=== PATIENT | male | born 1945 | race Caucasian/White ===

== ENCOUNTER 2017-02-09 10:05 | Inpatient (IN) | payer MEDICARE ==
[2017-02-09] MEDS ORDERED: ASPIRIN 81 MG CHEW PO STA (10:42)
[2017-02-09] MEDS ORDERED: NITROGLYCERIN SL TABS 0.4 MG TAB SUBLINGUAL STA ×3 (10:42)
--- NOTE | 2017-02-09 10:45 | ED ---
General Adult HPI - General Chief complaint: Chest Pain Stated complaint: CHEST PAIN Time Seen by Provider: 02/09/17 10:37 Source: patient, family, RN notes reviewed Mode of arrival: wheelchair Limitations: no limitations - History of Present Illness Initial comments: Patient is a pleasant 71-year-old male presenting to the emergency department complaining of chest discomfort. Symptoms have been intermittent over the past couple of weeks. Discomfort is currently 4/10. Discomfort feels like pressure. There is associated dyspnea. No nausea. No diaphoresis. Patient does have a history of similar symptoms previously associated with heart problems. Patient does have a history of 5 stents. - Related Data Home Medications Medication Instructions Recorded Confirmed Allopurinol [Zyloprim] 300 mg PO DAILY 06/07/14 02/09/17 Aspirin 325 mg PO DAILY 06/07/14 02/09/17 Insulin NPH Hum/Reg Insulin Hm 10 unit SQ AC-SUPPER 06/07/14 02/09/17 [NovoLIN 70-30 100 UNIT/ML VIAL] Insulin NPH Hum/Reg Insulin Hm 20 unit SQ AC-BRKFST 06/07/14 02/09/17 [NovoLIN 70-30 100 UNIT/ML VIAL] Isosorbide Mononitrate [Imdur] 30 mg PO DAILY 06/07/14 02/09/17 metFORMIN HCL 1,000 mg PO BID 06/07/14 02/09/17 Carvedilol [Coreg] 12.5 mg PO BID 03/07/16 02/09/17 Ergocalciferol [Vitamin D2 50,000 unit PO Q14D 03/07/16 02/09/17 (DRISDOL)] Ferrous Sulfate [Iron (65 MG 325 mg PO DAILY 03/07/16 02/09/17 Elemental)] Previous Rx's Medication Instructions Recorded Spironolactone [Aldactone] 25 mg PO DAILY #30 tab 03/09/16 Allergies Allergy/AdvReac Type Severity Reaction Status Date / Time No Known Allergies Allergy Verified 02/09/17 11:55 Review of Systems ROS Statement: Those systems with pertinent positive or pertinent negative responses have been documented in the HPI. ROS Other: All systems not noted in ROS Statement are negative. Constitutional: Denies: fever Eyes: Denies: eye pain ENT: Denies: ear pain Respiratory: Reports: dyspnea. Denies: cough Cardiovascular: Reports: chest pain Endocrine: Denies: fatigue Gastrointestinal: Denies: abdominal pain Genitourinary: Denies: dysuria Musculoskeletal: Denies: back pain Skin: Denies: rash Neurological: Denies: weakness Past Medical History Past Medical History: Diabetes Mellitus, GERD/Reflux, Hyperlipidemia, Musculoskeletal Disorder Additional Past Medical History / Comment(s): SEE H & P FOR CARDIAC HX Last Myocardial Infarction Date:: 2001 History of Any Multi-Drug Resistant Organisms: None Reported Past Surgical History: Heart Catheterization, Heart Catheterization With Stent, Joint Replacement, Orthopedic Surgery Additional Past Surgical History / Comment(s): BILAT TOTAL KNEE REPLACEMENT, RT KNEE SCOPE, BILAT CTR, (R) shoulder surgery. Past Anesthesia/Blood Transfusion Reactions: No Reported Reaction Date of Last Stent Placement:: 2001 Past Psychological History: No Psychological Hx Reported Smoking Status: Former smoker Past Alcohol Use History: None Reported Past Drug Use History: None Reported - Past Family History Father History Unknown: Yes Mother History Unknown: Yes Additional Family Medical History / Comment(s): pt states she is and he does not know history General Exam Limitations: no limitations General appearance: alert, in no apparent distress Head exam: Present: atraumatic Eye exam: Present: normal appearance, PERRL ENT exam: Present: normal oropharynx Neck exam: Present: normal inspection Respiratory exam: Present: normal lung sounds bilaterally. Absent: chest wall tenderness Cardiovascular Exam: Present: regular rate, normal rhythm Expanded Peripheral pulses: 2+: Radial (R), Radial (L), Posterior Tibialis (R), Posterior Tibialis (L) GI/Abdominal exam: Present: soft. Absent: tenderness Extremities exam: Present: normal inspection. Absent: pedal edema, calf tenderness Neurological exam: Present: alert Psychiatric exam: Present: normal affect, normal mood Skin exam: Absent: rash Course Vital Signs 02/09/17 02/09/17 02/09/17 10:15 10:45 11:18 Temperature 97.4 F L Pulse Rate 72 67 Pulse Rate [ 71 Brush Maker Machine ] Respiratory 20 18 Rate Blood Pressure 130/74 130/67 O2 Sat by Pulse 98 97 Oximetry 02/09/17 02/09/17 11:50 12:40 Temperature Pulse Rate 67 65 Pulse Rate [ Brush Maker Machine ] Respiratory 18 18 Rate Blood Pressure 130/73 125/58 O2 Sat by Pulse 98 98 Oximetry - Reevaluation(s) Reevaluation #1: 03/19/17 10:50 Repeat EKG shows normal sinus rhythm at 69. DC 170. QRS 126. QT 436. QTc 467. Left axis. Right bundle branch block. Inferior Q waves with T wave inversion. Q waves in leads V3 and V4 with T wave inversion. EKG Findings - EKG Comments: EKG Findings:: Normal sinus rhythm at 69. DC 180. QRS 126. QT 418. QTC 447. Left axis. Right bundle branch block. Inferior Q waves with inverted T waves. Poor R-wave progression. Q waves with inverted T waves laterally. Medical Decision Making - Medical Decision Making Patient reevaluated and resting comfortably in bed. Patient and family updated on results and plan. Case discussed in detail with Dr. Alcantara, who will admit for hospital call. Admission orders written. Cardiac consult placed. Heparin started IV. - Lab Data Result diagrams: 02/09/17 10:26 02/09/17 10:26 Lab Results 02/09/17 02/09/17 02/09/17 Range/Units 10:26 10:26 10:26 WBC 4.0 (3.8-10.6) k/uL RBC 3.89 L (4.30-5.90) m/uL Hgb 13.1 (13.0-17.5) gm/dL Hct 38.7 L (39.0-53.0) % MCV 99.5 (80.0-100.0) fL MCH 33.8 (25.0-35.0) pg MCHC 34.0 (31.0-37.0) g/dL RDW 13.8 (11.5-15.5) % Plt Count 84 L (150-450) k/uL Neutrophils % 59 % Lymphocytes % 30 % Monocytes % 5 % Eosinophils % 2 % Basophils % 1 % Neutrophils # 2.4 (1.3-7.7) k/uL Lymphocytes # 1.2 (1.0-4.8) k/uL Monocytes # 0.2 (0-1.0) k/uL Eosinophils # 0.1 (0-0.7) k/uL Basophils # 0.0 (0-0.2) k/uL Polychromasia Present PT (9.0-12.0) sec INR (<1.1) APTT (22.0-30.0) sec Sodium 143 (137-145) mmol/L Potassium 4.2 (3.5-5.1) mmol/L Chloride 105 (98-107) mmol/L Carbon Dioxide 25 (22-30) mmol/L Anion Gap 13 mmol/L BUN 11 (9-20) mg/dL Creatinine 0.70 (0.66-1.25) mg/dL Est GFR (MDRD) Af Amer >60 (>60 ml/min/1.73 sqM) Est GFR (MDRD) Non-Af >60 (>60 ml/min/1.73 sqM) Glucose 116 H (74-99) mg/dL Calcium 9.6 (8.4-10.2) mg/dL Magnesium 1.6 (1.6-2.3) mg/dL Total Bilirubin 0.9 (0.2-1.3) mg/dL AST 29 (17-59) U/L ALT 33 (21-72) U/L Alkaline Phosphatase 91 (38-126) U/L Total Creatine Kinase 31 L (55-170) U/L CK-MB (CK-2) 1.7 (0.0-2.4) ng/mL CK-MB (CK-2) Rel Index 5.5 Troponin I <0.012 (0.000-0.034) ng/mL Total Protein 7.1 (6.3-8.2) g/dL Albumin 4.2 (3.5-5.0) g/dL 02/09/17 Range/Units 10:26 WBC (3.8-10.6) k/uL RBC (4.30-5.90) m/uL Hgb (13.0-17.5) gm/dL Hct (39.0-53.0) % MCV (80.0-100.0) fL MCH (25.0-35.0) pg MCHC (31.0-37.0) g/dL RDW (11.5-15.5) % Plt Count (150-450) k/uL Neutrophils % % Lymphocytes % % Monocytes % % Eosinophils % % Basophils % % Neutrophils # (1.3-7.7) k/uL Lymphocytes # (1.0-4.8) k/uL Monocytes # (0-1.0) k/uL Eosinophils # (0-0.7) k/uL Basophils # (0-0.2) k/uL Polychromasia PT 11.0 (9.0-12.0) sec INR 1.1 (<1.1) APTT 21.9 L (22.0-30.0) sec Sodium (137-145) mmol/L Potassium (3.5-5.1) mmol/L Chloride (98-107) mmol/L Carbon Dioxide (22-30) mmol/L Anion Gap mmol/L BUN (9-20) mg/dL Creatinine (0.66-1.25) mg/dL Est GFR (MDRD) Af Amer (>60 ml/min/1.73 sqM) Est GFR (MDRD) Non-Af (>60 ml/min/1.73 sqM) Glucose (74-99) mg/dL Calcium (8.4-10.2) mg/dL Magnesium (1.6-2.3) mg/dL Total Bilirubin (0.2-1.3) mg/dL AST (17-59) U/L ALT (21-72) U/L Alkaline Phosphatase (38-126) U/L Total Creatine Kinase (55-170) U/L CK-MB (CK-2) (0.0-2.4) ng/mL CK-MB (CK-2) Rel Index Troponin I (0.000-0.034) ng/mL Total Protein (6.3-8.2) g/dL Albumin (3.5-5.0) g/dL - Radiology Data Radiology results: image reviewed (Chest x-ray shows no acute process) Critical Care Time Critical Care Time: Yes Total Critical Care Time: 31 Disposition Clinical Impression: Unstable angina pectoris Disposition: ADMITTED IP TO THIS [facility] Time of Disposition: 12:59
[2017-02-09 11:02] LABS: Basophils % (A) 1 %; CH 34.3; CHCM 34.7; Eosinophils # (A) 0.1 k/uL (0-0.7); Eosinophils % (A) 2 %; HCT 38.7 % (39.0-53.0); HDW 3.32; HGB 13.1 gm/dL (13.0-17.5); Luc # (Auto) 0.12; Luc % (Auto) 3; Lymphocytes # (A) 1.2 k/uL (1.0-4.8); Lymphocytes % (A) 30 %; MCH 33.8 pg (25.0-35.0); MCV 99.5 fL (80.0-100.0); Mean Platelet Volume 7.9; Monocytes # (A) 0.2 k/uL (0-1.0); Monocytes % (A) 5 %; Neutrophils # (A) 2.4 k/uL (1.3-7.7); Neutrophils % (A) 59 %; RBC 3.89 m/uL (4.30-5.90); RDW 13.8 % (11.5-15.5); WBC (Perox) 3.77
[2017-02-09 11:16] LABS: ALT 33 U/L (21-72); AST 29 U/L (17-59); Alkaline Phosphatase 91 U/L (38-126); Anion Gap 13 mmol/L; Blood Urea Nitrogen 11 mg/dL (9-20); Calcium 9.6 mg/dL (8.4-10.2); Carbon Dioxide 25 mmol/L (22-30); Chloride 105 mmol/L (98-107); Glucose 116 mg/dL (74-99); Magnesium 1.6 mg/dL (1.6-2.3); Non-African American GFR(MDRD) >60 (>60 ml/min/1.73 sqM); Potassium 4.2 mmol/L (3.5-5.1); Sodium 143 mmol/L (137-145); Total Bilirubin 0.9 mg/dL (0.2-1.3); Total Protein 7.1 g/dL (6.3-8.2)
[2017-02-09 11:20] LABS: Creatine Kinase 31 U/L (55-170)
[2017-02-09 11:31] LABS: Polychromasia Present
[2017-02-09 11:32] LABS: Creatine Kinase MB 1.7 ng/mL (0.0-2.4); Troponin I <0.012 ng/mL (0.000-0.034)
[2017-02-09 11:35] LABS: INR 1.1 (<1.1); Partial Thromboplastin Time 21.9 sec (22.0-30.0)
--- NOTE | 2017-02-09 12:26 | XR ---
EXAMINATION TYPE: XR chest 2V DATE OF EXAM: 02/09/2017 12:17 PM COMPARISON: Prior chest x-ray 07 March 2016 HISTORY: Chest pain TECHNIQUE: Frontal and lateral views of the chest are obtained. FINDINGS: There is no focal air space opacity, pleural effusion, or pneumothorax seen. The cardiac silhouette size is not significantly changed. Patient shows postoperative change to the shoulders. Heart size may be somewhat accentuated possibly due to technique. There are overlying cardiac leads. Prominent lung volumes may be indicative of underlying COPD. The osseous structures are intact. IMPRESSION: No acute cardiopulmonary process.
[2017-02-09] MEDS ORDERED: NITROGLYCERIN SL TABS 0.4 MG TAB SUBLINGUAL PRN (12:59)
[2017-02-09] MEDS ORDERED: HEPARIN SODIUM,PORCINE 5,000 UNIT/ML 1 ML VIAL IV ONE (12:59)
[2017-02-09] MEDS: HEPARIN SODIUM,PORCINE/D5W PMX 25,000 UNIT in DEXTROSE/WATER 1 500ML.BAG IV SCH (14:16)
--- NOTE | 2017-02-09 15:45 | P.CRDCN ---
History of Present Illness Consult date: 02/09/17 Chief complaint: Chest pain History of present illness: This is a pleasant 71-year-old gentleman who sees Dr. Johnson as an outpatient with known history of coronary artery disease with a prior stenting with unknown details at this point, diabetes, hypertension, and dyslipidemia, presented to the emergency room complaining of chest discomfort. The patient describes 3 weeks history of intermittent chest discomfort, mostly exertional, as a pressure on the chest, without any radiation and without any associated symptoms. He underwent an EKG which showed sinus rhythm with RBBB. No ischemic changes on the EKG noted. He underwent only one set of cardiac enzymes came in to be unremarkable. I will follow-up with the serial cardiac enzymes. Obtain the previous medical records from the office to see when was the last time he underwent stress test. And also continue following up with him Past Medical History Past Medical History: Diabetes Mellitus, GERD/Reflux, Hyperlipidemia, Musculoskeletal Disorder Additional Past Medical History / Comment(s): SEE H & P FOR CARDIAC HX Last Myocardial Infarction Date:: 2001 History of Any Multi-Drug Resistant Organisms: None Reported Past Surgical History: Heart Catheterization, Heart Catheterization With Stent, Joint Replacement, Orthopedic Surgery Additional Past Surgical History / Comment(s): BILAT TOTAL KNEE REPLACEMENT, RT KNEE SCOPE, BILAT CTR, (R) shoulder surgery. Past Anesthesia/Blood Transfusion Reactions: No Reported Reaction Date of Last Stent Placement:: 2001 Past Psychological History: No Psychological Hx Reported Smoking Status: Former smoker Past Alcohol Use History: None Reported Past Drug Use History: None Reported - Past Family History Father History Unknown: Yes Mother History Unknown: Yes Additional Family Medical History / Comment(s): pt states she is and he does not know history Medications and Allergies Home Medications Medication Instructions Recorded Confirmed Type Allopurinol [Zyloprim] 300 mg PO DAILY 06/07/14 02/09/17 History Aspirin 325 mg PO DAILY 06/07/14 02/09/17 History Insulin NPH Hum/Reg Insulin Hm 10 unit SQ AC-SUPPER 06/07/14 02/09/17 History [NovoLIN 70-30 100 UNIT/ML VIAL] Insulin NPH Hum/Reg Insulin Hm 20 unit SQ AC-BRKFST 06/07/14 02/09/17 History [NovoLIN 70-30 100 UNIT/ML VIAL] Isosorbide Mononitrate [Imdur] 30 mg PO DAILY 06/07/14 02/09/17 History metFORMIN HCL 1,000 mg PO BID 06/07/14 02/09/17 History Carvedilol [Coreg] 12.5 mg PO BID 03/07/16 02/09/17 History Ergocalciferol [Vitamin D2 50,000 unit PO Q14D 03/07/16 02/09/17 History (DRISDOL)] Ferrous Sulfate [Iron (65 MG 325 mg PO DAILY 03/07/16 02/09/17 History Elemental)] Allergies Allergy/AdvReac Type Severity Reaction Status Date / Time No Known Allergies Allergy Verified 02/09/17 11:55 Physical Exam Vitals: Vital Signs Temp Pulse Pulse Resp BP BP Pulse Ox 02/09/17 15:36 98 F 73 16 170/81 96 02/09/17 14:37 97.4 F L 65 18 125/58 98 Intake and Output 02/09/17 02/09/17 02/09/17 06:59 14:59 22:59 Other: Weight 115.6 kg Patient Weight 02/10/17 06:59 Weight 115.6 kg - Constitutional General appearance: no acute distress - Respiratory Respiratory: bilateral: CTA - Cardiovascular Rhythm: regular Heart sounds: normal: S1, S2 Results 02/09/17 10:26 02/09/17 10:26 Current Medications Generic Name Dose Route Start Last Admin Trade Name Freq PRN Reason Stop Dose Admin Aspirin 325 mg 02/10/17 09:00 Aspirin PO DAILY [facility] Heparin Sodium (Porcine) 0 unit 02/09/17 12:59 Heparin IV Q6HR PRN Low PTT Protocol Heparin Sodium/Dextrose 25,000 500 mls @ 19.97 mls/hr 02/09/17 13:00 14:16 unit/ IV Solution IV 8.47 units/kg/hr .Q24H BRINDA 19.97 mls/hr Protocol Administration 8.47 UNITS/KG/HR Nitroglycerin 1 inch 02/09/17 18:00 Nitro-Bid Oint TOPICAL Q6HR [facility] Nitroglycerin 0.4 mg 02/09/17 12:59 Nitrostat SUBLINGUAL Q5M PRN Chest Pain Intake and Output 02/09/17 02/09/17 02/09/17 06:59 14:59 22:59 Other: Weight 115.6 kg Patient Weight 02/10/17 06:59 Weight 115.6 kg Assessment and Plan Plan: Assessment #1 intermittent episodes of chest discomfort mostly exertional #2 known CAD with a prior stenting with unknown details #3 diabetes #4 multiple comorbid conditions Plan #1 rule out acute coronary event #2 follow-up with the serial cardiac enzymes #3 obtain the previous medical records from the office #4 follow-up with the patient
[2017-02-09 16:36] LABS: Creatine Kinase 26 U/L (55-170)
[2017-02-09 16:49] LABS: Creatine Kinase MB 1.5 ng/mL (0.0-2.4); Troponin I <0.012 ng/mL (0.000-0.034)
[2017-02-09 17:14] LABS: Glucose,Whole Blood 109 mg/dL (75-99)
[2017-02-09] MEDS: INSULIN NPH/REG INSULIN 70/30 300 UNIT/3 ML VIAL SQ SCH (19:31)
[2017-02-09] MEDS: NITROGLYCERIN OINT 1 INCH/GM PACKET TOPICAL SCH (19:32)
[2017-02-09] MEDS: CARVEDILOL 12.5 MG TAB PO SCH (19:36)
[2017-02-09] MEDS: metFORMIN 500 MG TAB PO SCH (19:36)
[2017-02-09 20:57] LABS: Glucose,Whole Blood 130 mg/dL (75-99)
[2017-02-09] MEDS: HEPARIN SODIUM,PORCINE 5,000 UNIT/ML 1 ML VIAL IV PRN (22:31)
[2017-02-09 23:39] LABS: Creatine Kinase 28 U/L (55-170)
[2017-02-09 23:50] LABS: Creatine Kinase MB 1.4 ng/mL (0.0-2.4); Troponin I <0.012 ng/mL (0.000-0.034)
[2017-02-10] MEDS: NITROGLYCERIN OINT 1 INCH/GM PACKET TOPICAL SCH ×4 (04:12→17:49)
[2017-02-10 06:02] LABS: Mean Platelet Volume 8.1
[2017-02-10] MEDS: HEPARIN SODIUM,PORCINE 5,000 UNIT/ML 1 ML VIAL IV PRN (06:35)
[2017-02-10 07:05] LABS: Glucose,Whole Blood 105 mg/dL (75-99)
--- NOTE | 2017-02-10 07:15 | HP ---
DATE OF ADMISSION: 02/09/2017 CHIEF COMPLAINT: Chest pain. HISTORY OF PRESENT ILLNESS: Mr. Johnson is a 71-year-old male with a past medical history of coronary artery disease, status post stenting, diabetes mellitus and hypertension; coming into the hospital with a chief complaint of chest pain. The patient states that his pain is mostly substernal in nature with no radiation. The patient states it has been going on and off for the past 2 to 3 weeks. It is mostly exertional. The patient denies having any difficulty in breathing, any dizziness or diaphoresis with the chest pain. The patient denies having any lower extremity swelling. No orthopnea, no PND. Patient does have history of coronary artery disease, states that he has five stents and follows with Dr. Marco Alejandre. He recently had shoulder arthroplasty done. REVIEW OF SYSTEMS: CONSTITUTIONAL: Denies having any fever, chills or rigors. CHEST: No cough, no difficulty in breathing. CARDIAC: As per HPI. GI: No abdominal pain, nausea, vomiting, or diarrhea. : No dysuria or hematuria. DERMATOLOGIC: No history of recurrent infections or easy bruising. RHEUMATOLOGIC: None. ENDOCRINE: Positive for history of hypertension and diabetes. SKIN: No rashes. MUSCULOSKELETAL: Positive for osteoarthritis in multiple joints. All 13 review of systems are done and negative except for the ones mention in the HPI. PAST MEDICAL HISTORY: Significant for hypertension, diabetes GERD, hyperlipidemia and coronary artery disease status post stenting. ALLERGIES: No known drug allergies. PAST SURGICAL HISTORY: Heart catheterization with stent placement done, multiple orthopedic surgeries. FAMILY HISTORY: Positive for cancer in his mother and coronary artery disease in his father and diabetes mellitus in his grandmother. SOCIAL HISTORY: Former smoker. Occasional alcohol. No history of intravenous drug abuse. The patient's home medications: Metformin 1000 mg p.o. b.i.d., isosorbide mononitrate 30 mg p.o. daily, aspirin 325 mg p.o. daily, allopurinol 300 mg p.o. daily, insulin 70/30-20 units with breakfast and 10 units, ferrous sulfate 325 mg p.o. daily, vitamin D2 50,000 units in 2 weeks, Coreg 12.5 mg p.o. b.i.d., spironolactone 25 mg p.o. daily. On examination, patient's vital signs temperature 98.4, heart rate 75, respirations 16, blood pressure 154/75, saturating at 96% on room air. GENERAL EXAMINATION: Patient appears to be in no acute distress. HEAD: Atraumatic, normocephalic. EYES: Pupils, round, and reactive to light. NECK: No JVD. No thyromegaly. CARDIOVASCULAR: S1, S2 heard. No additional sounds. RESPIRATORY: Bilateral breath sounds are positive. No wheeze or crackles. ABDOMEN: Soft, nontender, no organomegaly. Bowel sounds are positive. EXTREMITIES: No edema. No cyanosis, no clubbing. There is mild pitting tenderness in the left arm and lower extremity that the patient states is chronic. PSYCHIATRIC: Appropriate mood and affect. GREENHOUSE GROWER: Alert, awake, oriented x3. No focal neurological deficits. SKIN: No rashes. The patient's white count of 4, hemoglobin 13.1, platelets 84, sodium 143, potassium 4.2, chloride 105, bicarb 25, BUN 11, creatinine 0.70. Troponin less than 0.012 x 2. Albumin is 4.2. ASSESSMENT AND PLAN: 1. Unstable angina. 2. History of coronary artery disease, status post stenting. 3. Type 2 diabetes mellitus, insulin-dependent. 4. Hypertension. 5. Hyperlipidemia. 6. Osteoarthritis, multiple joint. 7. Gastroesophageal reflux disease. PLAN: The patient has been initiated on a heparin drip which will be continued. Will get serial troponins and EKGs. Patient follows with Dr. Marco Alejandre on an outpatient and states that his last stress test was in May of 2016. Will obtain the records. Cardiology on board following the patient and further recommendations to follow depending on the progress of the patient.
[2017-02-10 07:35] LABS: Cholesterol 120 mg/dL (<200); HDL Cholesterol 35 mg/dL (40-60); Triglycerides 270 mg/dL (<150)
[2017-02-10] MEDS ORDERED: ALPRAZolam 0.5 MG TAB PO PRN (08:48)
[2017-02-10] MEDS ORDERED: ASPIRIN 325 MG TAB PO STA (08:48)
[2017-02-10] MEDS ORDERED: ALPRAZolam 0.25 MG TAB PO PRN (08:48)
[2017-02-10] MEDS ORDERED: ATORVASTATIN 80 MG TAB PO STA (08:48)
[2017-02-10] MEDS ORDERED: SODIUM CHLORIDE 0.9% 1,000 ML in EMPTY BAG 1 BAG IV ONE (08:48)
[2017-02-10] MEDS ORDERED: NITROGLYCERIN SL TABS 0.4 MG TAB SUBLINGUAL PRN ×2 (08:48→12:39)
[2017-02-10] MEDS: metFORMIN 500 MG TAB PO SCH (09:08)
[2017-02-10] MEDS: INSULIN NPH/REG INSULIN 70/30 300 UNIT/3 ML VIAL SQ SCH ×2 (09:08→17:53)
[2017-02-10] MEDS: ALLOPURINOL 300 MG TAB PO SCH (09:11)
[2017-02-10] MEDS: SPIRONOLACTONE 25 MG TAB PO SCH (09:11)
[2017-02-10] MEDS: FERROUS SULFATE 325 MG TAB PO SCH (09:11)
[2017-02-10] MEDS: CARVEDILOL 12.5 MG TAB PO SCH ×2 (09:11→17:49)
[2017-02-10] MEDS: ISOSORBIDE MONONITRATE ER 30 MG TAB.ER.24H PO SCH (09:11)
--- NOTE | 2017-02-10 09:29 | PN ---
Vasquez Johnson is a 71-year-old gentleman who is admitted to hospital with unstable angina. Has known coronary artery disease and has had multiple prior angioplasties by his primary senior coldfusion developer Dr. Marco Alejandre. Since admission he ruled out for myocardial infarction and is pain-free this morning. I talked to him about his treatment options including undergoing a stress test or going through invasive angiography to definitively rule out progression in his underlying CAD. The patient opted to have a cardiac catheterization and I spoke to Dr. Morrow, who saw him on this admission to go ahead and do this today.
[2017-02-10] MEDS ORDERED: IV FLUID CONTINUATION 1,000 ML IV ONE (11:33)
[2017-02-10] MEDS ORDERED: MIDAZOLAM 2 MG/2 ML VIAL ONE (11:39)
[2017-02-10] MEDS ORDERED: LIDOCAINE 2% INJ 20 MG/ML (20 ML MDV) ONE (11:39)
[2017-02-10] MEDS ORDERED: VERAPAMIL 2.5 MG/ML 2 ML AMP ONE (11:39)
[2017-02-10] MEDS ORDERED: SODIUM CHLORIDE 0.9% (PF) 10 ML VIAL ONE (11:39)
[2017-02-10] MEDS ORDERED: HEPARIN SODIUM 1,000 UNIT/ML VIAL ONE (11:42)
[2017-02-10] MEDS ORDERED: MIDAZOLAM 2 MG/2 ML VIAL IVP ONE (11:55)
[2017-02-10] MEDS ORDERED: LIDOCAINE 2% (PF) 20 MG/ML 10ML SQ ONE (11:57)
[2017-02-10] MEDS ORDERED: LIDOCAINE 2% INJ 20 MG/ML SQ ONE (11:57)
[2017-02-10] MEDS ORDERED: VERAPAMIL SYRINGE (5 MG/10 ML) INTRAARTER ONE ×2 (11:58→12:21)
[2017-02-10] MEDS ORDERED: HEPARIN SODIUM 1,000 UNIT/ML VIAL IV ONE (12:00)
[2017-02-10] MEDS ORDERED: BIVALIRUDIN BOLUS 250 MG/50 ML IV ONE (12:10)
[2017-02-10] MEDS ORDERED: CLOPIDOGREL 75 MG TAB ONE (12:17)
[2017-02-10] MEDS ORDERED: NITROGLYCERIN 1000MCG/10ML SYRINGE INTRACORON ONE (12:18)
--- NOTE | 2017-02-10 12:18 | ECHOF ---
Referral Reason:chest pain MEASUREMENTS -------- HEIGHT: 170.2 cm WEIGHT: 115.2 kg BP: 123/61 RVIDd: 3.7 cm (< 3.3) IVSd: 1.1 cm (0.6 - 1.1) LVIDd: 5.8 cm (3.9 - 5.3) LVPWd: 1.2 cm (0.6 - 1.1) IVSs: 1.8 cm LVIDs: 4.3 cm LVPWs: 1.8 cm LA Diam: 4.3 cm (2.7 - 3.8) LAESV Index (A-L): 31.04 ml/m Ao Diam: 3.4 cm (2.0 - 3.7) AV Cusp: 2.1 cm (1.5 - 2.6) LA Diam: 3.7 cm (2.7 - 3.8) MV EXCURSION: 15.662 mm (> 18.000) MV EF SLOPE: 39 mm/s (70 - 150) EPSS: 1.1 cm MV E Venkat: 0.77 m/s MV DecT: 341 ms MV A Vnekat: 0.98 m/s MV E/A Ratio: 0.79 RAP: 5.00 mmHg RVSP: 17.95 mmHg FINDINGS -------- Sinus rhythm. This was a technically difficult study with suboptimal views. There is borderline concentric left ventricular hypertrophy. Overall left ventricular systolic function is mild-moderately impaired with, an EF between 40 - 45 %. Basal lateral LV wall motion is hypokinetic. Basal inferior LV wall motion is normal. Mid lateral LV wall motion is normal. Mid inferior LV wall motion is normal. The right ventricle is mildly enlarged. LA is midly dilated 29-33ml/m2. The right atrium is normal in size. 1.5mg of Definity was utilized for enhancement of images Aortic valve is trileaflet and is mildly thickened. Mild mitral annular calcification present. There is trace mitral regurgitation. Trace tricuspid regurgitation present. Trace/mild (physiologic) pulmonic regurgitation. The aortic root, ascending aorta and aortic arch are normal. Normal inferior vena cava with normal inspiratory collapse consistent with estimated right atrial pressure of 5 mmHg. Echo free space may represent effusion or a pericardial fat pad. CONCLUSIONS -------- 1. Sinus rhythm. 2. LA is midly dilated 29-33ml/m2. 3. The right atrium is normal in size. 4. 1.5mg of Definity was utilized for enhancement of images 5. Aortic valve is trileaflet and is mildly thickened. 6. Mild mitral annular calcification present. 7. There is trace mitral regurgitation. 8. Trace tricuspid regurgitation present. 9. Trace/mild (physiologic) pulmonic regurgitation. 10. The aortic root, ascending aorta and aortic arch are normal. 11. Normal inferior vena cava with normal inspiratory collapse consistent with estimated right atrial pressure of 5 mmHg. 12. This was a technically difficult study with suboptimal views. 13. Echo free space may represent effusion or a pericardial fat pad. 14. There is borderline concentric left ventricular hypertrophy. 15. Overall left ventricular systolic function is mild-moderately impaired with, an EF between 40 - 45 %. 16. Basal lateral LV wall motion is hypokinetic. 17. Basal inferior LV wall motion is normal. 18. Mid lateral LV wall motion is normal. 19. Mid inferior LV wall motion is normal. 20. The right ventricle is mildly enlarged. DRY CELL SEALER: Mercy Harris RDCS
[2017-02-10] MEDS ORDERED: CLOPIDOGREL 75 MG TAB PO ONE (12:20)
[2017-02-10] MEDS ORDERED: IOHEXOL 350 MG/ML 100 ML BOTTLE INJ ONE (12:23)
[2017-02-10] MEDS ORDERED: BIVALIRUDIN 250 MG in SODIUM CHLORIDE 0.9% 50 ML IV ONE (12:32)
[2017-02-10] MEDS ORDERED: ATROPINE SULFATE 0.1 MG/ML 10ML SYRINGE IV PRN (12:39)
[2017-02-10] MEDS ORDERED: MAG HYDROX/AL HYDROX/SIMETH 30 ML CUP PO PRN (12:39)
[2017-02-10] MEDS ORDERED: RX INFO: IV CONTRAST WAS GIVEN 1 EACH MISC MISCELLANE PRN (12:39)
[2017-02-10] MEDS ORDERED: ZOLPIDEM 5 MG TAB PO PRN (12:39)
[2017-02-10] MEDS ORDERED: SODIUM CHLORIDE 0.9% 1,000 ML IV SCH (12:45)
[2017-02-10] MEDS ORDERED: HYDROmorphone 1 MG/ML 1 ML SYRINGE IVP PRN (13:18)
[2017-02-10] MEDS: ASPIRIN 325 MG TAB PO SCH (15:30)
[2017-02-10] MEDS: HEPARIN SODIUM,PORCINE/D5W PMX 25,000 UNIT in DEXTROSE/WATER 1 500ML.BAG IV SCH (15:32)
[2017-02-10 16:51] LABS: Glucose,Whole Blood 105 mg/dL (75-99)
[2017-02-10 20:51] LABS: Glucose,Whole Blood 122 mg/dL (75-99)
[2017-02-10] MEDS ORDERED: ATORVASTATIN 80 MG TAB PO SCH (21:00)
[2017-02-11] MEDS: NITROGLYCERIN OINT 1 INCH/GM PACKET TOPICAL SCH ×4 (00:05→17:25)
[2017-02-11 05:47] LABS: Glucose,Whole Blood 121 mg/dL (75-99)
[2017-02-11 06:32] LABS: Basophils % (A) 1 %; CH 33.8; CHCM 34.7; Eosinophils # (A) 0.1 k/uL (0-0.7); Eosinophils % (A) 3 %; HCT 36.8 % (39.0-53.0); HDW 3.28; HGB 12.8 gm/dL (13.0-17.5); Luc # (Auto) 0.17; Luc % (Auto) 4; Lymphocytes % (A) 25 %; MCHC 34.7 g/dL (31.0-37.0); Mean Platelet Volume 8.3; Monocytes # (A) 0.2 k/uL (0-1.0); Monocytes % (A) 6 %; Neutrophils # (A) 2.3 k/uL (1.3-7.7); Neutrophils % (A) 61 %; RBC 3.75 m/uL (4.30-5.90); RDW 13.7 % (11.5-15.5); WBC 3.8 k/uL (3.8-10.6); WBC (Perox) 3.69
[2017-02-11 06:46] LABS: Anion Gap 10 mmol/L; Blood Urea Nitrogen 12 mg/dL (9-20); Calcium 9.5 mg/dL (8.4-10.2); Carbon Dioxide 26 mmol/L (22-30); Chloride 104 mmol/L (98-107); Glucose 112 mg/dL (74-99); Non-African American GFR(MDRD) >60 (>60 ml/min/1.73 sqM); Potassium 4.1 mmol/L (3.5-5.1); Sodium 140 mmol/L (137-145)
[2017-02-11] MEDS: CARVEDILOL 12.5 MG TAB PO SCH ×2 (06:54→17:23)
[2017-02-11] MEDS: INSULIN NPH/REG INSULIN 70/30 300 UNIT/3 ML VIAL SQ SCH ×2 (06:54→17:24)
--- NOTE | 2017-02-11 07:06 | PN ---
DATE OF SERVICE: 02/10/2017 INTERVAL HISTORY: Mr. Johnson is a 71-year-old male with a past medical history of coronary artery disease, status post 5 stents placement, diabetes mellitus, hypertension admitted to the hospital with a chief complaint of chest pain. Patient complained of exertional chest pain and cardiology on board and patient has been scheduled for a cardiac cath today. ON REVIEW OF SYSTEMS: CONSTITUTIONAL: Denies having any fever, chills or rigors. RESPIRATORY; No cough. No difficulty in breathing. GI: No abdominal pain, nausea, vomiting or diarrhea. CARDIAC: No chest pain, no palpitations. : No dysuria or hematuria. Patient's medications have been reviewed. On examination, patient's vital signs: Temperature 97, heart rate 70, respiratory rate 17, blood pressure 136/63 saturating 97% on room air. GENERAL EXAMINATION: Patient appears to be in no acute distress. HEAD: Atraumatic, normocephalic. EYES: Pupils round and reactive to light. NECK: No JVD. No thyromegaly. CARDIOVASCULAR: S1, S2 heard. RESPIRATORY; Bilateral breaths sounds are positive. No wheeze or crackles. ABDOMEN: Soft, nontender. Bowel sounds positive. EXTREMITIES: No edema. No cyanosis. No clubbing. HARNESS BUILDER: Alert, awake, oriented x3. No focal neurological deficits. SKIN: No rash. PSYCHIATRIC: Appropriate mood and affect. PATIENT'S LABS: No new labs from today. Labs from yesterday within normal limits. ASSESSMENT AND PLAN: 1. Unstable angina. 2. History of coronary artery disease, status post stenting. 3. Type 2 diabetes mellitus, insulin dependent. 4. Hypertension. 5. Hyperlipidemia. 6. Osteoarthritis multiple joints, primary. 7. Gastroesophageal reflux disease. PLAN: Patient was initially started on heparin drip with monitoring of serial troponins and EKGs. Today Cardiology, Dr. Akhtar has taken the patient for a cardiac cath. Further recommendations depending on the progress of the patient.
[2017-02-11 08:21] LABS: Hemoglobin A1C 5.3 % (4.2-6.1)
[2017-02-11] MEDS: ALLOPURINOL 300 MG TAB PO SCH (08:38)
[2017-02-11] MEDS: FERROUS SULFATE 325 MG TAB PO SCH (08:38)
[2017-02-11] MEDS: ISOSORBIDE MONONITRATE ER 30 MG TAB.ER.24H PO SCH (08:39)
[2017-02-11] MEDS: SPIRONOLACTONE 25 MG TAB PO SCH (08:39)
[2017-02-11] MEDS: ASPIRIN 325 MG TAB PO SCH (08:42)
--- NOTE | 2017-02-11 08:49 | P.PN ---
Subjective Principal diagnosis: Chest Pain This is a pleasant 71-year-old gentleman who sees Dr. Johnson in the office. He has a known history of coronary artery disease and prior stenting, diabetes, hypertension and dyslipidemia. He presented to the emergency room complaining of chest discomfort intermittent for the last 3 weeks. Chest pain was mostly exertional and described as a pressure. No radiation or associated symptoms. EKG on admission showed sinus rhythm with a right bundle branch block and troponin was negative 3. Patient underwent cardiac catheterization by Dr. Morrow , right radial approach and stent placement to the proximal RCA. Patient has been up and bleeding this morning and is feeling well. Denies further complaints of chest pressure. He has no complains of shortness of breath, dizziness, edema, palpitations or syncope. Objective - Vital Signs Vital signs: Vital Signs Temp 97.7 F 02/11/17 04:00 Pulse 66 02/11/17 04:00 Resp 18 02/11/17 04:00 BP 124/68 02/11/17 04:00 Pulse Ox 96 02/11/17 04:00 Intake & Output 02/10/17 02/11/17 02/11/17 18:59 06:59 18:59 Intake Total 940 600 Output Total 200 Balance 740 600 Intake: Intake, IV Titration 700 Amount Sodium Chloride 0.9% 1, 700 000 ml @ 100 mls/hr IV . Q10H BRINDA Rx#:[id number] Oral 240 600 Output: Urine 200 Other: Voiding Method Toilet Toilet # Voids 1 3 - Exam PHYSICAL EXAMINATION: HEENT: Head is atraumatic, normocephalic. Pupils equal, round. Neck is supple. There is no elevated jugular venous pressure. HEART EXAMINATION: Heart sounds regular, S1 and S2 normal. No murmur or gallop heard. CHEST EXAMINATION: Lungs are clear to auscultation and precussion. No chest wall tenderness is noted on palpation or with deep breathing. ABDOMEN: Soft, obese, nontender. Bowel sounds are heard. No organomegaly noted. EXTREMITIES: 2+ peripheral pulses with no evidence of peripheral edema and no calf tenderness noted. Right radial puncture site soft without hematoma. NEUROLOGIC patient is awake, alert and oriented x3. . - Labs CBC & Chem 7: 02/11/17 05:47 02/11/17 05:47 Labs: Abnormal Lab Results - Last 24 Hours (Table) 02/10/17 02/10/17 02/11/17 Range/Units 16:49 20:50 05:46 RBC (4.30-5.90) m/uL Hgb (13.0-17.5) gm/dL Hct (39.0-53.0) % Plt Count (150-450) k/uL Glucose (74-99) mg/dL POC Glucose (mg/dL) 105 H 122 H 121 H (75-99) mg/dL 02/11/17 02/11/17 Range/Units 05:47 05:47 RBC 3.75 L (4.30-5.90) m/uL Hgb 12.8 L (13.0-17.5) gm/dL Hct 36.8 L (39.0-53.0) % Plt Count 74 L (150-450) k/uL Glucose 112 H (74-99) mg/dL POC Glucose (mg/dL) (75-99) mg/dL Assessment and Plan Plan: Assessment and plan #1 chest pain #2 status post stent placement to the proximal RCA #3 known history of CAD #4 diabetes #5 obesity From cardiology's standpoint, patient may be discharged home today. Continue Aldactone 25 mg by mouth daily, Imdur 30 mg by mouth daily, aspirin 325 mg by mouth daily, Plavix 75 mg by mouth daily and carvedilol 12.5 milligrams by mouth twice a day. He will see Dr. Johnson in the office in one week for follow-up. The above dictated assessment and findings were discussed with signing physician. The impression and plan of care have been directed as dictated. Maria E Juarez, Nurse Practitioner, acting as scribe for signing physician.
[2017-02-11 09:46] VITALS: RESP 16; TEMP 96.6
--- NOTE | 2017-02-11 10:22 | LTR ---
February 10, 2017 Dr. Izaguirre RE: Vasquez Johnson Dear Dr. Izaguirre Mr. Vasquez Johnson presented to the hospital with chest discomfort concerning for angina and he underwent a heart catheterization and stenting of the right coronary artery. Thank you for allowing us to participate in his care. Please do not hesitate to call if you have any questions or concerns. Sincerely, IVA JACKSON MD
--- NOTE | 2017-02-11 10:25 | CC ---
DATE OF SERVICE: 02/10/2017 PERFORMING PHYSICIAN: Ankur Morrow, decorative greens cutter. PROCEDURES PERFORMED: 1. Selective right and left coronary angiogram. 2. Successful stenting of the mid right coronary artery using 3.25 x 23 mm Xience MARGI with a good angiographic result. INDICATION: This is a pleasant 71-year-old gentleman with a known history of coronary artery disease, who sees Dr. Marco Alejandre as an outpatient, with prior stenting of the distal right coronary artery, who presented to the hospital with chest discomfort concerning for angina. APPROACH: Right radial artery. COMPLICATIONS: None. LEVEL OF SEDATION: Moderate with a sedation length of about of about 30 minutes. PROCEDURE DESCRIPTION: After obtaining informed consent, the patient was brought to the cardiac laboratory apparatus glass blower. The right radial artery was cannulated using micropuncture technique and the micropuncture wire passed easily. Then I placed 6 Georgian sheath in the right radial artery. Subsequently, selective right and left coronary angiogram using JR4 and JL 3.5 diagnostic catheters. Then I did intervene on the RCA. Please see separate paragraph for that. SELECTIVE CORONARY ANGIOGRAM: 1. The right coronary artery is a large-caliber vessel, and it is a dominant vessel. The proximal RCA appeared to have mild disease only. The mid RCA has a long tubular lesion, seems to be in the range of 70% to 80%. The RCA distally appeared to have mild disease only. It bifurcates into PDA and PLV branches. The RCA distally is stented. 2. The left main has mild disease distally in the range of 20% to 30%. It bifurcates into the left circumflex and left anterior descending artery. 3. The left circumflex is a large-caliber vessel and it is a nondominant vessel. The proximal left circumflex appeared to be angiographically normal and gives rises into the first obtuse marginal branch, which trifurcates into 3 separate branches. All of them are angiographically normal and the circ continues as a small-caliber vessel in the AV groove. 4. Left anterior descending artery. The proximal left anterior descending artery appeared to be angiographically normal. The mid LAD by the bifurcation of the first diagonal branch has a tubular lesion, appeared to be in the range of 40% to 50%. The LAD distally is angiographically normal. The first diagonal branch is a large-caliber vessel with mild disease in the ostium. PERCUTANEOUS CORONARY INTERVENTION OF THE RIGHT CORONARY ARTERY: Anticoagulation was initiated using Angiomax. Subsequently, I did engage the RCA using JR4 guiding catheter. It was wired using a Whisper wire. Subsequently, I did pre-dilatation using 3.0 x 20 mm balloon. Then I deployed 3.25 x 23 mm Xience MARGI, where the stent was positioned under fluoroscopy guidance and it was deployed under 10 atmospheres for 30 seconds. The following angiogram showed good angiographic result without perforation and without dissection with IMMANUEL-3 flow. The procedure was completed without any complication. CONCLUSION: 1. Intermittent episodes of chest discomfort concerning for angina. 2. Calcified right and left coronary system. 3. Patent stent in the distal right coronary artery. 4. Severe disease involving the mid right coronary artery. 5. Intermediate disease involving the mid left anterior descending artery. 6. Successful stenting of the mid right coronary artery using 3.25 x 23 mm Xience MARGI with a good angiographic result. POSTPROCEDURE MANAGEMENT: 1. Dual antiplatelet therapy. 2. Risk factor modification. 3. Follow up with the patient.
[2017-02-11 11:48] LABS: Glucose,Whole Blood 104 mg/dL (75-99)
[2017-02-11 12:39] VITALS: PULSE 71
[2017-02-11] MEDS ORDERED: CLOPIDOGREL 75 MG TAB PO SCH (12:40)
[2017-02-11 16:25] VITALS: BP 130/64
[2017-02-11 17:15] LABS: Glucose,Whole Blood 126 mg/dL (75-99)
--- NOTE | 2017-02-13 05:28 | DS ---
DATE OF ADMISSION: 02/10/2017 DATE OF DISCHARGE: 02/11/2017 DISCHARGE DIAGNOSES: 1. Chest pain, status post cardiac catheterization with stent placement. 2. History of coronary artery disease, status post stent placement x5 in the past. 3. Type 2 diabetes mellitus, insulin dependent. 4. Hypertension. 5. Hyperlipidemia. 6. Osteoarthritis of multiple joints. 7. Gastroesophageal reflux disease. HOSPITAL COURSE: Mr. Johnson is a 71-year-old male with a known history of coronary artery disease with stent and multiple stents, came to the hospital with complaints of chest pain exertional and patient had troponin negative. Otherwise due to history of multiple stents in the past, the patient underwent cardiac catheterization and successful stenting. Otherwise, the patient is chest pain free now. The patient was started on Plavix and other medications. Follow up in the cardiology clinic. Otherwise, the patient was cleared by Cardiology for discharge. DISCHARGE PHYSICAL EXAMINATION: A 71-year-old male lying in bed comfortably, awake alert, oriented x3, appears to be in no apparent distress. VITALS: Blood pressure is 130/64, pulse is 71, respiratory rate 16, temperature afebrile, pulse ox 94% on room air. Laboratory data reviewed. Discharge physical examination done. Discharge medications include: 1. Zyloprim 300 mg p.o. daily. 2. Aspirin 325 mg p.o. daily. 3. Insulin 70/30, 10 units a.c. supper and 20 units a.c. breakfast. 4. Imdur 30 mg p.o. daily. 5. Metformin 30 mg p.o. b.i.d. 6. Vitamin D2, 50,000 units p.o. q.14 days. 7. Ferrous sulfate 325 mg p.o. daily. 8. Spironolactone 25 mg p.o. daily. 9. Atorvastatin 80 mg p.o. at bedtime. 10. Coreg 12.5 mg p.o. b.i.d. with meals. 11. Plavix 75 mg p.o. daily. 12. Nitroglycerin sublingual 0.4 mg q.5 minutes p.r.n. for chest pain. Patient will be discharged home on home with self-care. Activity as tolerated. Heart healthy diet. To follow with Dr. Marco Alejandre and follow with Dr. Carrie Izaguirre.
[2017-02-15] MEDS ORDERED: ERGOCALCIFEROL 50,000 UNIT CAP PO SCH (09:00)
== END 2017-02-11 18:20 | disposition home or self-care (01) | DRG 247 ==
LOC: EC 10:05 → 3OBS 13:01 → OBSVTOIN 02-10 14:37 → 6SEL 02-10 14:46
PROVIDERS: ADMIT Internal Medicine; ATTEND Internal Medicine
PROC: B2111ZZ Fluoroscopy of Multiple Coronary Arteries using Low Osmolar Contrast (ICD-10-PCS; 2017-02-10)
PROC: 027034Z Dilation of Coronary Artery, One Artery with Drug-eluting Intraluminal Device, Percutaneous Approach (ICD-10-PCS; principal; 2017-02-10 11:25)
PROC: 4A023N7 Measurement of Cardiac Sampling and Pressure, Left Heart, Percutaneous Approach (ICD-10-PCS; 2017-02-10 11:25)
DX: I25.110 Atherosclerotic heart disease of native coronary artery with unstable angina pectoris (principal); I10 Essential (primary) hypertension; E78.5 Hyperlipidemia, unspecified; K21.9 Gastro-esophageal reflux disease without esophagitis; E66.9 Obesity, unspecified; I45.10 Unspecified right bundle-branch block; I25.2 Old myocardial infarction; E11.9 Type 2 diabetes mellitus without complications; R06.00 Dyspnea, unspecified; M15.9 Polyosteoarthritis, unspecified; Z95.5 Presence of coronary angioplasty implant and graft; Z79.4 Long term (current) use of insulin; Z79.82 Long term (current) use of aspirin; Z79.899 Other long term (current) drug therapy; Z82.49 Family history of ischemic heart disease and other diseases of the circulatory system; Z83.3 Family history of diabetes mellitus; Z80.9 Family history of malignant neoplasm, unspecified; Z87.891 Personal history of nicotine dependence; Z96.619 Presence of unspecified artificial shoulder joint; Z96.653 Presence of artificial knee joint, bilateral; Z68.39 Body mass index [BMI] 39.0-39.9, adult
CPT/HCPCS: 36415; 71020; 80048; 80053; 80061; 82550; 82553; 83036; 83735; 84484; 85025; 85049; 85610; 85730; 93005; 93306; 93454; 94760; 96365; 96366; 96376; 99291

== ENCOUNTER 2017-04-04 11:53 | Emergency (ER) | payer MEDICARE ==
[2017-04-04 12:59] VITALS: BP 131/61; PULSE 71; RESP 18; TEMP 97.5
--- NOTE | 2017-04-04 13:27 | ED ---
Lower Extremity Injury HPI - General Chief Complaint: Extremity Injury, Lower Stated Complaint: rt baby toe injury Time Seen by Provider: 04/04/17 13:18 Source: patient, RN notes reviewed Mode of arrival: wheelchair Limitations: no limitations - History of Present Illness Initial Comments: This a 71-year-old male presents emergency Department with chief complaint of right foot injury. Patient states that he kicked a chair last night. Patient states is on accident. Patient states he noticed some swelling, ecchymosis today. Patient denies any paresthesias. Patient has no open wounds or lacerations. Patient has increased pain with ambulation - Related Data Home Medications Medication Instructions Recorded Confirmed Allopurinol [Zyloprim] 300 mg PO DAILY 06/07/14 04/04/17 Aspirin 325 mg PO DAILY 06/07/14 04/04/17 Insulin NPH Hum/Reg Insulin Hm 10 unit SQ AC-SUPPER 06/07/14 04/04/17 [NovoLIN 70-30 100 UNIT/ML VIAL] Insulin NPH Hum/Reg Insulin Hm 20 unit SQ AC-BRKFST 06/07/14 04/04/17 [NovoLIN 70-30 100 UNIT/ML VIAL] Isosorbide Mononitrate [Imdur] 30 mg PO DAILY 06/07/14 04/04/17 metFORMIN HCL 1,000 mg PO BID 06/07/14 04/04/17 Ergocalciferol [Vitamin D2 50,000 unit PO Q14D 03/07/16 04/04/17 (DRISDOL)] Ferrous Sulfate [Iron (65 MG 325 mg PO DAILY 03/07/16 04/04/17 Elemental)] Previous Rx's Medication Instructions Recorded Spironolactone [Aldactone] 25 mg PO DAILY #30 tab 03/09/16 Atorvastatin [Lipitor] 80 mg PO HS #30 tab 02/11/17 Carvedilol [Coreg*] 12.5 mg PO BID-W/MEALS #60 tab 02/11/17 Clopidogrel [Plavix] 75 mg PO DAILY #30 tab 02/11/17 Nitroglycerin Sl Tabs [Nitrostat] 0.4 mg SUBLINGUAL Q5M PRN #50 tab 02/11/17 Allergies Allergy/AdvReac Type Severity Reaction Status Date / Time No Known Allergies Allergy Verified 04/04/17 12:59 Review of Systems ROS Statement: Those systems with pertinent positive or pertinent negative responses have been documented in the HPI. ROS Other: All systems not noted in ROS Statement are negative. Past Medical History Past Medical History: Diabetes Mellitus, GERD/Reflux, Hyperlipidemia, Musculoskeletal Disorder Additional Past Medical History / Comment(s): SEE H & P FOR CARDIAC HX Last Myocardial Infarction Date:: 2001 History of Any Multi-Drug Resistant Organisms: None Reported Past Surgical History: Heart Catheterization, Heart Catheterization With Stent, Joint Replacement, Orthopedic Surgery Additional Past Surgical History / Comment(s): BILAT TOTAL KNEE REPLACEMENT, RT KNEE SCOPE, BILAT CTR, (R) shoulder surgery. Past Anesthesia/Blood Transfusion Reactions: No Reported Reaction Date of Last Stent Placement:: 2001 Past Psychological History: No Psychological Hx Reported Smoking Status: Former smoker Past Alcohol Use History: None Reported Past Drug Use History: None Reported - Past Family History Father History Unknown: Yes Mother History Unknown: Yes Additional Family Medical History / Comment(s): pt states she is and he does not know history General Exam Limitations: no limitations General appearance: alert, in no apparent distress Head exam: Present: atraumatic, normocephalic, normal inspection Respiratory exam: Present: normal lung sounds bilaterally. Absent: respiratory distress, wheezes, rales, rhonchi, stridor Cardiovascular Exam: Present: regular rate, normal rhythm, normal heart sounds. Absent: systolic murmur, diastolic murmur, rubs, gallop, clicks Extremities exam: Present: other (Right foot there is some ecchymosis noted on MCP of the fifth digit, times with palpation neurovascular intact Refill less than 2 seconds there is no proximal foot tenderness there is no metatarsal tenderness noted) Skin exam: Present: warm, dry Course Vital Signs 04/04/17 12:55 Temperature 97.5 F L Pulse Rate 71 Respiratory 18 Rate Blood Pressure 131/61 O2 Sat by Pulse 97 Oximetry Medical Decision Making - Medical Decision Making 71-year-old male presented for right foot injury. Patient has a right fifth digit toe fracture. Patient will be discharged with a postop shoe. Return parameters were discussed. Disposition Clinical Impression: Toe fracture, right Disposition: HOME SELF-CARE Condition: Stable Instructions: Toe Fracture (ED) Additional Instructions: Please return to the Emergency Department if symptoms worsen or any other concerns. Time of Disposition: 13:42
--- NOTE | 2017-04-04 13:43 | XR ---
EXAMINATION TYPE: XR foot complete RT DATE OF EXAM ORDERED: 04/04/2017 1:37 PM HISTORY: Pain. FINDINGS: There is a minimally displaced, intra-articular fracture of the base of the proximal phalan x of the right fifth digit. There are degenerative changes in the right first MTP joint. There is a t iny plantar calcaneal spur.. IMPRESSION: 1. UNDISPLACED FRACTURE OF THE MEDIAL EPIPHYSIS OF THE PROXIMAL PHALANX OF THE RIGHT FIFTH DIGIT. 2. DEGENERATIVE CHANGE, RIGHT FIRST MTP JOINT. 3. TINY, PLANTAR CALCANEAL SPUR.
== END 2017-04-04 13:53 | disposition home or self-care (01) ==
LOC: EC 11:53
DX: S92.511A Displaced fracture of proximal phalanx of right lesser toe(s), initial encounter for closed fracture (principal); E11.9 Type 2 diabetes mellitus without complications; Z87.891 Personal history of nicotine dependence; Z79.82 Long term (current) use of aspirin; Z79.4 Long term (current) use of insulin; Z79.899 Other long term (current) drug therapy; W22.03XA Walked into furniture, initial encounter
CPT/HCPCS: 99283

== ENCOUNTER 2017-07-21 10:45 | Inpatient (IN) | payer MEDICARE ==
[2017-07-21] MEDS ORDERED: ACETAMINOPHEN IV (For NPO) 1,000 MG in EMPTY BAG 1 BAG IVPB STA (11:04)
[2017-07-21] MEDS ORDERED: IPRATROPIUM-ALBUTEROL 3 ML NEB INHALATION STA (11:04)
[2017-07-21] MEDS ORDERED: AZITHROMYCIN 500 MG in SODIUM CHLORIDE 0.9% 250 ML IVPB STA (11:04)
[2017-07-21] MEDS ORDERED: KETOROLAC 30 MG/ML 1 ML VIAL IVP STA (11:04)
[2017-07-21] MEDS ORDERED: SODIUM CHLORIDE 0.9% 1,000 ML IV STA ×2 (11:04)
--- NOTE | 2017-07-21 11:06 | ED ---
General Adult HPI - General Chief complaint: Chest Pain Stated complaint: chest pain Time Seen by Provider: 07/21/17 11:04 Source: patient, RN notes reviewed, old records reviewed Mode of arrival: wheelchair Limitations: no limitations - History of Present Illness Initial comments: This is a 71-year-old mallear for evaluation. Patient presents today for evaluation for shortness of breath and chest pain. Cough and congestion. Fever. No travel history, no sick contacts, no recent hospitalizations - Related Data Home Medications Medication Instructions Recorded Confirmed Allopurinol [Zyloprim] 300 mg PO DAILY 06/07/14 07/21/17 Aspirin 325 mg PO DAILY 06/07/14 07/21/17 Insulin NPH Hum/Reg Insulin Hm 10 unit SQ AC-SUPPER 06/07/14 07/21/17 [NovoLIN 70-30 100 UNIT/ML VIAL] Insulin NPH Hum/Reg Insulin Hm 20 unit SQ AC-BRKFST 06/07/14 07/21/17 [NovoLIN 70-30 100 UNIT/ML VIAL] Isosorbide Mononitrate [Imdur] 30 mg PO DAILY 06/07/14 07/21/17 metFORMIN HCL 1,000 mg PO BID 06/07/14 07/21/17 Ergocalciferol [Vitamin D2 50,000 unit PO Q14D 03/07/16 07/21/17 (DRISDOL)] Ferrous Sulfate [Iron (65 MG 325 mg PO DAILY 03/07/16 07/21/17 Elemental)] Atorvastatin [Lipitor] 20 mg PO HS 07/21/17 07/21/17 Carvedilol [Coreg] 12.5 mg PO BID 07/21/17 07/21/17 Fish Oil/Dha/Epa [Fish Oil 1,200 1 cap PO DAILY 07/21/17 07/21/17 mg Fish Oil] Previous Rx's Medication Instructions Recorded Spironolactone [Aldactone] 25 mg PO DAILY #30 tab 03/09/16 Clopidogrel [Plavix] 75 mg PO DAILY #30 tab 02/11/17 Nitroglycerin Sl Tabs [Nitrostat] 0.4 mg SUBLINGUAL Q5M PRN #50 tab 02/11/17 Allergies Allergy/AdvReac Type Severity Reaction Status Date / Time No Known Allergies Allergy Verified 07/21/17 11:38 Review of Systems ROS Statement: Those systems with pertinent positive or pertinent negative responses have been documented in the HPI. ROS Other: All systems not noted in ROS Statement are negative. Past Medical History Past Medical History: Diabetes Mellitus, GERD/Reflux, Hyperlipidemia, Musculoskeletal Disorder Additional Past Medical History / Comment(s): SEE H & P FOR CARDIAC HX Last Myocardial Infarction Date:: 2001 History of Any Multi-Drug Resistant Organisms: None Reported Past Surgical History: Heart Catheterization, Heart Catheterization With Stent, Joint Replacement, Orthopedic Surgery Additional Past Surgical History / Comment(s): BILAT TOTAL KNEE REPLACEMENT, RT KNEE SCOPE, BILAT CTR, (R) shoulder surgery. Past Anesthesia/Blood Transfusion Reactions: No Reported Reaction Date of Last Stent Placement:: 2001 Past Psychological History: No Psychological Hx Reported Smoking Status: Former smoker Past Alcohol Use History: None Reported Past Drug Use History: None Reported - Past Family History Father History Unknown: Yes Mother History Unknown: Yes Additional Family Medical History / Comment(s): pt states she is and he does not know history General Exam Limitations: no limitations General appearance: alert, in no apparent distress, anxious Head exam: Present: atraumatic, normocephalic, normal inspection Eye exam: Present: normal appearance, PERRL, EOMI. Absent: scleral icterus, conjunctival injection, periorbital swelling ENT exam: Present: normal exam, mucous membranes moist Neck exam: Present: normal inspection. Absent: tenderness, meningismus, lymphadenopathy Respiratory exam: Present: normal lung sounds bilaterally, wheezes, accessory muscle use, decreased breath sounds, prolonged expiratory. Absent: respiratory distress, rales, rhonchi, stridor Cardiovascular Exam: Present: regular rate, normal rhythm, normal heart sounds. Absent: systolic murmur, diastolic murmur, rubs, gallop, clicks GI/Abdominal exam: Present: soft, normal bowel sounds. Absent: distended, tenderness, guarding, rebound, rigid Extremities exam: Present: normal inspection, full ROM, normal capillary refill. Absent: tenderness, pedal edema, joint swelling, calf tenderness Back exam: Present: normal inspection Neurological exam: Present: alert, oriented X3, CN II-XII intact Psychiatric exam: Present: normal affect, normal mood Skin exam: Present: warm, dry, intact, normal color. Absent: rash Course Vital Signs 07/21/17 07/21/17 07/21/17 10:47 11:50 12:09 Temperature 100.7 F H Pulse Rate 93 111 H 119 H Respiratory 20 Rate Blood Pressure 138/86 O2 Sat by Pulse 97 Oximetry 07/21/17 12:11 Temperature 99.2 F Pulse Rate 81 Respiratory 18 Rate Blood Pressure 106/50 O2 Sat by Pulse 97 Oximetry - Reevaluation(s) Reevaluation #1: 07/21/17 12:39 Patient with mild improvement after prolonged breathing treatment EKG Findings - EKG Comments: EKG Findings:: EKG shows normal sinus rhythm rate 87, NM 154, QRS 136, QTC or 66 Medical Decision Making - Medical Decision Making 6 Imad ER for stress with cough congestion chest pain and fever. Patient has positive pneumonia by symptoms, also has exacerbation of COPD. Worsening bronchitis. Facial be admitted for IV antibiotics. Treatments and steroids - Lab Data Result diagrams: 07/21/17 11:08 07/21/17 11:08 Lab Results 07/21/17 07/21/17 07/21/17 Range/Units 11:08 11:08 11:08 WBC 5.9 (3.8-10.6) k/uL RBC 4.21 L (4.30-5.90) m/uL Hgb 14.0 (13.0-17.5) gm/dL Hct 42.2 (39.0-53.0) % MCV 100.3 H (80.0-100.0) fL MCH 33.2 (25.0-35.0) pg MCHC 33.1 (31.0-37.0) g/dL RDW 14.8 (11.5-15.5) % Plt Count 82 L (150-450) k/uL Neutrophils % 77 % Lymphocytes % 15 % Monocytes % 6 % Eosinophils % 1 % Basophils % 0 % Neutrophils # 4.5 (1.3-7.7) k/uL Lymphocytes # 0.9 L (1.0-4.8) k/uL Monocytes # 0.3 (0-1.0) k/uL Eosinophils # 0.1 (0-0.7) k/uL Basophils # 0.0 (0-0.2) k/uL Anisocytosis (manual) Present Macrocytosis Slight PT (9.0-12.0) sec INR (<1.2) APTT (22.0-30.0) sec Sodium 140 (137-145) mmol/L Potassium 4.1 (3.5-5.1) mmol/L Chloride 105 (98-107) mmol/L Carbon Dioxide 22 (22-30) mmol/L Anion Gap 13 mmol/L BUN 10 (9-20) mg/dL Creatinine 0.70 (0.66-1.25) mg/dL Est GFR (MDRD) Af Amer >60 (>60 ml/min/1.73 sqM) Est GFR (MDRD) Non-Af >60 (>60 ml/min/1.73 sqM) Glucose 161 H (74-99) mg/dL Calcium 9.4 (8.4-10.2) mg/dL Magnesium 1.6 (1.6-2.3) mg/dL Total Bilirubin 1.4 H (0.2-1.3) mg/dL AST 36 (17-59) U/L ALT 42 (21-72) U/L Alkaline Phosphatase 77 (38-126) U/L Total Creatine Kinase 35 L (55-170) U/L CK-MB (CK-2) 1.2 (0.0-2.4) ng/mL CK-MB (CK-2) Rel Index 3.4 Troponin I <0.012 (0.000-0.034) ng/mL NT-Pro-B Natriuret Pep pg/mL Total Protein 7.2 (6.3-8.2) g/dL Albumin 4.4 (3.5-5.0) g/dL 07/21/17 07/21/17 Range/Units 11:08 11:08 WBC (3.8-10.6) k/uL RBC (4.30-5.90) m/uL Hgb (13.0-17.5) gm/dL Hct (39.0-53.0) % MCV (80.0-100.0) fL MCH (25.0-35.0) pg MCHC (31.0-37.0) g/dL RDW (11.5-15.5) % Plt Count (150-450) k/uL Neutrophils % % Lymphocytes % % Monocytes % % Eosinophils % % Basophils % % Neutrophils # (1.3-7.7) k/uL Lymphocytes # (1.0-4.8) k/uL Monocytes # (0-1.0) k/uL Eosinophils # (0-0.7) k/uL Basophils # (0-0.2) k/uL Anisocytosis (manual) Macrocytosis PT 11.3 (9.0-12.0) sec INR 1.1 (<1.2) APTT 23.0 (22.0-30.0) sec Sodium (137-145) mmol/L Potassium (3.5-5.1) mmol/L Chloride (98-107) mmol/L Carbon Dioxide (22-30) mmol/L Anion Gap mmol/L BUN (9-20) mg/dL Creatinine (0.66-1.25) mg/dL Est GFR (MDRD) Af Amer (>60 ml/min/1.73 sqM) Est GFR (MDRD) Non-Af (>60 ml/min/1.73 sqM) Glucose (74-99) mg/dL Calcium (8.4-10.2) mg/dL Magnesium (1.6-2.3) mg/dL Total Bilirubin (0.2-1.3) mg/dL AST (17-59) U/L ALT (21-72) U/L Alkaline Phosphatase (38-126) U/L Total Creatine Kinase (55-170) U/L CK-MB (CK-2) (0.0-2.4) ng/mL CK-MB (CK-2) Rel Index Troponin I (0.000-0.034) ng/mL NT-Pro-B Natriuret Pep 145 pg/mL Total Protein (6.3-8.2) g/dL Albumin (3.5-5.0) g/dL - Radiology Data Radiology results: report reviewed (Chest x-ray shows significant COPD likely pneumonia), image reviewed Disposition Clinical Impression: Community acquired pneumonia Disposition: ADMITTED IP TO THIS HOSP Condition: Fair Referrals: Carrie Izaguirre MD [Primary Care Provider] - 1-2 days
[2017-07-21 11:31] LABS: Basophils % (A) 0 %; CH 34.5; CHCM 34.6; Eosinophils # (A) 0.1 k/uL (0-0.7); Eosinophils % (A) 1 %; HCT 42.2 % (39.0-53.0); HDW 3.06; Luc # (Auto) 0.08; Luc % (Auto) 1; Lymphocytes # (A) 0.9 k/uL (1.0-4.8); Lymphocytes % (A) 15 %; MCH 33.2 pg (25.0-35.0); MCHC 33.1 g/dL (31.0-37.0); MCV 100.3 fL (80.0-100.0); Macrocytosis Slight; Mean Platelet Volume 7.4; Monocytes # (A) 0.3 k/uL (0-1.0); Monocytes % (A) 6 %; Neutrophils # (A) 4.5 k/uL (1.3-7.7); Neutrophils % (A) 77 %; RBC 4.21 m/uL (4.30-5.90); RDW 14.8 % (11.5-15.5); WBC 5.9 k/uL (3.8-10.6); WBC (Perox) 5.96
[2017-07-21 11:33] LABS: ALT 42 U/L (21-72); AST 36 U/L (17-59); Alkaline Phosphatase 77 U/L (38-126); Anion Gap 13 mmol/L; Blood Urea Nitrogen 10 mg/dL (9-20); Calcium 9.4 mg/dL (8.4-10.2); Carbon Dioxide 22 mmol/L (22-30); Chloride 105 mmol/L (98-107); Glucose 161 mg/dL (74-99); Magnesium 1.6 mg/dL (1.6-2.3); Non-African American GFR(MDRD) >60 (>60 ml/min/1.73 sqM); Potassium 4.1 mmol/L (3.5-5.1); Sodium 140 mmol/L (137-145); Total Bilirubin 1.4 mg/dL (0.2-1.3); Total Protein 7.2 g/dL (6.3-8.2)
[2017-07-21 11:37] LABS: INR 1.1 (<1.2); Prothrombin Time 11.3 sec (9.0-12.0)
--- NOTE | 2017-07-21 11:47 | XR ---
EXAMINATION TYPE: XR chest 2V DATE OF EXAM: 07/21/2017 COMPARISON: 02/09/2017 TECHNIQUE: PA and lateral views submitted. HISTORY: Shortness of breath FINDINGS: The lungs are clear and there is no pneumothorax, pleural effusion, or focal pneumonia. Hyperinflat ion noted. Degenerative change of the spine. Postsurgical change involving the shoulders. Biapical pl eural thickening. No overt failure. Heart mildly prominent and atherosclerotic change aorta. IMPRESSION: 1. Correlate for COPD.
[2017-07-21 11:53] LABS: Creatine Kinase 35 U/L (55-170)
[2017-07-21 12:05] LABS: Creatine Kinase MB 1.2 ng/mL (0.0-2.4); Troponin I <0.012 ng/mL (0.000-0.034)
[2017-07-21] MEDS ORDERED: PNEUMONIA PROTOCOL UTILIZED 1 EACH MISC PO PRN (12:36)
[2017-07-21] MEDS ORDERED: IBUPROFEN 400 MG TAB PO PRN (12:40)
[2017-07-21] MEDS ORDERED: ACETAMINOPHEN TAB 325 MG TAB PO PRN (12:40)
[2017-07-21] MEDS: SODIUM CHLORIDE 0.9% 1,000 ML IV SCH ×2 (13:25→23:01)
[2017-07-21] MEDS: IPRATROPIUM-ALBUTEROL 3 ML NEB INHALATION SCH ×2 (16:50→20:04)
[2017-07-21 16:58] LABS: Glucose,Whole Blood 99 mg/dL (75-99)
[2017-07-21] MEDS: INSULIN NPH/REG INSULIN 70/30 300 UNIT/3 ML VIAL SQ SCH (17:05)
[2017-07-21] MEDS: CARVEDILOL 12.5 MG TAB PO SCH (17:06)
[2017-07-21] MEDS: methylPREDNISolone SOD SUCCI 125 MG/2 ML VIAL IV SCH ×2 (17:10→23:01)
[2017-07-21] MEDS: INSULIN LISPRO (humaLOG) 300 UNIT/3 ML VIAL SQ SCH ×2 (17:17→20:57)
[2017-07-21] MEDS: ATORVASTATIN 20 MG TAB PO SCH (20:11)
[2017-07-21] MEDS: metFORMIN 500 MG TAB PO SCH (20:11)
[2017-07-21 20:28] LABS: Glucose,Whole Blood 205 mg/dL (75-99)
[2017-07-21] MEDS ORDERED: RX INFO: IV CONTRAST WAS GIVEN 1 EACH MISC MISCELLANE PRN (20:52)
--- NOTE | 2017-07-21 21:43 | CT ---
EXAMINATION TYPE: CT chest w con DATE OF EXAM: 07/21/2017 COMPARISON: NONE HISTORY: DYSPNEA. CT DLP: 656.1 mGycm Automated exposure control for dose reduction was used. CONTRAST: CT scan of the chest is performed with IV Contrast, patient injected with 90 mL of Omnipaque 300. FINDINGS: The lungs are clear of consolidation. There is no evidence of a pulmonary mass. There is no pleural e ffusion. Heart is slightly enlarged. Thoracic aorta is atheromatous. There is no sign of aneurysm or dissection. There is no mediastinal adenopathy. There are no hilar masses. I see no filling defects i n the pulmonary arteries. There is coronary artery calcification. IMPRESSION: Cardiomegaly. Atherosclerotic vascular disease.
[2017-07-22] MEDS: methylPREDNISolone SOD SUCCI 125 MG/2 ML VIAL IV SCH (06:27)
[2017-07-22 07:35] LABS: Glucose,Whole Blood 190 mg/dL (75-99)
[2017-07-22] MEDS: IPRATROPIUM-ALBUTEROL 3 ML NEB INHALATION SCH ×4 (08:02→20:44)
[2017-07-22 08:35] LABS: Basophils % (A) 0 %; CH 34.4; CHCM 33.9; Eosinophils % (A) 0 %; HCT 42.8 % (39.0-53.0); HDW 3.06; HGB 14.2 gm/dL (13.0-17.5); Luc # (Auto) 0.02; Luc % (Auto) 0; Lymphocytes # (A) 0.7 k/uL (1.0-4.8); Lymphocytes % (A) 9 %; MCH 33.8 pg (25.0-35.0); MCHC 33.1 g/dL (31.0-37.0); MCV 102.1 fL (80.0-100.0); Macrocytosis Slight; Mean Platelet Volume 7.7; Monocytes # (A) 0.1 k/uL (0-1.0); Monocytes % (A) 1 %; Neutrophils # (A) 7.4 k/uL (1.3-7.7); Neutrophils % (A) 90 %; RBC 4.19 m/uL (4.30-5.90); RDW 14.6 % (11.5-15.5); WBC 8.3 k/uL (3.8-10.6); WBC (Perox) 8.35
[2017-07-22] MEDS: CARVEDILOL 12.5 MG TAB PO SCH ×2 (08:36→16:44)
[2017-07-22] MEDS: INSULIN LISPRO (humaLOG) 300 UNIT/3 ML VIAL SQ SCH ×4 (08:36→20:54)
[2017-07-22] MEDS: ALLOPURINOL 300 MG TAB PO SCH (08:37)
[2017-07-22] MEDS: SODIUM CHLORIDE 0.9% 1,000 ML IV SCH ×2 (08:37→17:42)
[2017-07-22] MEDS: ASPIRIN 325 MG TAB PO SCH (08:37)
[2017-07-22] MEDS: FERROUS SULFATE 325 MG TAB PO SCH (08:38)
[2017-07-22] MEDS: CLOPIDOGREL 75 MG TAB PO SCH (08:38)
[2017-07-22] MEDS: ENOXAPARIN 40 MG/0.4 ML SYRINGE SQ SCH (08:38)
[2017-07-22] MEDS: ISOSORBIDE MONONITRATE ER 30 MG TAB.ER.24H PO SCH (08:39)
[2017-07-22] MEDS: SPIRONOLACTONE 25 MG TAB PO SCH (08:39)
[2017-07-22] MEDS: metFORMIN 500 MG TAB PO SCH ×2 (08:39→20:55)
[2017-07-22 08:47] LABS: ALT 50 U/L (21-72); AST 49 U/L (17-59); Alkaline Phosphatase 90 U/L (38-126); Anion Gap 15 mmol/L; Blood Urea Nitrogen 13 mg/dL (9-20); Calcium 9.5 mg/dL (8.4-10.2); Carbon Dioxide 21 mmol/L (22-30); Chloride 105 mmol/L (98-107); Glucose 189 mg/dL (74-99); Non-African American GFR(MDRD) >60 (>60 ml/min/1.73 sqM); Potassium 4.5 mmol/L (3.5-5.1); Sodium 141 mmol/L (137-145); Total Protein 7.6 g/dL (6.3-8.2)
[2017-07-22] MEDS: INSULIN NPH/REG INSULIN 70/30 300 UNIT/3 ML VIAL SQ SCH ×2 (09:42→17:37)
[2017-07-22] MEDS: PROMETHAZ-COD 6.25-10 MG/5 ML 5 ML CUP PO PRN ×2 (09:42→17:35)
--- NOTE | 2017-07-22 10:18 | HP ---
CHIEF COMPLAINT: A 71-year-old white male who presents with cough, congestion, and shortness of breath. HISTORY OF PRESENT ILLNESS: A 71-year-old white male with cough, congestion and shortness of breath and fever. He is admitted to the hospital due to shortness of breath and dyspnea. HOME MEDICATIONS INCLUDE: 1. Gout medicine Zyloprim 300 mg daily. 2. Aspirin 325 daily. 3. Insulin dependent diabetes mellitus, he is on NPH 20 in the morning, 10 at night. 4. Imdur 30 daily. 5. Metformin 1000 b.i.d. 6. Vitamin D 50,000 units weekly. 7. Iron 65 mg daily. 8. Lipitor 20 daily. 9. Coreg 12.5 b.i.d. 10. Fish oil daily. ALLERGIES: Negative. REVIEW OF SYSTEMS: A 14-point review of systems negative except for mentioned in HPI. PAST MEDICAL HISTORY: Diabetes mellitus, GERD, reflux, dyslipidemia, musculoskeletal disorder. SURGICAL HISTORY: Heart catheterization, stent replacement, orthopedic surgery , bilateral total knee replacement, right knee scope, bilateral CTR, right shoulder surgery. SOCIAL HISTORY: Former smoker, no alcohol, no illicit drugs. FAMILY HISTORY: Father and mother, not sure what their history. PHYSICAL EXAM: Temperature is 100.7, pulse is 93 to 111, respiratory rate 18 to 22, blood pressure 130s/80s, O2 is 97% on room air. CARDIOVASCULAR: S1, S2. Lungs show scattered rhonchi and wheeze. He has congestive cough, large amount of coughing. OPHTHALMOLOGIC: Pupils equal, round and reactive to light and accommodation. ENDOCRINE: BMI is over 40. EXTREMITIES: No pedal edema, joints ( ). NEUROLOGIC: Alert and oriented x3. PSYCH: Fair mood and affect. SKIN: Warm, dry, intact. EKG shows sinus rhythm. ( ) some kind of test that show positive for pneumonia and COPD, possible bronchitis. He is admitted with IV steroids, updraft treatments, get Pulmonary consult. He is thrombocytopenia, unclear etiology, obesity, insulin-dependent diabetes mellitus, hypertension, coronary artery disease. Negative troponin, normal protein. ASSESSMENT: 1. ( ) pneumonia. 2. Hypoxemic respiratory failure. 3. Obesity. Continue current treatments with IV antibiotics, steroids, updraft treatments. A CAT scan of the chest will be done. [facility]
--- NOTE | 2017-07-22 11:29 | XR ---
EXAMINATION TYPE: XR chest 2V DATE OF EXAM: 07/22/2017 COMPARISON: NONE TECHNIQUE: PA and lateral views submitted. HISTORY: cough/sorethroat FINDINGS: The lungs are clear and there is no pneumothorax, pleural effusion, or focal pneumonia. Postsurgical change involving the shoulders. Heart is mildly prominent. No overt failure. Degenerative change of the spine. Hyperinflation suggests COPD. IMPRESSION: 1. No acute process.
[2017-07-22] MEDS ORDERED: AZITHROMYCIN 500 MG in SODIUM CHLORIDE 0.9% 250 ML IVPB SCH (12:00)
[2017-07-22 12:01] LABS: Glucose,Whole Blood 223 mg/dL (75-99)
[2017-07-22 12:04] LABS: Hemoglobin A1C 5.9 % (4.2-6.1)
[2017-07-22] MEDS: methylPREDNISolone SOD SUCCI 40 MG/ML 1 ML VIAL IV SCH (16:45)
[2017-07-22 17:38] LABS: Glucose,Whole Blood 154 mg/dL (75-99)
[2017-07-22 20:56] LABS: Glucose,Whole Blood 204 mg/dL (75-99)
[2017-07-22] MEDS: ATORVASTATIN 20 MG TAB PO SCH (21:41)
[2017-07-23] MEDS: methylPREDNISolone SOD SUCCI 125 MG/2 ML VIAL IV SCH ×2 (00:03)
[2017-07-23] MEDS: methylPREDNISolone SOD SUCCI 40 MG/ML 1 ML VIAL IV SCH ×4 (00:05→23:22)
[2017-07-23] MEDS: SODIUM CHLORIDE 0.9% 1,000 ML IV SCH ×2 (05:33→16:41)
[2017-07-23] MEDS: IPRATROPIUM-ALBUTEROL 3 ML NEB INHALATION SCH ×4 (07:35→20:09)
[2017-07-23 07:37] LABS: Glucose,Whole Blood 158 mg/dL (75-99)
[2017-07-23] MEDS: INSULIN NPH/REG INSULIN 70/30 300 UNIT/3 ML VIAL SQ SCH ×2 (08:00→18:22)
[2017-07-23] MEDS: CARVEDILOL 12.5 MG TAB PO SCH ×2 (08:00→16:42)
[2017-07-23] MEDS: INSULIN LISPRO (humaLOG) 300 UNIT/3 ML VIAL SQ SCH ×4 (08:00→21:30)
[2017-07-23] MEDS: ALLOPURINOL 300 MG TAB PO SCH (08:01)
[2017-07-23] MEDS: CLOPIDOGREL 75 MG TAB PO SCH (08:02)
[2017-07-23] MEDS: ASPIRIN 325 MG TAB PO SCH (08:02)
[2017-07-23] MEDS: ENOXAPARIN 40 MG/0.4 ML SYRINGE SQ SCH (08:02)
[2017-07-23] MEDS: ISOSORBIDE MONONITRATE ER 30 MG TAB.ER.24H PO SCH (08:03)
[2017-07-23] MEDS: metFORMIN 500 MG TAB PO SCH ×2 (08:03→21:31)
[2017-07-23] MEDS: SPIRONOLACTONE 25 MG TAB PO SCH (08:03)
[2017-07-23] MEDS: FERROUS SULFATE 325 MG TAB PO SCH (08:03)
[2017-07-23] MEDS: PROMETHAZ-COD 6.25-10 MG/5 ML 5 ML CUP PO PRN (08:14)
[2017-07-23] MEDS: AZITHROMYCIN 500 MG TAB PO SCH (12:39)
[2017-07-23 14:08] LABS: Glucose,Whole Blood 148 mg/dL (75-99)
[2017-07-23 17:58] LABS: Glucose,Whole Blood 148 mg/dL (75-99)
[2017-07-23] MEDS: ATORVASTATIN 20 MG TAB PO SCH (19:56)
[2017-07-23 21:08] LABS: Glucose,Whole Blood 182 mg/dL (75-99)
[2017-07-24] MEDS: SODIUM CHLORIDE 0.9% 1,000 ML IV SCH ×2 (00:38→10:46)
[2017-07-24 07:55] LABS: Glucose,Whole Blood 160 mg/dL (75-99)
[2017-07-24 08:11] VITALS: BP 132/74; TEMP 97.3
[2017-07-24] MEDS: IPRATROPIUM-ALBUTEROL 3 ML NEB INHALATION SCH ×3 (08:20→15:50)
[2017-07-24 08:23] VITALS: RESP 14
[2017-07-24] MEDS: methylPREDNISolone SOD SUCCI 40 MG/ML 1 ML VIAL IV SCH (08:25)
[2017-07-24] MEDS: INSULIN LISPRO (humaLOG) 300 UNIT/3 ML VIAL SQ SCH ×2 (08:25→12:04)
[2017-07-24] MEDS: INSULIN NPH/REG INSULIN 70/30 300 UNIT/3 ML VIAL SQ SCH (08:26)
[2017-07-24] MEDS: ENOXAPARIN 40 MG/0.4 ML SYRINGE SQ SCH (08:26)
[2017-07-24] MEDS: CARVEDILOL 12.5 MG TAB PO SCH (08:26)
[2017-07-24] MEDS: metFORMIN 500 MG TAB PO SCH (08:28)
[2017-07-24] MEDS: SPIRONOLACTONE 25 MG TAB PO SCH (08:29)
[2017-07-24] MEDS: ALLOPURINOL 300 MG TAB PO SCH (08:29)
[2017-07-24] MEDS: ISOSORBIDE MONONITRATE ER 30 MG TAB.ER.24H PO SCH (08:29)
[2017-07-24] MEDS: CLOPIDOGREL 75 MG TAB PO SCH (08:29)
[2017-07-24] MEDS: ASPIRIN 325 MG TAB PO SCH (08:29)
[2017-07-24] MEDS: FERROUS SULFATE 325 MG TAB PO SCH (08:30)
[2017-07-24] MEDS: PROMETHAZ-COD 6.25-10 MG/5 ML 5 ML CUP PO PRN (08:38)
--- NOTE | 2017-07-24 09:10 | XR ---
EXAMINATION TYPE: XR chest 2V DATE OF EXAM: 07/24/2017 HISTORY: follow up pna. REFERENCE: Previous study dated 07/22/2017. FINDINGS: There is a right shoulder arthroplasty in place. There has been a previous rotator cuff rep air on the left. Lung volumes are prominent. Heart size is upper limits of normal. There is some atelectatic change pr esent at both lung bases. There is blunting of the left CP angle. I could not exclude a small left ef fusion. IMPRESSION: 1. COPD. 2. BORDERLINE CARDIOMEGALY. 3. BIBASILAR ATELECTATIC CHANGE. 4. I CANNOT EXCLUDE A SMALL LEFT EFFUSION.
--- NOTE | 2017-07-24 09:51 | PN ---
SUBJECTIVE: 71 year old white male, PNA, fever, history of COPD exacerbations. CT scan of the chest shows no infiltrate is seen. He will be started on IV steroids, updrafts with DuoNeb. Cardiovascular: S1, S2. Lungs scattered wheeze. Hematological negative Homans. Psych: Fair mood and affect. ASSESSMENT: 1. Chronic obstructive disease exacerbation. 2. PNA. 3. Fever. 4. Acute hypoxic respiratory distress. Continue on the current treatment in the next 24 to 48 hours. MTDD
[2017-07-24 11:40] VITALS: PULSE 76
[2017-07-24 12:02] LABS: Glucose,Whole Blood 113 mg/dL (75-99)
[2017-07-24] MEDS: AZITHROMYCIN 500 MG TAB PO SCH (12:05)
--- NOTE | 2017-07-24 13:43 | P.DS ---
Providers Date of admission: 07/21/17 12:36 Expected date of discharge: 07/24/17 Attending physician: Edward Gibson Primary care physician: [facility] Course: A 71-year-old male who presented to the emergency room on 07/21/2017 with shortness of breath and cough. He has a history of diabetes mellitus, GERD, dyslipidemia, and COPD. He is a former smoker. Patient was started on IV antibiotics, steroids, and updraft treatments. A CT of the chest was completed and did not show any infiltrates. It appears to be more of an acute exacerbation of COPD versus pneumonia. During the hospitalization this patient was seen solely by Dr. Gibson. The nurse practitioner was not involved in the care of this patient and was given a verbal order to discharge the patient. Discharge diagnosis: 1. History of COPD with acute exacerbation 2. History of diabetes mellitus, type 2 3. History of dyslipidemia 4. History of GERD 5. Shortness of breath, related to COPD, improved at time of discharge 6. Cough, related to COPD, improved at time of discharge The above impression and plan of care have been discussed and directed by signing physician. Jayne Boles, nurse practitioner, acting as scribe for signing physician. Patient Condition at Discharge: Stable Plan - Discharge Summary New Discharge Prescriptions: No Action metFORMIN HCL 1,000 mg PO BID Isosorbide Mononitrate [Imdur] 30 mg PO DAILY Aspirin 325 mg PO DAILY Allopurinol [Zyloprim] 300 mg PO DAILY Insulin NPH Hum/Reg Insulin Hm [NovoLIN 70-30 100 UNIT/ML VIAL] 20 unit SQ AC -BRKFST Insulin NPH Hum/Reg Insulin Hm [NovoLIN 70-30 100 UNIT/ML VIAL] 10 unit SQ AC -SUPPER Ferrous Sulfate [Iron (65 MG Elemental)] 325 mg PO DAILY Ergocalciferol [Vitamin D2 (DRISDOL)] 50,000 unit PO Q14D Spironolactone [Aldactone] 25 mg PO DAILY #30 tab Clopidogrel [Plavix] 75 mg PO DAILY #30 tab Nitroglycerin Sl Tabs [Nitrostat] 0.4 mg SUBLINGUAL Q5M PRN #50 tab PRN Reason: Chest Pain Carvedilol [Coreg] 12.5 mg PO BID Atorvastatin [Lipitor] 20 mg PO HS Fish Oil/Dha/Epa [Fish Oil 1,200 mg Fish Oil] 1 cap PO DAILY Discharge Medication List Allopurinol [Zyloprim] 300 mg PO DAILY 06/07/14 [History] Aspirin 325 mg PO DAILY 06/07/14 [History] Insulin NPH Hum/Reg Insulin Hm [NovoLIN 70-30 100 UNIT/ML VIAL] 10 unit SQ AC- SUPPER 06/07/14 [History] Insulin NPH Hum/Reg Insulin Hm [NovoLIN 70-30 100 UNIT/ML VIAL] 20 unit SQ AC- BRKFST 06/07/14 [History] Isosorbide Mononitrate [Imdur] 30 mg PO DAILY 06/07/14 [History] metFORMIN HCL 1,000 mg PO BID 06/07/14 [History] Ergocalciferol [Vitamin D2 (DRISDOL)] 50,000 unit PO Q14D 03/07/16 [History] Ferrous Sulfate [Iron (65 MG Elemental)] 325 mg PO DAILY 03/07/16 [History] Spironolactone [Aldactone] 25 mg PO DAILY #30 tab 03/09/16 [Rx] Clopidogrel [Plavix] 75 mg PO DAILY #30 tab 02/11/17 [Rx] Nitroglycerin Sl Tabs [Nitrostat] 0.4 mg SUBLINGUAL Q5M PRN #50 tab 02/11/17 [Rx ] Atorvastatin [Lipitor] 20 mg PO HS 07/21/17 [History] Carvedilol [Coreg] 12.5 mg PO BID 07/21/17 [History] Fish Oil/Dha/Epa [Fish Oil 1,200 mg Fish Oil] 1 cap PO DAILY 07/21/17 [History] Follow up Appointment(s)/Referral(s): Carrie Izaguirre MD [Primary Care Provider] - 1-2 days Discharge Disposition: HOME SELF-CARE
--- NOTE | 2017-07-24 17:54 | PN ---
PROGRESS NOTE Date of Service: SUBJECTIVE: 71-year-old, white male, admitted with pneumonia, fever COPD. He is on IV antibiotics. Steroids for COPD. Fever treated with IV antibiotics. Cardiovascular are S1, S2. Lungs scattered rhonchi and wheezes. Hematological: Negative Homans. GI: Distended, obese. ASSESSMENT: 1. Pneumonia. 2. Fever./. 3. Chronic obstructive pulmonary disease. 4. Tracheobronchitis. Possible discharge home. Wean down steroid taper. Wean antibiotics. Possible discharge home in the next 24 to 48 hours. MMODL / IJN: [id number] /
== END 2017-07-24 16:03 | disposition home or self-care (01) | DRG 190 ==
LOC: EC 10:45 → 4MS4W 12:36
PROVIDERS: ADMIT Family Medicine; ATTEND Family Medicine
DX: J44.0 Chronic obstructive pulmonary disease with (acute) lower respiratory infection (principal); J18.9 Pneumonia, unspecified organism; J44.1 Chronic obstructive pulmonary disease with (acute) exacerbation; E11.9 Type 2 diabetes mellitus without complications; E66.9 Obesity, unspecified; E78.5 Hyperlipidemia, unspecified; K21.9 Gastro-esophageal reflux disease without esophagitis; M10.9 Gout, unspecified; Z79.4 Long term (current) use of insulin; Z79.82 Long term (current) use of aspirin; Z79.02 Long term (current) use of antithrombotics/antiplatelets; Z79.899 Other long term (current) drug therapy; Z87.891 Personal history of nicotine dependence; Z96.653 Presence of artificial knee joint, bilateral; Z95.5 Presence of coronary angioplasty implant and graft
CPT/HCPCS: 36415; 71020; 71260; 80053; 82550; 82553; 83036; 83735; 83880; 84484; 84550; 85025; 85610; 85730; 87040; 93005; 94640; 94760; 96361; 96365; 96366; 96375; 99285

== ENCOUNTER 2018-01-13 00:39 | Observation (INO) | payer MEDICARE ==
[2018-01-13] MEDS ORDERED: MORPHINE SULFATE 4 MG/ML SYRINGE IVP STA (01:14)
[2018-01-13] MEDS ORDERED: ASPIRIN 81 MG PO STA (01:14)
--- NOTE | 2018-01-13 01:19 | ED ---
Chest Pain HPI - General Chief Complaint: Chest Pain Stated Complaint: CHEST PAIN Time Seen by Provider: 01/13/18 00:43 Source: patient, EMS Mode of arrival: EMS Limitations: no limitations - History of Present Illness Initial Comments: This patient is a 72-year-old man who states that as part of his nighttime routine in getting ready for bed he drank a small glass of quinine water, and then as he was getting ready for bed he noticed onset of substernal chest pain. He did try nitroglycerin for relief and found that the pain did not change. He describes the pain as mild to moderate, aching, constant. He did not notice any worsening or relieving factors. There was no radiation of the pain. There were no associated symptoms. MD Complaint: chest pain Onset/Timin -: hour(s) Onset: during rest Pain Location: substernal Pain Radiation: none Severity: moderate Quality: aching Consistency: constant Improves With: nothing Worsens With: nothing Treatments Prior to Arrival: nitroglycerin - Related Data Home Medications Medication Instructions Recorded Confirmed Allopurinol [Zyloprim] 300 mg PO DAILY 06/07/14 07/28/17 Aspirin 325 mg PO DAILY 06/07/14 07/28/17 Insulin NPH Hum/Reg Insulin Hm 10 unit SQ AC-SUPPER 06/07/14 07/28/17 [NovoLIN 70-30 100 UNIT/ML VIAL] Isosorbide Mononitrate [Imdur] 30 mg PO DAILY 06/07/14 07/28/17 metFORMIN HCL 1,000 mg PO BID 06/07/14 07/28/17 Ergocalciferol [Vitamin D2 50,000 unit PO Q14D 03/07/16 07/28/17 (DRISDOL)] Ferrous Sulfate [Iron (65 MG 325 mg PO DAILY 03/07/16 07/28/17 Elemental)] Atorvastatin [Lipitor] 20 mg PO HS 07/21/17 07/28/17 Carvedilol [Coreg] 12.5 mg PO BID 07/21/17 07/28/17 Fish Oil/Dha/Epa [Fish Oil 1,200 1 cap PO DAILY 07/21/17 07/28/17 mg Fish Oil] Previous Rx's Medication Instructions Recorded Spironolactone [Aldactone] 25 mg PO DAILY #30 tab 03/09/16 Clopidogrel [Plavix] 75 mg PO DAILY #30 tab 02/11/17 Nitroglycerin Sl Tabs [Nitrostat] 0.4 mg SUBLINGUAL Q5M PRN #50 tab 02/11/17 Amoxic-Pot Clav 875-125Mg 1 tab PO Q12HR #14 tablet 07/24/17 [Augmentin 875-125] methylPREDNISolone Dose Pack 4 mg PO DIRECTED #21 package 07/24/17 [Medrol Dose Pack] Insulin NPH Hum/Reg Insulin Hm 20 unit SQ AC-BRKFST #0 07/29/17 [NovoLIN 70-30 100 UNIT/ML VIAL] Allergies Allergy/AdvReac Type Severity Reaction Status Date / Time No Known Allergies Allergy Verified 01/13/18 00:57 Review of Systems ROS Statement: Those systems with pertinent positive or pertinent negative responses have been documented in the HPI. ROS Other: All systems not noted in ROS Statement are negative. Constitutional: Denies: fever, chills Respiratory: Denies: cough, dyspnea Cardiovascular: Reports: chest pain. Denies: palpitations, orthopnea, edema, syncope Gastrointestinal: Denies: abdominal pain, nausea, vomiting, melena, hematochezia Genitourinary: Denies: dysuria, hematuria Musculoskeletal: Denies: back pain Skin: Denies: rash Neurological: Denies: headache, weakness, numbness EKG Findings - EKG Comments: EKG Findings:: ECG similar to comparison from July 2017. There is a difference in lead V2 that I suspect is due to lead placement. - EKG Results: EKG: interpreted by ERMD, sinus rhythm (Rate approximate 67 bpm) - Blocks, Drew, Hypertrophy, ST Abn: AV and intraventricular conduction: right bundle branch block (fixed/ intermittent, complete/incomplete) QRS axis and voltage: left axis deviation (-30 to -90) - CO, Pacemaker, Normal: Myocardial infarction: inferior CO (old age indeterminate), anterior CO (old age or indeterminate), lateral CO (old age or indeterminate) Past Medical History Past Medical History: Diabetes Mellitus, GERD/Reflux, Hyperlipidemia, Musculoskeletal Disorder, Pneumonia Additional Past Medical History / Comment(s): SEE H & P FOR CARDIAC HX Last Myocardial Infarction Date:: 2001 History of Any Multi-Drug Resistant Organisms: None Reported Past Surgical History: Heart Catheterization, Heart Catheterization With Stent, Joint Replacement, Orthopedic Surgery Additional Past Surgical History / Comment(s): BILAT TOTAL KNEE REPLACEMENT, RT KNEE SCOPE, BILAT CTR, (R) shoulder surgery. Past Anesthesia/Blood Transfusion Reactions: No Reported Reaction Date of Last Stent Placement:: May 2017 Past Psychological History: No Psychological Hx Reported Smoking Status: Former smoker Past Alcohol Use History: None Reported Past Drug Use History: None Reported - Past Family History Father History Unknown: Yes Mother History Unknown: Yes Additional Family Medical History / Comment(s): pt states she is and he does not know history General Exam Limitations: no limitations General appearance: alert, in no apparent distress, obese Head exam: Present: atraumatic, normocephalic Eye exam: Present: normal appearance. Absent: scleral icterus, conjunctival injection ENT exam: Present: normal oropharynx Neck exam: Present: normal inspection, full ROM Respiratory exam: Present: normal lung sounds bilaterally. Absent: respiratory distress, wheezes, rales, rhonchi, stridor Cardiovascular Exam: Present: regular rate, normal rhythm, normal heart sounds. Absent: systolic murmur, diastolic murmur, rubs, gallop GI/Abdominal exam: Present: soft. Absent: distended, tenderness, guarding, rebound, rigid Extremities exam: Present: normal inspection, normal capillary refill. Absent: pedal edema, calf tenderness Back exam: Present: normal inspection. Absent: CVA tenderness (R), CVA tenderness (L) Neurological exam: Present: alert Skin exam: Present: warm, dry, intact, normal color. Absent: rash Course Vital Signs 01/13/18 01/13/18 01/13/18 00:54 02:00 03:17 Temperature 97.8 F 97.8 F Pulse Rate 70 58 L 61 Respiratory 18 18 18 Rate Blood Pressure 163/71 129/61 159/74 O2 Sat by Pulse 99 97 98 Oximetry Disposition Clinical Impression: Chest pain Disposition: ADMITTED IP TO THIS HOSP Condition: Good Referrals: Carrie Izaguirre MD [Primary Care Provider] - 1-2 days
[2018-01-13 01:27] LABS: Basophils % (A) 1 %; Eosinophils # (A) 0.1 k/uL (0-0.7); Eosinophils % (A) 3 %; HCT 39.5 % (39.0-53.0); HGB 13.1 gm/dL (13.0-17.5); Lymphocytes # (A) 1.3 k/uL (1.0-4.8); Lymphocytes % (A) 33 %; MCH 32.2 pg (25.0-35.0); MCHC 33.2 g/dL (31.0-37.0); Mean Platelet Volume 7.2; Monocytes # (A) 0.2 k/uL (0-1.0); Monocytes % (A) 4 %; Neutrophils # (A) 2.3 k/uL (1.3-7.7); Neutrophils % (A) 58 %; RBC 4.07 m/uL (4.30-5.90); RDW 14.1 % (11.5-15.5)
--- NOTE | 2018-01-13 01:36 | XR ---
EXAMINATION TYPE: XR chest 1V portable DATE OF EXAM: 01/13/2018 COMPARISON: August 25, 2017 HISTORY: Chest pain TECHNIQUE: Single frontal view of the chest is obtained. FINDINGS: There is no heart failure nor confluent pneumonic infiltrate. Costophrenic angles are gumaro r. There are chest leads. There is right shoulder prosthesis. IMPRESSION: No active cardiopulmonary disease. No significant change.
[2018-01-13 01:37] LABS: ALT 28 U/L (21-72); AST 31 U/L (17-59); Albumin 4.1 g/dL (3.5-5.0); Alkaline Phosphatase 82 U/L (38-126); Amylase 41 U/L (30-110); Anion Gap 16 mmol/L; Blood Urea Nitrogen 15 mg/dL (9-20); Calcium 9.5 mg/dL (8.4-10.2); Carbon Dioxide 24 mmol/L (22-30); Chloride 104 mmol/L (98-107); Glucose 128 mg/dL (74-99); Lipase 59 U/L (23-300); Magnesium 1.5 mg/dL (1.6-2.3); Potassium 3.9 mmol/L (3.5-5.1); Sodium 144 mmol/L (137-145); Total Bilirubin 0.6 mg/dL (0.2-1.3); Total Protein 6.6 g/dL (6.3-8.2)
[2018-01-13 01:41] LABS: Platelet Count 78 k/uL (150-450)
[2018-01-13 01:43] LABS: INR 1.1 (<1.2); Partial Thromboplastin Time 22.8 sec (22.0-30.0); Prothrombin Time 10.5 sec (9.0-12.0)
[2018-01-13 01:49] LABS: Creatine Kinase 52 U/L (55-170)
[2018-01-13 02:03] LABS: Troponin I <0.012 ng/mL (0.000-0.034)
[2018-01-13 02:06] LABS: Creatine Kinase MB 2.8 ng/mL (0.0-2.4)
[2018-01-13] MEDS ORDERED: NITROGLYCERIN SL TABS 0.4 MG TAB SUBLINGUAL PRN (02:38)
[2018-01-13 03:51] VITALS: RESP 16; BMI 39.5
[2018-01-13 04:47] VITALS: PULSE 80
[2018-01-13 06:28] LABS: Glucose,Whole Blood 108 mg/dL (75-99)
[2018-01-13 06:55] LABS: Creatine Kinase 46 U/L (55-170)
[2018-01-13 07:07] LABS: Creatine Kinase MB 2.4 ng/mL (0.0-2.4); Troponin I <0.012 ng/mL (0.000-0.034)
[2018-01-13] MEDS ORDERED: metFORMIN 500 MG TAB PO SCH (07:30)
[2018-01-13] MEDS ORDERED: CARVEDILOL 12.5 MG TAB PO SCH (07:30)
[2018-01-13] MEDS ORDERED: INSULIN NPH/REG INSULIN 70/30 300 UNIT/3 ML VIAL SQ SCH ×2 (07:30→17:30)
[2018-01-13 08:12] VITALS: TEMP 97.5
[2018-01-13] MEDS: MAGNESIUM SULFATE-D5W PMX 1 GM in DEXTROSE/WATER 1 100ML.BAG IVPB SCH ×2 (08:24→09:37)
--- NOTE | 2018-01-13 08:26 | P.CRDCN ---
History of Present Illness Consult date: 01/13/18 Requesting physician: Harika Crain Consult reason: chest pain Chief complaint: Chest pain History of present illness: This pleasant 72-year-old gentleman who follows regularly with Dr. Hernadez in the office. He has known history of coronary artery disease with prior stent placement, and January 2017 received a mid RCA stent, at that time patient was found to have a patent stent in the distal RCA, intermediate disease in the mid LAD, patient also has known ischemic cardiomyopathy with an EF of 40% on prior echo. History of diabetes, hypertension, hyperlipidemia and COPD. Patient states that he was getting ready for bed last evening when he developed pressure in the center of his chest, he states he took one sublingual nitroglycerin which gave him a headache but did not relieve the symptoms. He came to the emergency room at that time for further evaluation. EKG on presentation here showed a normal sinus rhythm with left axis deviation and a right bundle branch block pattern. Anterior lateral and inferior ST-T wave changes similar to prior EKGs. Chest x-ray did not reveal any active cardiopulmonary disease. Troponins 2 have been negative. Magnesium 1.5 on admission, sodium 144, potassium 3.9, BUN 15, creatinine 0.9. White blood cell count is normal, hemoglobin 13.1, platelet count 78. Blood pressure on arrival here 162/70 with heart rate in the 70s, 99% on room air. At the time of my examination this morning, patient has just completed eating his breakfast, states he feels well, no further episodes of chest discomfort Past Medical History Past Medical History: Chest Pain / Angina, Diabetes Mellitus, GERD/Reflux, Hyperlipidemia, Musculoskeletal Disorder, Pneumonia Additional Past Medical History / Comment(s): SEE H & P FOR CARDIAC HX Last Myocardial Infarction Date:: 2001 History of Any Multi-Drug Resistant Organisms: None Reported Past Surgical History: Heart Catheterization, Heart Catheterization With Stent, Joint Replacement, Orthopedic Surgery Additional Past Surgical History / Comment(s): BILAT TOTAL KNEE REPLACEMENT, RT KNEE SCOPE, BILAT CTR, (R) shoulder surgery. Past Anesthesia/Blood Transfusion Reactions: No Reported Reaction Date of Last Stent Placement:: May 2017 Past Psychological History: No Psychological Hx Reported Smoking Status: Former smoker Past Alcohol Use History: None Reported Past Drug Use History: None Reported - Past Family History Father History Unknown: Yes Mother History Unknown: Yes Additional Family Medical History / Comment(s): pt states she is and he does not know history Medications and Allergies Home Medications Medication Instructions Recorded Confirmed Type Allopurinol [Zyloprim] 300 mg PO DAILY 06/07/14 07/28/17 History Aspirin 325 mg PO DAILY 06/07/14 07/28/17 History Insulin NPH Hum/Reg Insulin Hm 10 unit SQ AC-SUPPER 06/07/14 07/28/17 History [NovoLIN 70-30 100 UNIT/ML VIAL] Isosorbide Mononitrate [Imdur] 30 mg PO DAILY 06/07/14 07/28/17 History metFORMIN HCL 1,000 mg PO BID 06/07/14 07/28/17 History Ergocalciferol [Vitamin D2 50,000 unit PO Q14D 03/07/16 07/28/17 History (DRISDOL)] Ferrous Sulfate [Iron (65 MG 325 mg PO DAILY 03/07/16 07/28/17 History Elemental)] Spironolactone [Aldactone] 25 mg PO DAILY #30 tab 03/09/16 07/28/17 Rx Clopidogrel [Plavix] 75 mg PO DAILY #30 tab 02/11/17 07/28/17 Rx Nitroglycerin Sl Tabs [Nitrostat] 0.4 mg SUBLINGUAL Q5M PRN #50 tab 02/11/1703/10 Rx Atorvastatin [Lipitor] 20 mg PO HS 07/21/17 07/28/17 History Carvedilol [Coreg] 12.5 mg PO BID 07/21/17 07/28/17 History Fish Oil/Dha/Epa [Fish Oil 1,200 1 cap PO DAILY 07/21/17 07/28/17 History mg Fish Oil] Amoxic-Pot Clav 875-125Mg 1 tab PO Q12HR #14 tablet 07/24/17 07/28/17 Rx [Augmentin 875-125] methylPREDNISolone Dose Pack 4 mg PO DIRECTED #21 package 07/24/17 07/28/17 Rx [Medrol Dose Pack] Insulin NPH Hum/Reg Insulin Hm 20 unit SQ AC-BRKFST #0 07/29/17 07/28/17 Rx [NovoLIN 70-30 100 UNIT/ML VIAL] Allergies Allergy/AdvReac Type Severity Reaction Status Date / Time No Known Allergies Allergy Verified 01/13/18 00:57 Physical Exam Vitals: Vital Signs Temp Pulse Pulse Resp BP BP Pulse Ox 01/13/18 04:00 80 01/13/18 03:33 98 F 64 16 152/71 97 01/13/18 03:17 97.8 F 61 18 159/74 98 01/13/18 02:38 98 01/13/18 02:00 58 L 18 129/61 97 01/13/18 00:54 97.8 F 70 18 163/71 99 Intake and Output 01/12/18 01/13/18 01/13/18 22:59 06:59 14:59 Intake Total 200 Balance 200 Intake: Oral 200 Other: # Voids 1 Weight 114.4 kg PHYSICAL EXAMINATION: HEENT: Head is atraumatic, normocephalic. Pupils equal, round. Neck is supple. There is no elevated jugular venous pressure. HEART EXAMINATION: Heart S1, S2 normal. No murmur or gallop heard. CHEST EXAMINATION: Lungs are clear to auscultation and precussion. No chest wall tenderness is noted on palpation or with deep breathing. ABDOMEN: Soft, nontender. Bowel sounds are heard. No organomegaly noted. EXTREMITIES: 2+ peripheral pulses with no evidence of peripheral edema and no calf tenderness noted. NEUROLOGIC patient is awake, alert and oriented -3. . Results 01/13/18 00:51 01/13/18 00:51 Cardiac Enzymes 01/13/18 01/13/18 01/13/18 Range/Units 00:51 00:51 06:14 AST 31 (17-59) U/L CK-MB (CK-2) 2.8 H* 2.4 (0.0-2.4) ng/mL Troponin I <0.012 <0.012 (0.000-0.034) ng/mL Coagulation 01/13/18 Range/Units 00:51 PT 10.5 (9.0-12.0) sec APTT 22.8 (22.0-30.0) sec CBC 01/13/18 Range/Units 00:51 WBC 4.0 (3.8-10.6) k/uL RBC 4.07 L (4.30-5.90) m/uL Hgb 13.1 (13.0-17.5) gm/dL Hct 39.5 (39.0-53.0) % Plt Count 78 L (150-450) k/uL Comprehensive Metabolic Panel 01/13/18 Range/Units 00:51 Sodium 144 (137-145) mmol/L Potassium 3.9 (3.5-5.1) mmol/L Chloride 104 (98-107) mmol/L Carbon Dioxide 24 (22-30) mmol/L BUN 15 (9-20) mg/dL Creatinine 0.90 (0.66-1.25) mg/dL Glucose 128 H (74-99) mg/dL Calcium 9.5 (8.4-10.2) mg/dL AST 31 (17-59) U/L ALT 28 (21-72) U/L Alkaline Phosphatase 82 (38-126) U/L Total Protein 6.6 (6.3-8.2) g/dL Albumin 4.1 (3.5-5.0) g/dL Current Medications Generic Name Dose Route Start Last Admin Trade Name Freq PRN Reason Stop Dose Admin Allopurinol 300 mg 01/13/18 09:00 Zyloprim PO DAILY [facility] Aspirin 325 mg 01/14/18 09:00 Aspirin PO DAILY [facility] Atorvastatin Calcium 20 mg 01/13/18 21:00 Lipitor PO HS [facility] Carvedilol 12.5 mg 01/13/18 07:30 01/13/18 06:09 Coreg PO 12.5 mg AC-BID [facility] Administration Clopidogrel Bisulfate 75 mg 01/13/18 09:00 Plavix PO DAILY [facility] Ferrous Sulfate 325 mg 01/13/18 09:00 Feosol PO DAILY [facility] Magnesium Sulfate/Dextrose 1 100 mls @ 100 mls/hr 01/13/18 08:00 gm/ IV Solution IVPB 01/13/18 09:59 Q1H [facility] Insulin Human Isoph/Insulin Regular 20 unit 01/13/18 07:30 01/13/18 06:51 Humulin 70/30 Vial SQ 20 unit AC-BRKFST BRINDA Administration Insulin Human Isoph/Insulin Regular 10 unit 01/13/18 17:30 Humulin 70/30 Vial SQ AC-SUPPER [facility] Isosorbide Mononitrate 30 mg 01/13/18 09:00 Imdur PO DAILY [facility] Metformin HCl 1,000 mg 01/13/18 07:30 01/13/18 06:09 Glucophage PO 1,000 mg AC-BID BRINDA Administration Nitroglycerin 0.4 mg 01/13/18 02:38 Nitrostat SUBLINGUAL Q5M PRN Chest Pain Sodium Chloride 10 ml 01/13/18 09:00 Saline Flush IV BID BRINDA Spironolactone 25 mg 01/13/18 09:00 Aldactone PO DAILY BRINDA Intake and Output 01/12/18 01/13/18 01/13/18 22:59 06:59 14:59 Intake Total 200 Balance 200 Intake: Oral 200 Other: # Voids 1 Weight 114.4 kg 01/13/18 00:51 01/13/18 00:51 EKG Interpretations (text) EKG shows normal sinus rhythm with a right bundle branch block pattern ST-T wave changes in the inferior, anterior lateral leads, similar to prior EKGs. Assessment and Plan Plan: Assessment and plan #1 atypical chest discomfort, troponins negative 2, EKG shows normal sinus rhythm with no acute changes. ST-T wave changes noted in the anterior lateral and inferior leads prior EKGs. #2 known history of coronary artery disease with prior three-vessel stenting, most recent stent placement was performed in January of last year to the mid right coronary artery #3 hypertension #4 diabetes # 5 hyperlipidemia #6 COPD Plan We will obtain a third troponin, most recent echocardiogram with Doppler study was performed in January 2017 which revealed an ejection fraction of 40-45%. We will repeat an echocardiogram with Doppler study. We will also obtain Dr. Hernadez 's progress note from the office to see when the patient last had stress testing performed. His pain however is atypical in nature. Further recommendations to follow DNP note has been reviewed, I agree with a documented findings and plan of care. Patient was seen and examined.
[2018-01-13] MEDS ORDERED: ISOSORBIDE MONONITRATE ER 30 MG TAB.ER.24H PO SCH (09:00)
[2018-01-13] MEDS ORDERED: SPIRONOLACTONE 25 MG TAB PO SCH (09:00)
[2018-01-13] MEDS ORDERED: FERROUS SULFATE 325 MG TAB PO SCH (09:00)
[2018-01-13] MEDS ORDERED: CLOPIDOGREL 75 MG TAB PO SCH (09:00)
[2018-01-13] MEDS ORDERED: ALLOPURINOL 300 MG TAB PO SCH (09:00)
[2018-01-13 11:59] LABS: Glucose,Whole Blood 116 mg/dL (75-99)
[2018-01-13 12:10] VITALS: BP 126/58
[2018-01-13 13:47] LABS: Creatine Kinase 60 U/L (55-170)
[2018-01-13 13:59] LABS: Troponin I <0.012 ng/mL (0.000-0.034)
[2018-01-13 14:03] LABS: Creatine Kinase MB 2.5 ng/mL (0.0-2.4)
--- NOTE | 2018-01-13 15:20 | P.DS ---
Providers Date of admission: 01/13/18 02:38 Attending physician: Harika Crain MD Consults: 01/13/18 02:38 Consult Physician Routine Consulting Provider: Ankur Morrow Consult Reason/Comments: chest pain Do you want consulting provider notified?: Yes Primary care physician: Carrie Izaguirre [facility] Course: Please refer to my HPI Patient Condition at Discharge: Good Plan - Discharge Summary Discharge Rx Participant: No New Discharge Prescriptions: No Action metFORMIN HCL 1,000 mg PO BID Isosorbide Mononitrate [Imdur] 30 mg PO DAILY Aspirin 325 mg PO DAILY Allopurinol [Zyloprim] 300 mg PO DAILY Insulin NPH Hum/Reg Insulin Hm [NovoLIN 70-30 100 UNIT/ML VIAL] 10 unit SQ AC -SUPPER Ferrous Sulfate [Iron (65 MG Elemental)] 325 mg PO DAILY Ergocalciferol [Vitamin D2 (DRISDOL)] 50,000 unit PO Q7D Spironolactone [Aldactone] 25 mg PO DAILY #30 tab Clopidogrel [Plavix] 75 mg PO DAILY #30 tab Nitroglycerin Sl Tabs [Nitrostat] 0.4 mg SUBLINGUAL Q5M PRN #50 tab PRN Reason: Chest Pain Carvedilol [Coreg] 12.5 mg PO BID Atorvastatin [Lipitor] 20 mg PO HS Insulin NPH Hum/Reg Insulin Hm [NovoLIN 70-30 100 UNIT/ML VIAL] 20 unit SQ AC -BRKFST #0 Discharge Medication List Allopurinol [Zyloprim] 300 mg PO DAILY 06/07/14 [History] Aspirin 325 mg PO DAILY 06/07/14 [History] Insulin NPH Hum/Reg Insulin Hm [NovoLIN 70-30 100 UNIT/ML VIAL] 10 unit SQ AC- SUPPER 06/07/14 [History] Isosorbide Mononitrate [Imdur] 30 mg PO DAILY 06/07/14 [History] metFORMIN HCL 1,000 mg PO BID 06/07/14 [History] Ergocalciferol [Vitamin D2 (DRISDOL)] 50,000 unit PO Q7D 03/07/16 [History] Ferrous Sulfate [Iron (65 MG Elemental)] 325 mg PO DAILY 03/07/16 [History] Spironolactone [Aldactone] 25 mg PO DAILY #30 tab 03/09/16 [Rx] Clopidogrel [Plavix] 75 mg PO DAILY #30 tab 02/11/17 [Rx] Nitroglycerin Sl Tabs [Nitrostat] 0.4 mg SUBLINGUAL Q5M PRN #50 tab 02/11/17 [Rx ] Atorvastatin [Lipitor] 20 mg PO HS 07/21/17 [History] Carvedilol [Coreg] 12.5 mg PO BID 07/21/17 [History] Insulin NPH Hum/Reg Insulin Hm [NovoLIN 70-30 100 UNIT/ML VIAL] 20 unit SQ AC- BRKFST #0 07/29/17 [Rx] Follow up Appointment(s)/Referral(s): Carrie Izaguirre MD [Primary Care Provider] - 01/14/18 10:15 am Patient Instructions/Handouts: Angina (DC) Discharge Disposition: HOME SELF-CARE
--- NOTE | 2018-01-13 15:20 | P.HPIM ---
History of Present Illness 72-year-old gentleman who follows regularly with Dr. Hernadez in the office. He has known history of coronary artery disease with prior stent placement, and January 2017 received a mid RCA stent, at that time patient was found to have a patent stent in the distal RCA, intermediate disease in the mid LAD, patient also has known ischemic cardiomyopathy with an EF of 40% on prior echo. History of diabetes, hypertension, hyperlipidemia and COPD. Patient states that he was getting ready for bed last evening when he developed pressure in the center of his chest, after drinking quinine water which she normally does for his bilateral knee pain and he took one sublingual nitroglycerin which gave him a headache but did not relieve the symptoms. Patient's pain was about 6 x 10 in severity nonradiating mid substernal pressure -like sensation nonpleuritic in nature not associated with food He came to the emergency room at that time for further evaluation. EKG on presentation here showed a normal sinus rhythm with left axis deviation and a right bundle branch block pattern. Anterior lateral and inferior ST-T wave changes similar to prior EKGs. Chest x-ray did not reveal any active cardiopulmonary disease. Troponins 2 have been negative. Patient was hypomagnesemic and received the 2 g of magnesium Review of Systems REVIEW OF SYSTEMS: CONSTITUTIONAL: No fever, no malaise, no fatigue. HEENT: No recent visual problems or hearing problems. Denied any sore throat. CARDIOVASCULAR: No orthopnea, PND, no palpitations, no syncope. PULMONARY: No shortness of breath, no cough, no hemoptysis. GASTROINTESTINAL: No diarrhea, no nausea, no vomiting, no abdominal pain. Normoactive bowel sounds. NEUROLOGICAL: No headaches, no weakness, no numbness. HEMATOLOGICAL: Denies any bleeding or petechiae. GENITOURINARY: Denies any burning micturition, frequency, or urgency. MUSCULOSKELETAL/RHEUMATOLOGICAL: Denies any joint pain, swelling, or any muscle pain. ENDOCRINE: Denies any polyuria or polydipsia. The rest of the 14-point review of systems is negative. Past Medical History Past Medical History: Chest Pain / Angina, Diabetes Mellitus, GERD/Reflux, Hyperlipidemia, Musculoskeletal Disorder, Pneumonia Additional Past Medical History / Comment(s): SEE H & P FOR CARDIAC HX Last Myocardial Infarction Date:: 2001 History of Any Multi-Drug Resistant Organisms: None Reported Past Surgical History: Heart Catheterization, Heart Catheterization With Stent, Joint Replacement, Orthopedic Surgery Additional Past Surgical History / Comment(s): BILAT TOTAL KNEE REPLACEMENT, RT KNEE SCOPE, BILAT CTR, (R) shoulder surgery. Past Anesthesia/Blood Transfusion Reactions: No Reported Reaction Date of Last Stent Placement:: May 2017 Past Psychological History: No Psychological Hx Reported Smoking Status: Former smoker Past Alcohol Use History: None Reported Past Drug Use History: None Reported - Past Family History Father History Unknown: Yes Mother History Unknown: Yes Additional Family Medical History / Comment(s): pt states she is and he does not know history Medications and Allergies Home Medications Medication Instructions Recorded Confirmed Type Allopurinol [Zyloprim] 300 mg PO DAILY 06/07/14 01/13/18 History Aspirin 325 mg PO DAILY 06/07/14 01/13/18 History Insulin NPH Hum/Reg Insulin Hm 10 unit SQ AC-SUPPER 06/07/14 01/13/18 History [NovoLIN 70-30 100 UNIT/ML VIAL] Isosorbide Mononitrate [Imdur] 30 mg PO DAILY 06/07/14 01/13/18 History metFORMIN HCL 1,000 mg PO BID 06/07/14 01/13/18 History Ergocalciferol [Vitamin D2 50,000 unit PO Q7D 03/07/16 01/13/18 History (DRISDOL)] Ferrous Sulfate [Iron (65 MG 325 mg PO DAILY 03/07/16 01/13/18 History Elemental)] Spironolactone [Aldactone] 25 mg PO DAILY #30 tab 03/09/16 01/13/18 Rx Clopidogrel [Plavix] 75 mg PO DAILY #30 tab 02/11/17 01/13/18 Rx Nitroglycerin Sl Tabs [Nitrostat] 0.4 mg SUBLINGUAL Q5M PRN #50 tab 02/11/17 Rx Atorvastatin [Lipitor] 20 mg PO HS 07/21/17 01/13/18 History Carvedilol [Coreg] 12.5 mg PO BID 07/21/17 01/13/18 History Insulin NPH Hum/Reg Insulin Hm 20 unit SQ AC-BRKFST #0 07/29/17 01/13/18 Rx [NovoLIN 70-30 100 UNIT/ML VIAL] Allergies Allergy/AdvReac Type Severity Reaction Status Date / Time No Known Allergies Allergy Verified 01/13/18 00:57 Physical Exam Vitals: Vital Signs Temp Pulse Pulse Resp BP BP Pulse Ox 01/13/18 12:07 97.5 F L 63 16 126/58 96 01/13/18 08:08 97.5 F L 59 L 16 130/60 96 01/13/18 04:00 80 01/13/18 03:33 98 F 64 16 152/71 97 01/13/18 03:17 97.8 F 61 18 159/74 98 01/13/18 02:38 98 01/13/18 02:00 58 L 18 129/61 97 01/13/18 00:54 97.8 F 70 18 163/71 99 Intake and Output 01/13/18 01/13/18 01/13/18 06:59 14:59 22:59 Intake Total 200 834 Balance 200 834 Intake: Oral 200 834 Other: # Voids 1 Weight 114.4 kg PHYSICAL EXAMINATION: GENERAL: The patient is alert and oriented x3, not in any acute distress. Well developed, well nourished. obese HEENT: Pupils are round and equally reacting to light. EOMI. No scleral icterus. No conjunctival pallor. Normocephalic, atraumatic. No pharyngeal erythema. No thyromegaly. CARDIOVASCULAR: S1 and S2 present. No murmurs, rubs, or gallops. PULMONARY: Chest is clear to auscultation, no wheezing or crackles. ABDOMEN: Soft, nontender, nondistended, normoactive bowel sounds. No palpable organomegaly. MUSCULOSKELETAL: No joint swelling or deformity. EXTREMITIES: No cyanosis, clubbing, or pedal edema. NEUROLOGICAL: Gross neurological examination did not reveal any focal deficits. SKIN: No rashes. Results CBC & Chem 7: 01/13/18 00:51 01/13/18 00:51 Labs: Abnormal Lab Results - Last 24 Hours (Table) 01/13/18 01/13/18 01/13/18 Range/Units 00:51 00:51 00:51 RBC 4.07 L (4.30-5.90) m/uL Plt Count 78 L (150-450) k/uL Glucose 128 H (74-99) mg/dL POC Glucose (mg/dL) (75-99) mg/dL Magnesium 1.5 L (1.6-2.3) mg/dL Total Creatine Kinase 52 L (55-170) U/L CK-MB (CK-2) 2.8 H* (0.0-2.4) ng/mL 01/13/18 01/13/18 01/13/18 Range/Units 06:14 06:20 11:53 RBC (4.30-5.90) m/uL Plt Count (150-450) k/uL Glucose (74-99) mg/dL POC Glucose (mg/dL) 108 H 116 H (75-99) mg/dL Magnesium (1.6-2.3) mg/dL Total Creatine Kinase 46 L (55-170) U/L CK-MB (CK-2) (0.0-2.4) ng/mL 01/13/18 Range/Units 13:07 RBC (4.30-5.90) m/uL Plt Count (150-450) k/uL Glucose (74-99) mg/dL POC Glucose (mg/dL) (75-99) mg/dL Magnesium (1.6-2.3) mg/dL Total Creatine Kinase (55-170) U/L CK-MB (CK-2) 2.5 H* (0.0-2.4) ng/mL Thrombosis Risk Factor Assmnt - Choose All That Apply Any of the Below Risk Factors Present?: Yes Each Factor Represents 1 point: Obesity (BMI >25) Other Risk Factors: Yes Each Risk Factor Represents 2 Points: Age 61-74 years Other congenital or acquired thrombophilia - If yes, enter type in comment: No Thrombosis Risk Factor Assessment Total Risk Factor Score: 3 Thrombosis Risk Factor Assessment Level: Moderate Risk Assessment and Plan Plan: -Chest pain: Ruled out acute medicine syndromes, patient was evaluated by cardiology and cleared for discharge to follow with Dr. Morrow as an outpatient. Quinine does cause arrhythmias which may lead to pressure-like chest pain. 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 -Ischemic cardiomyopathy with ejection fraction of around 45%: Not in acute heart failure exacerbation patient has chronic systolic dysfunction. Next and- obesity -Hypertension -Coronary artery disease -type 2 diabetes mellitus -Hyperlipidemia. For above-mentioned chronic medical problems patient can be resumed on his home medications and continue home medications without any changes magnesium was supplemented
[2018-01-13] MEDS ORDERED: ATORVASTATIN 20 MG TAB PO SCH (21:00)
[2018-01-14] MEDS ORDERED: ASPIRIN 325 MG TAB PO SCH (09:00)
== END 2018-01-13 15:19 | disposition home or self-care (01) ==
LOC: EC 00:39 → 6SEL 02:38
PROVIDERS: ADMIT Internal Medicine; ATTEND Internal Medicine
DX: R07.89 Other chest pain (principal); I25.5 Ischemic cardiomyopathy; I10 Essential (primary) hypertension; I25.10 Atherosclerotic heart disease of native coronary artery without angina pectoris; E83.42 Hypomagnesemia; R51 Headache; T46.3X5A Adverse effect of coronary vasodilators, initial encounter; E78.5 Hyperlipidemia, unspecified; E11.9 Type 2 diabetes mellitus without complications; J44.9 Chronic obstructive pulmonary disease, unspecified; K21.9 Gastro-esophageal reflux disease without esophagitis; E66.9 Obesity, unspecified; Z68.25 Body mass index [BMI] 25.0-25.9, adult; I25.2 Old myocardial infarction; Z79.02 Long term (current) use of antithrombotics/antiplatelets; Z79.82 Long term (current) use of aspirin; Z79.4 Long term (current) use of insulin; Z79.84 Long term (current) use of oral hypoglycemic drugs; Z79.899 Other long term (current) drug therapy; Z87.01 Personal history of pneumonia (recurrent); Z95.5 Presence of coronary angioplasty implant and graft; Z87.891 Personal history of nicotine dependence; Z96.659 Presence of unspecified artificial knee joint
CPT/HCPCS: 99285 ×2; 96375 ×2; 96365; 96366; 36415; 93005; 80053; 82150; 82550; 82553; 83690; 83735; 84484; 85025; 85610; 85730; 71045; G0378; J2270; J3475

== ENCOUNTER 2018-01-28 04:04 | Emergency (ER) | payer MEDICARE ==
[2018-01-28 04:11] VITALS: RESP 18
[2018-01-28] MEDS ORDERED: MORPHINE SULFATE 4 MG/ML SYRINGE IV STA ×2 (04:20→05:21)
[2018-01-28] MEDS ORDERED: ONDANSETRON 4 MG/2 ML VIAL IVP STA ×2 (04:24→05:43)
--- NOTE | 2018-01-28 05:01 | CT ---
EXAM: CT Abdomen and Pelvis Without Intravenous Contrast CLINICAL HISTORY: ITS.REASON CT Reason: abdominal pain TECHNIQUE: Axial computed tomography images of the abdomen and pelvis without intravenous contrast. DLP is 1734.7 mGy-cm. This CT exam was performed using one or more of the following dose reduction techniques: automated exposure control, adjustment of the mA and/or kV according to patient size, and/or use of iterative reconstruction technique. COMPARISON: None. FINDINGS: Lower thorax: Moderate coronary artery calcification. ABDOMEN: Liver: Unremarkable. Gallbladder and bile ducts: Unremarkable. No calcified stones. No ductal dilation. Pancreas: Unremarkable. No ductal dilation. Spleen: Unremarkable. No splenomegaly. Adrenals: Unremarkable. No mass. Kidneys and ureters: Multiple nonobstructing right renal calculi measuring up to 3 mm. Fat stranding along the course the right ureter adjacent the right kidney with mild hydronephrosis. 3 mm calculus within the proximal right ureter. Stomach and bowel: Diverticulosis with very mild fat stranding adjacent to the distal descending colon and proximal sigmoid colon. No obstruction. No mucosal thickening. Appendix: Nonvisualization of the appendix. No pericecal inflammatory changes. PELVIS: Bladder: Unremarkable. No stones. Reproductive: Unremarkable as visualized. ABDOMEN and PELVIS: Intraperitoneal space: Unremarkable. No free air. No significant fluid collection. Bones/joints: No acute fracture. Soft tissues: Unremarkable. Vasculature: Unremarkable. No abdominal aortic aneurysm. Lymph nodes: Unremarkable. No enlarged lymph nodes. IMPRESSION: Diverticulosis with very mild fat stranding adjacent to the distal descending colon and proximal sigmoid colon. This is highly suspicious for early/mild diverticulitis. 3 mm calculus within the proximal right ureter resulting in mild hydronephrosis. There is also fat stranding along the course of the right ureter suggestive of additional recently passed stone.
[2018-01-28 05:11] LABS: Basophils % (A) 1 %; Eosinophils # (A) 0.1 k/uL (0-0.7); Eosinophils % (A) 2 %; HCT 37.2 % (39.0-53.0); HGB 12.7 gm/dL (13.0-17.5); Lymphocytes # (A) 1.1 k/uL (1.0-4.8); Lymphocytes % (A) 31 %; MCH 32.1 pg (25.0-35.0); MCV 94.2 fL (80.0-100.0); Mean Platelet Volume 7.6; Monocytes # (A) 0.3 k/uL (0-1.0); Monocytes % (A) 7 %; Neutrophils % (A) 57 %; RBC 3.95 m/uL (4.30-5.90); RDW 13.8 % (11.5-15.5); WBC 3.4 k/uL (3.8-10.6)
[2018-01-28 05:12] LABS: ALT 28 U/L (21-72); AST 28 U/L (17-59); Albumin 3.6 g/dL (3.5-5.0); Alkaline Phosphatase 76 U/L (38-126); Amylase 34 U/L (30-110); Anion Gap 8 mmol/L; Blood Urea Nitrogen 13 mg/dL (9-20); Calcium 9.1 mg/dL (8.4-10.2); Carbon Dioxide 26 mmol/L (22-30); Chloride 109 mmol/L (98-107); Glucose 122 mg/dL (74-99); Lipase 87 U/L (23-300); Potassium 4.3 mmol/L (3.5-5.1); Sodium 143 mmol/L (137-145); Total Bilirubin 0.7 mg/dL (0.2-1.3)
[2018-01-28 05:25] LABS: Platelet Count 79 k/uL (150-450)
[2018-01-28] MEDS ORDERED: KETOROLAC 30 MG/ML 1 ML VIAL IVP STA (05:27)
[2018-01-28] MEDS ORDERED: TAMSULOSIN 0.4 MG CAP.ER.24H PO STA (05:33)
[2018-01-28 05:59] LABS: Appearance,Urine Clear (Clear); Bacteria,Urine Rare /hpf; Bilirubin,Urine Negative (Negative); Blood,Urine Moderate (Negative); Color,Urine Yellow; Glucose,Urine (UA) Negative (Negative); Hyaline Casts,Urine 3 /lpf (0-2); Ketones,Urine Negative (Negative); Leukocyte Esterase,Urine Negative (Negative); Mucus,Urine Rare /hpf; PH, Urine 5.5 (5.0-8.0); Protein,Urine Negative (Negative); RBC,Urine 63 /hpf (0-5); Specific Gravity,Urine 1.017 (1.001-1.035); Squamous Epithelial Cell,Urine <1 /hpf (0-4); Urobilinogen,Urine <2.0 mg/dL (<2.0); WBC,Urine 1 /hpf (0-5)
--- NOTE | 2018-01-28 07:11 | ED ---
Abdominal Pain HPI - General Chief Complaint: Abdominal Pain Stated Complaint: Abd pain Time Seen by Provider: 01/28/18 04:05 Source: patient, EMS Mode of arrival: EMS Limitations: no limitations - History of Present Illness MD Complaint: abdominal pain Onset/Timin -: hour(s) Location: RLQ Radiation: none Migration to: no migration Severity: severe Quality: sharp Consistency: constant Improves With: nothing Worsens With: nothing Associated Symptoms: denies other symptoms - Related Data Home Medications Medication Instructions Recorded Confirmed Allopurinol [Zyloprim] 300 mg PO DAILY 06/07/14 01/13/18 Aspirin 325 mg PO DAILY 06/07/14 01/13/18 Insulin NPH Hum/Reg Insulin Hm 10 unit SQ AC-SUPPER 06/07/14 01/13/18 [NovoLIN 70-30 100 UNIT/ML VIAL] Isosorbide Mononitrate [Imdur] 30 mg PO DAILY 06/07/14 01/13/18 metFORMIN HCL 1,000 mg PO BID 06/07/14 01/13/18 Ergocalciferol [Vitamin D2 50,000 unit PO Q7D 03/07/16 01/13/18 (DRISDOL)] Ferrous Sulfate [Iron (65 MG 325 mg PO DAILY 03/07/16 01/13/18 Elemental)] Atorvastatin [Lipitor] 20 mg PO HS 07/21/17 01/13/18 Carvedilol [Coreg] 12.5 mg PO BID 07/21/17 01/13/18 Previous Rx's Medication Instructions Recorded Spironolactone [Aldactone] 25 mg PO DAILY #30 tab 03/09/16 Clopidogrel [Plavix] 75 mg PO DAILY #30 tab 02/11/17 Nitroglycerin Sl Tabs [Nitrostat] 0.4 mg SUBLINGUAL Q5M PRN #50 tab 02/11/17 Insulin NPH Hum/Reg Insulin Hm 20 unit SQ AC-BRKFST #0 07/29/17 [NovoLIN 70-30 100 UNIT/ML VIAL] Hydrocodone/Acetaminophen [[place] 1 each PO Q6HR PRN #20 tab 01/28/18 5-325] Tamsulosin [Flomax] 0.4 mg PO DAILY #14 cap 01/28/18 Allergies Allergy/AdvReac Type Severity Reaction Status Date / Time No Known Allergies Allergy Verified 01/13/18 00:57 Review of Systems ROS Statement: Those systems with pertinent positive or pertinent negative responses have been documented in the HPI. ROS Other: All systems not noted in ROS Statement are negative. Constitutional: Denies: fever, chills Respiratory: Denies: cough, dyspnea Cardiovascular: Denies: chest pain, palpitations, orthopnea Gastrointestinal: Reports: abdominal pain, nausea. Denies: vomiting, diarrhea, constipation, melena, hematochezia Genitourinary: Denies: dysuria, hematuria, testicular pain, testicular mass Musculoskeletal: Denies: back pain Skin: Denies: rash Neurological: Denies: headache, weakness, numbness Past Medical History Past Medical History: Chest Pain / Angina, Diabetes Mellitus, GERD/Reflux, Hyperlipidemia, Musculoskeletal Disorder, Pneumonia Additional Past Medical History / Comment(s): SEE H & P FOR CARDIAC HX Last Myocardial Infarction Date:: 2001 History of Any Multi-Drug Resistant Organisms: None Reported Past Surgical History: Heart Catheterization, Heart Catheterization With Stent, Joint Replacement, Orthopedic Surgery Additional Past Surgical History / Comment(s): BILAT TOTAL KNEE REPLACEMENT, RT KNEE SCOPE, BILAT CTR, (R) shoulder surgery. Past Anesthesia/Blood Transfusion Reactions: No Reported Reaction Date of Last Stent Placement:: May 2017 Past Psychological History: No Psychological Hx Reported Smoking Status: Former smoker Past Alcohol Use History: None Reported Past Drug Use History: None Reported - Past Family History Father History Unknown: Yes Mother History Unknown: Yes Additional Family Medical History / Comment(s): pt states she is and he does not know history General Exam Limitations: no limitations General appearance: alert, in no apparent distress, obese Head exam: Present: atraumatic, normocephalic Eye exam: Present: normal appearance. Absent: scleral icterus, conjunctival injection ENT exam: Present: normal oropharynx Neck exam: Present: normal inspection Respiratory exam: Present: normal lung sounds bilaterally. Absent: respiratory distress, wheezes, rales, rhonchi, stridor Cardiovascular Exam: Present: regular rate, normal rhythm, normal heart sounds. Absent: systolic murmur, diastolic murmur, rubs, gallop GI/Abdominal exam: Present: soft, normal bowel sounds. Absent: distended, tenderness, guarding, rebound, mass, pulsatile mass, hernia exam: Present: normal inspection, vertical testicular lie. Absent: testicular tenderness, scrotal swelling Extremities exam: Present: normal capillary refill. Absent: pedal edema, calf tenderness Back exam: Present: normal inspection. Absent: CVA tenderness (R), CVA tenderness (L) Skin exam: Present: warm, dry, intact, normal color. Absent: rash Course Vital Signs 01/28/18 04:04 Temperature 97 F L Pulse Rate 70 Respiratory 18 Rate Blood Pressure 139/64 O2 Sat by Pulse 95 Oximetry Medical Decision Making - Medical Decision Making This patient is a 72-year-old man presenting with acute onset of right lower quadrant pain. His CT does show some right perinephric stranding suggestive of recent kidney stone and there is blood in the patient's urine support of this diagnosis. The patient did have significant analgesic effect with the dose of Toradol, after the morphine did not really make much difference. Following week for lack, the patient was feeling better and didn't want to go home. He will follow with the urologist, we discussed appropriate further care and follow -up as well as return parameters. - Lab Data Result diagrams: 01/28/18 04:16 01/28/18 04:16 Lab Results 01/28/18 01/28/18 01/28/18 Range/Units 04:16 04:16 05:05 WBC 3.4 L (3.8-10.6) k/uL RBC 3.95 L (4.30-5.90) m/uL Hgb 12.7 L (13.0-17.5) gm/dL Hct 37.2 L (39.0-53.0) % MCV 94.2 (80.0-100.0) fL MCH 32.1 (25.0-35.0) pg MCHC 34.0 (31.0-37.0) g/dL RDW 13.8 (11.5-15.5) % Plt Count 79 L (150-450) k/uL Neutrophils % 57 % Lymphocytes % 31 % Monocytes % 7 % Eosinophils % 2 % Basophils % 1 % Neutrophils # 2.0 (1.3-7.7) k/uL Lymphocytes # 1.1 (1.0-4.8) k/uL Monocytes # 0.3 (0-1.0) k/uL Eosinophils # 0.1 (0-0.7) k/uL Basophils # 0.0 (0-0.2) k/uL Sodium 143 (137-145) mmol/L Potassium 4.3 (3.5-5.1) mmol/L Chloride 109 H (98-107) mmol/L Carbon Dioxide 26 (22-30) mmol/L Anion Gap 8 mmol/L BUN 13 (9-20) mg/dL Creatinine 0.80 (0.66-1.25) mg/dL Est GFR (CKD-EPI)AfAm >90 (>60 ml/min/1.73 sqM) Est GFR (CKD-EPI)NonAf >90 (>60 ml/min/1.73 sqM) Glucose 122 H (74-99) mg/dL Calcium 9.1 (8.4-10.2) mg/dL Total Bilirubin 0.7 (0.2-1.3) mg/dL AST 28 (17-59) U/L ALT 28 (21-72) U/L Alkaline Phosphatase 76 (38-126) U/L Total Protein 6.0 L (6.3-8.2) g/dL Albumin 3.6 (3.5-5.0) g/dL Amylase 34 (30-110) U/L Lipase 87 (23-300) U/L Urine Color Yellow Urine Appearance Clear (Clear) Urine pH 5.5 (5.0-8.0) Ur Specific [place] 1.017 (1.001-1.035) Urine Protein Negative (Negative) Urine Glucose (UA) Negative (Negative) Urine Ketones Negative (Negative) Urine Blood Moderate H (Negative) Urine Nitrite Negative (Negative) Urine Bilirubin Negative (Negative) Urine Urobilinogen <2.0 (<2.0) mg/dL Ur Leukocyte Esterase Negative (Negative) Urine RBC 63 H (0-5) /hpf Urine WBC 1 (0-5) /hpf Ur Squamous Epith Cells <1 (0-4) /hpf Urine Bacteria Rare H (None) /hpf Hyaline Casts 3 H (0-2) /lpf Urine Mucus Rare H (None) /hpf Disposition Clinical Impression: Abdominal pain, Calculus of kidney Disposition: HOME SELF-CARE Condition: Good Instructions: Kidney Stones (ED), Abdominal Pain (ED) Prescriptions: Hydrocodone/Acetaminophen [[place] 5-325] 1 each PO Q6HR PRN #20 tab PRN Reason: Pain Tamsulosin [Flomax] 0.4 mg PO DAILY #14 cap Referrals: Carrie Izaguirre MD [Primary Care Provider] - 1-2 days Amado Restrepo MD [STAFF PHYSICIAN] - 1-2 days
[2018-01-28 07:26] VITALS: BP 121/58; PULSE 62; TEMP 97.5
== END 2018-01-28 07:34 | disposition home or self-care (01) ==
LOC: EC 04:04
DX: N20.0 Calculus of kidney (principal); E78.5 Hyperlipidemia, unspecified; E11.9 Type 2 diabetes mellitus without complications; E66.9 Obesity, unspecified; Z87.891 Personal history of nicotine dependence; Z79.4 Long term (current) use of insulin; Z79.82 Long term (current) use of aspirin; Z79.899 Other long term (current) drug therapy; Z86.79 Personal history of other diseases of the circulatory system; Z68.39 Body mass index [BMI] 39.0-39.9, adult
CPT/HCPCS: 36415; 80053; 82150; 83690; 85025; 81001; 74176; 99285; 96374; 96375 ×2; 96376 ×2; J2270; J2405; J1885

== ENCOUNTER 2018-01-29 08:05 | Emergency (ER) | payer MEDICARE ==
[2018-01-29 08:10] VITALS: RESP 18
[2018-01-29] MEDS ORDERED: SODIUM CHLORIDE 0.9% 1,000 ML IV STA (08:21)
[2018-01-29] MEDS ORDERED: MORPHINE SULFATE 4 MG/ML SYRINGE IV STA (08:21)
[2018-01-29] MEDS ORDERED: KETOROLAC 30 MG/ML 1 ML VIAL IVP STA (08:21)
[2018-01-29] MEDS ORDERED: ONDANSETRON 4 MG/2 ML VIAL IVP STA (08:21)
--- NOTE | 2018-01-29 08:38 | ED ---
General Adult HPI <Anirudh Peters - Last Filed: 01/29/18 10:11> - General Source: patient, RN notes reviewed Mode of arrival: wheelchair Limitations: no limitations <Salina Castañeda - Last Filed: 01/29/18 10:23> - General Chief complaint: Abdominal Pain Stated complaint: ABDOMINAL PAIN, POSS KIDNEY STONE Time Seen by Provider: 01/29/18 08:11 - History of Present Illness Initial comments: 72-year-old male presents to the emergency department with a chief complaint of right-sided abdominal pain. Patient was seen here last night for this abdominal pain. He states that he was diagnosed with a kidney stone and he was sent home. Patient states that he continues to have this pain even though he's been using Narco's and the Flomax. Patient states he has not passed the stone that he is aware of. He denies any fever or chills. He denies any nausea or vomiting. She does have a follow-up appointment with the urologist today but he had to come here due to his increased pain. Patient denies any fever chills with this. He denies any history of kidney stones in the past.Patient denies any recent fever, chills, shortness of breath, chest pain, back pain, nausea vomiting, numbness or tingling, dysuria or hematuria, constipation or diarrhea, headaches or visual changes, or any other current symptoms. (Salina Castañeda) - Related Data Home Medications Medication Instructions Recorded Confirmed Allopurinol [Zyloprim] 300 mg PO DAILY 06/07/14 01/29/18 Aspirin 325 mg PO DAILY 06/07/14 01/29/18 Insulin NPH Hum/Reg Insulin Hm 10 unit SQ AC-SUPPER 06/07/14 01/29/18 [NovoLIN 70-30 100 UNIT/ML VIAL] Isosorbide Mononitrate [Imdur] 30 mg PO DAILY 06/07/14 01/29/18 metFORMIN HCL 1,000 mg PO BID 06/07/14 01/29/18 Ferrous Sulfate [Iron (65 MG 325 mg PO DAILY 03/07/16 01/29/18 Elemental)] Atorvastatin [Lipitor] 20 mg PO HS 07/21/17 01/29/18 Carvedilol [Coreg] 12.5 mg PO BID 07/21/17 01/29/18 Hydrocodone/Acetaminophen [[place] 1 tab PO Q6HR PRN 01/29/18 01/29/18 5-325] Previous Rx's Medication Instructions Recorded Spironolactone [Aldactone] 25 mg PO DAILY #30 tab 03/09/16 Clopidogrel [Plavix] 75 mg PO DAILY #30 tab 02/11/17 Nitroglycerin Sl Tabs [Nitrostat] 0.4 mg SUBLINGUAL Q5M PRN #50 tab 02/11/17 Insulin NPH Hum/Reg Insulin Hm 20 unit SQ AC-BRKFST #0 07/29/17 [NovoLIN 70-30 100 UNIT/ML VIAL] Tamsulosin [Flomax] 0.4 mg PO DAILY #14 cap 01/28/18 Ketorolac [Toradol] 10 mg PO Q6HR #20 tab 01/29/18 Ondansetron Odt [Zofran ODT] 4 mg PO Q8HR PRN #20 tab 01/29/18 Allergies Allergy/AdvReac Type Severity Reaction Status Date / Time No Known Allergies Allergy Verified 01/29/18 08:26 Review of Systems ROS Other: All systems not noted in ROS Statement are negative. <Anirudh Peters - Last Filed: 01/29/18 10:11> ROS Other: All systems not noted in ROS Statement are negative. <Salina Castañeda - Last Filed: 01/29/18 10:23> ROS Statement: Those systems with pertinent positive or pertinent negative responses have been documented in the HPI. Past Medical History Past Medical History: Chest Pain / Angina, Diabetes Mellitus, GERD/Reflux, Hyperlipidemia, Musculoskeletal Disorder, Pneumonia Additional Past Medical History / Comment(s): SEE H & P FOR CARDIAC HX Last Myocardial Infarction Date:: 2001 History of Any Multi-Drug Resistant Organisms: None Reported Past Surgical History: Heart Catheterization, Heart Catheterization With Stent, Joint Replacement, Orthopedic Surgery Additional Past Surgical History / Comment(s): BILAT TOTAL KNEE REPLACEMENT, RT KNEE SCOPE, BILAT CTR, (R) shoulder surgery. Past Anesthesia/Blood Transfusion Reactions: No Reported Reaction Date of Last Stent Placement:: May 2017 Past Psychological History: No Psychological Hx Reported Smoking Status: Former smoker Past Alcohol Use History: None Reported Past Drug Use History: None Reported - Past Family History Father History Unknown: Yes Mother History Unknown: Yes Additional Family Medical History / Comment(s): pt states she is and he does not know history <Salina Castañeda - Last Filed: 01/29/18 10:23> General Exam <Anirudh Peters - Last Filed: 01/29/18 10:11> Limitations: no limitations <Salina Castañeda - Last Filed: 01/29/18 10:23> - General Exam Comments Initial Comments: General: The patient is awake and alert, in no distress, and does not appear acutely ill. Eye: Pupils are equal. extra-ocular movements are intact; there is normal conjunctiva bilaterally. No signs of icterus. Ears, nose, mouth and throat: There are moist mucous membranes. Neck: The neck is supple, there is no tenderness. Cardiovascular: There is a regular rate and rhythm. No murmur, rub or gallop is appreciated. Respiratory: Lungs are clear to auscultation, respirations are non-labored, breath sounds are equal. No wheezes, stridor, rales, or rhonchi. Gastrointestinal: Soft, non-distended, non-tender abdomen without masses or organomegaly noted. There is no rebound or guarding present. No CVA tenderness. Bowel sounds are unremarkable. Back: There is no tenderness to palpation in the midline. There is no obvious deformity. No rashes noted. Musculoskeletal: Normal ROM, no tenderness, There is no pedal edema. There is no calf tenderness or swelling. Sensation intact. Pulses equal bilaterally 2+. Neurological: CN II-XII intact, There are no obvious motor or sensory deficits. Coordination appears grossly intact. Speech is normal. Skin: Skin is warm and dry and no rashes or lesions are noted. Psychiatric: Cooperative, appropriate mood & affect, normal judgment. (Salina Castañeda) Course <Anirudh Peters - Last Filed: 01/29/18 10:11> <Salina Castañeda - Last Filed: 01/29/18 10:23> Vital Signs 01/29/18 01/29/18 08:08 08:55 Temperature 98.3 F Pulse Rate 75 70 Respiratory 18 18 Rate Blood Pressure 167/82 136/62 O2 Sat by Pulse 99 97 Oximetry - Reevaluation(s) Reevaluation #1: 01/29/18 10:11 I did personally do a [id number] evaluation the patient did discuss the findings with him and his family. Patient currently is pain-free at the soft nontender to palpation. I did review the CAT scan and the report there is evidence of a ureterolithiasis as mentioned in the report. Patient does have what appears be a normal size left kidney. I did discuss the case with Dr. Berry, patient will be discharged on a course of Toradol he is to try to reschedule for tomorrow to see one of the urologist. He is to also return when necessary (Anirudh Peters) Medical Decision Making - Lab Data Result diagrams: 01/29/18 08:45 01/29/18 08:45 <Anirudh Peters - Last Filed: 01/29/18 10:11> - Lab Data Result diagrams: 01/29/18 08:45 01/29/18 08:45 <Salina Castañeda - Last Filed: 01/29/18 10:23> - Medical Decision Making 72-year-old male presents for abdominal pain. Previous CAT scan is reviewed that does show 3 mm stone. Patient also possibly has early mild diverticulitis. At this time his abdomen is soft and nontender. At this time patient's lab work has been reviewed. Patient is currently pain-free and on- call urology was contacted by Dr. Peters. At this time we like the patient to follow-up tomorrow. This and we well add Toradol. We discussed return parameters all questions. Patient is agreement this plan. (Salina Castañeda) - Lab Data Lab Results 01/29/18 01/29/18 01/29/18 Range/Units 08:37 08:45 08:45 WBC 4.8 (3.8-10.6) k/uL RBC 3.87 L (4.30-5.90) m/uL Hgb 12.5 L (13.0-17.5) gm/dL Hct 37.0 L (39.0-53.0) % MCV 95.6 (80.0-100.0) fL MCH 32.2 (25.0-35.0) pg MCHC 33.7 (31.0-37.0) g/dL RDW 13.7 (11.5-15.5) % Plt Count 71 L (150-450) k/uL Neutrophils % 75 % Lymphocytes % 17 % Monocytes % 6 % Eosinophils % 1 % Basophils % 0 % Neutrophils # 3.5 (1.3-7.7) k/uL Lymphocytes # 0.8 L (1.0-4.8) k/uL Monocytes # 0.3 (0-1.0) k/uL Eosinophils # 0.1 (0-0.7) k/uL Basophils # 0.0 (0-0.2) k/uL Sodium 141 (137-145) mmol/L Potassium 4.7 (3.5-5.1) mmol/L Chloride 104 (98-107) mmol/L Carbon Dioxide 25 (22-30) mmol/L Anion Gap 12 mmol/L BUN 16 (9-20) mg/dL Creatinine 1.38 H (0.66-1.25) mg/dL Est GFR (CKD-EPI)AfAm 60 (>60 ml/min/1.73 sqM) Est GFR (CKD-EPI)NonAf 52 (>60 ml/min/1.73 sqM) Glucose 135 H (74-99) mg/dL Calcium 9.2 (8.4-10.2) mg/dL Total Bilirubin 1.1 (0.2-1.3) mg/dL AST 27 (17-59) U/L ALT 30 (21-72) U/L Alkaline Phosphatase 79 (38-126) U/L Total Protein 6.7 (6.3-8.2) g/dL Albumin 4.1 (3.5-5.0) g/dL Urine Color Yellow Urine Appearance Clear (Clear) Urine pH 5.0 (5.0-8.0) Ur Specific [place] 1.012 (1.001-1.035) Urine Protein Negative (Negative) Urine Glucose (UA) Negative (Negative) Urine Ketones Negative (Negative) Urine Blood Moderate H (Negative) Urine Nitrite Negative (Negative) Urine Bilirubin Negative (Negative) Urine Urobilinogen <2.0 (<2.0) mg/dL Ur Leukocyte Esterase Negative (Negative) Urine RBC 22 H (0-5) /hpf Urine WBC <1 (0-5) /hpf Ur Squamous Epith Cells <1 (0-4) /hpf Urine Mucus Rare H (None) /hpf Disposition <Anirudh Peters - Last Filed: 01/29/18 10:11> Time of Disposition: 10:23 <Salina Castañeda - Last Filed: 01/29/18 10:23> Clinical Impression: Ureteral calculus Disposition: HOME SELF-CARE Condition: Stable Instructions: Ureteral Stones (ED) Additional Instructions: Please use medication as discussed. Please follow up with family doctor if symptoms have not improved over the next two days. Please return to the emergency room if your symptoms increase or worsen or for any other concerns. Prescriptions: Ketorolac [Toradol] 10 mg PO Q6HR #20 tab Ondansetron Odt [Zofran ODT] 4 mg PO Q8HR PRN #20 tab PRN Reason: Nausea Referrals: Carrie Izaguirre MD [Primary Care Provider] - 1-2 days Tomasz Berry MD [STAFF PHYSICIAN] - 1-2 days
[2018-01-29 08:57] VITALS: PULSE 70
[2018-01-29 09:06] LABS: Appearance,Urine Clear (Clear); Bilirubin,Urine Negative (Negative); Blood,Urine Moderate (Negative); Color,Urine Yellow; Glucose,Urine (UA) Negative (Negative); Ketones,Urine Negative (Negative); Leukocyte Esterase,Urine Negative (Negative); Mucus,Urine Rare /hpf; Protein,Urine Negative (Negative); RBC,Urine 22 /hpf (0-5); Specific Gravity,Urine 1.012 (1.001-1.035); Squamous Epithelial Cell,Urine <1 /hpf (0-4); Urobilinogen,Urine <2.0 mg/dL (<2.0); WBC,Urine <1 /hpf (0-5)
[2018-01-29 09:19] LABS: Basophils % (A) 0 %; Eosinophils # (A) 0.1 k/uL (0-0.7); Eosinophils % (A) 1 %; HGB 12.5 gm/dL (13.0-17.5); Lymphocytes # (A) 0.8 k/uL (1.0-4.8); Lymphocytes % (A) 17 %; MCH 32.2 pg (25.0-35.0); MCHC 33.7 g/dL (31.0-37.0); MCV 95.6 fL (80.0-100.0); Mean Platelet Volume 7.8; Monocytes # (A) 0.3 k/uL (0-1.0); Monocytes % (A) 6 %; Neutrophils # (A) 3.5 k/uL (1.3-7.7); Neutrophils % (A) 75 %; RBC 3.87 m/uL (4.30-5.90); RDW 13.7 % (11.5-15.5); WBC 4.8 k/uL (3.8-10.6)
[2018-01-29 09:25] LABS: Platelet Count 71 k/uL (150-450)
[2018-01-29 09:32] LABS: Albumin 4.1 g/dL (3.5-5.0); Calcium 9.2 mg/dL (8.4-10.2); Potassium 4.7 mmol/L (3.5-5.1); Total Bilirubin 1.1 mg/dL (0.2-1.3); Total Protein 6.7 g/dL (6.3-8.2)
[2018-01-29 10:51] VITALS: BP 155/70; TEMP 97.9
== END 2018-01-29 10:30 | disposition home or self-care (01) ==
LOC: EC 08:05
DX: N20.1 Calculus of ureter (principal); E11.9 Type 2 diabetes mellitus without complications; E78.5 Hyperlipidemia, unspecified; Z95.5 Presence of coronary angioplasty implant and graft; Z87.891 Personal history of nicotine dependence; Z79.82 Long term (current) use of aspirin; Z79.4 Long term (current) use of insulin; Z79.02 Long term (current) use of antithrombotics/antiplatelets; Z79.899 Other long term (current) drug therapy
CPT/HCPCS: 36415; 80053; 85025; 81001; 87086; 99284; 96374; 96375 ×2; 96361; J2270; J2405; J1885

== ENCOUNTER 2018-04-09 20:04 | Emergency (ER) | payer MEDICARE ==
[2018-04-09] MEDS ORDERED: methylPREDNISolone SOD SUCCI 125 MG/2 ML VIAL IM ONE (20:26)
[2018-04-09] MEDS ORDERED: IPRATROPIUM-ALBUTEROL 3 ML NEB INHALATION STA (20:26)
--- NOTE | 2018-04-09 20:31 | ED ---
URI HPI - General Chief Complaint: Upper Respiratory Infection Stated Complaint: SOB Time Seen by Provider: 04/09/18 20:18 Source: patient Mode of arrival: wheelchair Limitations: no limitations - History of Present Illness Initial Comments: 72-year-old male patient presents to the emergency department today with complaints of cough, wheezing, nasal congestion. Patient states that symptoms started on Friday, states that he has seen his primary care physician she did start him on a Z-Rubin but he has not had any improvement of his symptoms. Patient states that he has some pain in his chest when coughing. He denies any sputum production. States that he has been wheezing on and off throughout the day. He did one breathing treatment at home, but it did not help. Patient states that he feels short of breath with activity. He also has sore throat and drainage of clear nasal discharge. He denies any fever or chills. Patient denies any recent rash, abdominal pain, nausea, vomiting, diarrhea, constipation , back pain, numbness, tingling, dizziness, weakness, hematuria, dysuria, urinary urgency, urinary frequency, headache, visual changes, or any other complaints. - Related Data Home Medications Medication Instructions Recorded Confirmed RX: Allopurinol [Zyloprim] 300 mg PO DAILY 06/07/14 04/09/18 RX: Aspirin 325 mg PO DAILY 06/07/14 04/09/18 RX: Insulin NPH Hum/Reg Insulin Hm 10 unit SQ AC-SUPPER 06/07/14 04/09/18 [NovoLIN 70-30 100 UNIT/ML VIAL] RX: Isosorbide Mononitrate [Imdur] 30 mg PO DAILY 06/07/14 04/09/18 RX: metFORMIN HCL 1,000 mg PO BID 06/07/14 04/09/18 RX: Ferrous Sulfate [Iron (65 MG 325 mg PO DAILY 03/07/16 04/09/18 Elemental)] RX: Atorvastatin [Lipitor] 20 mg PO HS 07/21/17 04/09/18 RX: Carvedilol [Coreg] 12.5 mg PO BID 07/21/17 04/09/18 Previous Rx's Medication Instructions Recorded RX: Spironolactone [Aldactone] 25 mg PO DAILY #30 tab 03/09/16 RX: Insulin NPH Hum/Reg Insulin Hm 20 unit SQ AC-BRKFST #0 07/29/17 [NovoLIN 70-30 100 UNIT/ML VIAL] RX: Albuterol Inhaler [Ventolin 1 - 2 puff INHALATION RT-Q6H PRN 04/09/18 Hfa Inhaler] #1 inhaler RX: predniSONE 50 mg PO DAILY #5 tablet 04/09/18 Allergies Allergy/AdvReac Type Severity Reaction Status Date / Time No Known Allergies Allergy Verified 04/09/18 20:45 Review of Systems ROS Statement: Those systems with pertinent positive or pertinent negative responses have been documented in the HPI. ROS Other: All systems not noted in ROS Statement are negative. Past Medical History Past Medical History: Chest Pain / Angina, Diabetes Mellitus, GERD/Reflux, Hyperlipidemia, Musculoskeletal Disorder, Pneumonia Additional Past Medical History / Comment(s): SEE H & P FOR CARDIAC HX Last Myocardial Infarction Date:: 2001 History of Any Multi-Drug Resistant Organisms: None Reported Past Surgical History: Heart Catheterization, Heart Catheterization With Stent, Joint Replacement, Orthopedic Surgery Additional Past Surgical History / Comment(s): BILAT TOTAL KNEE REPLACEMENT, RT KNEE SCOPE, BILAT CTR, (R) shoulder surgery. Past Anesthesia/Blood Transfusion Reactions: No Reported Reaction Date of Last Stent Placement:: May 2017 Past Psychological History: No Psychological Hx Reported Smoking Status: Former smoker Past Alcohol Use History: None Reported Past Drug Use History: None Reported - Past Family History Father History Unknown: Yes Mother History Unknown: Yes Additional Family Medical History / Comment(s): pt states she is and he does not know history General Exam Limitations: no limitations General appearance: alert, in no apparent distress, other (This is a well- developed, well-nourished adult male patient in no acute distress. Vital signs upon presentation are temperature 99.0F, pulse 81, respirations 24, blood pressure 137/63, pulse ox 97% on room air.) Eye exam: Present: normal appearance, PERRL, EOMI. Absent: scleral icterus, conjunctival injection, periorbital swelling ENT exam: Present: normal exam, mucous membranes moist, TM's normal bilaterally Respiratory exam: Present: wheezes (scattered expiratory wheezes throughout all posterior lung dash. ). Absent: normal lung sounds bilaterally, respiratory distress, rales, rhonchi, stridor Cardiovascular Exam: Present: regular rate, normal rhythm, normal heart sounds. Absent: systolic murmur, diastolic murmur, rubs, gallop, clicks GI/Abdominal exam: Present: soft, normal bowel sounds. Absent: distended, tenderness, guarding, rebound, rigid Neurological exam: Present: alert, oriented X3, CN II-XII intact Psychiatric exam: Present: normal affect, normal mood Skin exam: Present: warm, dry, intact, normal color. Absent: rash Course Vital Signs 04/09/18 04/09/18 04/09/18 20:08 20:56 21:05 Temperature 99 F Pulse Rate 81 76 74 Respiratory 24 16 16 Rate Blood Pressure 137/63 O2 Sat by Pulse 97 Oximetry Medical Decision Making - Medical Decision Making 72-year-old male patient presented to the emergency department today for evaluation of cough and congestion. Physical examination revealed scattered expiratory wheezing throughout all posterior lung dash. Chest x-ray showed a early right bronchial pneumonia. Vital signs are stable. Patient does feel better after receiving Solu-Medrol and DuoNeb updraft treatment here in the department. I did discuss results and findings with patient and his family. He 'll be discharged home to complete azithromycin prescription. He will be given a prescription for prednisone and albuterol inhaler. He is instructed to follow -up with his primary care physician for recheck in 1-2 days. Return parameters discussed in detail. He verbalizes understanding and agreement with this plan. - Lab Data Lab Results 04/09/18 Range/Units 20:55 Influenza Type A RNA Not Detected (Not Detectd) Influenza Type B (PCR) Not Detected (Not Detectd) - EKG Data -: EKG Interpreted by Me EKG Comments: EKG obtained at 2054 shows normal sinus rhythm with a left axis deviation, nonspecific intraventricular block, multiple infarcts with indeterminate age. Ventricular rate is 69, P return to the 182, QRS duration 132, QT 420, QTC 450. EKG was compared to a reading from 01/13/2018, changes appear chronic. - Radiology Data Radiology results: report reviewed, image reviewed Two-view x-ray of the chest shows right perihilar added opacities suggesting early probable pneumonia. Lungs are otherwise clear. Pleural spaces are negative. Cardiac silhouette is mildly enlarged. Skeletal structures are intact without focal findings. The soft tissues are unremarkable. Impression by Dr. Leslee Gallardo shows suspected right perihilar pneumonia suggest six-week follow-up chest x-ray to prove resolution. Disposition Clinical Impression: Bronchopneumonia, Upper respiratory infection Disposition: HOME SELF-CARE Condition: Good Instructions: Upper Respiratory Infection (ED), Pneumonia (ED) Additional Instructions: Complete antibiotic prescription. Follow-up with her primary care physician for recheck in 1-2 days. Return here immediately for any new, worsening, or concerning symptoms. Prescriptions: RX: Albuterol Inhaler [Ventolin Hfa Inhaler] 1 - 2 puff INHALATION RT-Q6H PRN # 1 inhaler PRN Reason: Wheezing RX: predniSONE 50 mg PO DAILY #5 tablet Is patient prescribed a controlled substance at d/c from ED?: No Referrals: Carrie Izaguirre MD [Primary Care Provider] - 1-2 days Time of Disposition: 22:17
--- NOTE | 2018-04-09 22:12 | XR ---
EXAMINATION: XR chest 2V DATE AND TIME: 04/09/2018 8:39 PM ORDERING PROVIDER: Carmela Chauhan CLINICAL INDICATION: Upper respiratory infection, assess for pneumonia. TECHNIQUE: AP portable upright standing, there COMPARISON: 01/13/2018 DESCRIPTION: There is right perihilar added opacity suggesting early bronchopneumonia. The lungs are otherwise marya ar. The pleural spaces are negative. The cardiac silhouette is mildly enlarged. The skeletal structures are intact without focal findings. The soft tissues are unremarkable. IMPRESSION: Suspect right perihilar pneumonia; suggest 6 week follow-up PA and lateral chest radiographs to prove resolution.
[2018-04-09 22:32] VITALS: BP 144/68; PULSE 71; RESP 24; TEMP 98.9
== END 2018-04-09 22:32 | disposition home or self-care (01) ==
LOC: EC 20:04
DX: J18.0 Bronchopneumonia, unspecified organism (principal); J06.9 Acute upper respiratory infection, unspecified; E11.9 Type 2 diabetes mellitus without complications; I20.9 Angina pectoris, unspecified; I25.2 Old myocardial infarction; Z96.653 Presence of artificial knee joint, bilateral; Z95.5 Presence of coronary angioplasty implant and graft; Z87.891 Personal history of nicotine dependence; Z98.890 Other specified postprocedural states; Z79.4 Long term (current) use of insulin; Z79.82 Long term (current) use of aspirin; Z79.899 Other long term (current) drug therapy
CPT/HCPCS: 94640; 93005; 87502; 71046; 99284; 96372; J2930

== ENCOUNTER 2018-06-23 11:44 | Emergency (ER) | payer MEDICARE ==
[2018-06-23] MEDS ORDERED: MORPHINE SULFATE 4 MG/ML SYRINGE IVP STA ×2 (12:13→14:52)
[2018-06-23] MEDS ORDERED: ONDANSETRON 4 MG/2 ML VIAL IVP STA (12:13)
[2018-06-23] MEDS ORDERED: SODIUM CHLORIDE 0.9% 1,000 ML IV STA (12:13)
--- NOTE | 2018-06-23 12:16 | ED ---
General Adult HPI - General Chief complaint: Abdominal Pain Stated complaint: abd pain Time Seen by Provider: 06/23/18 12:08 Source: patient, EMS, RN notes reviewed Mode of arrival: EMS Limitations: no limitations - History of Present Illness Initial comments: Patient 72-year-old male presented to the emergency room today with a chief complaint of abdominal pain that began this morning. Patient does admit to a constant pain located in the right lower quadrant. Patient states pain is sharp and achy. Patient does admit to an episode of nausea vomiting. Denies any radiation. Denies any other complaints or symptoms currently. Patient denies any recent fever, chills, shortness of breath, chest pain, back pain, numbness or tingling, dysuria or hematuria, constipation or diarrhea, headaches or visual changes, or any other complaints. - Related Data Home Medications Medication Instructions Recorded Confirmed Allopurinol [Zyloprim] 300 mg PO DAILY 06/07/14 06/23/18 Aspirin 325 mg PO DAILY 06/07/14 06/23/18 Insulin NPH Hum/Reg Insulin Hm 10 unit SQ AC-SUPPER 06/07/14 06/23/18 [NovoLIN 70-30 100 UNIT/ML VIAL] Isosorbide Mononitrate [Imdur] 30 mg PO DAILY 06/07/14 06/23/18 metFORMIN HCL 1,000 mg PO BID 06/07/14 06/23/18 Ferrous Sulfate [Iron (65 MG 325 mg PO DAILY 03/07/16 06/23/18 Elemental)] Atorvastatin [Lipitor] 20 mg PO HS 07/21/17 06/23/18 Carvedilol [Coreg] 12.5 mg PO BID 07/21/17 06/23/18 Previous Rx's Medication Instructions Recorded Spironolactone [Aldactone] 25 mg PO DAILY #30 tab 03/09/16 Insulin NPH Hum/Reg Insulin Hm 20 unit SQ AC-BRKFST #0 07/29/17 [NovoLIN 70-30 100 UNIT/ML VIAL] Albuterol Inhaler [Ventolin Hfa 1 - 2 puff INHALATION RT-Q6H PRN 04/09/18 Inhaler] #1 inhaler Hydrocodone/Acetaminophen [[place] 1 each PO Q6HR PRN #12 tab 06/23/18 5-325] Tamsulosin [Flomax] 0.4 mg PO DAILY #10 cap 06/23/18 Allergies Allergy/AdvReac Type Severity Reaction Status Date / Time No Known Allergies Allergy Verified 06/23/18 12:21 Review of Systems ROS Statement: Those systems with pertinent positive or pertinent negative responses have been documented in the HPI. ROS Other: All systems not noted in ROS Statement are negative. Past Medical History Past Medical History: Chest Pain / Angina, Diabetes Mellitus, GERD/Reflux, Hyperlipidemia, Musculoskeletal Disorder, Pneumonia Additional Past Medical History / Comment(s): SEE H & P FOR CARDIAC HX Last Myocardial Infarction Date:: 2001 History of Any Multi-Drug Resistant Organisms: None Reported Past Surgical History: Heart Catheterization, Heart Catheterization With Stent, Joint Replacement, Orthopedic Surgery Additional Past Surgical History / Comment(s): BILAT TOTAL KNEE REPLACEMENT, RT KNEE SCOPE, BILAT CTR, (R) shoulder surgery. Past Anesthesia/Blood Transfusion Reactions: No Reported Reaction Date of Last Stent Placement:: May 2017 Past Psychological History: No Psychological Hx Reported Smoking Status: Former smoker Past Alcohol Use History: None Reported Past Drug Use History: None Reported - Past Family History Father History Unknown: Yes Mother History Unknown: Yes Additional Family Medical History / Comment(s): pt states she is and he does not know history General Exam - General Exam Comments Initial Comments: General: The patient is awake and alert, in no distress, and does not appear acutely ill. Eye: Pupils are equal, round and reactive to light, extra-ocular movements are intact. No nystagmus. There is normal conjunctiva bilaterally. No signs of icterus. Ears, nose, mouth and throat: There are moist mucous membranes and no oral lesions. Neck: The neck is supple, there is no tenderness or JVD. Cardiovascular: There is a regular rate and rhythm. No murmur, rub or gallop is appreciated. Respiratory: Lungs are clear to auscultation, respirations are non-labored, breath sounds are equal. No wheezes, stridor, rales, or rhonchi. Gastrointestinal: Soft on palpation. Patient does have tenderness right lower quadrant. No rebound, guarding or CVA tenderness. Musculoskeletal: Normal ROM, no tenderness. Strength 5/5. Sensation intact. Pulses equal bilaterally 2+. Neurological: A&O x 3. CN II-XII intact, There are no obvious motor or sensory deficits. Coordination appears grossly intact. Speech is normal. Skin: Skin is warm and dry and no rashes or lesions are noted. Psychiatric: Cooperative, appropriate mood & affect, normal judgment. Limitations: no limitations Course Vital Signs 06/23/18 11:48 Temperature 98.3 F Pulse Rate 67 Respiratory 18 Rate Blood Pressure 149/71 O2 Sat by Pulse 99 Oximetry Medical Decision Making - Medical Decision Making Patient's labs been reviewed and does show blood in the urine. No signs of infection. Patient's CT of abdomen and pelvis does show a 6 mm stone in the right side with moderate hydronephrosis. There is some perinephric stranding. Patient's currently resting comfort. Remaining labs are been reviewed. platelets 80 which is similar to previous labs. Results were discussed with the patient. He does admit that his nose that he's had "stones" in the past. He was unsure if it was a gallstone or kidney stone. He does admit that he has seen a urologist but is unsure the name. Patient is advised to follow-up over the next 2 days will be given medications of [place], Flomax for his symptoms. Please return if symptoms increase or worsen. He states understanding and is in agreement. - Lab Data Result diagrams: 06/23/18 12:34 06/23/18 12:34 Lab Results 06/23/18 06/23/18 06/23/18 Range/Units 12:34 12:34 12:34 WBC 5.5 (3.8-10.6) k/uL RBC 3.79 L (4.30-5.90) m/uL Hgb 12.1 L (13.0-17.5) gm/dL Hct 36.2 L (39.0-53.0) % MCV 95.5 (80.0-100.0) fL MCH 31.9 (25.0-35.0) pg MCHC 33.4 (31.0-37.0) g/dL RDW 13.8 (11.5-15.5) % Plt Count 80 L (150-450) k/uL Neutrophils % 72 % Lymphocytes % 17 % Monocytes % 7 % Eosinophils % 2 % Basophils % 0 % Neutrophils # 3.9 (1.3-7.7) k/uL Lymphocytes # 0.9 L (1.0-4.8) k/uL Monocytes # 0.4 (0-1.0) k/uL Eosinophils # 0.1 (0-0.7) k/uL Basophils # 0.0 (0-0.2) k/uL Sodium 141 (137-145) mmol/L Potassium 4.0 (3.5-5.1) mmol/L Chloride 109 H (98-107) mmol/L Carbon Dioxide 25 (22-30) mmol/L Anion Gap 7 mmol/L BUN 14 (9-20) mg/dL Creatinine 0.97 (0.66-1.25) mg/dL Est GFR (CKD-EPI)AfAm >90 (>60 ml/min/1.73 sqM) Est GFR (CKD-EPI)NonAf 79 (>60 ml/min/1.73 sqM) Glucose 114 H (74-99) mg/dL Calcium 9.1 (8.4-10.2) mg/dL Total Bilirubin 1.0 (0.2-1.3) mg/dL AST 38 (17-59) U/L ALT 39 (21-72) U/L Alkaline Phosphatase 73 (38-126) U/L Total Protein 6.2 L (6.3-8.2) g/dL Albumin 3.9 (3.5-5.0) g/dL Amylase 46 (30-110) U/L Lipase 48 (23-300) U/L Urine Color Yellow Urine Appearance Clear (Clear) Urine pH 5.0 (5.0-8.0) Ur Specific Arabi 1.021 (1.001-1.035) Urine Protein Trace H (Negative) Urine Glucose (UA) Negative (Negative) Urine Ketones Negative (Negative) Urine Blood Large H (Negative) Urine Nitrite Negative (Negative) Urine Bilirubin Negative (Negative) Urine Urobilinogen <2.0 (<2.0) mg/dL Ur Leukocyte Esterase Negative (Negative) Urine RBC 17 H (0-5) /hpf Urine WBC 2 (0-5) /hpf Ur Squamous Epith Cells 1 (0-4) /hpf Hyaline Casts 1 (0-2) /lpf Urine Mucus Rare H (None) /hpf Disposition Clinical Impression: Kidney stone Disposition: HOME SELF-CARE Condition: Good Instructions: Kidney Stones (ED) Additional Instructions: Please follow-up with family doctor or neurologist over the next 2 days. Please use medications as prescribed and return to emergency room if any symptoms increase or worsen or for any other concerns. Prescriptions: Hydrocodone/Acetaminophen [[place] 5-325] 1 each PO Q6HR PRN #12 tab PRN Reason: Pain Tamsulosin [Flomax] 0.4 mg PO DAILY #10 cap Is patient prescribed a controlled substance at d/c from ED?: Yes When asked, does pt state using other controlled substances?: No If prescribed controlled substance>3 days was MAPS reviewed?: Prescribed <3 Days Referrals: Carrie Izaguirre MD [Primary Care Provider] - 1-2 days Amado Restrepo MD [STAFF PHYSICIAN] - 1-2 days Time of Disposition: 15:07
[2018-06-23 12:50] LABS: Basophils % (A) 0 %; Eosinophils # (A) 0.1 k/uL (0-0.7); Eosinophils % (A) 2 %; HCT 36.2 % (39.0-53.0); HGB 12.1 gm/dL (13.0-17.5); Lymphocytes # (A) 0.9 k/uL (1.0-4.8); Lymphocytes % (A) 17 %; MCH 31.9 pg (25.0-35.0); MCHC 33.4 g/dL (31.0-37.0); MCV 95.5 fL (80.0-100.0); Mean Platelet Volume 7.8; Monocytes # (A) 0.4 k/uL (0-1.0); Monocytes % (A) 7 %; Neutrophils # (A) 3.9 k/uL (1.3-7.7); Neutrophils % (A) 72 %; RBC 3.79 m/uL (4.30-5.90); RDW 13.8 % (11.5-15.5); WBC 5.5 k/uL (3.8-10.6)
[2018-06-23 12:55] LABS: Platelet Count 80 k/uL (150-450)
[2018-06-23 12:57] LABS: Appearance,Urine Clear (Clear); Bilirubin,Urine Negative (Negative); Blood,Urine Large (Negative); Color,Urine Yellow; Glucose,Urine (UA) Negative (Negative); Hyaline Casts,Urine 1 /lpf (0-2); Ketones,Urine Negative (Negative); Leukocyte Esterase,Urine Negative (Negative); Mucus,Urine Rare /hpf; Nitrite,Urine Negative (Negative); Protein,Urine Trace (Negative); RBC,Urine 17 /hpf (0-5); Specific Gravity,Urine 1.021 (1.001-1.035); Squamous Epithelial Cell,Urine 1 /hpf (0-4); Urobilinogen,Urine <2.0 mg/dL (<2.0); WBC,Urine 2 /hpf (0-5)
[2018-06-23 12:58] LABS: ALT 39 U/L (21-72); AST 38 U/L (17-59); Albumin 3.9 g/dL (3.5-5.0); Alkaline Phosphatase 73 U/L (38-126); Amylase 46 U/L (30-110); Anion Gap 7 mmol/L; Blood Urea Nitrogen 14 mg/dL (9-20); Calcium 9.1 mg/dL (8.4-10.2); Carbon Dioxide 25 mmol/L (22-30); Chloride 109 mmol/L (98-107); Glucose 114 mg/dL (74-99); Lipase 48 U/L (23-300); Sodium 141 mmol/L (137-145); Total Protein 6.2 g/dL (6.3-8.2)
--- NOTE | 2018-06-23 14:33 | CT ---
EXAMINATION TYPE: CT abdomen pelvis wo con DATE OF EXAM: 06/23/2018 COMPARISON: 01/28/2018 INDICATION: RLQ pain DLP: 1726.5 mGycm, Automated exposure control for dose reduction was used. CONTRAST: 0 mL of Isovue 300. Study performed without Oral Contrast TECHNIQUE: Axial images were obtained from above the diaphragm to the pubic rami in the axial plane a t 5 mm thick sections. Reconstructed images are reviewed on the computer in the coronal plane. FINDINGS: Limited CT sections are obtained the lung bases. The lung bases are clear. Coronary artery calcific ations present. Small hiatal hernia may be present. CT ABDOMEN: Liver: Normal Spleen: Normal Pancreas: Normal Adrenal glands: The adrenal glands are normal. Gallbladder: Normal Kidneys: There is a 0.6 cm calcification at the distal right ureter just above the right ureterovesic al junction. Stranding is adjacent to the ureteral course. There is mild hydronephrosis. Perinephric stranding is present. Vascular calcification is within the left kidney. No masses or cysts are eviden t within the kidneys. Aorta: Vascular calcification is within the aorta. There is distal abdominal fusiform prominence abo ve the bifurcation with an AP diameter of 2.4 cm. Vascular calcification extends into the iliac vesse ls. Inferior vena cava: Normal. CT PELVIS: Loops of bowel within the abdomen and pelvis are normal. Diverticular changes are within the sigmoi d colon. There are loops of bowel which are incompletely distended or lack oral contrast limiting th eir evaluation. Appendix: Not identified. No suspicious inflammatory changes evident. Urinary bladder: Normal. Genitourinary structures: Prostate contains calcification. Osseous structures: No suspicious lytic or sclerotic lesions. Facet degenerative changes are present. IMPRESSIONS: 1. 0.6 cm distal right ureteral calcification with mild right hydroureter and hydronephrosis. Perine phric stranding and stranding adjacent to the ureter is present.
[2018-06-23 15:12] VITALS: BP 169/82; PULSE 69; RESP 20; TEMP 98.2
== END 2018-06-23 15:22 | disposition home or self-care (01) ==
LOC: EC 11:44
DX: N13.2 Hydronephrosis with renal and ureteral calculous obstruction (principal); E11.9 Type 2 diabetes mellitus without complications; E78.5 Hyperlipidemia, unspecified; Z95.818 Presence of other cardiac implants and grafts; Z95.5 Presence of coronary angioplasty implant and graft; Z96.653 Presence of artificial knee joint, bilateral; Z87.891 Personal history of nicotine dependence; Z79.82 Long term (current) use of aspirin; Z79.4 Long term (current) use of insulin; Z79.899 Other long term (current) drug therapy
CPT/HCPCS: 36415; 80053; 82150; 83690; 85025; 81001; 87086; 74176; 99285; 96374; 96375; 96376; 96361 ×3; J2270; J2405

== ENCOUNTER 2018-07-09 12:22 | Emergency (ER) | payer MEDICARE ==
[2018-07-09 12:34] VITALS: TEMP 98.1
[2018-07-09] MEDS ORDERED: HYDROcodone/APAP 5-325MG 1 EACH TAB PO STA (13:06)
[2018-07-09] MEDS ORDERED: DIPH,PERTUS(ACELL)TETVAC-LF 0.5 ML VIAL IM ONE (13:16)
--- NOTE | 2018-07-09 13:18 | ED ---
Fall HPI - General Chief Complaint: Fall Stated Complaint: Fall Time Seen by Provider: 07/09/18 12:57 Source: patient, EMS Mode of arrival: EMS - History of Present Illness Initial Comments: 72-year-old male patient presents to emergency department today via EMS for evaluation after experiencing a fall. Patient states that he got out of the car was walking into [place] when he slipped and fell in the rain. Patient states he did strike his head on a cement pole and struck his left ribs on a cement parking block. Patient states that he is experiencing significant left rib pain and left knee pain. Patient states he is unsure if he passed out or not. Daughter is present and reports that patient kept closing his eyes and complaining of being nauseous after the fall. Patient denies any shortness of breath but states it hurts to take a deep breath. Denies any cough or hemoptysis. Patient does have history of knee replacement to the left knee. Denies any lower extremity numbness or tingling. Patient denies any headache, neck pain, back pain, dizziness, weakness, abdominal pain, current nausea, vomiting, or difficulties with bowel movements or urination. - Related Data Home Medications Medication Instructions Recorded Confirmed Allopurinol [Zyloprim] 300 mg PO DAILY 06/07/14 07/09/18 Aspirin 325 mg PO DAILY 06/07/14 07/09/18 Insulin NPH Hum/Reg Insulin Hm 10 unit SQ AC-SUPPER 06/07/14 07/09/18 [NovoLIN 70-30 100 UNIT/ML VIAL] Isosorbide Mononitrate [Imdur] 30 mg PO DAILY 06/07/14 07/09/18 metFORMIN HCL 1,000 mg PO BID 06/07/14 07/09/18 Ferrous Sulfate [Iron (65 MG 325 mg PO DAILY 03/07/16 07/09/18 Elemental)] Atorvastatin [Lipitor] 20 mg PO HS 07/21/17 07/09/18 Carvedilol [Coreg] 12.5 mg PO BID 07/21/17 07/09/18 Acetaminophen [Tylenol] 1,000 mg PO HS PRN 07/09/18 07/09/18 Previous Rx's Medication Instructions Recorded Spironolactone [Aldactone] 25 mg PO DAILY #30 tab 03/09/16 Insulin NPH Hum/Reg Insulin Hm 20 unit SQ AC-BRKFST #0 09/05/17 [NovoLIN 70-30 100 UNIT/ML VIAL] Allergies Allergy/AdvReac Type Severity Reaction Status Date / Time No Known Allergies Allergy Verified 07/09/18 14:40 Review of Systems ROS Statement: Those systems with pertinent positive or pertinent negative responses have been documented in the HPI. ROS Other: All systems not noted in ROS Statement are negative. Past Medical History Past Medical History: Chest Pain / Angina, Diabetes Mellitus, GERD/Reflux, Hyperlipidemia, Musculoskeletal Disorder, Pneumonia Additional Past Medical History / Comment(s): SEE H & P FOR CARDIAC HX Last Myocardial Infarction Date:: 2001 History of Any Multi-Drug Resistant Organisms: None Reported Past Surgical History: Heart Catheterization, Heart Catheterization With Stent, Joint Replacement, Orthopedic Surgery Additional Past Surgical History / Comment(s): BILAT TOTAL KNEE REPLACEMENT, RT KNEE SCOPE, BILAT CTR, (R) shoulder surgery. Past Anesthesia/Blood Transfusion Reactions: No Reported Reaction Date of Last Stent Placement:: May 2017 Past Psychological History: No Psychological Hx Reported Smoking Status: Former smoker Past Alcohol Use History: None Reported Past Drug Use History: None Reported - Past Family History Father History Unknown: Yes Mother History Unknown: Yes Additional Family Medical History / Comment(s): pt states she is and he does not know history General Exam Limitations: no limitations General appearance: alert, in no apparent distress, other (This is a well- developed, obese adult male patient in no acute distress. Vital signs upon presentation are temperature 98.1F, pulse 66, respirations 18, blood pressure 126/60, pulse ox 98% on room air.) Head exam: Present: atraumatic, normocephalic, normal inspection Eye exam: Present: normal appearance, PERRL, EOMI. Absent: scleral icterus, conjunctival injection, periorbital swelling ENT exam: Present: normal exam, normal oropharynx, mucous membranes moist, TM's normal bilaterally Neck exam: Present: normal inspection, full ROM, other (Nontender, no step-off, no deformity to firm midline palpation of the posterior cervical spine. Full range of motion without pain or limitation.). Absent: tenderness, meningismus, lymphadenopathy Respiratory exam: Present: normal lung sounds bilaterally, chest wall tenderness (Left lateral rib tenderness). Absent: respiratory distress, wheezes , rales, rhonchi, stridor Cardiovascular Exam: Present: regular rate, normal rhythm, normal heart sounds. Absent: systolic murmur, diastolic murmur, rubs, gallop, clicks GI/Abdominal exam: Present: soft, normal bowel sounds. Absent: distended, tenderness, guarding, rebound, rigid Extremities exam: Present: full ROM, tenderness (Left anterior knee tenderness) , normal capillary refill, other (2 small abrasions noted to the left anterior knee. Bleeding is controlled. Remainder of skin is pink, warm, and dry. Cap refills less than 3 seconds. Pedal posttibial pulses are 2+ and equal bilaterally.). Absent: normal inspection, pedal edema, joint swelling, calf tenderness Back exam: Present: normal inspection, other (Nontender, no step-off, no deformity to firm midline palpation of the thoracic and lumbar vertebrae. Full range of motion without pain or limitation.). Absent: CVA tenderness (R), CVA tenderness (L), vertebral tenderness Neurological exam: Present: alert, oriented X3, CN II-XII intact Psychiatric exam: Present: normal affect, normal mood Skin exam: Present: warm, dry, intact, normal color. Absent: rash Course Vital Signs 07/09/18 07/09/18 07/09/18 12:31 14:00 15:25 Temperature 98.1 F Pulse Rate 66 87 68 Respiratory 18 14 16 Rate Blood Pressure 126/60 142/87 140/65 O2 Sat by Pulse 98 97 97 Oximetry Medical Decision Making - Medical Decision Making 72-year-old male patient presents emergency department today for evaluation of right knee pain, left rib pain, and headache after expressing a fall today. Physical examination did reveal abrasions to the left anterior knee. Tenderness over the left lateral ribs. Patient's lung sounds are clear and equal bilaterally. Patient is in no respiratory distress. CT of the brain and C-spine was negative for any acute intracranial or acute cervical osseous abnormalities. X-rays of the left ribs, chest, and left knee were negative for any acute abnormalities. I did discuss findings and results with the patient. We did discuss that his symptoms are most likely related to left rib contusion and contusion of the left knee. We discussed signs and symptoms of worsening head injury. He is instructed to follow-up with his primary care physician for recheck tomorrow. Return parameters were discussed in detail. Patient is discharged in stable condition. He verbalizes understanding and agrees with this plan. - Radiology Data Radiology results: report reviewed, image reviewed 3 views of the left knee are obtained. There is no acute fracture dislocation noted. Total knee arthroplasty is in place. The overlying soft tissues appears unremarkable. Impression by Dr. Santiago shows no acute fracture dislocation. 4 views of the ribs and single view of the chest are obtained. The lungs are clear. No evidence for pneumothorax. No evidence for focal contusion. Mediastinal structures are midline. Evaluation of the ribs fails to demonstrate evidence for displaced rib fracture secondary sign of rib fracture. Impression by Dr. Santiago shows negative study. CT of the brain and C-spine without contrast are obtained. Report was reviewed in its entirety. Impression by Dr. Santiago shows age-related atrophic and chronic small vessel ischemic change without acute intracranial process seen at this time. No evidence for acute fracture or subluxation of the cervical spine. Disposition Clinical Impression: Abrasion of knee, left, Head injury, Contusion of rib on left side Disposition: HOME SELF-CARE Condition: Good Instructions: Fall Prevention for Older Adults (ED), Head Injury (ED), Abrasion (ED), Rib Contusion (ED) Additional Instructions: Take Tylenol and Motrin for pain control. Use incentive spirometer 10 times an hour while awake. Keep wounds clean and dry. Monitor for signs or symptoms of worsening head injury including but not limited to dizziness, weakness, confusion, severe headache, vomiting, numbness, or tingling. Follow-up with your primary care physician for recheck in 1-2 days. Return here immediately for any new, worsening, or concerning symptoms. Is patient prescribed a controlled substance at d/c from ED?: No Referrals: Carrie Izaguirre MD [Primary Care Provider] - 1-2 days Time of Disposition: 15:11
--- NOTE | 2018-07-09 14:17 | CT ---
EXAMINATION TYPE: CT brain greg savage DATE OF EXAM: 07/09/2018 COMPARISON: None HISTORY: Fall CT DLP: [address] of the brain was performed. The ventricles, basal cisterns and sulci overlying the cerebral convexities demonstrate mild enlargem ent. There is no evidence for intracranial hemorrhage or sulcal effacement. There is decreased attenuatio n about the periventricular white matter and deep white matter of both cerebral hemispheres, compatib le with chronic small vessel ischemia. No mass effects are seen. If symptoms persist consider MRI. Osseous calvarium is intact. IMPRESSION: 1. Age related atrophic and chronic small vessel ischemic change without acute intracranial process seen at this time. CT Cervical Spine: Unenhanced CT of the cervical spine was performed with bone and soft tissue window settings submitted . Coronal and sagittal reconstruction is obtained. There is normal alignment and prevertebral soft tissues. No evidence for acute cervical fracture . Scattered degenerative disc disease and spondylosis. Biapical scarring. IMPRESSION: 1. No evidence for acute fracture or subluxation of the cervical spine.
--- NOTE | 2018-07-09 14:26 | XR ---
EXAMINATION TYPE: XR knee complete LT DATE OF EXAM: 07/09/2018 CLINICAL HISTORY: pain TECHNIQUE: Three views of the left knee are obtained. COMPARISON: None. FINDINGS: There is no acute fracture/dislocation. Total knee arthroplasty is in place. The overlying soft tissue appears unremarkable. IMPRESSION: There is no acute fracture or dislocation ICD 10 NO FRACTURE, INITIAL EVALUATION
--- NOTE | 2018-07-09 14:42 | XR ---
EXAMINATION TYPE: XR ribs LT w pa chest xray DATE OF EXAM: 07/09/2018 COMPARISON: 04/09/2018 HISTORY: Pain TECHNIQUE: Single view of the chest 4 views of the ribs are submitted. FINDINGS: The lungs are clear. No Evidence for pneumothorax. No evidence for focal contusion. Medi astinal structures are midline. Evaluation of the ribs fails to demonstrate evidence for displaced r ib fracture or secondary sign of rib fracture. IMPRESSION: Negative study
[2018-07-09 15:26] VITALS: BP 140/65; PULSE 68; RESP 16
== END 2018-07-09 15:15 | disposition home or self-care (01) ==
LOC: EC 12:22
DX: S20.212A Contusion of left front wall of thorax, initial encounter (principal); S80.212A Abrasion, left knee, initial encounter; S09.90XA Unspecified injury of head, initial encounter; I67.82 Cerebral ischemia; G31.9 Degenerative disease of nervous system, unspecified; E78.5 Hyperlipidemia, unspecified; E11.9 Type 2 diabetes mellitus without complications; E66.9 Obesity, unspecified; Z87.891 Personal history of nicotine dependence; Z79.4 Long term (current) use of insulin; Z79.82 Long term (current) use of aspirin; Z79.899 Other long term (current) drug therapy; Z86.79 Personal history of other diseases of the circulatory system; Z23 Encounter for immunization; Z68.39 Body mass index [BMI] 39.0-39.9, adult; Z96.653 Presence of artificial knee joint, bilateral; W01.198A Fall on same level from slipping, tripping and stumbling with subsequent striking against other object, initial encounter; Y93.01 Activity, walking, marching and hiking; Y92.89 Other specified places as the place of occurrence of the external cause
CPT/HCPCS: 70450; 72125; 90471; 90715; 99284

== ENCOUNTER 2018-07-18 09:41 | Inpatient (IN) | payer MEDICARE ==
[2018-07-18] MEDS ORDERED: SODIUM CHLORIDE 0.9% 500 ML IV STA (10:05)
[2018-07-18] MEDS ORDERED: MORPHINE SULFATE 4 MG/ML SYRINGE IV STA (10:05)
[2018-07-18] MEDS ORDERED: ONDANSETRON 4 MG/2 ML VIAL IVP STA (10:05)
--- NOTE | 2018-07-18 10:10 | ED ---
General Adult HPI - General Chief complaint: Back Pain/Injury Stated complaint: fall 3 days ago Time Seen by Provider: 07/18/18 09:58 Source: patient, EMS, RN notes reviewed Mode of arrival: EMS Limitations: physical limitation - History of Present Illness Initial comments: 72-year-old male presents emergency Department with chief complaint of back pain. Patient states that he fell last Friday at the [facility] states that he hit his left side of his ribs and had pain in that region states symptoms are getting better up until 's developed low back pain which is severe. Patient states that the pain is unbearable at times. Patient denies any known fever or chills. He states he's had no nausea vomiting diarrhea constipation. The pain is worse with movement he did try his Cameron but did not have much relief of symptoms. He denies any bowel bladder incontinence or retention. Denies any lower extremity paresthesias. Patient states that his ribs do not hurt as bad as low back he also complains of left foot toe pain. - Related Data Home Medications Medication Instructions Recorded Confirmed Allopurinol [Zyloprim] 300 mg PO DAILY 06/07/14 07/09/18 Aspirin 325 mg PO DAILY 06/07/14 07/09/18 Insulin NPH Hum/Reg Insulin Hm 10 unit SQ AC-SUPPER 06/07/14 07/09/18 [NovoLIN 70-30 100 UNIT/ML VIAL] Isosorbide Mononitrate [Imdur] 30 mg PO DAILY 06/07/14 07/09/18 metFORMIN HCL 1,000 mg PO BID 06/07/14 07/09/18 Ferrous Sulfate [Iron (65 MG 325 mg PO DAILY 03/07/16 07/09/18 Elemental)] Atorvastatin [Lipitor] 20 mg PO HS 07/21/17 07/09/18 Carvedilol [Coreg] 12.5 mg PO BID 07/21/17 07/09/18 Acetaminophen [Tylenol] 1,000 mg PO HS PRN 07/09/18 07/09/18 Previous Rx's Medication Instructions Recorded Spironolactone [Aldactone] 25 mg PO DAILY #30 tab 03/09/16 Insulin NPH Hum/Reg Insulin Hm 20 unit SQ AC-BRKFST #0 07/29/17 [NovoLIN 70-30 100 UNIT/ML VIAL] Allergies Allergy/AdvReac Type Severity Reaction Status Date / Time No Known Allergies Allergy Verified 07/09/18 14:40 Review of Systems ROS Statement: Those systems with pertinent positive or pertinent negative responses have been documented in the HPI. ROS Other: All systems not noted in ROS Statement are negative. Past Medical History Past Medical History: Chest Pain / Angina, Diabetes Mellitus, GERD/Reflux, Hyperlipidemia, Musculoskeletal Disorder, Pneumonia Additional Past Medical History / Comment(s): SEE H & P FOR CARDIAC HX Last Myocardial Infarction Date:: 2001 History of Any Multi-Drug Resistant Organisms: None Reported Past Surgical History: Heart Catheterization, Heart Catheterization With Stent, Joint Replacement, Orthopedic Surgery Additional Past Surgical History / Comment(s): BILAT TOTAL KNEE REPLACEMENT, RT KNEE SCOPE, BILAT CTR, (R) shoulder surgery. Past Anesthesia/Blood Transfusion Reactions: No Reported Reaction Date of Last Stent Placement:: May 2017 Past Psychological History: No Psychological Hx Reported Smoking Status: Former smoker Past Alcohol Use History: None Reported Past Drug Use History: None Reported - Past Family History Father History Unknown: Yes Mother History Unknown: Yes Additional Family Medical History / Comment(s): pt states she is and he does not know history General Exam Limitations: physical limitation General appearance: alert, in no apparent distress Head exam: Present: atraumatic, normocephalic, normal inspection ENT exam: Present: normal exam, normal oropharynx, mucous membranes moist Neck exam: Present: normal inspection, full ROM. Absent: tenderness, meningismus, lymphadenopathy Respiratory exam: Present: normal lung sounds bilaterally, chest wall tenderness (Mild left-sided). Absent: respiratory distress, wheezes, rales, rhonchi, stridor Cardiovascular Exam: Present: regular rate, normal rhythm, normal heart sounds. Absent: systolic murmur, diastolic murmur, rubs, gallop, clicks GI/Abdominal exam: Present: soft, normal bowel sounds. Absent: distended, tenderness, guarding, rebound, rigid Extremities exam: Present: normal inspection, full ROM, normal capillary refill. Absent: tenderness, pedal edema, joint swelling, calf tenderness Back exam: Present: tenderness (Lumbar region primarily on the left side), paraspinal tenderness, vertebral tenderness. Absent: full ROM Neurological exam: Present: alert, oriented X3, CN II-XII intact, reflexes normal. Absent: motor sensory deficit Skin exam: Present: warm, dry, intact, normal color. Absent: rash Course Vital Signs 07/18/18 09:47 Temperature 100.5 F H Pulse Rate 79 Respiratory 18 Rate Blood Pressure 159/70 O2 Sat by Pulse 97 Oximetry EKG Findings - EKG Comments: EKG Findings:: EKG performed at 1022 normal sinus rhythm with left axis deviation and right bundle, rate of 74 MO 176 QRS 134 QT/QTC 398/441 Medical Decision Making - Medical Decision Making 72-year-old male presents from for left low back mild abdominal discomfort. Patient said continuation of pain while he alleviated with IV pain meds. Patient had CT which shows thickening of the rectosigmoid joint there is no acute fracture of his lumbar spine after a fall. Patient's fall was over one week ago. Patient symptoms related to possible infection. Patiently admitted on antibiotics, pain control. - Lab Data Result diagrams: 07/18/18 10:15 07/18/18 10:15 Lab Results 07/18/18 07/18/18 07/18/18 Range/Units 10:15 10:15 10:15 WBC 5.6 (3.8-10.6) k/uL RBC 3.96 L (4.30-5.90) m/uL Hgb 12.8 L (13.0-17.5) gm/dL Hct 38.1 L (39.0-53.0) % MCV 96.4 (80.0-100.0) fL MCH 32.4 (25.0-35.0) pg MCHC 33.6 (31.0-37.0) g/dL RDW 13.9 (11.5-15.5) % Plt Count 75 L (150-450) k/uL Neutrophils % 75 % Lymphocytes % 16 % Monocytes % 7 % Eosinophils % 1 % Basophils % 0 % Neutrophils # 4.2 (1.3-7.7) k/uL Lymphocytes # 0.9 L (1.0-4.8) k/uL Monocytes # 0.4 (0-1.0) k/uL Eosinophils # 0.1 (0-0.7) k/uL Basophils # 0.0 (0-0.2) k/uL PT (9.0-12.0) sec INR (<1.2) APTT (22.0-30.0) sec Sodium 140 (137-145) mmol/L Potassium 3.8 (3.5-5.1) mmol/L Chloride 104 (98-107) mmol/L Carbon Dioxide 24 (22-30) mmol/L Anion Gap 12 mmol/L BUN 11 (9-20) mg/dL Creatinine 0.70 (0.66-1.25) mg/dL Est GFR (CKD-EPI)AfAm >90 (>60 ml/min/1.73 sqM) Est GFR (CKD-EPI)NonAf >90 (>60 ml/min/1.73 sqM) Glucose 187 H (74-99) mg/dL Plasma Lactic Acid Evgeny 2.6 H* (0.7-2.0) mmol/L Calcium 9.4 (8.4-10.2) mg/dL Total Bilirubin 2.1 H (0.2-1.3) mg/dL AST 33 (17-59) U/L ALT 35 (21-72) U/L Alkaline Phosphatase 74 (38-126) U/L Troponin I (0.000-0.034) ng/mL Total Protein 6.9 (6.3-8.2) g/dL Albumin 4.1 (3.5-5.0) g/dL Amylase 43 (30-110) U/L Lipase 31 (23-300) U/L Urine Color Urine Appearance (Clear) Urine pH (5.0-8.0) Ur Specific Scarbro (1.001-1.035) Urine Protein (Negative) Urine Glucose (UA) (Negative) Urine Ketones (Negative) Urine Blood (Negative) Urine Nitrite (Negative) Urine Bilirubin (Negative) Urine Urobilinogen (<2.0) mg/dL Ur Leukocyte Esterase (Negative) 07/18/18 07/18/18 07/18/18 Range/Units 10:15 10:15 11:47 WBC (3.8-10.6) k/uL RBC (4.30-5.90) m/uL Hgb (13.0-17.5) gm/dL Hct (39.0-53.0) % MCV (80.0-100.0) fL MCH (25.0-35.0) pg MCHC (31.0-37.0) g/dL RDW (11.5-15.5) % Plt Count (150-450) k/uL Neutrophils % % Lymphocytes % % Monocytes % % Eosinophils % % Basophils % % Neutrophils # (1.3-7.7) k/uL Lymphocytes # (1.0-4.8) k/uL Monocytes # (0-1.0) k/uL Eosinophils # (0-0.7) k/uL Basophils # (0-0.2) k/uL PT 10.4 (9.0-12.0) sec INR 1.1 (<1.2) APTT 22.3 (22.0-30.0) sec Sodium (137-145) mmol/L Potassium (3.5-5.1) mmol/L Chloride (98-107) mmol/L Carbon Dioxide (22-30) mmol/L Anion Gap mmol/L BUN (9-20) mg/dL Creatinine (0.66-1.25) mg/dL Est GFR (CKD-EPI)AfAm (>60 ml/min/1.73 sqM) Est GFR (CKD-EPI)NonAf (>60 ml/min/1.73 sqM) Glucose (74-99) mg/dL Plasma Lactic Acid Evgeny (0.7-2.0) mmol/L Calcium (8.4-10.2) mg/dL Total Bilirubin (0.2-1.3) mg/dL AST (17-59) U/L ALT (21-72) U/L Alkaline Phosphatase (38-126) U/L Troponin I <0.012 (0.000-0.034) ng/mL Total Protein (6.3-8.2) g/dL Albumin (3.5-5.0) g/dL Amylase (30-110) U/L Lipase (23-300) U/L Urine Color Yellow Urine Appearance Clear (Clear) Urine pH 6.5 (5.0-8.0) Ur Specific Scarbro >1.050 H (1.001-1.035) Urine Protein Negative (Negative) Urine Glucose (UA) 2+ H (Negative) Urine Ketones Negative (Negative) Urine Blood Negative (Negative) Urine Nitrite Negative (Negative) Urine Bilirubin Negative (Negative) Urine Urobilinogen <2.0 (<2.0) mg/dL Ur Leukocyte Esterase Negative (Negative) Disposition Clinical Impression: Lumbar back pain, Diverticulitis, Intractable pain Narrative: Rectosigmoid thickening Disposition: ADMITTED IP TO THIS HOSP Condition: Stable Referrals: Carrie Izaguirre MD [Primary Care Provider] - 1-2 days
[2018-07-18 10:38] LABS: Basophils % (A) 0 %; Eosinophils # (A) 0.1 k/uL (0-0.7); Eosinophils % (A) 1 %; HCT 38.1 % (39.0-53.0); HGB 12.8 gm/dL (13.0-17.5); Lymphocytes # (A) 0.9 k/uL (1.0-4.8); Lymphocytes % (A) 16 %; MCH 32.4 pg (25.0-35.0); MCHC 33.6 g/dL (31.0-37.0); MCV 96.4 fL (80.0-100.0); Mean Platelet Volume 7.4; Monocytes # (A) 0.4 k/uL (0-1.0); Monocytes % (A) 7 %; Neutrophils # (A) 4.2 k/uL (1.3-7.7); Neutrophils % (A) 75 %; RBC 3.96 m/uL (4.30-5.90); RDW 13.9 % (11.5-15.5); WBC 5.6 k/uL (3.8-10.6)
[2018-07-18 10:41] LABS: Platelet Count 75 k/uL (150-450)
--- NOTE | 2018-07-18 10:47 | XR ---
EXAMINATION TYPE: XR chest 2V DATE OF EXAM: 07/18/2018 HISTORY: abdominal pain. REFERENCE: Previous study dated 07/09/2018. FINDINGS: There is a right shoulder arthroplasty in place. There has been a rotator cuff repair on th e right. Lung volumes are prominent. Heart size is upper limits of normal. The lungs are clear. IMPRESSION: 1. COPD. 2. BORDERLINE CARDIOMEGALY
[2018-07-18 10:48] LABS: ALT 35 U/L (21-72); AST 33 U/L (17-59); Albumin 4.1 g/dL (3.5-5.0); Alkaline Phosphatase 74 U/L (38-126); Amylase 43 U/L (30-110); Anion Gap 12 mmol/L; Blood Urea Nitrogen 11 mg/dL (9-20); Calcium 9.4 mg/dL (8.4-10.2); Carbon Dioxide 24 mmol/L (22-30); Chloride 104 mmol/L (98-107); Glucose 187 mg/dL (74-99); Lipase 31 U/L (23-300); Potassium 3.8 mmol/L (3.5-5.1); Sodium 140 mmol/L (137-145); Total Bilirubin 2.1 mg/dL (0.2-1.3); Total Protein 6.9 g/dL (6.3-8.2)
[2018-07-18 10:49] LABS: INR 1.1 (<1.2); Partial Thromboplastin Time 22.3 sec (22.0-30.0); Prothrombin Time 10.4 sec (9.0-12.0)
--- NOTE | 2018-07-18 10:49 | XR ---
EXAMINATION TYPE: XR foot complete LT , 3 VIEWS DATE OF EXAM ORDERED: 07/18/2018 HISTORY: Pain. COMPARISON: None. FINDINGS: No fracture or dislocation is seen. There is some swelling over the dorsum of the foot. Th ere is mild degenerative change in the left first MTP joint. There is a small, plantar calcaneal spur . IMPRESSION: NO ACUTE OSSEOUS LESION.
[2018-07-18] MEDS ORDERED: SODIUM CHLORIDE 0.9% 1,000 ML IV ONE (10:51)
[2018-07-18] MEDS ORDERED: HYDROmorphone 0.5 MG/0.5 ML SYRINGE IVP STA (11:19)
--- NOTE | 2018-07-18 11:31 | CT ---
EXAMINATION TYPE: CT abdomen pelvis w con DATE OF EXAM: 07/18/2018 REFERENCE: 1 HISTORY: abdominal pain HISTORY: Pain post fall REFERENCE: Previous study dated 06/23/2018. CT DLP: 1949.4 mGy Automated exposure control for dose reduction was used. TECHNIQUE: Helical acquisition through the abdomen and pelvis was obtained following the oral ingesti on of without Oral Contrast and following intravenous administration of 100 mL of Isovue 300. The jorge a was reformatted in axial, coronal and sagittal projections. FINDINGS: There is minimal dependent atelectasis within the visualized portions of the lungs. There is no pleural or pericardial fluid. The heart is mildly enlarged. There are coronary artery and other vascular calcifications. Within the abdomen, the liver is prominent measuring 19 cm. The spleen and gallbladder are normal. Both adrenal glands are normal. Both kidneys demonstrate function and appear morphologically normal. The pancreas is unremarkable. There is no significant retroperitoneal, iliac or inguinal adenopathy. The prostate gland is enlarged and partially calcified. The bladder is unremarkable. There is some focal thickening of the rectosigmoid junction. There is diverticulosis of the left side of the colon. I do not see radiographic evidence of diverticulitis. The appendix is not visualized w ith certainty. Small bowel loops are normal in caliber. There is no free fluid and no free air. There is degenerative disc disease, facet arthropathy and hypertrophic spondylosis within the spine. IMPRESSION: 1. MILD CARDIOMEGALY. 2. MILD HEPATOMEGALY. 3. THICKENING OF THE RECTOSIGMOID JUNCTION. DIRECT VISUALIZATION WOULD BE SUGGESTED. 4. DEGENERATIVE CHANGES WITHIN THE SPINE.
[2018-07-18 11:58] LABS: Appearance,Urine Clear (Clear); Bilirubin,Urine Negative (Negative); Blood,Urine Negative (Negative); Color,Urine Yellow; Glucose,Urine (UA) 2+ (Negative); Ketones,Urine Negative (Negative); Leukocyte Esterase,Urine Negative (Negative); Nitrite,Urine Negative (Negative); PH, Urine 6.5 (5.0-8.0); Protein,Urine Negative (Negative); Urobilinogen,Urine <2.0 mg/dL (<2.0)
[2018-07-18 12:22] LABS: Specific Gravity,Urine >1.050 (1.001-1.035)
--- NOTE | 2018-07-18 12:35 | XR ---
EXAMINATION TYPE: XR wrist complete RT , 4 VIEWS DATE OF EXAM ORDERED: 07/18/2018 HISTORY: Pain. COMPARISON: None. FINDINGS: There are marked degenerative changes in the first carpal metacarpal joint. There are dege nerative changes in the triscaphe joint. No fracture or dislocation is seen. IMPRESSION: 1. NO ACUTE OSSEOUS LESION. 2. FAIRLY MARKED DEGENERATIVE CHANGE.
[2018-07-18] MEDS ORDERED: LEVOFLOXACIN 750MG-D5W PMX 750 MG in DEXTROSE/WATER 1 150ML.BAG IVPB STA (12:45)
[2018-07-18] MEDS ORDERED: HYDROmorphone 1 MG/ML 1 ML SYRINGE IVP PRN (12:46)
[2018-07-18] MEDS ORDERED: ONDANSETRON 4 MG/2 ML VIAL IVP PRN (12:46)
[2018-07-18] MEDS ORDERED: NALOXONE 0.4 MG/ML 1 ML VIAL IV PRN (12:46)
[2018-07-18] MEDS ORDERED: metroNIDAZOLE-NS PMX 500 MG in SALINE 1 100ML.BAG IVPB STA (12:47)
[2018-07-18] MEDS ORDERED: SODIUM CHLORIDE 0.9% 1,000 ML IV SCH (13:00)
[2018-07-18] MEDS ORDERED: ACETAMINOPHEN TAB 325 MG TAB PO STA (13:00)
[2018-07-18 14:07] VITALS: BMI 37.8
[2018-07-18] MEDS ORDERED: ACETAMINOPHEN TAB 500 MG TAB PO PRN (16:38)
[2018-07-18] MEDS ORDERED: ASPIRIN 325 MG TAB PO SCH (16:45)
[2018-07-18 17:17] LABS: Glucose,Whole Blood 131 mg/dL (75-99)
[2018-07-18] MEDS: INSULIN ASPART 100 UNIT/ML 1 ML 10 ML VIAL SQ SCH (17:36)
[2018-07-18] MEDS: INSULIN NPH/REG INSULIN 70/30 300 UNIT/3 ML VIAL SQ SCH (17:36)
[2018-07-18] MEDS: NAPROXEN 250 MG TAB PO SCH ×2 (17:37→21:29)
[2018-07-18] MEDS: metFORMIN 500 MG TAB PO SCH (17:37)
[2018-07-18] MEDS: CARVEDILOL 12.5 MG TAB PO SCH (17:37)
[2018-07-18] MEDS: ISOSORBIDE MONONITRATE ER 30 MG TAB.ER.24H PO SCH (17:38)
[2018-07-18] MEDS: SPIRONOLACTONE 25 MG TAB PO SCH (17:38)
[2018-07-18] MEDS: ALLOPURINOL 300 MG TAB PO SCH (17:38)
[2018-07-18] MEDS: ATORVASTATIN 20 MG TAB PO SCH (20:08)
[2018-07-18] MEDS: BACITRACIN 500 UNIT/GM OINT 28.4 GM TUBE TOPICAL SCH (20:08)
[2018-07-18] MEDS ORDERED: LACTULOSE 20 GM/30 ML CUP PO PRN (20:24)
[2018-07-18] MEDS ORDERED: ALPRAZolam 0.25 MG TAB PO PRN (20:24)
[2018-07-18] MEDS ORDERED: CALCIUM CARBONATE 500 MG CHEWABLE PO PRN (20:24)
[2018-07-18 20:49] LABS: Glucose,Whole Blood 115 mg/dL (75-99)
[2018-07-18] MEDS: ceFAZolin 1,000 MG in DEXTROSE/WATER 1 50ML.BAG IVPB SCH (20:54)
[2018-07-18] MEDS: MELATONIN 3 MG TABLET PO PRN (20:55)
[2018-07-18] MEDS: ENOXAPARIN 40 MG/0.4 ML SYRINGE SQ SCH (20:55)
--- NOTE | 2018-07-18 21:06 | HP ---
HISTORY AND PHYSICAL DATE OF SERVICE: 07/18/2018 PRESENTING COMPLAINT: Pain, fever. HISTORY OF PRESENTING COMPLAINT: A very pleasant 72-year-old patient of Dr. Alayna Izaguirre. Chronic stable medical conditions include diabetes, GERD, hyperlipidemia, coronary artery disease with stent in the past. About a week ago, the patient tripped on the sidewalk and hit the cement pillar where he hit his head, left knee, the chest wall and also the right wrist. He felt okay at that time, but next morning was hurting all over. The patient also broke the skin superficially of the left kneecap area. Presented with aching all over, did have a fever of 102 earlier, was given IV antibiotics in the ER. The patient overall does feel better now. X-rays done in the ER did not show any obvious fracture. The patient has no urinary symptoms, no respiratory symptoms. Sitting at the edge of the bed. REVIEW OF SYSTEMS: CONSTITUTIONAL: Febrile. HEENT: None. RESPIRATORY: None. CARDIOVASCULAR: None. GASTROINTESTINAL: None. GENITOURINARY: None. MUSCULOSKELETAL: Pain in the right wrist, some in the chest wall, now gone, left knee area. No scalp pain. HEMATOLOGICAL: None. LYMPHATICS: None. PSYCHIATRY: None. NEUROLOGICAL: None. PAST MEDICAL HISTORY: Diabetes mellitus type 2, GERD, hyperlipidemia, coronary artery disease with stent, osteoarthritis. PAST SURGICAL HISTORY: Cardiac cath with stent, joint replacement, bilateral total knee replacement, right knee scope, right shoulder surgery. SOCIAL HISTORY: The patient lives with his daughter. Smoked 2 packs a day for about 38 years, stopped 15 years ago. No alcohol. FAMILY HISTORY: The patient does not know. HOME MEDICATIONS: 1. Metformin 1000 mg b.i.d. 2. Aldactone 25 mg a day. 3. Imdur 30 mg a day. 4. Insulin 70/30 20 units with breakfast, 10 with supper. 5. Iron 325 mg a day. 6. Coreg 12.5 p.o. b.i.d. 7. Lipitor 20 mg q.h.s. 8. Aspirin 325 p.o. daily. 9. Allopurinol 300 mg a day. 10.Tylenol 1000 mg p.o. q.h.s. p.r.n. ALLERGIES: None. EXAMINATION: T-max 102.5, pulse 97, respirations 18, blood pressure 149/66, pulse 99% on room air. General appearance: Well-built, 37.8. Sitting at the edge of the bed, awake. EYES: Pupils equal. Conjunctivae normal. HEENT: External nose and ears normal. Oral cavity normal. NECK: JVD not raised. Mass not palpable. RESPIRATORY: Effort normal. LUNGS: Diminished breath sounds. CARDIOVASCULAR: First and second heart sounds normal. No edema. ABDOMEN: Soft, nontender. Liver and spleen not palpable. LYMPHATIC: No lymph node palpable in neck or axillae. PSYCHIATRY: Alert and oriented x3. Mood and affect normal. MUSCULOSKELETAL: Patient has got some tenderness at the 1st metacarpophalangeal joint on the right hand. DERMATOLOGICAL: Area of cellulitis secondary infection anterior to the left kneecap with localized redness, tenderness. INVESTIGATIONS: White count 5.6, hemoglobin 12.8, platelets 75. The patient's platelet count was 78 back on December 2017. UA with glucose 2+. ASSESSMENT: 1. Acute cellulitis secondary due to trauma anterior to the left knee, presented with a fever of 102 on admission with a normal white count. 2. Acute lactic acidosis. 3. 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 4. Coronary artery disease, prior history of stent. 5. Diabetes mellitus type 2, chronically on insulin. 6. Gastroesophageal reflux disease. 7. Hyperlipidemia. 8. Obesity; BMI 37.8. 9. Musculoskeletal pain secondary to fall with no obvious evidence of fracture on the x-rays, but cannot rule out a fracture of the right 1st carpometacarpal joint. PLAN: Patient is started on IV Unasyn. Will use bacitracin ointment to the left knee. Home medications will be resumed. Accu-Cheks will be followed. Orthopedic opinion will be sought. We will start the patient on naproxen 250 mg 3 times a day for anti- inflammatory affect. Dose of aspirin will be cut back to 81 mg a day. Care was discussed at length with the patient. Questions were answered. MMODL / IJN: [id number] /
[2018-07-19] MEDS ORDERED: metroNIDAZOLE-NS PMX 500 MG in SALINE 1 100ML.BAG IVPB SCH
[2018-07-19] MEDS: ceFAZolin 1,000 MG in DEXTROSE/WATER 1 50ML.BAG IVPB SCH ×3 (04:25→20:24)
[2018-07-19 07:27] LABS: Glucose,Whole Blood 118 mg/dL (75-99)
[2018-07-19] MEDS: INSULIN ASPART 100 UNIT/ML 1 ML 10 ML VIAL SQ SCH ×3 (07:28→17:29)
[2018-07-19] MEDS: CARVEDILOL 12.5 MG TAB PO SCH ×2 (08:55→16:33)
[2018-07-19] MEDS: metFORMIN 500 MG TAB PO SCH ×2 (08:55→16:33)
[2018-07-19] MEDS: ALLOPURINOL 300 MG TAB PO SCH (08:55)
[2018-07-19] MEDS: ISOSORBIDE MONONITRATE ER 30 MG TAB.ER.24H PO SCH (08:56)
[2018-07-19] MEDS: ASPIRIN 81 MG PO SCH (08:56)
[2018-07-19] MEDS: NAPROXEN 250 MG TAB PO SCH ×2 (08:56→20:23)
[2018-07-19] MEDS: BACITRACIN 500 UNIT/GM OINT 28.4 GM TUBE TOPICAL SCH ×2 (08:56→20:25)
[2018-07-19] MEDS: SPIRONOLACTONE 25 MG TAB PO SCH (08:56)
[2018-07-19] MEDS: INSULIN NPH/REG INSULIN 70/30 300 UNIT/3 ML VIAL SQ SCH ×2 (08:57→17:30)
[2018-07-19 11:37] LABS: Glucose,Whole Blood 108 mg/dL (75-99)
[2018-07-19 11:42] LABS: Basophils % (A) 0 %; Eosinophils # (A) 0.1 k/uL (0-0.7); Eosinophils % (A) 1 %; HCT 34.5 % (39.0-53.0); HGB 11.3 gm/dL (13.0-17.5); Lymphocytes # (A) 0.9 k/uL (1.0-4.8); Lymphocytes % (A) 18 %; MCH 31.9 pg (25.0-35.0); MCHC 32.6 g/dL (31.0-37.0); MCV 97.8 fL (80.0-100.0); Mean Platelet Volume 6.9; Monocytes # (A) 0.3 k/uL (0-1.0); Monocytes % (A) 6 %; Neutrophils # (A) 3.7 k/uL (1.3-7.7); Neutrophils % (A) 74 %; RBC 3.53 m/uL (4.30-5.90)
[2018-07-19 11:43] LABS: Platelet Count 71 k/uL (150-450)
[2018-07-19] MEDS: FERROUS SULFATE 325 MG TAB PO SCH (13:08)
--- NOTE | 2018-07-19 14:05 | P.CNOR ---
History of Present Illness - [facility] Consult date: 07/19/18 Requesting physician: Art Lemons Consult reason: low back pain (Left-sided low back pain status post fall), other (Right hand pain status post fall) History of present illness: Patient is a pleasant 72-year-old male who is seen and examined at bedside for consultation for multiple injuries sustained after a fall this past Friday, . Patient states he was at [employer] getting some food when he sustained a fall. He hit his head at that time. He did not notice any specific injuries at that time. He denies loss of consciousness. He denies any difficulty with concentration. He is not currently experiencing any headaches. He states the following day he began to experience significant pain at the right thumb and at base of the right index finger. He has swelling in his right hand and fingers. He has had difficulty using his right hand to perform regular activities of daily living. He also experienced an abrasion over the left knee at the time of the fall. He has a scab that is healing well over the left knee and is not currently experiencing significant left knee pain. He also sustained injury that his left great toe. He has some bruising over the left great toe but is not currently experiencing any significant pain of the left foot. He has been experiencing significant left-sided low back pain since the fall. Multiple imaging modalities were performed in the emergency department without evidence of significant fracture at the right hand, left foot, or lumbar spine. Degenerative changes were found at the right hand, left foot, and lumbar spine. He is eating and voiding without difficulty. He has been receiving Tylenol 1000 mg at nighttime for pain control but nothing throughout the day. His pain has not been adequate controlled throughout the day. He states he generally has approximately 2-3 bowel movements per day but has not had a bowel movement since 07/17/2018. CT the abdomen and pelvis did show some thickening at the sigmoid rectal junction. Past Medical History Past Medical History: Chest Pain / Angina, Diabetes Mellitus, GERD/Reflux, Hyperlipidemia, Myocardial Infarction ([place]), Pneumonia Additional Past Medical History / Comment(s): SEE H & P FOR CARDIAC HX Last Myocardial Infarction Date:: 2001 History of Any Multi-Drug Resistant Organisms: None Reported Past Surgical History: Heart Catheterization, Heart Catheterization With Stent, Joint Replacement, Orthopedic Surgery Additional Past Surgical History / Comment(s): BILAT TOTAL KNEE REPLACEMENT, RT KNEE SCOPE, BILAT CTR, (R) shoulder surgery. Past Anesthesia/Blood Transfusion Reactions: No Reported Reaction Date of Last Stent Placement:: May 2017 Past Psychological History: No Psychological Hx Reported Additional Psychological History / Comment(s): pt lives at home with his daughter Smoking Status: Former smoker Past Alcohol Use History: None Reported Past Drug Use History: None Reported - Past Family History Father History Unknown: Yes Mother History Unknown: Yes Additional Family Medical History / Comment(s): pt states she is and he does not know history Medications and Allergies Home Medications Medication Instructions Recorded Confirmed Type Allopurinol [Zyloprim] 300 mg PO DAILY 06/07/14 07/18/18 History Aspirin 325 mg PO DAILY 06/07/14 07/18/18 History Insulin NPH Hum/Reg Insulin Hm 10 unit SQ AC-SUPPER 06/07/14 07/18/18 History [NovoLIN 70-30 100 UNIT/ML VIAL] Isosorbide Mononitrate [Imdur] 30 mg PO DAILY 06/07/14 07/18/18 History metFORMIN HCL 1,000 mg PO BID 06/07/14 07/18/18 History Ferrous Sulfate [Iron (65 MG 325 mg PO DAILY 03/07/16 07/18/18 History Elemental)] Spironolactone [Aldactone] 25 mg PO DAILY #30 tab 03/09/16 07/18/18 Rx Atorvastatin [Lipitor] 20 mg PO HS 07/21/17 07/18/18 History Carvedilol [Coreg] 12.5 mg PO BID 07/21/17 07/18/18 History Insulin NPH Hum/Reg Insulin Hm 20 unit SQ AC-BRKFST #0 07/29/17 07/18/18 Rx [NovoLIN 70-30 100 UNIT/ML VIAL] Acetaminophen [Tylenol] 1,000 mg PO HS PRN 07/09/18 07/18/18 History Allergies Allergy/AdvReac Type Severity Reaction Status Date / Time No Known Allergies Allergy Verified 07/18/18 13:21 Physical Examination Physical exam: Patient is awake, alert, and oriented 3 Vital signs stable Good chest excursion with deep inspiration and expiration Abdomen soft nontender Examination of lumbar spine reveals skin is intact with no abrasions, lacerations, or bruises; no erythema, purulence or signs of infection Pain with palpation of the left lateral lumbar spine and towards the left sacroiliac joint Dorsiflexion, plantarflexion, and extensor hallucis longus positive sustained bilaterally Lower extremity strength 5/5 bilaterally Evidence of healing abrasion over the left knee with no active drainage or obvious sign of infection No significant erythema over the left knee Evidence of bruising over the left second toe and at the metatarsal phalangeal joint No significant pain with palpation over the left ankle, foot, or toes Mild generalized swelling over the dorsum of the left foot Evidence of well-healed incisions over the bilateral knees from previous total knee arthroplasty Evidence of swelling over the fingers of the right hand and over the right hand No obvious sign of infection, erythema, or bruising over the right hand or fingers of the right hand Significant pain with palpation over the base of the right index finger, base of the right thumb, and over the thenar pad of the right hand Patient is able to perform active range of motion of the right hand but has pain while doing so at the thumb and index finger Neurovascularly intact right upper extremity Active range of motion of right elbow and shoulder without difficultyt Results Pertinent studies: X-rays of the right wrist taken on 07/18/2018: Marked degeneration at the first carpal metacarpal joint; no evidence of fracture or dislocation; degenerative changes at the triscaphe joint X-rays the left foot taken on 07/18/2018: Mild degenerative changes at the left first metatarsal phalangeal joint; no evidence of acute osseous lesion; swelling over the dorsum of the foot; no evidence of fracture or dislocation CT the abdomen and pelvis performed on 07/18/2018: Thickening of the rectosigmoid junction in which direct visualization is suggested; [id number] mild degenerative disc disease; L4-5 degenerative disc disease with anterior osteophytic spurring; overall alignment lumbosacral spine appears to be adequately maintained; no evidence of vertebral body compression fracture - Labs Labs: Abnormal Lab Results - Last 24 Hours (Table) 07/18/18 07/18/18 07/19/18 Range/Units 17:15 20:39 07:24 RBC (4.30-5.90) m/uL Hgb (13.0-17.5) gm/dL Hct (39.0-53.0) % Plt Count (150-450) k/uL Lymphocytes # (1.0-4.8) k/uL POC Glucose (mg/dL) 131 H 115 H 118 H (75-99) mg/dL 07/19/18 07/19/18 Range/Units 11:00 11:35 RBC 3.53 L (4.30-5.90) m/uL Hgb 11.3 L (13.0-17.5) gm/dL Hct 34.5 L (39.0-53.0) % Plt Count 71 L (150-450) k/uL Lymphocytes # 0.9 L (1.0-4.8) k/uL POC Glucose (mg/dL) 108 H (75-99) mg/dL Microbiology - Last 24 Hours (Table) 07/18/18 10:15 Blood Culture - Preliminary Blood No Growth after 24 hours H & H 07/18/18 07/19/18 Range/Units 10:15 11:00 Hgb 12.8 L 11.3 L (13.0-17.5) gm/dL Hct 38.1 L 34.5 L (39.0-53.0) % Coagulation 07/18/18 Range/Units 10:15 INR 1.1 (<1.2) Result Diagrams: 07/19/18 11:00 07/18/18 10:15 Assessment and Plan Assessment: Assessment: Significant right hand pain with pain at the right thumb and base of the right index finger Marked degeneration of the right first carpal metacarpal joint Degenerative changes at the right triscaphe joint Mild degenerative changes at the left first metatarsal phalangeal joint Acute left-sided low back pain L4-5 degenerative disc disease with anterior osteophytic spurring Left great toe pain, resolving Left-sided low back pain Left knee abrasion, healing Thickening of the rectosigmoid junction Status post fall (1) Status post fall Current Visit: Yes Status: Acute Code(s): Z91.81 - HISTORY OF FALLING SNOMED Code(s): 909156919 (2) Acute left-sided low back pain Current Visit: Yes Status: Acute Code(s): M54.5 - LOW BACK PAIN SNOMED Code(s): 572189601 (3) Lumbar degenerative disc disease Current Visit: Yes Status: Acute Code(s): M51.36 - OTHER INTERVERTEBRAL DISC DEGENERATION, LUMBAR REGION SNOMED Code(s): 72257734 (4) Right hand pain Current Visit: Yes Status: Acute Code(s): M79.641 - PAIN IN RIGHT HAND SNOMED Code(s): 21132119 (5) Abrasion of knee, left Current Visit: No Status: Acute Code(s): S80.212A - ABRASION, LEFT KNEE, INITIAL ENCOUNTER SNOMED Code(s): 59962883027165273 Plan: Plan: 1. All imaging has been reviewed. Patient has been discussed in detail with Dr. Gerardo Cortes. No obvious evidence of fracture or acute findings are evident on imaging. He does have some evidence of thickening at the rectosigmoid junction which is deferred to medicine for further treatment and evaluation. He does not have evidence of fractured his lumbar spine and alignment appears be adequately maintained. He is not currently experiencing any significant lower extremity weakness or radiculopathy bilaterally. We are not currently planning for acute surgical intervention regards to his lumbosacral spine. We will currently plan to continue with conservative treatment in regards to his lumbar spine after his recent fall. The left great toe pain is improving. The wound over his left knee is improving. He does have significant pain with swelling and increased pain with movement of the right hand, right thumb, and at the base of the right index finger. We will currently plan to obtain a thumb spica for the right upper extremity. We'll also plan to obtain an MRI of the right hand for further evaluation. We will follow up with an appropriate plan of care in regards to his right hand following the completion and interpretation of the MRI of the right hand. 2. Continue pain control; Tylenol 650 mg 1 tab every 8 hours as needed for pain is added; discontinue Tylenol 1000 mg at nighttime for pain control 3. Patient will continue to be seen and examined by medicine 4. Patient has been discussed with Dr. Gerardo Cortes and he agrees with this plan Time with Patient: Greater than 30
[2018-07-19] MEDS: ACETAMINOPHEN TAB 325 MG TAB PO PRN (16:33)
[2018-07-19 17:21] LABS: Glucose,Whole Blood 141 mg/dL (75-99)
[2018-07-19] MEDS: ATORVASTATIN 20 MG TAB PO SCH (20:23)
[2018-07-19] MEDS: ENOXAPARIN 40 MG/0.4 ML SYRINGE SQ SCH (20:24)
[2018-07-19 20:34] LABS: Glucose,Whole Blood 110 mg/dL (75-99)
--- NOTE | 2018-07-19 22:04 | PN ---
PROGRESS NOTE DATE OF SERVICE: July 19, 2018. PRESENTING COMPLAINT: Fall, pain. INTERVAL HISTORY: This patient presented with fall and multiple areas of blunt injury. Seen by orthopedics earlier today. No evidence of fracture. The patient is complaining of some more pain. I did increase his dose of naproxen to 500 mg twice a day. Ordered a K-pad to which patient really feels much better and also ice pack to the right wrist. Orthopedic has ordered an MRI. REVIEW OF SYSTEMS: Done for constitutional, cardiovascular, GI, pulmonary and findings as above. Overall, patient is feeling much better. CURRENT MEDICATIONS: Reviewed that include IV Ancef for cellulitis of the left knee. I do not think the rectosigmoid prominence on the CT scan if any clinical significance as patient has no clinical symptoms of such. EXAMINATION: VITAL SIGNS: On examination temperature 97.9, pulse 58, respiratory rate is 20, blood pressure 129/67, pulse ox 98 percent on room air. GENERAL APPEARANCE: Sitting up, comfortable. EYES: Pupils are equal. Conjunctivae normal. HEENT: External appearance of nose and ears normal. Oral cavity normal. NECK: JVD not raised. Mass not palpable. RESPIRATORY: Effort normal. LUNGS: Diminished breath sounds. CARDIOVASCULAR: 1st and 2nd sounds, no edema. ABDOMEN: Soft, nontender. Liver and spleen not palpable. PSYCHIATRY: Alert and oriented x3. Mood and affect normal. DERMATOLOGICAL: Area of cellulitis with secondary infection anterior to the left kneecap, improving. INVESTIGATIONS: White count 5, hemoglobin 11.3, platelets 71. Accu-Cheks are noted. ASSESSMENT: 1. Acute cellulitis secondary to local trauma anterior to left kneecap, clinically improving. 2. Acute lactic acidosis. 3. 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 4. Coronary artery disease prior history of stent. 5. Diabetes mellitus type 2, chronically on insulin. 6. Gastroesophageal reflux disease. 7. Hyperlipidemia. 8. Obesity; BMI 37.8. 9. Musculoskeletal pain at multiple sites secondary to fall. MRI has been done to rule out fracture of the right hand. PLAN: Dose of naproxen was increased to 500 mg twice a day. K-pad is working well. Patient overall doing much better. Did walk up to the bathroom. MMODL / IJN: [id number] /
[2018-07-20] MEDS: MELATONIN 3 MG TABLET PO PRN (00:50)
[2018-07-20] MEDS: ACETAMINOPHEN TAB 325 MG TAB PO PRN (00:50)
[2018-07-20] MEDS: ceFAZolin 1,000 MG in DEXTROSE/WATER 1 50ML.BAG IVPB SCH ×2 (03:36→11:05)
[2018-07-20 06:47] LABS: Glucose,Whole Blood 114 mg/dL (75-99)
[2018-07-20] MEDS: INSULIN ASPART 100 UNIT/ML 1 ML 10 ML VIAL SQ SCH ×3 (06:49→17:50)
[2018-07-20] MEDS: INSULIN NPH/REG INSULIN 70/30 300 UNIT/3 ML VIAL SQ SCH ×2 (08:17→17:34)
[2018-07-20] MEDS: metFORMIN 500 MG TAB PO SCH ×2 (08:17→17:34)
[2018-07-20] MEDS: ASPIRIN 81 MG PO SCH (08:18)
[2018-07-20] MEDS: CARVEDILOL 12.5 MG TAB PO SCH ×2 (08:18→17:34)
[2018-07-20] MEDS: SPIRONOLACTONE 25 MG TAB PO SCH (08:18)
[2018-07-20] MEDS: ISOSORBIDE MONONITRATE ER 30 MG TAB.ER.24H PO SCH (08:18)
[2018-07-20] MEDS: NAPROXEN 250 MG TAB PO SCH (08:19)
[2018-07-20] MEDS: ALLOPURINOL 300 MG TAB PO SCH (08:21)
[2018-07-20] MEDS: BACITRACIN 500 UNIT/GM OINT 28.4 GM TUBE TOPICAL SCH (08:21)
[2018-07-20] MEDS: FERROUS SULFATE 325 MG TAB PO SCH (11:05)
[2018-07-20 12:23] LABS: Glucose,Whole Blood 112 mg/dL (75-99)
--- NOTE | 2018-07-20 12:47 | CDI ---
Last Revision, October 2017 Documentation Clarification Form Date: 07/20/2018 12:28:00 PM From: Yasmine Nesbitt RN, CCDS Admit Date: 07/18/2018 12:56:00 PM Patient Name: Vasquez Johnson Visit Number: [id number] ATTENTION: The Clinical Documentation Specialists (CDI) and [facility] Coding Staff appreciate your assistance in clarifying documentation. Please respond to the clarification below the line at the bottom and electronically sign. The CDI & [facility] Coding staff will review the response and follow-up if needed. Please note: Queries are made part of the Legal Health Record. If you have any questions, please contact the author of this message via ITS. Art aSwant MD Please provide specificity regarding Hemoglobin and Hematocrit to accurately reflect your patients severity of condition and clarification is needed. 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, lactic acidosis, a cellulitis, DM2, Recent fall Clinical indicators: Hemoglobin: 12.8/11.3 Hematocrit: 38.1/34.5 Treatment: Labs AM Daily w/ monitoring Feosol 325 mg PO QD 1.5L IVF followed by 100cc/hr In order to capture the severity of condition, please clarify the type of significance and treatment of the above noted lab values and etiology if known: Chronic blood loss anemia Iron deficiency anemia Nutritional anemia Anemia of chronic disease Unable to determine Other, please specify Please continue to document in your progress notes and discharge summary in order to capture severity of illness and risk of mortality. Include clinical findings that support your diagnosis. MTDD
[2018-07-20 14:42] VITALS: BP 123/69; PULSE 66; RESP 18; TEMP 98
--- NOTE | 2018-07-20 14:53 | P.CNOR ---
History of Present Illness - [facility] Consult date: 07/20/18 Consult reason: low back pain, other History of present illness: Patient is a pleasant 72-year-old male who seen and examined today at bedside. We're counseled on imaging for a number of issues for some mild cellulitis his left knee, pain in his low back pain pain in his right hand and thumb. Apparently the patient had a fall on July 22 about 8 days ago when he is going to [employer] and he fell and hit his head and fell onto his left side. He said he did not lose consciousness had some pain in his low back on the left side he scraped his knee. He said he was making some improvement but then started noticing some swelling and pain in his right thumb and hand. His been here in the hospital since yesterday's been treated with pain control and with antibiotics for cellulitis and swelling in his right thumb. Patient says that his leg is doing well around the abrasion of his knee. He feels his back is doing well with a heating pad on his back. He said is some is still giving him pain at the base of his thumb and into his right hand. We had ordered a brace for his thumb which is still not been delivered. We ordered him a thumb spica splint. We also ordered an MRI of his right hand and thumb but is unable to go through with the exam due to positioning. Review of Systems As stated above. He denies any nausea or vomiting. He did have computed tomography scan which of his abdomen which medicine is managing. He still has pain in his right thumb with swelling. He denies any specific injury of his thumb. Denies any prior Past Medical History Past Medical History: Chest Pain / Angina, Diabetes Mellitus, GERD/Reflux, Hyperlipidemia, Myocardial Infarction ([place]), Pneumonia Additional Past Medical History / Comment(s): SEE H & P FOR CARDIAC HX Last Myocardial Infarction Date:: 2001 History of Any Multi-Drug Resistant Organisms: None Reported Past Surgical History: Heart Catheterization, Heart Catheterization With Stent, Joint Replacement, Orthopedic Surgery Additional Past Surgical History / Comment(s): BILAT TOTAL KNEE REPLACEMENT, RT KNEE SCOPE, BILAT CTR, (R) shoulder surgery. Past Anesthesia/Blood Transfusion Reactions: No Reported Reaction Date of Last Stent Placement:: May 2017 Past Psychological History: No Psychological Hx Reported Additional Psychological History / Comment(s): pt lives at home with his daughter Smoking Status: Former smoker Past Alcohol Use History: None Reported Past Drug Use History: None Reported - Past Family History Father History Unknown: Yes Mother History Unknown: Yes Additional Family Medical History / Comment(s): pt states she is and he does not know history Medications and Allergies Home Medications Medication Instructions Recorded Confirmed Type Allopurinol [Zyloprim] 300 mg PO DAILY 06/07/14 07/18/18 History Aspirin 325 mg PO DAILY 06/07/14 07/18/18 History Insulin NPH Hum/Reg Insulin Hm 10 unit SQ AC-SUPPER 06/07/14 07/18/18 History [NovoLIN 70-30 100 UNIT/ML VIAL] Isosorbide Mononitrate [Imdur] 30 mg PO DAILY 06/07/14 07/18/18 History metFORMIN HCL 1,000 mg PO BID 06/07/14 07/18/18 History Ferrous Sulfate [Iron (65 MG 325 mg PO DAILY 03/07/16 07/18/18 History Elemental)] Spironolactone [Aldactone] 25 mg PO DAILY #30 tab 03/09/16 07/18/18 Rx Atorvastatin [Lipitor] 20 mg PO HS 07/21/17 07/18/18 History Carvedilol [Coreg] 12.5 mg PO BID 07/21/17 07/18/18 History Insulin NPH Hum/Reg Insulin Hm 20 unit SQ AC-BRKFST #0 07/29/17 07/18/18 Rx [NovoLIN 70-30 100 UNIT/ML VIAL] Acetaminophen [Tylenol] 1,000 mg PO HS PRN 07/09/18 07/18/18 History Allergies Allergy/AdvReac Type Severity Reaction Status Date / Time No Known Allergies Allergy Verified 07/18/18 13:21 Physical Examination Osteopathic Statement: *. No significant issues noted on an osteopathic structural exam other than those noted in the History and Physical/Consult. - L Spine: dermatomal strength & reflexes bilateral Strength: hip flexion: 5/5 (In his back is nontender to palpation. There is no open wounds lacerations or abrasions. He has some paravertebral spasm. With the left. He has sustained a/plan flexion and EHL his bilateral lower extremities 5 over 5 strength. No neurologic deficit his lower extremities. There is an abrasion at the left knee approximately 3 x 3 cm with scabbing over the top. There is no significant erythema there is no fluid in the joint. He has a prior incision at that area from total knee replacement but this appears to be stable and intact.) Results - Labs Labs: Abnormal Lab Results - Last 24 Hours (Table) 07/19/18 07/19/18 07/20/18 Range/Units 17:17 20:32 06:45 POC Glucose (mg/dL) 141 H 110 H 114 H (75-99) mg/dL 07/20/18 Range/Units 12:21 POC Glucose (mg/dL) 112 H (75-99) mg/dL Microbiology - Last 24 Hours (Table) 07/18/18 10:15 Blood Culture - Preliminary Blood No Growth after 48 hours H & H 07/18/18 07/19/18 Range/Units 10:15 11:00 Hgb 12.8 L 11.3 L (13.0-17.5) gm/dL Hct 38.1 L 34.5 L (39.0-53.0) % Coagulation 07/18/18 Range/Units 10:15 INR 1.1 (<1.2) Result Diagrams: 07/19/18 11:00 07/18/18 10:15 - Diagnostic results Wrist/Hand x-ray: report reviewed, image reviewed (Imaging of his hand and wrist show any evidence of a fracture. There is significant degenerative change at the CMC joint of the right thumb. 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 I think that he should continue with conservative treatment and anti-inflammatories is able local wound care over the abrasion that his knee. I would not recommend any further imaging of his lumbar spine or his knee at this point. In regards to his right hand he has significant difficulty at the base of his thumb. There is still significant swelling but this does not appear to be infectious overall. I think that he may have some collapse at the carpal bone at the base of his thumb and this may be the source of his symptoms. I think that this likely occurred at the time of his injury when he fell last week. He does not have a instability at the collateral ligaments and there is no evidence of fracture at his thumb. I think that further imaging would be worthwhile to see if there is a change in the trapezium of his right thumb. He was unable to tolerate MRI and we will go ahead with computed tomography scan. We have ordered a thumb spica splint for him but this is not yet arrived. I think that some nausea mobilization will help alleviate some of his symptoms and allow him to be more mobile overall. I do not have any acute plans for surgical intervention for him. He should continue with conservative care.
[2018-07-20 17:13] LABS: Glucose,Whole Blood 124 mg/dL (75-99)
--- NOTE | 2018-07-20 17:21 | CT ---
EXAMINATION TYPE: CT hand RT wo con DATE OF EXAM: 07/20/2018 COMPARISON: Wrist radiographs 07/18/2018 HISTORY: 72-year-old male with right thenar eminence pain after fall. TECHNIQUE: Contiguous axial scanning of the right hand without IV contrast. Coronal and sagittal jack nstructions performed. 3-D reconstructions generated on a dedicated independent workstation. CT DLP: 193.4 mGycm Automated exposure control for dose reduction was used. FINDINGS: Scattered moderate to advanced osteoarthritic changes are present especially within the DIP joints an d first CMC joint. There is lucency along the dorsal aspect of the scaphoid waist referred to sagittal images 43 and 44 and coronal images 8 and 9. There is no sclerosis or fragmentation of the scaphoid. Vascular calcifications are noted. Distal radial ulnar joint is intact. IMPRESSION: 1. CORTICAL LUCENCY ALONG THE DORSAL ASPECT OF THE SCAPHOID WAIST, (SAGITTAL IMAGES 43 AND 44 AND COR ONAL IMAGES 8 AND 9). THIS COULD REPRESENT BONY SPURRING. AN INCOMPLETE SCAPHOID WAIST FRACTURE IS DI FFICULT TO EXCLUDE AT THIS TIME. CONSIDER SHORT INTERVAL FOLLOW-UP VERSUS MRI. 2. MODERATE TO ADVANCED SCATTERED OSTEOARTHRITIC CHANGES ESPECIALLY IN THE DIP JOINTS AND BASE OF THE THUMB.
== END 2018-07-20 19:07 | disposition home health service (06) | DRG 603 ==
LOC: EC 09:41 → 4MS4W 12:56
PROVIDERS: ADMIT Hospitalist; ATTEND Hospitalist
DX: L03.116 Cellulitis of left lower limb (principal); D69.3 Immune thrombocytopenic purpura; E87.2 Acidosis; S39.012A Strain of muscle, fascia and tendon of lower back, initial encounter; E11.9 Type 2 diabetes mellitus without complications; S80.212A Abrasion, left knee, initial encounter; M79.641 Pain in right hand; M79.675 Pain in left toe(s); M51.36 Other intervertebral disc degeneration, lumbar region; M19.041 Primary osteoarthritis, right hand; E78.5 Hyperlipidemia, unspecified; K21.9 Gastro-esophageal reflux disease without esophagitis; I25.10 Atherosclerotic heart disease of native coronary artery without angina pectoris; I25.2 Old myocardial infarction; E66.9 Obesity, unspecified; Z68.37 Body mass index [BMI] 37.0-37.9, adult; Z79.82 Long term (current) use of aspirin; Z79.4 Long term (current) use of insulin; Z79.899 Other long term (current) drug therapy; Z87.891 Personal history of nicotine dependence; Z95.5 Presence of coronary angioplasty implant and graft; Z87.01 Personal history of pneumonia (recurrent); Z96.653 Presence of artificial knee joint, bilateral; W01.0XXA Fall on same level from slipping, tripping and stumbling without subsequent striking against object, initial encounter; Y92.480 Sidewalk as the place of occurrence of the external cause
CPT/HCPCS: 36415; 71046; 74177; 80053; 81003; 82150; 83605; 83690; 84484; 85025; 85610; 85730; 87040; 93005; 96361; 96365; 96375; 99285

== ENCOUNTER 2018-10-20 07:02 | Inpatient (IN) | payer MEDICARE ==
[2018-10-20] MEDS ORDERED: IBUPROFEN 600 MG TAB PO STA (07:17)
[2018-10-20] MEDS ORDERED: ACETAMINOPHEN TAB 500 MG TAB PO STA (07:17)
--- NOTE | 2018-10-20 07:30 | ED ---
General Adult HPI - General Chief complaint: Chest Pain Stated complaint: chest pain Time Seen by Provider: 10/20/18 07:05 Source: EMS, RN notes reviewed Mode of arrival: EMS Limitations: altered mental status - History of Present Illness Initial comments: This is a 73-year-old male who presents emergency Department with the initial complaint of chest pain after having gone to the gym. Patient received the aspirin and nitroglycerin in route and was feeling much better according to the paramedics he was able to answer all questions. When patient arrived he stated he had some chest pain denied any shortness of breath but stated he did have an occasional dry cough. Patient states his influenza vaccine was received earlier in the year. Patient denies any headache patient denies any numbness or weakness. Patient denies any focal deficit. Patient denies any abdominal pain patient denies nausea vomiting or diarrhea. When I was in the room the patient was alert and oriented 4 however nursing states that there were episodes where he did not seem to understand or was unable to answer questions but those episodes only lasted a few seconds and then seemed to resolve fairly quickly. I did not experience this when I was in the room. Patient denies any recent injury or trauma. Patient states prior to going to the gym this morning he felt fine. Patient states currently he is having mild chest pain but no shortness of breath. - Related Data Home Medications Medication Instructions Recorded Confirmed Allopurinol [Zyloprim] 300 mg PO DAILY 06/07/14 10/20/18 Insulin NPH Hum/Reg Insulin Hm 10 unit SQ AC-SUPPER 06/07/14 10/20/18 [NovoLIN 70-30 100 UNIT/ML VIAL] Isosorbide Mononitrate [Imdur] 30 mg PO DAILY 06/07/14 10/20/18 metFORMIN HCL 1,000 mg PO BID 06/07/14 10/20/18 Ferrous Sulfate [Iron (65 MG 325 mg PO DAILY 03/07/16 10/20/18 Elemental)] Atorvastatin [Lipitor] 20 mg PO HS 07/21/17 10/20/18 Carvedilol [Coreg] 12.5 mg PO BID 07/21/17 10/20/18 Acetaminophen [Tylenol Extra 500 mg PO Q4H PRN 10/20/18 10/20/18 Strength] Aspirin 325 mg PO DAILY 10/20/18 10/20/18 Previous Rx's Medication Instructions Recorded Spironolactone [Aldactone] 25 mg PO DAILY #30 tab 03/09/16 Insulin NPH Hum/Reg Insulin Hm 20 unit SQ AC-BRKFST #0 07/29/17 [NovoLIN 70-30 100 UNIT/ML VIAL] Allergies Allergy/AdvReac Type Severity Reaction Status Date / Time No Known Allergies Allergy Verified 10/20/18 08:35 Review of Systems ROS Statement: Those systems with pertinent positive or pertinent negative responses have been documented in the HPI. ROS Other: All systems not noted in ROS Statement are negative. Past Medical History Past Medical History: Chest Pain / Angina, Diabetes Mellitus, GERD/Reflux, Hyperlipidemia, Myocardial Infarction ([place]), Pneumonia Additional Past Medical History / Comment(s): SEE H & P FOR CARDIAC HX Last Myocardial Infarction Date:: 2001 History of Any Multi-Drug Resistant Organisms: None Reported Past Surgical History: Heart Catheterization, Heart Catheterization With Stent, Joint Replacement, Orthopedic Surgery Additional Past Surgical History / Comment(s): BILAT TOTAL KNEE REPLACEMENT, RT KNEE SCOPE, BILAT CTR, (R) shoulder surgery. Past Anesthesia/Blood Transfusion Reactions: No Reported Reaction Date of Last Stent Placement:: May 2017 Past Psychological History: No Psychological Hx Reported Smoking Status: Former smoker Past Alcohol Use History: None Reported Past Drug Use History: None Reported - Past Family History Father History Unknown: Yes Mother History Unknown: Yes Additional Family Medical History / Comment(s): pt states she is and he does not know history General Exam - General Exam Comments Initial Comments: GENERAL: Patient is well-developed and well-nourished. Patient is nontoxic and well- hydrated and is in mild distress. ENT: Neck is soft and supple. No significant lymphadenopathy is noted. Oropharynx is clear. Moist mucous membranes. Neck has full range of motion without eliciting any pain. EYES: The sclera were anicteric and conjunctiva were pink and moist. Extraocular movements were intact and pupils were equal round and reactive to light. Eyelids were unremarkable. PULMONARY: Unlabored respirations. Good breath sounds bilaterally. No audible rales rhonchi or wheezing was noted. CARDIOVASCULAR: There is a regular rate and rhythm without any murmurs gallops or rubs. ABDOMEN: Soft and nontender with normal bowel sounds. SKIN: Skin is clear with no lesions or rashes and otherwise unremarkable. NEUROLOGIC: Patient is alert and oriented x3. Cranial nerves II through XII are grossly intact. Motor and sensory are also intact. Normal speech, volume and content. Symmetrical smile. MUSCULOSKELETAL: Normal extremities with adequate strength and full range of motion. LYMPHATICS: No significant lymphadenopathy is noted PSYCHIATRIC: Normal psychiatric evaluation. Limitations: altered mental status Course Vital Signs 10/20/18 07:06 Temperature 103.1 F H Pulse Rate 87 Respiratory 22 Rate Blood Pressure 141/67 O2 Sat by Pulse 98 Oximetry Medical Decision Making - Medical Decision Making EKG shows a normal sinus rhythm at 87 bpm [place] interval 268 QRSs 120 QT intervals 400 QTC is 41. Patient's EKG shows a right bundle branch block. Patient's EKG is compared to an old EKG in no acute changes are noted. Chest x-ray shows no acute abnormality. I went back into the room on 2 different occasions and the patient was having no complaints at this time. Patient denied any chest pain or abdominal pain. I spoke with Dr. alvarez and he agreed to admit the patient admitted the patient wrote admitting orders I consulted infectious disease. I consult to cardiology. - Lab Data Result diagrams: 10/20/18 07:15 10/20/18 07:15 Lab Results 10/20/18 10/20/18 10/20/18 Range/Units 07:15 07:15 07:15 WBC 8.0 (3.8-10.6) k/uL RBC 4.32 (4.30-5.90) m/uL Hgb 13.8 (13.0-17.5) gm/dL Hct 42.5 (39.0-53.0) % MCV 98.3 (80.0-100.0) fL MCH 32.0 (25.0-35.0) pg MCHC 32.5 (31.0-37.0) g/dL RDW 14.7 (11.5-15.5) % Plt Count 78 L (150-450) k/uL Neutrophils % 85 % Lymphocytes % 8 % Monocytes % 5 % Eosinophils % 1 % Basophils % 0 % Neutrophils # 6.8 (1.3-7.7) k/uL Lymphocytes # 0.6 L (1.0-4.8) k/uL Monocytes # 0.4 (0-1.0) k/uL Eosinophils # 0.1 (0-0.7) k/uL Basophils # 0.0 (0-0.2) k/uL PT (9.0-12.0) sec INR (<1.2) APTT (22.0-30.0) sec Sodium 141 (137-145) mmol/L Potassium 4.2 (3.5-5.1) mmol/L Chloride 106 (98-107) mmol/L Carbon Dioxide 26 (22-30) mmol/L Anion Gap 9 mmol/L BUN 13 (9-20) mg/dL Creatinine 0.83 (0.66-1.25) mg/dL Est GFR (CKD-EPI)AfAm >90 (>60 ml/min/1.73 sqM) Est GFR (CKD-EPI)NonAf 89 (>60 ml/min/1.73 sqM) Glucose 136 H (74-99) mg/dL Plasma Lactic Acid Evgeny (0.7-2.0) mmol/L Calcium 9.6 (8.4-10.2) mg/dL Total Bilirubin 1.4 H (0.2-1.3) mg/dL AST 37 (17-59) U/L ALT 42 (21-72) U/L Alkaline Phosphatase 82 (38-126) U/L Total Creatine Kinase 35 L (55-170) U/L CK-MB (CK-2) 1.3 (0.0-2.4) ng/mL CK-MB (CK-2) Rel Index 3.7 Troponin I <0.012 (0.000-0.034) ng/mL Total Protein 7.3 (6.3-8.2) g/dL Albumin 4.2 (3.5-5.0) g/dL Urine Color Urine Appearance (Clear) Urine pH (5.0-8.0) Ur Specific Ellinger (1.001-1.035) Urine Protein (Negative) Urine Glucose (UA) (Negative) Urine Ketones (Negative) Urine Blood (Negative) Urine Nitrite (Negative) Urine Bilirubin (Negative) Urine Urobilinogen (<2.0) mg/dL Ur Leukocyte Esterase (Negative) Urine RBC (0-5) /hpf Urine WBC (0-5) /hpf Urine Mucus (None) /hpf Influenza Type A RNA (Not Detectd) Influenza Type B (PCR) (Not Detectd) 10/20/18 10/20/1818 Range/Units 07:15 07:15 07:35 WBC (3.8-10.6) k/uL RBC (4.30-5.90) m/uL Hgb (13.0-17.5) gm/dL Hct (39.0-53.0) % MCV (80.0-100.0) fL MCH (25.0-35.0) pg MCHC (31.0-37.0) g/dL RDW (11.5-15.5) % Plt Count (150-450) k/uL Neutrophils % % Lymphocytes % % Monocytes % % Eosinophils % % Basophils % % Neutrophils # (1.3-7.7) k/uL Lymphocytes # (1.0-4.8) k/uL Monocytes # (0-1.0) k/uL Eosinophils # (0-0.7) k/uL Basophils # (0-0.2) k/uL PT 10.9 (9.0-12.0) sec INR 1.1 (<1.2) APTT 22.8 (22.0-30.0) sec Sodium (137-145) mmol/L Potassium (3.5-5.1) mmol/L Chloride (98-107) mmol/L Carbon Dioxide (22-30) mmol/L Anion Gap mmol/L BUN (9-20) mg/dL Creatinine (0.66-1.25) mg/dL Est GFR (CKD-EPI)AfAm (>60 ml/min/1.73 sqM) Est GFR (CKD-EPI)NonAf (>60 ml/min/1.73 sqM) Glucose (74-99) mg/dL Plasma Lactic Acid Evgeny 2.8 H* (0.7-2.0) mmol/L Calcium (8.4-10.2) mg/dL Total Bilirubin (0.2-1.3) mg/dL AST (17-59) U/L ALT (21-72) U/L Alkaline Phosphatase (38-126) U/L Total Creatine Kinase (55-170) U/L CK-MB (CK-2) (0.0-2.4) ng/mL CK-MB (CK-2) Rel Index Troponin I (0.000-0.034) ng/mL Total Protein (6.3-8.2) g/dL Albumin (3.5-5.0) g/dL Urine Color Urine Appearance (Clear) Urine pH (5.0-8.0) Ur Specific Ellinger (1.001-1.035) Urine Protein (Negative) Urine Glucose (UA) (Negative) Urine Ketones (Negative) Urine Blood (Negative) Urine Nitrite (Negative) Urine Bilirubin (Negative) Urine Urobilinogen (<2.0) mg/dL Ur Leukocyte Esterase (Negative) Urine RBC (0-5) /hpf Urine WBC (0-5) /hpf Urine Mucus (None) /hpf Influenza Type A RNA Not Detected (Not Detectd) Influenza Type B (PCR) Not Detected (Not Detectd) 10/20/18 Range/Units 08:20 WBC (3.8-10.6) k/uL RBC (4.30-5.90) m/uL Hgb (13.0-17.5) gm/dL Hct (39.0-53.0) % MCV (80.0-100.0) fL MCH (25.0-35.0) pg MCHC (31.0-37.0) g/dL RDW (11.5-15.5) % Plt Count (150-450) k/uL Neutrophils % % Lymphocytes % % Monocytes % % Eosinophils % % Basophils % % Neutrophils # (1.3-7.7) k/uL Lymphocytes # (1.0-4.8) k/uL Monocytes # (0-1.0) k/uL Eosinophils # (0-0.7) k/uL Basophils # (0-0.2) k/uL PT (9.0-12.0) sec INR (<1.2) APTT (22.0-30.0) sec Sodium (137-145) mmol/L Potassium (3.5-5.1) mmol/L Chloride (98-107) mmol/L Carbon Dioxide (22-30) mmol/L Anion Gap mmol/L BUN (9-20) mg/dL Creatinine (0.66-1.25) mg/dL Est GFR (CKD-EPI)AfAm (>60 ml/min/1.73 sqM) Est GFR (CKD-EPI)NonAf (>60 ml/min/1.73 sqM) Glucose (74-99) mg/dL Plasma Lactic Acid Evgeny (0.7-2.0) mmol/L Calcium (8.4-10.2) mg/dL Total Bilirubin (0.2-1.3) mg/dL AST (17-59) U/L ALT (21-72) U/L Alkaline Phosphatase (38-126) U/L Total Creatine Kinase (55-170) U/L CK-MB (CK-2) (0.0-2.4) ng/mL CK-MB (CK-2) Rel Index Troponin I (0.000-0.034) ng/mL Total Protein (6.3-8.2) g/dL Albumin (3.5-5.0) g/dL Urine Color Yellow Urine Appearance Clear (Clear) Urine pH 7.0 (5.0-8.0) Ur Specific Ellinger 1.017 (1.001-1.035) Urine Protein Trace H (Negative) Urine Glucose (UA) Negative (Negative) Urine Ketones Negative (Negative) Urine Blood Trace H (Negative) Urine Nitrite Negative (Negative) Urine Bilirubin Negative (Negative) Urine Urobilinogen <2.0 (<2.0) mg/dL Ur Leukocyte Esterase Negative (Negative) Urine RBC 6 H (0-5) /hpf Urine WBC 1 (0-5) /hpf Urine Mucus Rare H (None) /hpf Influenza Type A RNA (Not Detectd) Influenza Type B (PCR) (Not Detectd) Disposition Clinical Impression: Chest pain, Febrile illness Disposition: ADMITTED IP TO THIS HOSP Referrals: Carrie Izaguirre MD [Primary Care Provider] - 1-2 days Time of Disposition: 08:59
[2018-10-20] MEDS: SODIUM CHLORIDE 0.9% 500 ML 500 ML IV SCH (07:37)
[2018-10-20 07:43] LABS: Basophils % (A) 0 %; Eosinophils # (A) 0.1 k/uL (0-0.7); Eosinophils % (A) 1 %; HCT 42.5 % (39.0-53.0); HGB 13.8 gm/dL (13.0-17.5); Lymphocytes # (A) 0.6 k/uL (1.0-4.8); Lymphocytes % (A) 8 %; MCHC 32.5 g/dL (31.0-37.0); MCV 98.3 fL (80.0-100.0); Mean Platelet Volume 8.2; Monocytes # (A) 0.4 k/uL (0-1.0); Monocytes % (A) 5 %; Neutrophils # (A) 6.8 k/uL (1.3-7.7); Neutrophils % (A) 85 %; RBC 4.32 m/uL (4.30-5.90); RDW 14.7 % (11.5-15.5)
[2018-10-20 07:47] LABS: ALT 42 U/L (21-72); AST 37 U/L (17-59); Albumin 4.2 g/dL (3.5-5.0); Alkaline Phosphatase 82 U/L (38-126); Anion Gap 9 mmol/L; Blood Urea Nitrogen 13 mg/dL (9-20); Calcium 9.6 mg/dL (8.4-10.2); Carbon Dioxide 26 mmol/L (22-30); Chloride 106 mmol/L (98-107); Glucose 136 mg/dL (74-99); Potassium 4.2 mmol/L (3.5-5.1); Sodium 141 mmol/L (137-145); Total Bilirubin 1.4 mg/dL (0.2-1.3); Total Protein 7.3 g/dL (6.3-8.2)
[2018-10-20 07:55] LABS: Platelet Count 78 k/uL (150-450)
[2018-10-20 07:58] LABS: Creatine Kinase 35 U/L (55-170); INR 1.1 (<1.2); Partial Thromboplastin Time 22.8 sec (22.0-30.0); Prothrombin Time 10.9 sec (9.0-12.0)
[2018-10-20 08:11] LABS: Creatine Kinase MB 1.3 ng/mL (0.0-2.4); Troponin I <0.012 ng/mL (0.000-0.034)
--- NOTE | 2018-10-20 08:17 | XR ---
EXAMINATION TYPE: XR chest 2V DATE OF EXAM: 10/20/2018 COMPARISON: July 18, 2018 HISTORY: Shortness of breath TECHNIQUE: Frontal and lateral views of the chest are obtained. FINDINGS: Scattered senescent parenchymal changes noted. Hyperinflation compatible with COPD. No evidence for infiltrate. No evidence for atelectasis. Stable strandy density right medial lung bas e. Heart size is stable. Mediastinal structures are stable and grossly unremarkable. No evidence for hilar prominence. Degenerative changes dorsal spine. IMPRESSION: 1. No evidence for acute pulmonary disease.
[2018-10-20 08:48] LABS: Appearance,Urine Clear (Clear); Bilirubin,Urine Negative (Negative); Blood,Urine Trace (Negative); Color,Urine Yellow; Glucose,Urine (UA) Negative (Negative); Ketones,Urine Negative (Negative); Leukocyte Esterase,Urine Negative (Negative); Mucus,Urine Rare /hpf; Nitrite,Urine Negative (Negative); Protein,Urine Trace (Negative); RBC,Urine 6 /hpf (0-5); Specific Gravity,Urine 1.017 (1.001-1.035); Urobilinogen,Urine <2.0 mg/dL (<2.0); WBC,Urine 1 /hpf (0-5)
[2018-10-20] MEDS ORDERED: NITROGLYCERIN SL TABS 0.4 MG TAB SUBLINGUAL PRN (09:02)
[2018-10-20 13:27] LABS: Creatine Kinase 30 U/L (55-170)
--- NOTE | 2018-10-20 13:34 | P.HPIM ---
History of Present Illness This is a pleasant 73 years old male with past medical history of heart failure , coronary artery disease, ischemic cardiomyopathy diabetes mellitus, GERD, hyperlipidemia, hypertension, status post cardiac cath with stent placement who presents because of chest pain patient states that 1:00 this morning he woke up feeling cold associated with central chest pain that lasted for 10-15 minutes. Was severe, felt like pressure or squeezing similar to his old heart attack. Does not smoke of shortness of breath. He has some nausea but no vomiting. Has some sweating with chills. In the emergency room he had a temperature of 1 or 3.1 (please refer to emergency room physician not) , however no other fever was charted. No leukocytosis. Creatinine was 0.8. His lactic lactic acid was 2.8. Total bilirubin is 1.4. Patient already got ceftriaxone in the emergency room. He was started on normal saline at 100 L/h. Review of Systems CONSTITUTIONAL: No fever, no malaise, no fatigue. HEENT: No recent visual problems or hearing problems. Denied any sore throat. CARDIOVASCULAR: No orthopnea, PND, no palpitations, no syncope. PULMONARY: No shortness of breath, no cough, no hemoptysis. GASTROINTESTINAL: No diarrhea, no nausea, no vomiting, no abdominal pain. Normoactive bowel sounds. NEUROLOGICAL: No headaches, no weakness, no numbness. HEMATOLOGICAL: Denies any bleeding or petechiae. GENITOURINARY: Denies any burning micturition, frequency, or urgency. MUSCULOSKELETAL/RHEUMATOLOGICAL: Denies any joint pain, swelling, or any muscle pain. ENDOCRINE: Denies any polyuria or polydipsia. Past Medical History Past Medical History: Coronary Artery Disease (CAD), Chest Pain / Angina, Heart Failure, Diabetes Mellitus, GERD/Reflux, Hyperlipidemia, Hypertension, Myocardial Infarction ([place]), Pneumonia, Vascular Disorder Additional Past Medical History / Comment(s): Ischemic cardiomyopathy, nonsustained ventriclar arrhythmia, systolic heart failure, [place] x 2 in 2001 and 1994, 06/2018 acute cellulitis 2ndary to local trauma L kneecap, kidney stones which pt believes he passed, gout bilateral feet toes. Last Myocardial Infarction Date:: 2001 History of Any Multi-Drug Resistant Organisms: None Reported Past Surgical History: Heart Catheterization, Heart Catheterization With Stent, Joint Replacement, Orthopedic Surgery Additional Past Surgical History / Comment(s): PCIs with a total of 6 stents per patient, cardiac ablation-AVRNT, EPS, R knee arthroscopy, bilateral total knee replacements with L side done twice, bilateral shoulder rotator cuff surgeries with L side done 3 times, L ankle surgery, bilateral carpal tunnel releases. Past Anesthesia/Blood Transfusion Reactions: No Reported Reaction Date of Last Stent Placement:: 02/10/17 Smoking Status: Former smoker - Past Family History Father History Unknown: Yes Additional Family Medical History / Comment(s): Pt does not know his father's history. His parents were . Mother History Unknown: Yes Family Medical History: Cancer Additional Family Medical History / Comment(s): Pt states mother had some form of cancer which she from. Medications and Allergies Home Medications Medication Instructions Recorded Confirmed Type Allopurinol [Zyloprim] 300 mg PO DAILY 06/07/14 10/20/18 History Insulin NPH Hum/Reg Insulin Hm 10 unit SQ AC-SUPPER 06/07/14 10/20/18 History [NovoLIN 70-30 100 UNIT/ML VIAL] Isosorbide Mononitrate [Imdur] 30 mg PO DAILY 06/07/14 10/20/18 History metFORMIN HCL 1,000 mg PO BID 06/07/14 10/20/18 History Ferrous Sulfate [Iron (65 MG 325 mg PO DAILY 03/07/16 10/20/18 History Elemental)] Spironolactone [Aldactone] 25 mg PO DAILY #30 tab 03/09/16 10/20/18 Rx Atorvastatin [Lipitor] 20 mg PO HS 07/21/17 10/20/18 History Carvedilol [Coreg] 12.5 mg PO BID 07/21/17 10/20/18 History Insulin NPH Hum/Reg Insulin Hm 20 unit SQ AC-BRKFST #0 07/29/17 10/20/18 Rx [NovoLIN 70-30 100 UNIT/ML VIAL] Acetaminophen [Tylenol Extra 500 mg PO Q4H PRN 10/20/18 10/20/18 History Strength] Aspirin 325 mg PO DAILY 10/20/18 10/20/18 History Allergies Allergy/AdvReac Type Severity Reaction Status Date / Time No Known Allergies Allergy Verified 10/20/18 08:35 Physical Exam Vitals: Vital Signs Temp Pulse Resp BP Pulse Ox 10/20/18 12:00 66 15 104/51 94 L 10/20/18 11:30 70 16 111/42 94 L 10/20/18 11:00 68 17 110/60 96 10/20/18 10:30 67 18 122/65 96 10/20/18 10:00 74 17 108/36 95 10/20/18 09:40 21 108/36 97 10/20/18 08:30 78 18 113/64 97 10/20/18 07:30 72 18 129/67 96 10/20/18 07:06 103.1 F H 87 22 141/67 98 Intake and Output 10/19/18 10/20/18 10/20/18 22:59 06:59 14:59 Other: Weight 106.594 kg GENERAL: The patient is alert and oriented x3, not in any acute distress. Well developed, well nourished. Obese HEENT: Pupils are round and equally reacting to light. EOMI. No scleral icterus. No conjunctival pallor. Normocephalic, atraumatic. No pharyngeal erythema. No thyromegaly. CARDIOVASCULAR: S1 and S2 present. No murmurs, rubs, or gallops. PULMONARY: Chest is clear to auscultation, no wheezing or crackles. ABDOMEN: Soft, nontender, nondistended, normoactive bowel sounds. No palpable organomegaly. MUSCULOSKELETAL: No joint swelling or deformity. EXTREMITIES: No cyanosis, clubbing, or pedal edema. NEUROLOGICAL: Gross neurological examination did not reveal any focal deficits. SKIN: No rashes. Results CBC & Chem 7: 10/20/18 07:15 10/20/18 07:15 Labs: Abnormal Lab Results - Last 24 Hours (Table) 10/20/18 10/20/18 10/20/18 Range/Units 07:15 07:15 07:15 Plt Count 78 L (150-450) k/uL Lymphocytes # 0.6 L (1.0-4.8) k/uL Glucose 136 H (74-99) mg/dL Plasma Lactic Acid Evgeny (0.7-2.0) mmol/L Total Bilirubin 1.4 H (0.2-1.3) mg/dL Total Creatine Kinase 35 L (55-170) U/L Urine Protein (Negative) Urine Blood (Negative) Urine RBC (0-5) /hpf Urine Mucus (None) /hpf 10/20/18 10/20/18 Range/Units 07:15 08:20 Plt Count (150-450) k/uL Lymphocytes # (1.0-4.8) k/uL Glucose (74-99) mg/dL Plasma Lactic Acid Evgeny 2.8 H* (0.7-2.0) mmol/L Total Bilirubin (0.2-1.3) mg/dL Total Creatine Kinase (55-170) U/L Urine Protein Trace H (Negative) Urine Blood Trace H (Negative) Urine RBC 6 H (0-5) /hpf Urine Mucus Rare H (None) /hpf Thrombosis Risk Factor Assmnt - Choose All That Apply Any of the Below Risk Factors Present?: Yes Each Factor Represents 1 point: Obesity (BMI >25) Other Risk Factors: Yes Each Risk Factor Represents 2 Points: Age 61-74 years Other congenital or acquired thrombophilia - If yes, enter type in comment: No Thrombosis Risk Factor Assessment Total Risk Factor Score: 3 Thrombosis Risk Factor Assessment Level: Moderate Risk Assessment and Plan Assessment: Chest pain, rule out cardiac causes Fever of unknown source. High lactic acid History of ischemic cardiomyopathy History of coronary artery disease, status post stent placement Diabetes mellitus GERD Hyperlipidemia Essential hypertension Plan: This is a pleasant 73 years old male who presents because of chest pain, and fever. Admitted to the general medical floor, continue with aspirin. Call cardiology consult. Infectious team consult. Continue with IV fluids. Antibiotics are per ID team. Labs and medication were reviewed.. Continue same treatment. Continue with symptomatic treatment. Resume home medication. Monitor lytes and vitals. DVT and GI prophylaxis. Further recommendations of the clinical course of the patient DVT prophylaxis: Subcutaneous heparin GI Prophylaxis: Pepcid PT/OT: Pending Prognosis is guarded
[2018-10-20 13:38] LABS: Creatine Kinase MB 0.9 ng/mL (0.0-2.4); Troponin I <0.012 ng/mL (0.000-0.034)
[2018-10-20 15:09] LABS: Albumin 3.9 g/dL (3.5-5.0); Bilirubin, Delta 0.5 mg/dL (0.0-0.2); Bilirubin,Unconjugated 1.4 mg/dL (0.0-1.1); Total Bilirubin 1.9 mg/dL (0.2-1.3); Total Protein 6.8 g/dL (6.3-8.2)
[2018-10-20 16:21] LABS: Glucose,Whole Blood 112 mg/dL (75-99)
[2018-10-20] MEDS: NITROGLYCERIN OINT 1 INCH/GM PACKET TOPICAL SCH ×2 (17:15→17:41)
[2018-10-20] MEDS: HEPARIN SODIUM,PORCINE 5,000 UNIT/ML 1 ML VIAL SQ SCH ×2 (17:16→20:17)
[2018-10-20] MEDS: PIPERACILLIN-TAZOBACTAM 3.375 GM in SODIUM CHLORIDE 0.9% 100 ML IVPB SCH (17:42)
[2018-10-20] MEDS: ACETAMINOPHEN TAB 325 MG TAB PO PRN (18:55)
[2018-10-20] MEDS: SODIUM CHLORIDE 0.9% 1,000 ML IV SCH (18:57)
[2018-10-20 19:11] LABS: Creatine Kinase 36 U/L (55-170)
[2018-10-20 19:24] LABS: Creatine Kinase MB 0.8 ng/mL (0.0-2.4); Troponin I <0.012 ng/mL (0.000-0.034)
[2018-10-20 20:12] LABS: Glucose,Whole Blood 136 mg/dL (75-99)
[2018-10-20] MEDS: FAMOTIDINE 20 MG/2 ML VIAL IV SCH (20:19)
--- NOTE | 2018-10-20 21:34 | P.CONS ---
History of Present Illness - Reason for Consult Consult date: 10/20/18 - Chief Complaint Weakness chest pain and abdominal pain - History of Present Illness Pleasant 73-year-old male known to the service from prior care for lower extremity ulceration years ago. Now presents after awakening at 1:00 AM feeling very poorly with discomforts in his chest and chest pressure. He has some shortness of breath also. He was feeling poorly and is a hours went by he noticed that he became very cold and developed chills and what appears to be a brief rigor. By the morning he was feeling so poorly he decided to come to the emergency center without evidence of temperature 103.1 and appear to be acutely ill. The patient's been admitted for sepsis and with this the infectious diseases consultation was requested. This chest x-ray was negative and cardiac workup was negative also at the time of admission. However the patient relates that she sitting upright that he is having some abdominal discomfort. He is not having nausea or emesis relates that he's had some chronic diarrhea over quite some time. It has not changed as of late. He's had no hematemesis melena or hematochezia. He does feel very poorly still at this point in time and believes his abdomen feels worse now than at admission. The records are reviewed he does have a known history of prior diverticulitis as well as nephrolithiasis with infection. Review of Systems 73-year-old male with obesity who was uncomfortable and acutely ill in appearance HEENT:Denies headache or acute visual change. Denies sinus or mouth discomforts. Denies neck stiffness or pain. Denies significant oral cavity pain. Denies difficulty on swallowing. Lungs: Discomfort in his chest is improving his shortness of breath is at baseline although he does appear to be winded denies sputum production or significant cough and no hemoptysis Cardiovascular: Complains of dyspnea with exertion but is not having chest pain at this time but did at admission. No syncope no orthopnea Gastrointestinal:Denies nausea, vomiting, change in the character of his diarrhea, constipation, hematemesis, melena, hematochezia. As per the H&P that was been complaining of abdominal pain Musculoskeletal: denies significant myalgias or arthralgias. No new joint swelling. Denies new back pain. Skin: Denies new rash or lesions. No new ulcers or wounds are related.. Neuro: Denies headache or visual change. Denies any new onset weakness or difficulty with ambulation. Denies falls or seizures. Psychiatric:Denies anxiety or depression. Endocrine: He has fatigue and weight gain has occurred over time Past Medical History Past Medical History: Coronary Artery Disease (CAD), Chest Pain / Angina, Heart Failure, Diabetes Mellitus, GERD/Reflux, Hyperlipidemia, Hypertension, Myocardial Infarction ([place]), Pneumonia, Vascular Disorder Additional Past Medical History / Comment(s): Ischemic cardiomyopathy, nonsustained ventriclar arrhythmia, systolic heart failure, [place] x 2 in 2001 and 1994, 06/2018 acute cellulitis 2ndary to local trauma L kneecap, kidney stones which pt believes he passed, gout bilateral feet toes. Last Myocardial Infarction Date:: 2001 History of Any Multi-Drug Resistant Organisms: None Reported Past Surgical History: Heart Catheterization, Heart Catheterization With Stent, Joint Replacement, Orthopedic Surgery Additional Past Surgical History / Comment(s): PCIs with a total of 6 stents per patient, cardiac ablation-AVRNT, EPS, R knee arthroscopy, bilateral total knee replacements with L side done twice, bilateral shoulder rotator cuff surgeries with L side done 3 times, L ankle surgery, bilateral carpal tunnel releases. Past Anesthesia/Blood Transfusion Reactions: No Reported Reaction Date of Last Stent Placement:: 02/10/17 Additional Psychological History / Comment(s): Is , of cardiovascular disease in April still actively dealing with the grief. No experience. No travel. retired. Pet dog in the home. Stopped smoking several years ago Smoking Status: Former smoker - Past Family History Father History Unknown: Yes Additional Family Medical History / Comment(s): Pt does not know his father's history. His parents were . Mother History Unknown: Yes Family Medical History: Cancer Additional Family Medical History / Comment(s): Pt states mother had some form of cancer which she from. Medications and Allergies Home Medications and Allergies Comment(s): Current Medications Acetaminophen (Tylenol Tab) 650 mg PO Q6HR PRN PRN Reason: Fever and/ or Mild Pain Last Admin: 10/20/18 18:55 Dose: 650 mg Aspirin (Aspirin) 325 mg PO DAILY BRINDA Famotidine (Pepcid) 20 mg IV Q12HR BRINDA Last Admin: 10/20/18 20:19 Dose: 20 mg Heparin Sodium (Porcine) (Heparin) 5,000 unit SQ Q12HR PENDING SALE TO [facility] Last Admin: 10/20/18 20:17 Dose: 5,000 unit Sodium Chloride (Saline 0.9%) 1,000 mls @ 100 mls/hr IV .Q10H PENDING SALE TO [facility] Last Admin: 10/20/18 18:57 Dose: 100 mls/hr Piperacillin Sod/Tazobactam (Sod 3.375 gm/ Sodium Chloride) 100 mls @ 25 mls/ hr IVPB Q8HR PENDING SALE TO [facility] Last Admin: 10/20/18 17:42 Dose: 25 mls/hr Nitroglycerin (Nitro-Bid Oint) 1 inch TOPICAL Q6HR PENDING SALE TO [facility] Last Admin: 10/20/18 17:41 Dose: 1 inch Nitroglycerin (Nitrostat) 0.4 mg SUBLINGUAL Q5M PRN PRN Reason: Chest Pain Home Medications Medication Instructions Recorded Confirmed Type Allopurinol [Zyloprim] 300 mg PO DAILY 06/07/14 10/20/18 History Insulin NPH Hum/Reg Insulin Hm 10 unit SQ AC-SUPPER 06/07/14 10/20/18 History [NovoLIN 70-30 100 UNIT/ML VIAL] Isosorbide Mononitrate [Imdur] 30 mg PO DAILY 06/07/14 10/20/18 History metFORMIN HCL 1,000 mg PO BID 06/07/14 10/20/18 History Ferrous Sulfate [Iron (65 MG 325 mg PO DAILY 03/07/16 10/20/18 History Elemental)] Spironolactone [Aldactone] 25 mg PO DAILY #30 tab 03/09/16 10/20/18 Rx Atorvastatin [Lipitor] 20 mg PO HS 07/21/17 10/20/18 History Carvedilol [Coreg] 12.5 mg PO BID 07/21/17 10/20/18 History Insulin NPH Hum/Reg Insulin Hm 20 unit SQ AC-BRKFST #0 07/29/17 10/20/18 Rx [NovoLIN 70-30 100 UNIT/ML VIAL] Acetaminophen [Tylenol Extra 500 mg PO Q4H PRN 10/20/18 10/20/18 History Strength] Aspirin 325 mg PO DAILY 10/20/18 10/20/18 History Allergies Allergy/AdvReac Type Severity Reaction Status Date / Time No Known Allergies Allergy Verified 10/20/18 08:35 Physical Exam Vitals: Vital Signs Temp Pulse Pulse Resp BP BP Pulse Ox 10/20/18 17:59 102.0 F H 10/20/18 16:19 84 17 10/20/18 16:07 98.8 F 84 17 148/67 97 10/20/18 12:00 66 15 104/51 94 L 10/20/18 11:30 70 16 111/42 94 L 10/20/18 11:00 68 17 110/60 96 10/20/18 10:30 67 18 122/65 96 10/20/18 10:00 74 17 108/36 95 10/20/18 09:40 21 108/36 97 10/20/18 08:30 78 18 113/64 97 10/20/18 07:30 72 18 129/67 96 10/20/18 07:06 103.1 F H 87 22 141/67 98 Intake and Output 10/20/18 10/20/18 10/20/18 06:59 14:59 22:59 Intake Total 120 480 Balance 120 480 Intake: Oral 120 480 Other: # Voids 1 Weight 106.594 kg Pleasant 73-year-old male with obesity who appears to be acutely ill HEENT: Anicteric conjunctiva are pink and moist nasal mucosa grossly intact without significant lesions, there is no thrush. Neck: The neck is supple without significant lymphadenopathy or thyromegaly. Lungs: Good bilateral air entry without significant crackles or wheezing. There is no significant bronchial sounds. There is no egophony or dullness. Heart: Regular rate and rhythm with an audible S1-S2, no S3 no S4. There is no significant murmur click or rub, PMI was nondisplaced. Abdomen: Positive bowel sounds soft and nontender without palpable masses or organomegaly. There was no guarding or rebound. There is some abdominal tenderness in the right upper quadrant Extremities: The upper extremities have excellent pulses they are symmetric, no significant petechiae or telangiectasia. No splinter hemorrhages were noted. The lower extremities are free from significant edema. The peripheral pulses were 2+ and symmetric. Neuro: Awake alert oriented to person place and time. There are no acute new gross focal sensory motor deficits. Results CBC & Chem 7: 10/20/18 07:15 10/20/18 07:15 Labs: Abnormal Lab Results - Last 24 Hours (Table) 10/20/18 10/20/18 10/20/18 Range/Units 07:15 07:15 07:15 Plt Count 78 L (150-450) k/uL Lymphocytes # 0.6 L (1.0-4.8) k/uL Glucose 136 H (74-99) mg/dL POC Glucose (mg/dL) (75-99) mg/dL Plasma Lactic Acid Evgeny (0.7-2.0) mmol/L Total Bilirubin 1.4 H (0.2-1.3) mg/dL Unconjugated Bilirubin (0.0-1.1) mg/dL Delta Bilirubin (0.0-0.2) mg/dL Total Creatine Kinase 35 L (55-170) U/L Urine Protein (Negative) Urine Blood (Negative) Urine RBC (0-5) /hpf Urine Mucus (None) /hpf 10/20/18 10/20/18 10/20/18 Range/Units 07:15 08:20 12:37 Plt Count (150-450) k/uL Lymphocytes # (1.0-4.8) k/uL Glucose (74-99) mg/dL POC Glucose (mg/dL) (75-99) mg/dL Plasma Lactic Acid Evgeny 2.8 H* (0.7-2.0) mmol/L Total Bilirubin (0.2-1.3) mg/dL Unconjugated Bilirubin (0.0-1.1) mg/dL Delta Bilirubin (0.0-0.2) mg/dL Total Creatine Kinase 30 L (55-170) U/L Urine Protein Trace H (Negative) Urine Blood Trace H (Negative) Urine RBC 6 H (0-5) /hpf Urine Mucus Rare H (None) /hpf 10/20/18 10/20/18 10/20/18 Range/Units 12:37 14:07 16:10 Plt Count (150-450) k/uL Lymphocytes # (1.0-4.8) k/uL Glucose (74-99) mg/dL POC Glucose (mg/dL) 112 H (75-99) mg/dL Plasma Lactic Acid Evgeny 2.4 H* (0.7-2.0) mmol/L Total Bilirubin 1.9 H (0.2-1.3) mg/dL Unconjugated Bilirubin 1.4 H (0.0-1.1) mg/dL Delta Bilirubin 0.5 H (0.0-0.2) mg/dL Total Creatine Kinase (55-170) U/L Urine Protein (Negative) Urine Blood (Negative) Urine RBC (0-5) /hpf Urine Mucus (None) /hpf 10/20/18 10/20/18 10/20/18 Range/Units 18:35 19:52 20:38 Plt Count (150-450) k/uL Lymphocytes # (1.0-4.8) k/uL Glucose (74-99) mg/dL POC Glucose (mg/dL) 136 H (75-99) mg/dL Plasma Lactic Acid Evgeny 2.3 H* (0.7-2.0) mmol/L Total Bilirubin (0.2-1.3) mg/dL Unconjugated Bilirubin (0.0-1.1) mg/dL Delta Bilirubin (0.0-0.2) mg/dL Total Creatine Kinase 36 L (55-170) U/L Urine Protein (Negative) Urine Blood (Negative) Urine RBC (0-5) /hpf Urine Mucus (None) /hpf Microbiology - Last 24 Hours (Table) 10/20/18 07:15 Blood Culture Gram Stain - Preliminary Blood Blood Culture - Preliminary 10/20/18 07:15 Blood Culture - Final Blood 10/20/18 08:20 Urine Culture - Preliminary Urine,Catheterized Laboratory Results WBC 8.0 k/uL (3.8-10.6) 10/20/18 07:15 RBC 4.32 m/uL (4.30-5.90) 10/20/18 07:15 Hgb 13.8 gm/dL (13.0-17.5) 10/20/18 07:15 Hct 42.5 % (39.0-53.0) 10/20/18 07:15 MCV 98.3 fL (80.0-100.0) 10/20/18 07:15 MCH 32.0 pg (25.0-35.0) 10/20/18 07:15 MCHC 32.5 g/dL (31.0-37.0) 10/20/18 07:15 RDW 14.7 % (11.5-15.5) 10/20/18 07:15 Plt Count 78 k/uL (150-450) L 10/20/18 07:15 Neutrophils % 85 % 10/20/18 07:15 Lymphocytes % 8 % 10/20/18 07:15 Monocytes % 5 % 10/20/18 07:15 Eosinophils % 1 % 10/20/18 07:15 Basophils % 0 % 10/20/18 07:15 Neutrophils # 6.8 k/uL (1.3-7.7) 10/20/18 07:15 Lymphocytes # 0.6 k/uL (1.0-4.8) L 10/20/18 07:15 Monocytes # 0.4 k/uL (0-1.0) 10/20/18 07:15 Eosinophils # 0.1 k/uL (0-0.7) 10/20/18 07:15 Basophils # 0.0 k/uL (0-0.2) 10/20/18 07:15 PT 10.9 sec (9.0-12.0) 10/20/18 07:15 INR 1.1 (<1.2) 10/20/18 07:15 APTT 22.8 sec (22.0-30.0) 10/20/18 07:15 Sodium 141 mmol/L (137-145) 10/20/18 07:15 Potassium 4.2 mmol/L (3.5-5.1) 10/20/18 07:15 Chloride 106 mmol/L (98-107) 10/20/18 07:15 Carbon Dioxide 26 mmol/L (22-30) 10/20/18 07:15 Anion Gap 9 mmol/L 10/20/18 07:15 BUN 13 mg/dL (9-20) 10/20/18 07:15 Creatinine 0.83 mg/dL (0.66-1.25) 10/20/18 07:15 Est GFR (CKD-EPI)AfAm >90 (>60 ml/min/1.73 sqM) 10/20/18 07:15 Est GFR (CKD-EPI)NonAf 89 (>60 ml/min/1.73 sqM) 10/20/18 07:15 Glucose 136 mg/dL (74-99) H 10/20/18 07:15 POC Glucose (mg/dL) 136 mg/dL (75-99) H 10/20/18 19:52 POC Glu [employer] ID Pimental, Rhyzianne 11/27/18 19:52 Lactic Ac Sepsis Rflx Y 10/20/18 07:51 Plasma Lactic Acid Evgeny 2.3 mmol/L (0.7-2.0) H* 10/20/18 20:38 Calcium 9.6 mg/dL (8.4-10.2) 10/20/18 07:15 Total Bilirubin 1.9 mg/dL (0.2-1.3) H 10/20/18 14:07 Conjugated Bilirubin 0.0 mg/dL (0.0-0.3) 10/20/18 14:07 Unconjugated Bilirubin 1.4 mg/dL (0.0-1.1) H 10/20/18 14:07 Delta Bilirubin 0.5 mg/dL (0.0-0.2) H 10/20/18 14:07 AST 33 U/L (17-59) 10/20/18 14:07 ALT 34 U/L (21-72) 10/20/18 14:07 Alkaline Phosphatase 58 U/L (38-126) 10/20/18 14:07 Total Creatine Kinase 36 U/L (55-170) L 10/20/18 18:35 CK-MB (CK-2) 0.8 ng/mL (0.0-2.4) 10/20/18 18:35 CK-MB (CK-2) Rel Index 2.2 10/20/18 18:35 Troponin I <0.012 ng/mL (0.000-0.034) 10/20/18 18:35 Total Protein 6.8 g/dL (6.3-8.2) 10/20/18 14:07 Albumin 3.9 g/dL (3.5-5.0) 10/20/18 14:07 Urine Color Yellow 10/20/18 08:20 Urine Appearance Clear (Clear) 10/20/18 08:20 Urine pH 7.0 (5.0-8.0) 10/20/18 08:20 Ur Specific Alder 1.017 (1.001-1.035) 10/20/18 08:20 Urine Protein Trace (Negative) H 10/20/18 08:20 Urine Glucose (UA) Negative (Negative) 10/20/18 08:20 Urine Ketones Negative (Negative) 10/20/18 08:20 Urine Blood Trace (Negative) H 10/20/18 08:20 Urine Nitrite Negative (Negative) 10/20/18 08:20 Urine Bilirubin Negative (Negative) 10/20/18 08:20 Urine Urobilinogen <2.0 mg/dL (<2.0) 10/20/18 08:20 Ur Leukocyte Esterase Negative (Negative) 10/20/18 08:20 Urine RBC 6 /hpf (0-5) H 10/20/18 08:20 Urine WBC 1 /hpf (0-5) 10/20/18 08:20 Urine Mucus Rare /hpf (None) H 10/20/18 08:20 Influenza Type A RNA Not Detected (Not Detectd) 10/20/18 07:35 Influenza Type B (PCR) Not Detected (Not Detectd) 10/20/18 07:35 Chest x-ray: image reviewed (No evidence of any acute pneumonia) Assessment and Plan (1) Sepsis Current Visit: Yes Status: Acute Code(s): A41.9 - SEPSIS, UNSPECIFIED ORGANISM SNOMED Code(s): 17480478 (2) Abdominal pain Narrative/Plan: 73-year-old male with a history of underlying cardiovascular disease presents to Hospital with concerns to pain in his chest as well as abdominal pain high- grade fever chills and rigor. At presentation 103 fever was noted patient did not take his temperature at home. However he did have the chills. The patient appears to be acutely ill and concerns to abdominal sepsis as the etiology of his current illness. With elevated total bilirubin and abdominal ultrasound was requested to evaluate his biliary tract and gallbladder as potential source. The patient does have a history also of diverticulitis and with his obesity abdominal exam is somewhat difficult. If ultrasound is none guiding then may require computed tomography scan of his abdomen. Antibiotic therapy is altered to piperacillin tazobactam for coverage of abdominal sepsis, he has no history of MRSA. Cultures will be monitored imaging studies will further direct therapy. If abdominal pain continues may benefit from a surgical consult. Current Visit: Yes Status: Acute Code(s): R10.9 - UNSPECIFIED ABDOMINAL PAIN SNOMED Code(s): 94540216 (3) Fever Current Visit: Yes Status: Acute Code(s): R50.9 - FEVER, UNSPECIFIED SNOMED Code(s): 364766314
--- NOTE | 2018-10-20 22:26 | XR ---
EXAMINATION TYPE: XR abdomen 2V DATE OF EXAM: 10/20/2018 COMPARISON: NONE HISTORY: Abdominal pain TECHNIQUE: 4 views including supine and upright abdomen FINDINGS: Bowel gas pattern is normal. There is no sign of intestinal obstruction or pneumoperitoneum . Fecal pattern is normal. Lung bases are clear of consolidation. There are no pathologic calcificati ons over the kidneys. IMPRESSION: Nonacute abdomen.
[2018-10-21] MEDS: ACETAMINOPHEN TAB 325 MG TAB PO PRN (02:32)
[2018-10-21] MEDS: SODIUM CHLORIDE 0.9% 1,000 ML IV SCH ×3 (02:33→12:40)
[2018-10-21] MEDS: NITROGLYCERIN OINT 1 INCH/GM PACKET TOPICAL SCH ×3 (02:35→12:40)
[2018-10-21 05:42] LABS: Hepatitis A Antibody IgM Non-Reactive (Non-Reactive); Hepatitis B Core IgM Non-Reactive (Non-Reactive)
[2018-10-21 06:38] LABS: Glucose,Whole Blood 127 mg/dL (75-99)
[2018-10-21 06:44] LABS: Basophils % (A) 0 %; Eosinophils % (A) 1 %; HCT 34.9 % (39.0-53.0); Lymphocytes # (A) 0.6 k/uL (1.0-4.8); Lymphocytes % (A) 14 %; MCH 33.3 pg (25.0-35.0); MCHC 34.4 g/dL (31.0-37.0); MCV 96.9 fL (80.0-100.0); Monocytes # (A) 0.3 k/uL (0-1.0); Monocytes % (A) 7 %; Neutrophils % (A) 77 %; RBC 3.61 m/uL (4.30-5.90); RDW 14.5 % (11.5-15.5); WBC 3.9 k/uL (3.8-10.6)
[2018-10-21 06:55] LABS: Anion Gap 8 mmol/L; Blood Urea Nitrogen 12 mg/dL (9-20); Calcium 8.6 mg/dL (8.4-10.2); Carbon Dioxide 24 mmol/L (22-30); Chloride 109 mmol/L (98-107); Cholesterol 95 mg/dL (<200); Glucose 129 mg/dL (74-99); HDL Cholesterol 30 mg/dL (40-60); LDL Cholesterol,Calculated 30 mg/dL (0-99); Potassium 3.8 mmol/L (3.5-5.1); Sodium 141 mmol/L (137-145); Triglycerides 176 mg/dL (<150)
[2018-10-21 07:36] LABS: Platelet Count 55 k/uL (150-450)
--- NOTE | 2018-10-21 08:32 | US ---
EXAMINATION TYPE: US abdomen comp/pelvis limited DATE OF EXAM: 10/21/2018 COMPARISON: Ultrasound 03/08/[address] 07/18/2018 CLINICAL HISTORY: 73-year-old male abdominal pain, enlarged liver, elevated bili. Abnormal labs, ABD pain TECHNIQUE: Multiple sonographic images of the abdomen and bladder are obtained. FINDINGS: EXAM MEASUREMENTS: Liver Length: 19.8 cm Gallbladder Wall: 0.2 cm CBD: 0.3 cm Spleen: 15.6 cm Right Kidney: 12.1 x 5.6 x 5.3 cm Left Kidney: 12.6 x 5.9 x 6.2 cm Attorney General notes:Large pt body habitus, difficult exam Pancreas: Suboptimal visualization of the pancreatic tail secondary to shadowing from bowel gas. Rem ainder appears within normal limits. Liver: Enlarged, heterogeneous, echogenic, and with focal fatty sparing along the gallbladder fossa. Gallbladder: wnl CBD: wnl Spleen: Enlarged Right Kidney: No hydronephrosis. Left Kidney: No hydronephrosis. Upper IVC: wnl Abd Aorta: wnl, distal portion gassed out Bladder: Not fully distended, pt just voided prior to exam RLQ and LLQ also imaged; no ascites fluid or other specific sonographic abnormality could be apprec iated IMPRESSION: 1. Hepatomegaly (19.8 cm) with at least moderate hepatic steatosis. 2. Splenomegaly (15.6 cm). 3. Patient voided prior to the exam. The bladder was collapsed limiting its assessment.
[2018-10-21] MEDS ORDERED: ASPIRIN 325 MG TAB PO SCH (09:00)
[2018-10-21] MEDS: PIPERACILLIN-TAZOBACTAM 3.375 GM in SODIUM CHLORIDE 0.9% 100 ML IVPB SCH ×5 (09:54→22:59)
[2018-10-21] MEDS: FAMOTIDINE 20 MG/2 ML VIAL IV SCH (09:55)
[2018-10-21] MEDS: HEPARIN SODIUM,PORCINE 5,000 UNIT/ML 1 ML VIAL SQ SCH ×2 (09:55→20:35)
[2018-10-21 12:00] LABS: Glucose,Whole Blood 132 mg/dL (75-99)
--- NOTE | 2018-10-21 12:29 | P.CRDCN ---
History of Present Illness Consult date: 10/21/18 Requesting physician: Angel E Sheet Consult reason: chest pain Chief complaint: Chills and chest pain History of present illness: This is a 73-year-old gentleman with known history of coronary artery disease, multivessel CAD, hypertension, diabetes, hyperlipidemia, diabetes, COPD. Most recent cardiac catheterization was performed in January 2017 at which time the patient received the mid RCA stent. Patient also has history of ischemic cardiomyopathy with prior documented ejection fraction of 40%. Voiding to the patient, he states that he woke up around 1:00 in the morning and was feeling extremely cold and chilled, he states that he was also feeling really hot at times, wasn't sure at home if he was experiencing fever. He does state that he also had a pressure sensation in his chest which reminded him of his prior heart attack. For both of these reasons he was brought to the emergency room for further evaluation. His temperature on arrival here was 103.1, heart rate in the 80s, blood pressure 140/60, 98% on room air. He had a subsequent temperature of 102, his temp this morning is 99. Blood pressure 133/ 60 with a heart rate in the 70s, 99% on room air. White blood cell count 8 on admission 3.9 this morning, hemoglobin 12, platelet count 55. Sodium 144, potassium 3.8, BUN 12, creatinine 0.9. Plasma lactic acid 2.3 on admission. Troponins have been negative 3. EKG shows a normal sinus rhythm with a right bundle branch block pattern and nonspecific ST-T wave changes. Chest x-ray did not reveal any evidence for acute pulmonary disease. Abdominal x-ray revealed a nonacute abdomen. To some of the abdomen revealed hepatomegaly with at least moderate hepatic steatosis, splenomegaly. According to the patient, he regularly works out at the gym, on Friday of this week he states he did is regular workup on a treadmill and bicycle without any symptoms of chest discomfort, he does this regularly throughout the week. He's been up ambulating in the hallways here without any difficulty, no chest pain, no difficulty in breathing. He is complaining of some mild abdominal discomfort on examination. Past Medical History Past Medical History: Coronary Artery Disease (CAD), Chest Pain / Angina, Heart Failure, Diabetes Mellitus, GERD/Reflux, Hyperlipidemia, Hypertension, Myocardial Infarction ([place]), Pneumonia, Vascular Disorder Additional Past Medical History / Comment(s): Ischemic cardiomyopathy, nonsustained ventriclar arrhythmia, systolic heart failure, [place] x 2 in 2001 and 1994, 06/2018 acute cellulitis 2ndary to local trauma L kneecap, kidney stones which pt believes he passed, gout bilateral feet toes. Last Myocardial Infarction Date:: 2001 History of Any Multi-Drug Resistant Organisms: None Reported Past Surgical History: Heart Catheterization, Heart Catheterization With Stent, Joint Replacement, Orthopedic Surgery Additional Past Surgical History / Comment(s): PCIs with a total of 6 stents per patient, cardiac ablation-AVRNT, EPS, R knee arthroscopy, bilateral total knee replacements with L side done twice, bilateral shoulder rotator cuff surgeries with L side done 3 times, L ankle surgery, bilateral carpal tunnel releases. Past Anesthesia/Blood Transfusion Reactions: No Reported Reaction Date of Last Stent Placement:: 02/10/17 Additional Psychological History / Comment(s): Is , of cardiovascular disease in April still actively dealing with the grief. No experience. No travel. retired. Pet dog in the home. Stopped smoking several years ago Smoking Status: Former smoker - Past Family History Father History Unknown: Yes Additional Family Medical History / Comment(s): Pt does not know his father's history. His parents were . Mother History Unknown: Yes Family Medical History: Cancer Additional Family Medical History / Comment(s): Pt states mother had some form of cancer which she from. Medications and Allergies Home Medications Medication Instructions Recorded Confirmed Type Allopurinol [Zyloprim] 300 mg PO DAILY 06/07/14 10/20/18 History Insulin NPH Hum/Reg Insulin Hm 10 unit SQ AC-SUPPER 06/07/14 10/20/18 History [NovoLIN 70-30 100 UNIT/ML VIAL] Isosorbide Mononitrate [Imdur] 30 mg PO DAILY 06/07/14 10/20/18 History metFORMIN HCL 1,000 mg PO BID 06/07/14 10/20/18 History Ferrous Sulfate [Iron (65 MG 325 mg PO DAILY 03/07/16 10/20/18 History Elemental)] Spironolactone [Aldactone] 25 mg PO DAILY #30 tab 03/09/16 10/20/18 Rx Atorvastatin [Lipitor] 20 mg PO HS 07/21/17 10/20/18 History Carvedilol [Coreg] 12.5 mg PO BID 07/21/17 10/20/18 History Insulin NPH Hum/Reg Insulin Hm 20 unit SQ AC-BRKFST #0 07/29/17 10/20/18 Rx [NovoLIN 70-30 100 UNIT/ML VIAL] Acetaminophen [Tylenol Extra 500 mg PO Q4H PRN 10/20/18 10/20/18 History Strength] Aspirin 325 mg PO DAILY 10/20/18 10/20/18 History Allergies Allergy/AdvReac Type Severity Reaction Status Date / Time No Known Allergies Allergy Verified 10/20/18 08:35 Physical Exam Vitals: Vital Signs Temp Pulse Resp BP Pulse Ox 10/21/18 08:00 99.0 F 76 133/62 99 10/21/18 04:00 98.0 F 85 17 122/60 95 10/21/18 00:00 97.5 F L 80 17 119/54 97 10/20/18 20:00 98.2 F 80 18 125/66 96 10/20/18 17:59 102.0 F H 10/20/18 16:19 84 17 10/20/18 16:07 98.8 F 84 17 148/67 97 Intake and Output 10/20/18 10/21/18 10/21/18 22:59 06:59 14:59 Intake Total 480 1600 Balance 480 1600 Intake: Intake, IV Titration 1200 Amount Piperacillin-Tazobactam 3 100 .375 gm In Sodium Chloride 0.9% 100 ml @ 25 mls/hr IVPB Q8HR [facility] Rx# :[id number] Sodium Chloride 0.9% 1, 1100 000 ml @ 100 mls/hr IV . Q10H [facility] Rx#:[id number] Oral 480 400 Other: Voiding Method Toilet Toilet # Voids 1 2 Weight 114.6 kg PHYSICAL EXAMINATION: GENERAL: 73-year-old gentleman in no acute distress at my examination HEENT: Head is atraumatic, normocephalic. Pupils equal, round. Sclera anicteric. Conjunctiva are clear. Mucous membranes of the mouth are moist. Neck is supple. There is no elevated jugular venous pressure.] bruit is heard. HEART EXAMINATION: Heart S1, S2 normal. No murmur or gallop heard. CHEST EXAMINATION: Lungs are clear to auscultation and precussion. No chest wall tenderness is noted on palpation or with deep breathing. ABDOMEN: Soft, positive tenderness in the left upper quadrant on palpation. Bowel sounds are heard. No organomegaly noted. EXTREMITIES: 2+ peripheral pulses with no evidence of peripheral edema and no calf tenderness noted. NEUROLOGIC patient is awake, alert and oriented 3. . Results 10/21/18 05:46 10/21/18 05:46 Cardiac Enzymes 10/20/18 10/20/18 10/20/18 Range/Units 12:37 14:07 18:35 AST 33 (17-59) U/L CK-MB (CK-2) 0.9 0.8 (0.0-2.4) ng/mL Troponin I <0.012 <0.012 (0.000-0.034) ng/mL Lipids 10/21/18 Range/Units 05:46 Triglycerides 176 H (<150) mg/dL Cholesterol 95 (<200) mg/dL HDL Cholesterol 30 L (40-60) mg/dL CBC 10/21/18 Range/Units 05:46 WBC 3.9 (3.8-10.6) k/uL RBC 3.61 L (4.30-5.90) m/uL Hgb 12.0 L (13.0-17.5) gm/dL Hct 34.9 L (39.0-53.0) % Plt Count 55 L (150-450) k/uL Comprehensive Metabolic Panel 10/20/18 10/21/18 Range/Units 14:07 05:46 Sodium 141 (137-145) mmol/L Potassium 3.8 (3.5-5.1) mmol/L Chloride 109 H (98-107) mmol/L Carbon Dioxide 24 (22-30) mmol/L BUN 12 (9-20) mg/dL Creatinine 0.91 (0.66-1.25) mg/dL Glucose 129 H (74-99) mg/dL Calcium 8.6 (8.4-10.2) mg/dL Unconjugated Bilirubin 1.4 H (0.0-1.1) mg/dL AST 33 (17-59) U/L ALT 34 (21-72) U/L Alkaline Phosphatase 58 (38-126) U/L Total Protein 6.8 (6.3-8.2) g/dL Albumin 3.9 (3.5-5.0) g/dL Current Medications Generic Name Dose Route Start Last Admin Trade Name Freq PRN Reason Stop Dose Admin Acetaminophen 650 mg 10/20/18 18:39 10/21/18 02:32 Tylenol Tab PO 650 mg Q6HR PRN Administration Fever and/ or Mild Pain Aspirin 325 mg 10/21/18 09:00 10/21/18 09:55 Aspirin PO 325 mg DAILY [facility] Administration Famotidine 20 mg 10/20/18 21:00 10/21/18 09:55 Pepcid IV 20 mg Q12HR [facility] Administration Heparin Sodium (Porcine) 5,000 unit 10/20/18 13:45 10/21/18 09:55 Heparin SQ 5,000 unit Q12HR [facility] Administration Sodium Chloride 1,000 mls @ 100 mls/hr 10/20/18 09:15 10/21/18 05:56 Saline 0.9% IV 100 mls/hr .Q10H [facility] Administration Piperacillin Sod/Tazobactam 100 mls @ 25 mls/hr 10/20/18 17:00 10/21/18 09:54 Sod 3.375 gm/ Sodium Chloride IVPB 25 mls/hr Q8HR [facility] Administration Insulin Aspart 0 unit 10/21/18 12:30 Novolog SQ ACHS [facility] Protocol Nitroglycerin 1 inch 10/20/18 12:00 10/21/18 05:56 Nitro-Bid Oint TOPICAL Not Given Q6HR [facility] Nitroglycerin 0.4 mg 10/20/18 09:02 Nitrostat SUBLINGUAL Q5M PRN Chest Pain Intake and Output 10/20/18 10/21/18 10/21/18 22:59 06:59 14:59 Intake Total 480 1600 Balance 480 1600 Intake: Intake, IV Titration 1200 Amount Piperacillin-Tazobactam 3 100 .375 gm In Sodium Chloride 0.9% 100 ml @ 25 mls/hr IVPB Q8HR [facility] Rx# :[id number] Sodium Chloride 0.9% 1, 1100 000 ml @ 100 mls/hr IV . Q10H [facility] Rx#:[id number] Oral 480 400 Other: Voiding Method Toilet Toilet # Voids 1 2 Weight 114.6 kg 10/21/18 05:46 10/21/18 05:46 EKG Interpretations (text) EKG shows a normal sinus rhythm with right bundle branch block pattern. Assessment and Plan Plan: Assessment and plan #1 chest pain with some atypical features for acute coronary syndrome. Troponins are negative 3. EKG shows normal sinus rhythm with right bundle branch block pattern. #2 fever of 103 on admission. Blood cultures have been ordered and are positive for beta-hemolytic strep group G. #3 COPD #4 known history of coronary artery disease with prior stent placements #5 diabetes #6 Hypertension #7 hyperlipidemia #8 low platelet count, patient has a history of this. Plan Patient's pain is very atypical for acute coronary syndrome, we will however repeat his echocardiogram with Doppler study. Decrease his aspirin to 81 mg daily. Discontinue Nitropaste. Continue Coreg, Lipitor, decrease IV fluids, further recommendations to follow. DNP note has been reviewed, I agree with a documented findings and plan of care. Patient was seen and examined.
[2018-10-21] MEDS: INSULIN ASPART 100 UNIT/ML 1 ML 10 ML VIAL SQ SCH ×3 (12:39→20:47)
[2018-10-21 13:03] LABS: Albumin 3.2 g/dL (3.5-5.0); Bilirubin, Delta 0.6 mg/dL (0.0-0.2); Bilirubin,Unconjugated 1.1 mg/dL (0.0-1.1); Total Bilirubin 1.7 mg/dL (0.2-1.3); Total Protein 5.9 g/dL (6.3-8.2)
[2018-10-21 13:14] LABS: Hemoglobin A1C 5.7 % (4.0-6.0)
--- NOTE | 2018-10-21 13:31 | US ---
EXAMINATION TYPE: US venous doppler duplex LE LT DATE OF EXAM: 10/21/2018 1:21 PM COMPARISON: US 2012 CLINICAL HISTORY: left leg pain and induration. Left leg pain x 1 day SIDE PERFORMED: Left TECHNIQUE: The lower extremity deep venous system is examined utilizing real time linear array sonog ilana with graded compression, doppler sonography and color-flow sonography. VESSELS IMAGED: External Iliac Vein (EIV) Common Femoral Vein Deep Femoral Vein Greater Saphenous Vein * Femoral Vein Popliteal Vein Small Saphenous Vein * Proximal Calf Veins (* superficial vessels) Left Leg: Appears negative for DVT IMPRESSION: No evidence for DVT.
--- NOTE | 2018-10-21 14:08 | P.PN ---
Subjective This is a pleasant 73 years old male with past medical history of heart failure , coronary artery disease, ischemic cardiomyopathy diabetes mellitus, GERD, hyperlipidemia, hypertension, status post cardiac cath with stent placement who presents because of chest pain patient states that 1:00 this morning he woke up feeling cold associated with central chest pain that lasted for 10-15 minutes. Was severe, felt like pressure or squeezing similar to his old heart attack. Does not smoke of shortness of breath. He has some nausea but no vomiting. Has some sweating with chills. In the emergency room he had a temperature of 1 or 3.1 (please refer to emergency room physician not) , however no other fever was charted. No leukocytosis. Creatinine was 0.8. His lactic lactic acid was 2.8. Total bilirubin is 1.4. Patient already got ceftriaxone in the emergency room. He was started on normal saline at 100 L/h. 10/13/1818 Patient abdominal pain is improved over 2 days complaining of from left leg pain. He denies abdominal pain but on exam he has some epigastric tenderness. cardiology follow-up is appreciated. his blood culture came back positive with beta hemolytic strep group G. He is already on Zosyn as per ID team recommendation. Patient continue on IV fluids for now. Abdominal ultrasound was noted, no source would explain patient presentation. Patient's BMP was improving. His looping still elevated, rest of liver enzymes were within normal limits. WBC is 3.9 Objective - Vital Signs Vital signs: Vital Signs Temp 98.1 F 10/21/18 12:00 Pulse 72 10/21/18 12:00 Resp 17 10/21/18 04:00 BP 148/70 10/21/18 12:00 Pulse Ox 97 10/21/18 12:00 Intake & Output 10/20/18 10/21/18 10/21/18 18:59 06:59 18:59 Intake Total 600 1600 240 Balance 600 1600 240 Weight 106.594 kg 114.6 kg Intake: Intake, IV Titration 1200 Amount Piperacillin-Tazobactam 3 100 .375 gm In Sodium Chloride 0.9% 100 ml @ 25 mls/hr IVPB Q8HR [facility] Rx# :[id number] Sodium Chloride 0.9% 1, 1100 000 ml @ 100 mls/hr IV . Q10H [facility] Rx#:[id number] Oral 600 400 240 Other: Voiding Method Toilet # Voids 1 2 1 - Exam GENERAL: The patient is alert and oriented x3, not in any acute distress. Well developed, well nourished. Obese HEENT: Pupils are round and equally reacting to light. EOMI. No scleral icterus. No conjunctival pallor. Normocephalic, atraumatic. No pharyngeal erythema. No thyromegaly. CARDIOVASCULAR: S1 and S2 present. No murmurs, rubs, or gallops. PULMONARY: Chest is clear to auscultation, no wheezing or crackles. ABDOMEN: Soft, nontender, nondistended, normoactive bowel sounds. No palpable organomegaly. MUSCULOSKELETAL: No joint swelling or deformity. EXTREMITIES: No cyanosis, clubbing, or pedal edema. NEUROLOGICAL: Gross neurological examination did not reveal any focal deficits. SKIN: No rashes. - Labs CBC & Chem 7: 10/21/18 05:46 10/21/18 05:46 Labs: Abnormal Lab Results - Last 24 Hours (Table) 10/20/18 10/20/18 10/20/18 Range/Units 14:07 16:10 18:35 RBC (4.30-5.90) m/uL Hgb (13.0-17.5) gm/dL Hct (39.0-53.0) % Plt Count (150-450) k/uL Lymphocytes # (1.0-4.8) k/uL Chloride (98-107) mmol/L Glucose (74-99) mg/dL POC Glucose (mg/dL) 112 H (75-99) mg/dL Plasma Lactic Acid Evgeny (0.7-2.0) mmol/L Total Bilirubin 1.9 H (0.2-1.3) mg/dL Unconjugated Bilirubin 1.4 H (0.0-1.1) mg/dL Delta Bilirubin 0.5 H (0.0-0.2) mg/dL Total Creatine Kinase 36 L (55-170) U/L Total Protein (6.3-8.2) g/dL Albumin (3.5-5.0) g/dL Triglycerides (<150) mg/dL HDL Cholesterol (40-60) mg/dL 10/20/18 10/20/18 10/21/18 Range/Units 19:52 20:38 05:46 RBC (4.30-5.90) m/uL Hgb (13.0-17.5) gm/dL Hct (39.0-53.0) % Plt Count (150-450) k/uL Lymphocytes # (1.0-4.8) k/uL Chloride 109 H (98-107) mmol/L Glucose 129 H (74-99) mg/dL POC Glucose (mg/dL) 136 H (75-99) mg/dL Plasma Lactic Acid Evgeny 2.3 H* (0.7-2.0) mmol/L Total Bilirubin (0.2-1.3) mg/dL Unconjugated Bilirubin (0.0-1.1) mg/dL Delta Bilirubin (0.0-0.2) mg/dL Total Creatine Kinase (55-170) U/L Total Protein (6.3-8.2) g/dL Albumin (3.5-5.0) g/dL Triglycerides 176 H (<150) mg/dL HDL Cholesterol 30 L (40-60) mg/dL 10/21/18 10/21/18 10/21/18 Range/Units 05:46 05:46 06:36 RBC 3.61 L (4.30-5.90) m/uL Hgb 12.0 L (13.0-17.5) gm/dL Hct 34.9 L (39.0-53.0) % Plt Count 55 L (150-450) k/uL Lymphocytes # 0.6 L (1.0-4.8) k/uL Chloride (98-107) mmol/L Glucose (74-99) mg/dL POC Glucose (mg/dL) 127 H (75-99) mg/dL Plasma Lactic Acid Evgeny (0.7-2.0) mmol/L Total Bilirubin 1.7 H (0.2-1.3) mg/dL Unconjugated Bilirubin (0.0-1.1) mg/dL Delta Bilirubin 0.6 H (0.0-0.2) mg/dL Total Creatine Kinase (55-170) U/L Total Protein 5.9 L (6.3-8.2) g/dL Albumin 3.2 L (3.5-5.0) g/dL Triglycerides (<150) mg/dL HDL Cholesterol (40-60) mg/dL 10/21/18 Range/Units 11:46 RBC (4.30-5.90) m/uL Hgb (13.0-17.5) gm/dL Hct (39.0-53.0) % Plt Count (150-450) k/uL Lymphocytes # (1.0-4.8) k/uL Chloride (98-107) mmol/L Glucose (74-99) mg/dL POC Glucose (mg/dL) 132 H (75-99) mg/dL Plasma Lactic Acid Evgeny (0.7-2.0) mmol/L Total Bilirubin (0.2-1.3) mg/dL Unconjugated Bilirubin (0.0-1.1) mg/dL Delta Bilirubin (0.0-0.2) mg/dL Total Creatine Kinase (55-170) U/L Total Protein (6.3-8.2) g/dL Albumin (3.5-5.0) g/dL Triglycerides (<150) mg/dL HDL Cholesterol (40-60) mg/dL Microbiology - Last 24 Hours (Table) 10/20/18 08:20 Urine Culture - Final Urine,Catheterized 10/20/18 07:15 Blood Culture Gram Stain - Preliminary Blood Blood Culture - Preliminary Beta Hemolytic Strep Group G 10/20/18 07:15 Blood Culture - Final Blood Assessment and Plan Assessment: Chest pain, rule out cardiac causes Positive blood culture Fever of unknown source. High lactic acid History of ischemic cardiomyopathy History of coronary artery disease, status post stent placement Diabetes mellitus GERD Hyperlipidemia Essential hypertension Plan: This is a pleasant 73 years old male who presents because of chest pain, and fever. Admitted to the general medical floor, continue with aspirin. Call cardiology consult. Infectious team consult. Continue with IV fluids. Antibiotics are per ID team. Labs and medication were reviewed.. Continue same treatment. Continue with symptomatic treatment. Resume home medication. Monitor lytes and vitals. DVT and GI prophylaxis. Further recommendations of the clinical course of the patient DVT prophylaxis: Subcutaneous heparin GI Prophylaxis: Pepcid PT/OT: Pending Prognosis is guarded
[2018-10-21 17:00] LABS: Glucose,Whole Blood 121 mg/dL (75-99)
[2018-10-21] MEDS: INSULN ASP PRT/INSULIN ASPART 100 UNIT/ML 10 ML VIAL SQ SCH (17:43)
[2018-10-21] MEDS: CARVEDILOL 12.5 MG TAB PO SCH (17:44)
[2018-10-21 20:34] LABS: Glucose,Whole Blood 123 mg/dL (75-99)
[2018-10-21] MEDS: ATORVASTATIN 20 MG TAB PO SCH (20:35)
[2018-10-21] MEDS: FAMOTIDINE 20 MG TAB PO SCH (20:36)
[2018-10-21] MEDS ORDERED: metFORMIN 500 MG TAB PO SCH (21:00)
[2018-10-21] MEDS ORDERED: ATORVASTATIN 20 MG TAB PO SCH (21:00)
--- NOTE | 2018-10-21 22:24 | P.PN ---
Subjective Progress Note Date: 10/21/18 Pleasant 73-year-old male known to the service from prior care for lower extremity ulceration years ago. Now presents after awakening at 1:00 AM feeling very poorly with discomforts in his chest and chest pressure. He has some shortness of breath also. He was feeling poorly and is a hours went by he noticed that he became very cold and developed chills and what appears to be a brief rigor. By the morning he was feeling so poorly he decided to come to the emergency center without evidence of temperature 103.1 and appear to be acutely ill. The patient's been admitted for sepsis and with this the infectious diseases consultation was requested. This chest x-ray was negative and cardiac workup was negative also at the time of admission. However the patient relates that she sitting upright that he is having some abdominal discomfort. He is not having nausea or emesis relates that he's had some chronic diarrhea over quite some time. It has not changed as of late. He's had no hematemesis melena or hematochezia. He does feel very poorly still at this point in time and believes his abdomen feels worse now than at admission. The records are reviewed he does have a known history of prior diverticulitis as well as nephrolithiasis with infection. 10/21/2018 patient was feeling quite poorly earlier today feeling little better this evening and is up walking in the hallway. He is to begin pain to his left leg this become quite erythematous. The significant abdominal pain has improved. She is able to eat throughout the day without nausea or emesis. He' s had no hematemesis melena or diarrhea. Objective - Vital Signs Vital signs: Vital Signs Temp 97.9 F 10/21/18 20:15 Pulse 73 10/21/18 20:15 Resp 16 10/21/18 20:15 BP 148/67 10/21/18 20:15 Pulse Ox 99 10/21/18 20:15 Intake & Output 10/21/18 10/21/18 10/22/18 06:59 18:59 06:59 Intake Total 1600 480 800 Output Total 200 Balance 1600 480 600 Weight 114.6 kg Intake: IV 800 Piperacillin-Tazobactam 3 800 .375 gm In Sodium Chloride 0.9% 100 ml @ 25 mls/hr IVPB Q8HR [facility] Rx# :[id number] Intake, IV Titration 1200 Amount Piperacillin-Tazobactam 3 100 .375 gm In Sodium Chloride 0.9% 100 ml @ 25 mls/hr IVPB Q8HR [facility] Rx# :[id number] Sodium Chloride 0.9% 1, 1100 000 ml @ 100 mls/hr IV . Q10H [facility] Rx#:[id number] Oral 400 480 Output: Urine 200 Other: Voiding Method Toilet # Voids 2 1 - Exam Pleasant 73-year-old male with obesity who appears to be acutely ill HEENT: Anicteric conjunctiva are pink and moist nasal mucosa grossly intact without significant lesions, there is no thrush. Neck: The neck is supple without significant lymphadenopathy or thyromegaly. Lungs: Good bilateral air entry without significant crackles or wheezing. There is no significant bronchial sounds. There is no egophony or dullness. Heart: Regular rate and rhythm with an audible S1-S2, no S3 no S4. There is no significant murmur click or rub, PMI was nondisplaced. Abdomen: Positive bowel sounds soft and nontender without palpable masses or organomegaly. There was no guarding or rebound. There is some abdominal tenderness in the right upper quadrant Extremities: The upper extremities have excellent pulses they are symmetric, no significant petechiae or telangiectasia. No splinter hemorrhages were noted. The right lower extremity is without acute abnormality. The left lower extremities now shows evidence of dense erythema over the pretibial area that is quite tender and there is some tenderness that is tracking posteriorly on the leg also. Neuro: Awake alert oriented to person place and time. There are no acute new gross focal sensory motor deficits. - Labs CBC & Chem 7: 10/21/18 05:46 10/21/18 05:46 Labs: Abnormal Lab Results - Last 24 Hours (Table) 10/21/18 10/21/18 10/21/18 Range/Units 05:46 05:46 05:46 RBC 3.61 L (4.30-5.90) m/uL Hgb 12.0 L (13.0-17.5) gm/dL Hct 34.9 L (39.0-53.0) % Plt Count 55 L (150-450) k/uL Lymphocytes # 0.6 L (1.0-4.8) k/uL Chloride 109 H (98-107) mmol/L Glucose 129 H (74-99) mg/dL POC Glucose (mg/dL) (75-99) mg/dL Total Bilirubin 1.7 H (0.2-1.3) mg/dL Delta Bilirubin 0.6 H (0.0-0.2) mg/dL Total Protein 5.9 L (6.3-8.2) g/dL Albumin 3.2 L (3.5-5.0) g/dL Triglycerides 176 H (<150) mg/dL HDL Cholesterol 30 L (40-60) mg/dL 10/21/18 10/21/18 10/21/18 Range/Units 06:36 11:46 16:46 RBC (4.30-5.90) m/uL Hgb (13.0-17.5) gm/dL Hct (39.0-53.0) % Plt Count (150-450) k/uL Lymphocytes # (1.0-4.8) k/uL Chloride (98-107) mmol/L Glucose (74-99) mg/dL POC Glucose (mg/dL) 127 H 132 H 121 H (75-99) mg/dL Total Bilirubin (0.2-1.3) mg/dL Delta Bilirubin (0.0-0.2) mg/dL Total Protein (6.3-8.2) g/dL Albumin (3.5-5.0) g/dL Triglycerides (<150) mg/dL HDL Cholesterol (40-60) mg/dL 10/21/18 Range/Units 20:31 RBC (4.30-5.90) m/uL Hgb (13.0-17.5) gm/dL Hct (39.0-53.0) % Plt Count (150-450) k/uL Lymphocytes # (1.0-4.8) k/uL Chloride (98-107) mmol/L Glucose (74-99) mg/dL POC Glucose (mg/dL) 123 H (75-99) mg/dL Total Bilirubin (0.2-1.3) mg/dL Delta Bilirubin (0.0-0.2) mg/dL Total Protein (6.3-8.2) g/dL Albumin (3.5-5.0) g/dL Triglycerides (<150) mg/dL HDL Cholesterol (40-60) mg/dL Microbiology - Last 24 Hours (Table) 10/20/18 08:20 Urine Culture - Final Urine,Catheterized 10/20/18 07:15 Blood Culture Gram Stain - Preliminary Blood Blood Culture - Preliminary Beta Hemolytic Strep Group G 10/20/18 07:15 Blood Culture - Final Blood Laboratory Results WBC 3.9 k/uL (3.8-10.6) 10/21/18 05:46 RBC 3.61 m/uL (4.30-5.90) L 10/21/18 05:46 Hgb 12.0 gm/dL (13.0-17.5) L 10/21/18 05:46 Hct 34.9 % (39.0-53.0) L 10/21/18 05:46 MCV 96.9 fL (80.0-100.0) 10/21/18 05:46 MCH 33.3 pg (25.0-35.0) 10/21/18 05:46 MCHC 34.4 g/dL (31.0-37.0) 10/21/18 05:46 RDW 14.5 % (11.5-15.5) 10/21/18 05:46 Plt Count 55 k/uL (150-450) L 10/21/18 05:46 Neutrophils % 77 % 10/21/18 05:46 Lymphocytes % 14 % 10/21/18 05:46 Monocytes % 7 % 10/21/18 05:46 Eosinophils % 1 % 10/21/18 05:46 Basophils % 0 % 10/21/18 05:46 Neutrophils # 3.0 k/uL (1.3-7.7) 10/21/18 05:46 Lymphocytes # 0.6 k/uL (1.0-4.8) L 10/21/18 05:46 Monocytes # 0.3 k/uL (0-1.0) 10/21/18 05:46 Eosinophils # 0.0 k/uL (0-0.7) 10/21/18 05:46 Basophils # 0.0 k/uL (0-0.2) 10/21/18 05:46 PT 10.9 sec (9.0-12.0) 10/20/18 07:15 INR 1.1 (<1.2) 10/20/18 07:15 APTT 22.8 sec (22.0-30.0) 10/20/18 07:15 Sodium 141 mmol/L (137-145) 10/21/18 05:46 Potassium 3.8 mmol/L (3.5-5.1) 10/21/18 05:46 Chloride 109 mmol/L (98-107) H 10/21/18 05:46 Carbon Dioxide 24 mmol/L (22-30) 10/21/18 05:46 Anion Gap 8 mmol/L 10/21/18 05:46 BUN 12 mg/dL (9-20) 10/21/18 05:46 Creatinine 0.91 mg/dL (0.66-1.25) 10/21/18 05:46 Est GFR (CKD-EPI)AfAm >90 (>60 ml/min/1.73 sqM) 10/21/18 05:46 Est GFR (CKD-EPI)NonAf 85 (>60 ml/min/1.73 sqM) 10/21/18 05:46 Glucose 129 mg/dL (74-99) H 10/21/18 05:46 POC Glucose (mg/dL) 123 mg/dL (75-99) H 10/21/18 20:31 POC Glu [employer] Robinson Hallman 10/21/18 20:[address] Glu mg/dL 117 10/21/18 05:46 Hemoglobin A1c 5.7 % (4.0-6.0) 10/21/18 05:46 Lactic Ac Sepsis Rflx Y 10/20/18 21:16 Plasma Lactic Acid Evgeny 1.9 mmol/L (0.7-2.0) 10/21/18 00:36 Calcium 8.6 mg/dL (8.4-10.2) 10/21/18 05:46 Total Bilirubin 1.7 mg/dL (0.2-1.3) H 10/21/18 05:46 Conjugated Bilirubin 0.0 mg/dL (0.0-0.3) 10/21/18 05:46 Unconjugated Bilirubin 1.1 mg/dL (0.0-1.1) 10/21/18 05:46 Delta Bilirubin 0.6 mg/dL (0.0-0.2) H 10/21/18 05:46 AST 33 U/L (17-59) 10/21/18 05:46 ALT 35 U/L (21-72) 10/21/18 05:46 Alkaline Phosphatase 58 U/L (38-126) 10/21/18 05:46 Total Creatine Kinase 36 U/L (55-170) L 10/20/18 18:35 CK-MB (CK-2) 0.8 ng/mL (0.0-2.4) 10/20/18 18:35 CK-MB (CK-2) Rel Index 2.2 10/20/18 18:35 Troponin I <0.012 ng/mL (0.000-0.034) 10/20/18 18:35 Total Protein 5.9 g/dL (6.3-8.2) L 10/21/18 05:46 Albumin 3.2 g/dL (3.5-5.0) L 10/21/18 05:46 Triglycerides 176 mg/dL (<150) H 10/21/18 05:46 Cholesterol 95 mg/dL (<200) 10/21/18 05:46 LDL Cholesterol, Calc 30 mg/dL (0-99) 10/21/18 05:46 HDL Cholesterol 30 mg/dL (40-60) L 10/21/18 05:46 Urine Color Yellow 10/20/18 08:20 Urine Appearance Clear (Clear) 10/20/18 08:20 Urine pH 7.0 (5.0-8.0) 10/20/18 08:20 Ur Specific [place] 1.017 (1.001-1.035) 10/20/18 08:20 Urine Protein Trace (Negative) H 10/20/18 08:20 Urine Glucose (UA) Negative (Negative) 10/20/18 08:20 Urine Ketones Negative (Negative) 10/20/18 08:20 Urine Blood Trace (Negative) H 10/20/18 08:20 Urine Nitrite Negative (Negative) 10/20/18 08:20 Urine Bilirubin Negative (Negative) 10/20/18 08:20 Urine Urobilinogen <2.0 mg/dL (<2.0) 10/20/18 08:20 Ur Leukocyte Esterase Negative (Negative) 10/20/18 08:20 Urine RBC 6 /hpf (0-5) H 10/20/18 08:20 Urine WBC 1 /hpf (0-5) 10/20/18 08:20 Urine Mucus Rare /hpf (None) H 10/20/18 08:20 Hepatitis A IgM Ab Non-Reactive (Non-Reactive) 10/20/18 18:35 Hep Bs Antigen Non-Reactive (Non-Reactive) 10/20/18 18:35 Hep B Core IgM Ab Non-Reactive (Non-Reactive) 10/20/18 18:35 Hep C IgG Ab Non-Reactive (Non-Reactive) 10/20/18 18:35 Influenza Type A RNA Not Detected (Not Detectd) 10/20/18 07:35 Influenza Type B (PCR) Not Detected (Not Detectd) 10/20/18 07:35 Microbiology 10/20/18 08:20 Urine,Catheterized Urine Culture - Final 10/20/18 07:15 Blood Blood Culture Gram Stain - Preliminary 10/20/18 07:15 Blood Blood Culture - Preliminary Beta Hemolytic Strep Group G 10/20/18 07:15 Blood Blood Culture - Final - Imaging and Cardiology Chest x-ray: image reviewed (No infiltrate) Abdominal ultrasound without acute abnormality abdominal x-ray without free air or obstruction Assessment and Plan (1) Sepsis Current Visit: Yes Status: Acute Code(s): A41.9 - SEPSIS, UNSPECIFIED ORGANISM SNOMED Code(s): 64420038 (2) Abdominal pain Narrative/Plan: 73-year-old male with a history of underlying cardiovascular disease presents to Hospital with concerns to pain in his chest as well as abdominal pain high- grade fever chills and rigor. At presentation 103 fever was noted patient did not take his temperature at home. However he did have the chills. The patient appears to be acutely ill and concerns to abdominal sepsis as the etiology of his current illness. With elevated total bilirubin and abdominal ultrasound was requested to evaluate his biliary tract and gallbladder as potential source. The patient does have a history also of diverticulitis and with his obesity abdominal exam is somewhat difficult. If ultrasound is none guiding then may require computed tomography scan of his abdomen. Antibiotic therapy is altered to piperacillin tazobactam for coverage of abdominal sepsis, he has no history of MRSA. Cultures will be monitored imaging studies will further direct therapy. If abdominal pain continues may benefit from a surgical consult. 10/21/2018 patient is feeling considerably better today. Abdominal pain is generally resolved. Is having discomfort in the left lower extremity and a dense area erythema has started. Consequently a bacteremic cellulitis appears to be the etiology of his sepsis at admission. Fortunately he is improving today. We'll continue current antibiotic therapy while cultures remain in process. Current Visit: Yes Status: Acute Code(s): R10.9 - UNSPECIFIED ABDOMINAL PAIN SNOMED Code(s): 22453219 (3) Fever Current Visit: Yes Status: Acute Code(s): R50.9 - FEVER, UNSPECIFIED SNOMED Code(s): 911448594
[2018-10-21] MEDS: ACETAMINOPHEN TAB 500 MG TAB PO PRN (23:03)
[2018-10-22] MEDS: INSULIN ASPART 100 UNIT/ML 1 ML 10 ML VIAL SQ SCH ×4 (06:04→21:37)
[2018-10-22 06:05] LABS: Glucose,Whole Blood 121 mg/dL (75-99)
[2018-10-22] MEDS: CARVEDILOL 12.5 MG TAB PO SCH ×2 (06:54→18:03)
[2018-10-22 07:02] LABS: Basophils % (A) 0 %; Eosinophils # (A) 0.2 k/uL (0-0.7); Eosinophils % (A) 3 %; HCT 37.2 % (39.0-53.0); HGB 12.5 gm/dL (13.0-17.5); Lymphocytes # (A) 0.8 k/uL (1.0-4.8); Lymphocytes % (A) 18 %; MCH 32.4 pg (25.0-35.0); MCHC 33.5 g/dL (31.0-37.0); MCV 96.7 fL (80.0-100.0); Mean Platelet Volume 7.2; Monocytes # (A) 0.2 k/uL (0-1.0); Monocytes % (A) 5 %; Neutrophils # (A) 3.4 k/uL (1.3-7.7); Neutrophils % (A) 72 %; RBC 3.85 m/uL (4.30-5.90); RDW 14.3 % (11.5-15.5); WBC 4.6 k/uL (3.8-10.6)
[2018-10-22 07:11] LABS: Platelet Count 61 k/uL (150-450)
[2018-10-22 07:13] LABS: Albumin 3.7 g/dL (3.5-5.0); Anion Gap 12 mmol/L; Bilirubin, Delta 0.6 mg/dL (0.0-0.2); Blood Urea Nitrogen 10 mg/dL (9-20); Calcium 8.6 mg/dL (8.4-10.2); Carbon Dioxide 21 mmol/L (22-30); Chloride 110 mmol/L (98-107); Glucose 122 mg/dL (74-99); Sodium 143 mmol/L (137-145); Total Bilirubin 1.6 mg/dL (0.2-1.3); Total Protein 6.7 g/dL (6.3-8.2)
[2018-10-22 07:23] LABS: ALT 32 U/L (21-72); AST 40 U/L (17-59); Alkaline Phosphatase 71 U/L (38-126)
--- NOTE | 2018-10-22 07:29 | ECHOF ---
Referral Reason:chest pain MEASUREMENTS -------- HEIGHT: 180.3 cm WEIGHT: 114.3 kg BP: RVIDd: 3.5 cm (< 3.3) IVSd: 1.2 cm (0.6 - 1.1) LVIDd: 6.2 cm (3.9 - 5.3) LVPWd: 1.3 cm (0.6 - 1.1) IVSs: 1.5 cm LVIDs: 4.2 cm LVPWs: 1.9 cm LAESV Index (A-L): 39.53 ml/m Ao Diam: 3.4 cm (2.0 - 3.7) AV Cusp: 2.1 cm (1.5 - 2.6) LA Diam: 4.8 cm (2.7 - 3.8) MV EXCURSION: 24.729 mm (> 18.000) MV EF SLOPE: 76 mm/s (70 - 150) EPSS: 1.0 cm MV E Venkat: 1.16 m/s MV DecT: 192 ms MV A Venkat: 1.08 m/s MV E/A Ratio: 1.07 RAP: 5.00 mmHg RVSP: 31.31 mmHg FINDINGS -------- Sinus rhythm. This was a technically difficult study with suboptimal views. The left ventricle is mildly dilated. There is mild concentric left ventricular hypertrophy. Ther e is mild global hypokinesis of LV . Overall left ventricular systolic function is mildly impaired with, an EF between 45 - 50 %. The right ventricle is mildly enlarged. The left atrium is moderately dilated. The right atrium is normal in size. Lumason used The aortic valve is trileaflet and appears structurally normal. The mitral valve leaflets are mildly thickened. Mild mitral regurgitation is present. Mild tricuspid regurgitation present. There is no evidence of pulmonary hypertension. The right v entricular systolic pressure, as measured by Doppler, is 31.31mmHg. The pulmonic valve was not well visualized. There is no pulmonic regurgitation present. The aortic root size is normal. There is a trivial pericardial effusion present. CONCLUSIONS -------- 1. Sinus rhythm. 2. This was a technically difficult study with suboptimal views. 3. The left ventricle is mildly dilated. 4. There is mild concentric left ventricular hypertrophy. 5. There is mild global hypokinesis of LV . 6. Overall left ventricular systolic function is mildly impaired with, an EF between 45 - 50 %. 7. The right ventricle is mildly enlarged. 8. The left atrium is moderately dilated. 9. Lumason used 10. The aortic valve is trileaflet and appears structurally normal. 11. The mitral valve leaflets are mildly thickened. 12. Mild mitral regurgitation is present. 13. Mild tricuspid regurgitation present. 14. There is no evidence of pulmonary hypertension. 15. There is no pulmonic regurgitation present. 16. The aortic root size is normal. 17. There is a trivial pericardial effusion present. CODER: Molly Swift RDCS
[2018-10-22] MEDS ORDERED: INSULN ASP PRT/INSULIN ASPART 100 UNIT/ML 10 ML VIAL SQ SCH (07:30)
[2018-10-22] MEDS: FERROUS SULFATE 325 MG TAB PO SCH (07:45)
[2018-10-22] MEDS: FAMOTIDINE 20 MG TAB PO SCH ×2 (07:45→20:34)
[2018-10-22] MEDS: ASPIRIN 81 MG PO SCH (07:45)
[2018-10-22] MEDS: HEPARIN SODIUM,PORCINE 5,000 UNIT/ML 1 ML VIAL SQ SCH ×2 (07:45→20:34)
[2018-10-22] MEDS: ALLOPURINOL 300 MG TAB PO SCH (07:45)
[2018-10-22] MEDS: ISOSORBIDE MONONITRATE ER 30 MG TAB.ER.24H PO SCH (07:45)
[2018-10-22] MEDS: PIPERACILLIN-TAZOBACTAM 3.375 GM in SODIUM CHLORIDE 0.9% 100 ML IVPB SCH (07:45)
[2018-10-22] MEDS: SPIRONOLACTONE 25 MG TAB PO SCH (07:45)
[2018-10-22] MEDS: SODIUM CHLORIDE 0.9% 1,000 ML IV SCH ×2 (07:51→16:23)
[2018-10-22] MEDS ORDERED: ALLOPURINOL 300 MG TAB PO SCH (09:00)
[2018-10-22 11:31] LABS: Glucose,Whole Blood 120 mg/dL (75-99)
--- NOTE | 2018-10-22 11:49 | P.PN ---
Subjective Progress Note Date: 10/22/18 This is a 73-year-old gentleman with known history of coronary artery disease, multivessel CAD, hypertension, diabetes, hyperlipidemia, diabetes, COPD. Most recent cardiac catheterization was performed in January 2017 at which time the patient received the mid RCA stent. Patient also has history of ischemic cardiomyopathy with prior documented ejection fraction of 40%. Voiding to the patient, he states that he woke up around 1:00 in the morning and was feeling extremely cold and chilled, he states that he was also feeling really hot at times, wasn't sure at home if he was experiencing fever. He does state that he also had a pressure sensation in his chest which reminded him of his prior heart attack. For both of these reasons he was brought to the emergency room for further evaluation. His temperature on arrival here was 103.1, heart rate in the 80s, blood pressure 140/60, 98% on room air. He had a subsequent temperature of 102, his temp this morning is 99. Blood pressure 133/ 60 with a heart rate in the 70s, 99% on room air. White blood cell count 8 on admission 3.9 this morning, hemoglobin 12, platelet count 55. Sodium 144, potassium 3.8, BUN 12, creatinine 0.9. Plasma lactic acid 2.3 on admission. Troponins have been negative 3. EKG shows a normal sinus rhythm with a right bundle branch block pattern and nonspecific ST-T wave changes. Chest x-ray did not reveal any evidence for acute pulmonary disease. Abdominal x-ray revealed a nonacute abdomen. To some of the abdomen revealed hepatomegaly with at least moderate hepatic steatosis, splenomegaly. According to the patient, he regularly works out at the gym, on Friday of this week he states he did is regular workup on a treadmill and bicycle without any symptoms of chest discomfort, he does this regularly throughout the week. He's been up ambulating in the hallways here without any difficulty, no chest pain, no difficulty in breathing. He is complaining of some mild abdominal discomfort on examination. 10/22/2018 Patient was seen and examined this morning, denies any chest pain, breathing is stable. He was having significant pain in his left lower leg where there is evidence of cellulitis earlier this morning. He does state the pain is improving somewhat. She was initiated on antibiotics for this and has been seen by Dr. Ray. Blood pressure 120/50 with a heart rate in the 60s, 96% on room air. White blood cell count normal, hemoglobin 12.5, platelet count 61. Sodium 143, potassium 4.0, BUN 10, creatinine 0.5. Troponins negative. Objective - Vital Signs Vital signs: Vital Signs Temp 97.7 F 10/22/18 04:00 Pulse 64 10/22/18 08:00 Resp 18 10/22/18 08:00 BP 120/58 10/22/18 08:00 Pulse Ox 96 10/22/18 08:00 Intake & Output 10/21/18 10/22/18 10/22/18 18:59 06:59 18:59 Intake Total 480 1300 240 Output Total 200 Balance 480 1100 240 Weight 115.4 kg Intake: IV 1300 Piperacillin-Tazobactam 3 900 .375 gm In Sodium Chloride 0.9% 100 ml @ 25 mls/hr IVPB Q8HR [facility] Rx# :[id number] Sodium Chloride 0.9% 1, 400 000 ml @ 50 mls/hr IV . Q20H [facility] Rx#:[id number] Oral 480 240 Output: Urine 200 Other: # Voids 1 1 # Bowel Movements 0 - Exam PHYSICAL EXAMINATION: GENERAL: -year-old gentleman in no acute distress at the time of my examination HEENT: Head is atraumatic, normocephalic. Pupils equal, round. Sclera anicteric. Conjunctiva are clear. Mucous membranes of the mouth are moist. Neck is supple. There is no elevated jugular venous pressure. No carotid bruit is heard. HEART EXAMINATION: Heart S1, S2 normal. No murmur or gallop heard. CHEST EXAMINATION: Lungs are clear to auscultation and precussion. No chest wall tenderness is noted on palpation or with deep breathing. ABDOMEN: Soft, obese, nontender. Bowel sounds are heard. No organomegaly noted. EXTREMITIES: 2+ peripheral pulses with trace evidence of peripheral edema, area of redness noted in the left calf area suggestive of cellulitis. NEUROLOGIC patient is awake, alert and oriented 3 . . - Labs CBC & Chem 7: 10/22/18 06:24 10/22/18 06:24 Labs: Abnormal Lab Results - Last 24 Hours (Table) 10/21/18 10/21/18 10/21/18 Range/Units 05:46 05:46 11:46 RBC (4.30-5.90) m/uL Hgb (13.0-17.5) gm/dL Hct (39.0-53.0) % Plt Count (150-450) k/uL Lymphocytes # (1.0-4.8) k/uL Chloride 109 H (98-107) mmol/L Carbon Dioxide (22-30) mmol/L Glucose 129 H (74-99) mg/dL POC Glucose (mg/dL) 132 H (75-99) mg/dL Total Bilirubin 1.7 H (0.2-1.3) mg/dL Delta Bilirubin 0.6 H (0.0-0.2) mg/dL Total Protein 5.9 L (6.3-8.2) g/dL Albumin 3.2 L (3.5-5.0) g/dL Triglycerides 176 H (<150) mg/dL HDL Cholesterol 30 L (40-60) mg/dL 10/21/18 10/21/18 10/22/18 Range/Units 16:46 20:31 06:02 RBC (4.30-5.90) m/uL Hgb (13.0-17.5) gm/dL Hct (39.0-53.0) % Plt Count (150-450) k/uL Lymphocytes # (1.0-4.8) k/uL Chloride (98-107) mmol/L Carbon Dioxide (22-30) mmol/L Glucose (74-99) mg/dL POC Glucose (mg/dL) 121 H 123 H 121 H (75-99) mg/dL Total Bilirubin (0.2-1.3) mg/dL Delta Bilirubin (0.0-0.2) mg/dL Total Protein (6.3-8.2) g/dL Albumin (3.5-5.0) g/dL Triglycerides (<150) mg/dL HDL Cholesterol (40-60) mg/dL 10/22/18 10/22/18 10/22/18 Range/Units 06:24 06:24 11:25 RBC 3.85 L (4.30-5.90) m/uL Hgb 12.5 L (13.0-17.5) gm/dL Hct 37.2 L (39.0-53.0) % Plt Count 61 L (150-450) k/uL Lymphocytes # 0.8 L (1.0-4.8) k/uL Chloride 110 H (98-107) mmol/L Carbon Dioxide 21 L (22-30) mmol/L Glucose 122 H (74-99) mg/dL POC Glucose (mg/dL) 120 H (75-99) mg/dL Total Bilirubin 1.6 H (0.2-1.3) mg/dL Delta Bilirubin 0.6 H (0.0-0.2) mg/dL Total Protein (6.3-8.2) g/dL Albumin (3.5-5.0) g/dL Triglycerides (<150) mg/dL HDL Cholesterol (40-60) mg/dL Microbiology - Last 24 Hours (Table) 10/20/18 07:15 Blood Culture Gram Stain - Final Blood Blood Culture - Final Beta Hemolytic Strep Group G 10/20/18 08:20 Urine Culture - Final Urine,Catheterized Assessment and Plan Plan: Assessment and plan #1 chest pain with some atypical features for acute coronary syndrome. Troponins are negative 3. EKG shows normal sinus rhythm with right bundle branch block pattern. #2 fever of 103 on admission. Blood cultures have been ordered and are positive for beta-hemolytic strep group G. Cellulitis of the left lower extremity #3 COPD #4 known history of coronary artery disease with prior stent placements #5 diabetes #6 Hypertension #7 hyperlipidemia #8 low platelet count, patient has a history of this. Plan Patient's pain is very atypical for acute coronary syndrome, echo cardiac gram with Doppler study revealed an ejection fraction of 45-50%. Patient currently receiving treatment for cellulitis. From cardiology's perspective, we'll follow him along with you now on an as-needed basis only, please don't hesitate to call with any questions. We will make him a follow-up appointment to see Dr. Hernadez in the office post discharge DNP note has been reviewed, I agree with a documented findings and plan of care. Patient was seen and examined.
--- NOTE | 2018-10-22 14:08 | P.PN ---
Subjective This is a pleasant 73 years old male with past medical history of heart failure , coronary artery disease, ischemic cardiomyopathy diabetes mellitus, GERD, hyperlipidemia, hypertension, status post cardiac cath with stent placement who presents because of chest pain patient states that 1:00 this morning he woke up feeling cold associated with central chest pain that lasted for 10-15 minutes. Was severe, felt like pressure or squeezing similar to his old heart attack. Does not smoke of shortness of breath. He has some nausea but no vomiting. Has some sweating with chills. In the emergency room he had a temperature of 1 or 3.1 (please refer to emergency room physician not) , however no other fever was charted. No leukocytosis. Creatinine was 0.8. His lactic lactic acid was 2.8. Total bilirubin is 1.4. Patient already got ceftriaxone in the emergency room. He was started on normal saline at 100 L/h. 10/21/18 Patient abdominal pain is improved over 2 days complaining of from left leg pain. He denies abdominal pain but on exam he has some epigastric tenderness. cardiology follow-up is appreciated. his blood culture came back positive with beta hemolytic strep group G. He is already on Zosyn as per ID team recommendation. Patient continue on IV fluids for now. Abdominal ultrasound was noted, no source would explain patient presentation. Patient's BMP was improving. His looping still elevated, rest of liver enzymes were within normal limits. WBC is 3.9 10/22/2018 Patient still complaining from left leg pain and redness, suspicious for cellulitis. Which is improving now. His WBC is 4.6. Patient is afebrile as his fever on admission has subsided last one was on the 10/20/2018 at 102. His antibiotics has been adjusted by ID team to ceftriaxone. Of note patient was having hepatosplenomegaly and thrombocytopenia with elevated bilirubin. We will call hematology and gastroenterology consult. CONSTITUTIONAL: No fever, no malaise, no fatigue. HEENT: No recent visual problems or hearing problems. Denied any sore throat. CARDIOVASCULAR: No orthopnea, PND, no palpitations, no syncope. PULMONARY: No shortness of breath, no cough, no hemoptysis. GASTROINTESTINAL:Normoactive bowel sounds. NEUROLOGICAL: No headaches, no weakness, no numbness. HEMATOLOGICAL: Denies any bleeding or petechiae. GENITOURINARY: Denies any burning micturition, frequency, or urgency. MUSCULOSKELETAL/RHEUMATOLOGICAL: Denies any joint pain, swelling, or any muscle pain. ENDOCRINE: Denies any polyuria or polydipsia. Medications are reviewed in details including dosages. Objective - Vital Signs Vital signs: Vital Signs Temp 97.8 F 10/22/18 12:00 Pulse 65 10/22/18 12:00 Resp 18 10/22/18 12:00 BP 134/60 10/22/18 12:00 Pulse Ox 95 10/22/18 12:00 Intake & Output 10/21/18 10/22/18 10/22/18 18:59 06:59 18:59 Intake Total 480 1300 480 Output Total 200 Balance 480 1100 480 Weight 115.4 kg Intake: IV 1300 Piperacillin-Tazobactam 3 900 .375 gm In Sodium Chloride 0.9% 100 ml @ 25 mls/hr IVPB Q8HR [facility] Rx# :[id number] Sodium Chloride 0.9% 1, 400 000 ml @ 50 mls/hr IV . Q20H [facility] Rx#:[id number] Oral 480 480 Output: Urine 200 Other: # Voids 1 2 # Bowel Movements 0 - Exam GENERAL: The patient is alert and oriented x3, not in any acute distress. Well developed, well nourished. Obese HEENT: Pupils are round and equally reacting to light. EOMI. No scleral icterus. No conjunctival pallor. Normocephalic, atraumatic. No pharyngeal erythema. No thyromegaly. CARDIOVASCULAR: S1 and S2 present. No murmurs, rubs, or gallops. PULMONARY: Chest is clear to auscultation, no wheezing or crackles. ABDOMEN: Soft, nontender, nondistended, normoactive bowel sounds. No palpable organomegaly. MUSCULOSKELETAL: No joint swelling or deformity. EXTREMITIES: No cyanosis, clubbing, or pedal edema. NEUROLOGICAL: Gross neurological examination did not reveal any focal deficits. SKIN: No rashes. - Labs CBC & Chem 7: 10/22/18 06:24 10/22/18 06:24 Labs: Abnormal Lab Results - Last 24 Hours (Table) 10/21/18 10/21/18 10/22/18 Range/Units 16:46 20:31 06:02 RBC (4.30-5.90) m/uL Hgb (13.0-17.5) gm/dL Hct (39.0-53.0) % Plt Count (150-450) k/uL Lymphocytes # (1.0-4.8) k/uL Chloride (98-107) mmol/L Carbon Dioxide (22-30) mmol/L Glucose (74-99) mg/dL POC Glucose (mg/dL) 121 H 123 H 121 H (75-99) mg/dL Total Bilirubin (0.2-1.3) mg/dL Delta Bilirubin (0.0-0.2) mg/dL 10/22/18 10/22/18 10/22/18 Range/Units 06:24 06:24 11:25 RBC 3.85 L (4.30-5.90) m/uL Hgb 12.5 L (13.0-17.5) gm/dL Hct 37.2 L (39.0-53.0) % Plt Count 61 L (150-450) k/uL Lymphocytes # 0.8 L (1.0-4.8) k/uL Chloride 110 H (98-107) mmol/L Carbon Dioxide 21 L (22-30) mmol/L Glucose 122 H (74-99) mg/dL POC Glucose (mg/dL) 120 H (75-99) mg/dL Total Bilirubin 1.6 H (0.2-1.3) mg/dL Delta Bilirubin 0.6 H (0.0-0.2) mg/dL Microbiology - Last 24 Hours (Table) 10/20/18 07:15 Blood Culture Gram Stain - Final Blood Blood Culture - Final Beta Hemolytic Strep Group G 10/20/18 08:20 Urine Culture - Final Urine,Catheterized Assessment and Plan Assessment: Cellulitis of the left leg, improving. Hepatosplenomegaly with thrombocytopenia Chest pain, cardiac causes were ruled out by cardiology team. High lactic acid, resolved History of ischemic cardiomyopathy History of coronary artery disease, status post stent placement Diabetes mellitus GERD Hyperlipidemia Essential hypertension Plan: This is a pleasant 73 years old male who presents because of chest pain, and fever. Admitted to the general medical floor, continue with aspirin. Call cardiology consult. Infectious team consult. Continue with IV fluids. Antibiotics are per ID team. Labs and medication were reviewed.. Continue same treatment. Continue with symptomatic treatment. Resume home medication. Monitor lytes and vitals. DVT and GI prophylaxis. Further recommendations of the clinical course of the patient DVT prophylaxis: Subcutaneous heparin GI Prophylaxis: Pepcid PT/OT: Pending Prognosis is guarded
[2018-10-22] MEDS: cefTRIAXone 2,000 MG in SODIUM CHLORIDE 0.9% 100 ML IVPB SCH (16:22)
[2018-10-22 16:23] LABS: Glucose,Whole Blood 112 mg/dL (75-99)
--- NOTE | 2018-10-22 16:49 | P.CONS ---
History of Present Illness - Reason for Consult Consult date: 10/22/18 Thrombocytopenia Requesting physician: Angel E Sheet - Chief Complaint Chest Pain - History of Present Illness This is a pleasant 73 years old male with multiple co-morbidies including medical history of chronic Thrombocytopenia, Heart Disease/Failure, CAD, Ichemic Cardiomyopathy, DM, GERD, HLD, KS, HTN, and history of cardiac cath with stent placement. He presented to Emergency with complaints of chest pain which was severe and woke him up in the middle of night. He described as squeezing similar symptoms when he had previous KS. Positive chils and subjective fevers, no SOB, No hemataemesis or bloody diarrhea. He did have nausea, no vomiting. Last CT scans were reviewed and patient has mild hepatomegaly noted. He has a remote history of tobacco abuse, quit greatwer than 15 years ago. Hematology has been consulted regarding his chronic thrombocytopenia, which appears to be slowly worsening over the years. Review of Systems A 14 point review of systems assessed and completed and all negative except HPI Past Medical History Past Medical History: Coronary Artery Disease (CAD), Chest Pain / Angina, Heart Failure, Diabetes Mellitus, GERD/Reflux, Hyperlipidemia, Hypertension, Myocardial Infarction (KS), Pneumonia, Vascular Disorder Additional Past Medical History / Comment(s): Ischemic cardiomyopathy, nonsustained ventriclar arrhythmia, systolic heart failure, KS x 2 in 2001 and 1994, 06/2018 acute cellulitis 2ndary to local trauma L kneecap, kidney stones which pt believes he passed, gout bilateral feet toes. Last Myocardial Infarction Date:: 2001 History of Any Multi-Drug Resistant Organisms: None Reported Past Surgical History: Heart Catheterization, Heart Catheterization With Stent, Joint Replacement, Orthopedic Surgery Additional Past Surgical History / Comment(s): PCIs with a total of 6 stents per patient, cardiac ablation-AVRNT, EPS, R knee arthroscopy, bilateral total knee replacements with L side done twice, bilateral shoulder rotator cuff surgeries with L side done 3 times, L ankle surgery, bilateral carpal tunnel releases. Past Anesthesia/Blood Transfusion Reactions: No Reported Reaction Date of Last Stent Placement:: 02/10/17 Additional Psychological History / Comment(s): Is , of cardiovascular disease in April still actively dealing with the grief. No experience. No travel. retired. Pet dog in the home. Stopped smoking several years ago Smoking Status: Former smoker - Past Family History Father History Unknown: Yes Additional Family Medical History / Comment(s): Pt does not know his father's history. His parents were . Mother History Unknown: Yes Family Medical History: Cancer Additional Family Medical History / Comment(s): Pt states mother had some form of cancer which she from. Medications and Allergies Home Medications Medication Instructions Recorded Confirmed Type Allopurinol [Zyloprim] 300 mg PO DAILY 06/07/14 10/20/18 History Insulin NPH Hum/Reg Insulin Hm 10 unit SQ AC-SUPPER 06/07/14 10/20/18 History [NovoLIN 70-30 100 UNIT/ML VIAL] Isosorbide Mononitrate [Imdur] 30 mg PO DAILY 06/07/14 10/20/18 History metFORMIN HCL 1,000 mg PO BID 06/07/14 10/20/18 History Ferrous Sulfate [Iron (65 MG 325 mg PO DAILY 03/07/16 10/20/18 History Elemental)] Spironolactone [Aldactone] 25 mg PO DAILY #30 tab 03/09/16 10/20/18 Rx Atorvastatin [Lipitor] 20 mg PO HS 07/21/17 10/20/18 History Carvedilol [Coreg] 12.5 mg PO BID 07/21/17 10/20/18 History Insulin NPH Hum/Reg Insulin Hm 20 unit SQ AC-BRKFST #0 07/29/17 10/20/18 Rx [NovoLIN 70-30 100 UNIT/ML VIAL] Acetaminophen [Tylenol Extra 500 mg PO Q4H PRN 10/20/18 10/20/18 History Strength] Aspirin 325 mg PO DAILY 10/20/18 10/20/18 History Allergies Allergy/AdvReac Type Severity Reaction Status Date / Time No Known Allergies Allergy Verified 10/20/18 08:35 Physical Exam Vitals: Vital Signs Temp Pulse Pulse Resp BP Pulse Ox 10/22/18 15:40 98.4 F 65 18 134/65 97 10/22/18 12:00 97.8 F 65 18 134/60 95 10/22/18 08:00 64 18 120/58 96 10/22/18 04:00 97.7 F 72 16 118/56 97 10/21/18 23:09 98.6 F 71 16 140/67 97 10/21/18 20:15 97.9 F 73 16 148/67 99 10/21/18 18:01 72 17 Intake and Output 10/22/18 10/22/18 10/22/18 06:59 14:59 22:59 Intake Total 500 480 Balance 500 480 Intake: IV 500 Piperacillin-Tazobactam 3 100 .375 gm In Sodium Chloride 0.9% 100 ml @ 25 mls/hr IVPB Q8HR [facility] Rx# :[id number] Sodium Chloride 0.9% 1, 400 000 ml @ 50 mls/hr IV . Q20H [facility] Rx#:[id number] Oral 480 Other: # Voids 2 # Bowel Movements 0 Weight 115.4 kg GENERAL: The patient is alert and oriented x3, not in any acute distress. Well developed, well nourished. obese HEENT: EOMI. No scleral icterus. No conjunctival pallor. Normocephalic, atraumatic. No pharyngeal erythema. No Lymphadenopathy CARDIOVASCULAR: S1 and S2 present. No murmurs, rubs, or gallops. PULMONARY: Chest is clear to auscultation, no wheezing or crackles. ABDOMEN: Soft, nontender, nondistended, normoactive bowel sounds. No palpable organomegaly. EXTREMITIES: No cyanosis, clubbing, or pedal edema. NEUROLOGICAL: Gross neurological examination did not reveal any focal deficits. SKIN: No rashes. Results CBC & Chem 7: 10/22/18 06:24 10/22/18 06:24 Labs: Abnormal Lab Results - Last 24 Hours (Table) 10/21/18 10/21/18 10/22/18 Range/Units 16:46 20:31 06:02 RBC (4.30-5.90) m/uL Hgb (13.0-17.5) gm/dL Hct (39.0-53.0) % Plt Count (150-450) k/uL Lymphocytes # (1.0-4.8) k/uL Chloride (98-107) mmol/L Carbon Dioxide (22-30) mmol/L Glucose (74-99) mg/dL POC Glucose (mg/dL) 121 H 123 H 121 H (75-99) mg/dL Total Bilirubin (0.2-1.3) mg/dL Delta Bilirubin (0.0-0.2) mg/dL 1110/22/18 10/22/18 Range/Units 06:24 06:24 11:25 RBC 3.85 L (4.30-5.90) m/uL Hgb 12.5 L (13.0-17.5) gm/dL Hct 37.2 L (39.0-53.0) % Plt Count 61 L (150-450) k/uL Lymphocytes # 0.8 L (1.0-4.8) k/uL Chloride 110 H (98-107) mmol/L Carbon Dioxide 21 L (22-30) mmol/L Glucose 122 H (74-99) mg/dL POC Glucose (mg/dL) 120 H (75-99) mg/dL Total Bilirubin 1.6 H (0.2-1.3) mg/dL Delta Bilirubin 0.6 H (0.0-0.2) mg/dL Microbiology - Last 24 Hours (Table) 10/20/18 07:15 Blood Culture Gram Stain - Final Blood Blood Culture - Final Beta Hemolytic Strep Group G CT scan - abdomen: report reviewed CT scan - chest: report reviewed Assessment and Plan Plan: Assessment and Recommendations: 1. Normocytic, Normo Anemia: - Likely secondary to chronic inflammation/disease - in the presence of chronic thrombocytopenia as well must consider and rule out other etiologies including underlying liver disease, low grade MDS, other - Full anemia work-up in process 2. Thrombocytopenia: - Appears chronic dating back to 2014, although mild decreased baseline from 75 -95, now 60-70. - With platlet count greater than 50K this is considered safe range - No acute bleeding - Medications can also account for this with differentials likely secondary to hepatomegaly, ITP, plus/minus inflammation Thank you for allowing us to participate in the care of this patient, will await full hematologic work-up and Dr. Samayoa will follow-up in am to provide more recs.
[2018-10-22 17:18] LABS: C Reactive Protein 50.5 mg/L (<10.0)
[2018-10-22] MEDS: ACETAMINOPHEN TAB 500 MG TAB PO PRN (18:03)
[2018-10-22] MEDS: INSULN ASP PRT/INSULIN ASPART 100 UNIT/ML 10 ML VIAL SQ SCH (18:05)
[2018-10-22] MEDS: ATORVASTATIN 20 MG TAB PO SCH (20:34)
[2018-10-22 21:09] LABS: Glucose,Whole Blood 146 mg/dL (75-99)
--- NOTE | 2018-10-22 23:46 | P.PN ---
Subjective Progress Note Date: 10/22/18 Pleasant 73-year-old male known to the service from prior care for lower extremity ulceration years ago. Now presents after awakening at 1:00 AM feeling very poorly with discomforts in his chest and chest pressure. He has some shortness of breath also. He was feeling poorly and is a hours went by he noticed that he became very cold and developed chills and what appears to be a brief rigor. By the morning he was feeling so poorly he decided to come to the emergency center without evidence of temperature 103.1 and appear to be acutely ill. The patient's been admitted for sepsis and with this the infectious diseases consultation was requested. This chest x-ray was negative and cardiac workup was negative also at the time of admission. However the patient relates that she sitting upright that he is having some abdominal discomfort. He is not having nausea or emesis relates that he's had some chronic diarrhea over quite some time. It has not changed as of late. He's had no hematemesis melena or hematochezia. He does feel very poorly still at this point in time and believes his abdomen feels worse now than at admission. The records are reviewed he does have a known history of prior diverticulitis as well as nephrolithiasis with infection. 10/21/2018 patient was feeling quite poorly earlier today feeling little better this evening and is up walking in the hallway. He is to begin pain to his left leg this become quite erythematous. The significant abdominal pain has improved. She is able to eat throughout the day without nausea or emesis. He' s had no hematemesis melena or diarrhea September patient is feeling better today. He's been able to ambulate but does still have shortness of breath with exertion. Relates pain to the left leg is slightly improved. Still does not feel back to his baseline. Objective - Vital Signs Vital signs: Vital Signs Temp 98.1 F 10/22/18 19:55 Pulse 60 10/22/18 23:00 Resp 17 10/22/18 23:00 BP 115/78 10/22/18 23:00 Pulse Ox 96 10/22/18 23:00 Intake & Output 10/22/18 10/22/18 10/23/18 06:59 18:59 06:59 Intake Total 1300 720 Output Total 200 Balance 1100 720 Weight 115.4 kg Intake: IV 1300 Piperacillin-Tazobactam 3 900 .375 gm In Sodium Chloride 0.9% 100 ml @ 25 mls/hr IVPB Q8HR [facility] Rx# :[id number] Sodium Chloride 0.9% 1, 400 000 ml @ 50 mls/hr IV . Q20H [facility] Rx#:[id number] Oral 720 Output: Urine 200 Other: # Voids 2 2 # Bowel Movements 0 - Exam Pleasant 73-year-old male with obesity who appears to be acutely ill HEENT: Anicteric conjunctiva are pink and moist nasal mucosa grossly intact without significant lesions, there is no thrush. Neck: The neck is supple without significant lymphadenopathy or thyromegaly. Lungs: Good bilateral air entry without significant crackles or wheezing. There is no significant bronchial sounds. There is no egophony or dullness. Heart: Regular rate and rhythm with an audible S1-S2, no S3 no S4. There is no significant murmur click or rub, PMI was nondisplaced. Abdomen: Positive bowel sounds soft and nontender without palpable masses or organomegaly. There was no guarding or rebound. There is improved abdominal tenderness in the right upper quadrant Extremities: The upper extremities have excellent pulses they are symmetric, no significant petechiae or telangiectasia. No splinter hemorrhages were noted. The right lower extremity is without acute abnormality. The left lower extremities now shows evidence of dense erythema over the pretibial area that is quite tender and there is some tenderness that is tracking posteriorly on the leg also. Neuro: Awake alert oriented to person place and time. There are no acute new gross focal sensory motor deficits. - Labs CBC & Chem 7: 10/22/18 06:24 10/22/18 06:24 Labs: Abnormal Lab Results - Last 24 Hours (Table) 10/22/18 10/22/18 10/22/18 Range/Units 06:02 06:24 06:24 RBC 3.85 L (4.30-5.90) m/uL Hgb 12.5 L (13.0-17.5) gm/dL Hct 37.2 L (39.0-53.0) % Plt Count 61 L (150-450) k/uL Lymphocytes # 0.8 L (1.0-4.8) k/uL ESR (0-15) mm/hr Chloride 110 H (98-107) mmol/L Carbon Dioxide 21 L (22-30) mmol/L Glucose 122 H (74-99) mg/dL POC Glucose (mg/dL) 121 H (75-99) mg/dL Total Bilirubin 1.6 H (0.2-1.3) mg/dL Delta Bilirubin 0.6 H (0.0-0.2) mg/dL Lactate Dehydrogenase (313-618) U/L C-Reactive Protein (<10.0) mg/L 10/22/18 10/22/18 10/22/18 Range/Units 06:24 06:24 11:25 RBC (4.30-5.90) m/uL Hgb (13.0-17.5) gm/dL Hct (39.0-53.0) % Plt Count (150-450) k/uL Lymphocytes # (1.0-4.8) k/uL ESR 30 H (0-15) mm/hr Chloride (98-107) mmol/L Carbon Dioxide (22-30) mmol/L Glucose (74-99) mg/dL POC Glucose (mg/dL) 120 H (75-99) mg/dL Total Bilirubin (0.2-1.3) mg/dL Delta Bilirubin (0.0-0.2) mg/dL Lactate Dehydrogenase 676 H (313-618) U/L C-Reactive Protein 50.5 H (<10.0) mg/L 10/22/18 10/22/18 Range/Units 16:15 21:07 RBC (4.30-5.90) m/uL Hgb (13.0-17.5) gm/dL Hct (39.0-53.0) % Plt Count (150-450) k/uL Lymphocytes # (1.0-4.8) k/uL ESR (0-15) mm/hr Chloride (98-107) mmol/L Carbon Dioxide (22-30) mmol/L Glucose (74-99) mg/dL POC Glucose (mg/dL) 112 H 146 H (75-99) mg/dL Total Bilirubin (0.2-1.3) mg/dL Delta Bilirubin (0.0-0.2) mg/dL Lactate Dehydrogenase (313-618) U/L C-Reactive Protein (<10.0) mg/L Microbiology - Last 24 Hours (Table) 10/20/18 07:15 Blood Culture Gram Stain - Final Blood Blood Culture - Final Beta Hemolytic Strep Group G Assessment and Plan (1) Sepsis Current Visit: Yes Status: Acute Code(s): A41.9 - SEPSIS, UNSPECIFIED ORGANISM SNOMED Code(s): 81505131 (2) Abdominal pain Narrative/Plan: 73-year-old male with a history of underlying cardiovascular disease presents to Hospital with concerns to pain in his chest as well as abdominal pain high- grade fever chills and rigor. At presentation 103 fever was noted patient did not take his temperature at home. However he did have the chills. The patient appears to be acutely ill and concerns to abdominal sepsis as the etiology of his current illness. With elevated total bilirubin and abdominal ultrasound was requested to evaluate his biliary tract and gallbladder as potential source. The patient does have a history also of diverticulitis and with his obesity abdominal exam is somewhat difficult. If ultrasound is none guiding then may require computed tomography scan of his abdomen. Antibiotic therapy is altered to piperacillin tazobactam for coverage of abdominal sepsis, he has no history of MRSA. Cultures will be monitored imaging studies will further direct therapy. If abdominal pain continues may benefit from a surgical consult. 10/21/2018 patient is feeling considerably better today. Abdominal pain is generally resolved. Is having discomfort in the left lower extremity and a dense area erythema has started. Consequently a bacteremic cellulitis appears to be the etiology of his sepsis at admission. Fortunately he is improving today. We'll continue current antibiotic therapy while cultures remain in process. 10/22/2018 patient has had further improvement. However continues to have pain and swelling to the left foot and lower leg. Fever has improved with no further blood cultures. A group C strep has been isolating consequently antibiotic therapy has been de-escalated to Rocephin daily. When he is ready for discharge to home options would be for antistreptococcal quinolone with either moxifloxacin or levofloxacin to complete a total of 10 days of therapy for his bacteremic streptococcal cellulitis. Continue with local wound care with Silvadene and wrapped the left leg. Elevated rest. Continue with treatment of his underlying medical issues including edema control. Current Visit: Yes Status: Acute Code(s): R10.9 - UNSPECIFIED ABDOMINAL PAIN SNOMED Code(s): 19214571 (3) Fever Current Visit: Yes Status: Acute Code(s): R50.9 - FEVER, UNSPECIFIED SNOMED Code(s): 597094903
[2018-10-23 05:43] LABS: Iron Saturation 11.15 (15.00-50.00); Rheumatoid Factor 12 IU/mL (0-15)
[2018-10-23 05:52] LABS: Glucose,Whole Blood 119 mg/dL (75-99)
[2018-10-23] MEDS: INSULIN ASPART 100 UNIT/ML 1 ML 10 ML VIAL SQ SCH ×4 (06:11→21:01)
[2018-10-23] MEDS: CARVEDILOL 12.5 MG TAB PO SCH ×2 (06:19→17:41)
[2018-10-23 06:27] LABS: Basophils % (A) 0 %; Eosinophils # (A) 0.2 k/uL (0-0.7); Eosinophils % (A) 4 %; HCT 35.5 % (39.0-53.0); HGB 12.2 gm/dL (13.0-17.5); Lymphocytes % (A) 22 %; MCH 33.1 pg (25.0-35.0); MCHC 34.3 g/dL (31.0-37.0); MCV 96.6 fL (80.0-100.0); Mean Platelet Volume 7.3; Monocytes # (A) 0.3 k/uL (0-1.0); Monocytes % (A) 6 %; Neutrophils # (A) 2.9 k/uL (1.3-7.7); Neutrophils % (A) 64 %; RBC 3.67 m/uL (4.30-5.90); RDW 14.5 % (11.5-15.5); WBC 4.5 k/uL (3.8-10.6)
[2018-10-23 06:47] LABS: ALT 42 U/L (21-72); AST 46 U/L (17-59); Albumin 3.7 g/dL (3.5-5.0); Alkaline Phosphatase 106 U/L (38-126); Anion Gap 8 mmol/L; Bilirubin, Delta 0.3 mg/dL (0.0-0.2); Bilirubin,Unconjugated 0.6 mg/dL (0.0-1.1); Blood Urea Nitrogen 11 mg/dL (9-20); Calcium 8.9 mg/dL (8.4-10.2); Carbon Dioxide 23 mmol/L (22-30); Chloride 109 mmol/L (98-107); Glucose 125 mg/dL (74-99); Potassium 4.2 mmol/L (3.5-5.1); Sodium 140 mmol/L (137-145); Total Bilirubin 0.9 mg/dL (0.2-1.3); Total Protein 6.7 g/dL (6.3-8.2)
[2018-10-23 07:05] LABS: Platelet Count 78 k/uL (150-450)
[2018-10-23] MEDS: ALLOPURINOL 300 MG TAB PO SCH (07:45)
[2018-10-23] MEDS: SPIRONOLACTONE 25 MG TAB PO SCH (07:46)
[2018-10-23] MEDS: HEPARIN SODIUM,PORCINE 5,000 UNIT/ML 1 ML VIAL SQ SCH ×2 (07:46→21:19)
[2018-10-23] MEDS: ASPIRIN 81 MG PO SCH (07:46)
[2018-10-23] MEDS: ACETAMINOPHEN TAB 500 MG TAB PO PRN ×2 (07:46→21:17)
[2018-10-23] MEDS: FAMOTIDINE 20 MG TAB PO SCH ×2 (07:46→21:19)
[2018-10-23] MEDS: ISOSORBIDE MONONITRATE ER 30 MG TAB.ER.24H PO SCH (07:46)
[2018-10-23] MEDS: FERROUS SULFATE 325 MG TAB PO SCH (07:46)
[2018-10-23] MEDS: cefTRIAXone 2,000 MG in SODIUM CHLORIDE 0.9% 100 ML IVPB SCH (07:46)
[2018-10-23 11:39] LABS: Folate, Serum 17.6 ng/mL
--- NOTE | 2018-10-23 11:48 | P.CONS ---
History of Present Illness - Reason for Consult Consult date: 10/23/18 hepatospleenomegaly elevated bilirubin Requesting physician: Angel E Sheet - Chief Complaint chest pain - History of Present Illness 73-year-old gentleman admitted with acute chest pain. Past medical history of CAD PCI multiple stents, CHF,, ischemic cardiomyopathy, diabetes mellitus, GERD , obesity, RI, hypertension, thrombocytopenia. Consult requested for hepatosplenomegaly and hyperbilirubinemia. Patient states he has no known liver disease. No history of alcohol abuse. No autoimmune disorders. Patient is unsure if he has a hepatitis C exposure history he was told decades ago he may have hepatitis C was told he is a "carrier" but again unsure. Hemoglobin 12. MCV 96. Platelet 55,000. White count 3.9. INR 1.1. Hepatitis screen nonreactive. Iron 30. TIBC 269. Saturation 11%. Ferritin 232. Albumin 3.7. Total bilirubin 0.9-1.9. AST 33-46. ALT 32-42. AP 58-106. Abdominal ultrasound liver length 19.8 cm. CBD 0.3 cm. Spleen 15.6 cm. Liver is enlarged heterogeneous echogenic with fatty sparing along the gallbladder fossa. Review of Systems Constitutional: Denies fever, chills, sweats, weight gain, or loss. HEENT: Negative for migraines, blurred vision or loss, earaches, drainage, tinnitus, oral mucosal lesions, dysphagia, or odynophagia. Cardiac: With chest pain denies, arrhythmias, or palpitation. Respiratory: Negative for shortness of breath, hemoptysis, cough, or sputum production. Gastrointestinal: See HPI for pertinent findings. Genitourinary: Negative for hematuria, urgency, frequency, polyuria, dysuria, or penile discharge. Musculoskeletal: Negative for muscle aches, swelling, arthritis, and arthralgias. Neurologic: Negative for stroke or TIA. Endocrine: Negative for thyroid problems. Skin: Chronic lower extremity swelling ulceration. Negative for rash or itching. Psychiatric: Negative history for depression and anxiety Past Medical History Past Medical History: Coronary Artery Disease (CAD), Chest Pain / Angina, Heart Failure, Diabetes Mellitus, GERD/Reflux, Hyperlipidemia, Hypertension, Myocardial Infarction (RI), Pneumonia, Vascular Disorder Additional Past Medical History / Comment(s): Ischemic cardiomyopathy, nonsustained ventriclar arrhythmia, systolic heart failure, RI x 2 in 2001 and 1994, 06/2018 acute cellulitis 2ndary to local trauma L kneecap, kidney stones which pt believes he passed, gout bilateral feet toes. Last Myocardial Infarction Date:: 2001 History of Any Multi-Drug Resistant Organisms: None Reported Past Surgical History: Heart Catheterization, Heart Catheterization With Stent, Joint Replacement, Orthopedic Surgery Additional Past Surgical History / Comment(s): PCIs with a total of 6 stents per patient, cardiac ablation-AVRNT, EPS, R knee arthroscopy, bilateral total knee replacements with L side done twice, bilateral shoulder rotator cuff surgeries with L side done 3 times, L ankle surgery, bilateral carpal tunnel releases. Past Anesthesia/Blood Transfusion Reactions: No Reported Reaction Date of Last Stent Placement:: 02/10/17 Additional Psychological History / Comment(s): Is , of cardiovascular disease in April still actively dealing with the grief. No experience. No travel. retired. Pet dog in the home. Stopped smoking several years ago Smoking Status: Former smoker - Past Family History Father History Unknown: Yes Additional Family Medical History / Comment(s): Pt does not know his father's history. His parents were . Mother History Unknown: Yes Family Medical History: Cancer Additional Family Medical History / Comment(s): Pt states mother had some form of cancer which she from. Medications and Allergies Home Medications Medication Instructions Recorded Confirmed Type Allopurinol [Zyloprim] 300 mg PO DAILY 06/07/14 10/20/18 History Insulin NPH Hum/Reg Insulin Hm 10 unit SQ AC-SUPPER 06/07/14 10/20/18 History [NovoLIN 70-30 100 UNIT/ML VIAL] Isosorbide Mononitrate [Imdur] 30 mg PO DAILY 06/07/14 10/20/18 History metFORMIN HCL 1,000 mg PO BID 06/07/14 10/20/18 History Ferrous Sulfate [Iron (65 MG 325 mg PO DAILY 03/07/16 10/20/18 History Elemental)] Spironolactone [Aldactone] 25 mg PO DAILY #30 tab 03/09/16 10/20/18 Rx Atorvastatin [Lipitor] 20 mg PO HS 07/21/17 10/20/18 History Carvedilol [Coreg] 12.5 mg PO BID 07/21/17 10/20/18 History Insulin NPH Hum/Reg Insulin Hm 20 unit SQ AC-BRKFST #0 07/29/17 10/20/18 Rx [NovoLIN 70-30 100 UNIT/ML VIAL] Acetaminophen [Tylenol Extra 500 mg PO Q4H PRN 10/20/18 10/20/18 History Strength] Aspirin 325 mg PO DAILY 10/20/18 10/20/18 History Allergies Allergy/AdvReac Type Severity Reaction Status Date / Time No Known Allergies Allergy Verified 10/20/18 08:35 Physical Exam Vitals: Vital Signs Temp Pulse Resp BP Pulse Ox 10/23/18 07:00 97.7 F 61 18 130/62 97 10/23/18 01:53 97.8 F 61 17 104/65 97 10/22/18 23:00 60 17 115/78 96 10/22/18 19:55 98.1 F 65 18 127/67 97 10/22/18 15:40 98.4 F 65 18 134/65 97 10/22/18 12:00 97.8 F 65 18 134/60 95 Intake and Output 10/22/18 10/23/18 10/23/18 22:59 06:59 14:59 Intake Total 240 400 240 Balance 240 400 240 Intake: IV 400 Sodium Chloride 0.9% 1, 400 000 ml @ 50 mls/hr IV . Q20H [facility] Rx#:[id number] Oral 240 240 Other: # Voids 2 Weight 114.8 kg General appearance: The patient is alert, oriented, in no acute distress. HET: Head is normocephalic and atraumatic. Pupils are equal and reactive. Oropharynx is clear without lesions. Neck: Supple without lymphadenopathy. Trachea midline. Heart: S1 S2. Regular rate and rhythm. Lungs: No crackles or wheezes are heard. Abdomen: Soft, nontender, obese, nondistended with bowel sounds. No peritoneal signs. No palpable organomegaly or masses. Extremities: +2/+3 bilateral lower extremity edema. Neurological: No focal deficits. Strength and sensation are grossly intact. Results CBC & Chem 7: 10/25/18 07:06 10/25/18 07:06 Labs: Abnormal Lab Results - Last 24 Hours (Table) 10/21/18 10/22/18 10/22/18 Range/Units 05:46 06:24 06:24 RBC (4.30-5.90) m/uL Hgb (13.0-17.5) gm/dL Hct (39.0-53.0) % Plt Count (150-450) k/uL ESR 30 H (0-15) mm/hr Chloride (98-107) mmol/L Glucose (74-99) mg/dL POC Glucose (mg/dL) (75-99) mg/dL Iron 30 L (65-175) ug/dL Iron Saturation 11.15 L (15.00-50.00) Delta Bilirubin (0.0-0.2) mg/dL Lactate Dehydrogenase 676 H (313-618) U/L C-Reactive Protein 50.5 H (<10.0) mg/L 10/22/18 10/22/18 10/23/18 Range/Units 16:15 21:07 05:51 RBC (4.30-5.90) m/uL Hgb (13.0-17.5) gm/dL Hct (39.0-53.0) % Plt Count (150-450) k/uL ESR (0-15) mm/hr Chloride (98-107) mmol/L Glucose (74-99) mg/dL POC Glucose (mg/dL) 112 H 146 H 119 H (75-99) mg/dL Iron (65-175) ug/dL Iron Saturation (15.00-50.00) Delta Bilirubin (0.0-0.2) mg/dL Lactate Dehydrogenase (313-618) U/L C-Reactive Protein (<10.0) mg/L 10/23/18 10/23/18 Range/Units 05:52 05:52 RBC 3.67 L (4.30-5.90) m/uL Hgb 12.2 L (13.0-17.5) gm/dL Hct 35.5 L (39.0-53.0) % Plt Count 78 L (150-450) k/uL ESR (0-15) mm/hr Chloride 109 H (98-107) mmol/L Glucose 125 H (74-99) mg/dL POC Glucose (mg/dL) (75-99) mg/dL Iron (65-175) ug/dL Iron Saturation (15.00-50.00) Delta Bilirubin 0.3 H (0.0-0.2) mg/dL Lactate Dehydrogenase (313-618) U/L C-Reactive Protein (<10.0) mg/L Microbiology - Last 24 Hours (Table) 10/21/18 22:44 Blood Culture - Preliminary Blood No Growth after 24 hours 10/20/18 07:15 Blood Culture Gram Stain - Final Blood Blood Culture - Final Beta Hemolytic Strep Group G US - abdomen: report reviewed (Dr. Varghese) Assessment and Plan (1) Hepatosplenomegaly Narrative/Plan: 73-year-old gentleman with a history of multiple comorbidities CAD, ischemic cardiomyopathy, diabetes, hypertension, hyperlipidemia, obesity presents with acute chest pain underlying chronic thrombocytopenia etiology unclear with hepatosplenomegaly per ultrasound imaging as well as evidence of fatty liver disease. Underlying chronic nonalcoholic liver disease within the differential. Hepatitis screen nonreactive. Normal INR indicating preserved synthetic function. Current Visit: Yes Status: Acute Code(s): R16.2 - HEPATOMEGALY WITH SPLENOMEGALY, NOT ELSEWHERE CLASSIFIED SNOMED Code(s): 43588302 (2) Fatty liver disease, nonalcoholic Current Visit: Yes Status: Acute Code(s): K76.0 - FATTY (CHANGE OF) LIVER, NOT ELSEWHERE CLASSIFIED SNOMED Code(s): 490254640 (3) Thrombocytopenia Current Visit: Yes Status: Acute Code(s): D69.6 - THROMBOCYTOPENIA, UNSPECIFIED SNOMED Code(s): 278161417 (4) Chest pain Current Visit: Yes Status: Acute Code(s): R07.9 - CHEST PAIN, UNSPECIFIED SNOMED Code(s): 02115753 Plan: 1. We'll request full serologic workup for chronic liver disease. Liver function tests within normal limits today. We'll follow with you. Thank you for this kind referral and the opportunity to participate in the care of your patient. This consultation was discussed with Dr. Varghese. The impression and plan of care have been directed as dictated.
[2018-10-23 12:40] LABS: Glucose,Whole Blood 117 mg/dL (75-99)
[2018-10-23 17:14] LABS: Glucose,Whole Blood 116 mg/dL (75-99)
[2018-10-23 17:36] LABS: Immunoglobulin M 90.7 mg/dL (40.0-280.0)
[2018-10-23] MEDS: INSULN ASP PRT/INSULIN ASPART 100 UNIT/ML 10 ML VIAL SQ SCH (17:41)
--- NOTE | 2018-10-23 18:45 | P.PN ---
Subjective Progress Note Date: 10/23/18 The patient was in good spirits when evaluated. Lower extremity swelling is improved. He denies any obvious bleeding. He denied any chest pain or shortness of breath at this time. He has been evaluated by cardiology, and chest pain is felt to be atypical with no further cardiac workup required at this time. Objective - Vital Signs Vital signs: Vital Signs Temp 97.4 F L 10/23/18 15:00 Pulse 61 10/23/18 15:00 Resp 18 10/23/18 15:00 BP 148/70 10/23/18 15:00 Pulse Ox 98 10/23/18 15:00 Intake & Output 10/22/18 10/23/18 10/23/18 18:59 06:59 18:59 Intake Total 720 400 880 Balance 720 400 880 Weight 114.8 kg Intake: IV 400 400 Sodium Chloride 0.9% 1, 400 400 000 ml @ 50 mls/hr IV . Q20H [facility] Rx#:[id number] Oral 720 480 Other: # Voids 2 2 # Bowel Movements 0 - Constitutional General appearance: Present: no acute distress - EENT Eyes: Present: EOMI ENT: Present: hearing grossly normal, normal oropharynx - Neck Thyroid: bilateral: normal size - Respiratory Respiratory: bilateral: CTA - Cardiovascular Rhythm: regular Heart sounds: normal: S1, S2 - Gastrointestinal General gastrointestinal: Present: normal bowel sounds, soft - Integumentary Integumentary: Present: normal - Neurologic Neurologic: Present: CNII-XII intact - Musculoskeletal Musculoskeletal: Present: generalized weakness, strength equal bilaterally - Psychiatric Psychiatric: Present: A&O x's 3, intact judgment & insight - Labs CBC & Chem 7: 10/23/18 05:52 10/23/18 05:52 Labs: Abnormal Lab Results - Last 24 Hours (Table) 10/21/18 10/22/18 10/23/18 Range/Units 05:46 21:07 05:51 RBC (4.30-5.90) m/uL Hgb (13.0-17.5) gm/dL Hct (39.0-53.0) % Plt Count (150-450) k/uL Chloride (98-107) mmol/L Glucose (74-99) mg/dL POC Glucose (mg/dL) 146 H 119 H (75-99) mg/dL Iron 30 L (65-175) ug/dL Iron Saturation 11.15 L (15.00-50.00) Delta Bilirubin (0.0-0.2) mg/dL Vitamin B12 89.0 L (200.0-944.0) pg/mL 10/23/18 10/23/18 10/23/18 Range/Units 05:52 05:52 12:34 RBC 3.67 L (4.30-5.90) m/uL Hgb 12.2 L (13.0-17.5) gm/dL Hct 35.5 L (39.0-53.0) % Plt Count 78 L (150-450) k/uL Chloride 109 H (98-107) mmol/L Glucose 125 H (74-99) mg/dL POC Glucose (mg/dL) 117 H (75-99) mg/dL Iron (65-175) ug/dL Iron Saturation (15.00-50.00) Delta Bilirubin 0.3 H (0.0-0.2) mg/dL Vitamin B12 (200.0-944.0) pg/mL 10/23/18 Range/Units 17:11 RBC (4.30-5.90) m/uL Hgb (13.0-17.5) gm/dL Hct (39.0-53.0) % Plt Count (150-450) k/uL Chloride (98-107) mmol/L Glucose (74-99) mg/dL POC Glucose (mg/dL) 116 H (75-99) mg/dL Iron (65-175) ug/dL Iron Saturation (15.00-50.00) Delta Bilirubin (0.0-0.2) mg/dL Vitamin B12 (200.0-944.0) pg/mL Microbiology - Last 24 Hours (Table) 10/21/18 22:44 Blood Culture - Preliminary Blood No Growth after 24 hours Assessment and Plan (1) Thrombocytopenia Narrative/Plan: This has been fairly chronic, with platelet counts consistently in the safe range, usually 70-80,000. During this admission that dropped into the low 60, 000 range, but today are back up to 78,000 Based on the workup so far, the most likely etiology is chronic liver disease with portal hypertension and splenomegaly. Liver parenchyma was noted to be abnormal on imaging, along with splenomegaly. The pathophysiology was discussed in detail with the patient. He was advised that there is no specific treatment for this condition, other than avoiding further liver and bone marrow damage. he was especially asked to avoid alcohol. He was also advised that his platelet count is actually in a safe range as spontaneous bleeding rarely occurs with platelet counts greater than 10 ,000. With counts > 50,000, there is no contraindication to a surgical interventions, anticoagulation or anti-platelet therapy. Lab work up in the meantime revealed B12 deficiency. The patient will be started on supplementation Current Visit: Yes Status: Acute Code(s): D69.6 - THROMBOCYTOPENIA, UNSPECIFIED SNOMED Code(s): 295328641 (2) Fatty liver disease, nonalcoholic Narrative/Plan: Fatty infiltration is felt to be the most likely etiology of his chronic liver disease. GI is following. Defer to them for continued follow-up and management Current Visit: Yes Status: Acute Code(s): K76.0 - FATTY (CHANGE OF) LIVER, NOT ELSEWHERE CLASSIFIED SNOMED Code(s): 928440176 (3) B12 deficiency Narrative/Plan: The patient has low B12, with etiology somewhat unclear. He denied any gastric or enteral surgery. He will be started on supplementation Current Visit: Yes Status: Acute Code(s): E53.8 - DEFICIENCY OF OTHER SPECIFIED B GROUP VITAMINS SNOMED Code(s): 919391913 (4) Anemia Narrative/Plan: Hemoglobin is in a safe range. So far workup is positive for B12 deficiency as noted. He will be started on supplementation no evidence of iron deficiency. Iron studies are suggestive of anemia of chronic disease Current Visit: Yes Status: Acute Code(s): D64.9 - ANEMIA, UNSPECIFIED SNOMED Code(s): 450369967
[2018-10-23] MEDS: CYANOCOBALAMIN 1,000 MCG/ML 1 ML VIAL IM SCH (19:36)
[2018-10-23] MEDS: FOLIC ACID 1 MG TAB PO SCH (19:36)
[2018-10-23 19:42] LABS: Alpha Fetoprotein, Tumor Mkr <2.5 ng/mL (0.0-7.9)
[2018-10-23 21:03] LABS: Glucose,Whole Blood 109 mg/dL (75-99)
[2018-10-23] MEDS: ATORVASTATIN 20 MG TAB PO SCH (21:18)
[2018-10-24] MEDS: SODIUM CHLORIDE 0.9% 1,000 ML IV SCH (03:28)
[2018-10-24 07:44] LABS: Glucose,Whole Blood 119 mg/dL (75-99)
[2018-10-24] MEDS: INSULIN ASPART 100 UNIT/ML 1 ML 10 ML VIAL SQ SCH ×4 (08:00→21:52)
[2018-10-24] MEDS: CARVEDILOL 12.5 MG TAB PO SCH ×2 (08:00→19:20)
--- NOTE | 2018-10-24 08:13 | P.PN ---
Subjective This is a pleasant 73 years old male with past medical history of heart failure , coronary artery disease, ischemic cardiomyopathy diabetes mellitus, GERD, hyperlipidemia, hypertension, status post cardiac cath with stent placement who presents because of chest pain patient states that 1:00 this morning he woke up feeling cold associated with central chest pain that lasted for 10-15 minutes. Was severe, felt like pressure or squeezing similar to his old heart attack. Does not smoke of shortness of breath. He has some nausea but no vomiting. Has some sweating with chills. In the emergency room he had a temperature of 1 or 3.1 (please refer to emergency room physician not) , however no other fever was charted. No leukocytosis. Creatinine was 0.8. His lactic lactic acid was 2.8. Total bilirubin is 1.4. Patient already got ceftriaxone in the emergency room. He was started on normal saline at 100 L/h. 10/21/18 Patient abdominal pain is improved over 2 days complaining of from left leg pain. He denies abdominal pain but on exam he has some epigastric tenderness. cardiology follow-up is appreciated. his blood culture came back positive with beta hemolytic strep group G. He is already on Zosyn as per ID team recommendation. Patient continue on IV fluids for now. Abdominal ultrasound was noted, no source would explain patient presentation. Patient's BMP was improving. His looping still elevated, rest of liver enzymes were within normal limits. WBC is 3.9 10/22/2018 Patient still complaining from left leg pain and redness, suspicious for cellulitis. Which is improving now. His WBC is 4.6. Patient is afebrile as his fever on admission has subsided last one was on the 10/20/2018 at 102. His antibiotics has been adjusted by ID team to ceftriaxone. Of note patient was having hepatosplenomegaly and thrombocytopenia with elevated bilirubin. We will call hematology and gastroenterology consult. Date of service : 10/23/2018 pt is seen and examined by me at bed side. pt is clinically the same , he still complains from his left leg ,swelling and redness and less. he continue on ceftriaxone , no more fever. hematology input is appreciated , pt is started on Vit B12 and folic acid . his thrombocytopenia, is chronic with transiet drop in count.mostly it is secondary to liver disease and portal hypertension . GI team was consulted as well , mostly pt has fatty liver and further w/u is ongoing . CONSTITUTIONAL: No fever, no malaise, no fatigue. HEENT: No recent visual problems or hearing problems. Denied any sore throat. CARDIOVASCULAR: No orthopnea, PND, no palpitations, no syncope. PULMONARY: No shortness of breath, no cough, no hemoptysis. GASTROINTESTINAL:Normoactive bowel sounds. NEUROLOGICAL: No headaches, no weakness, no numbness. HEMATOLOGICAL: Denies any bleeding or petechiae. GENITOURINARY: Denies any burning micturition, frequency, or urgency. MUSCULOSKELETAL/RHEUMATOLOGICAL: Denies any joint pain, swelling, or any muscle pain. ENDOCRINE: Denies any polyuria or polydipsia. Medications are reviewed in details including dosages. Objective - Vital Signs Vital signs: Vital Signs Temp 97.9 F 10/24/18 00:28 Pulse 62 10/24/18 00:28 Resp 14 10/24/18 00:28 BP 108/48 10/24/18 00:28 Pulse Ox 96 10/24/18 00:28 Intake & Output 10/23/18 10/23/18 10/24/18 06:59 18:59 06:59 Intake Total 400 880 740 Balance 400 880 740 Weight 114.8 kg Intake: IV 400 400 500 Sodium Chloride 0.9% 1, 400 400 500 000 ml @ 50 mls/hr IV . Q20H [facility] Rx#:[id number] Oral 480 240 Other: Voiding Method Toilet # Voids 2 2 - Exam GENERAL: The patient is alert and oriented x3, not in any acute distress. Well developed, well nourished. Obese HEENT: Pupils are round and equally reacting to light. EOMI. No scleral icterus. No conjunctival pallor. Normocephalic, atraumatic. No pharyngeal erythema. No thyromegaly. CARDIOVASCULAR: S1 and S2 present. No murmurs, rubs, or gallops. PULMONARY: Chest is clear to auscultation, no wheezing or crackles. ABDOMEN: Soft, nontender, nondistended, normoactive bowel sounds. No palpable organomegaly. MUSCULOSKELETAL: No joint swelling or deformity. EXTREMITIES: No cyanosis, clubbing, or pedal edema. NEUROLOGICAL: Gross neurological examination did not reveal any focal deficits. SKIN: No rashes. - Labs CBC & Chem 7: 10/23/18 05:52 10/23/18 05:52 Labs: Abnormal Lab Results - Last 24 Hours (Table) 10/21/18 10/23/18 10/23/18 Range/Units 05:46 05:52 05:52 RBC 3.67 L (4.30-5.90) m/uL Hgb 12.2 L (13.0-17.5) gm/dL Hct 35.5 L (39.0-53.0) % Plt Count 78 L (150-450) k/uL Chloride 109 H (98-107) mmol/L Glucose 125 H (74-99) mg/dL POC Glucose (mg/dL) (75-99) mg/dL Delta Bilirubin 0.3 H (0.0-0.2) mg/dL Vitamin B12 89.0 L (200.0-944.0) pg/mL 10/23/18 10/23/18 10/23/18 Range/Units 12:34 17:11 21:00 RBC (4.30-5.90) m/uL Hgb (13.0-17.5) gm/dL Hct (39.0-53.0) % Plt Count (150-450) k/uL Chloride (98-107) mmol/L Glucose (74-99) mg/dL POC Glucose (mg/dL) 117 H 116 H 109 H (75-99) mg/dL Delta Bilirubin (0.0-0.2) mg/dL Vitamin B12 (200.0-944.0) pg/mL Microbiology - Last 24 Hours (Table) 10/21/18 22:44 Blood Culture - Preliminary Blood No Growth after 48 hours Assessment and Plan Assessment: Cellulitis of the left leg, improving. Hepatosplenomegaly with thrombocytopenia fatty liver disease vitamin B12 deficiency anemia of chronic disease Chest pain, cardiac causes were ruled out by cardiology team. High lactic acid, resolved History of ischemic cardiomyopathy History of coronary artery disease, status post stent placement Diabetes mellitus GERD Hyperlipidemia Essential hypertension Plan: This is a pleasant 73 years old male who presents because of chest pain, and fever. Admitted to the general medical floor, continue with aspirin. Call cardiology consult. Infectious team consult. Continue with IV fluids. Antibiotics are per ID team. Labs and medication were reviewed.. Continue same treatment. Continue with symptomatic treatment. Resume home medication. Monitor lytes and vitals. DVT and GI prophylaxis. Further recommendations of the clinical course of the patient DVT prophylaxis: Subcutaneous heparin GI Prophylaxis: Pepcid PT/OT: Pending Prognosis is guarded
[2018-10-24] MEDS: cefTRIAXone 2,000 MG in SODIUM CHLORIDE 0.9% 100 ML IVPB SCH (09:22)
[2018-10-24] MEDS: FAMOTIDINE 20 MG TAB PO SCH ×2 (09:27→21:52)
[2018-10-24] MEDS: ALLOPURINOL 300 MG TAB PO SCH (09:27)
[2018-10-24] MEDS: FOLIC ACID 1 MG TAB PO SCH (09:27)
[2018-10-24] MEDS: HEPARIN SODIUM,PORCINE 5,000 UNIT/ML 1 ML VIAL SQ SCH ×2 (09:27→21:52)
[2018-10-24] MEDS: ISOSORBIDE MONONITRATE ER 30 MG TAB.ER.24H PO SCH (09:27)
[2018-10-24] MEDS: SPIRONOLACTONE 25 MG TAB PO SCH (09:27)
[2018-10-24] MEDS: ASPIRIN 81 MG PO SCH (09:27)
[2018-10-24] MEDS: CYANOCOBALAMIN 1,000 MCG/ML 1 ML VIAL IM SCH (09:28)
[2018-10-24 09:33] VITALS: RESP 16
[2018-10-24 11:19] LABS: Basophils % (A) 0 %; Eosinophils # (A) 0.1 k/uL (0-0.7); Eosinophils % (A) 4 %; HCT 37.2 % (39.0-53.0); HGB 11.7 gm/dL (13.0-17.5); Lymphocytes # (A) 0.9 k/uL (1.0-4.8); Lymphocytes % (A) 31 %; MCH 30.8 pg (25.0-35.0); MCHC 31.6 g/dL (31.0-37.0); MCV 97.7 fL (80.0-100.0); Mean Platelet Volume 7.1; Monocytes # (A) 0.3 k/uL (0-1.0); Monocytes % (A) 9 %; Neutrophils # (A) 1.6 k/uL (1.3-7.7); Neutrophils % (A) 52 %; RDW 14.4 % (11.5-15.5); WBC 3.1 k/uL (3.8-10.6)
[2018-10-24 11:25] LABS: Platelet Count 88 k/uL (150-450)
[2018-10-24 11:32] LABS: ALT 55 U/L (21-72); AST 63 U/L (17-59); Albumin 3.8 g/dL (3.5-5.0); Alkaline Phosphatase 110 U/L (38-126); Anion Gap 8 mmol/L; Bilirubin, Delta 0.4 mg/dL (0.0-0.2); Bilirubin,Unconjugated 0.4 mg/dL (0.0-1.1); Blood Urea Nitrogen 12 mg/dL (9-20); Calcium 9.4 mg/dL (8.4-10.2); Carbon Dioxide 28 mmol/L (22-30); Chloride 108 mmol/L (98-107); Glucose 133 mg/dL (74-99); Potassium 4.9 mmol/L (3.5-5.1); Sodium 144 mmol/L (137-145); Total Bilirubin 0.8 mg/dL (0.2-1.3); Total Protein 6.7 g/dL (6.3-8.2)
[2018-10-24 12:12] LABS: Glucose,Whole Blood 103 mg/dL (75-99)
[2018-10-24] MEDS: FERROUS SULFATE 325 MG TAB PO SCH (12:39)
[2018-10-24 12:51] LABS: Ceruloplasmin 29.4 mg/dL (20.0-60.0)
[2018-10-24] MEDS ORDERED: FUROSEMIDE 10 MG/ML 2 ML VIAL IV ONE (14:54)
[2018-10-24 17:08] LABS: Glucose,Whole Blood 113 mg/dL (75-99)
--- NOTE | 2018-10-24 17:24 | US ---
EXAMINATION TYPE: US venous doppler duplex LE LT DATE OF EXAM: 10/24/2018 4:10 PM COMPARISON: NONE CLINICAL HISTORY: calf pain. SIDE PERFORMED: Left TECHNIQUE: The lower extremity deep venous system is examined utilizing real time linear array sonog ilana with graded compression, doppler sonography and color-flow sonography. VESSELS IMAGED: External Iliac Vein (EIV) Common Femoral Vein Deep Femoral Vein Greater Saphenous Vein * Femoral Vein Popliteal Vein Small Saphenous Vein * Proximal Calf Veins (* superficial vessels) Limited due to pt urgency to void bladder at end of exam. Left Leg: Negative for DVT Area of redness and tenderness on left calf scanned; appears to be edematous tissue vessels in this a emory appear patent. IMPRESSION: There is normal flow, compressibility, vascular waveforms the left lower extremity. Reg ion of concern in the left calf region demonstrates sonographic evidence of subcutaneous edema.
[2018-10-24] MEDS: INSULN ASP PRT/INSULIN ASPART 100 UNIT/ML 10 ML VIAL SQ SCH (18:00)
[2018-10-24 19:52] LABS: Glucose,Whole Blood 154 mg/dL (75-99)
--- NOTE | 2018-10-24 20:21 | P.PN ---
Subjective Progress Note Date: 10/24/18 Principal diagnosis: Chest pain, elevated liver enzymes, hepatosplenomegaly Patient feeling well, tolerating diet. No abdominal pain reported. Objective - Vital Signs Vital signs: Vital Signs Temp 98.2 F 10/24/18 15:00 Pulse 73 10/24/18 16:00 Resp 16 10/24/18 16:00 BP 126/65 10/24/18 15:00 Pulse Ox 99 10/24/18 15:00 Intake & Output 10/24/18 10/24/18 10/25/18 06:59 18:59 06:59 Intake Total 740 440 Output Total 200 Balance 740 240 Weight 115.9 kg 115.9 kg Intake: IV 500 100 Sodium Chloride 0.9% 1, 500 100 000 ml @ 50 mls/hr IV . Q20H BRINDA Rx#:[id number] Intake, IV Titration 100 Amount cefTRIAXone 2,000 mg In 100 Sodium Chloride 0.9% 100 ml @ 100 mls/hr IVPB Q24HR BRINDA Rx#:[id number] Oral 240 240 Output: Urine 200 Other: Voiding Method Toilet Toilet # Voids 2 4 # Bowel Movements 1 - Exam On physical examination, patient appears comfortable in no apparent distress. HEAD: Normocephalic, atraumatic. EYES: No scleral icterus. No conjunctival injection. MOUTH: No lesions, tongue midline. NECK: Trachea midline, no gross abnormalities. CHEST: Clear to auscultation with no wheezing or rhonchi appreciated. HEART: Regular rate and rhythm. ABDOMEN: Soft, obese. Bowel sounds are positive. No organomegaly. No guarding or rigidity. EXTREMITIES: Bilateral pedal edema lower extremities cellulitis improving. SKIN: No rashes, no jaundice. NEUROLOGIC: Alert and oriented x3. No focal deficits. - Labs CBC & Chem 7: 10/24/18 09:33 10/24/18 09:33 Labs: Abnormal Lab Results - Last 24 Hours (Table) 10/23/18 10/24/18 10/24/18 Range/Units 21:00 07:32 09:33 WBC 3.1 L (3.8-10.6) k/uL RBC 3.80 L (4.30-5.90) m/uL Hgb 11.7 L (13.0-17.5) gm/dL Hct 37.2 L (39.0-53.0) % Plt Count 88 L (150-450) k/uL Lymphocytes # 0.9 L (1.0-4.8) k/uL Chloride (98-107) mmol/L Glucose (74-99) mg/dL POC Glucose (mg/dL) 109 H 119 H (75-99) mg/dL Delta Bilirubin (0.0-0.2) mg/dL AST (17-59) U/L 10/24/18 10/24/18 10/24/18 Range/Units 09:33 12:00 16:57 WBC (3.8-10.6) k/uL RBC (4.30-5.90) m/uL Hgb (13.0-17.5) gm/dL Hct (39.0-53.0) % Plt Count (150-450) k/uL Lymphocytes # (1.0-4.8) k/uL Chloride 108 H (98-107) mmol/L Glucose 133 H (74-99) mg/dL POC Glucose (mg/dL) 103 H 113 H (75-99) mg/dL Delta Bilirubin 0.4 H (0.0-0.2) mg/dL AST 63 H (17-59) U/L Microbiology - Last 24 Hours (Table) 10/21/18 22:44 Blood Culture - Preliminary Blood No Growth after 48 hours Assessment and Plan (1) Fatty liver disease, nonalcoholic Narrative/Plan: Serologic workup for intrinsic liver disease has been negative. Underlying etiology likely fatty liver disease, cannot rule out a cardiac component given significant history of coronary artery disease. Liver enzymes improved. Current Visit: Yes Status: Acute Code(s): K76.0 - FATTY (CHANGE OF) LIVER, NOT ELSEWHERE CLASSIFIED SNOMED Code(s): 964359883 (2) Hepatosplenomegaly Current Visit: Yes Status: Acute Code(s): R16.2 - HEPATOMEGALY WITH SPLENOMEGALY, NOT ELSEWHERE CLASSIFIED SNOMED Code(s): 59233192 Plan: Supportive care Okay for diet Monitor liver enzymes Serologic liver workup negative to date, continue to monitor Optimization of cardiac medications Thank you for allowing us to participate in the care of this patient, we will continue to follow
[2018-10-24] MEDS: ATORVASTATIN 20 MG TAB PO SCH (21:52)
[2018-10-24] MEDS: ACETAMINOPHEN TAB 500 MG TAB PO PRN (21:57)
--- NOTE | 2018-10-25 00:15 | P.PN ---
Subjective Progress Note Date: 10/24/18 Pleasant 73-year-old male known to the service from prior care for lower extremity ulceration years ago. Now presents after awakening at 1:00 AM feeling very poorly with discomforts in his chest and chest pressure. He has some shortness of breath also. He was feeling poorly and is a hours went by he noticed that he became very cold and developed chills and what appears to be a brief rigor. By the morning he was feeling so poorly he decided to come to the emergency center without evidence of temperature 103.1 and appear to be acutely ill. The patient's been admitted for sepsis and with this the infectious diseases consultation was requested. This chest x-ray was negative and cardiac workup was negative also at the time of admission. However the patient relates that she sitting upright that he is having some abdominal discomfort. He is not having nausea or emesis relates that he's had some chronic diarrhea over quite some time. It has not changed as of late. He's had no hematemesis melena or hematochezia. He does feel very poorly still at this point in time and believes his abdomen feels worse now than at admission. The records are reviewed he does have a known history of prior diverticulitis as well as nephrolithiasis with infection. 10/21/2018 patient was feeling quite poorly earlier today feeling little better this evening and is up walking in the hallway. He is to begin pain to his left leg this become quite erythematous. The significant abdominal pain has improved. She is able to eat throughout the day without nausea or emesis. He' s had no hematemesis melena or diarrhea September patient is feeling better today. He's been able to ambulate but does still have shortness of breath with exertion. Relates pain to the left leg is slightly improved. Still does not feel back to his baseline. Pain to the right leg is improved. Swelling and discomfort has improved. He is denying further fevers or chills. Appetite is adequate. Family is pleased with his improvement. Objective - Vital Signs Vital signs: Vital Signs Temp 98.9 F 10/24/18 19:59 Pulse 69 10/24/18 19:59 Resp 16 10/24/18 19:59 BP 128/69 10/24/18 19:59 Pulse Ox 98 10/24/18 19:59 Intake & Output 10/24/18 10/24/18 10/25/18 06:59 18:59 06:59 Intake Total 740 440 Output Total 200 Balance 740 240 Weight 115.9 kg 115.9 kg Intake: IV 500 100 Sodium Chloride 0.9% 1, 500 100 000 ml @ 50 mls/hr IV . Q20H [facility] Rx#:[id number] Intake, IV Titration 100 Amount cefTRIAXone 2,000 mg In 100 Sodium Chloride 0.9% 100 ml @ 100 mls/hr IVPB Q24HR [facility] Rx#:[id number] Oral 240 240 Output: Urine 200 Other: Voiding Method Toilet Toilet # Voids 2 4 # Bowel Movements 1 - Exam Pleasant 73-year-old male with obesity who appears to be acutely ill HEENT: Anicteric conjunctiva are pink and moist nasal mucosa grossly intact without significant lesions, there is no thrush. Neck: The neck is supple without significant lymphadenopathy or thyromegaly. Lungs: Good bilateral air entry without significant crackles or wheezing. There is no significant bronchial sounds. There is no egophony or dullness. Heart: Regular rate and rhythm with an audible S1-S2, no S3 no S4. There is no significant murmur click or rub, PMI was nondisplaced. Abdomen: Positive bowel sounds soft and nontender without palpable masses or organomegaly. There was no guarding or rebound. There is improved abdominal tenderness in the right upper quadrant Extremities: The upper extremities have excellent pulses they are symmetric, no significant petechiae or telangiectasia. No splinter hemorrhages were noted. The right lower extremity is without acute abnormality. The left lower extremities reveals improvement of the erythema over the pretibial area overall the tenderness is improving tolerating the wrap well Neuro: Awake alert oriented to person place and time. There are no acute new gross focal sensory motor deficits. - Labs CBC & Chem 7: 10/24/18 09:33 10/24/18 09:33 Labs: Abnormal Lab Results - Last 24 Hours (Table) 10/24/18 10/24/18 10/24/18 Range/Units 07:32 09:33 09:33 WBC 3.1 L (3.8-10.6) k/uL RBC 3.80 L (4.30-5.90) m/uL Hgb 11.7 L (13.0-17.5) gm/dL Hct 37.2 L (39.0-53.0) % Plt Count 88 L (150-450) k/uL Lymphocytes # 0.9 L (1.0-4.8) k/uL Chloride 108 H (98-107) mmol/L Glucose 133 H (74-99) mg/dL POC Glucose (mg/dL) 119 H (75-99) mg/dL Delta Bilirubin 0.4 H (0.0-0.2) mg/dL AST 63 H (17-59) U/L 10/24/18 10/24/18 10/24/18 Range/Units 12:00 16:57 19:50 WBC (3.8-10.6) k/uL RBC (4.30-5.90) m/uL Hgb (13.0-17.5) gm/dL Hct (39.0-53.0) % Plt Count (150-450) k/uL Lymphocytes # (1.0-4.8) k/uL Chloride (98-107) mmol/L Glucose (74-99) mg/dL POC Glucose (mg/dL) 103 H 113 H 154 H (75-99) mg/dL Delta Bilirubin (0.0-0.2) mg/dL AST (17-59) U/L Microbiology - Last 24 Hours (Table) 10/21/18 22:44 Blood Culture - Preliminary Blood No Growth after 48 hours Laboratory Results WBC 3.1 k/uL (3.8-10.6) L 10/24/18 09:33 RBC 3.80 m/uL (4.30-5.90) L 10/24/18 09:33 Hgb 11.7 gm/dL (13.0-17.5) L 10/24/18 09:33 Hct 37.2 % (39.0-53.0) L 10/24/18 09:33 MCV 97.7 fL (80.0-100.0) 10/24/18 09:33 MCH 30.8 pg (25.0-35.0) 10/24/18 09:33 MCHC 31.6 g/dL (31.0-37.0) 10/24/18 09:33 RDW 14.4 % (11.5-15.5) 10/24/18 09:33 Plt Count 88 k/uL (150-450) L 10/24/18 09:33 Neutrophils % 52 % 10/24/18 09:33 Lymphocytes % 31 % 10/24/18 09:33 Monocytes % 9 % 10/24/18 09:33 Eosinophils % 4 % 10/24/18 09:33 Basophils % 0 % 10/24/18 09:33 Neutrophils # 1.6 k/uL (1.3-7.7) 10/24/18 09:33 Lymphocytes # 0.9 k/uL (1.0-4.8) L 10/24/18 09:33 Monocytes # 0.3 k/uL (0-1.0) 10/24/18 09:33 Eosinophils # 0.1 k/uL (0-0.7) 10/24/18 09:33 Basophils # 0.0 k/uL (0-0.2) 10/24/18 09:33 ESR 30 mm/hr (0-15) H 10/22/18 06:24 PT 10.9 sec (9.0-12.0) 10/20/18 07:15 INR 1.1 (<1.2) 10/20/18 07:15 APTT 22.8 sec (22.0-30.0) 10/20/18 07:15 Sodium 144 mmol/L (137-145) 10/24/18 09:33 Potassium 4.9 mmol/L (3.5-5.1) 10/24/18 09:33 Chloride 108 mmol/L (98-107) H 10/24/18 09:33 Carbon Dioxide 28 mmol/L (22-30) 10/24/18 09:33 Anion Gap 8 mmol/L 10/24/18 09:33 BUN 12 mg/dL (9-20) 10/24/18 09:33 Creatinine 0.88 mg/dL (0.66-1.25) 10/24/18 09:33 Est GFR (CKD-EPI)AfAm >90 (>60 ml/min/1.73 sqM) 10/24/18 09:33 Est GFR (CKD-EPI)NonAf 87 (>60 ml/min/1.73 sqM) 10/24/18 09:33 Glucose 133 mg/dL (74-99) H 10/24/18 09:33 POC Glucose (mg/dL) 154 mg/dL (75-99) H 10/24/18 19:50 POC Glu Department Assistant Naomi Cosme 10/24/18 19:[address] Glu mg/dL 117 10/21/18 05:46 Hemoglobin A1c 5.7 % (4.0-6.0) 10/21/18 05:46 Lactic Ac Sepsis Rflx Y 10/20/18 21:16 Plasma Lactic Acid Evgeny 1.9 mmol/L (0.7-2.0) 10/21/18 00:36 Calcium 9.4 mg/dL (8.4-10.2) 10/24/18 09:33 Iron 30 ug/dL (65-175) L 10/21/18 05:46 TIBC 269 ug/dL (228-460) 10/21/18 05:46 Iron Saturation 11.15 (15.00-50.00) L 10/21/18 05:46 Ferritin 232.2 ng/mL (22.0-322.0) 10/21/18 05:46 Total Bilirubin 0.8 mg/dL (0.2-1.3) 10/24/18 09:33 Conjugated Bilirubin 0.0 mg/dL (0.0-0.3) 10/24/18 09:33 Unconjugated Bilirubin 0.4 mg/dL (0.0-1.1) 10/24/18 09:33 Delta Bilirubin 0.4 mg/dL (0.0-0.2) H 10/24/18 09:33 AST 63 U/L (17-59) H 10/24/18 09:33 ALT 55 U/L (21-72) 10/24/18 09:33 Alkaline Phosphatase 110 U/L (38-126) 10/24/18 09:33 Lactate Dehydrogenase 676 U/L (313-618) H 10/22/18 06:24 Total Creatine Kinase 36 U/L (55-170) L 10/20/18 18:35 CK-MB (CK-2) 0.8 ng/mL (0.0-2.4) 10/20/18 18:35 CK-MB (CK-2) Rel Index 2.2 10/20/18 18:35 Troponin I <0.012 ng/mL (0.000-0.034) 10/20/18 18:35 C-Reactive Protein 50.5 mg/L (<10.0) H 10/22/18 06:24 Total Protein 6.7 g/dL (6.3-8.2) 10/24/18 09:33 Albumin 3.8 g/dL (3.5-5.0) 10/24/18 09:33 Ceruloplasmin 29.4 mg/dL (20.0-60.0) 10/23/18 05:52 Triglycerides 176 mg/dL (<150) H 10/21/18 05:46 Cholesterol 95 mg/dL (<200) 10/21/18 05:46 LDL Cholesterol, Calc 30 mg/dL (0-99) 10/21/18 05:46 HDL Cholesterol 30 mg/dL (40-60) L 10/21/18 05:46 Tumor Marker AFP <2.5 ng/mL (0.0-7.9) 10/23/18 05:52 Vitamin B12 89.0 pg/mL (200.0-944.0) L 10/21/18 05:46 Folate 17.6 ng/mL 10/21/18 05:46 Urine Color Yellow 10/20/18 08:20 Urine Appearance Clear (Clear) 10/20/18 08:20 Urine pH 7.0 (5.0-8.0) 10/20/18 08:20 Ur Specific [place] 1.017 (1.001-1.035) 10/20/18 08:20 Urine Protein Trace (Negative) H 10/20/18 08:20 Urine Glucose (UA) Negative (Negative) 10/20/18 08:20 Urine Ketones Negative (Negative) 10/20/18 08:20 Urine Blood Trace (Negative) H 10/20/18 08:20 Urine Nitrite Negative (Negative) 10/20/18 08:20 Urine Bilirubin Negative (Negative) 10/20/18 08:20 Urine Urobilinogen <2.0 mg/dL (<2.0) 10/20/18 08:20 Ur Leukocyte Esterase Negative (Negative) 10/20/18 08:20 Urine RBC 6 /hpf (0-5) H 10/20/18 08:20 Urine WBC 1 /hpf (0-5) 10/20/18 08:20 Urine Mucus Rare /hpf (None) H 10/20/18 08:20 IgG 879.0 mg/dL (700.0-1600.0) 10/22/18 06:24 IgA 217.0 mg/dL (60.0-350.0) 10/22/18 06:24 IgM 90.7 mg/dL (40.0-280.0) 10/22/18 06:24 Rheumatoid Factor 12 IU/mL (0-15) 10/21/18 05:46 HERBIE Screen NEGATIVE (NEGATIVE) 10/21/18 05:46 Free [place] LC, Quant 1.80 mg/dL (0.33-1.94) 10/21/18 05:46 Hepatitis A IgM Ab Non-Reactive (Non-Reactive) 10/20/18 18:35 Hep Bs Antigen Non-Reactive (Non-Reactive) 10/20/18 18:35 Hep B Core IgM Ab Non-Reactive (Non-Reactive) 10/20/18 18:35 Hep C IgG Ab Non-Reactive (Non-Reactive) 10/20/18 18:35 Influenza Type A RNA Not Detected (Not Detectd) 10/20/18 07:35 Influenza Type B (PCR) Not Detected (Not Detectd) 10/20/18 07:35 Microbiology 10/21/18 22:44 Blood Blood Culture - Preliminary No Growth after 48 hours 10/20/18 07:15 Blood Blood Culture Gram Stain - Final 10/20/18 07:15 Blood Blood Culture - Final Beta Hemolytic Strep Group G 10/20/18 08:20 Urine,Catheterized Urine Culture - Final 10/20/18 07:15 Blood Blood Culture - Final Assessment and Plan (1) Sepsis Current Visit: Yes Status: Acute Code(s): A41.9 - SEPSIS, UNSPECIFIED ORGANISM SNOMED Code(s): 30916679 (2) Abdominal pain Narrative/Plan: 73-year-old male with a history of underlying cardiovascular disease presents to Hospital with concerns to pain in his chest as well as abdominal pain high- grade fever chills and rigor. At presentation 103 fever was noted patient did not take his temperature at home. However he did have the chills. The patient appears to be acutely ill and concerns to abdominal sepsis as the etiology of his current illness. With elevated total bilirubin and abdominal ultrasound was requested to evaluate his biliary tract and gallbladder as potential source. The patient does have a history also of diverticulitis and with his obesity abdominal exam is somewhat difficult. If ultrasound is none guiding then may require computed tomography scan of his abdomen. Antibiotic therapy is altered to piperacillin tazobactam for coverage of abdominal sepsis, he has no history of MRSA. Cultures will be monitored imaging studies will further direct therapy. If abdominal pain continues may benefit from a surgical consult. 10/21/2018 patient is feeling considerably better today. Abdominal pain is generally resolved. Is having discomfort in the left lower extremity and a dense area erythema has started. Consequently a bacteremic cellulitis appears to be the etiology of his sepsis at admission. Fortunately he is improving today. We'll continue current antibiotic therapy while cultures remain in process. 10/22/2018 patient has had further improvement. However continues to have pain and swelling to the left foot and lower leg. Fever has improved with no further blood cultures. A group C strep has been isolating consequently antibiotic therapy has been de-escalated to Rocephin daily. When he is ready for discharge to home options would be for antistreptococcal quinolone with either moxifloxacin or levofloxacin to complete a total of 10 days of therapy for his bacteremic streptococcal cellulitis. Continue with local wound care with Silvadene and wrapped the left leg. Elevated rest. Continue with treatment of his underlying medical issues including edema control. 10/24/2018 reveals the patient to be feeling considerably better. Pain swelling and erythema have all improved. He is up and ambulate with less pain and less shortness of breath. Diuretic therapy has definitely helped his shortness of breath. We'll continue with elevation Silvadene wrap and antibiotic therapy. As noted May transition to moxifloxacin or Levaquin at discharge to complete his course of therapy for his streptococcal sepsis from his cellulitis of his limb. Current Visit: Yes Status: Acute Code(s): R10.9 - UNSPECIFIED ABDOMINAL PAIN SNOMED Code(s): 51237233 (3) Fever Current Visit: Yes Status: Acute Code(s): R50.9 - FEVER, UNSPECIFIED SNOMED Code(s): 671721988
[2018-10-25 06:55] LABS: Glucose,Whole Blood 131 mg/dL (75-99)
[2018-10-25 07:43] LABS: Basophils % (A) 1 %; Eosinophils # (A) 0.1 k/uL (0-0.7); Eosinophils % (A) 4 %; HCT 37.2 % (39.0-53.0); HGB 12.6 gm/dL (13.0-17.5); Lymphocytes # (A) 1.2 k/uL (1.0-4.8); Lymphocytes % (A) 33 %; MCH 32.3 pg (25.0-35.0); MCHC 33.8 g/dL (31.0-37.0); MCV 95.4 fL (80.0-100.0); Mean Platelet Volume 6.7; Monocytes # (A) 0.2 k/uL (0-1.0); Monocytes % (A) 6 %; Neutrophils % (A) 54 %; RDW 14.3 % (11.5-15.5); WBC 3.7 k/uL (3.8-10.6)
[2018-10-25 07:54] LABS: Anion Gap 10 mmol/L; Blood Urea Nitrogen 15 mg/dL (9-20); Calcium 9.5 mg/dL (8.4-10.2); Carbon Dioxide 24 mmol/L (22-30); Chloride 106 mmol/L (98-107); Glucose 133 mg/dL (74-99); Potassium 4.5 mmol/L (3.5-5.1); Sodium 140 mmol/L (137-145)
[2018-10-25 07:56] LABS: Platelet Count 91 k/uL (150-450)
[2018-10-25] MEDS: INSULIN ASPART 100 UNIT/ML 1 ML 10 ML VIAL SQ SCH ×4 (08:15→21:45)
[2018-10-25] MEDS: cefTRIAXone 2,000 MG in SODIUM CHLORIDE 0.9% 100 ML IVPB SCH (08:33)
[2018-10-25] MEDS: ASPIRIN 81 MG PO SCH (08:34)
[2018-10-25] MEDS: ISOSORBIDE MONONITRATE ER 30 MG TAB.ER.24H PO SCH (08:34)
[2018-10-25] MEDS: CARVEDILOL 12.5 MG TAB PO SCH ×2 (08:34→18:03)
[2018-10-25] MEDS: FAMOTIDINE 20 MG TAB PO SCH ×2 (08:34→21:44)
[2018-10-25] MEDS: SPIRONOLACTONE 25 MG TAB PO SCH (08:34)
[2018-10-25] MEDS: FOLIC ACID 1 MG TAB PO SCH (08:34)
[2018-10-25] MEDS: CYANOCOBALAMIN 1,000 MCG/ML 1 ML VIAL IM SCH (08:34)
[2018-10-25] MEDS: ALLOPURINOL 300 MG TAB PO SCH (08:34)
[2018-10-25] MEDS: ACETAMINOPHEN TAB 500 MG TAB PO PRN (08:35)
[2018-10-25] MEDS: HEPARIN SODIUM,PORCINE 5,000 UNIT/ML 1 ML VIAL SQ SCH ×2 (09:11→21:45)
[2018-10-25 11:47] LABS: Glucose,Whole Blood 111 mg/dL (75-99)
[2018-10-25] MEDS: FERROUS SULFATE 325 MG TAB PO SCH (12:59)
[2018-10-25 17:14] LABS: Glucose,Whole Blood 122 mg/dL (75-99)
[2018-10-25] MEDS: INSULN ASP PRT/INSULIN ASPART 100 UNIT/ML 10 ML VIAL SQ SCH (18:03)
--- NOTE | 2018-10-25 18:08 | P.PN ---
Subjective Progress Note Date: 10/25/18 Principal diagnosis: Chest pain, elevated liver enzymes, hepatosplenomegaly Patient feeling well, tolerating diet. No abdominal pain reported. Objective - Vital Signs Vital signs: Vital Signs Temp 98.1 F 10/25/18 15:00 Pulse 58 L 10/25/18 15:00 Resp 16 10/25/18 15:00 BP 122/70 10/25/18 15:00 Pulse Ox 98 10/25/18 15:00 Intake & Output 10/24/18 10/25/18 10/25/18 18:59 06:59 18:59 Intake Total 440 800 460 Output Total 200 Balance 240 800 460 Weight 115.9 kg Intake: IV 100 Sodium Chloride 0.9% 1, 100 000 ml @ 50 mls/hr IV . Q20H [facility] Rx#:[id number] Intake, IV Titration 100 100 Amount cefTRIAXone 2,000 mg In 100 100 Sodium Chloride 0.9% 100 ml @ 100 mls/hr IVPB Q24HR [facility]INDA Rx#:[id number] Oral 240 800 360 Output: Urine 200 Other: Voiding Method Toilet Toilet Toilet # Voids 4 3 3 # Bowel Movements 1 1 - Exam On physical examination, patient appears comfortable in no apparent distress. HEAD: Normocephalic, atraumatic. EYES: No scleral icterus. No conjunctival injection. MOUTH: No lesions, tongue midline. NECK: Trachea midline, no gross abnormalities. CHEST: Clear to auscultation with no wheezing or rhonchi appreciated. HEART: Regular rate and rhythm. ABDOMEN: Soft, obese. Bowel sounds are positive. No organomegaly. No guarding or rigidity. EXTREMITIES: Bilateral pedal edema lower extremities cellulitis improving. SKIN: No rashes, no jaundice. NEUROLOGIC: Alert and oriented x3. No focal deficits. - Labs CBC & Chem 7: 10/25/18 07:06 10/25/18 07:06 Labs: Abnormal Lab Results - Last 24 Hours (Table) 10/24/18 10/25/18 10/25/18 Range/Units 19:50 06:43 07:06 WBC 3.7 L (3.8-10.6) k/uL RBC 3.90 L (4.30-5.90) m/uL Hgb 12.6 L (13.0-17.5) gm/dL Hct 37.2 L (39.0-53.0) % Plt Count 91 L (150-450) k/uL Glucose (74-99) mg/dL POC Glucose (mg/dL) 154 H 131 H (75-99) mg/dL 10/25/18 10/25/18 10/25/18 Range/Units 07:06 11:35 17:02 WBC (3.8-10.6) k/uL RBC (4.30-5.90) m/uL Hgb (13.0-17.5) gm/dL Hct (39.0-53.0) % Plt Count (150-450) k/uL Glucose 133 H (74-99) mg/dL POC Glucose (mg/dL) 111 H 122 H (75-99) mg/dL Microbiology - Last 24 Hours (Table) 10/21/18 22:44 Blood Culture - Preliminary Blood No Growth after 72 hours Assessment and Plan (1) Fatty liver disease, nonalcoholic Narrative/Plan: Serologic workup for intrinsic liver disease has been negative. Underlying etiology likely fatty liver disease, cannot rule out a cardiac component given significant history of coronary artery disease. Liver enzymes improved. Current Visit: Yes Status: Acute Code(s): K76.0 - FATTY (CHANGE OF) LIVER, NOT ELSEWHERE CLASSIFIED SNOMED Code(s): 367414804 (2) Hepatosplenomegaly Current Visit: Yes Status: Acute Code(s): R16.2 - HEPATOMEGALY WITH SPLENOMEGALY, NOT ELSEWHERE CLASSIFIED SNOMED Code(s): 43190051 Plan: Supportive care Okay for diet Monitor liver enzymes Serologic liver workup negative to date, continue to monitor Optimization of cardiac medications Thank you for allowing us to participate in the care of this patient, we will sign off, please call us back with any questions or concerns
[2018-10-25 20:29] LABS: Glucose,Whole Blood 139 mg/dL (75-99)
--- NOTE | 2018-10-25 20:43 | PN ---
PROGRESS NOTE DATE OF SERVICE: 10/24/2018. HISTORY: This 73-year-old gentleman with acute cellulitis also had bilateral leg swelling. No chest pain. No palpitations. No fever. Patient complaining of left calf pain. EXAM: Alert and oriented x3. Pulse is 59, blood pressure 126/65, respirations 16, temperature 98.2, pulse ox 98% on room air. HEENT: Normocephalic. NECK: No JVD. CARDIOVASCULAR: S1 and S2 muffled. LUNGS: Breath sounds diminished at the bases. ABDOMEN: Soft, nontender. LEGS: Bilateral leg edema. NERVOUS SYSTEM: No focal deficits. LABS: At this time reviewed. ASSESSMENT: 1. Acute cellulitis of the left leg. 2. Right leg edema. 3. Left calf pain. 4. Hepatosplenomegaly. 5. Thrombocytopenia. 6. Cirrhosis of liver. 7. Fatty liver disease. 8. Vitamin B12 deficiency. 9. Anemia of chronic disease. 10.Chest pain. Cardiac cause ruled out. 11.Mild lactic acidosis. 12.History of coronary artery disease with stent placement. 13.History of diabetes mellitus type 2. 14.Gastroesophageal reflux disease. 15.Hyperlipidemia. 16.Hypertension. RECOMMENDATIONS: Recommend to continue current management and symptomatic treatment. Otherwise at this time I recommend ultrasound of the calf to rule out the possibility of any DVT. Continue the rest of the medications. Guarded prognosis. Further recommendations to follow. MMODL / IJN: [id number] /
--- NOTE | 2018-10-25 20:49 | PN ---
PROGRESS NOTE DATE OF SERVICE: 10/25/2018 This 73-year-old gentleman was admitted with significant cellulitis also had hepatosplenomegaly and possible cirrhosis of the liver. The patient also on IV antibiotics. The patient also complaining of left calf pain. Venous Doppler was done yesterday which showed some subcutaneous edema. No chest pain. No palpitations. No fever. EXAM: Alert and oriented times three. Pulse is 58, blood pressure 120/70, respirations 16, temperature 98.1, pulse ox 98% on room air. HEENT: Conjunctivae normal. NECK: No jugular venous distention. CARDIOVASCULAR: S1, S2 muffled. Respirations: Breath sounds diminished in the bases. No rhonchi. No crackles. Abdomen soft. Legs: Bilateral leg edema. Central nervous system: No focal deficits. LABS: WBC 3.7, hemoglobin 12.6. ASSESSMENT: 1. Cellulitis of the left leg. 2. Hepatosplenomegaly with thrombocytopenia, possible cirrhosis of the liver. 3. Fatty liver disease. 4. Vitamin B12 deficiency. 5. Anemia of chronic disease. 6. Chest pain, cardiac causes ruled out. 7. Elevated lactic acid. 8. Ischemic cardiomyopathy. 9. History of coronary artery disease, stent placement. 10.Diabetes type 2. 11.Gastroesophageal reflux disease. 12.Hyperlipidemia. 13.Hypertension. RECOMMENDATIONS AND DISCUSSION: Recommend to continue current medications, management and symptomatic treatment. Otherwise, at this time, we will monitor the patient closely. Continue with antibiotics. Further recommendations to follow. MMODL / IJN: [id number] /
[2018-10-25] MEDS: ATORVASTATIN 20 MG TAB PO SCH (21:44)
[2018-10-26 07:56] LABS: Glucose,Whole Blood 131 mg/dL (75-99)
[2018-10-26 09:11] LABS: Basophils % (A) 1 %; Eosinophils # (A) 0.1 k/uL (0-0.7); Eosinophils % (A) 3 %; HCT 39.9 % (39.0-53.0); Lymphocytes # (A) 1.1 k/uL (1.0-4.8); Lymphocytes % (A) 25 %; MCH 31.5 pg (25.0-35.0); MCHC 32.6 g/dL (31.0-37.0); MCV 96.6 fL (80.0-100.0); Monocytes # (A) 0.2 k/uL (0-1.0); Monocytes % (A) 5 %; Neutrophils # (A) 2.9 k/uL (1.3-7.7); Neutrophils % (A) 64 %; Platelet Count 122 k/uL (150-450); RBC 4.13 m/uL (4.30-5.90); RDW 14.5 % (11.5-15.5); WBC 4.5 k/uL (3.8-10.6)
[2018-10-26] MEDS: FOLIC ACID 1 MG TAB PO SCH (09:11)
[2018-10-26] MEDS: ASPIRIN 81 MG PO SCH (09:11)
[2018-10-26] MEDS: ISOSORBIDE MONONITRATE ER 30 MG TAB.ER.24H PO SCH (09:11)
[2018-10-26] MEDS: SPIRONOLACTONE 25 MG TAB PO SCH (09:11)
[2018-10-26] MEDS: FAMOTIDINE 20 MG TAB PO SCH ×2 (09:11→22:23)
[2018-10-26] MEDS: ALLOPURINOL 300 MG TAB PO SCH (09:11)
[2018-10-26] MEDS: CARVEDILOL 12.5 MG TAB PO SCH ×2 (09:11→17:18)
[2018-10-26] MEDS: HEPARIN SODIUM,PORCINE 5,000 UNIT/ML 1 ML VIAL SQ SCH ×2 (09:12→22:23)
[2018-10-26] MEDS: INSULIN ASPART 100 UNIT/ML 1 ML 10 ML VIAL SQ SCH ×4 (09:12→22:23)
[2018-10-26 09:25] LABS: Anion Gap 11 mmol/L; Blood Urea Nitrogen 15 mg/dL (9-20); Calcium 9.6 mg/dL (8.4-10.2); Carbon Dioxide 26 mmol/L (22-30); Chloride 105 mmol/L (98-107); Glucose 141 mg/dL (74-99); Potassium 4.6 mmol/L (3.5-5.1); Sodium 142 mmol/L (137-145)
[2018-10-26] MEDS ORDERED: HYDROmorphone 1 MG/ML 1 ML SYRINGE IVP PRN (09:27)
--- NOTE | 2018-10-26 10:41 | XR ---
EXAMINATION TYPE: XR chest 1V portable DATE OF EXAM: 10/26/2018 COMPARISON: 10/20/2018 HISTORY: Chest pain TECHNIQUE: Single frontal view of the chest is obtained. FINDINGS: Postsurgical changes involving the shoulder. Heart size is prominent there subsegmental ch anges at the lung bases. No pneumothorax or interstitial edema. IMPRESSION: Basilar atelectasis or early infiltrate.
[2018-10-26] MEDS: CYANOCOBALAMIN 1,000 MCG/ML 1 ML VIAL IM SCH (10:58)
[2018-10-26] MEDS: cefTRIAXone 2,000 MG in SODIUM CHLORIDE 0.9% 100 ML IVPB SCH (10:58)
[2018-10-26 11:18] LABS: Glucose,Whole Blood 124 mg/dL (75-99)
[2018-10-26] MEDS: FERROUS SULFATE 325 MG TAB PO SCH (14:12)
--- NOTE | 2018-10-26 14:23 | CT ---
EXAMINATION TYPE: CT chest angio for PE DATE OF EXAM: 10/26/2018 COMPARISON: 07/21/2017 HISTORY: Chest pain, PE CT DLP: 601.50 mGycm Automated exposure control for dose reduction was used. CONTRAST: CT Chest for pulmonary embolism performed with without and with IV Contrast, patient injected with 10 0 ml mL of Isovue 370. FINDINGS: LUNGS: The lungs are grossly clear, there is no concerning parenchymal mass or nodule identified. T here is no pleural effusion or pneumothorax seen. The tracheobronchial tree is patent. Linear change s involving the left upper lobe suggestive of atelectasis or scar. Correlate for mild changes of COPD . 5 mm nodule at the left lung base to small to characterize. MEDIASTINUM: There is satisfactory enhancement of the pulmonary artery and its branches, there is no CT evidence for pulmonary embolism. There are no greater than 1 cm hilar or mediastinal lymph nodes. No pericardial effusion is seen. Atherosclerotic change of the aorta. Coronary artery calcificati on. OTHER: Hypertrophic and degenerative change of the vertebral column. IMPRESSION: 1. No CT evidence of pulmonary embolism. 2. There is a 5 mm nodule left lung base too small to characterize not seen with certainty in the stephanie or exam. Recommend a 6 month follow-up CT to assess stability.
[2018-10-26 15:48] LABS: C-ANCA <1:20 Titer (<1:20); P-ANCA <1:20 Titer (<1:20)
[2018-10-26 16:26] LABS: Glucose,Whole Blood 129 mg/dL (75-99)
[2018-10-26] MEDS: INSULN ASP PRT/INSULIN ASPART 100 UNIT/ML 10 ML VIAL SQ SCH (17:20)
--- NOTE | 2018-10-26 20:13 | P.PN ---
Subjective Progress Note Date: 10/26/18 Pleasant 73-year-old male known to the service from prior care for lower extremity ulceration years ago. Now presents after awakening at 1:00 AM feeling very poorly with discomforts in his chest and chest pressure. He has some shortness of breath also. He was feeling poorly and is a hours went by he noticed that he became very cold and developed chills and what appears to be a brief rigor. By the morning he was feeling so poorly he decided to come to the emergency center without evidence of temperature 103.1 and appear to be acutely ill. The patient's been admitted for sepsis and with this the infectious diseases consultation was requested. This chest x-ray was negative and cardiac workup was negative also at the time of admission. However the patient relates that she sitting upright that he is having some abdominal discomfort. He is not having nausea or emesis relates that he's had some chronic diarrhea over quite some time. It has not changed as of late. He's had no hematemesis melena or hematochezia. He does feel very poorly still at this point in time and believes his abdomen feels worse now than at admission. The records are reviewed he does have a known history of prior diverticulitis as well as nephrolithiasis with infection. 10/21/2018 patient was feeling quite poorly earlier today feeling little better this evening and is up walking in the hallway. He is to begin pain to his left leg this become quite erythematous. The significant abdominal pain has improved. She is able to eat throughout the day without nausea or emesis. He' s had no hematemesis melena or diarrhea September patient is feeling better today. He's been able to ambulate but does still have shortness of breath with exertion. Relates pain to the left leg is slightly improved. Still does not feel back to his baseline. Pain to the right leg is improved. Swelling and discomfort has improved. He is denying further fevers or chills. Appetite is adequate. Family is pleased with his improvement. 10/26/2018 patient is having improvement to the pain and swelling of the left lower extremity. Is having no further fevers. Is able to up and ambulate. However developed some significant right sided chest discomfort. Because of its persistence the patient underwent a CT angiogram to ensure there was no pulmonary embolus or other acute pulmonary change. Is now feeling somewhat better. Denies fevers or chills. Leg is definitely improved. Objective - Vital Signs Vital signs: Vital Signs Temp 97.7 F 10/26/18 15:00 Pulse 65 10/26/18 15:00 Resp 16 10/26/18 15:00 BP 120/58 10/26/18 15:00 Pulse Ox 97 10/26/18 15:00 Intake & Output 10/26/18 10/26/18 10/27/18 06:59 18:59 06:59 Intake Total 725 Output Total 200 Balance 525 Weight 113.8 kg Intake: Oral 725 Output: Urine 200 Other: Voiding Method Toilet # Voids 2 3 - Exam Pleasant 73-year-old male with obesity who appears to be acutely ill HEENT: Anicteric conjunctiva are pink and moist nasal mucosa grossly intact without significant lesions, there is no thrush. Neck: The neck is supple without significant lymphadenopathy or thyromegaly. Lungs: Good bilateral air entry without significant crackles or wheezing. There is no significant bronchial sounds. There is no egophony or dullness. Heart: Regular rate and rhythm with an audible S1-S2, no S3 no S4. There is no significant murmur click or rub, PMI was nondisplaced. Abdomen: Positive bowel sounds soft and nontender without palpable masses or organomegaly. There was no guarding or rebound. There is improved abdominal tenderness in the right upper quadrant Extremities: The upper extremities have excellent pulses they are symmetric, no significant petechiae or telangiectasia. No splinter hemorrhages were noted. The right lower extremity is without acute abnormality. The left lower extremities reveals near resolution of the erythema over the pretibial area overall the tenderness is improving tolerating the wrap well Neuro: Awake alert oriented to person place and time. There are no acute new gross focal sensory motor deficits. - Labs CBC & Chem 7: 10/26/18 07:57 10/26/18 07:57 Labs: Abnormal Lab Results - Last 24 Hours (Table) 10/25/18 10/26/18 10/26/18 Range/Units 20:18 07:41 07:57 RBC 4.13 L (4.30-5.90) m/uL Plt Count 122 L (150-450) k/uL D-Dimer (<0.60) mg/L FEU Glucose (74-99) mg/dL POC Glucose (mg/dL) 139 H 131 H (75-99) mg/dL 10/26/18 10/26/18 10/26/18 Range/Units 07:57 07:57 11:07 RBC (4.30-5.90) m/uL Plt Count (150-450) k/uL D-Dimer 1.25 H (<0.60) mg/L FEU Glucose 141 H (74-99) mg/dL POC Glucose (mg/dL) 124 H (75-99) mg/dL 10/26/18 Range/Units 16:15 RBC (4.30-5.90) m/uL Plt Count (150-450) k/uL D-Dimer (<0.60) mg/L FEU Glucose (74-99) mg/dL POC Glucose (mg/dL) 129 H (75-99) mg/dL Microbiology - Last 24 Hours (Table) 10/21/18 22:44 Blood Culture - Preliminary Blood No Growth after 96 hours Laboratory Results WBC 4.5 k/uL (3.8-10.6) 10/26/18 07:57 RBC 4.13 m/uL (4.30-5.90) L 10/26/18 07:57 Hgb 13.0 gm/dL (13.0-17.5) 10/26/18 07:57 Hct 39.9 % (39.0-53.0) 10/26/18 07:57 MCV 96.6 fL (80.0-100.0) 10/26/18 07:57 MCH 31.5 pg (25.0-35.0) 10/26/18 07:57 MCHC 32.6 g/dL (31.0-37.0) 10/26/18 07:57 RDW 14.5 % (11.5-15.5) 10/26/18 07:57 Plt Count 122 k/uL (150-450) L 10/26/18 07:57 Neutrophils % 64 % 10/26/18 07:57 Lymphocytes % 25 % 10/26/18 07:57 Monocytes % 5 % 10/26/18 07:57 Eosinophils % 3 % 10/26/18 07:57 Basophils % 1 % 10/26/18 07:57 Neutrophils # 2.9 k/uL (1.3-7.7) 10/26/18 07:57 Lymphocytes # 1.1 k/uL (1.0-4.8) 10/26/18 07:57 Monocytes # 0.2 k/uL (0-1.0) 10/26/18 07:57 Eosinophils # 0.1 k/uL (0-0.7) 10/26/18 07:57 Basophils # 0.0 k/uL (0-0.2) 10/26/18 07:57 ESR 30 mm/hr (0-15) H 10/22/18 06:24 PT 10.9 sec (9.0-12.0) 10/20/18 07:15 INR 1.1 (<1.2) 10/20/18 07:15 APTT 22.8 sec (22.0-30.0) 10/20/18 07:15 D-Dimer 1.25 mg/L FEU (<0.60) H 10/26/18 07:57 Sodium 142 mmol/L (137-145) 10/26/18 07:57 Potassium 4.6 mmol/L (3.5-5.1) 10/26/18 07:57 Chloride 105 mmol/L (98-107) 10/26/18 07:57 Carbon Dioxide 26 mmol/L (22-30) 10/26/18 07:57 Anion Gap 11 mmol/L 10/26/18 07:57 BUN 15 mg/dL (9-20) 10/26/18 07:57 Creatinine 0.93 mg/dL (0.66-1.25) 10/26/18 07:57 Est GFR (CKD-EPI)AfAm >90 (>60 ml/min/1.73 sqM) 10/26/18 07:57 Est GFR (CKD-EPI)NonAf 83 (>60 ml/min/1.73 sqM) 10/26/18 07:57 Glucose 141 mg/dL (74-99) H 10/26/18 07:57 POC Glucose (mg/dL) 129 mg/dL (75-99) H 10/26/18 16:15 POC Glu Resident Assistant Cna ID Leydi Mustafa 10/26/18 16:[address] Glu mg/dL 117 10/21/18 05:46 Hemoglobin A1c 5.7 % (4.0-6.0) 10/21/18 05:46 Lactic Ac Sepsis Rflx Y 10/20/18 21:16 Plasma Lactic Acid Evgeny 1.9 mmol/L (0.7-2.0) 10/21/18 00:36 Calcium 9.6 mg/dL (8.4-10.2) 10/26/18 07:57 Iron 30 ug/dL (65-175) L 10/21/18 05:46 TIBC 269 ug/dL (228-460) 10/21/18 05:46 Iron Saturation 11.15 (15.00-50.00) L 10/21/18 05:46 Ferritin 232.2 ng/mL (22.0-322.0) 10/21/18 05:46 Total Bilirubin 0.8 mg/dL (0.2-1.3) 10/24/18 09:33 Conjugated Bilirubin 0.0 mg/dL (0.0-0.3) 10/24/18 09:33 Unconjugated Bilirubin 0.4 mg/dL (0.0-1.1) 10/24/18 09:33 Delta Bilirubin 0.4 mg/dL (0.0-0.2) H 10/24/18 09:33 AST 63 U/L (17-59) H 10/24/18 09:33 ALT 55 U/L (21-72) 10/24/18 09:33 Alkaline Phosphatase 110 U/L (38-126) 10/24/18 09:33 Ammonia 15 umol/L (<30) 10/25/18 07:06 Lactate Dehydrogenase 676 U/L (313-618) H 10/22/18 06:24 Total Creatine Kinase 36 U/L (55-170) L 10/20/18 18:35 CK-MB (CK-2) 0.8 ng/mL (0.0-2.4) 10/20/18 18:35 CK-MB (CK-2) Rel Index 2.2 10/20/18 18:35 Troponin I <0.012 ng/mL (0.000-0.034) 10/26/18 19:06 C-Reactive Protein 50.5 mg/L (<10.0) H 10/22/18 06:24 Total Protein 6.7 g/dL (6.3-8.2) 10/24/18 09:33 Albumin 3.8 g/dL (3.5-5.0) 10/24/18 09:33 Lgmid-9-[id number] 171.0 mg/dL (99.0-242.0) 10/23/18 05:52 Ceruloplasmin 29.4 mg/dL (20.0-60.0) 10/23/18 05:52 Triglycerides 176 mg/dL (<150) H 10/21/18 05:46 Cholesterol 95 mg/dL (<200) 10/21/18 05:46 LDL Cholesterol, Calc 30 mg/dL (0-99) 10/21/18 05:46 HDL Cholesterol 30 mg/dL (40-60) L 10/21/18 05:46 Tumor Marker AFP <2.5 ng/mL (0.0-7.9) 10/23/18 05:52 Vitamin B12 89.0 pg/mL (200.0-944.0) L 10/21/18 05:46 Folate 17.6 ng/mL 10/21/18 05:46 Urine Color Yellow 10/20/18 08:20 Urine Appearance Clear (Clear) 10/20/18 08:20 Urine pH 7.0 (5.0-8.0) 10/20/18 08:20 Ur Specific Deal 1.017 (1.001-1.035) 10/20/18 08:20 Urine Protein Trace (Negative) H 10/20/18 08:20 Urine Glucose (UA) Negative (Negative) 10/20/18 08:20 Urine Ketones Negative (Negative) 10/20/18 08:20 Urine Blood Trace (Negative) H 10/20/18 08:20 Urine Nitrite Negative (Negative) 10/20/18 08:20 Urine Bilirubin Negative (Negative) 10/20/18 08:20 Urine Urobilinogen <2.0 mg/dL (<2.0) 10/20/18 08:20 Ur Leukocyte Esterase Negative (Negative) 10/20/18 08:20 Urine RBC 6 /hpf (0-5) H 10/20/18 08:20 Urine WBC 1 /hpf (0-5) 10/20/18 08:20 Urine Mucus Rare /hpf (None) H 10/20/18 08:20 IgG 879.0 mg/dL (700.0-1600.0) 10/22/18 06:24 IgA 217.0 mg/dL (60.0-350.0) 10/22/18 06:24 IgM 90.7 mg/dL (40.0-280.0) 10/22/18 06:24 Rheumatoid Factor 12 IU/mL (0-15) 10/21/18 05:46 HERBIE Screen NEGATIVE (NEGATIVE) 10/21/18 05:46 c-ANCA <1:20 Titer (<1:20) 10/23/18 05:52 p-ANCA <1:20 Titer (<1:20) 10/23/18 05:52 Anti-Smooth Muscle Ab 19 UNITS (<20) 10/23/18 05:52 Free [place] LC, Quant 1.80 mg/dL (0.33-1.94) 10/21/18 05:46 Hepatitis A IgM Ab Non-Reactive (Non-Reactive) 10/20/18 18:35 Hep Bs Antigen Non-Reactive (Non-Reactive) 10/20/18 18:35 Hep B Core IgM Ab Non-Reactive (Non-Reactive) 10/20/18 18:35 Hep C IgG Ab Non-Reactive (Non-Reactive) 10/20/18 18:35 Influenza Type A RNA Not Detected (Not Detectd) 10/20/18 07:35 Influenza Type B (PCR) Not Detected (Not Detectd) 10/20/18 07:35 Microbiology 10/21/18 22:44 Blood Blood Culture - Preliminary No Growth after 96 hours 10/20/18 07:15 Blood Blood Culture Gram Stain - Final 10/20/18 07:15 Blood Blood Culture - Final Beta Hemolytic Strep Group G 10/20/18 08:20 Urine,Catheterized Urine Culture - Final 10/20/18 07:15 Blood Blood Culture - Final Assessment and Plan (1) Sepsis Current Visit: Yes Status: Acute Code(s): A41.9 - SEPSIS, UNSPECIFIED ORGANISM SNOMED Code(s): 50061421 (2) Abdominal pain Narrative/Plan: 73-year-old male with a history of underlying cardiovascular disease presents to Hospital with concerns to pain in his chest as well as abdominal pain high- grade fever chills and rigor. At presentation 103 fever was noted patient did not take his temperature at home. However he did have the chills. The patient appears to be acutely ill and concerns to abdominal sepsis as the etiology of his current illness. With elevated total bilirubin and abdominal ultrasound was requested to evaluate his biliary tract and gallbladder as potential source. The patient does have a history also of diverticulitis and with his obesity abdominal exam is somewhat difficult. If ultrasound is none guiding then may require computed tomography scan of his abdomen. Antibiotic therapy is altered to piperacillin tazobactam for coverage of abdominal sepsis, he has no history of MRSA. Cultures will be monitored imaging studies will further direct therapy. If abdominal pain continues may benefit from a surgical consult. 10/21/2018 patient is feeling considerably better today. Abdominal pain is generally resolved. Is having discomfort in the left lower extremity and a dense area erythema has started. Consequently a bacteremic cellulitis appears to be the etiology of his sepsis at admission. Fortunately he is improving today. We'll continue current antibiotic therapy while cultures remain in process. 10/22/2018 patient has had further improvement. However continues to have pain and swelling to the left foot and lower leg. Fever has improved with no further blood cultures. A group C strep has been isolating consequently antibiotic therapy has been de-escalated to Rocephin daily. When he is ready for discharge to home options would be for antistreptococcal quinolone with either moxifloxacin or levofloxacin to complete a total of 10 days of therapy for his bacteremic streptococcal cellulitis. Continue with local wound care with Silvadene and wrapped the left leg. Elevated rest. Continue with treatment of his underlying medical issues including edema control. 10/24/2018 reveals the patient to be feeling considerably better. Pain swelling and erythema have all improved. He is up and ambulate with less pain and less shortness of breath. Diuretic therapy has definitely helped his shortness of breath. We'll continue with elevation Silvadene wrap and antibiotic therapy. As noted May transition to moxifloxacin or Levaquin at discharge to complete his course of therapy for his streptococcal sepsis from his cellulitis of his limb. 10/26/2018 patient continues to feel somewhat better. However had a bout of some significant right-sided chest discomfort. This is somewhat reproducible on exam with pressure over the sixth and seventh ribs. The left lower extremity has no resolution of the underlying cellulitis. The patient is being readied for discharge to home. CT angiogram was negative for pulmonary embolus or other acute pulmonary issue. As noted Levaquin has been sent to his pharmacy to complete his course of therapy for his streptococcal sepsis. He is to continue with compression to his left lower extremity to prevent further bouts of cellulitis. Current Visit: Yes Status: Acute Code(s): R10.9 - UNSPECIFIED ABDOMINAL PAIN SNOMED Code(s): 03133521 (3) Fever Current Visit: Yes Status: Acute Code(s): R50.9 - FEVER, UNSPECIFIED SNOMED Code(s): 384395420
--- NOTE | 2018-10-26 20:28 | PN ---
PROGRESS NOTE DATE OF SERVICE: 10/26/2018 This 73-year-old gentleman who was admitted with acute cellulitis of the left leg, also having chest pains, which is right-sided, sharp in character. Cardiology was worked up previously and the pain improved. The venous Doppler was negative, but currently the patient is complaining of recurrence of pain today and ultrasound of the calf was showing only some edema. The D-dimer is 1.25 and a chest CTA was done today which showed no evidence of pulmonary embolism. 5 mm nodule in the left lung base. Recommend six-month followup CT. Otherwise, the patient closely monitored. PAST MEDICAL HISTORY: Reviewed. REVIEW OF SYSTEMS: CARDIOVASCULAR: As mentioned earlier. RESPIRATORY: As mentioned earlier. GI: No nausea. : No dysuria. NERVOUS SYSTEM: As mentioned earlier. CURRENT MEDICATIONS: 1. Tylenol 500 mg q.4h p.r.n. 2. Zyloprim 300 mg daily. 3. Aspirin 81 mg. 4. Lipitor 20 mg. 5. Coreg 12.5 mg b.i.d. 6. Rocephin 2 grams daily. 7. Vitamin D2. 8. Pepcid 20 mg b.i.d. 9. Folic acid. 10.Heparin. 11.Dilaudid. 12.NovoLog. 13.NovoLog scale 70/30, 10 units subcu supper. 14.Imdur 30 mg. 15.Nitrostat 0.4 sublingual. 16.Aldactone 25 mg daily. PHYSICAL EXAM: Patient is alert, oriented x3. Pulse 65. Blood pressure 120/79, respiration 16, temperature 97.2, pulse ox 97% on room air. HEENT: Conjunctivae normal. NECK: No jugular venous distention. CARDIOVASCULAR: S1, S2 muffled. RESPIRATORY: Breath sounds diminished in the bases. Bilateral scattered rhonchi and crackles. ABDOMEN: Soft, nontender. LEGS: Left leg cellulitis. NERVOUS SYSTEM: No focal deficits. LAB STUDIES: WBC 4, hemoglobin 13, and a D-dimer is 1.25. ASSESSMENT: 1. Acute cellulitis of the left leg. 2. Left-sided chest pain, possibly musculoskeletal. 3. Right leg edema. 4. Left calf pain. 5. Elevated D-dimer without any evidence of any pulmonary embolism. 6. Left lower lobe lung nodule recommended followup CT in 6 months. 7. Hepatosplenomegaly. 8. Thrombocytopenia. 9. Cirrhosis of liver with fatty liver disease. 10.Vitamin B12 deficiency. 11.Anemia of chronic disease. 12.Chest pain. 13.Mild lactic acidosis, present on admission. 14.History of coronary artery disease, stent placed. 15.History of diabetes mellitus type 2. 16.Gastroesophageal reflux disease. 17.Hypertension. 18.Hyperlipidemia. RECOMMENDATIONS AND DISCUSSION: I recommend to continue current management and symptomatic treatment. Continue with antibiotics. Otherwise, I would also recommend continued monitor with Cardiology. D- dimer is elevated as mentioned earlier, but spiral CT scan did not show any evidence of acute pulmonary embolism. Continue to monitor. Prognosis guarded. Further recommendations to follow. See orders for details. Discussed with the patient. MMODL / IJN: [id number] /
[2018-10-26 20:42] LABS: Glucose,Whole Blood 150 mg/dL (75-99)
[2018-10-26] MEDS: ATORVASTATIN 20 MG TAB PO SCH (22:23)
[2018-10-27 07:04] LABS: Glucose,Whole Blood 128 mg/dL (75-99)
[2018-10-27 07:55] LABS: Basophils % (A) 1 %; Eosinophils # (A) 0.1 k/uL (0-0.7); Eosinophils % (A) 3 %; HCT 39.5 % (39.0-53.0); HGB 13.2 gm/dL (13.0-17.5); Lymphocytes # (A) 1.4 k/uL (1.0-4.8); Lymphocytes % (A) 28 %; MCH 32.3 pg (25.0-35.0); MCHC 33.3 g/dL (31.0-37.0); Mean Platelet Volume 6.8; Monocytes # (A) 0.3 k/uL (0-1.0); Monocytes % (A) 6 %; Neutrophils # (A) 2.9 k/uL (1.3-7.7); Neutrophils % (A) 60 %; Platelet Count 118 k/uL (150-450); RBC 4.08 m/uL (4.30-5.90); RDW 14.2 % (11.5-15.5); WBC 4.8 k/uL (3.8-10.6)
[2018-10-27] MEDS: HEPARIN SODIUM,PORCINE 5,000 UNIT/ML 1 ML VIAL SQ SCH (07:59)
[2018-10-27] MEDS: ISOSORBIDE MONONITRATE ER 30 MG TAB.ER.24H PO SCH (07:59)
[2018-10-27] MEDS: CYANOCOBALAMIN 1,000 MCG/ML 1 ML VIAL IM SCH (07:59)
[2018-10-27] MEDS: ASPIRIN 81 MG PO SCH (08:00)
[2018-10-27] MEDS: CARVEDILOL 12.5 MG TAB PO SCH (08:00)
[2018-10-27] MEDS: FOLIC ACID 1 MG TAB PO SCH (08:00)
[2018-10-27] MEDS: cefTRIAXone 2,000 MG in SODIUM CHLORIDE 0.9% 100 ML IVPB SCH (08:00)
[2018-10-27] MEDS: SPIRONOLACTONE 25 MG TAB PO SCH (08:00)
[2018-10-27] MEDS: FERROUS SULFATE 325 MG TAB PO SCH (08:00)
[2018-10-27] MEDS: FAMOTIDINE 20 MG TAB PO SCH (08:00)
[2018-10-27] MEDS: INSULIN ASPART 100 UNIT/ML 1 ML 10 ML VIAL SQ SCH (08:09)
[2018-10-27 08:12] LABS: Anion Gap 10 mmol/L; Blood Urea Nitrogen 13 mg/dL (9-20); Calcium 9.7 mg/dL (8.4-10.2); Carbon Dioxide 27 mmol/L (22-30); Chloride 105 mmol/L (98-107); Glucose 142 mg/dL (74-99); Potassium 4.9 mmol/L (3.5-5.1); Sodium 142 mmol/L (137-145)
[2018-10-27 12:23] LABS: Glucose,Whole Blood 114 mg/dL (75-99)
[2018-10-27 15:21] VITALS: BP 158/75; PULSE 69; TEMP 98.1
[2018-10-27 16:55] LABS: Protein, Total 6.7 g/dL (6.2-8.2)
--- NOTE | 2018-10-27 17:10 | P.CNPUL ---
History of Present Illness Consult date: 10/27/18 Requesting physician: Crystal Menon Reason for consult: chest pain, other Chief complaint: Acute cellulitis of the left leg, chest pain, 5 mm nodule in the left lung History of present illness: This is a 73-year-old white male patient of Dr. Izaguirre, who initially came in on 10/20/2018 to the emergency department with complaints of chest pain after going to the gym. EMS was called, he received aspirin and nitroglycerin, and was brought to the emergency room for further evaluation. Patient did have some fever and chills, and mild shortness of breath. No cough, no chest congestion. Cardiac workup has been negative. Patient developed pain, redness and swelling of his left leg, he was treated for cellulitis. Patient did have a elevated d-dimer of 1.25, venous Dopplers of bilateral lower extremities were negative for DVTs, chest CTA was obtain and and showed no evidence of pulmonary embolism, a 5 mm nodule in the left lung base, too small to characterize. Patient's medical history includes moderately severe COPD with an FEV1 of 66% of predicted, chronic thrombocytopenia, chronic congestive heart failure, coronary artery disease, ischemic cardiomyopathy, diabetes mellitus, hypertension, previous IL, GERD, hyperlipidemia. Patient is a former smoker, quit greater than 15 years ago. Chest x-ray did not reveal any evidence for acute pulmonary disease. EKG showed normal sinus rhythm with a right bundle branch block and nonspecific ST to T wave changes. Troponins have been negative 3. Plasma lactic acid was elevated on admission at 2.8, which improved to 1.9. US abdomen revealed hepatomegaly and moderate hepatic steatosis, splenomegaly. Patient has been treated with IV Rocephin, clinically improved, swelling in his right leg is improving, patient has been ambulating, and tolerating activity well. Afebrile, on room air, denies any pulmonary complaints, lung sounds are clear to auscultation. We are asked to see the patient in consultation for a 5 mm pulmonary nodule in the left lung base. Review of Systems All systems: negative Constitutional: Denies chills, Denies fever Eyes: denies blurred vision, denies pain Ears, nose, mouth and throat: Denies headache, Denies sore throat Cardiovascular: Reports chest pain, Denies shortness of breath Respiratory: Reports dyspnea, Denies cough Gastrointestinal: Denies abdominal pain, Denies diarrhea, Denies nausea, Denies vomiting Musculoskeletal: Denies myalgias Integumentary: Denies pruritus, Denies rash Neurological: Denies numbness, Denies weakness Psychiatric: Denies anxiety, Denies depression Endocrine: Denies fatigue, Denies weight change Past Medical History Past Medical History: Coronary Artery Disease (CAD), Chest Pain / Angina, Heart Failure, COPD, Diabetes Mellitus, GERD/Reflux, Hyperlipidemia, Hypertension, Myocardial Infarction (IL), Pneumonia, Vascular Disorder Additional Past Medical History / Comment(s): Ischemic cardiomyopathy, nonsustained ventriclar arrhythmia, systolic heart failure, IL x 2 in 2001 and 1994, 06/2018 acute cellulitis 2ndary to local trauma L kneecap, kidney stones which pt believes he passed, gout bilateral feet toes. Last Myocardial Infarction Date:: 2001 History of Any Multi-Drug Resistant Organisms: None Reported Past Surgical History: Heart Catheterization, Heart Catheterization With Stent, Joint Replacement, Orthopedic Surgery Additional Past Surgical History / Comment(s): PCIs with a total of 6 stents per patient, cardiac ablation-AVRNT, EPS, R knee arthroscopy, bilateral total knee replacements with L side done twice, bilateral shoulder rotator cuff surgeries with L side done 3 times, L ankle surgery, bilateral carpal tunnel releases. Past Anesthesia/Blood Transfusion Reactions: No Reported Reaction Date of Last Stent Placement:: 02/10/17 Additional Psychological History / Comment(s): Is , of cardiovascular disease in April still actively dealing with the grief. No experience. No travel. retired. Pet dog in the home. Stopped smoking several years ago Smoking Status: Former smoker - Past Family History Father History Unknown: Yes Additional Family Medical History / Comment(s): Pt does not know his father's history. His parents were . Mother History Unknown: Yes Family Medical History: Cancer Additional Family Medical History / Comment(s): Pt states mother had some form of cancer which she from. Medications and Allergies Home Medications Medication Instructions Recorded Confirmed Type Allopurinol [Zyloprim] 300 mg PO DAILY 06/07/14 10/20/18 History Insulin NPH Hum/Reg Insulin Hm 10 unit SQ AC-SUPPER 06/07/14 10/20/18 History [NovoLIN 70-30 100 UNIT/ML VIAL] Isosorbide Mononitrate [Imdur] 30 mg PO DAILY 06/07/14 10/20/18 History metFORMIN HCL 1,000 mg PO BID 06/07/14 10/20/18 History Ferrous Sulfate [Iron (65 MG 325 mg PO DAILY 03/07/16 10/20/18 History Elemental)] Spironolactone [Aldactone] 25 mg PO DAILY #30 tab 03/09/16 10/20/18 Rx Atorvastatin [Lipitor] 20 mg PO HS 07/21/17 10/20/18 History Carvedilol [Coreg] 12.5 mg PO BID 07/21/17 10/20/18 History Insulin NPH Hum/Reg Insulin Hm 20 unit SQ AC-BRKFST #0 07/29/17 10/20/18 Rx [NovoLIN 70-30 100 UNIT/ML VIAL] Acetaminophen [Tylenol Extra 500 mg PO Q4H PRN 10/20/18 10/20/18 History Strength] Aspirin 325 mg PO DAILY 10/20/18 10/20/18 History Cyanocobalamin [Vitamin B-12 1,000 mcg IM QMONTH #1 vial 10/26/18 Rx Injection] Levofloxacin [Levaquin] 500 mg PO DAILY #8 tab 10/27/18 Rx Allergies Allergy/AdvReac Type Severity Reaction Status Date / Time No Known Allergies Allergy Verified 10/20/18 08:35 Physical Exam Vitals: Vital Signs Temp Pulse Resp BP BP Pulse Ox 10/27/18 15:00 98.1 F 69 16 158/75 94 L 10/27/18 08:36 98 10/27/18 07:21 97.8 F 66 16 162/78 98 10/27/18 00:20 16 10/26/18 23:00 97.7 F 58 L 16 113/55 95 10/26/18 20:15 67 16 10/26/18 19:00 98.6 F 67 16 105/59 96 Intake and Output 10/27/18 10/27/18 10/27/18 06:59 14:59 22:59 Intake Total 700 240 Balance 700 240 Intake: Oral 700 240 Other: # Voids 3 1 GENERAL EXAM: Alert, active, comfortable in no apparent distress. HEAD: Normocephalic/atraumatic. EYES: Normal reaction of pupils, equal size. Conjunctiva pink, sclera white. NOSE: Clear with pink turbinates. THROAT: No erythema or exudates. NECK: No masses, no JVD, no thyroid enlargement, no adenopathy. CHEST: No chest wall deformity. Symmetrical expansion. LUNGS: Equal air entry with no crackles, wheeze, rhonchi or dullness. CVS: Regular rate and rhythm, normal S1 and S2, no gallops, no murmurs, no rubs ABDOMEN: Soft, nontender. No hepatosplenomegaly, normal bowel sounds, no guarding or rigidity. EXTREMITIES: No clubbing, no edema, no cyanosis, 2+ pulses and upper and lower extremities. MUSCULOSKELETAL: Muscle strength and tone normal. SPINE: No scoliosis or deformity SKIN: No rashes, lower extremities are Tommy wrapped CENTRAL NERVOUS SYSTEM: Alert and oriented -3. No focal deficits, tone is normal in all 4 extremities. PSYCHIATRIC: Alert and oriented -3. Appropriate affect. Intact judgment and insight. Results - Laboratory Findings CBC and BMP: 10/27/18 07:05 10/27/18 07:05 PT/INR, D-dimer PT 10.9 sec (9.0-12.0) 10/20/18 07:15 INR 1.1 (<1.2) 10/20/18 07:15 D-Dimer 1.25 mg/L FEU (<0.60) H 10/26/18 07:57 Abnormal lab findings: Abnormal Labs 10/20/18 10/20/18 10/20/18 07:15 07:15 07:15 WBC RBC Hgb Hct Plt Count 78 L Lymphocytes # 0.6 L ESR D-Dimer Chloride Carbon Dioxide Glucose 136 H POC Glucose (mg/dL) Plasma Lactic Acid Evgeny Iron Iron Saturation Total Bilirubin 1.4 H Unconjugated Bilirubin Delta Bilirubin AST Lactate Dehydrogenase Total Creatine Kinase 35 L C-Reactive Protein Total Protein Albumin Triglycerides HDL Cholesterol Vitamin B12 Methylmalonic Acid Urine Protein Urine Blood Urine RBC Urine Mucus 10/20/18 10/20/18 10/20/18 07:15 08:20 12:37 WBC RBC Hgb Hct Plt Count Lymphocytes # ESR D-Dimer Chloride Carbon Dioxide Glucose POC Glucose (mg/dL) Plasma Lactic Acid Evgeny 2.8 H* Iron Iron Saturation Total Bilirubin Unconjugated Bilirubin Delta Bilirubin AST Lactate Dehydrogenase Total Creatine Kinase 30 L C-Reactive Protein Total Protein Albumin Triglycerides HDL Cholesterol Vitamin B12 Methylmalonic Acid Urine Protein Trace H Urine Blood Trace H Urine RBC 6 H Urine Mucus Rare H 10/20/18 10/20/18 10/20/18 12:37 14:07 16:10 WBC RBC Hgb Hct Plt Count Lymphocytes # ESR D-Dimer Chloride Carbon Dioxide Glucose POC Glucose (mg/dL) 112 H Plasma Lactic Acid Evgeny 2.4 H* Iron Iron Saturation Total Bilirubin 1.9 H Unconjugated Bilirubin 1.4 H Delta Bilirubin 0.5 H AST Lactate Dehydrogenase Total Creatine Kinase C-Reactive Protein Total Protein Albumin Triglycerides HDL Cholesterol Vitamin B12 Methylmalonic Acid Urine Protein Urine Blood Urine RBC Urine Mucus 10/20/18 10/20/18 10/20/18 18:35 19:52 20:38 WBC RBC Hgb Hct Plt Count Lymphocytes # ESR D-Dimer Chloride Carbon Dioxide Glucose POC Glucose (mg/dL) 136 H Plasma Lactic Acid Evgeny 2.3 H* Iron Iron Saturation Total Bilirubin Unconjugated Bilirubin Delta Bilirubin AST Lactate Dehydrogenase Total Creatine Kinase 36 L C-Reactive Protein Total Protein Albumin Triglycerides HDL Cholesterol Vitamin B12 Methylmalonic Acid Urine Protein Urine Blood Urine RBC Urine Mucus 10/21/18 10/21/18 10/21/18 05:46 05:46 05:46 WBC RBC 3.61 L Hgb 12.0 L Hct 34.9 L Plt Count 55 L Lymphocytes # 0.6 L ESR D-Dimer Chloride 109 H Carbon Dioxide Glucose 129 H POC Glucose (mg/dL) Plasma Lactic Acid Evgeny Iron Iron Saturation Total Bilirubin 1.7 H Unconjugated Bilirubin Delta Bilirubin 0.6 H AST Lactate Dehydrogenase Total Creatine Kinase C-Reactive Protein Total Protein 5.9 L Albumin 3.2 L Triglycerides 176 H HDL Cholesterol 30 L Vitamin B12 Methylmalonic Acid Urine Protein Urine Blood Urine RBC Urine Mucus 10/21/18 10/21/18 10/21/18 05:46 06:36 11:46 WBC RBC Hgb Hct Plt Count Lymphocytes # ESR D-Dimer Chloride Carbon Dioxide Glucose POC Glucose (mg/dL) 127 H 132 H Plasma Lactic Acid Evgeny Iron 30 L Iron Saturation 11.15 L Total Bilirubin Unconjugated Bilirubin Delta Bilirubin AST Lactate Dehydrogenase Total Creatine Kinase C-Reactive Protein Total Protein Albumin Triglycerides HDL Cholesterol Vitamin B12 89.0 L Methylmalonic Acid Urine Protein Urine Blood Urine RBC Urine Mucus 10/21/18 10/21/18 10/22/18 16:46 20:31 06:02 WBC RBC Hgb Hct Plt Count Lymphocytes # ESR D-Dimer Chloride Carbon Dioxide Glucose POC Glucose (mg/dL) 121 H 123 H 121 H Plasma Lactic Acid Evgeny Iron Iron Saturation Total Bilirubin Unconjugated Bilirubin Delta Bilirubin AST Lactate Dehydrogenase Total Creatine Kinase C-Reactive Protein Total Protein Albumin Triglycerides HDL Cholesterol Vitamin B12 Methylmalonic Acid Urine Protein Urine Blood Urine RBC Urine Mucus 10/22/18 10/22/18 10/22/18 06:24 06:24 06:24 WBC RBC 3.85 L Hgb 12.5 L Hct 37.2 L Plt Count 61 L Lymphocytes # 0.8 L ESR 30 H D-Dimer Chloride 110 H Carbon Dioxide 21 L Glucose 122 H POC Glucose (mg/dL) Plasma Lactic Acid Evgeny Iron Iron Saturation Total Bilirubin 1.6 H Unconjugated Bilirubin Delta Bilirubin 0.6 H AST Lactate Dehydrogenase Total Creatine Kinase C-Reactive Protein Total Protein Albumin Triglycerides HDL Cholesterol Vitamin B12 Methylmalonic Acid Urine Protein Urine Blood Urine RBC Urine Mucus 10/22/18 10/22/18 10/22/18 06:24 11:25 16:15 WBC RBC Hgb Hct Plt Count Lymphocytes # ESR D-Dimer Chloride Carbon Dioxide Glucose POC Glucose (mg/dL) 120 H 112 H Plasma Lactic Acid Evgeny Iron Iron Saturation Total Bilirubin Unconjugated Bilirubin Delta Bilirubin AST Lactate Dehydrogenase 676 H Total Creatine Kinase C-Reactive Protein 50.5 H Total Protein Albumin Triglycerides HDL Cholesterol Vitamin B12 Methylmalonic Acid Urine Protein Urine Blood Urine RBC Urine Mucus 10/22/18 10/23/18 10/23/18 21:07 05:51 05:52 WBC RBC Hgb Hct Plt Count Lymphocytes # ESR D-Dimer Chloride Carbon Dioxide Glucose POC Glucose (mg/dL) 146 H 119 H Plasma Lactic Acid Evgeny Iron Iron Saturation Total Bilirubin Unconjugated Bilirubin Delta Bilirubin AST Lactate Dehydrogenase Total Creatine Kinase C-Reactive Protein Total Protein Albumin Triglycerides HDL Cholesterol Vitamin B12 Methylmalonic Acid 4.59 H Urine Protein Urine Blood Urine RBC Urine Mucus 10/23/18 10/23/18 10/23/18 05:52 05:52 12:34 WBC RBC 3.67 L Hgb 12.2 L Hct 35.5 L Plt Count 78 L Lymphocytes # ESR D-Dimer Chloride 109 H Carbon Dioxide Glucose 125 H POC Glucose (mg/dL) 117 H Plasma Lactic Acid Evgeny Iron Iron Saturation Total Bilirubin Unconjugated Bilirubin Delta Bilirubin 0.3 H AST Lactate Dehydrogenase Total Creatine Kinase C-Reactive Protein Total Protein Albumin Triglycerides HDL Cholesterol Vitamin B12 Methylmalonic Acid Urine Protein Urine Blood Urine RBC Urine Mucus 10/23/18 10/23/18 10/24/18 17:11 21:00 07:32 WBC RBC Hgb Hct Plt Count Lymphocytes # ESR D-Dimer Chloride Carbon Dioxide Glucose POC Glucose (mg/dL) 116 H 109 H 119 H Plasma Lactic Acid Evgeny Iron Iron Saturation Total Bilirubin Unconjugated Bilirubin Delta Bilirubin AST Lactate Dehydrogenase Total Creatine Kinase C-Reactive Protein Total Protein Albumin Triglycerides HDL Cholesterol Vitamin B12 Methylmalonic Acid Urine Protein Urine Blood Urine RBC Urine Mucus 10/24/18 10/24/18 10/24/18 09:33 09:33 12:00 WBC 3.1 L RBC 3.80 L Hgb 11.7 L Hct 37.2 L Plt Count 88 L Lymphocytes # 0.9 L ESR D-Dimer Chloride 108 H Carbon Dioxide Glucose 133 H POC Glucose (mg/dL) 103 H Plasma Lactic Acid Evgeny Iron Iron Saturation Total Bilirubin Unconjugated Bilirubin Delta Bilirubin 0.4 H AST 63 H Lactate Dehydrogenase Total Creatine Kinase C-Reactive Protein Total Protein Albumin Triglycerides HDL Cholesterol Vitamin B12 Methylmalonic Acid Urine Protein Urine Blood Urine RBC Urine Mucus 10/24/18 10/24/18 10/25/18 16:57 19:50 06:43 WBC RBC Hgb Hct Plt Count Lymphocytes # ESR D-Dimer Chloride Carbon Dioxide Glucose POC Glucose (mg/dL) 113 H 154 H 131 H Plasma Lactic Acid Evgeny Iron Iron Saturation Total Bilirubin Unconjugated Bilirubin Delta Bilirubin AST Lactate Dehydrogenase Total Creatine Kinase C-Reactive Protein Total Protein Albumin Triglycerides HDL Cholesterol Vitamin B12 Methylmalonic Acid Urine Protein Urine Blood Urine RBC Urine Mucus 10/25/18 10/25/18 10/25/18 07:06 07:06 11:35 WBC 3.7 L RBC 3.90 L Hgb 12.6 L Hct 37.2 L Plt Count 91 L Lymphocytes # ESR D-Dimer Chloride Carbon Dioxide Glucose 133 H POC Glucose (mg/dL) 111 H Plasma Lactic Acid Evgeny Iron Iron Saturation Total Bilirubin Unconjugated Bilirubin Delta Bilirubin AST Lactate Dehydrogenase Total Creatine Kinase C-Reactive Protein Total Protein Albumin Triglycerides HDL Cholesterol Vitamin B12 Methylmalonic Acid Urine Protein Urine Blood Urine RBC Urine Mucus 10/25/18 10/25/18 10/26/18 17:02 20:18 07:41 WBC RBC Hgb Hct Plt Count Lymphocytes # ESR D-Dimer Chloride Carbon Dioxide Glucose POC Glucose (mg/dL) 122 H 139 H 131 H Plasma Lactic Acid Evgeny Iron Iron Saturation Total Bilirubin Unconjugated Bilirubin Delta Bilirubin AST Lactate Dehydrogenase Total Creatine Kinase C-Reactive Protein Total Protein Albumin Triglycerides HDL Cholesterol Vitamin B12 Methylmalonic Acid Urine Protein Urine Blood Urine RBC Urine Mucus 10/26/18 10/26/18 10/26/18 07:57 07:57 07:57 WBC RBC 4.13 L Hgb Hct Plt Count 122 L Lymphocytes # ESR D-Dimer 1.25 H Chloride Carbon Dioxide Glucose 141 H POC Glucose (mg/dL) Plasma Lactic Acid Evgeny Iron Iron Saturation Total Bilirubin Unconjugated Bilirubin Delta Bilirubin AST Lactate Dehydrogenase Total Creatine Kinase C-Reactive Protein Total Protein Albumin Triglycerides HDL Cholesterol Vitamin B12 Methylmalonic Acid Urine Protein Urine Blood Urine RBC Urine Mucus 10/26/18 10/26/18 10/26/18 11:07 16:15 20:40 WBC RBC Hgb Hct Plt Count Lymphocytes # ESR D-Dimer Chloride Carbon Dioxide Glucose POC Glucose (mg/dL) 124 H 129 H 150 H Plasma Lactic Acid Evgeny Iron Iron Saturation Total Bilirubin Unconjugated Bilirubin Delta Bilirubin AST Lactate Dehydrogenase Total Creatine Kinase C-Reactive Protein Total Protein Albumin Triglycerides HDL Cholesterol Vitamin B12 Methylmalonic Acid Urine Protein Urine Blood Urine RBC Urine Mucus 10/27/18 10/27/18 10/27/18 06:52 07:05 07:05 WBC RBC 4.08 L Hgb Hct Plt Count 118 L Lymphocytes # ESR D-Dimer Chloride Carbon Dioxide Glucose 142 H POC Glucose (mg/dL) 128 H Plasma Lactic Acid Evgeny Iron Iron Saturation Total Bilirubin Unconjugated Bilirubin Delta Bilirubin AST Lactate Dehydrogenase Total Creatine Kinase C-Reactive Protein Total Protein Albumin Triglycerides HDL Cholesterol Vitamin B12 Methylmalonic Acid Urine Protein Urine Blood Urine RBC Urine Mucus 10/27/18 12:11 WBC RBC Hgb Hct Plt Count Lymphocytes # ESR D-Dimer Chloride Carbon Dioxide Glucose POC Glucose (mg/dL) 114 H Plasma Lactic Acid Evgeny Iron Iron Saturation Total Bilirubin Unconjugated Bilirubin Delta Bilirubin AST Lactate Dehydrogenase Total Creatine Kinase C-Reactive Protein Total Protein Albumin Triglycerides HDL Cholesterol Vitamin B12 Methylmalonic Acid Urine Protein Urine Blood Urine RBC Urine Mucus - Diagnostic Findings Chest x-ray: report reviewed, image reviewed CT scan - chest: report reviewed, image reviewed Additional studies: KJ reviewed, 2-D echocardiogram has been reviewed, abdominal x-ray, venous Doppler studies reviewed Assessment and Plan Plan: Assessment: #1. Nonspecific 5 mm nodule in the left lung base, too small to characterize, we'll need outpatient follow-up #2. Acute cellulitis of the left leg #3. Mild lactic acidosis on admission related to the cellulitis, improved #4. Left-sided chest pain, possibly musculoskeletal, cardiac workup has been negative #5. Left calf pain, venous Dopplers were negative for any evidence of DVT #6. Elevated d-dimer, CT angios chest was negative for any evidence of PE #7. Chronic thrombocytopenia #8. Ischemic cardiomyopathy with EF of 45-50% #9. Coronary artery disease with history of previous stenting #10. Cirrhosis of the liver, and fatty liver disease #11. Hepatosplenomegaly #12. Diabetes mellitus type 2 #13. Moderately severe COPD with FEV1 of 66% of predicted, stable #14. Hypertension, hyperlipidemia Plan: Chest x-ray, and CT angios of the chest were reviewed by Dr. Gallego, he denies any pulmonary complaints, COPD stable. The nodule in the left lung base need outpatient follow-up. He sees Dr. Gallego in the pulmonary clinic, set up an appointment follow-up in 7-10 days. Patient is cellulitis has improved, clinically patient is stable, he has been cleared for discharge home. We'll see on an outpatient basis. I performed a history & physical examination of the patient and discussed their management with my nurse practitioner, Mariluz Vyas. I reviewed the nurse practitioner's note and agree with the documented findings and plan of care. Lung sounds are clear. The findings and the impression was discussed with the patient. I attest to the documentation by the nurse practitioner. Time with Patient: Greater than 30
--- NOTE | 2018-10-28 09:00 | DS ---
DISCHARGE SUMMARY FINAL DIAGNOSES: 1. Acute cellulitis left leg, improved. 2. Left-sided chest pain possibly musculoskeletal, improved. 3. Beta hemolytic strep group G sepsis present on admission. 4. Right leg edema. 5. Left calf pain, improved. 6. Elevated D-dimer with no evidence of pulmonary embolus. 7. Left lower lung nodule recommend followup CT scan in 6 months. 8. Hepatosplenomegaly. 9. Thrombocytopenia. 10.Cirrhosis of liver with fatty liver disease. 11.Vitamin B12 deficiency. 12.Anemia of chronic disease. 13.Chest pain. 14.Mild lactic acidosis present on admission. 15.Coronary artery disease, stent placement. 16.History of diabetes mellitus type 2. 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 18.Hypertension. 19.Hyperlipidemia. DISCHARGE DISPOSITION: Patient will be discharged in stable condition with guarded prognosis. HISTORY OF PRESENT ILLNESS: This 73-year-old gentleman with past medical history of multiple medical problems admitted with cellulitis, left leg and chest pain. Treated with IV antibiotics, symptomatic treatment. Patient improved significantly. Seen by multiple consultants. On exam, vital signs are stable. Cardiovascular: S1, S2. Abdomen soft. Central nervous system: No focal deficits. CTA was negative. Cardiac workup also negative. Recommend close outpatient follow up. DISCHARGE ADVICE AND MEDICATIONS: 1. Discharge diet cardiac diet. 2. Activity limited until followup. 3. Follow up with Dr. Alayna Izaguirre in 2-3 days. 4. Follow up with Dr. Varghese as recommended. MEDICATIONS ARE: 1. Tylenol p.r.n. 2. Zyloprim 300 mg daily. 3. Aspirin 320 mg p.o. daily. 4. Lipitor 20 mg q.h.s. 5. Coreg 12.5 mg p.o. b.i.d. 6. Iron 320 mg p.o. daily. 7. Novolin 70/30 10 units a.c. supper. 8. Imdur 30 mg. 9. Metformin 1000 mg p.o. b.i.d. 10.Vitamin B12 1 mg monthly. 11.Novolin 70/30 20 units subcu before breakfast. 12.Levaquin 500 mg daily for 8 days. 13.Aldactone 25 mg p.o. daily. MMODL / IJN: [id number] /
[2018-10-28 13:59] LABS: Albumin 3.77 g/dL (3.80-4.90); Gamma Globulin 0.95 g/dL (0.70-1.50)
== END 2018-10-27 15:30 | disposition home or self-care (01) | DRG 872 ==
LOC: EC 07:02 → 3SCARD 09:02 → OBSVTOIN 10-21 12:44 → 4SSUR 10-23 20:47
PROVIDERS: ADMIT Internal Medicine; ATTEND Internal Medicine
DX: A40.8 Other streptococcal sepsis (principal); I50.22 Chronic systolic (congestive) heart failure; K76.6 Portal hypertension; L03.116 Cellulitis of left lower limb; D51.9 Vitamin B12 deficiency anemia, unspecified; D63.8 Anemia in other chronic diseases classified elsewhere; D69.6 Thrombocytopenia, unspecified; I11.0 Hypertensive heart disease with heart failure; E11.9 Type 2 diabetes mellitus without complications; R07.89 Other chest pain; I25.5 Ischemic cardiomyopathy; J44.9 Chronic obstructive pulmonary disease, unspecified; R16.2 Hepatomegaly with splenomegaly, not elsewhere classified; K74.60 Unspecified cirrhosis of liver; E78.5 Hyperlipidemia, unspecified; R10.9 Unspecified abdominal pain; I25.10 Atherosclerotic heart disease of native coronary artery without angina pectoris; I25.2 Old myocardial infarction; I45.10 Unspecified right bundle-branch block; K21.9 Gastro-esophageal reflux disease without esophagitis; K76.0 Fatty (change of) liver, not elsewhere classified; R79.1 Abnormal coagulation profile; E66.9 Obesity, unspecified; M10.9 Gout, unspecified; R91.1 Solitary pulmonary nodule; K57.90 Diverticulosis of intestine, part unspecified, without perforation or abscess without bleeding; Z79.4 Long term (current) use of insulin; Z79.82 Long term (current) use of aspirin; Z79.899 Other long term (current) drug therapy; Z87.442 Personal history of urinary calculi; Z96.653 Presence of artificial knee joint, bilateral; Z95.5 Presence of coronary angioplasty implant and graft; Z87.891 Personal history of nicotine dependence; Z98.42 Cataract extraction status, left eye; Z98.41 Cataract extraction status, right eye; Z96.1 Presence of intraocular lens; Z87.01 Personal history of pneumonia (recurrent); Z68.37 Body mass index [BMI] 37.0-37.9, adult
CPT/HCPCS: 36415; 71045; 71046; 71275; 74019; 76700; 76857; 80048; 80053; 80061; 80074; 80076; 81001; 82103; 82105; 82140; 82390; 82550; 82553; 82607; 82728; 82746; 82784; 83036; 83516; 83540; 83550; 83605; 83615; 83883; 83921; 84165; 84484; 85025; 85379; 85610; 85652; 85730; 86038; 86140; 86255; 86334; 86431; 87040; 87077; 87086; 87186; 87502; 93005; 93306; 94760; 96365; 96366; 99285

== ENCOUNTER 2018-12-08 12:04 | Inpatient (IN) | payer MEDICARE ==
[2018-12-08] MEDS ORDERED: IBUPROFEN 600 MG TAB PO STA (12:33)
[2018-12-08] MEDS ORDERED: ACETAMINOPHEN TAB 500 MG TAB PO STA (12:33)
--- NOTE | 2018-12-08 12:38 | ED ---
General Adult HPI - General Chief complaint: Weakness Stated complaint: poss DVT Time Seen by Provider: 12/08/18 12:10 Source: patient, EMS, RN notes reviewed Mode of arrival: EMS Limitations: physical limitation - History of Present Illness Initial comments: This is a 73-year-old male who presents emergency Department with a recent past medical history significant for leg cellulitis. Patient states today after he took a shower his legs both were very painful and he states that lasted about an hour. Patient came in the emergency department because of his leg pain. Patient also noted that he had a cough lately was short of breath. Patient states he had some chills but did not take his temperature. Patient denies any current chest pain but states earlier he had a bout of chest pain lasted a few minutes. Patient denies abdominal pain patient denies nausea vomiting diarrhea. Patient denies any lightheadedness or dizziness. Patient denies any numbness or weakness. Patient denies any dysuria hematuria urinary frequency. Patient denies any area of erythema on his skin. - Related Data Home Medications Medication Instructions Recorded Confirmed Allopurinol [Zyloprim] 300 mg PO DAILY 06/07/14 12/08/18 Insulin NPH Hum/Reg Insulin Hm 10 unit SQ AC-SUPPER 06/07/14 12/08/18 [NovoLIN 70-30 100 UNIT/ML VIAL] Isosorbide Mononitrate [Imdur] 30 mg PO DAILY 06/07/14 12/08/18 metFORMIN HCL 1,000 mg PO BID 06/07/14 12/08/18 Ferrous Sulfate [Iron (65 MG 325 mg PO DAILY 03/07/16 12/08/18 Elemental)] Atorvastatin [Lipitor] 20 mg PO HS 07/21/17 12/08/18 Carvedilol [Coreg] 12.5 mg PO BID 07/21/17 12/08/18 Aspirin 325 mg PO DAILY 10/20/18 12/08/18 Previous Rx's Medication Instructions Recorded Spironolactone [Aldactone] 25 mg PO DAILY #30 tab 03/09/16 Insulin NPH Hum/Reg Insulin Hm 20 unit SQ AC-BRKFST #0 07/29/17 [NovoLIN 70-30 100 UNIT/ML VIAL] Allergies Allergy/AdvReac Type Severity Reaction Status Date / Time No Known Allergies Allergy Verified 12/08/18 13:42 Review of Systems ROS Statement: Those systems with pertinent positive or pertinent negative responses have been documented in the HPI. ROS Other: All systems not noted in ROS Statement are negative. Past Medical History Past Medical History: Coronary Artery Disease (CAD), Chest Pain / Angina, Heart Failure, COPD, Diabetes Mellitus, GERD/Reflux, Hyperlipidemia, Hypertension, Myocardial Infarction ([place]), Pneumonia, Vascular Disorder Additional Past Medical History / Comment(s): Ischemic cardiomyopathy, nonsustained ventriclar arrhythmia, systolic heart failure, [place] x 2 in 2001 and 1994, 06/2018 acute cellulitis 2ndary to local trauma L kneecap, kidney stones which pt believes he passed, gout bilateral feet toes. Last Myocardial Infarction Date:: 2001 History of Any Multi-Drug Resistant Organisms: None Reported Past Surgical History: Heart Catheterization, Heart Catheterization With Stent, Joint Replacement, Orthopedic Surgery Additional Past Surgical History / Comment(s): PCIs with a total of 6 stents per patient, cardiac ablation-AVRNT, EPS, R knee arthroscopy, bilateral total knee replacements with L side done twice, bilateral shoulder rotator cuff surgeries with L side done 3 times, L ankle surgery, bilateral carpal tunnel releases. Past Anesthesia/Blood Transfusion Reactions: No Reported Reaction Date of Last Stent Placement:: 02/10/17 Past Psychological History: No Psychological Hx Reported Smoking Status: Former smoker Past Alcohol Use History: None Reported Past Drug Use History: None Reported - Past Family History Father History Unknown: Yes Additional Family Medical History / Comment(s): Pt does not know his father's history. His parents were . Mother History Unknown: Yes Family Medical History: Cancer Additional Family Medical History / Comment(s): Pt states mother had some form of cancer which she from. General Exam - General Exam Comments Initial Comments: GENERAL: Patient is well-developed and well-nourished. Patient is nontoxic and well- hydrated and is in mild distress. Patient's temperature orally was 101.5. ENT: Neck is soft and supple. No significant lymphadenopathy is noted. Oropharynx is clear. Moist mucous membranes. Neck has full range of motion without eliciting any pain. EYES: The sclera were anicteric and conjunctiva were pink and moist. Extraocular movements were intact and pupils were equal round and reactive to light. Eyelids were unremarkable. PULMONARY: Unlabored respirations. Good breath sounds bilaterally. No audible rales rhonchi or wheezing was noted. CARDIOVASCULAR: There is a regular rate and rhythm without any murmurs gallops or rubs. ABDOMEN: Soft and nontender with normal bowel sounds. No palpable organomegaly was noted. There is no palpable pulsatile mass. SKIN: Skin is clear with no lesions or rashes and otherwise unremarkable. NEUROLOGIC: Patient is alert and oriented x3. Cranial nerves II through XII are grossly intact. Motor and sensory are also intact. Normal speech, volume and content. Symmetrical smile. MUSCULOSKELETAL: Normal extremities with adequate strength and full range of motion. No lower extremity swelling or edema. No calf tenderness. LYMPHATICS: No significant lymphadenopathy is noted PSYCHIATRIC: Normal psychiatric evaluation. Limitations: physical limitation Course Vital Signs 12/08/18 12/08/18 12/08/18 12:11 12:30 13:00 Temperature 100.7 F H Pulse Rate 87 83 81 Respiratory 18 18 19 Rate Blood Pressure 121/65 121/65 142/72 O2 Sat by Pulse 98 98 96 Oximetry 12/08/18 12/08/18 12/08/18 13:30 14:00 14:30 Temperature Pulse Rate 76 80 77 Respiratory 17 18 19 Rate Blood Pressure 133/76 148/69 115/78 O2 Sat by Pulse 97 97 98 Oximetry 12/08/18 14:57 Temperature 99.8 F H Pulse Rate Respiratory Rate Blood Pressure O2 Sat by Pulse Oximetry Medical Decision Making - Medical Decision Making EKG shows sinus rhythm with occasional PAC at a rate of 83 bpm TN interval 172 QRS is 120 QT intervals 412 QTC is 484. Patient has a right bundle branch block. Chest x-ray shows a new infiltrate. I started the patient on Zosyn. I spoke with some physicians and admitted the patient. - Lab Data Result diagrams: 12/08/18 12:52 12/08/18 12:52 Lab Results 12/08/18 12/08/18 12/08/18 Range/Units 12:52 12:52 12:52 WBC 8.2 (3.8-10.6) k/uL RBC 4.40 (4.30-5.90) m/uL Hgb 13.7 (13.0-17.5) gm/dL Hct 42.4 (39.0-53.0) % MCV 96.4 (80.0-100.0) fL MCH 31.1 (25.0-35.0) pg MCHC 32.3 (31.0-37.0) g/dL RDW 14.5 (11.5-15.5) % Plt Count 86 L (150-450) k/uL Neutrophils % 85 % Lymphocytes % 8 % Monocytes % 5 % Eosinophils % 1 % Basophils % 0 % Neutrophils # 7.0 (1.3-7.7) k/uL Lymphocytes # 0.7 L (1.0-4.8) k/uL Monocytes # 0.4 (0-1.0) k/uL Eosinophils # 0.1 (0-0.7) k/uL Basophils # 0.0 (0-0.2) k/uL Manual Slide Review Performed PT (9.0-12.0) sec INR (<1.2) APTT (22.0-30.0) sec Sodium 140 (137-145) mmol/L Potassium 4.3 (3.5-5.1) mmol/L Chloride 107 (98-107) mmol/L Carbon Dioxide 21 L (22-30) mmol/L Anion Gap 12 mmol/L BUN 15 (9-20) mg/dL Creatinine 0.70 (0.66-1.25) mg/dL Est GFR (CKD-EPI)AfAm >90 (>60 ml/min/1.73 sqM) Est GFR (CKD-EPI)NonAf >90 (>60 ml/min/1.73 sqM) Glucose 119 H (74-99) mg/dL Plasma Lactic Acid Evgeny 3.4 H* (0.7-2.0) mmol/L Calcium 9.6 (8.4-10.2) mg/dL Total Bilirubin 2.0 H (0.2-1.3) mg/dL AST 38 (17-59) U/L ALT 42 (21-72) U/L Alkaline Phosphatase 73 (38-126) U/L Troponin I (0.000-0.034) ng/mL Total Protein 7.4 (6.3-8.2) g/dL Albumin 4.4 (3.5-5.0) g/dL Urine Color Urine Appearance (Clear) Urine pH (5.0-8.0) Ur Specific [place] (1.001-1.035) Urine Protein (Negative) Urine Glucose (UA) (Negative) Urine Ketones (Negative) Urine Blood (Negative) Urine Nitrite (Negative) Urine Bilirubin (Negative) Urine Urobilinogen (<2.0) mg/dL Ur Leukocyte Esterase (Negative) Influenza Type A RNA (Not Detectd) Influenza Type B (PCR) (Not Detectd) 12/08/18 12/08/18 12/08/18 Range/Units 12:52 12:52 12:52 WBC (3.8-10.6) k/uL RBC (4.30-5.90) m/uL Hgb (13.0-17.5) gm/dL Hct (39.0-53.0) % MCV (80.0-100.0) fL MCH (25.0-35.0) pg MCHC (31.0-37.0) g/dL RDW (11.5-15.5) % Plt Count (150-450) k/uL Neutrophils % % Lymphocytes % % Monocytes % % Eosinophils % % Basophils % % Neutrophils # (1.3-7.7) k/uL Lymphocytes # (1.0-4.8) k/uL Monocytes # (0-1.0) k/uL Eosinophils # (0-0.7) k/uL Basophils # (0-0.2) k/uL Manual Slide Review PT 10.4 (9.0-12.0) sec INR 1.0 (<1.2) APTT 22.1 (22.0-30.0) sec Sodium (137-145) mmol/L Potassium (3.5-5.1) mmol/L Chloride (98-107) mmol/L Carbon Dioxide (22-30) mmol/L Anion Gap mmol/L BUN (9-20) mg/dL Creatinine (0.66-1.25) mg/dL Est GFR (CKD-EPI)AfAm (>60 ml/min/1.73 sqM) Est GFR (CKD-EPI)NonAf (>60 ml/min/1.73 sqM) Glucose (74-99) mg/dL Plasma Lactic Acid Evgeny (0.7-2.0) mmol/L Calcium (8.4-10.2) mg/dL Total Bilirubin (0.2-1.3) mg/dL AST (17-59) U/L ALT (21-72) U/L Alkaline Phosphatase (38-126) U/L Troponin I <0.012 (0.000-0.034) ng/mL Total Protein (6.3-8.2) g/dL Albumin (3.5-5.0) g/dL Urine Color Urine Appearance (Clear) Urine pH (5.0-8.0) Ur Specific [place] (1.001-1.035) Urine Protein (Negative) Urine Glucose (UA) (Negative) Urine Ketones (Negative) Urine Blood (Negative) Urine Nitrite (Negative) Urine Bilirubin (Negative) Urine Urobilinogen (<2.0) mg/dL Ur Leukocyte Esterase (Negative) Influenza Type A RNA Not Detected (Not Detectd) Influenza Type B (PCR) Not Detected (Not Detectd) 12/08/18 Range/Units 12:52 WBC (3.8-10.6) k/uL RBC (4.30-5.90) m/uL Hgb (13.0-17.5) gm/dL Hct (39.0-53.0) % MCV (80.0-100.0) fL MCH (25.0-35.0) pg MCHC (31.0-37.0) g/dL RDW (11.5-15.5) % Plt Count (150-450) k/uL Neutrophils % % Lymphocytes % % Monocytes % % Eosinophils % % Basophils % % Neutrophils # (1.3-7.7) k/uL Lymphocytes # (1.0-4.8) k/uL Monocytes # (0-1.0) k/uL Eosinophils # (0-0.7) k/uL Basophils # (0-0.2) k/uL Manual Slide Review PT (9.0-12.0) sec INR (<1.2) APTT (22.0-30.0) sec Sodium (137-145) mmol/L Potassium (3.5-5.1) mmol/L Chloride (98-107) mmol/L Carbon Dioxide (22-30) mmol/L Anion Gap mmol/L BUN (9-20) mg/dL Creatinine (0.66-1.25) mg/dL Est GFR (CKD-EPI)AfAm (>60 ml/min/1.73 sqM) Est GFR (CKD-EPI)NonAf (>60 ml/min/1.73 sqM) Glucose (74-99) mg/dL Plasma Lactic Acid Evgeny (0.7-2.0) mmol/L Calcium (8.4-10.2) mg/dL Total Bilirubin (0.2-1.3) mg/dL AST (17-59) U/L ALT (21-72) U/L Alkaline Phosphatase (38-126) U/L Troponin I (0.000-0.034) ng/mL Total Protein (6.3-8.2) g/dL Albumin (3.5-5.0) g/dL Urine Color Yellow Urine Appearance Clear (Clear) Urine pH 5.0 (5.0-8.0) Ur Specific [place] 1.023 (1.001-1.035) Urine Protein Trace H (Negative) Urine Glucose (UA) Negative (Negative) Urine Ketones Negative (Negative) Urine Blood Negative (Negative) Urine Nitrite Negative (Negative) Urine Bilirubin Negative (Negative) Urine Urobilinogen <2.0 (<2.0) mg/dL Ur Leukocyte Esterase Negative (Negative) Influenza Type A RNA (Not Detectd) Influenza Type B (PCR) (Not Detectd) Disposition Clinical Impression: Lactic acid acidosis, Pneumonia, Chest pain, Bilateral leg pain Disposition: ADMITTED IP TO THIS HOSP Referrals: Carrie Izaguirre MD [Primary Care Provider] - 1-2 days Time of Disposition: 15:08
[2018-12-08] MEDS: SODIUM CHLORIDE 0.9% 500 ML 500 ML IV SCH (12:51)
[2018-12-08 13:41] LABS: ALT 42 U/L (21-72); AST 38 U/L (17-59); Albumin 4.4 g/dL (3.5-5.0); Alkaline Phosphatase 73 U/L (38-126); Anion Gap 12 mmol/L; Blood Urea Nitrogen 15 mg/dL (9-20); Calcium 9.6 mg/dL (8.4-10.2); Carbon Dioxide 21 mmol/L (22-30); Chloride 107 mmol/L (98-107); Glucose 119 mg/dL (74-99); Potassium 4.3 mmol/L (3.5-5.1); Sodium 140 mmol/L (137-145); Total Protein 7.4 g/dL (6.3-8.2)
[2018-12-08 13:43] LABS: Partial Thromboplastin Time 22.1 sec (22.0-30.0); Prothrombin Time 10.4 sec (9.0-12.0)
[2018-12-08 13:56] LABS: Basophils % (A) 0 %; Eosinophils # (A) 0.1 k/uL (0-0.7); Eosinophils % (A) 1 %; HCT 42.4 % (39.0-53.0); HGB 13.7 gm/dL (13.0-17.5); Lymphocytes # (A) 0.7 k/uL (1.0-4.8); Lymphocytes % (A) 8 %; MCH 31.1 pg (25.0-35.0); MCHC 32.3 g/dL (31.0-37.0); MCV 96.4 fL (80.0-100.0); Mean Platelet Volume 7.2; Monocytes # (A) 0.4 k/uL (0-1.0); Monocytes % (A) 5 %; Neutrophils % (A) 85 %; RDW 14.5 % (11.5-15.5); WBC 8.2 k/uL (3.8-10.6)
[2018-12-08 14:01] LABS: Appearance,Urine Clear (Clear); Bilirubin,Urine Negative (Negative); Blood,Urine Negative (Negative); Color,Urine Yellow; Glucose,Urine (UA) Negative (Negative); Ketones,Urine Negative (Negative); Leukocyte Esterase,Urine Negative (Negative); Nitrite,Urine Negative (Negative); Protein,Urine Trace (Negative); Specific Gravity,Urine 1.023 (1.001-1.035); Urobilinogen,Urine <2.0 mg/dL (<2.0)
[2018-12-08 14:11] LABS: Platelet Count 86 k/uL (150-450)
--- NOTE | 2018-12-08 14:46 | XR ---
EXAMINATION TYPE: XR chest 2V DATE OF EXAM: 12/08/2018 COMPARISON: Chest x-ray and CTA chest October 26, 2018. HISTORY: Fever. TECHNIQUE: Frontal and lateral views of the chest are obtained. FINDINGS: Metallic hardware from the vertex right shoulder arthroplasty is partially imaged similar prior. Cardiac silhouette size is stable and enlarged. New mild central vascular congestion is felt p resent. There is additional more focal left basilar opacity on current study, cannot rule out develop ing atelectasis and/or infiltrate on this exam. No large pleural effusion or pneumothorax is present bilaterally. IMPRESSION: Cardiomegaly with suspected new central vascular congestion, cannot exclude developing a cute left basilar atelectasis and/or infiltrate. Consider progress study.
[2018-12-08] MEDS ORDERED: LEVOFLOXACIN 750MG-D5W PMX 750 MG in DEXTROSE/WATER 1 150ML.BAG IVPB STA ×2 (15:06→16:17)
[2018-12-08] MEDS ORDERED: PIPERACILLIN-TAZOBACTAM 3.375 GM in SODIUM CHLORIDE 0.9% 100 ML IVPB STA (16:17)
[2018-12-08] MEDS ORDERED: PNEUMONIA PROTOCOL UTILIZED 1 EACH MISC PO PRN (16:17)
--- NOTE | 2018-12-08 17:11 | P.HPIM ---
History of Present Illness H&P Date: 12/08/18 The patient is a 73 yo M w/ a PMH of CAD w/ systolic CHF (EF 45-50%), COPD, DM, HTN, HLD, thrombocytopenia, non-alcoholic steatosis, and multiple orthopedic surgeries (lianet knee replacements, and lianet shoulder rotator cuff surgeries) presented to the ED due to lianet leg pain and coughing. The patient notes that he has intermittent aching pain in both his legs for the past 3-4 years, non- exertional, lasting 1-2 hours at a time, with no alleviating or exacerbating factors. He also noted that for the past 1 week he has been experiencing a non- productive cough with some mild episodes of chest discomfort after excessive coughing. At the time of the interview, he denied any leg pain. He otherwise denied diaphoresis, nausea, vomiting, dizziness, leg swelling, recent travel, sick contacts, abdominal pain, diarrhea, or constipation. The patient had a comprehensive w/u in the ED w/ CXR showing possible L basilar infiltrate, WBC 8.2, Lactate 3.4, influenza negative, troponin < 0.012, and platelets 86. He was admitted to the medicine service for sepsis secondary to community acquired pneumonia. Review of Systems Pertinent positives and negatives as discussed in HPI, a complete review of systems was performed and all other systems are negative. Past Medical History Past Medical History: Coronary Artery Disease (CAD), Chest Pain / Angina, Heart Failure, COPD, Diabetes Mellitus, GERD/Reflux, Hyperlipidemia, Hypertension, Myocardial Infarction ([place]), Pneumonia, Vascular Disorder Additional Past Medical History / Comment(s): Ischemic cardiomyopathy, nonsustained ventriclar arrhythmia, systolic heart failure, [place] x 2 in 2001 and 1994, 06/2018 acute cellulitis 2ndary to local trauma L kneecap, kidney stones which pt believes he passed, gout bilateral feet toes. Last Myocardial Infarction Date:: 2001 History of Any Multi-Drug Resistant Organisms: None Reported Past Surgical History: Heart Catheterization, Heart Catheterization With Stent, Joint Replacement, Orthopedic Surgery Additional Past Surgical History / Comment(s): PCIs with a total of 6 stents per patient, cardiac ablation-AVRNT, EPS, R knee arthroscopy, bilateral total knee replacements with L side done twice, bilateral shoulder rotator cuff surgeries with L side done 3 times, L ankle surgery, bilateral carpal tunnel releases. Past Anesthesia/Blood Transfusion Reactions: No Reported Reaction Date of Last Stent Placement:: 02/10/17 Past Psychological History: No Psychological Hx Reported Smoking Status: Former smoker Past Alcohol Use History: None Reported Past Drug Use History: None Reported - Past Family History Father History Unknown: Yes Additional Family Medical History / Comment(s): Pt does not know his father's history. His parents were . Mother History Unknown: Yes Family Medical History: Cancer Additional Family Medical History / Comment(s): Pt states mother had some form of cancer which she from. Medications and Allergies Home Medications Medication Instructions Recorded Confirmed Type Allopurinol [Zyloprim] 300 mg PO DAILY 06/07/14 12/08/18 History Insulin NPH Hum/Reg Insulin Hm 10 unit SQ AC-SUPPER 06/07/14 12/08/18 History [NovoLIN 70-30 100 UNIT/ML VIAL] Isosorbide Mononitrate [Imdur] 30 mg PO DAILY 06/07/14 12/08/18 History metFORMIN HCL 1,000 mg PO BID 06/07/14 12/08/18 History Ferrous Sulfate [Iron (65 MG 325 mg PO DAILY 03/07/16 12/08/18 History Elemental)] Spironolactone [Aldactone] 25 mg PO DAILY #30 tab 03/09/16 12/08/18 Rx Atorvastatin [Lipitor] 20 mg PO HS 07/21/17 12/08/18 History Carvedilol [Coreg] 12.5 mg PO BID 07/21/17 12/08/18 History Insulin NPH Hum/Reg Insulin Hm 20 unit SQ AC-BRKFST #0 07/29/17 12/08/18 Rx [NovoLIN 70-30 100 UNIT/ML VIAL] Aspirin 325 mg PO DAILY 10/20/18 12/08/18 History Allergies Allergy/AdvReac Type Severity Reaction Status Date / Time No Known Allergies Allergy Verified 12/08/18 13:42 Physical Exam Vitals: Vital Signs Temp Pulse Resp BP Pulse Ox 12/08/18 14:57 99.8 F H 12/08/18 14:30 77 19 115/78 98 12/08/18 14:00 80 18 148/69 97 12/08/18 13:30 76 17 133/76 97 12/08/18 13:00 81 19 142/72 96 12/08/18 12:30 83 18 121/65 98 01/15/19 12:11 100.7 F H 87 18 65 98 Intake and Output 12/08/18 12/08/18 12/08/18 06:59 14:59 22:59 Other: Weight 86.183 kg General: [non toxic], [no distress], [appears at stated age], [overweight] Derm: [no unusual rashes/lesions] [no unusual ecchymoses], [warm], [dry] Head: [atraumatic], [normocephalic], [symmetric] Eyes: [EOMI], [no lid lag], [anicteric sclera], [pupils equal round reactive to light] ENT: [Nose and ears atraumatic], [no thrush], [no pharyngeal erythema] Neck: [No thyromegaly], [no cervical lymphadenopathy], [trachea midline], [ supple] Mouth: [no lip lesion], [mucus membranes moist] Cardiovascular: [S1S2 reg], [no murmur], [positive posterior tibial pulse bilateral], [no edema], [capillary refill less than 2 seconds], positive dorsalis pedis pulses lianet Lungs: [Mild bibasilar ronchi], [no accessory muscle use] Abdominal: [soft], [ nontender to palpation], [no guarding], [no appreciable organomegaly], [normal bowel sounds] Ext: [no gross muscle atrophy], [muscle strength 5 out of 5 in all 4 extremities grossly], [no contractures], no erythema w/ trace lianet LE edema noted Neuro: [ CN II-XI grossly intact], [light touch intact all 4 extremities], [ finger to nose within normal limits], Psych: [Alert], [oriented], [appropriate affect] Results CBC & Chem 7: 12/08/18 12:52 12/08/18 12:52 Labs: Abnormal Lab Results - Last 24 Hours (Table) 12/08/18 12/08/18 12/08/18 Range/Units 12:52 12:52 12:52 Plt Count 86 L (150-450) k/uL Lymphocytes # 0.7 L (1.0-4.8) k/uL Carbon Dioxide 21 L (22-30) mmol/L Glucose 119 H (74-99) mg/dL Plasma Lactic Acid Evgeny 3.4 H* (0.7-2.0) mmol/L Total Bilirubin 2.0 H (0.2-1.3) mg/dL Urine Protein (Negative) 12/08/18 Range/Units 12:52 Plt Count (150-450) k/uL Lymphocytes # (1.0-4.8) k/uL Carbon Dioxide (22-30) mmol/L Glucose (74-99) mg/dL Plasma Lactic Acid Evgeny (0.7-2.0) mmol/L Total Bilirubin (0.2-1.3) mg/dL Urine Protein Trace H (Negative) Assessment and Plan Plan: Sepsis secondary to community acquired pneumonia -C/w Levaquin 750 mg qd -Will give gentle hydration in light of CHF -Repeat lactate levels Chronic lianet LE pain -Will obtain PHUONG studies -No signs pointing towards an infection or DVT Thrombocytopenia -Chronic, previously worked up by Hematology Chronic conditions: CAD w/ systolic CHF, COPD, DM, HTN, HLD, -Resume home meds -ARUN with FS DVT//GI prophylaxis -IPCDs -Protonix The patient is admitted with an anticipated greater than 2 midnight stay for evaluation of sepsis secondary to pnuemonia CODE STATUS: Full-code Discussed with: Patient Anticipated discharge date: 12/11/[address]: Home A total of 60 minutes was spent on the care of this complex patient more than 50 % of the time was spent in counseling and care coordination.
[2018-12-08] MEDS: SODIUM CHLORIDE 0.9% 1,000 ML IV SCH (18:30)
[2018-12-08] MEDS ORDERED: INSULIN ASPART 100 UNIT/ML 1 ML 10 ML VIAL SQ SCH (18:30)
[2018-12-08] MEDS: ATORVASTATIN 20 MG TAB PO SCH (20:40)
[2018-12-08] MEDS ORDERED: NON-FORMULARY DRUG (Carvedilol [Coreg] 12.5 MG) PO SCH (21:00)
[2018-12-08 21:11] LABS: Glucose,Whole Blood 132 mg/dL (75-99)
[2018-12-08] MEDS: INSULIN ASPART 100 UNIT/ML 1 ML 10 ML VIAL SQ SCH (21:39)
[2018-12-09] MEDS: PIPERACILLIN-TAZOBACTAM 3.375 GM in SODIUM CHLORIDE 0.9% 100 ML IVPB SCH ×4 (00:54→23:17)
[2018-12-09 05:52] LABS: Glucose,Whole Blood 134 mg/dL (75-99)
[2018-12-09] MEDS: SODIUM CHLORIDE 0.9% 1,000 ML IV SCH ×2 (06:01→20:22)
[2018-12-09] MEDS: INSULIN ASPART 100 UNIT/ML 1 ML 10 ML VIAL SQ SCH ×4 (06:01→21:43)
--- NOTE | 2018-12-09 08:01 | XR ---
EXAMINATION TYPE: XR chest 2V DATE OF EXAM: 12/09/2018 COMPARISON: Chest x-ray from yesterday and older studies. HISTORY: Pneumonia, abnormal x-ray. TECHNIQUE: Frontal and lateral views of the chest are obtained. FINDINGS: Metallic hardware from right shoulder surgery is partially imaged similar to prior. There is stable cardiomegaly. Improving central vascular congestion is noted. There is persistent left basi lar opacity though there is improved aeration on current study with better visualization of left alberto diaphragm. Patchy right basilar opacity remains present. No pleural effusion or pneumothorax is seen bilaterally. Suspect mild concentric narrowing of the distal trachea. This is not significantly jara ed from prior studies. IMPRESSION: Cardiomegaly with improving central vascular congestion and left greater than right biba silar acute infiltrate and/or atelectasis also felt improving in the left lung base. No new infiltrat e is seen. Chronic Mild concentric distal tracheal narrowing noted.
[2018-12-09] MEDS: ALLOPURINOL 300 MG TAB PO SCH (08:41)
[2018-12-09] MEDS: FERROUS SULFATE 325 MG TAB PO SCH (08:41)
[2018-12-09] MEDS: ASPIRIN 325 MG TAB PO SCH (08:41)
[2018-12-09] MEDS ORDERED: ISOSORBIDE MONONITRATE ER 30 MG TAB.ER.24H PO SCH (09:00)
[2018-12-09] MEDS ORDERED: SPIRONOLACTONE 25 MG TAB PO SCH (09:00)
[2018-12-09 11:38] LABS: Glucose,Whole Blood 151 mg/dL (75-99)
[2018-12-09 12:29] LABS: Hemoglobin A1C 5.8 % (4.0-6.0)
[2018-12-09] MEDS ORDERED: LEVOFLOXACIN 750MG-D5W PMX 750 MG in DEXTROSE/WATER 1 150ML.BAG IVPB SCH (15:00)
[2018-12-09] MEDS ORDERED: LEVOFLOXACIN 750 MG TAB PO SCH (15:00)
--- NOTE | 2018-12-09 15:59 | P.PN ---
Subjective Progress Note Date: 12/09/18 The patient was seen and examined at the bedside. Continues to have non- productive cough but denied any further episodes of leg pain. Further denied chest pain, fever, chills, nausea, vomiting, or dizziness. Objective - Vital Signs Vital signs: Vital Signs Temp 97.1 F L 12/09/18 08:00 Pulse 72 12/09/18 12:00 Resp 16 12/09/18 12:00 BP 131/65 12/09/18 12:00 Pulse Ox 95 12/09/18 12:00 Intake & Output 12/08/18 12/09/18 12/09/18 18:59 06:59 18:59 Intake Total 240 1160 240 Output Total 0 Balance 240 1160 240 Weight 112.9 kg 112.4 kg Intake: Intake, IV Titration 450 Amount Sodium Chloride 0.9% 1, 450 000 ml @ 75 mls/hr IV . [id number] BRINDA Rx#:[id number] Oral 240 710 240 Output: Urine 0 Other: # Voids 1 2 - Exam General: Non-toxic, in no acute distress, appears stated age HEENT: NC/AT, anicteric sclerae, moist conjunctiva, no lid-lag, PERRLA Cardiovascular: S1/S2 wnl, no murmurs, rubs, or gallops Lungs: Clear to auscultation, normal respiratory effort, no accessory muscle use Abdominal: Soft, nontender, non-distended, no guarding, rebound, or rigidity Skin: Warm, dry Extremities: No edema or contractures Psychiatric: Alert and oriented to person, place and time, appropriate affect, Intact judgment Neuro: CN II-XII grossly intact, Strength 5/5 in all 4 extremities, Speech intact, Sensation to light touch grossly intact throughout - Labs CBC & Chem 7: 12/08/18 12:52 12/08/18 12:52 Labs: Abnormal Lab Results - Last 24 Hours (Table) 12/08/18 12/09/18 12/09/18 Range/Units 21:10 05:51 11:35 POC Glucose (mg/dL) 132 H 134 H 151 H (75-99) mg/dL Microbiology - Last 24 Hours (Table) 12/08/18 12:52 Blood Culture - Preliminary Blood No Growth after 24 hours 12/08/18 12:52 Urine Culture - Preliminary Urine,Voided Assessment and Plan Plan: Community acquired pneumonia, sepsis resolved -C/w Levaquin 750 mg qd -Gentle hydration Chronic lianet LE pain -Will need outpatient vascular follow-up -No signs pointing towards an infection or DVT Thrombocytopenia -Chronic, previously worked up by Hematology Chronic conditions: CAD w/ systolic CHF, COPD, DM, HTN, HLD, -Resume home meds -ARUN with FS DVT//GI prophylaxis - IPCDs - No indication for GI prophylaxis Discussed with: Patient Anticipated discharge date: 12/10/[address]: Home A total of 30 minutes was spent on the care of this complex patient more than 50 % of the time was spent in counseling and care coordination.
[2018-12-09 17:05] LABS: Glucose,Whole Blood 139 mg/dL (75-99)
[2018-12-09] MEDS: ATORVASTATIN 20 MG TAB PO SCH (20:24)
[2018-12-09 21:18] LABS: Glucose,Whole Blood 147 mg/dL (75-99)
[2018-12-10 01:19] VITALS: RESP 16
[2018-12-10 07:32] LABS: Glucose,Whole Blood 132 mg/dL (75-99)
[2018-12-10] MEDS: INSULIN ASPART 100 UNIT/ML 1 ML 10 ML VIAL SQ SCH ×2 (08:29→12:11)
[2018-12-10] MEDS: ALLOPURINOL 300 MG TAB PO SCH (08:30)
[2018-12-10] MEDS: FERROUS SULFATE 325 MG TAB PO SCH (08:30)
[2018-12-10] MEDS: ASPIRIN 325 MG TAB PO SCH (08:30)
[2018-12-10 10:17] VITALS: BP 100/48; PULSE 71; TEMP 98.3
[2018-12-10] MEDS: PIPERACILLIN-TAZOBACTAM 3.375 GM in SODIUM CHLORIDE 0.9% 100 ML IVPB SCH (11:14)
[2018-12-10 12:06] LABS: Glucose,Whole Blood 130 mg/dL (75-99)
--- NOTE | 2018-12-10 12:08 | P.DS ---
Providers Date of admission: 12/08/18 16:17 Expected date of discharge: 12/10/18 Attending physician: Hugo Looney MD Primary care physician: Carrie Izaguirre Hospital Course: The patient is a 73 yo M w/ a PMH of CAD w/ systolic CHF (EF 45-50%), COPD, DM, HTN, HLD, thrombocytopenia, non-alcoholic steatosis, and multiple orthopedic surgeries (lianet knee replacements, and lianet shoulder rotator cuff surgeries) presented to the ED due to lianet leg pain and coughing. The patient notes that he has intermittent aching pain in both his legs for the past 3-4 years, non- exertional, lasting 1-2 hours at a time, with no alleviating or exacerbating factors. He also noted that for the past 1 week he has been experiencing a non- productive cough with some mild episodes of chest discomfort after excessive coughing. ED workup revealed a L basilar infiltrate with an elevated lactate and the patient was admitted for sepsis secondary to community acquired pneumonia. He was started on IV abxs and his symptoms gradually improved. During the hospital course he had no further episodes of leg pain or chest discomfort and his cough improved. He was advised to f/u with his PCP for referral to vascular surgery for likely PAD requiring further studies (ie ABIs) . The patient is presently stable, agreeable, and ready for discharge to home. Physical Examination General: Awake, alert, in no acute distress HEENT: NC/AT, anicteric sclerae, moist conjunctiva, no lid-lag, PERRLA, oropharynx clear, no erythema, exudates Cardiovascular: S1/S2 wnl, no murmurs, rubs, or gallops Lungs: Clear to auscultation, normal respiratory effort, no accessory muscle use Abdominal: Soft, nontender, non-distended, no guarding, rebound, or rigidity, normoactive bowel sounds Skin: Warm, dry Extremities: No edema or contractures Psychiatric: Alert and oriented to person, place and time, appropriate affect, Intact judgment Neuro: CN II-XI grossly intact, sensation to light touch grossly present throughout, strength 5/5 throughout Discharge diagnosis: Community acquired pneumonia; Chronic lianet LE pain; Thrombocytopenia; CAD; systolic CHF; COPD; DM; HTN; HLD A total of 65 minutes of time were spent preparing this complex discharge summary. Pertinent Studies: As per above Procedures: As per above Patient Condition at Discharge: Stable Plan - Discharge Summary Discharge Rx Participant: No New Discharge Prescriptions: New Levofloxacin [Levaquin] 750 mg PO Q24H #5 tab Continue metFORMIN HCL 1,000 mg PO BID Isosorbide Mononitrate [Imdur] 30 mg PO DAILY Allopurinol [Zyloprim] 300 mg PO DAILY Insulin NPH Hum/Reg Insulin Hm [NovoLIN 70-30 100 UNIT/ML VIAL] 10 unit SQ AC -SUPPER Ferrous Sulfate [Iron (65 MG Elemental)] 325 mg PO DAILY Spironolactone [Aldactone] 25 mg PO DAILY #30 tab Carvedilol [Coreg] 12.5 mg PO BID Atorvastatin [Lipitor] 20 mg PO HS Insulin NPH Hum/Reg Insulin Hm [NovoLIN 70-30 100 UNIT/ML VIAL] 20 unit SQ AC -BRKFST #0 Aspirin 325 mg PO DAILY Discharge Medication List Allopurinol [Zyloprim] 300 mg PO DAILY 06/07/14 [History] Insulin NPH Hum/Reg Insulin Hm [NovoLIN 70-30 100 UNIT/ML VIAL] 10 unit SQ AC- SUPPER 06/07/14 [History] Isosorbide Mononitrate [Imdur] 30 mg PO DAILY 06/07/14 [History] metFORMIN HCL 1,000 mg PO BID 06/07/14 [History] Ferrous Sulfate [Iron (65 MG Elemental)] 325 mg PO DAILY 03/07/16 [History] Spironolactone [Aldactone] 25 mg PO DAILY #30 tab 03/09/16 [Rx] Atorvastatin [Lipitor] 20 mg PO HS 07/21/17 [History] Carvedilol [Coreg] 12.5 mg PO BID 07/21/17 [History] Insulin NPH Hum/Reg Insulin Hm [NovoLIN 70-30 100 UNIT/ML VIAL] 20 unit SQ AC- BRKFST #0 07/29/17 [Rx] Aspirin 325 mg PO DAILY 10/20/18 [History] Levofloxacin [Levaquin] 750 mg PO Q24H #5 tab 12/10/18 [Rx] Follow up Appointment(s)/Referral(s): Carrie Izaguirre MD [Primary Care Provider] - 12/15/18 8:30 am (Friday -previously scheduled appointment) Discharge Disposition: HOME SELF-CARE
== END 2018-12-10 13:56 | disposition home or self-care (01) | DRG 871 ==
LOC: EC 12:04 → 3SCARD 16:17 → 4SSUR 12-10 00:52
PROVIDERS: ADMIT Internal Medicine; ATTEND Internal Medicine
DX: A41.9 Sepsis, unspecified organism (principal); J18.9 Pneumonia, unspecified organism; I50.22 Chronic systolic (congestive) heart failure; E87.2 Acidosis; J44.0 Chronic obstructive pulmonary disease with (acute) lower respiratory infection; I11.0 Hypertensive heart disease with heart failure; E11.9 Type 2 diabetes mellitus without complications; I25.10 Atherosclerotic heart disease of native coronary artery without angina pectoris; E78.5 Hyperlipidemia, unspecified; I25.5 Ischemic cardiomyopathy; D69.6 Thrombocytopenia, unspecified; I45.10 Unspecified right bundle-branch block; K75.81 Nonalcoholic steatohepatitis (NASH); K21.9 Gastro-esophageal reflux disease without esophagitis; M10.9 Gout, unspecified; Z96.653 Presence of artificial knee joint, bilateral; I25.2 Old myocardial infarction; Z79.82 Long term (current) use of aspirin; Z79.4 Long term (current) use of insulin; Z79.899 Other long term (current) drug therapy; Z87.891 Personal history of nicotine dependence; Z87.442 Personal history of urinary calculi; Z86.19 Personal history of other infectious and parasitic diseases; Z95.5 Presence of coronary angioplasty implant and graft
CPT/HCPCS: 36415; 71046; 80053; 81003; 83036; 83605; 84484; 85025; 85610; 85730; 87040; 87070; 87086; 87205; 87502; 93005; 96361; 96365; 96366; 99285

== ENCOUNTER 2019-02-05 02:41 | Observation (INO) | payer MEDICARE ==
--- NOTE | 2019-02-05 02:51 | ED ---
Chest Pain HPI - General Stated Complaint: Chest Pain Hx Cardiac Time Seen by Provider: 02/05/19 02:51 - History of Present Illness Initial Comments: Vasquez is a 73-year-old gentleman with a history of CAD and CT 2 in the past. Patient presents to the emergency department today via EMS for evaluation of sudden onset of pressure-like chest pain with radiation to both shoulders. This pain woke him from sleep. This pain is identical previous MIs. Patient took aspirin prior to calling EMS. Patient reports he has been experiencing frequent chest pain recently. 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 Patient reports he gets chest pain with any exertion, he states he still tries to go the gym but has to take it very easy because he gets chest pain while working out. Patient reports that this chest pain that developed tonight is similar to his regular chest pain in character however it's much worse and it occurred at rest and has been persistent. - Related Data Home Medications Medication Instructions Recorded Confirmed Allopurinol [Zyloprim] 300 mg PO DAILY 06/07/14 12/08/18 Insulin NPH Hum/Reg Insulin Hm 10 unit SQ AC-SUPPER 06/07/14 12/08/18 [NovoLIN 70-30 100 UNIT/ML VIAL] Isosorbide Mononitrate [Imdur] 30 mg PO DAILY 06/07/14 12/08/18 metFORMIN HCL 1,000 mg PO BID 06/07/14 12/08/18 Ferrous Sulfate [Iron (65 MG 325 mg PO DAILY 03/07/16 12/08/18 Elemental)] Atorvastatin [Lipitor] 20 mg PO HS 07/21/17 12/08/18 Carvedilol [Coreg] 12.5 mg PO BID 07/21/17 12/08/18 Aspirin 325 mg PO DAILY 10/20/18 12/08/18 Previous Rx's Medication Instructions Recorded Spironolactone [Aldactone] 25 mg PO DAILY #30 tab 03/09/16 Insulin NPH Hum/Reg Insulin Hm 20 unit SQ AC-BRKFST #0 07/29/17 [NovoLIN 70-30 100 UNIT/ML VIAL] Levofloxacin [Levaquin] 750 mg PO Q24H #5 tab 12/10/18 Allergies Allergy/AdvReac Type Severity Reaction Status Date / Time No Known Allergies Allergy Verified 12/08/18 13:42 Review of Systems ROS Statement: Those systems with pertinent positive or pertinent negative responses have been documented in the HPI. ROS Other: All systems not noted in ROS Statement are negative. EKG Findings - EKG Comments: EKG Findings:: EKG obtained at 2:52 AM, rate is 64 rhythm is sinus with a leftward deviation and a right bundle branch block. IL is 194 QRS is 134 QTc is 455. There are no ST elevations or depressions or or T wave inversions in V3 and V4 aVF. Compared to EKG obtained in November 2018 there is some QRS morphology changes in V1 and V2 this could be related to lead placement, there are no other significant changes in morphology. Past Medical History Past Medical History: Coronary Artery Disease (CAD), Chest Pain / Angina, Heart Failure, COPD, Diabetes Mellitus, GERD/Reflux, Hyperlipidemia, Hypertension, Myocardial Infarction (CT), Pneumonia, Vascular Disorder Additional Past Medical History / Comment(s): Ischemic cardiomyopathy, nonsustained ventriclar arrhythmia, systolic heart failure, CT x 2 in 2001 and 1994, 06/2018 acute cellulitis 2ndary to local trauma L kneecap, kidney stones which pt believes he passed, gout bilateral feet toes. Last Myocardial Infarction Date:: 2001 History of Any Multi-Drug Resistant Organisms: None Reported Past Surgical History: Heart Catheterization, Heart Catheterization With Stent, Joint Replacement, Orthopedic Surgery Additional Past Surgical History / Comment(s): PCIs with a total of 6 stents per patient, cardiac ablation-AVRNT, EPS, R knee arthroscopy, bilateral total knee replacements with L side done twice, bilateral shoulder rotator cuff surgeries with L side done 3 times, L ankle surgery, bilateral carpal tunnel releases. Past Anesthesia/Blood Transfusion Reactions: No Reported Reaction Additional Past Anesthesia/Blood Transfusion Reaction / Comment(s): never had a blood tranfusion Date of Last Stent Placement:: 02/10/17 Smoking Status: Former smoker - Past Family History Father History Unknown: Yes Additional Family Medical History / Comment(s): Pt does not know his father's h istory. His parents were . Mother History Unknown: Yes Family Medical History: Cancer Additional Family Medical History / Comment(s): Pt states mother had some form of cancer which she from. General Exam - General Exam Comments Initial Comments: Physical Exam GENERAL: Patient is well-developed and well-nourished. Patient is nontoxic and well- hydrated and is in no distress. HENT: Normocephalic, Atraumatic. EYES: PERRL, EOMI PULMONARY: Unlabored respirations. No audible rales rhonchi or wheezing was noted. CARDIOVASCULAR: There is a regular rate and rhythm without any gallops or rubs. ABDOMEN: Soft and nontender with normal bowel sounds. Obese SKIN: Skin is clear with no lesions or rashes and otherwise unremarkable. : Deferred NEUROLOGIC: Patient is alert and oriented x3. Moving all extremities spontaneously MUSCULOSKELETAL: Normal extremities with adequate strength and full range of motion. No lower extremity swelling or edema. No calf tenderness. PSYCHIATRIC: Normal psychiatric evaluation. Limitations: no limitations Course Vital Signs 02/05/19 02:54 Temperature 98.0 F Pulse Rate 73 Respiratory 18 Rate Blood Pressure 126/65 O2 Sat by Pulse 97 Oximetry Chest Pain [facility] Patient was seen and evaluated, history is obtained per the patient and review of medical record This 73-year-old gentleman with a known history of coronary artery disease, 6 stents in the past who seems to be suffering from stable angina on a regular basis for which he is following with his inspector watch [employer] however today he developed angina at rest. This is concerning for cardiac etiology of chest pain EKG appears nonischemic Chest x-ray with no acute findings Labs were reviewed, troponin is not elevated however it has only been a number of hours since onset of pain, I do recommend admission for further evaluation by cardiology. Patient is agreeable. Low dose Heparin, Echo, cardiology consult and admission orders placed. Disposition Clinical Impression: Chest pain, HTN (hypertension), Unstable angina pectoris Disposition: ADMITTED IP TO THIS HOSP Condition: Stable Is patient prescribed a controlled substance at d/c from ED?: No
[2019-02-05 03:36] LABS: Basophils % (A) 1 %; Eosinophils # (A) 0.1 k/uL (0-0.7); Eosinophils % (A) 3 %; HCT 37.1 % (39.0-53.0); HGB 12.7 gm/dL (13.0-17.5); Lymphocytes # (A) 0.9 k/uL (1.0-4.8); Lymphocytes % (A) 30 %; MCH 32.9 pg (25.0-35.0); MCHC 34.2 g/dL (31.0-37.0); MCV 96.3 fL (80.0-100.0); Mean Platelet Volume 6.9; Monocytes # (A) 0.2 k/uL (0-1.0); Monocytes % (A) 6 %; Neutrophils # (A) 1.9 k/uL (1.3-7.7); Neutrophils % (A) 59 %; RBC 3.85 m/uL (4.30-5.90); RDW 14.2 % (11.5-15.5); WBC 3.2 k/uL (3.8-10.6)
[2019-02-05 03:45] LABS: ALT 32 U/L (21-72); AST 28 U/L (17-59); Albumin 3.6 g/dL (3.5-5.0); Alkaline Phosphatase 84 U/L (38-126); Anion Gap 8 mmol/L; Blood Urea Nitrogen 16 mg/dL (9-20); Calcium 9.2 mg/dL (8.4-10.2); Carbon Dioxide 23 mmol/L (22-30); Chloride 109 mmol/L (98-107); Glucose 132 mg/dL (74-99); Magnesium 1.6 mg/dL (1.6-2.3); Partial Thromboplastin Time 24.7 sec (22.0-30.0); Potassium 3.9 mmol/L (3.5-5.1); Sodium 140 mmol/L (137-145); Total Bilirubin 0.8 mg/dL (0.2-1.3); Total Protein 6.2 g/dL (6.3-8.2)
[2019-02-05 04:01] LABS: Platelet Count 69 k/uL (150-450)
--- NOTE | 2019-02-05 04:11 | XR ---
EXAM: XR Chest, 2 Views CLINICAL HISTORY: ITS.REASON XR Reason: Chest Pain TECHNIQUE: Frontal and lateral views of the chest. COMPARISON: 10/26/18 chest x-ray IMPRESSION: Unchanged heart size. No pleural effusion. Linear opacity in the right lower lobe may represent atelectasis versus infectious process.
[2019-02-05] MEDS ORDERED: HEPARIN SODIUM,PORCINE 5,000 UNIT/ML 1 ML VIAL IV ONE (04:24)
[2019-02-05] MEDS ORDERED: HEPARIN SOD,PORK IN 0.45% NACL 25,000 UNIT in 0.45% NACL 1 250ML.BAG IV SCH (04:30)
[2019-02-05] MEDS ORDERED: NITROGLYCERIN OINT 1 INCH/GM PACKET TOPICAL SCH (06:00)
[2019-02-05] MEDS ORDERED: CARVEDILOL 12.5 MG TAB PO SCH (07:30)
[2019-02-05] MEDS ORDERED: ALPRAZolam 0.25 MG TAB PO PRN (08:14)
[2019-02-05] MEDS ORDERED: ATORVASTATIN 80 MG TAB PO STA (08:14)
[2019-02-05] MEDS ORDERED: ALPRAZolam 0.5 MG TAB PO PRN (08:14)
[2019-02-05] MEDS ORDERED: SODIUM CHLORIDE 0.9% 1,000 ML in EMPTY BAG 1 BAG IV ONE (08:14)
[2019-02-05] MEDS ORDERED: ASPIRIN 325 MG TAB PO STA (08:14)
[2019-02-05] MEDS ORDERED: NITROGLYCERIN SL TABS 0.4 MG TAB SUBLINGUAL PRN (08:14)
--- NOTE | 2019-02-05 08:46 | CONS ---
CONSULTATION Mr. Johnson is a 73-year-old male with known history of coronary artery disease, who presented with symptoms of chest discomfort. His symptoms started yesterday, woke him up from sleep, quite severe with mild dyspnea. Patient has a prior history of multiple stenting, has been followed by Dr. Morrow on a regular basis. He has history of cardiomyopathy and a prior ICD implantation. He has been having the discomfort on and off, but not as severe as yesterday. He denies any clear PND or orthopnea. He has chronic peripheral edema, some time he gets the discomfort when he exercises at the [facility]. He has underwent cardiac catheterization in January of 2017 and at that time underwent stenting of his mid right coronary artery. At that time, the left circumflex was nondominant with no high-grade stenosis. His LAD had [id number] disease. He underwent the procedure by Dr. Morrow. Prior procedure were done by Dr. Marco Alejandre. His left ventricular systolic function by echocardiography performed in the past revealed an ejection fraction off 45%-50% on an echo performed in September of last year. His coronary risk factors are remarkable for the history of hypertension, hyperlipidemia, and diabetes. He had stopped smoking 18 years ago. MEDICATION: At home include spironolactone 25 mg daily, Imdur 30 mg daily, Coreg 12.5 mg twice a day, metformin 1 g daily, insulin, Lipitor 20 mg daily, aspirin and Zyloprim. REVIEW OF SYSTEMS: RESPIRATORY SYSTEM: He has mild dyspnea on exertion. No recent wheezing or cough. GI SYSTEM: No recent GI bleeding. SYSTEM: No dysuria or hematuria. NERVOUS SYSTEM: No stroke or seizure. PHYSICAL EXAMINATION: He is a 73-year-old male, alert, oriented, no apparent distress. Blood pressure 139/70 with a heart in the 60s. HEAD: Normocephalic eyes sclerae anicteric neck good upstroke no greenish distention. LUNGS: Clear to auscultation heart exam S1, S2. No S3 with systolic murmur heard at the base, ejection type, no diastolic murmur no rub. ABDOMEN: Soft, nontender, positive bowel sounds. Obese. No organomegaly. EXTREMITIES: +1 to 2 edema, more noted on the left side. LAB DATA: BUN creatinine 16.76. Hemoglobin of less than 0.012. Potassium 3.9. EKG revealed a sinus mechanism with evidence of inferior myocardial infarction and nonspecific T-wave inversion with poor R-wave progression and right bundle branch block and suggestion of lateral wall myocardial infarction. IMPRESSION: 1. Chest discomfort of unclear etiology in a patient with known history of coronary artery disease, rule out angina pectoris. 2. History of stenting in the right coronary artery, most recently in 2017. 3. Hypertension. 4. Hyperlipidemia. 5. Diabetes mellitus. RECOMMENDATION: I have recommended proceeding with coronary angiography to assess his status and guide his treatment. The rationale behind the procedures, risks, and complication were discussed with the patient who is in full understanding and agreement. Thank you for this consult. Will follow with you. MMODL / IJN: [id number] /
[2019-02-05] MEDS ORDERED: SPIRONOLACTONE 25 MG TAB PO SCH (09:00)
[2019-02-05] MEDS ORDERED: ISOSORBIDE MONONITRATE ER 30 MG TAB.ER.24H PO SCH (09:00)
[2019-02-05 09:06] VITALS: PULSE 61; RESP 16; TEMP 98
[2019-02-05] MEDS ORDERED: IV FLUID CONTINUATION 1,000 ML IV ONE (09:28)
[2019-02-05 09:37] LABS: Mean Platelet Volume 6.6
[2019-02-05 09:38] LABS: Platelet Count 69 k/uL (150-450)
[2019-02-05] MEDS ORDERED: fentaNYL (PF) 50 MCG/ML 2 ML AMP IV ONE (10:00)
[2019-02-05] MEDS ORDERED: LIDOCAINE 1% INJ 10MG/ML (20 ML MDV) SQ ONE (10:01)
[2019-02-05] MEDS ORDERED: VERAPAMIL SYRINGE (5 MG/10 ML) INTRAARTER ONE (10:02)
[2019-02-05] MEDS ORDERED: HEPARIN SODIUM 1,000 UN/ML (10ML VL) IV ONE (10:10)
[2019-02-05] MEDS ORDERED: IOPAMIDOL-370 125ML BTL INJ ONE (10:14)
[2019-02-05] MEDS ORDERED: RX INFO: IV CONTRAST WAS GIVEN 1 EACH MISC MISCELLANE PRN (10:24)
[2019-02-05] MEDS ORDERED: SODIUM CHLORIDE 0.9% 1,000 ML IV SCH (10:30)
[2019-02-05] MEDS ORDERED: LISINOPRIL 5 MG TAB PO SCH (10:30)
[2019-02-05 10:48] LABS: Glucose,Whole Blood 117 mg/dL (75-99)
--- NOTE | 2019-02-05 11:37 | ECHOF ---
Referral Reason:chest pain MEASUREMENTS -------- HEIGHT: 170.2 cm WEIGHT: 113.4 kg BP: 126/65 RVIDd: 3.9 cm (< 3.3) IVSd: 1.4 cm (0.6 - 1.1) LVIDd: 5.2 cm (3.9 - 5.3) LVPWd: 1.5 cm (0.6 - 1.1) IVSs: 1.9 cm LVIDs: 3.4 cm LVPWs: 2.1 cm LAESV Index (A-L): 45.14 ml/m Ao Diam: 3.3 cm (2.0 - 3.7) AV Cusp: 2.0 cm (1.5 - 2.6) LA Diam: 4.6 cm (2.7 - 3.8) MV EXCURSION: 16.009 mm (> 18.000) MV EF SLOPE: 29 mm/s (70 - 150) EPSS: 1.6 cm MV E Venkat: 1.04 m/s MV DecT: 242 ms MV A Venkat: 0.89 m/s MV E/A Ratio: 1.16 RAP: 5.00 mmHg RVSP: 36.12 mmHg FINDINGS -------- Sinus rhythm. This was a technically difficult study with suboptimal views. The left ventricular size is normal. There is moderate concentric left ventricular hypertrophy. O verall left ventricular systolic function is moderately impaired with, an EF between 35 - 40 %. Bas al lateral LV wall motion is akinetic. Basal inferior LV wall motion is akinetic. Basal inferos eptal LV wall motion is hypokinetic. Mid inferior LV wall motion is akinetic. Apical inferior L V wall motion is akinetic. The right ventricle is mild to moderately enlarged. LA is severely dilated >40 ml/m2 The right atrial size is normal. Lumason used The aortic valve is trileaflet and appears structurally normal. The mitral valve leaflets are mildly thickened. Moderate mitral regurgitation is present , predomin ately a posteriorly directed jet. Mild tricuspid regurgitation present. There is mild pulmonary hypertension. The right ventricular systolic pressure, as measured by Doppler, is 36.12mmHg. Trace/mild (physiologic) pulmonic regurgitation. The aortic root size is normal. IVC Not well visulized. There is no pericardial effusion. CONCLUSIONS -------- 1. Sinus rhythm. 2. This was a technically difficult study with suboptimal views. 3. The left ventricular size is normal. 4. There is moderate concentric left ventricular hypertrophy. 5. Overall left ventricular systolic function is moderately impaired with, an EF between 35 - 40 %. 6. Basal lateral LV wall motion is akinetic. 7. Basal inferior LV wall motion is akinetic. 8. Basal inferoseptal LV wall motion is hypokinetic. 9. Mid inferior LV wall motion is akinetic. 10. Apical inferior LV wall motion is akinetic. 11. The right ventricle is mild to moderately enlarged. 12. LA is severely dilated >40 ml/m2 13. Lumason used 14. The aortic valve is trileaflet and appears structurally normal. 15. The mitral valve leaflets are mildly thickened. 16. Moderate mitral regurgitation is present. 17. , predominately a posteriorly directed jet. 18. Mild tricuspid regurgitation present. 19. There is mild pulmonary hypertension. 20. Trace/mild (physiologic) pulmonic regurgitation. 21. The aortic root size is normal. 22. IVC Not well visulized. 23. There is no pericardial effusion. ENERGY AUDITOR: Molly Swift RDCS
--- NOTE | 2019-02-05 11:51 | CC ---
CARDIAC CATHETERIZATION REPORT Mr. Johnson is a 73-year-old male with known history of ischemic cardiomyopathy, history of coronary artery disease, status post stenting, who has been followed by Dr. Morrow on a regular basis, presented to the emergency room with symptoms of chest discomfort that woke him up from sleep. He had prior symptoms that has been getting worse recently. In view of that and in view of his prior history, recommendation made regarding cardiac catheterization. The procedures, risks, and complications were discussed with the patient who is in full understanding and agreement. PROCEDURE: Patient was brought to the distillery laborer in a fasting semi-sedated state after receiving fentanyl and Benadryl and achieving moderate conscious sedated state. Using Xylocaine anesthesia and Seldinger technique, a 6-Scottish sheath was introduced in the right radial artery. Selective right and left coronary angiography was performed using 5- Scottish 4 bend right Enrique and 5-Scottish 3.5 half bend left Enrique catheter. Multiple views of the coronary artery including hemiaxial views were obtained. Following that, a 5-Scottish tight pigtail catheter was introduced in the left ventricle and a 30 degree VALDEZ view of the left ventricle was obtained. Following that, catheter and sheath were removed. Hemostasis was obtained with deployment of a TR band. There was no immediate complication. Patient was returned to his room in stable condition. Of note, the patient received 5000 units of intravenous heparin as well as intra-arterial verapamil. FINDINGS: LEFT MAIN: This is a large-sized vessel trifurcating into left circumflex, left anterior descending artery and ramus intermedius. Left main coronary artery has about 10% plaque distally. LEFT ANTERIOR DESCENDING ARTERY: This is a large-sized vessel reaching toward the apex with a wraparound apex segment giving rise to a large diagonal branch. The left anterior descending artery at the takeoff of the diagonal branch has a 20% to 30% plaque. The rest of the vessel has no high-grade stenosis. LEFT CIRCUMFLEX: This is a nondominant large size vessel, giving rise to 3 obtuse marginal branch. The left circumflex proximally has mild intimal disease of 10% to 20% without any evidence of high-grade stenosis. RIGHT CORONARY ARTERY: This is a large dominant vessel, bifurcating distally into PDA and posterolateral segment and branches. The right coronary artery is stented in the proximal and distal area. The proximal stent is patent with no significant in-stent restenosis. The distal stent at the bifurcation is patent. There is a 30%-40% intimal restenoses without any evidence of high-grade stenosis. The rest of the vessel has no evidence of critical stenosis. LEFT VENTRICULOGRAM: Left ventriculogram was performed in 30 degree VALDEZ view and revealed an inferoapical akinesis. There was 2 to 3+ mitral regurgitation, ejection fraction is estimated at 35%. HEMODYNAMICS: There was no gradient across the aortic valve. The left ventricular end-diastolic pressure was 20 - 24 mmHg. CONCLUSION: 1. No evidence of restenosis at the prior stenting. 2. Mild to moderate disease in the left circumflex and left anterior descending artery. 3. Severely impaired left ventricular systolic function with 2 to 3+ mitral regurgitation. RECOMMENDATION: In view of finding anatomy, I would recommend continue medical therapy with aggressive coronary risk modifications being initiated. Those findings and recommendation were discussed with the patient and his family, who are in full understand and agreement. Duration of the procedure is 17 minutes. MMODL / IJN: [id number] /
[2019-02-05] MEDS ORDERED: SODIUM CHLORIDE 0.9% 500 ML 500 ML IV ONE (12:35)
[2019-02-05 15:42] VITALS: BP 124/60
[2019-02-06] MEDS ORDERED: ATORVASTATIN 40 MG TAB PO SCH (09:00)
[2019-02-06] MEDS ORDERED: ASPIRIN 81 MG PO SCH (09:00)
[2019-02-06] MEDS ORDERED: ASPIRIN 325 MG TAB PO SCH (09:00)
== END 2019-02-05 16:14 | disposition home or self-care (01) ==
LOC: EC 02:41 → 1SOBS 04:26
PROVIDERS: ADMIT Internal Medicine; ATTEND Internal Medicine
DX: R07.89 Other chest pain (principal); I25.5 Ischemic cardiomyopathy; R06.00 Dyspnea, unspecified; I25.10 Atherosclerotic heart disease of native coronary artery without angina pectoris; I34.0 Nonrheumatic mitral (valve) insufficiency; K21.9 Gastro-esophageal reflux disease without esophagitis; J44.9 Chronic obstructive pulmonary disease, unspecified; I11.0 Hypertensive heart disease with heart failure; I50.22 Chronic systolic (congestive) heart failure; E78.5 Hyperlipidemia, unspecified; I25.2 Old myocardial infarction; E11.9 Type 2 diabetes mellitus without complications; Z95.5 Presence of coronary angioplasty implant and graft; Z95.810 Presence of automatic (implantable) cardiac defibrillator; Z87.01 Personal history of pneumonia (recurrent); Z87.442 Personal history of urinary calculi; Z86.19 Personal history of other infectious and parasitic diseases; Z87.891 Personal history of nicotine dependence; Z79.899 Other long term (current) drug therapy; E66.9 Obesity, unspecified; Z68.39 Body mass index [BMI] 39.0-39.9, adult; Z79.4 Long term (current) use of insulin; Z79.82 Long term (current) use of aspirin; Z80.9 Family history of malignant neoplasm, unspecified
CPT/HCPCS: 96376; 96365; 96366; 99285; 36415; 93005; 93458; 83880; 80053; 83735; 84484; 85025; 85049; 85610; 85730; 71046; G0378; C8929; C1894; C1769; J1644 ×3; J2001; J3010; Q9950; Q9967; 93306

== ENCOUNTER 2019-02-28 21:38 | Observation (INO) | payer MEDICARE ==
[2019-02-28] MEDS ORDERED: NITROGLYCERIN SL TABS 0.4 MG TAB SUBLINGUAL STA (21:58)
[2019-02-28] MEDS ORDERED: ASPIRIN 81 MG PO STA (21:58)
--- NOTE | 2019-02-28 22:00 | ED ---
General Adult HPI - General Chief complaint: Chest Pain Stated complaint: Chest pain Time Seen by Provider: 02/28/19 21:45 Source: patient Mode of arrival: wheelchair Limitations: no limitations - History of Present Illness Initial comments: Dictation was produced using [employer] dictation software. please excuse any grammatical, word or spelling errors. Chief Complaint: Patient is 73-year-old male positive cardiac history and recent coronary artery catheterization presents with chief complaint chest pain. History of Present Illness: Patient 73-year-old male he reports intermittent substernal chest pressure. He describes the pain as dull pressure-like sensation. No radiation to the back shoulders or jaw. No associated diaphoresis. Patient denies any exacerbating or remitting factors. He mostly has pain at rest. 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 Denies any cough,. He also reports some exertional shortness of breath. The ROS documented in this emergency department record has been reviewed and confirmed by me. Those systems with pertinent positive or negative responses have been documented in the HPI. All other systems are other negative and/or noncontributory. PHYSICAL EXAM: General Impression: Alert and oriented x3, not in acute distress HEENT: Normocephalic atraumatic, extra-ocular movements intact, pupils equal and reactive to light bilaterally, mucous membranes moist. Cardiovascular: Heart regular rate and rhythm, S1&S2 audible, no murmurs, rubs or gallops Chest: Lungs clear to auscultation bilaterally, no rhonchi, no wheeze, no rales Abdomen: Bowel sounds present, abdomen soft, non-tender, non-distended, no organomegaly Musculoskeletal: Pulses present and equal in all extremities, no peripheral edema Motor: no focal deficits noted Neurological: CN II-XII grossly intact, no focal motor or sensory deficits noted Skin: Intact with no visualized rashes Psych: Normal affect and mood ED course: 73-year-old male presents with chest pain concerning for acute coronary syndrome. Vital signs upon arrival are within acceptable limits. EKG shows no findings to suggest ST segment elevation MO. Patient reports having had recent cardiac cath. Was available here in our electronic medical record. CAT shows no evidence of restenosis at prior stenting. There is mild to moderate disease of the left circumflex and left anterior descending artery.Laboratory evaluation obtained. CBC is unremarkable. Patient does have some thrombus cytopenia which appears to be normal for patient. Coag panel unremarkable. Metabolic panel is negative. Cardiac enzymes negative. Chest x- ray shows no acute processes. Patient given 1 tablet of sublingual nitroglycerin with improvement of symptoms. Does however report later that his symptoms return. Patient given aspirin. Patient given Nitropaste and started on heparin drip. Clinical presentation consistent with unstable angina. Patient be admitted for so troponins, cardiology consultation. EKG interpretation: Ventricular rate 68, normal sinus rhythm, DC interval 192, care is 136, QTC 457. No DC prolongation, no QTC prolongation, no ST or T-wave changes noted. EKG compared to 02/05/2019 showing no changes. Overall, this EKG is unremarkable - Related Data Home Medications Medication Instructions Recorded Confirmed Allopurinol [Zyloprim] 300 mg PO DAILY 06/07/14 02/05/19 Insulin NPH Hum/Reg Insulin Hm 10 unit SQ AC-SUPPER 06/07/14 02/05/19 [NovoLIN 70-30 100 UNIT/ML VIAL] Isosorbide Mononitrate [Imdur] 30 mg PO DAILY 06/07/14 02/05/19 metFORMIN HCL 1,000 mg PO BID 06/07/14 02/05/19 Ferrous Sulfate [Iron (65 MG 325 mg PO DAILY 03/07/16 02/05/19 Elemental)] Atorvastatin [Lipitor] 20 mg PO HS 07/21/17 02/05/19 Carvedilol [Coreg] 12.5 mg PO BID 07/21/17 02/05/19 Aspirin 325 mg PO DAILY 10/20/18 02/05/19 Ergocalciferol (Vitamin D2) 50,000 unit PO Q7D 02/05/19 02/05/19 [Vitamin D2] Nitroglycerin Sl Tabs [Nitrostat] 0.4 mg SUBLINGUAL Q5M PRN 02/05/19 02/05/19 Previous Rx's Medication Instructions Recorded Spironolactone [Aldactone] 25 mg PO DAILY #30 tab 03/09/16 Insulin NPH Hum/Reg Insulin Hm 20 unit SQ AC-BRKFST #0 07/29/17 [NovoLIN 70-30 100 UNIT/ML VIAL] Lisinopril [Zestril] 5 mg PO BID #60 tab 02/05/19 Allergies Allergy/AdvReac Type Severity Reaction Status Date / Time No Known Allergies Allergy Verified 02/28/19 21:44 Review of Systems ROS Statement: Those systems with pertinent positive or pertinent negative responses have been documented in the HPI. ROS Other: All systems not noted in ROS Statement are negative. Past Medical History Past Medical History: Coronary Artery Disease (CAD), Chest Pain / Angina, Heart Failure, COPD, Diabetes Mellitus, GERD/Reflux, Hyperlipidemia, Hypertension, Myocardial Infarction (MO), Pneumonia, Supraventricular Tachycardia (SVT), Vascular Disorder Additional Past Medical History / Comment(s): Ischemic cardiomyopathy, nonsustained ventriclar arrhythmia, systolic heart failure, MO x 2 in 2001 and 1994, thrombocytopenia, cellulitis 2ndary to local trauma L patella, kidney ston es which pt believes he passed, gout bilateral feet/ toes, occasional bilateral tinnitis, past 3-4 years intermittent bilateral leg pain but pt states he now takes quinine when this occurs and has relief of pain. 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 Past Anesthesia/Blood Transfusion Reactions: No Reported Reaction Additional Past Anesthesia/Blood Transfusion Reaction / Comment(s): never had a blood tranfusion Date of Last Stent Placement:: 02/10/17 Past Psychological History: No Psychological Hx Reported Smoking Status: Former smoker - Past Family History Father History Unknown: Yes Additional Family Medical History / Comment(s): Pt does not know his father's history. His parents were when he was 6 yrs old. Mother History Unknown: Yes Family Medical History: Cancer Additional Family Medical History / Comment(s): Pt states mother had some form of cancer which she from at the age of 77yrs. General Exam Limitations: no limitations Course Vital Signs 02/28/19 21:41 Temperature 98.1 F Pulse Rate 68 Respiratory 20 Rate Blood Pressure 159/79 O2 Sat by Pulse 96 Oximetry Medical Decision Making - Lab Data Result diagrams: 02/28/19 22:14 02/28/19 22:14 Lab Results 02/28/19 02/28/19 02/28/19 Range/Units 22:14 22:14 22:14 WBC 4.9 (3.8-10.6) k/uL RBC 4.41 (4.30-5.90) m/uL Hgb 14.3 (13.0-17.5) gm/dL Hct 40.6 (39.0-53.0) % MCV 92.0 (80.0-100.0) fL MCH 32.5 (25.0-35.0) pg MCHC 35.3 (31.0-37.0) g/dL RDW 14.9 (11.5-15.5) % Plt Count 85 L (150-450) k/uL Neutrophils % 56 % Lymphocytes % 31 % Monocytes % 6 % Eosinophils % 5 % Basophils % 1 % Neutrophils # 2.8 (1.3-7.7) k/uL Lymphocytes # 1.5 (1.0-4.8) k/uL Monocytes # 0.3 (0-1.0) k/uL Eosinophils # 0.2 (0-0.7) k/uL Basophils # 0.0 (0-0.2) k/uL Manual Slide Review Performed PT (9.0-12.0) sec INR (<1.2) APTT (22.0-30.0) sec Sodium 141 (137-145) mmol/L Potassium 4.3 (3.5-5.1) mmol/L Chloride 105 (98-107) mmol/L Carbon Dioxide 24 (22-30) mmol/L Anion Gap 12 mmol/L BUN 18 (9-20) mg/dL Creatinine 0.93 (0.66-1.25) mg/dL Est GFR (CKD-EPI)AfAm >90 (>60 ml/min/1.73 sqM) Est GFR (CKD-EPI)NonAf 83 (>60 ml/min/1.73 sqM) Glucose 118 H (74-99) mg/dL Calcium 9.8 (8.4-10.2) mg/dL Magnesium 1.9 (1.6-2.3) mg/dL Total Bilirubin 1.1 (0.2-1.3) mg/dL AST 39 (17-59) U/L ALT 39 (21-72) U/L Alkaline Phosphatase 114 (38-126) U/L Troponin I (0.000-0.034) ng/mL NT-Pro-B Natriuret Pep 54 pg/mL Total Protein 7.3 (6.3-8.2) g/dL Albumin 4.4 (3.5-5.0) g/dL Lipase 79 (23-300) U/L 02/28/19 02/28/19 Range/Units 22:14 22:14 WBC (3.8-10.6) k/uL RBC (4.30-5.90) m/uL Hgb (13.0-17.5) gm/dL Hct (39.0-53.0) % MCV (80.0-100.0) fL MCH (25.0-35.0) pg MCHC (31.0-37.0) g/dL RDW (11.5-15.5) % Plt Count (150-450) k/uL Neutrophils % % Lymphocytes % % Monocytes % % Eosinophils % % Basophils % % Neutrophils # (1.3-7.7) k/uL Lymphocytes # (1.0-4.8) k/uL Monocytes # (0-1.0) k/uL Eosinophils # (0-0.7) k/uL Basophils # (0-0.2) k/uL Manual Slide Review PT 10.4 (9.0-12.0) sec INR 1.0 (<1.2) APTT 21.8 L (22.0-30.0) sec Sodium (137-145) mmol/L Potassium (3.5-5.1) mmol/L Chloride (98-107) mmol/L Carbon Dioxide (22-30) mmol/L Anion Gap mmol/L BUN (9-20) mg/dL Creatinine (0.66-1.25) mg/dL Est GFR (CKD-EPI)AfAm (>60 ml/min/1.73 sqM) Est GFR (CKD-EPI)NonAf (>60 ml/min/1.73 sqM) Glucose (74-99) mg/dL Calcium (8.4-10.2) mg/dL Magnesium (1.6-2.3) mg/dL Total Bilirubin (0.2-1.3) mg/dL AST (17-59) U/L ALT (21-72) U/L Alkaline Phosphatase (38-126) U/L Troponin I <0.012 (0.000-0.034) ng/mL NT-Pro-B Natriuret Pep pg/mL Total Protein (6.3-8.2) g/dL Albumin (3.5-5.0) g/dL Lipase (23-300) U/L Disposition Clinical Impression: Chest pain Disposition: ADMITTED IP TO THIS HOSP Condition: Fair Referrals: Carrie Izaguirre MD [Primary Care Provider] - 1-2 days Decision Time: 23:45
[2019-02-28 22:34] LABS: Basophils % (A) 1 %; Eosinophils # (A) 0.2 k/uL (0-0.7); Eosinophils % (A) 5 %; HCT 40.6 % (39.0-53.0); HGB 14.3 gm/dL (13.0-17.5); Lymphocytes # (A) 1.5 k/uL (1.0-4.8); Lymphocytes % (A) 31 %; MCH 32.5 pg (25.0-35.0); MCHC 35.3 g/dL (31.0-37.0); Mean Platelet Volume 7.7; Monocytes # (A) 0.3 k/uL (0-1.0); Monocytes % (A) 6 %; Neutrophils # (A) 2.8 k/uL (1.3-7.7); Neutrophils % (A) 56 %; RBC 4.41 m/uL (4.30-5.90); RDW 14.9 % (11.5-15.5); WBC 4.9 k/uL (3.8-10.6)
[2019-02-28 22:42] LABS: Prothrombin Time 10.4 sec (9.0-12.0)
[2019-02-28 22:43] LABS: ALT 39 U/L (21-72); AST 39 U/L (17-59); Albumin 4.4 g/dL (3.5-5.0); Alkaline Phosphatase 114 U/L (38-126); Anion Gap 12 mmol/L; Blood Urea Nitrogen 18 mg/dL (9-20); Calcium 9.8 mg/dL (8.4-10.2); Carbon Dioxide 24 mmol/L (22-30); Chloride 105 mmol/L (98-107); Glucose 118 mg/dL (74-99); Lipase 79 U/L (23-300); Magnesium 1.9 mg/dL (1.6-2.3); Potassium 4.3 mmol/L (3.5-5.1); Sodium 141 mmol/L (137-145); Total Bilirubin 1.1 mg/dL (0.2-1.3); Total Protein 7.3 g/dL (6.3-8.2)
[2019-02-28 22:46] LABS: Partial Thromboplastin Time 21.8 sec (22.0-30.0)
--- NOTE | 2019-02-28 22:50 | XR ---
EXAM: XR Chest, 2 Views CLINICAL HISTORY: ITS.REASON XR Reason: Chest Pain TECHNIQUE: Frontal and lateral views of the chest. COMPARISON: 02/05/19 chest x-ray IMPRESSION: Unchanged heart size. No consolidation or pleural effusion.
[2019-02-28 23:30] LABS: Platelet Count 85 k/uL (150-450)
[2019-02-28] MEDS ORDERED: HEPARIN SODIUM,PORCINE 5,000 UNIT/ML 1 ML VIAL IV ONE (23:42)
[2019-02-28] MEDS ORDERED: HEPARIN SOD,PORK IN 0.45% NACL 25,000 UNIT in 0.45% NACL 1 250ML.BAG IV SCH (23:45)
[2019-03-01] MEDS: NITROGLYCERIN OINT 1 INCH/GM PACKET TOPICAL SCH ×3 (00:22→12:09)
[2019-03-01 00:48] VITALS: TEMP 97.8
[2019-03-01 02:11] VITALS: BMI 39.2
[2019-03-01 02:51] LABS: Cholesterol 114 mg/dL (<200); HDL Cholesterol 27 mg/dL (40-60); Triglycerides 471 mg/dL (<150)
[2019-03-01 03:52] VITALS: RESP 18
[2019-03-01 06:44] LABS: Glucose,Whole Blood 123 mg/dL (75-99)
--- NOTE | 2019-03-01 07:24 | P.CRDCN ---
History of Present Illness Consult date: 03/01/19 Chief complaint: Chest pain History of present illness: This is a pleasant 73-year-old gentleman with a past medical history significant for coronary artery disease and prior stenting of the RCA, ischemic cardiomyopathy, valvular heart disease and known MR, as well as multiple comorbid conditions, presented to the hospital complaining of chest discomfort. He was in the hospital in January 2019 with a chest discomfort and at that point he underwent a heart catheterization which revealed patent stents in the RCA was mild to moderate nonobstructive disease involving the left coronary system. At that point maximize medical treatment was advised and the patient was discharged in stable medical condition. This time he was at home when he started experiencing discomfort, in the mid of the chest, as a sharp kind of discomfort, without any radiation, and without any associated symptoms. The workup is unremarkable. The EKG showed sinus rhythm with RBBB. No ischemic changes on the EKG. The cardiac enzymes were checked and came in to be unremarkable. On follow-up with him this morning, he seems to be asymptomatic and he is chest pain-free. I am getting the patient up and around and if he is chest pain-free he can be discharged home and I will follow-up with him as an outpatient. Past Medical History Past Medical History: Coronary Artery Disease (CAD), Chest Pain / Angina, Heart Failure, COPD, Diabetes Mellitus, GERD/Reflux, Hyperlipidemia, Hypertension, Myocardial Infarction (NM), Pneumonia, Supraventricular Tachycardia (SVT), Vascular Disorder Additional Past Medical History / Comment(s): Ischemic cardiomyopathy, nonsustained ventriclar arrhythmia, systolic heart failure, [place] x 2 in 2001 and 1994, thrombocytopenia, cellulitis 2ndary to local trauma L patella, kidney stones which pt believes he passed, gout bilateral feet/ toes, occasional bilateral tinnitis, past 3-4 years intermittent bilateral leg pain but pt states he now takes quinine when this occurs and has relief of pain. 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 Past Anesthesia/Blood Transfusion Reactions: No Reported Reaction Additional Past Anesthesia/Blood Transfusion Reaction / Comment(s): never had a blood tranfusion Date of Last Stent Placement:: 02/05/19 Past Psychological History: No Psychological Hx Reported Additional Psychological History / Comment(s): Is . Pt lives with his daughter in an apartment. He is an [employer] . No travel. Retiree. Pet dog at home. Smoking Status: Former smoker Past Alcohol Use History: None Reported Additional Past Alcohol Use History / Comment(s): Pt started smoking in 1964 and quit in 2002. He smoked 2-3 ppd. In the past, pt occasionally drank alcohol-no alcohol now Past Drug Use History: None Reported - Past Family History Father History Unknown: Yes Additional Family Medical History / Comment(s): Pt does not know his father's history. His parents were when he was 6 yrs old. Mother History Unknown: Yes Family Medical History: Cancer Additional Family Medical History / Comment(s): Pt states mother had some form of cancer which she from at the age of 77yrs. Medications and Allergies Home Medications Medication Instructions Recorded Confirmed Type Allopurinol [Zyloprim] 300 mg PO DAILY 06/07/14 02/05/19 History Insulin NPH Hum/Reg Insulin Hm 10 unit SQ AC-SUPPER 06/07/14 02/05/19 History [NovoLIN 70-30 100 UNIT/ML VIAL] Isosorbide Mononitrate [Imdur] 30 mg PO DAILY 06/07/14 02/05/19 History metFORMIN HCL 1,000 mg PO BID 06/07/14 02/05/19 History Ferrous Sulfate [Iron (65 MG 325 mg PO DAILY 03/07/16 02/05/19 History Elemental)] Spironolactone [Aldactone] 25 mg PO DAILY #30 tab 03/09/16 02/05/19 Rx Atorvastatin [Lipitor] 20 mg PO HS 07/21/17 02/05/19 History Carvedilol [Coreg] 12.5 mg PO BID 07/21/17 02/05/19 History Insulin NPH Hum/Reg Insulin Hm 20 unit SQ AC-BRKFST #0 07/29/17 02/05/19 Rx [NovoLIN 70-30 100 UNIT/ML VIAL] Aspirin 325 mg PO DAILY 10/20/18 02/05/19 History Lisinopril [Zestril] 5 mg PO BID #60 tab 02/05/19 Rx Nitroglycerin Sl Tabs [Nitrostat] 0.4 mg SUBLINGUAL Q5M PRN 02/05/19 02/05/19 History Allergies Allergy/AdvReac Type Severity Reaction Status Date / Time No Known Allergies Allergy Verified 02/28/19 21:44 Physical Exam Vitals: Vital Signs Temp Pulse Pulse Resp BP BP Pulse Ox 03/01/19 03:51 97.8 F 70 18 93/49 97 03/01/19 03:35 71 17 03/01/19 00:47 97.8 F 61 18 151/71 96 03/01/19 00:25 98.1 F 72 20 135/63 98 03/01/19 00:14 17 02/28/19 21:41 98.1 F 68 20 159/79 96 Intake and Output 02/28/19 03/01/19 03/01/19 22:59 06:59 14:59 Intake Total 50.5 Balance 50.5 Intake: Intake, IV Titration 50.5 Amount Heparin Sod,Pork in 0.45% 50.5 NaCl 25,000 unit In 0.45 % NaCl 1 250ml.bag @ 10 mls/hr IV .Q24H [facility] Rx#: [id number] Other: Voiding Method Toilet # Voids 1 Weight 113.5 kg - Constitutional General appearance: no acute distress - Respiratory Respiratory: bilateral: CTA - Cardiovascular Rhythm: regular Heart sounds: normal: S1, S2 Abnormal Heart Sounds: systolic murmur Results 02/28/19 22:14 02/28/19 22:14 Cardiac Enzymes 02/28/19 02/28/19 03/01/19 Range/Units 22:14 22:14 04:05 AST 39 (17-59) U/L Troponin I <0.012 <0.012 (0.000-0.034) ng/mL Coagulation 02/28/19 03/01/19 Range/Units 22:14 04:05 PT 10.4 (9.0-12.0) sec APTT 21.8 L 41.0 H (22.0-30.0) sec Lipids 02/28/19 Range/Units 22:14 Triglycerides 471 H (<150) mg/dL Cholesterol 114 (<200) mg/dL HDL Cholesterol 27 L (40-60) mg/dL CBC 02/28/19 Range/Units 22:14 WBC 4.9 (3.8-10.6) k/uL RBC 4.41 (4.30-5.90) m/uL Hgb 14.3 (13.0-17.5) gm/dL Hct 40.6 (39.0-53.0) % Plt Count 85 L (150-450) k/uL Comprehensive Metabolic Panel 02/28/19 Range/Units 22:14 Sodium 141 (137-145) mmol/L Potassium 4.3 (3.5-5.1) mmol/L Chloride 105 (98-107) mmol/L Carbon Dioxide 24 (22-30) mmol/L BUN 18 (9-20) mg/dL Creatinine 0.93 (0.66-1.25) mg/dL Glucose 118 H (74-99) mg/dL Calcium 9.8 (8.4-10.2) mg/dL AST 39 (17-59) U/L ALT 39 (21-72) U/L Alkaline Phosphatase 114 (38-126) U/L Total Protein 7.3 (6.3-8.2) g/dL Albumin 4.4 (3.5-5.0) g/dL Current Medications Generic Name Dose Route Start Last Admin Trade Name Freq PRN Reason Stop Dose Admin Aspirin 325 mg 03/01/19 09:00 Aspirin PO DAILY [facility] Atorvastatin Calcium 20 mg 03/01/19 21:00 Lipitor PO HS [facility] Carvedilol 12.5 mg 03/01/19 07:30 Coreg PO BID-W/MEALS [facility] Heparin Sodium/Sodium Chloride 250 mls @ 10 mls/hr 02/28/19 23:45 03/01/19 05:19 25,000 unit/ Sodium Chloride IV 12.3 ml/hr .Q24H [facility] 12.3 mls/hr Titration Protocol Insulin Aspart 10 unit 03/01/19 17:30 Novolog Mix 70-30 Vial SQ AC-SUPPER [facility] Insulin Aspart 20 unit 03/01/19 07:30 Novolog Mix 70-30 Vial SQ AC-BRKFST [facility] Metformin HCl 1,000 mg 03/01/19 09:00 Glucophage PO BID [facility] Nitroglycerin 1 inch 03/01/19 00:00 03/01/19 06:43 Nitro-Bid Oint TOPICAL Not Given Q6HR [facility] Spironolactone 25 mg 03/01/19 09:00 Aldactone PO DAILY [facility] Intake and Output 02/28/19 03/01/19 03/01/19 22:59 06:59 14:59 Intake Total 50.5 Balance 50.5 Intake: Intake, IV Titration 50.5 Amount Heparin Sod,Pork in 0.45% 50.5 NaCl 25,000 unit In 0.45 % NaCl 1 250ml.bag @ 10 mls/hr IV .Q24H [facility] Rx#: [id number] Other: Voiding Method Toilet # Voids 1 Weight 113.5 kg 02/28/19 22:14 02/28/19 22:14 Assessment and Plan Assessment: Assessment #1 atypical chest discomfort #2 known CAD and prior vascularization #3 ischemic cardiomyopathy #4 mitral regurgitation #5 multiple comorbid conditions Plan #1 continue the current medical regimen #2 the patient was ruled out for acute coronary event #3 he can be discharged home. Thank you for allowing us participate in his care
[2019-03-01] MEDS ORDERED: CARVEDILOL 12.5 MG TAB PO SCH (07:30)
[2019-03-01] MEDS ORDERED: INSULN ASP PRT/INSULIN ASPART 100 UNIT/ML 10 ML VIAL SQ SCH ×2 (07:30→17:30)
[2019-03-01] MEDS ORDERED: ASPIRIN 325 MG TAB PO SCH ×2 (09:00)
[2019-03-01] MEDS ORDERED: metFORMIN 500 MG TAB PO SCH (09:00)
[2019-03-01] MEDS ORDERED: SPIRONOLACTONE 25 MG TAB PO SCH (09:00)
[2019-03-01 11:37] LABS: Glucose,Whole Blood 110 mg/dL (75-99)
[2019-03-01 12:25] VITALS: BP 100/60; PULSE 64
[2019-03-01] MEDS ORDERED: ATORVASTATIN 20 MG TAB PO SCH (21:00)
--- NOTE | 2019-03-01 22:06 | P.HPIM ---
History of Present Illness H&P Date: 03/01/19 Chief Complaint: Chest pain Patient is 73-year-old male with a known history of coronary artery disease with stent placement, RI 2 and diabetes type 2 and hypertension, SVT, ischemic cardiopathy came to ER with the complaints of intermittent substernal chest pressure. Patient says that he is dull pressure-like sensation.. Denied any radiation. No diaphoresis. Denied any exacerbating of remitting factors. Patient reports he has been experiencing frequent chest pain recently. No cough or sputum production. No nausea vomiting or diaphoresis. Patient had cardiac catheterization done on 02/05/2019 showed no evidence of restenosis. Mild to moderate disease in the left circumflex and LAD. Severe impaired left ventricular systolic function with 3+ mitral regurgitation was noted. Maximal medical therapy was recommended by cardiology. Chest x-ray showed unchanged cardiomegaly. No acute process.. EKG showed sinus rhythm. Left axis deviation. Troponin 2 negative. Review of Systems Constitutional: Patient denies any fever or chills . No generalized weakness or weight loss. Abdomen: Patient denied nausea vomiting and diarrhea and abdominal pain. Cardiovascular: Patient denies any chest pain or short of breath no palpitations. Respiratory: patient denied any cough is from production. No shortness of yoshi ath Neurologic: Patient denied any numbness or tingling headache. Musculoskeletal: Patient denies any complaints of joint swelling or deformity. Skin: Negative Psychiatric: Negative Endocrine: No heat or cold intolerance. No recent weight gain. Genitourinary: No dysuria or hematuria. All other 14 point ROS negative except the above Past Medical History Past Medical History: Coronary Artery Disease (CAD), Chest Pain / Angina, Heart Failure, COPD, Diabetes Mellitus, GERD/Reflux, Hyperlipidemia, Hypertension, Myocardial Infarction (RI), Pneumonia, Supraventricular Tachycardia (SVT), Vascular Disorder Additional Past Medical History / Comment(s): Ischemic cardiomyopathy, nonsustained ventriclar arrhythmia, systolic heart failure, RI x 2 in 2001 and 1994, thrombocytopenia, cellulitis 2ndary to local trauma L patella, kidney stones which pt believes he passed, gout bilateral feet/ toes, occasional bilateral tinnitis, past 3-4 years intermittent bilateral leg pain but pt states he now takes quinine when this occurs and has relief of pain. 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 Past Anesthesia/Blood Transfusion Reactions: No Reported Reaction Additional Past Anesthesia/Blood Transfusion Reaction / Comment(s): never had a blood tranfusion Date of Last Stent Placement:: 02/05/19 Past Psychological History: No Psychological Hx Reported Additional Psychological History / Comment(s): Is . Pt lives with his daughter in an apartment. He is an [employer] . No travel. Retiree. Pet dog at home. Smoking Status: Former smoker Past Alcohol Use History: None Reported Additional Past Alcohol Use History / Comment(s): Pt started smoking in 1964 and quit in 2002. He smoked 2-3 ppd. In the past, pt occasionally drank alcohol-no alcohol now Past Drug Use History: None Reported - Past Family History Father History Unknown: Yes Additional Family Medical History / Comment(s): Pt does not know his father's history. His parents were when he was 6 yrs old. Mother History Unknown: Yes Family Medical History: Cancer Additional Family Medical History / Comment(s): Pt states mother had some form of cancer which she from at the age of 77yrs. Medications and Allergies Home Medications Medication Instructions Recorded Confirmed Type Allopurinol [Zyloprim] 300 mg PO DAILY 06/07/14 03/01/19 History Insulin NPH Hum/Reg Insulin Hm 10 unit SQ AC-SUPPER 06/07/14 03/01/19 History [NovoLIN 70-30 100 UNIT/ML VIAL] Isosorbide Mononitrate [Imdur] 30 mg PO DAILY 06/07/14 03/01/19 History metFORMIN HCL 1,000 mg PO BID 06/07/14 03/01/19 History Ferrous Sulfate [Iron (65 MG 325 mg PO DAILY 03/07/16 03/01/19 History Elemental)] Spironolactone [Aldactone] 25 mg PO DAILY #30 tab 03/09/16 03/01/19 Rx Atorvastatin [Lipitor] 20 mg PO HS 07/21/17 03/01/19 History Carvedilol [Coreg] 12.5 mg PO BID 07/21/17 03/01/19 History Insulin NPH Hum/Reg Insulin Hm 20 unit SQ AC-BRKFST #0 07/29/17 03/01/19 Rx [NovoLIN 70-30 100 UNIT/ML VIAL] Aspirin 325 mg PO DAILY 10/20/18 03/01/19 History Lisinopril [Zestril] 5 mg PO BID #60 tab 02/05/19 03/01/19 Rx Nitroglycerin Sl Tabs [Nitrostat] 0.4 mg SUBLINGUAL Q5M PRN 02/05/19 03/01/19 History Allergies Allergy/AdvReac Type Severity Reaction Status Date / Time No Known Allergies Allergy Verified 03/01/19 08:41 Physical Exam Vitals: Vital Signs Temp Pulse Pulse Resp BP BP Pulse Ox 03/01/19 07:10 97.8 F 69 18 126/65 97 03/01/19 03:51 97.8 F 70 18 93/49 97 03/01/19 03:35 71 17 03/01/19 00:47 97.8 F 61 18 151/71 96 03/01/19 00:25 98.1 F 72 20 135/63 98 03/01/19 00:14 17 02/28/19 21:41 98.1 F 68 20 159/79 96 Intake and Output 02/28/19 03/01/19 03/01/19 22:59 06:59 14:59 Intake Total 50.5 240 Balance 50.5 240 Intake: Intake, IV Titration 50.5 Amount Heparin Sod,Pork in 0.45% 50.5 NaCl 25,000 unit In 0.45 % NaCl 1 250ml.bag @ 10 mls/hr IV .Q24H [facility] Rx#: [id number] Oral 240 Other: Voiding Method Toilet Toilet # Voids 1 Weight 113.5 kg PHYSICAL EXAMINATION: Patient is lying in the bed comfortably, no acute distress, awake alert and oriented.. HEENT: Normocephalic. Neck is supple. Pupils reactive. Nostrils clear. Oral cavity is moist. Ears reveal no drainage. Neck reveals no JVD, carotid bruits, or thyromegaly. CHEST EXAMINATION: Trachea is central. Symmetrical expansion. Lung dash clear to auscultation and percussion. CARDIAC: Normal S1, S2 with no gallops. No murmurs ABDOMEN: Soft. Bowel sounds normal. No organomegaly. No abdominal bruits. Extremities: reveal no edema. No clubbing or cyanosis Neurologically awake, alert, oriented x3 with well-coordinated movements. No focal deficits noted Skin: No rash or skin lesions. Psychiatric: Coperative. Nonsuicidal Musculoskeletal: No joint swelling or deformity. Normal range of motion. Results CBC & Chem 7: 02/28/19 22:14 02/28/19 22:14 Labs: Abnormal Lab Results - Last 24 Hours (Table) 02/28/19 02/28/19 02/28/19 Range/Units 22:14 22:14 22:14 Plt Count 85 L (150-450) k/uL APTT 21.8 L (22.0-30.0) sec Glucose 118 H (74-99) mg/dL POC Glucose (mg/dL) (75-99) mg/dL Triglycerides (<150) mg/dL HDL Cholesterol (40-60) mg/dL 02/28/19 03/01/19 03/01/19 Range/Units 22:14 04:05 06:42 Plt Count (150-450) k/uL APTT 41.0 H (22.0-30.0) sec Glucose (74-99) mg/dL POC Glucose (mg/dL) 123 H (75-99) mg/dL Triglycerides 471 H (<150) mg/dL HDL Cholesterol 27 L (40-60) mg/dL Thrombosis Risk Factor Assmnt - DVT/VTE Prophylaxis DVT/VTE Prophylaxis: Pharmacologic Prophylaxis ordered - Choose All That Apply Any of the Below Risk Factors Present?: Yes Each Factor Represents 1 point: Abnormal pulmonary function (COPD), Obesity (BMI >25) Each Risk Factor Represents 2 Points: Age 61-74 years Thrombosis Risk Factor Assessment Total Risk Factor Score: 4 Thrombosis Risk Factor Assessment Level: Moderate Risk Assessment and Plan Assessment: Atypical chest pain. Ruled out ACS. Patient had previous 02/05/2019. Maximal medical therapy was recommended. History of coronary artery disease and stent placement Diabetes type 2 GERD Hyperlipidemia History of RI History of SVT DVT prophylaxis Morbid obesity BMI 39.2 Plan: Patient be continued on telemetry monitoring. Serial EKG and troponins negative. Continue with home medications. Cardiology to consult no further workup at this time. Patient is currently asymptomatic otherwise. Time with Patient: Greater than 30
--- NOTE | 2019-03-01 22:07 | P.DS ---
Providers Date of admission: 02/28/19 23:42 Expected date of discharge: 03/01/19 Attending physician: Alexandra Torres Consults: 02/28/19 23:42 Consult Physician Urgent Consulting Provider: Ankur Morrow Consult Reason/Comments: chest pain Do you want consulting provider notified?: Yes Primary care physician: Carrie Izaguirre [facility] Course: Atypical chest pain. Ruled out ACS. Patient had previous 02/05/2019. Maximal medical therapy was recommended. History of coronary artery disease and stent placement Diabetes type 2 GERD Hyperlipidemia History of ME History of SVT DVT prophylaxis Hypertriglyceridemia Thrombocytopenia Morbid obesity BMI 39.2 Patient is 73-year-old male with a known history of coronary artery disease with stent placement, ME 2 and diabetes type 2 and hypertension, SVT, ischemic cardiopathy came to ER with the complaints of intermittent substernal chest pressure. Patient says that he is dull pressure-like sensation.. Denied any radiation. No diaphoresis. Denied any exacerbating of remitting factors. Patient reports he has been experiencing frequent chest pain recently. No cough or sputum production. No nausea vomiting or diaphoresis. Patient had cardiac catheterization done on 02/05/2019 showed no evidence of restenosis. Mild to moderate disease in the left circumflex and LAD. Severe impaired left ventricular systolic function with 3+ mitral regurgitation was noted. Maximal medical therapy was recommended by cardiology. Chest x-ray showed unchanged cardiomegaly. No acute process.. EKG showed sinus rhythm. Left axis deviation. Troponin 2 negative. Patient be continued on telemetry monitoring. Serial EKG and troponins negative. Continued with home medications. Cardiology to consult no further workup at this time. Patient is currently asymptomatic otherwise. Stable to be discharged home. Discharge physical examination was done and vitals reviewed. Patient Condition at Discharge: Fair Plan - Discharge Summary Discharge Rx Participant: Yes New Discharge Prescriptions: Continue metFORMIN HCL 1,000 mg PO BID Isosorbide Mononitrate [Imdur] 30 mg PO DAILY Allopurinol [Zyloprim] 300 mg PO DAILY Insulin NPH Hum/Reg Insulin Hm [NovoLIN 70-30 100 UNIT/ML VIAL] 10 unit SQ AC-SUPPER Ferrous Sulfate [Iron (65 MG Elemental)] 325 mg PO DAILY Spironolactone [Aldactone] 25 mg PO DAILY #30 tab Carvedilol [Coreg] 12.5 mg PO BID Atorvastatin [Lipitor] 20 mg PO HS Insulin NPH Hum/Reg Insulin Hm [NovoLIN 70-30 100 UNIT/ML VIAL] 20 unit SQ AC-BRKFST #0 Aspirin 325 mg PO DAILY Nitroglycerin Sl Tabs [Nitrostat] 0.4 mg SUBLINGUAL Q5M PRN PRN Reason: Chest Pain Lisinopril [Zestril] 5 mg PO BID #60 tab Discharge Medication List Allopurinol [Zyloprim] 300 mg PO DAILY 06/07/14 [History] Insulin NPH Hum/Reg Insulin Hm [NovoLIN 70-30 100 UNIT/ML VIAL] 10 unit SQ AC-[place] PPER 06/07/14 [History] Isosorbide Mononitrate [Imdur] 30 mg PO DAILY 06/07/14 [History] metFORMIN HCL 1,000 mg PO BID 06/07/14 [History] Ferrous Sulfate [Iron (65 MG Elemental)] 325 mg PO DAILY 03/07/16 [History] Spironolactone [Aldactone] 25 mg PO DAILY #30 tab 03/09/16 [Rx] Atorvastatin [Lipitor] 20 mg PO HS 07/21/17 [History] Carvedilol [Coreg] 12.5 mg PO BID 07/21/17 [History] Insulin NPH Hum/Reg Insulin Hm [NovoLIN 70-30 100 UNIT/ML VIAL] 20 unit SQ AC- BRKFST #0 07/29/17 [Rx] Aspirin 325 mg PO DAILY 10/20/18 [History] Lisinopril [Zestril] 5 mg PO BID #60 tab 02/05/19 [Rx] Nitroglycerin Sl Tabs [Nitrostat] 0.4 mg SUBLINGUAL Q5M PRN 02/05/19 [History] Follow up Appointment(s)/Referral(s): Ankur Morrow MD [STAFF PHYSICIAN] - 03/12/19 4:00 pm (Follow up with Dr. Morrow as scheduled) Carrie Izaguirre MD [Primary Care Provider] - 1-2 days Patient Instructions/Handouts: Chest Pain (GEN) Discharge Disposition: HOME SELF-CARE
== END 2019-03-01 14:08 | disposition home or self-care (01) ==
LOC: EC 21:38 → 1SOBS 23:42
PROVIDERS: ADMIT Hospitalist; ATTEND Hospitalist
DX: R07.89 Other chest pain (principal); I11.0 Hypertensive heart disease with heart failure; I50.22 Chronic systolic (congestive) heart failure; D69.6 Thrombocytopenia, unspecified; I25.5 Ischemic cardiomyopathy; I25.10 Atherosclerotic heart disease of native coronary artery without angina pectoris; J44.9 Chronic obstructive pulmonary disease, unspecified; K21.9 Gastro-esophageal reflux disease without esophagitis; I47.1 Supraventricular tachycardia; E78.5 Hyperlipidemia, unspecified; E11.9 Type 2 diabetes mellitus without complications; M10.9 Gout, unspecified; I45.10 Unspecified right bundle-branch block; I34.0 Nonrheumatic mitral (valve) insufficiency; E66.9 Obesity, unspecified; Z68.39 Body mass index [BMI] 39.0-39.9, adult; E78.1 Pure hyperglyceridemia; Z79.4 Long term (current) use of insulin; Z79.82 Long term (current) use of aspirin; Z79.899 Other long term (current) drug therapy; I25.2 Old myocardial infarction; Z87.01 Personal history of pneumonia (recurrent); Z87.442 Personal history of urinary calculi; Z95.5 Presence of coronary angioplasty implant and graft; Z96.653 Presence of artificial knee joint, bilateral; Z87.891 Personal history of nicotine dependence; Z87.828 Personal history of other (healed) physical injury and trauma; Z86.19 Personal history of other infectious and parasitic diseases; Z80.9 Family history of malignant neoplasm, unspecified
CPT/HCPCS: 96366; 96376; 96365; 99285; 36415; 93005; 83880; 80061; 80053; 83690; 83735; 84484 ×2; 85025; 85610; 85730 ×2; 71046; G0378 ×2; J1644 ×2

== ENCOUNTER 2019-07-11 12:16 | Emergency (ER) | payer MEDICARE ==
[2019-07-11] MEDS ORDERED: IBUPROFEN 600 MG TAB PO STA (12:32)
--- NOTE | 2019-07-11 12:34 | ED ---
General Adult HPI - General Chief complaint: Fever Stated complaint: Cold not feeling good Time Seen by Provider: 07/11/19 12:24 Source: patient, family, RN notes reviewed Mode of arrival: wheelchair Limitations: no limitations - History of Present Illness Initial comments: Patient is a pleasant 73-year-old male presenting to the emergency department se condary to feeling cold. Onset of symptoms was this morning, just a lot of hours ago. Patient amiss to having mild cough as well. No chest pain. No leg pain or leg swelling. No abdominal pain. No dysuria. Patient does feel somewhat fatigued. - Related Data Home Medications Medication Instructions Recorded Confirmed Allopurinol [Zyloprim] 300 mg PO DAILY 06/07/14 07/11/19 Insulin NPH Hum/Reg Insulin Hm 10 unit SQ AC-SUPPER 06/07/14 07/11/19 [NovoLIN 70-30 100 UNIT/ML VIAL] Isosorbide Mononitrate [Imdur] 30 mg PO DAILY 06/07/14 07/11/19 metFORMIN HCL 1,000 mg PO BID 06/07/14 07/11/19 Ferrous Sulfate [Iron (65 MG 325 mg PO DAILY 03/07/16 07/11/19 Elemental)] Atorvastatin [Lipitor] 20 mg PO HS 07/21/17 07/11/19 Aspirin 325 mg PO DAILY 10/20/18 07/11/19 Carvedilol [Coreg] 12.5 mg PO BID 07/11/19 07/11/19 Furosemide [Lasix] 20 mg PO DAILY 07/11/19 07/11/19 Magnesium Oxide [Mag-Ox] 250 mg PO DAILY 07/11/19 07/11/19 Previous Rx's Medication Instructions Recorded Spironolactone [Aldactone] 25 mg PO DAILY #30 tab 03/09/16 Insulin NPH Hum/Reg Insulin Hm 20 unit SQ AC-BRKFST #0 07/29/17 [NovoLIN 70-30 100 UNIT/ML VIAL] Allergies Allergy/AdvReac Type Severity Reaction Status Date / Time No Known Allergies Allergy Verified 07/11/19 13:04 Review of Systems ROS Statement: Those systems with pertinent positive or pertinent negative responses have been documented in the HPI. ROS Other: All systems not noted in ROS Statement are negative. Constitutional: Reports: as per HPI, chills Eyes: Denies: eye pain ENT: Denies: ear pain Respiratory: Reports: cough Cardiovascular: Denies: chest pain Endocrine: Reports: fatigue Gastrointestinal: Denies: abdominal pain Genitourinary: Denies: dysuria Musculoskeletal: Denies: back pain Skin: Denies: rash Neurological: Denies: headache Past Medical History Past Medical History: Coronary Artery Disease (CAD), Chest Pain / Angina, Heart Failure, COPD, Diabetes Mellitus, GERD/Reflux, Hyperlipidemia, Hypertension, Myocardial Infarction ([place]), Pneumonia, Supraventricular Tachycardia (SVT), Vascular Disorder Additional Past Medical History / Comment(s): Ischemic cardiomyopathy, nonsustained ventriclar arrhythmia, systolic heart failure, [place] x 2 in 2001 and 1994, thrombocytopenia, cellulitis 2ndary to local trauma L patella, kidney stones which pt believes he passed, gout bilateral feet/ toes, occasional bilateral tinnitis, past 3-4 years intermittent bilateral leg pain but pt states he now takes quinine when this occurs and has relief of pain. 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 Past Anesthesia/Blood Transfusion Reactions: No Reported Reaction Additional Past Anesthesia/Blood Transfusion Reaction / Comment(s): never had a blood tranfusion Date of Last Stent Placement:: 02/05/19 Past Psychological History: No Psychological Hx Reported Smoking Status: Former smoker Past Alcohol Use History: None Reported Past Drug Use History: None Reported - Past Family History Father History Unknown: Yes Additional Family Medical History / Comment(s): Pt does not know his father's history. His parents were when he was 6 yrs old. Mother History Unknown: Yes Family Medical History: Cancer Additional Family Medical History / Comment(s): Pt states mother had some form of cancer which she from at the age of 77yrs. General Exam Limitations: no limitations General appearance: alert, in no apparent distress Head exam: Present: atraumatic Eye exam: Present: normal appearance, PERRL ENT exam: Present: normal oropharynx Neck exam: Present: normal inspection Respiratory exam: Present: normal lung sounds bilaterally Cardiovascular Exam: Present: normal rhythm, tachycardia GI/Abdominal exam: Present: soft. Absent: tenderness Extremities exam: Present: normal inspection. Absent: pedal edema, calf tenderness Neurological exam: Present: alert Psychiatric exam: Present: normal affect, normal mood Skin exam: Present: normal color Course Vital Signs 07/11/19 07/11/19 12:17 14:06 Temperature 102.9 F H 100.7 F H Pulse Rate 112 H 68 Respiratory 24 18 Rate Blood Pressure 112/58 134/71 O2 Sat by Pulse 98 99 Oximetry EKG Findings - EKG Comments: EKG Findings:: Normal sinus rhythm 81. NV 170. QRS 132. QT 398. QTC 462. Superior axis. Right bundle branch block. Inferior Q waves. Septal and inferior T wave inversion. Medical Decision Making - Medical Decision Making Patient reevaluated and resting comfortably in bed. Patient symptom-free. Patient and family updated on results and plan. Patient denies to return if symptoms worsen. - Lab Data Result diagrams: 07/11/19 12:54 07/11/19 12:54 Lab Results 07/11/19 07/11/19 07/11/19 Range/Units 12:54 12:54 12:54 WBC 3.4 L (3.8-10.6) k/uL RBC 4.26 L (4.30-5.90) m/uL Hgb 14.3 (13.0-17.5) gm/dL Hct 41.3 (39.0-53.0) % MCV 96.9 (80.0-100.0) fL MCH 33.5 (25.0-35.0) pg MCHC 34.5 (31.0-37.0) g/dL RDW 15.3 (11.5-15.5) % Plt Count 72 L (150-450) k/uL Neutrophils % 75 % Lymphocytes % 14 % Monocytes % 7 % Eosinophils % 2 % Basophils % 1 % Neutrophils # 2.6 (1.3-7.7) k/uL Lymphocytes # 0.5 L (1.0-4.8) k/uL Monocytes # 0.2 (0-1.0) k/uL Eosinophils # 0.1 (0-0.7) k/uL Basophils # 0.0 (0-0.2) k/uL Manual Slide Review Performed RBC Morphology Normal PT (9.0-12.0) sec INR (<1.2) APTT (22.0-30.0) sec Sodium 139 (137-145) mmol/L Potassium 4.8 (3.5-5.1) mmol/L Chloride 102 (98-107) mmol/L Carbon Dioxide 25 (22-30) mmol/L Anion Gap 12 mmol/L BUN 19 (9-20) mg/dL Creatinine 1.13 (0.66-1.25) mg/dL Est GFR (CKD-EPI)AfAm 76 (>60 ml/min/1.73 sqM) Est GFR (CKD-EPI)NonAf 65 (>60 ml/min/1.73 sqM) Glucose 127 H (74-99) mg/dL Lactic Ac Sepsis Rflx Plasma Lactic Acid Evgeny 2.1 H* (0.7-2.0) mmol/L Calcium 9.5 (8.4-10.2) mg/dL Total Bilirubin 1.4 H (0.2-1.3) mg/dL AST 67 H (17-59) U/L ALT 46 (21-72) U/L Alkaline Phosphatase 106 (38-126) U/L Total Protein 7.7 (6.3-8.2) g/dL Albumin 4.6 (3.5-5.0) g/dL Urine Color Urine Appearance (Clear) Urine pH (5.0-8.0) Ur Specific [place] (1.001-1.035) Urine Protein (Negative) Urine Glucose (UA) (Negative) Urine Ketones (Negative) Urine Blood (Negative) Urine Nitrite (Negative) Urine Bilirubin (Negative) Urine Urobilinogen (<2.0) mg/dL Ur Leukocyte Esterase (Negative) Urine RBC (0-5) /hpf Urine WBC (0-5) /hpf Urine Bacteria (None) /hpf 07/11/19 07/11/19 07/11/19 Range/Units 12:54 13:17 13:45 WBC (3.8-10.6) k/uL RBC (4.30-5.90) m/uL Hgb (13.0-17.5) gm/dL Hct (39.0-53.0) % MCV (80.0-100.0) fL MCH (25.0-35.0) pg MCHC (31.0-37.0) g/dL RDW (11.5-15.5) % Plt Count (150-450) k/uL Neutrophils % % Lymphocytes % % Monocytes % % Eosinophils % % Basophils % % Neutrophils # (1.3-7.7) k/uL Lymphocytes # (1.0-4.8) k/uL Monocytes # (0-1.0) k/uL Eosinophils # (0-0.7) k/uL Basophils # (0-0.2) k/uL Manual Slide Review RBC Morphology PT 11.0 (9.0-12.0) sec INR 1.0 (<1.2) APTT 23.3 (22.0-30.0) sec Sodium (137-145) mmol/L Potassium (3.5-5.1) mmol/L Chloride (98-107) mmol/L Carbon Dioxide (22-30) mmol/L Anion Gap mmol/L BUN (9-20) mg/dL Creatinine (0.66-1.25) mg/dL Est GFR (CKD-EPI)AfAm (>60 ml/min/1.73 sqM) Est GFR (CKD-EPI)NonAf (>60 ml/min/1.73 sqM) Glucose (74-99) mg/dL Lactic Ac Sepsis Rflx Y Plasma Lactic Acid Evgeny (0.7-2.0) mmol/L Calcium (8.4-10.2) mg/dL Total Bilirubin (0.2-1.3) mg/dL AST (17-59) U/L ALT (21-72) U/L Alkaline Phosphatase (38-126) U/L Total Protein (6.3-8.2) g/dL Albumin (3.5-5.0) g/dL Urine Color Yellow Urine Appearance Clear (Clear) Urine pH 8.0 (5.0-8.0) Ur Specific [place] 1.019 (1.001-1.035) Urine Protein Negative (Negative) Urine Glucose (UA) Negative (Negative) Urine Ketones Negative (Negative) Urine Blood Negative (Negative) Urine Nitrite Negative (Negative) Urine Bilirubin Negative (Negative) Urine Urobilinogen <2.0 (<2.0) mg/dL Ur Leukocyte Esterase Trace H (Negative) Urine RBC 3 (0-5) /hpf Urine WBC 2 (0-5) /hpf Urine Bacteria Rare H (None) /hpf Disposition Clinical Impression: Fever Disposition: HOME SELF-CARE Condition: Stable Instructions (If sedation given, give patient instructions): Fever in Adults (ED) Additional Instructions: [id number] Tylenol or Motrin as needed. Return for difficulty breathing, rash, abdominal pain, confusion, worsening symptoms or other concerns. Please follow-up with your primary care physician in the next day or 2 for recheck. Is patient prescribed a controlled substance at d/c from ED?: No Referrals: Carrie Izaguirre MD [Primary Care Provider] - 1-2 days Time of Disposition: 16:34
[2019-07-11] MEDS ORDERED: SODIUM CHLORIDE 0.9% 500 ML 500 ML IV SCH (12:45)
[2019-07-11 13:13] LABS: Basophils % (A) 1 %; Eosinophils # (A) 0.1 k/uL (0-0.7); Eosinophils % (A) 2 %; HCT 41.3 % (39.0-53.0); HGB 14.3 gm/dL (13.0-17.5); Lymphocytes # (A) 0.5 k/uL (1.0-4.8); Lymphocytes % (A) 14 %; MCH 33.5 pg (25.0-35.0); MCHC 34.5 g/dL (31.0-37.0); MCV 96.9 fL (80.0-100.0); Mean Platelet Volume 7.6; Monocytes # (A) 0.2 k/uL (0-1.0); Monocytes % (A) 7 %; Neutrophils # (A) 2.6 k/uL (1.3-7.7); Neutrophils % (A) 75 %; RBC 4.26 m/uL (4.30-5.90); RDW 15.3 % (11.5-15.5); WBC 3.4 k/uL (3.8-10.6)
[2019-07-11 13:15] LABS: Albumin 4.6 g/dL (3.5-5.0); Calcium 9.5 mg/dL (8.4-10.2); Potassium 4.8 mmol/L (3.5-5.1); Total Bilirubin 1.4 mg/dL (0.2-1.3); Total Protein 7.7 g/dL (6.3-8.2)
[2019-07-11] MEDS: ACETAMINOPHEN TAB 500 MG TAB PO STA ×2 (13:31→13:32)
[2019-07-11 13:34] LABS: Partial Thromboplastin Time 23.3 sec (22.0-30.0)
[2019-07-11 13:38] LABS: Platelet Count 72 k/uL (150-450)
--- NOTE | 2019-07-11 14:04 | XR ---
EXAMINATION TYPE: XR chest 2V DATE OF EXAM: 07/11/2019 COMPARISON: 02/28/2019 HISTORY: Fever TECHNIQUE: Frontal and lateral views of the chest are obtained. FINDINGS: There is no heart failure nor confluent pneumonic infiltrate. Costophrenic angles are gumaro r. Heart size is normal. There are chest leads. IMPRESSION: No cardiopulmonary disease. No change.
[2019-07-11 14:08] VITALS: PULSE 68; RESP 18
[2019-07-11 14:11] LABS: Appearance,Urine Clear (Clear); Bacteria,Urine Rare /hpf; Bilirubin,Urine Negative (Negative); Blood,Urine Negative (Negative); Color,Urine Yellow; Glucose,Urine (UA) Negative (Negative); Ketones,Urine Negative (Negative); Leukocyte Esterase,Urine Trace (Negative); Nitrite,Urine Negative (Negative); Protein,Urine Negative (Negative); RBC,Urine 3 /hpf (0-5); Specific Gravity,Urine 1.019 (1.001-1.035); Urobilinogen,Urine <2.0 mg/dL (<2.0); WBC,Urine 2 /hpf (0-5)
--- NOTE | 2019-07-11 15:56 | US ---
EXAMINATION TYPE: US gallbladder DATE OF EXAM: 07/11/2019 COMPARISON: NONE CLINICAL HISTORY: Pain. EXAM MEASUREMENTS: Liver Length: 17.8 cm Gallbladder Wall: 0.2 cm CBD: 0.3 cm Right Kidney: 11.3 x 5.2 x 5.0 cm Pancreas: partially obscured by bowel gas, portions visualized wnl Liver: upper limits of normal in size, attenuating Gallbladder: wnl Evidence for sonographic Pettit's sign: no CBD: wnl Right Kidney: wnl IMPRESSION: There is probably some fatty infiltration of the liver.. No gallstones or dilated ducts.
[2019-07-11 16:40] VITALS: BP 112/64; TEMP 98.9
== END 2019-07-11 16:59 | disposition home or self-care (01) ==
LOC: EC 12:16
DX: R50.9 Fever, unspecified (principal); R05 Cough; I25.119 Atherosclerotic heart disease of native coronary artery with unspecified angina pectoris; I11.0 Hypertensive heart disease with heart failure; I50.20 Unspecified systolic (congestive) heart failure; E11.9 Type 2 diabetes mellitus without complications; E78.5 Hyperlipidemia, unspecified; I25.2 Old myocardial infarction; Z79.82 Long term (current) use of aspirin; Z79.02 Long term (current) use of antithrombotics/antiplatelets; Z79.4 Long term (current) use of insulin; Z79.899 Other long term (current) drug therapy; Z87.891 Personal history of nicotine dependence; Z95.5 Presence of coronary angioplasty implant and graft; Z96.653 Presence of artificial knee joint, bilateral
CPT/HCPCS: 36415; 71046; 76705; 80053; 81001; 83605; 85025; 85610; 85730; 87040; 87086; 93005; 96360; 99284

== ENCOUNTER 2020-01-13 09:33 | Emergency (ER) | payer MEDICARE ==
[2020-01-13] MEDS ORDERED: SODIUM CHLORIDE 0.9% 1,000 ML IV STA ×2 (09:41→10:44)
[2020-01-13 09:43] VITALS: RESP 18
--- NOTE | 2020-01-13 09:44 | ED ---
General Adult HPI - General Stated complaint: Fever, cough Time Seen by Provider: 01/13/20 09:33 Source: patient, EMS, RN notes reviewed Mode of arrival: EMS - History of Present Illness Initial comments: This is a 74-year-old male with no prior history of COPD emphysema or lung disease who presents by EMS with complaints of one week of nonproductive cough but he started developing a fever up to 104 this morning he also states she's been coughing somewhat she's had bilateral flank pain feels and rhinorrhea no earaches no sore throat. No overt chest pain other than the flank pain from coughing no abdominal pain no peripheral edema no other modifying factors at this time - Related Data Home Medications Medication Instructions Recorded Confirmed Allopurinol [Zyloprim] 300 mg PO DAILY 06/07/14 07/11/19 Insulin NPH Hum/Reg Insulin Hm 10 unit SQ AC-SUPPER 06/07/14 07/11/19 [NovoLIN 70-30 100 UNIT/ML VIAL] Isosorbide Mononitrate [Imdur] 30 mg PO DAILY 06/07/14 07/11/19 metFORMIN HCL 1,000 mg PO BID 06/07/14 07/11/19 Ferrous Sulfate [Iron (65 MG 325 mg PO DAILY 03/07/16 07/11/19 Elemental)] Atorvastatin [Lipitor] 20 mg PO HS 07/21/17 07/11/19 Aspirin 325 mg PO DAILY 10/20/18 07/11/19 Carvedilol [Coreg] 12.5 mg PO BID 07/11/19 07/11/19 Furosemide [Lasix] 20 mg PO DAILY 07/11/19 07/11/19 Magnesium Oxide [Mag-Ox] 250 mg PO DAILY 07/11/19 07/11/19 Previous Rx's Medication Instructions Recorded Spironolactone [Aldactone] 25 mg PO DAILY #30 tab 03/09/16 Insulin NPH Hum/Reg Insulin Hm 20 unit SQ AC-BRKFST #0 07/29/17 [NovoLIN 70-30 100 UNIT/ML VIAL] Oseltamivir [Tamiflu] 75 mg PO Q12HR #10 cap 01/13/20 Allergies Allergy/AdvReac Type Severity Reaction Status Date / Time No Known Allergies Allergy Verified 07/11/19 13:04 Review of Systems ROS Statement: Those systems with pertinent positive or pertinent negative responses have been documented in the HPI. ROS Other: All systems not noted in ROS Statement are negative. Past Medical History Past Medical History: Coronary Artery Disease (CAD), Chest Pain / Angina, Heart Failure, COPD, Diabetes Mellitus, GERD/Reflux, Hyperlipidemia, Hypertension, Myocardial Infarction ([place]), Pneumonia, Supraventricular Tachycardia (SVT), Vascular Disorder Additional Past Medical History / Comment(s): Ischemic cardiomyopathy, nonsustained ventriclar arrhythmia, systolic heart failure, [place] x 2 in 2001 and 1994, thrombocytopenia, cellulitis 2ndary to local trauma L patella, kidney stones which pt believes he passed, gout bilateral feet/ toes, occasional bilateral tinnitis, past 3-4 years intermittent bilateral leg pain but pt states he now takes quinine when this occurs and has relief of pain. 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 Past Anesthesia/Blood Transfusion Reactions: No Reported Reaction Additional Past Anesthesia/Blood Transfusion Reaction / Comment(s): never had a blood tranfusion Date of Last Stent Placement:: 02/05/19 Past Psychological History: No Psychological Hx Reported Smoking Status: Former smoker Past Alcohol Use History: None Reported Past Drug Use History: None Reported - Past Family History Father History Unknown: Yes Additional Family Medical History / Comment(s): Pt does not know his father's history. His parents were when he was 6 yrs old. Mother History Unknown: Yes Family Medical History: Cancer Additional Family Medical History / Comment(s): Pt states mother had some form of cancer which she from at the age of 77yrs. General Exam - General Exam Comments Initial Comments: This is a well-developed well-nourished awake alert oriented 3 male General appearance: alert, in no apparent distress Head exam: Present: atraumatic, normocephalic, normal inspection Eye exam: Present: normal appearance, PERRL, EOMI. Absent: scleral icterus, conjunctival injection, periorbital swelling ENT exam: Present: mucous membranes moist, other (Boggy nasal mucosa with clear drainage minimal pharyngeal hyperemia no exudate seen) Neck exam: Present: normal inspection, full ROM, other. Absent: tenderness, meningismus, lymphadenopathy Respiratory exam: Present: normal lung sounds bilaterally. Absent: respiratory distress, wheezes, rales, rhonchi, stridor Cardiovascular Exam: Present: regular rate, normal rhythm, normal heart sounds. Absent: systolic murmur, diastolic murmur, rubs, gallop, clicks GI/Abdominal exam: Present: soft, normal bowel sounds. Absent: distended, tenderness, guarding, rebound, rigid Extremities exam: Present: normal inspection, full ROM, normal capillary refill. Absent: tenderness, pedal edema, joint swelling, calf tenderness Back exam: Present: normal inspection Neurological exam: Present: alert, oriented X3, CN II-XII intact Psychiatric exam: Present: normal affect, normal mood Skin exam: Present: warm, dry, intact, normal color. Absent: rash Course Vital Signs 01/13/20 01/13/20 01/13/20 09:38 10:03 10:51 Temperature 98.4 F 99.5 F Pulse Rate 80 79 Respiratory 18 18 18 Rate Blood Pressure 125/77 129/59 O2 Sat by Pulse 97 99 Oximetry EKG Findings - EKG Results: EKG: interpreted by ERICA, sinus rhythm (Sinus rhythm of 70. Interval 176 QRS duration 132 QT since QTC 390/453 red bundle-branch block nonspecific old inferior and anterior configuration) Medical Decision Making - Medical Decision Making I did discuss findings with patient family patient does demonstrate evidence of influenza type B some dehydration he will be placed on appropriate medications given IV fluids he feels much improved he will be discharged he is in agreement with this. - Lab Data Result diagrams: 01/13/20 09:44 01/13/20 09:44 Lab Results 01/13/20 01/13/20 01/13/20 Range/Units 09:44 09:44 09:44 WBC 4.2 (3.8-10.6) k/uL RBC 4.25 L (4.30-5.90) m/uL Hgb 14.0 (13.0-17.5) gm/dL Hct 41.2 (39.0-53.0) % MCV 96.8 (80.0-100.0) fL MCH 32.9 (25.0-35.0) pg MCHC 34.0 (31.0-37.0) g/dL RDW 13.8 (11.5-15.5) % Plt Count 73 L (150-450) k/uL Neutrophils % 71 % Lymphocytes % 16 % Monocytes % 7 % Eosinophils % 3 % Basophils % 1 % Neutrophils # 3.0 (1.3-7.7) k/uL Lymphocytes # 0.7 L (1.0-4.8) k/uL Monocytes # 0.3 (0-1.0) k/uL Eosinophils # 0.1 (0-0.7) k/uL Basophils # 0.0 (0-0.2) k/uL Manual Slide Review Performed PT (9.0-12.0) sec INR (<1.2) APTT (22.0-30.0) sec Sodium 135 L (137-145) mmol/L Potassium 4.3 (3.5-5.1) mmol/L Chloride 102 (98-107) mmol/L Carbon Dioxide 24 (22-30) mmol/L Anion Gap 9 mmol/L BUN 10 (9-20) mg/dL Creatinine 0.75 (0.66-1.25) mg/dL Est GFR (CKD-EPI)AfAm >90 (>60 ml/min/1.73 sqM) Est GFR (CKD-EPI)NonAf >90 (>60 ml/min/1.73 sqM) Glucose 160 H (74-99) mg/dL Plasma Lactic Acid Evgeny 2.3 H* (0.7-2.0) mmol/L Calcium 9.1 (8.4-10.2) mg/dL Magnesium 1.9 (1.6-2.3) mg/dL Total Bilirubin 1.5 H (0.2-1.3) mg/dL AST 47 (17-59) U/L ALT 34 (4-49) U/L Alkaline Phosphatase 92 (38-126) U/L Creatine Kinase 47 L (55-170) U/L Troponin I (0.000-0.034) ng/mL NT-Pro-B Natriuret Pep pg/mL Total Protein 7.2 (6.3-8.2) g/dL Albumin 4.3 (3.5-5.0) g/dL Influenza Type A RNA (Not Detectd) Influenza Type B (PCR) (Not Detectd) 01/13/20 01/13/20 01/13/20 Range/Units 09:44 09:44 09:44 WBC (3.8-10.6) k/uL RBC (4.30-5.90) m/uL Hgb (13.0-17.5) gm/dL Hct (39.0-53.0) % MCV (80.0-100.0) fL MCH (25.0-35.0) pg MCHC (31.0-37.0) g/dL RDW (11.5-15.5) % Plt Count (150-450) k/uL Neutrophils % % Lymphocytes % % Monocytes % % Eosinophils % % Basophils % % Neutrophils # (1.3-7.7) k/uL Lymphocytes # (1.0-4.8) k/uL Monocytes # (0-1.0) k/uL Eosinophils # (0-0.7) k/uL Basophils # (0-0.2) k/uL Manual Slide Review PT 10.4 (9.0-12.0) sec INR 1.0 (<1.2) APTT 23.5 (22.0-30.0) sec Sodium (137-145) mmol/L Potassium (3.5-5.1) mmol/L Chloride (98-107) mmol/L Carbon Dioxide (22-30) mmol/L Anion Gap mmol/L BUN (9-20) mg/dL Creatinine (0.66-1.25) mg/dL Est GFR (CKD-EPI)AfAm (>60 ml/min/1.73 sqM) Est GFR (CKD-EPI)NonAf (>60 ml/min/1.73 sqM) Glucose (74-99) mg/dL Plasma Lactic Acid Evgeny (0.7-2.0) mmol/L Calcium (8.4-10.2) mg/dL Magnesium (1.6-2.3) mg/dL Total Bilirubin (0.2-1.3) mg/dL AST (17-59) U/L ALT (4-49) U/L Alkaline Phosphatase (38-126) U/L Creatine Kinase (55-170) U/L Troponin I <0.012 (0.000-0.034) ng/mL NT-Pro-B Natriuret Pep 202 pg/mL Total Protein (6.3-8.2) g/dL Albumin (3.5-5.0) g/dL Influenza Type A RNA (Not Detectd) Influenza Type B (PCR) (Not Detectd) 01/13/20 Range/Units 09:44 WBC (3.8-10.6) k/uL RBC (4.30-5.90) m/uL Hgb (13.0-17.5) gm/dL Hct (39.0-53.0) % MCV (80.0-100.0) fL MCH (25.0-35.0) pg MCHC (31.0-37.0) g/dL RDW (11.5-15.5) % Plt Count (150-450) k/uL Neutrophils % % Lymphocytes % % Monocytes % % Eosinophils % % Basophils % % Neutrophils # (1.3-7.7) k/uL Lymphocytes # (1.0-4.8) k/uL Monocytes # (0-1.0) k/uL Eosinophils # (0-0.7) k/uL Basophils # (0-0.2) k/uL Manual Slide Review PT (9.0-12.0) sec INR (<1.2) APTT (22.0-30.0) sec Sodium (137-145) mmol/L Potassium (3.5-5.1) mmol/L Chloride (98-107) mmol/L Carbon Dioxide (22-30) mmol/L Anion Gap mmol/L BUN (9-20) mg/dL Creatinine (0.66-1.25) mg/dL Est GFR (CKD-EPI)AfAm (>60 ml/min/1.73 sqM) Est GFR (CKD-EPI)NonAf (>60 ml/min/1.73 sqM) Glucose (74-99) mg/dL Plasma Lactic Acid Evgeny (0.7-2.0) mmol/L Calcium (8.4-10.2) mg/dL Magnesium (1.6-2.3) mg/dL Total Bilirubin (0.2-1.3) mg/dL AST (17-59) U/L ALT (4-49) U/L Alkaline Phosphatase (38-126) U/L Creatine Kinase (55-170) U/L Troponin I (0.000-0.034) ng/mL NT-Pro-B Natriuret Pep pg/mL Total Protein (6.3-8.2) g/dL Albumin (3.5-5.0) g/dL Influenza Type A RNA Not Detected (Not Detectd) Influenza Type B (PCR) Detected H (Not Detectd) - Radiology Data Radiology results: report reviewed, image reviewed Disposition Clinical Impression: Influenza, Dehydration, Viral syndrome Disposition: HOME SELF-CARE Condition: Good Instructions (If sedation given, give patient instructions): Viral Syndrome (ED), Influenza (ED), Dehydration (ED) Additional Instructions: The prescription was sent here prefer to [facility] Prescriptions: Oseltamivir [Tamiflu] 75 mg PO Q12HR #10 cap Is patient prescribed a controlled substance at d/c from ED?: No Referrals: Carrie Izaguirre MD [Primary Care Provider] - 1-2 days
--- NOTE | 2020-01-13 10:29 | XR ---
EXAMINATION TYPE: XR chest 2V DATE OF EXAM: 01/13/2020 COMPARISON: 07/11/2019 INDICATION: Difficulty breathing fever short of breath cough TECHNIQUE: Frontal and lateral views of the chest are obtained. FINDINGS: The heart size is normal. The pulmonary vasculature is normal. Minimal infiltrates are in the lung bases greater on the right. Correlate for subsegmental atelectasi s or early pneumonia right middle lobe and lingula. Right shoulder prosthesis is evident. Prior surgery on the left shoulder is evident. IMPRESSION: 1. Mild bibasilar infiltrates. Atelectasis and early pneumonia are within the differential.
[2020-01-13 10:33] LABS: Basophils % (A) 1 %; Eosinophils # (A) 0.1 k/uL (0-0.7); Eosinophils % (A) 3 %; HCT 41.2 % (39.0-53.0); Lymphocytes # (A) 0.7 k/uL (1.0-4.8); Lymphocytes % (A) 16 %; MCH 32.9 pg (25.0-35.0); MCV 96.8 fL (80.0-100.0); Mean Platelet Volume 7.8; Monocytes # (A) 0.3 k/uL (0-1.0); Monocytes % (A) 7 %; Neutrophils % (A) 71 %; RBC 4.25 m/uL (4.30-5.90); RDW 13.8 % (11.5-15.5); WBC 4.2 k/uL (3.8-10.6)
[2020-01-13 10:35] LABS: ALT 34 U/L (4-49); AST 47 U/L (17-59); African American GFR (CKD) >90 (>60 ml/min/1.73 sqM); Albumin 4.3 g/dL (3.5-5.0); Alkaline Phosphatase 92 U/L (38-126); Anion Gap 9 mmol/L; Blood Urea Nitrogen 10 mg/dL (9-20); Calcium 9.1 mg/dL (8.4-10.2); Carbon Dioxide 24 mmol/L (22-30); Chloride 102 mmol/L (98-107); Creatine Kinase 47 U/L (55-170); Glucose 160 mg/dL (74-99); Magnesium 1.9 mg/dL (1.6-2.3); Non-African American GFR(CKD) >90 (>60 ml/min/1.73 sqM); Potassium 4.3 mmol/L (3.5-5.1); Sodium 135 mmol/L (137-145); Total Bilirubin 1.5 mg/dL (0.2-1.3); Total Protein 7.2 g/dL (6.3-8.2)
[2020-01-13 10:40] LABS: Partial Thromboplastin Time 23.5 sec (22.0-30.0); Prothrombin Time 10.4 sec (9.0-12.0)
[2020-01-13] MEDS ORDERED: OSELTAMIVIR 75 MG CAP PO STA (10:44)
[2020-01-13 11:17] LABS: Platelet Count 73 k/uL (150-450)
[2020-01-13 11:50] VITALS: BP 114/67; PULSE 87; TEMP 99
== END 2020-01-13 11:45 | disposition home or self-care (01) ==
LOC: EC 09:33
DX: J10.1 Influenza due to other identified influenza virus with other respiratory manifestations (principal); B34.9 Viral infection, unspecified; E86.0 Dehydration; E11.9 Type 2 diabetes mellitus without complications; E78.5 Hyperlipidemia, unspecified; I11.0 Hypertensive heart disease with heart failure; I50.20 Unspecified systolic (congestive) heart failure; I25.119 Atherosclerotic heart disease of native coronary artery with unspecified angina pectoris; I25.2 Old myocardial infarction; I25.5 Ischemic cardiomyopathy; M10.9 Gout, unspecified; Z79.4 Long term (current) use of insulin; Z79.82 Long term (current) use of aspirin; Z79.899 Other long term (current) drug therapy; Z87.891 Personal history of nicotine dependence; Z86.79 Personal history of other diseases of the circulatory system; Z95.5 Presence of coronary angioplasty implant and graft; Z96.653 Presence of artificial knee joint, bilateral
CPT/HCPCS: 36415; 71046; 80053; 82550; 83605; 83735; 83880; 84484; 85025; 85610; 85730; 87040; 87502; 93005; 96360; 96361; 99284

== ENCOUNTER 2020-08-24 20:05 | Inpatient (IN) | payer MEDICARE ==
[2020-08-24] MEDS ORDERED: SODIUM CHLORIDE 0.9% 1,000 ML IV STA (20:16)
--- NOTE | 2020-08-24 20:25 | ED ---
Chest Pain HPI - General Chief Complaint: Chest Pain Stated Complaint: Chest Pain Time Seen by Provider: 08/24/20 20:16 Source: patient, EMS, RN notes reviewed, old records reviewed Mode of arrival: EMS Limitations: no limitations - History of Present Illness Initial Comments: This is a 74-year-old male with significant cardiac history coming in for chest pain. Patient does have history of chest pain coming with persistent chest pain but much worse with exertion. No recent travel history or sick contacts. Again pain is with exertion much improved now he does get diaphoretic and short of breath MD Complaint: chest pain -: week(s) Onset: during exertion Pain Location: substernal, left chest Pain Radiation: LUE Severity: moderate Severity scale (1-10): 4 Quality: aching, heaviness Consistency: intermittent Improves With: nothing Worsens With: exertion Anginal Symptoms: diaphoresis, dyspnea - Related Data Home Medications Medication Instructions Recorded Confirmed Insulin NPH Hum/Reg Insulin Hm 10 unit SQ AC-SUPPER 06/07/14 08/24/20 [NovoLIN 70-30 100 UNIT/ML VIAL] Isosorbide Mononitrate [Imdur] 30 mg PO DAILY 06/07/14 08/24/20 allopurinoL [Zyloprim] 300 mg PO DAILY 06/07/14 08/24/20 metFORMIN HCL 1,000 mg PO BID 06/07/14 08/24/20 Ferrous Sulfate [Iron (65 MG 325 mg PO DAILY 03/07/16 08/24/20 Elemental)] Atorvastatin [Lipitor] 20 mg PO HS 07/21/17 08/24/20 Aspirin 325 mg PO DAILY 10/20/18 08/24/20 Carvedilol [Coreg] 12.5 mg PO BID 07/11/19 08/24/20 Furosemide [Lasix] 20 mg PO DAILY 07/11/19 08/24/20 Magnesium Oxide [Mag-Ox] 250 mg PO DAILY 07/11/19 08/24/20 Previous Rx's Medication Instructions Recorded Spironolactone [Aldactone] 25 mg PO DAILY #30 tab 03/09/16 Insulin NPH Hum/Reg Insulin Hm 20 unit SQ AC-BRKFST #0 07/29/17 [NovoLIN 70-30 100 UNIT/ML VIAL] Allergies Allergy/AdvReac Type Severity Reaction Status Date / Time No Known Allergies Allergy Verified 08/24/20 20:14 Review of Systems ROS Statement: Those systems with pertinent positive or pertinent negative responses have been documented in the HPI. ROS Other: All systems not noted in ROS Statement are negative. EKG Findings - EKG Comments: EKG Findings:: EKG shows sinus rhythm of 100, ND 180 QRS 120 QTc 500 Past Medical History Past Medical History: Coronary Artery Disease (CAD), Chest Pain / Angina, Heart Failure, COPD, Diabetes Mellitus, GERD/Reflux, Hyperlipidemia, Hypertension, Myocardial Infarction ([place]), Pneumonia, Supraventricular Tachycardia (SVT), Vascular Disorder Additional Past Medical History / Comment(s): Ischemic cardiomyopathy, nonsustained ventriclar arrhythmia, systolic heart failure, [place] x 2 in 2001 and 1994, thrombocytopenia, cellulitis 2ndary to local trauma L patella, kidney stones which pt believes he passed, gout bilateral feet/ toes, occasional bilateral tinnitis, past 3-4 years intermittent bilateral leg pain but pt states he now takes quinine when this occurs and has relief of pain. 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 Past Anesthesia/Blood Transfusion Reactions: No Reported Reaction Additional Past Anesthesia/Blood Transfusion Reaction / Comment(s): never had a blood tranfusion Date of Last Stent Placement:: 02/05/19 Past Psychological History: No Psychological Hx Reported Smoking Status: Former smoker Past Alcohol Use History: None Reported Past Drug Use History: None Reported - Past Family History Father History Unknown: Yes Additional Family Medical History / Comment(s): Pt does not know his father's history. His parents were when he was 6 yrs old. Mother History Unknown: Yes Family Medical History: Cancer Additional Family Medical History / Comment(s): Pt states mother had some form of cancer which she from at the age of 77yrs. General Exam Limitations: no limitations General appearance: alert, in no apparent distress Head exam: Present: atraumatic, normocephalic, normal inspection Eye exam: Present: normal appearance, PERRL, EOMI. Absent: scleral icterus, conjunctival injection, periorbital swelling ENT exam: Present: normal exam, mucous membranes moist Neck exam: Present: normal inspection. Absent: tenderness, meningismus, lymphadenopathy Respiratory exam: Present: normal lung sounds bilaterally. Absent: respiratory distress, wheezes, rales, rhonchi, stridor Cardiovascular Exam: Present: regular rate, normal rhythm, normal heart sounds. Absent: systolic murmur, diastolic murmur, rubs, gallop, clicks GI/Abdominal exam: Present: soft, normal bowel sounds. Absent: distended, tenderness, guarding, rebound, rigid Extremities exam: Present: normal inspection, full ROM, normal capillary refill. Absent: tenderness, pedal edema, joint swelling, calf tenderness Back exam: Present: normal inspection Neurological exam: Present: alert, oriented X3, CN II-XII intact Psychiatric exam: Present: normal affect, normal mood Skin exam: Present: warm, dry, intact, normal color. Absent: rash Course Vital Signs 08/24/20 08/24/20 20:11 21:49 Pulse Rate 105 H 91 Respiratory 16 18 Rate Blood Pressure 136/75 118/69 O2 Sat by Pulse 97 99 Oximetry - Reevaluation(s) Reevaluation #1: 08/24/20 22:30 Medical record is reviewed Reevaluation #2: 08/24/20 22:30 Patient has no significant current chest pain but he states with exertion is significantly worse Reevaluation #3: 08/24/20 22:30 Spoke with patient regarding findings, he is agreeable to be admitted and questions are answered - Consultations Consultation #1: Spoke with [facility] agrees to admit Chest Pain MDM - [facility] 74 male history of multiple cardiac stents coming with chest pain today will be admitted for ACS, rule out chest pain observation Critical Care Time Critical Care Time: Yes Total Critical Care Time: 31 Disposition Clinical Impression: Chest pain Disposition: ADMITTED IP TO THIS [facility] Condition: Undetermined Instructions (If sedation given, give patient instructions): Chest Pain (ED) Is patient prescribed a controlled substance at d/c from ED?: No Referrals: Carrie Izaguirre MD [Primary Care Provider] - 1-2 days
[2020-08-24 20:47] LABS: ALT 34 U/L (4-49); AST 65 U/L (17-59); African American GFR (CKD) >90 (>60 ml/min/1.73 sqM); Alkaline Phosphatase 112 U/L (38-126); Anion Gap 9 mmol/L; Blood Urea Nitrogen 10 mg/dL (9-20); Calcium 9.3 mg/dL (8.4-10.2); Carbon Dioxide 24 mmol/L (22-30); Chloride 106 mmol/L (98-107); Creatine Kinase 47 U/L (55-170); Glucose 181 mg/dL (74-99); Magnesium 1.8 mg/dL (1.6-2.3); Non-African American GFR(CKD) 89 (>60 ml/min/1.73 sqM); Potassium 4.4 mmol/L (3.5-5.1); Sodium 139 mmol/L (137-145); Total Bilirubin 1.2 mg/dL (0.2-1.3); Total Protein 6.7 g/dL (6.3-8.2)
[2020-08-24 20:51] LABS: Partial Thromboplastin Time 23.5 sec (22.0-30.0); Prothrombin Time 10.6 sec (9.0-12.0)
[2020-08-24 21:01] LABS: Basophils % (A) 1 %; Eosinophils # (A) 0.1 k/uL (0-0.7); Eosinophils % (A) 3 %; HCT 40.5 % (39.0-53.0); HGB 13.6 gm/dL (13.0-17.5); Lymphocytes # (A) 1.1 k/uL (1.0-4.8); Lymphocytes % (A) 28 %; MCH 33.2 pg (25.0-35.0); MCHC 33.6 g/dL (31.0-37.0); MCV 98.9 fL (80.0-100.0); Monocytes # (A) 0.3 k/uL (0-1.0); Monocytes % (A) 7 %; Neutrophils # (A) 2.4 k/uL (1.3-7.7); Neutrophils % (A) 60 %; RDW 14.2 % (11.5-15.5)
--- NOTE | 2020-08-24 21:38 | XR ---
EXAMINATION TYPE: XR chest 2V DATE OF EXAM: 08/24/2020 COMPARISON: 01/13/2020 HISTORY: Cough TECHNIQUE: FINDINGS: There is no heart failure nor confluent pneumonic infiltrate. There is right shoulder prost hesis. Costophrenic angles are clear. IMPRESSION: No active cardiopulmonary disease. Normal heart. No change.
[2020-08-24 22:02] LABS: Anisocytosis (M) Present
[2020-08-24 22:03] LABS: Polychromasia Present
[2020-08-24 22:04] LABS: Platelet Count 74 k/uL (150-450)
[2020-08-24] MEDS ORDERED: ASPIRIN 81 MG PO STA (22:27)
[2020-08-24] MEDS ORDERED: HEPARIN SODIUM,PORCINE 5,000 UNIT/ML 1 ML VIAL IV PRN (22:27)
[2020-08-24] MEDS ORDERED: HEPARIN SODIUM,PORCINE 5,000 UNIT/ML 1 ML VIAL IV ONE (22:27)
[2020-08-24] MEDS ORDERED: NITROGLYCERIN SL TABS 0.4 MG TAB SUBLINGUAL PRN (22:27)
[2020-08-24] MEDS ORDERED: HEPARIN SOD,PORK IN 0.45% NACL 25,000 UNIT in 0.45% NACL 1 250ML.BAG IV SCH (22:30)
[2020-08-25] MEDS ORDERED: MORPHINE SULFATE 4 MG/ML SYRINGE IV PRN
[2020-08-25 06:34] LABS: Mean Platelet Volume 8.5
[2020-08-25 06:49] LABS: Cholesterol 112 mg/dL (<200); HDL Cholesterol 24 mg/dL (40-60); Triglycerides 496 mg/dL (<150)
[2020-08-25 06:51] LABS: Platelet Count 59 k/uL (150-450)
[2020-08-25] MEDS ORDERED: ASPIRIN 325 MG TAB PO STA (09:09)
[2020-08-25] MEDS ORDERED: NITROGLYCERIN SL TABS 0.4 MG TAB SUBLINGUAL PRN (09:09)
[2020-08-25] MEDS ORDERED: ATORVASTATIN 80 MG TAB PO STA (09:09)
[2020-08-25] MEDS ORDERED: ALPRAZolam 0.25 MG TAB PO PRN (09:09)
[2020-08-25] MEDS ORDERED: ALPRAZolam 0.5 MG TAB PO PRN (09:09)
[2020-08-25] MEDS ORDERED: SODIUM CHLORIDE 0.9% 1,000 ML in EMPTY BAG 1 BAG IV ONE (09:09)
[2020-08-25] MEDS: METOPROLOL TARTRATE 25 MG TAB PO SCH ×2 (09:35→20:27)
[2020-08-25] MEDS: ASPIRIN 325 MG TAB PO SCH (09:36)
[2020-08-25] MEDS: ATORVASTATIN 80 MG TAB PO SCH (09:36)
--- NOTE | 2020-08-25 10:01 | P.CRDCN ---
History of Present Illness Consult date: 08/25/20 History of present illness: CHIEF COMPLAINT: Chest pain HISTORY OF PRESENT ILLNESS: This is a 74-year old male with a past medical history significant for coronary artery disease with multiple stent placements, diabetes mellitus, hypertension, hyperlipidemia, COPD, and heart failure. Patient follows in the office with Dr. Morrow. We have been asked to see the patient in consultation for chest pain. Patient examined this morning in the emergency room. Patient states he began having chest pain yesterday when he was walking around his house. He reports approximate 4 episodes of chest pain yesterday throughout the afternoon. All of these episodes occurred with exertion. He also reports shortness of breath. The patient states he walked to the bathroom this morning located across the [place] from his room in the emergency room and he had chest pain as he was in relating back to his room. The patient underwent cardiac cath in January 2019 which did not reveal evidence of restenosis of his previous stents. He was also found to have [id number] disease of the circumflex and LAD. DIAGNOSTICS: EKG reveals sinus rhythm with right bundle branch block. Chest xray no active cardiopulmonary process. Laboratory data: WBC 4.0. Hemoglobin 13.6. Platelet Count 74. Sodium 139. Potassium 4.4. BUN 10. Creatinine 0.81. Troponin negative 3. BNP 172. Current home cardiac medications include Aldactone 25 mg daily, Imdur 30 mg daily, Lasix 20 mg daily, Coreg 12.5 mg twice a day, Lipitor 20 mg daily, and aspirin 325 mg daily. REVIEW OF SYSTEMS: At the time of my exam: CONSTITUTIONAL: Denies fever or chills. HEENT: Denies blurred vision, vision changes, or eye pain. Denies hemoptysis CARDIOVASCULAR: Reports chest pain. Denies orthopnea, PND or palpitations RESPIRATORY: No shortness of breath. GASTROINTESTINAL: Denies abdominal pain. Denies nausea or vomiting. HEMATOLOGIC: Denies bleeding disorders. GENITOURINARY: Denies any blood in urine. SKIN: Denies pruitis. Denies rash. PHYSICAL EXAM: VITAL SIGNS: Reviewed. GENERAL: Well-developed in no acute distress. HEENT: Head is normocephalic. Pupils are equal, round. Sclerae anicteric. Mucous membranes of the mouth are moist. Neck supple. No JVD or thyromegaly LUNGS: Respirations even and unlabored. Lungs diminished. HEART: Regular rate and rhythm. S1 and S2 heard. ABDOMEN: Soft. Nondistended. Nontender. EXTREMITIES: Normal range of motion. No clubbing or cyanosis. Peripheral p ulses intact. Trace bilateral lower extremity edema NEUROLOGIC: Awake and alert. Oriented x 3. ASSESSMENT: Unstable angina History of coronary artery disease with multiple previous PCI Diabetes mellitus, type II, uncontrolled Hypertriglyceridemia Hyperlipidemia Hypertension Ischemic cardiomyopathy, EF 35-40% Chronic systolic congestive heart failure, currently euvolemic COPD Obesity: BMI 40.7 PLAN: Resume home cardiac medications Obtain 2-D echo to assess cardiac structure and function Recommend tight blood sugar control for elevated triglycerides. If triglyceride levels do not improve with tighter control of blood sugars, may consider Tricor Patient to undergo cardiac catheterization today with Dr. Morrow secondary to unstable angina Nurse practitioner note has been reviewed by physician. Signing provider agrees with the documented findings, assessment, and plan of care. Past Medical History Past Medical History: Coronary Artery Disease (CAD), Chest Pain / Angina, Heart Failure, COPD, Diabetes Mellitus, GERD/Reflux, Hyperlipidemia, Hypertension, Myocardial Infarction (DC), Pneumonia, Supraventricular Tachycardia (SVT), Vascular Disorder Additional Past Medical History / Comment(s): Ischemic cardiomyopathy, nonsustained ventriclar arrhythmia, systolic heart failure, DC x 2 in 2001 and 1994, thrombocytopenia, cellulitis 2ndary to local trauma L patella, kidney stones which pt believes he passed, gout bilateral feet/ toes, occasional bilate ral tinnitis, past 3-4 years intermittent bilateral leg pain but pt states he now takes quinine when this occurs and has relief of pain. 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 Past Anesthesia/Blood Transfusion Reactions: No Reported Reaction Additional Past Anesthesia/Blood Transfusion Reaction / Comment(s): never had a blood tranfusion Date of Last Stent Placement:: 03/15/19 Past Psychological History: No Psychological Hx Reported Smoking Status: Former smoker Past Alcohol Use History: None Reported Past Drug Use History: None Reported - Past Family History Father History Unknown: Yes Additional Family Medical History / Comment(s): Pt does not know his father's history. His parents were when he was 6 yrs old. Mother History Unknown: Yes Family Medical History: Cancer Additional Family Medical History / Comment(s): Pt states mother had some form of cancer which she from at the age of 77yrs. Medications and Allergies Home Medications Medication Instructions Recorded Confirmed Type Insulin NPH Hum/Reg Insulin Hm 10 unit SQ AC-SUPPER 06/07/14 08/24/20 History [NovoLIN 70-30 100 UNIT/ML VIAL] Isosorbide Mononitrate [Imdur] 30 mg PO DAILY 06/07/14 08/24/20 History allopurinoL [Zyloprim] 300 mg PO DAILY 06/07/14 08/24/20 History metFORMIN HCL 1,000 mg PO BID 06/07/14 08/24/20 History Ferrous Sulfate [Iron (65 MG 325 mg PO DAILY 03/07/16 08/24/20 History Elemental)] Spironolactone [Aldactone] 25 mg PO DAILY #30 tab 03/09/16 08/24/20 Rx Atorvastatin [Lipitor] 20 mg PO HS 07/21/17 08/24/20 History Insulin NPH Hum/Reg Insulin Hm 20 unit SQ AC-BRKFST #0 07/29/17 08/24/20 Rx [NovoLIN 70-30 100 UNIT/ML VIAL] Aspirin 325 mg PO DAILY 10/20/18 08/24/20 History Carvedilol [Coreg] 12.5 mg PO BID 07/11/19 08/24/20 History Furosemide [Lasix] 20 mg PO DAILY 07/11/19 08/24/20 History Magnesium Oxide [Mag-Ox] 250 mg PO DAILY 07/11/19 08/24/20 History Allergies Allergy/AdvReac Type Severity Reaction Status Date / Time No Known Allergies Allergy Verified 08/24/20 20:14 Physical Exam Vitals: Vital Signs Temp Pulse Resp BP Pulse Ox 08/25/20 09:43 65 18 122/65 97 08/25/20 07:06 97.7 F 79 16 114/57 97 08/25/20 01:22 97.4 F L 90 20 154/79 97 08/25/20 00:33 97.9 F 88 16 112/74 98 08/24/20 21:49 91 18 118/69 99 08/24/20 20:11 105 H 16 136/75 97 Intake and Output 08/24/20 08/25/20 08/25/20 22:59 06:59 14:59 Intake Total 85.342 Balance 85.342 Intake: Intake, IV Titration 85.342 Amount Heparin Sod,Pork in 0.45% 85.342 NaCl 25,000 unit In 0.45 % NaCl 1 250ml.bag @ 8.48 UNITS/KG/HR 10.001 mls/ hr IV .Q24H [facility] Rx#: [id number] Other: Weight 117.934 kg Results 08/25/20 05:30 08/24/20 20:30 Cardiac Enzymes 08/24/20 08/24/20 08/24/20 Range/Units 20:30 20:30 23:14 AST 65 H (17-59) U/L Troponin I <0.012 <0.012 (0.000-0.034) ng/mL 08/25/20 Range/Units 02:35 AST (17-59) U/L Troponin I <0.012 (0.000-0.034) ng/mL Coagulation 08/24/20 08/25/20 Range/Units 20:30 05:30 PT 10.6 (9.0-12.0) sec APTT 23.5 31.1 H (22.0-30.0) sec Lipids 08/25/20 Range/Units 05:30 Triglycerides 496 H (<150) mg/dL Cholesterol 112 (<200) mg/dL HDL Cholesterol 24 L (40-60) mg/dL CBC 08/24/20 08/25/20 Range/Units 20:30 05:30 WBC 4.0 (3.8-10.6) k/uL RBC 4.10 L (4.30-5.90) m/uL Hgb 13.6 (13.0-17.5) gm/dL Hct 40.5 (39.0-53.0) % Plt Count 74 L 59 L (150-450) k/uL Comprehensive Metabolic Panel 08/24/20 Range/Units 20:30 Sodium 139 (137-145) mmol/L Potassium 4.4 (3.5-5.1) mmol/L Chloride 106 (98-107) mmol/L Carbon Dioxide 24 (22-30) mmol/L BUN 10 (9-20) mg/dL Creatinine 0.81 (0.66-1.25) mg/dL Glucose 181 H (74-99) mg/dL Calcium 9.3 (8.4-10.2) mg/dL AST 65 H (17-59) U/L ALT 34 (4-49) U/L Alkaline Phosphatase 112 (38-126) U/L Total Protein 6.7 (6.3-8.2) g/dL Albumin 4.0 (3.5-5.0) g/dL Current Medications Generic Name Dose Route Start Last Admin Trade Name Freq PRN Reason Stop Dose Admin Alprazolam 0.25 mg 08/25/20 09:09 Alprazolam 0.25 Mg Tab PO Q6HR PRN Mild Anxiety Alprazolam 0.5 mg 08/25/20 09:09 Alprazolam 0.5 Mg Tab PO Q6HR PRN Moderate Anxiety Aspirin 325 mg 08/25/20 09:00 08/25/20 09:36 Aspirin 325 Mg Tab PO 325 mg DAILY BRINDA Administration Atorvastatin Calcium 80 mg 08/25/20 09:00 08/25/20 09:36 Atorvastatin 80 Mg Tab PO 80 mg DAILY BRINDA Administration Heparin Sodium (Porcine) 0 unit 08/24/20 22:27 08/25/20 07:31 Heparin Sodium,Porcine 5,000 Unit/Ml 1 Ml Vial IV 4,000 unit Q6HR PRN Administration Low PTT Protocol Heparin Sodium/Sodium Chloride 250 mls @ 10.001 mls/hr 08/24/20 22:30 08/25/20 07:33 25,000 unit/ Sodium Chloride IV 08/25/20 11:00 11.48 units/kg/hr .Q24H BRINDA 13.539 mls/hr Titration Protocol 8.48 UNITS/KG/HR Sodium Chloride 1,000 ml/ IV 1,000 mls @ 117.934 mls/hr 08/25/20 09:09 Solution IV 08/25/20 17:37 .Q8H29M ONE 1 ML/KG/HR Metoprolol Tartrate 25 mg 08/25/20 09:00 08/25/20 09:35 Metoprolol Tartrate 25 Mg Tab PO 25 mg BID BRINDA Administration Morphine Sulfate 4 mg 08/25/20 00:00 Morphine Sulfate 4 Mg/Ml Syringe IV Q4HR PRN Chest Pain Nitroglycerin 0.4 mg 08/24/20 22:27 Nitroglycerin Sl Tabs 0.4 Mg Tab SUBLINGUAL Q5M PRN Chest Pain Intake and Output 08/24/20 08/25/20 08/25/20 22:59 06:59 14:59 Intake Total 85.342 Balance 85.342 Intake: Intake, IV Titration 85.342 Amount Heparin Sod,Pork in 0.45% 85.342 NaCl 25,000 unit In 0.45 % NaCl 1 250ml.bag @ 8.48 UNITS/KG/HR 10.001 mls/ hr IV .Q24H [facility] Rx#: [id number] Other: Weight 117.934 kg 08/25/20 05:30 08/24/20 20:30
--- NOTE | 2020-08-25 10:11 | ECHOF ---
Referral Reason:chest pain, lv function MEASUREMENTS -------- HEIGHT: 170.2 cm WEIGHT: 117.9 kg BP: 114/51 RVIDd: 3.2 cm (< 3.3) IVSd: 1.1 cm (0.6 - 1.1) LVIDd: 5.8 cm (3.9 - 5.3) LVPWd: 1.7 cm (0.6 - 1.1) IVSs: 1.5 cm LVIDs: 4.5 cm LVPWs: 2.2 cm LA Diam: 4.5 cm (2.7 - 3.8) Ao Diam: 2.8 cm (2.0 - 3.7) AV Cusp: 1.9 cm (1.5 - 2.6) MV EXCURSION: 13.601 mm (> 18.000) MV EF SLOPE: 56 mm/s (70 - 150) EPSS: 1.2 cm MV E Venkat: 0.54 m/s MV DecT: 330 ms MV A Venkat: 0.80 m/s MV E/A Ratio: 0.67 RAP: 5.00 mmHg RVSP: 26.25 mmHg FINDINGS -------- Morbid Obesity This was a techncally difficult study with suboptimal views, , Lumason utilized for enhancement of im ages. The left ventricular size is normal. Overall left ventricular systolic function is moderately impai red with, an EF between 35 - 40 %. Inferior Hypokinesis The right ventricle is normal in size. The left atrium is mildly dilated. The right atrial size is normal. 5.0mg OF Lumason UTLIZED: 2 OR MORE WALL SEGMENTS NOT VISUALIZED. The aortic valve is trileaflet, and appears structurally normal. No aortic stenosis or regurgitation. Mild mitral regurgitation is present. Mild tricuspid regurgitation present. Right ventricular systolic pressure is normal at < 35 mmHg. The pulmonic valve was not well visualized. The aortic root size is normal. There is a trivial pericardial effusion present. CONCLUSIONS -------- 1. Morbid Obesity 2. This was a techncally difficult study with suboptimal views, , Lumason utilized for enhancement of images. 3. The left ventricular size is normal. 4. Overall left ventricular systolic function is moderately impaired with, an EF between 35 - 40 %. 5. Inferior Hypokinesis 6. The right ventricle is normal in size. 7. The left atrium is mildly dilated. 8. The right atrial size is normal. 9. 5.0mg OF Lumason UTLIZED: 2 OR MORE WALL SEGMENTS NOT VISUALIZED. 10. Mild mitral regurgitation is present. 11. Mild tricuspid regurgitation present. 12. The pulmonic valve was not well visualized. 13. The aortic root size is normal. 14. There is a trivial pericardial effusion present. PAPER CUP HANDLE MACHINE OPERATOR: Radha Gilmore RDCS
[2020-08-25 11:15] LABS: Basophils % (A) 1 %; Eosinophils # (A) 0.1 k/uL (0-0.7); Eosinophils % (A) 3 %; HCT 40.5 % (39.0-53.0); HGB 13.2 gm/dL (13.0-17.5); Lymphocytes # (A) 0.9 k/uL (1.0-4.8); Lymphocytes % (A) 33 %; MCH 32.7 pg (25.0-35.0); MCHC 32.6 g/dL (31.0-37.0); MCV 100.3 fL (80.0-100.0); Macrocytosis Slight; Mean Platelet Volume 7.6; Monocytes # (A) 0.2 k/uL (0-1.0); Monocytes % (A) 6 %; Neutrophils # (A) 1.5 k/uL (1.3-7.7); Neutrophils % (A) 56 %; RBC 4.04 m/uL (4.30-5.90); RDW 13.8 % (11.5-15.5); WBC 2.7 k/uL (3.8-10.6)
[2020-08-25 11:17] LABS: ALT 38 U/L (4-49); AST 61 U/L (17-59); African American GFR (CKD) >90 (>60 ml/min/1.73 sqM); Albumin 4.1 g/dL (3.5-5.0); Alkaline Phosphatase 129 U/L (38-126); Anion Gap 5 mmol/L; Blood Urea Nitrogen 13 mg/dL (9-20); Calcium 9.2 mg/dL (8.4-10.2); Carbon Dioxide 29 mmol/L (22-30); Chloride 105 mmol/L (98-107); Glucose 194 mg/dL (74-99); Non-African American GFR(CKD) 90 (>60 ml/min/1.73 sqM); Potassium 4.4 mmol/L (3.5-5.1); Sodium 139 mmol/L (137-145); Total Bilirubin 1.2 mg/dL (0.2-1.3); Total Protein 7.3 g/dL (6.3-8.2)
[2020-08-25 11:23] LABS: Platelet Count 60 k/uL (150-450)
[2020-08-25] MEDS ORDERED: MIDAZOLAM 2 MG/2 ML VIAL IVP ONE (13:05)
[2020-08-25] MEDS ORDERED: LIDOCAINE 1% INJ 10MG/ML (20 ML MDV) SQ ONE (13:06)
[2020-08-25] MEDS: VERAPAMIL SYRINGE (5 MG/10 ML) INTRAARTER ONE ×2 (13:07→13:18)
[2020-08-25] MEDS ORDERED: IV FLUID CONTINUATION 1,000 ML IV ONE (13:08)
[2020-08-25] MEDS ORDERED: IOPAMIDOL-370 125ML BTL INJ ONE (13:30)
[2020-08-25] MEDS ORDERED: RX INFO: IV CONTRAST WAS GIVEN 1 EACH MISC MISCELLANE PRN (13:32)
[2020-08-25] MEDS ORDERED: SODIUM CHLORIDE 0.9% 1,000 ML IV SCH (13:45)
[2020-08-25 17:02] LABS: Glucose,Whole Blood 142 mg/dL (75-99)
[2020-08-25] MEDS ORDERED: INSULN ASP PRT/INSULIN ASPART 100 UNIT/ML 10 ML VIAL SQ SCH (17:30)
--- NOTE | 2020-08-25 19:50 | CC ---
CARDIAC CATHETERIZATION REPORT DATE OF SERVICE: August 25, 2020 PERFORMING PHYSICIAN: Ankur Morrow MD. PROCEDURE PERFORMED: 1. Selective right and left coronary angiogram. 2. Left heart catheterization. INDICATIONS: This is a very pleasant 74-year-old gentleman with coronary artery disease and prior coronary artery stenting as well as ischemic cardiomyopathy and hypertension and dyslipidemia who was admitted to the hospital with chest discomfort with exertion concerning for severe underlying coronary artery disease. Because of that, a heart catheterization was advised. APPROACH: Right radial artery. COMPLICATION: None. LEVEL OF SEDATION: Moderate with sedation length of 15 minutes. PROCEDURE DESCRIPTION: After obtaining informed consent, the patient was brought to cardiac landscape laborer. The right radial artery was cannulated using micropuncture technique, the micropuncture wire passed easily. Then I placed a 6-Marshallese sheath. After that, I gave the patient 2 mg of verapamil IA. Heparin was not given. Selective right and left coronary angiogram performed using JR4 and JL3.5 catheters. Left heart catheterization was performed using 6-Marshallese pigtail catheter. The procedure was completed without any complication. SELECTIVE CORONARY ANGIOGRAM: 1. The RCA is a large caliber vessel. It is a dominant vessel. The RCA is stented in the proximal portion and the stent is patent. Distally it is stented with mild to moderate in-stent restenosis appeared to be unchanged compared to before. The RCA, after that, bifurcates into PDA and PLV branches both appeared to be angiographically normal. 2. The left main is angiographically normal. It bifurcates into LCX and LAD. 3. The LCX is a large caliber vessel. It is a nondominant vessel. The circumflex is angiographically normal. 4. The LAD: The proximal LAD appeared to have mild disease only. The mid LAD appeared to have mild disease as well and gives rise into a large diagonal branch which seems to be normal and the LAD distally appeared to be normal. HEMODYNAMICS: The LVEDP was 10 to 12 mmHg without significant gradient across the aortic valve. CONCLUSION: 1. Mild to moderate nonobstructive disease involving the distal right coronary artery. 2. Mild disease involving the left coronary system. 3. Normal LVEDP. POSTPROCEDURE MANAGEMENT: Medical treatment. MMODL / IJN: [id number] /
[2020-08-26 06:42] LABS: Glucose,Whole Blood 153 mg/dL (75-99)
[2020-08-26] MEDS ORDERED: INSULN ASP PRT/INSULIN ASPART 100 UNIT/ML 10 ML VIAL SQ SCH (07:30)
[2020-08-26 07:48] LABS: Basophils % (A) 1 %; Eosinophils # (A) 0.1 k/uL (0-0.7); Eosinophils % (A) 3 %; HCT 40.1 % (39.0-53.0); HGB 12.8 gm/dL (13.0-17.5); Lymphocytes # (A) 0.8 k/uL (1.0-4.8); Lymphocytes % (A) 31 %; MCH 32.2 pg (25.0-35.0); MCHC 31.9 g/dL (31.0-37.0); Macrocytosis Slight; Mean Platelet Volume 7.8; Monocytes # (A) 0.1 k/uL (0-1.0); Monocytes % (A) 5 %; Neutrophils # (A) 1.5 k/uL (1.3-7.7); Neutrophils % (A) 60 %; RBC 3.97 m/uL (4.30-5.90); RDW 13.8 % (11.5-15.5); WBC 2.5 k/uL (3.8-10.6)
[2020-08-26 08:00] LABS: African American GFR (CKD) >90 (>60 ml/min/1.73 sqM); Anion Gap 5 mmol/L; Blood Urea Nitrogen 10 mg/dL (9-20); Carbon Dioxide 26 mmol/L (22-30); Chloride 107 mmol/L (98-107); Glucose 187 mg/dL (74-99); Non-African American GFR(CKD) >90 (>60 ml/min/1.73 sqM); Platelet Count 57 k/uL (150-450); Potassium 4.6 mmol/L (3.5-5.1); Sodium 138 mmol/L (137-145)
[2020-08-26 08:56] VITALS: BP 118/59; PULSE 65; RESP 16; TEMP 97.6
[2020-08-26] MEDS: METOPROLOL TARTRATE 25 MG TAB PO SCH (08:56)
[2020-08-26] MEDS: ATORVASTATIN 80 MG TAB PO SCH (08:56)
[2020-08-26] MEDS: ASPIRIN 325 MG TAB PO SCH (08:56)
[2020-08-26] MEDS ORDERED: ISOSORBIDE MONONITRATE ER 30 MG TAB.ER.24H PO SCH (09:00)
[2020-08-26] MEDS ORDERED: FUROSEMIDE 20 MG TAB PO SCH (09:00)
[2020-08-26] MEDS ORDERED: allopurinoL 300 MG TAB PO SCH (09:00)
[2020-08-26] MEDS ORDERED: SPIRONOLACTONE 25 MG TAB PO SCH (09:00)
--- NOTE | 2020-08-26 11:59 | PN ---
PROGRESS NOTE Mr. Johnson is a 74-year-old male who is followed on a regular basis with Dr. Morrow, who presented with symptoms of chest discomfort. He has a known history of coronary artery disease and prior percutaneous revascularization. He presented with symptoms of chest discomfort and Dr. Morrow proceeded to perform a cardiac catheterization yesterday that showed [id number] nonobstructive disease in the right coronary artery. He is doing well this morning. He has no significant symptoms. He denies any dizziness or palpitation. He denies any nausea. He has mild dyspnea. His echocardiogram revealed ejection fraction of 35%-40% with an inferior wall hypokinesis. MEDICATION: At this time include aspirin once a day, Lipitor 80 mg daily, Lasix 40 mg daily, isosorbide mononitrate 30 mg daily, insulin, metoprolol tartrate 25 mg twice a day, spironolactone 25 mg daily. PHYSICAL EXAMINATION: Blood pressure 118/59 with a heart rate in the 60s. LUNGS: Clear. HEART: Regular rate and rhythm S1, S2. No S3 with no rub, with a systolic murmur. ABDOMEN: Soft nontender. EXTREMITIES: With 1+ edema. Right radial pulse intact. LAB DATA: Revealed BUN creatinine 10 and 0.75, hemoglobin 12.8. IMPRESSION: 1. Symptoms of chest pain with no evidence of significant progression of disease. 2. Prior history of coronary artery disease with ischemic cardiomyopathy. 3. Diabetes. 4. Hyperlipidemia. RECOMMENDATION: Patient should be able to be discharged home today and followup as an outpatient with Dr. Morrow. I will add to his regimen an BENI inhibitor in view of his cardiomyopathy. MMODL / IJN: [id number] /
--- NOTE | 2020-08-26 12:09 | P.HPIM ---
History of Present Illness H&P Date: 08/25/20 Chief Complaint: Chest pain 74-year-old male with significant cardiac history coming in for chest pain. Patient does have history of chest pain coming with persistent chest pain but much worse with exertion. No recent travel history or sick contacts. Again pain is with exertion much improved now he does get diaphoretic and short of breath Workup in ED including an EKG revealed right bundle branch block, chest x-ray was unremarkable, lab review shows a white blood count of 4.0, hemoglobin 13.6 and platelet count of 74. Chemical profile shows sodium of 139, potassium 4.4, BUN 10 and creatinine of 0.81. Troponin negative so far with a BNP of 172 Patient is being admitted to the hospital for further cardiac evaluation Review of Systems REVIEW OF SYSTEMS: CONSTITUTIONAL: No fever, no malaise, no fatigue. HEENT: No recent visual problems or hearing problems. Denied any sore throat. CARDIOVASCULAR: chest pain, no orthopnea, PND, no palpitations, no syncope. PULMONARY: No shortness of breath, no cough, no hemoptysis. GASTROINTESTINAL: No diarrhea, no nausea, no vomiting, no abdominal pain. NEUROLOGICAL: No headaches, no weakness, no numbness. HEMATOLOGICAL: Denies any bleeding or petechiae. GENITOURINARY: Denies any burning micturition, frequency, or urgency. MUSCULOSKELETAL/RHEUMATOLOGICAL: Denies any joint pain, swelling, or any muscle pain. ENDOCRINE: Denies any polyuria or polydipsia. The rest of the 14-point review of systems is negative. Past Medical History Past Medical History: Coronary Artery Disease (CAD), Chest Pain / Angina, Heart Failure, COPD, Diabetes Mellitus, GERD/Reflux, Hyperlipidemia, Hypertension, Myocardial Infarction (NH), Pneumonia, Supraventricular Tachycardia (SVT), Vascular Disorder Additional Past Medical History / Comment(s): Ischemic cardiomyopathy, nonsustained ventriclar arrhythmia, systolic heart failure, [place] x 2 in 2001 and 1994, thrombocytopenia, cellulitis 2ndary to local trauma L patella, kidney stones which pt believes he passed, gout bilateral feet/ toes, occasional bilateral tinnitis, past 3-4 years intermittent bilateral leg pain but pt states he now takes quinine when this occurs and has relief of pain. Last Myocardial Infarction Date:: 2001 History of Any Multi-Drug Resistant Organisms: None Reported Past Surgical History: Heart Catheterization, Heart Catheterization With Stent, Joint Replacement, Orthopedic Surgery Additional Past Surgical History / Comment(s): PCIs with a total of 6 stents per patient, cardiac ablation-AVRNT, EPS, R knee arthroscopy, bilateral total knee replacements-L side became infected-had I&D, bilateral shoulder rotator cuff s urgeries with L side done 3 times, L ankle surgery, bilateral carpal tunnel releases, colonoscopy. Past Anesthesia/Blood Transfusion Reactions: No Reported Reaction Additional Past Anesthesia/Blood Transfusion Reaction / Comment(s): never had a blood tranfusion Date of Last Stent Placement:: 02/05/19 Past Psychological History: No Psychological Hx Reported Smoking Status: Former smoker Past Alcohol Use History: None Reported Past Drug Use History: None Reported - Past Family History Father History Unknown: Yes Additional Family Medical History / Comment(s): Pt does not know his father's history. His parents were when he was 6 yrs old. Mother History Unknown: Yes Family Medical History: Cancer Additional Family Medical History / Comment(s): Pt states mother had some form of cancer which she from at the age of 77yrs. Medications and Allergies Home Medications Medication Instructions Recorded Confirmed Type Insulin NPH Hum/Reg Insulin Hm 10 unit SQ AC-SUPPER 06/07/14 08/24/20 History [NovoLIN 70-30 100 UNIT/ML VIAL] Isosorbide Mononitrate [Imdur] 30 mg PO DAILY 06/07/14 08/24/20 History allopurinoL [Zyloprim] 300 mg PO DAILY 06/07/14 08/24/20 History metFORMIN HCL 1,000 mg PO BID 06/07/14 08/24/20 History Ferrous Sulfate [Iron (65 MG 325 mg PO DAILY 03/07/16 08/24/20 History Elemental)] Spironolactone [Aldactone] 25 mg PO DAILY #30 tab 03/09/16 08/24/20 Rx Atorvastatin [Lipitor] 20 mg PO HS 07/21/17 08/24/20 History Insulin NPH Hum/Reg Insulin Hm 20 unit SQ AC-BRKFST #0 07/29/17 08/24/20 Rx [NovoLIN 70-30 100 UNIT/ML VIAL] Aspirin 325 mg PO DAILY 10/20/18 08/24/20 History Carvedilol [Coreg] 12.5 mg PO BID 07/11/19 08/24/20 History Furosemide [Lasix] 20 mg PO DAILY 07/11/19 08/24/20 History Magnesium Oxide [Mag-Ox] 250 mg PO DAILY 07/11/19 08/24/20 History Allergies Allergy/AdvReac Type Severity Reaction Status Date / Time No Known Allergies Allergy Verified 08/24/20 20:14 Physical Exam Vitals: Vital Signs Temp Pulse Resp BP Pulse Ox 08/25/20 09:43 65 18 122/65 97 08/25/20 07:06 97.7 F 79 16 114/57 97 08/25/20 01:22 97.4 F L 90 20 154/79 97 08/25/20 00:33 97.9 F 88 16 112/74 98 08/24/20 21:49 91 18 118/69 99 08/24/20 20:11 105 H 16 136/75 97 Intake and Output 08/24/20 08/25/20 08/25/20 22:59 06:59 14:59 Intake Total 85.342 Balance 85.342 Intake: Intake, IV Titration 85.342 Amount Heparin Sod,Pork in 0.45% 85.342 NaCl 25,000 unit In 0.45 % NaCl 1 250ml.bag @ 8.48 UNITS/KG/HR 10.001 mls/ hr IV .Q24H [facility] Rx#: [id number] Other: Weight 117.934 kg PHYSICAL EXAMINATION: GENERAL: The patient is alert and oriented x3, not in any acute distress. Well developed, well nourished. HEENT: Pupils are round and equally reacting to light. EOMI. No scleral icterus. No conjunctival pallor. Normocephalic, atraumatic. No pharyngeal erythema. No thyromegaly. CARDIOVASCULAR: S1 and S2 present. No murmurs, rubs, or gallops. PULMONARY: Chest is clear to auscultation, no wheezing or crackles. ABDOMEN: Soft, nontender, nondistended, normoactive bowel sounds. No palpable organomegaly. MUSCULOSKELETAL: No joint swelling or deformity. EXTREMITIES: No cyanosis, clubbing, or pedal edema. NEUROLOGICAL: Gross neurological examination did not reveal any focal deficits. SKIN: No rashes. Results CBC & Chem 7: 08/26/20 07:29 08/26/20 07:29 Labs: Abnormal Lab Results - Last 24 Hours (Table) 08/24/20 08/24/20 08/25/20 Range/Units 20:30 20:30 05:30 RBC 4.10 L (4.30-5.90) m/uL Plt Count 74 L (150-450) k/uL APTT 31.1 H (22.0-30.0) sec Glucose 181 H (74-99) mg/dL AST 65 H (17-59) U/L Creatine Kinase 47 L (55-170) U/L Triglycerides (<150) mg/dL HDL Cholesterol (40-60) mg/dL 08/25/20 08/25/20 Range/Units 05:30 05:30 RBC (4.30-5.90) m/uL Plt Count 59 L (150-450) k/uL APTT (22.0-30.0) sec Glucose (74-99) mg/dL AST (17-59) U/L Creatine Kinase (55-170) U/L Triglycerides 496 H (<150) mg/dL HDL Cholesterol 24 L (40-60) mg/dL Assessment and Plan Assessment: 1. Unstable angina/history of CAD with multiple previous PCI - Monitor EKG and trend troponin; obtain 2-D echo; patient has an ejection fraction of 35-40% on previous echo - Cardiology on board and recommending possible cardiac catheterization 2. Uncontrolled diabetes mellitus type 2; we will monitor Accu-Cheks every seen and at bedtime with insulin sliding scale; counseling done for improved blood sugar control 3. Hypertension; continue with current antihypertensive therapy 4. Hyperlipidemia; Lipitor 20 mg daily 5. Chronic systolic CHF; Lasix 20 mg daily along with Aldactone 25 mg daily 6. COPD; not in exacerbation DVT prophylaxis CODE STATUS; full code
--- NOTE | 2020-08-26 12:18 | P.DS ---
Providers Date of admission: 08/25/20 13:43 Expected date of discharge: 08/26/20 Attending physician: Alexandra Torres Consults: 08/24/20 22:27 Consult Physician Urgent Consulting Provider: Lydia Manning Consult Reason/Comments: cp Do you want consulting provider notified?: Yes Primary care physician: Carrie Izaguirre Hospital Course: 74-year-old male with significant cardiac history coming in for chest pain. Patient does have history of chest pain coming with persistent chest pain but much worse with exertion. No recent travel history or sick contacts. Again pain is with exertion much improved now he does get diaphoretic and short of breath Workup in ED including an EKG revealed right bundle branch block, chest x-ray was unremarkable, lab review shows a white blood count of 4.0, hemoglobin 13.6 and platelet count of 74. Chemical profile shows sodium of 139, potassium 4.4, BUN 10 and creatinine of 0.81. Troponin negative so far with a BNP of 172 Patient is being admitted to the hospital for further cardiac evaluation - Monitor EKG and trend troponin; obtain 2-D echo; patient has an ejection fraction of 35-40% on previous echo - Cardiology on board and recommending possible cardiac catheterization Patient underwent cardiac catheterization which revealed mild to moderate nonobstructive disease involving distal RCA and mild disease involving left coronary ; normal LVEDP Patient was evaluated by cardiology and is recommended medical management; patient will be discharged home to follow-up with primary care physician and primary rod piler Patient Condition at Discharge: Undetermined Plan - Discharge Summary Discharge Rx Participant: No New Discharge Prescriptions: New Aspirin 81 mg PO DAILY chew carvediloL [Coreg*] 12.5 mg PO BID-W/MEALS tab Atorvastatin [Lipitor] 80 mg PO DAILY #30 tab lisinopriL [Zestril] 2.5 mg PO DAILY #30 tab Continue metFORMIN HCL 1,000 mg PO BID Isosorbide Mononitrate [Imdur] 30 mg PO DAILY allopurinoL [Zyloprim] 300 mg PO DAILY Insulin NPH Hum/Reg Insulin Hm [NovoLIN 70-30 100 UNIT/ML VIAL] 10 unit SQ AC-SUPPER Ferrous Sulfate [Iron (65 MG Elemental)] 325 mg PO DAILY Spironolactone [Aldactone] 25 mg PO DAILY #30 tab Insulin NPH Hum/Reg Insulin Hm [NovoLIN 70-30 100 UNIT/ML VIAL] 20 unit SQ AC-BRKFST #0 Furosemide [Lasix] 20 mg PO DAILY Carvedilol [Coreg] 12.5 mg PO BID Magnesium Oxide [Mag-Ox] 250 mg PO DAILY Discontinued Atorvastatin [Lipitor] 20 mg PO HS Aspirin 325 mg PO DAILY Discharge Medication List Insulin NPH Hum/Reg Insulin Hm [NovoLIN 70-30 100 UNIT/ML VIAL] 10 unit SQ AC- SUPPER 06/07/14 [History] Isosorbide Mononitrate [Imdur] 30 mg PO DAILY 06/07/14 [History] allopurinoL [Zyloprim] 300 mg PO DAILY 06/07/14 [History] metFORMIN HCL 1,000 mg PO BID 06/07/14 [History] Ferrous Sulfate [Iron (65 MG Elemental)] 325 mg PO DAILY 03/07/16 [History] Spironolactone [Aldactone] 25 mg PO DAILY #30 tab 03/09/16 [Rx] Insulin NPH Hum/Reg Insulin Hm [NovoLIN 70-30 100 UNIT/ML VIAL] 20 unit SQ AC- BRKFST #0 07/29/17 [Rx] Carvedilol [Coreg] 12.5 mg PO BID 07/11/19 [History] Furosemide [Lasix] 20 mg PO DAILY 07/11/19 [History] Magnesium Oxide [Mag-Ox] 250 mg PO DAILY 07/11/19 [History] Aspirin 81 mg PO DAILY chew 08/26/20 [Rx] Atorvastatin [Lipitor] 80 mg PO DAILY #30 tab 08/26/20 [Rx] carvediloL [Coreg*] 12.5 mg PO BID-W/MEALS tab 08/26/20 [Rx] lisinopriL [Zestril] 2.5 mg PO DAILY #30 tab 08/26/20 [Rx] Follow up Appointment(s)/Referral(s): Ankur Morrow MD [STAFF PHYSICIAN] - 1 Week (Office is closed, please schedule appointment Friday.) Carrie Izaguirre MD [Primary Care Provider] - 1-2 days (Office is closed, please schedule appointment Friday.) Patient Instructions/Handouts: Chest Pain (ED) Discharge Disposition: HOME SELF-CARE
[2020-08-26] MEDS ORDERED: carvediloL 12.5 MG TAB PO SCH (17:30)
[2020-08-27] MEDS ORDERED: ASPIRIN 81 MG PO SCH (09:00)
--- NOTE | 2020-08-28 13:51 | CDI ---
Documentation Clarification Form Date: 08/28/20 From: Leda Schreiber Phone: If you have a question about this query, please contact Jess Caal, Check Writer at [phone] between 8am and 5pm. Admit Date: 08/25/20 Discharge Date: 08/26/20 Patient Name: DENYS WEATHERS Visit Number: [id number] ATTENTION: The Clinical Documentation Specialists (CDI) and [facility] Coding Staff appreciate your assistance in clarifying documentation. Please respond to the clarification below the line at the bottom and electronically sign. The CDI & [facility] Coding staff will review the response and follow-up if needed. Please note: Queries are made part of the Legal Health Record. If you have any questions, please contact the author of this message via ITS. Dear Dr. Harika Crain, The patient has uncontrolled Type II diabetes, as indicated IN h&p. POC Glucose: 142, 153 Glucose: 181, 194, 187 Treatment: Accu-Cheks every morning and at bedtime with Insulin sliding scale; counseling done for improved blood sugar control. Per [facility] 2016 - query the provider for clarification whether the patient has hyperglycemia or hypoglycemia so that the appropriate code may be reported - uncontrolled diabetes indicates that the patient's blood sugar is not at an acceptable level, because it is either too high or too low. In order to capture the severity of Illness and necessary documentation specificity, please clarify if Type 2 uncontrolled diabetes is: Hyperglycemia Hypoglycemia Other, please specify Unable to Determine hyperglycemia MTDD
== END 2020-08-26 13:14 | disposition home or self-care (01) | DRG 287 ==
LOC: EC 20:05 → 3NCARDOBS 22:27 → OBSVTOIN 08-25 13:43 → 3NCARDOBS 08-25 13:44
PROVIDERS: ADMIT Hospitalist; ATTEND Hospitalist
PROC: 4A023N7 Measurement of Cardiac Sampling and Pressure, Left Heart, Percutaneous Approach (ICD-10-PCS; principal; 2020-08-25 10:25)
PROC: B2111ZZ Fluoroscopy of Multiple Coronary Arteries using Low Osmolar Contrast (ICD-10-PCS; principal; 2020-08-25 10:25)
DX: I25.110 Atherosclerotic heart disease of native coronary artery with unstable angina pectoris (principal); I50.22 Chronic systolic (congestive) heart failure; Z68.41 Body mass index [BMI] 40.0-44.9, adult; D69.6 Thrombocytopenia, unspecified; I11.0 Hypertensive heart disease with heart failure; E66.01 Morbid (severe) obesity due to excess calories; E11.65 Type 2 diabetes mellitus with hyperglycemia; J44.9 Chronic obstructive pulmonary disease, unspecified; Z79.4 Long term (current) use of insulin; I25.5 Ischemic cardiomyopathy; E78.1 Pure hyperglyceridemia; E78.5 Hyperlipidemia, unspecified; I45.10 Unspecified right bundle-branch block; K21.9 Gastro-esophageal reflux disease without esophagitis; M10.9 Gout, unspecified; H93.13 Tinnitus, bilateral; I25.2 Old myocardial infarction; Z79.82 Long term (current) use of aspirin; Z79.899 Other long term (current) drug therapy; Z87.01 Personal history of pneumonia (recurrent); Z87.442 Personal history of urinary calculi; Z95.5 Presence of coronary angioplasty implant and graft; Z96.653 Presence of artificial knee joint, bilateral; Z87.891 Personal history of nicotine dependence; Z87.39 Personal history of other diseases of the musculoskeletal system and connective tissue; Z86.79 Personal history of other diseases of the circulatory system; Z98.890 Other specified postprocedural states; Z80.9 Family history of malignant neoplasm, unspecified
CPT/HCPCS: 36415; 71046; 80048; 80053; 80061; 82550; 83690; 83735; 83880; 84484; 85025; 85049; 85610; 85730; 93005; 93306; 93458; 94760; 96361; 96365; 96366; 99291

== ENCOUNTER 2021-05-29 15:09 | Emergency (ER) | payer MEDICARE ==
[2021-05-29 15:15] VITALS: RESP 18; TEMP 98.3
--- NOTE | 2021-05-29 16:05 | XR ---
EXAMINATION TYPE: XR knee complete RT DATE OF EXAM: 05/29/2021 CLINICAL HISTORY: Lateral pain. TECHNIQUE: Three views of the right knee are obtained. COMPARISON: None. FINDINGS: There is no acute fracture/dislocation evident in right knee. Metallic hardware from right knee arthroplasty is satisfactory in position. Increased density suprapatellar bursa suspicious for [id number] size joint effusion. Some scattered bony fragments along posterior medial aspect of the knee noted. Posterior arterial vascular calcification is seen. IMPRESSION: As above.
--- NOTE | 2021-05-29 16:10 | ED ---
Extremity Problem HPI - General Chief complaint: Extremity Problem,Nontraumatic Stated complaint: R knee pain Time Seen by Provider: 05/29/21 15:22 Source: patient Mode of arrival: ambulatory Limitations: no limitations - History of Present Illness Initial comments: 75-year-old male presents to emergency Department with a chief complaint of right knee pain. Patient reports the pain started earlier today that woke him up out of his sleep. States the pain was sudden onset on the lateral aspect of the right knee. He does have arthroplasty in the knee as well. States it was sharp in nature which has gradually resolved in severity throughout the day. However, it is still painful. States he has full range of motion. Denies any radiation of the pain. Denies any significant swelling, ecchymotic or erythematous changes. Denies any paresthesias or weakness in the leg. - Related Data Home Medications Medication Instructions Recorded Confirmed Insulin NPH Hum/Reg Insulin Hm 10 unit SQ AC-SUPPER 06/07/14 08/24/20 [NovoLIN 70-30 100 UNIT/ML VIAL] Isosorbide Mononitrate [Imdur] 30 mg PO DAILY 06/07/14 08/24/20 allopurinoL [Zyloprim] 300 mg PO DAILY 06/07/14 08/24/20 metFORMIN HCL 1,000 mg PO BID 06/07/14 08/24/20 Ferrous Sulfate [Iron (65 MG 325 mg PO DAILY 03/07/16 08/24/20 Elemental)] Carvedilol [Coreg] 12.5 mg PO BID 07/11/19 08/24/20 Furosemide [Lasix] 20 mg PO DAILY 07/11/19 08/24/20 Magnesium Oxide [Mag-Ox] 250 mg PO DAILY 07/11/19 08/24/20 Previous Rx's Medication Instructions Recorded Spironolactone [Aldactone] 25 mg PO DAILY #30 tab 03/09/16 Insulin NPH Hum/Reg Insulin Hm 20 unit SQ AC-BRKFST #0 07/29/17 [NovoLIN 70-30 100 UNIT/ML VIAL] Aspirin 81 mg PO DAILY chew 08/26/20 Atorvastatin [Lipitor] 80 mg PO DAILY #30 tab 08/26/20 carvediloL [Coreg*] 12.5 mg PO BID-W/MEALS tab 08/26/20 lisinopriL [Zestril] 2.5 mg PO DAILY #30 tab 08/26/20 Allergies Allergy/AdvReac Type Severity Reaction Status Date / Time No Known Allergies Allergy Verified 05/29/21 15:15 Review of Systems ROS Statement: Those systems with pertinent positive or pertinent negative responses have been documented in the HPI. ROS Other: All systems not noted in ROS Statement are negative. Past Medical History Past Medical History: Coronary Artery Disease (CAD), Chest Pain / Angina, Heart Failure, COPD, Diabetes Mellitus, GERD/Reflux, Hyperlipidemia, Hypertension, Myocardial Infarction (TX), Pneumonia, Supraventricular Tachycardia (SVT), Vascular Disorder Additional Past Medical History / Comment(s): Ischemic cardiomyopathy, nonsustained ventriclar arrhythmia, systolic heart failure, TX x 2 in 2001 and 1994, thrombocytopenia, cellulitis 2ndary to local trauma L patella, kidney stones which pt believes he passed, gout bilateral feet/ toes, occasional bilateral tinnitis, past 3-4 years intermittent bilateral leg pain but pt states he now takes quinine when this occurs and has relief of pain. 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 Past Anesthesia/Blood Transfusion Reactions: No Reported Reaction Additional Past Anesthesia/Blood Transfusion Reaction / Comment(s): never had a blood tranfusion Date of Last Stent Placement:: 02/05/19 Past Psychological History: No Psychological Hx Reported Smoking Status: Former smoker Past Alcohol Use History: None Reported Past Drug Use History: None Reported - Past Family History Father History Unknown: Yes Additional Family Medical History / Comment(s): Pt does not know his father's history. His parents were when he was 6 yrs old. Mother History Unknown: Yes Family Medical History: Cancer Additional Family Medical History / Comment(s): Pt states mother had some form of cancer which she from at the age of 77yrs. General Exam Limitations: no limitations General appearance: alert, in no apparent distress Head exam: Present: atraumatic, normocephalic, normal inspection Eye exam: Present: normal appearance, PERRL, EOMI Pupils: Present: normal accommodation ENT exam: Present: normal exam, normal oropharynx, mucous membranes moist Neck exam: Present: normal inspection, full ROM. Absent: tenderness, lymphadenopathy Respiratory exam: Present: normal lung sounds bilaterally. Absent: respiratory distress, wheezes, rales Cardiovascular Exam: Present: regular rate, normal rhythm, normal heart sounds. Absent: systolic murmur Extremities exam: Present: normal inspection, full ROM, tenderness (Lateral tenderness of the right knee. No signs of infection. Positive Maribel.), norm al capillary refill, other (palpable DP and PT bilateral. Sensation intact in bilateral lower extremities.). Absent: pedal edema, joint swelling, calf tenderness Back exam: Present: normal inspection, full ROM. Absent: tenderness Neurological exam: Present: alert, oriented X3 Psychiatric exam: Present: normal affect, normal mood Skin exam: Present: warm, dry, intact, normal color Course Vital Signs 05/29/21 15:11 Temperature 98.3 F Pulse Rate 68 Respiratory 18 Rate Blood Pressure 117/65 O2 Sat by Pulse 97 Oximetry Medical Decision Making - Medical Decision Making 75-year-old male presents to emergency Department with a chief complaint right knee pain. On physical examination, is neurovascularly intact. Full range of motion. X-ray shows no acute findings with satisfactory positioning of the arthroplasty. There is likely a small to moderate size joint effusion. Tommy wrap will be applied. Advised the patient to follow-up with his exhibition specialist. Strict return parameters were thoroughly discussed the patient's attending agreeable. Case discussed with Dr. Peters. Disposition Clinical Impression: Right knee pain, Effusion of knee joint right Disposition: HOME SELF-CARE Condition: Stable Instructions (If sedation given, give patient instructions): Swollen Knee Joint (ED), Osteoarthritis (DC) Additional Instructions: Follow-up with exhibition specialist. Return to emergency department if sym ptoms worsen. Is patient prescribed a controlled substance at d/c from ED?: No Referrals: Carrie Izaguirre MD [Primary Care Provider] - 1-2 days Lazaro Wells DO [Doctor of Osteopathic Medicine] - 1-2 days Time of Disposition: 16:10
[2021-05-29 16:22] VITALS: BP 121/72; PULSE 72
== END 2021-05-29 16:26 | disposition home or self-care (01) ==
LOC: EC 15:09
DX: M25.461 Effusion, right knee (principal); E11.9 Type 2 diabetes mellitus without complications; J44.9 Chronic obstructive pulmonary disease, unspecified; E78.5 Hyperlipidemia, unspecified; I11.0 Hypertensive heart disease with heart failure; I50.20 Unspecified systolic (congestive) heart failure; I25.10 Atherosclerotic heart disease of native coronary artery without angina pectoris; I25.2 Old myocardial infarction; K21.9 Gastro-esophageal reflux disease without esophagitis; Z79.4 Long term (current) use of insulin; Z79.82 Long term (current) use of aspirin; Z87.442 Personal history of urinary calculi; Z87.891 Personal history of nicotine dependence; M10.9 Gout, unspecified
CPT/HCPCS: 99283

== ENCOUNTER 2021-07-17 19:46 | Inpatient (IN) | payer MEDICARE ==
[2021-07-17] MEDS ORDERED: MORPHINE SULFATE 2 MG/ML SYRINGE IVP STA (20:56)
[2021-07-17] MEDS ORDERED: NITROGLYCERIN OINT 1 INCH/GM PACKET TOPICAL STA (20:56)
[2021-07-17] MEDS ORDERED: ASPIRIN 81 MG PO STA (20:56)
[2021-07-17] MEDS: SODIUM CHLORIDE 0.9% 500 ML 500 ML IV ONE ×2 (21:26→22:26)
[2021-07-17 21:34] LABS: Albumin 3.1 g/dL (3.5-5.0); Calcium 8.9 mg/dL (8.4-10.2); Magnesium 2.7 mg/dL (1.6-2.3); Total Bilirubin 1.8 mg/dL (0.2-1.3); Total Protein 5.9 g/dL (6.3-8.2)
[2021-07-17 21:39] LABS: Potassium 6.4 mmol/L (3.5-5.1)
[2021-07-17 21:40] LABS: INR 1.1 (<1.2); Prothrombin Time 11.4 sec (9.0-12.0)
[2021-07-17 21:47] LABS: Anisocytosis Slight; Hypochromasia Moderate; MCH 34.6 pg (25.0-35.0); MCHC 31.9 g/dL (31.0-37.0); MCV 108.5 fL (80.0-100.0); Macrocytosis Marked; Mean Platelet Volume 7.5; Platelet Count 286 k/uL (150-450); Poikilocytosis Moderate; RBC 1.53 m/uL (4.30-5.90); RDW 19.8 % (11.5-15.5)
[2021-07-17 21:53] LABS: HCT 16.6 % (39.0-53.0); HGB 5.3 gm/dL (13.0-17.5)
[2021-07-17 21:57] LABS: Partial Thromboplastin Time 19.4 sec (22.0-30.0)
[2021-07-17] MEDS ORDERED: SODIUM BICARB 8.4% 50 ML SYR (1 MEQ/ML) IV STA (22:00)
[2021-07-17] MEDS ORDERED: INSULIN REGULAR 100 UNIT/ML VIAL (IV) SQ STA (22:01)
[2021-07-17] MEDS ORDERED: DEXTROSE 50% SYRINGE 50 ML IVP STA (22:01)
[2021-07-17] MEDS ORDERED: SODIUM POLYSTYRENE SULFONATE 15 GM/60 ML BOTTLE PO STA (22:01)
[2021-07-17] MEDS ORDERED: SODIUM CHLORIDE 0.9% 500 ML IV STA (22:04)
[2021-07-17] MEDS ORDERED: INSULIN REGULAR 100 UNIT/ML VIAL (IV) IV ONE (22:20)
[2021-07-17 22:29] LABS: Band Neutrophils % 6 %; Metamyelocytes % 1 %; Neutrophils % (M) 73 %; Nucleated Red Blood Cells 5 /100 WBC (0-0); Total Cells Counted 200
[2021-07-17 22:30] LABS: Eosinophils # (M) 0.16 k/uL (0-0.7); Lymphocytes # (M) 1.96 k/uL (1.0-4.8); Metamyelocytes # (M) 0.16 k/uL (0); Monocytes # (M) 1.14 k/uL (0-1.0); WBC 16.3 k/uL (3.8-10.6)
[2021-07-17 22:30] LABS: Glucose,Whole Blood 331 mg/dL (75-99)
[2021-07-17 22:33] LABS: Anisocytosis (M) Present; Poikilocytosis (M) Present; Polychromasia Present; Tear Drop Cells Present
[2021-07-17] MEDS ORDERED: fentaNYL (PF) 50 MCG/ML 2 ML AMP IVP PRN ×2 (22:38→23:51)
[2021-07-17] MEDS ORDERED: ONDANSETRON 4 MG/2 ML VIAL IVP STA ×2 (22:38→22:57)
[2021-07-17] MEDS ORDERED: fentaNYL (PF) 50 MCG/ML 2 ML AMP IVP STA (22:56)
[2021-07-17 23:00] LABS: Anisocytosis Slight; HCT 14.7 % (39.0-53.0); HGB 4.5 gm/dL (13.0-17.5); Hypochromasia Marked; MCH 33.6 pg (25.0-35.0); MCHC 30.8 g/dL (31.0-37.0); MCV 109.2 fL (80.0-100.0); Macrocytosis Marked; Platelet Count 219 k/uL (150-450); Poikilocytosis Moderate; RBC 1.35 m/uL (4.30-5.90); RDW 19.7 % (11.5-15.5); WBC 12.1 k/uL (3.8-10.6)
[2021-07-17] MEDS ORDERED: PANTOPRAZOLE 40 MG/10 ML VIAL IVP ONE (23:37)
--- NOTE | 2021-07-17 23:44 | ED ---
Chest Pain HPI - General Chief Complaint: Chest Pain Stated Complaint: Chest Pain Time Seen by Provider: 07/17/21 20:43 Source: patient, EMS Mode of arrival: EMS - History of Present Illness Initial Comments: This 75-year-old white male presents with a complaint of some chest pain. He states that it started 2 nights ago. He then had it again last night. He states that it was fairly severe. He did try some sublingual nitroglycerin with limited relief. He relates that it occurred once again tonight. He is currently coming in from the rehabilitation facility. He had a total right knee surgery approximately 2 weeks ago. He complains of occasional shortness of breath. He denies any known blood in his stool or black tarry stools. He denies a history of previous GI bleeding. He does have a history of coronary artery disease and has had 6 stents. He is unsure of his last stress test. He has never had open heart surgery. No other complaints or modifying factors. - Related Data Home Medications Medication Instructions Recorded Confirmed Isosorbide Mononitrate [Imdur] 30 mg PO DAILY 06/07/14 07/17/21 metFORMIN HCL [Glucophage] 1,000 mg PO BID 06/07/14 07/17/21 Ferrous Sulfate [Iron (65 MG 325 mg PO DAILY 03/07/16 07/17/21 Elemental)] Furosemide [Lasix] 20 mg PO DAILY 07/11/19 07/17/21 Magnesium Oxide [Mag-Ox] 250 mg PO DAILY 07/11/19 07/17/21 Gabapentin [Neurontin] 100 mg PO BID 07/17/21 07/17/21 Meloxicam [Mobic] 7.5 mg PO DAILY 07/17/21 07/17/21 Nitroglycerin Sl Tabs [Nitrostat] 0.4 mg SUBLINGUAL Q5M PRN 07/17/21 07/17/21 allopurinoL [Zyloprim] 100 mg PO DAILY 07/17/21 07/17/21 Previous Rx's Medication Instructions Recorded Insulin NPH Hum/Reg Insulin Hm 20 unit SQ AC-BRKFST #0 07/29/17 [NovoLIN 70-30 100 UNIT/ML VIAL] Aspirin 81 mg PO DAILY chew 08/26/20 Atorvastatin [Lipitor] 80 mg PO DAILY #30 tab 08/26/20 carvediloL [Coreg*] 12.5 mg PO BID-W/MEALS tab 08/26/20 lisinopriL [Zestril] 2.5 mg PO DAILY #30 tab 08/26/20 Allergies Allergy/AdvReac Type Severity Reaction Status Date / Time No Known Allergies Allergy Verified 07/17/21 21:41 Review of Systems ROS Statement: Those systems with pertinent positive or pertinent negative responses have been documented in the HPI. ROS Other: All systems not noted in ROS Statement are negative. Past Medical History Past Medical History: Coronary Artery Disease (CAD), Chest Pain / Angina, Heart Failure, COPD, Diabetes Mellitus, GERD/Reflux, Hyperlipidemia, Hypertension, Myocardial Infarction (ID), Pneumonia, Supraventricular Tachycardia (SVT), V ascular Disorder Additional Past Medical History / Comment(s): Ischemic cardiomyopathy, nonsustained ventriclar arrhythmia, systolic heart failure, [place] x 2 in 2001 and 1994, thrombocytopenia, cellulitis 2ndary to local trauma L patella, kidney stones which pt believes he passed, gout bilateral feet/ toes, occasional bilateral tinnitis, past 3-4 years intermittent bilateral leg pain but pt states he now takes quinine when this occurs and has relief of pain. 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 Past Anesthesia/Blood Transfusion Reactions: No Reported Reaction Additional Past Anesthesia/Blood Transfusion Reaction / Comment(s): never had a blood tranfusion Date of Last Stent Placement:: 02/05/19 Past Psychological History: No Psychological Hx Reported Smoking Status: Former smoker Past Alcohol Use History: None Reported Past Drug Use History: None Reported - Past Family History Father History Unknown: Yes Additional Family Medical History / Comment(s): Pt does not know his father's history. His parents were when he was 6 yrs old. Mother History Unknown: Yes Family Medical History: Cancer Additional Family Medical History / Comment(s): Pt states mother had some form of cancer which she from at the age of 77yrs. General Exam - General Exam Comments Initial Comments: GENERAL: The patient is well nourished and well hydrated. VITAL SIGNS: Heart rate, blood pressure, respiratory rate reviewed as recorded in nurse's notes. EYES: Pupils are round and reactive. Extraocular movements are intact. No conjunctival / lid redness or swelling. ENT: No external evidence of injury, swelling, or ecchymosis. Airway is patent. Throat is clear. NECK: Nontender. No swelling or evidence of injury. No subcutaneous emphysema. Trachea is midline. No thyroid mass. HEART: Regular rate and rhythm. Good peripheral pulses. LUNGS/CHEST: Breath sounds clear and equal bilaterally. No rales, rhonchi, or wheezes. No ecchymosis, subcutaneous emphysema, or tenderness. ABDOMEN: Abdomen soft without tenderness. No palpable masses or organomegaly. No peritoneal signs. No abdominal wall swelling or ecchymosis. Rectal exam: There is no hemorrhage identified. There is dark stool noted on digital rectal examination and Hemoccult is sent. EXTREMITIES: Swelling noted to the right lower extremity primarily in the knee and distal to this with postop changes noted. No evidence of erythema or drainage. No thoracolumbar tenderness. NEUROLOGIC: Sensation is grossly intact. Cranial nerve exam reveals face is symmetrical, tongue is midline, speech is clear. SKIN: No abrasions or ecchymosis is noted. No induration or masses noted. Appears fairly pale PSYCHIATRIC: Alert and oriented. Appropriate behavior and judgment. Course Vital Signs 07/17/21 07/17/21 07/17/21 20:11 20:16 22:35 Temperature 97.7 F Pulse Rate 80 81 87 Respiratory 20 20 20 Rate Blood Pressure 86/42 97/54 87/40 O2 Sat by Pulse 100 99 100 Oximetry 07/18/21 00:14 Temperature 98.3 F Pulse Rate 76 Respiratory 20 Rate Blood Pressure 76/31 O2 Sat by Pulse 100 Oximetry Chest Pain [facility] Patient was seen and examined. All diagnostics were reviewed. The EKG was completed and shows a normal sinus rhythm at a rate of [address] elevation noted. There is a right bundle-branch block with associated ST-T wave changes noted. The ND intervals 204, QRS duration is 142, and the QTC intervals 496. The previous EKG was also completed and is similar. The patient was placed on the hall monitor and no ectopy is identified. The hemoglobin came back severely low in the fives and the repeat hemoglobin came back even lower at 4.5 but this was after some fluid hydration. His troponin is negative. The CO2 is decreased at 20, creatinine is slightly elevated at 1.34. The d- dimer came back elevated and patient is currently obtaining computed tomography scan throughout the possibility of a pulmonary embolism. Patient was minimally hypotensive. He did receive fluid hydration and his blood pressure came up. He also received some fentanyl intravenously as well as some Zofran intravenously for nausea. It is felt as though his hemoglobin is strongly low. The repeat was done to double check this finding and is found to be even lower. It went from 5.3-4.5 over a couple of hours. He does have 2 units of packed red blood cells ordered for transfusion. It is felt as though he could be having chest pain related to his anemia which likely is related to an upper GI bleed. His Hemoccult is pending but his stools. Dark in nature upon digital rectal examination. It is felt as though he will require admission for further treatment. In addition is potassium level came back significantly elevated at 6.4 a receives Kayexalate orally as well as intravenous bicarbonate, insulin, and glucose. He is agreeable to admission. Case is discussed with Dr. Irizarry who also is agreeable with admission. Gastroenterology will be consulted. Patient is given IV Protonix as well. Cardiology will be consulted in regards to his chest pain. Approximately 40 minutes of critical care time is utilized and the treatment of the patient. His CT angiogram of the chest came back showing some degree of atelectasis but no evidence of pulmonary embolism or acute process otherwise. Case is discussed with Dr. Gallego and patient is admitted to the intensive care unit for further treatment. The patient will be receiving blood shortly. He is given Reglan for additional nausea and vomiting. CBC and basic metabolic profile will be drawn again at 6 AM. Disposition Clinical Impression: Chest pain, Unstable angina pectoris, Anemia, Diabetes, Hypotension, Elevated d-dimer, Nausea, Hyperkalemia, GI bleed, History of right knee surgery Disposition: ADMITTED IP TO THIS [facility] Condition: Serious Referrals: Carrie Izaguirre MD [Primary Care Provider] - 1-2 days Time of Disposition: 23:43 Decision Date: 07/17/21 Decision Time: 23:43
[2021-07-17] MEDS ORDERED: METOCLOPRAMIDE 5 MG/ML 2 ML VIAL IVP STA (23:51)
[2021-07-17] MEDS ORDERED: ONDANSETRON 4 MG/2 ML VIAL IVP PRN (23:52)
--- NOTE | 2021-07-18 00:06 | CT ---
EXAMINATION TYPE: CT angio chest DATE OF EXAM: 07/17/2021 COMPARISON: 10/26/2018 HISTORY: R/O PE, Chest Pain CT DLP: 874.7 mGycm Automated exposure control for dose reduction was used. CONTRAST: Performed with IV Contrast, patient injected with 80 mL of Isovue 370. There are 3-D post processed images. There is some mild subsegmental atelectasis in both lungs. There is no pulmonary consolidation. Heart is enlarged. There is no pericardial effusion. There is no pleural effusion. There are no hilar mass es. There is no mediastinal adenopathy. Thoracic aorta is atheromatous. There is no evidence of filling defect in the pulmonary arteries. The bony thorax is intact. Thoracic spine is intact. IMPRESSION: There is some subsegmental atelectasis at the lung bases. No evidence of pulmonary embolism. There is cardiomegaly increased significantly compared to old exam. No suspicious pulmonary mass.
[2021-07-18] MEDS: NITROGLYCERIN OINT 1 INCH/GM PACKET TOPICAL SCH ×4 (00:49→15:59)
[2021-07-18 01:18] LABS: Glucose,Whole Blood 145 mg/dL (75-99)
[2021-07-18] MEDS ORDERED: NALOXONE 0.4 MG/ML 1 ML VIAL IV PRN (02:14)
[2021-07-18 06:25] LABS: Appearance,Urine Clear (Clear); Bacteria,Urine Rare /hpf; Bilirubin,Urine Negative (Negative); Blood,Urine Small (Negative); Color,Urine Yellow; Glucose,Urine (UA) Negative (Negative); Ketones,Urine Negative (Negative); Leukocyte Esterase,Urine Negative (Negative); Mucus,Urine Rare /hpf; Nitrite,Urine Negative (Negative); Protein,Urine Negative (Negative); RBC,Urine 2 /hpf (0-5); Specific Gravity,Urine 1.038 (1.001-1.035); Squamous Epithelial Cell,Urine <1 /hpf (0-4); Urobilinogen,Urine <2.0 mg/dL (<2.0); WBC,Urine 4 /hpf (0-5)
[2021-07-18 07:30] LABS: Glucose,Whole Blood 131 mg/dL (75-99)
[2021-07-18] MEDS ORDERED: INSULIN NPH 300 UNIT/3 ML VIAL SQ SCH (07:30)
[2021-07-18 07:43] LABS: Calcium 8.4 mg/dL (8.4-10.2); Magnesium 2.8 mg/dL (1.6-2.3); Potassium 5.8 mmol/L (3.5-5.1)
[2021-07-18 08:12] LABS: Anisocytosis Slight; Basophils # (A) 0.1 k/uL (0-0.2); Basophils % (A) 1 %; Eosinophils # (A) 0.1 k/uL (0-0.7); Eosinophils % (A) 1 %; HCT 20.2 % (39.0-53.0); Hypochromasia Slight; Lymphocytes # (A) 1.7 k/uL (1.0-4.8); Lymphocytes % (A) 15 %; MCH 34.1 pg (25.0-35.0); MCHC 32.7 g/dL (31.0-37.0); Macrocytosis Moderate; Mean Platelet Volume 7.5; Monocytes # (A) 0.4 k/uL (0-1.0); Monocytes % (A) 4 %; Neutrophils # (A) 8.8 k/uL (1.3-7.7); Neutrophils % (A) 78 %; Platelet Count 200 k/uL (150-450); Poikilocytosis Moderate; RBC 1.94 m/uL (4.30-5.90); WBC 11.2 k/uL (3.8-10.6)
[2021-07-18 08:16] LABS: HGB 6.6 gm/dL (13.0-17.5); MCV 104.2 fL (80.0-100.0)
[2021-07-18] MEDS ORDERED: PANTOPRAZOLE 40 MG/10 ML VIAL IVP SCH (09:00)
[2021-07-18] MEDS ORDERED: FUROSEMIDE 20 MG TAB PO SCH (09:00)
[2021-07-18] MEDS ORDERED: metFORMIN 500 MG TAB PO SCH (09:00)
--- NOTE | 2021-07-18 09:06 | P.CNPUL ---
History of Present Illness Consult date: 07/18/21 Reason for consult: chest pain History of present illness: 75-year-old male patient who presented to the burst department yesterday because of chest pain. He is known to have coronary artery disease and has undergone multiple coronary stenting. The patient has had previous NM 2 back in 1994 and 2001. He also has history of ischemic cardiomyopathy with an ejection fraction of 35-40% along with nonsustained ventricular tachycardia. His last cardiac catheterization was in August 2020 and it showed nonocclusive disease. No further intervention was done. He follows up with Dr. Hernadez. Other comorbidities include COPD, diabetes mellitus, hypertension, hyperlipidemia and peripheral vascular disease. I do see this patient to regularly in my office regarding his COPD. He is known to have a chronic stable COPD and he is in a ex-smoker. His FEV1 is in the order of 66% of predicted. He also has a pulmonary nodule identified on a CAT scan of the chest from 10/26/2018 and that was a 5 mm left lower lobe pulmonary nodule that was very small to characterize. In the emergency, the patient was afebrile. The patient initial blood pressure was 86/42. He had also a lower blood pressure 76/31. EKG showed a normal sinus rhythm. No acute ischemic changes. There was a RBB pattern. The hemoglobin came back at 4.5. Troponins were negative. Immediately the patient was given a total of 2 units of packed RBC. Subsequent hemoglobin from this morning is up to 6.6. Patient also receives fluids. Currently is on IV fluids running at the rate of 40 mL an hour of normal saline. D-dimer came back at 1.87. The patient underwent further testing with a CT angiogram that showed subsegmental atelectasis in the lung bases are noted as of any pulmonary embolism. He also had cardiomegaly. No evidence of any suspicious pulmonary nodules. The patient was having some nausea. He was given Zofran. He was suspected to have some GI bleed. His stool Hemoccult came back positive. He also had a potassium level of 6.40 [facility] and he was given a combination of Kayexalate and IV bicarb and D50 insulin and the subsequent potassium level came down to 5.8. Clinically, the patient denies having any melanotic stools. No history of any hematemesis. No recent EGD or colonoscopy. Coagulation profile was essentially within normal limits. In terms of education, the patient is not taking any form of anticoagulation. He is on ASA and he is on no other antiplatelet agents. No liver cirrhosis. No 70 peptic ulcer disease. He takes iron supplements 325 mg on a daily basis. The patient underwent a recent right knee replacement this was done by Dr. Gorge Abarca at [facility] at around 2 weeks ago. The surgical wound site is dry clean and intact. No thigh swelling. No bleeding at the Review of Systems Constitutional: Denies chills, Denies fever Eyes: denies as per HPI, denies blurred vision, denies bulging eye, denies decreased vision, denies diplopia, denies discharge, denies dry eye, denies irritation, denies itching, denies pain, denies photophobia, denies loss of peripheral vision, denies loss of vision, denies tunnel vision/blind spots Ears: deny: decreased hearing, ear discharge, earache, tinnitus Ears, nose, mouth and throat: Reports as per HPI Breasts: absent: as per HPI, gynecomastia Cardiovascular: Reports as per HPI, Reports chest pain, Reports dyspnea on exertion Respiratory: Reports dyspnea Gastrointestinal: Reports as per HPI Genitourinary: Reports as per HPI Musculoskeletal: Reports as per HPI Musculoskeletal: absent: ankle pain, ankle stiffness, ankle swelling, as per HPI, elbow pain, elbow stiffness, elbow swelling, foot pain, foot stiffness, foot swelling, hand pain, hand stiffness, hand swelling, hip pain, hip stiffness, hip swelling, knee pain, knee stiffness, knee swelling, shoulder pain, shoulder stiffness, shoulder swelling, wrist pain, wrist stiffness, wrist swelling Integumentary: Reports as per HPI Neurological: Reports as per HPI Psychiatric: Reports as per HPI Endocrine: Reports as per HPI Hematologic/Lymphatic: Reports as per HPI Allergic/Immunologic: Reports as per HPI Past Medical History Past Medical History: Coronary Artery Disease (CAD), Chest Pain / Angina, Heart Failure, COPD, Diabetes Mellitus, GERD/Reflux, Hyperlipidemia, Hypertension, Myocardial Infarction (NM), Pneumonia, Supraventricular Tachycardia (SVT), Vascular Disorder Additional Past Medical History / Comment(s): Ischemic cardiomyopathy, nonsustained ventriclar arrhythmia, systolic heart failure, NM x 2 in 2001 and 1994, thrombocytopenia, cellulitis 2ndary to local trauma L patella, kidney stones which pt believes he passed, gout bilateral feet/ toes, occasional bilateral tinnitis, past 3-4 years intermittent bilateral leg pain but pt states he now takes quinine when this occurs and has relief of pain. 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 Past Anesthesia/Blood Transfusion Reactions: No Reported Reaction Additional Past Anesthesia/Blood Transfusion Reaction / Comment(s): never had a blood tranfusion Date of Last Stent Placement:: 02/05/19 Past Psychological History: No Psychological Hx Reported Additional Psychological History / Comment(s): Pt resides with his girlfriend in an apartment with elevators. He is independent. He is an [employer] served in [employer]. Smoking Status: Former smoker Past Alcohol Use History: None Reported Additional Past Alcohol Use History / Comment(s): Pt started smoking in 1964 and quit in 2002. He smoked 2-3 ppd. Past Drug Use History: None Reported - Past Family History Father History Unknown: Yes Additional Family Medical History / Comment(s): Pt does not know his father's history. His parents were when he was 6 yrs old. Mother History Unknown: Yes Family Medical History: Cancer Additional Family Medical History / Comment(s): Pt states mother had some form of cancer which she from at the age of 77yrs. Medications and Allergies Home Medications Medication Instructions Recorded Confirmed Type Isosorbide Mononitrate [Imdur] 30 mg PO DAILY 06/07/14 07/17/21 History metFORMIN HCL [Glucophage] 1,000 mg PO BID 06/07/14 07/17/21 History Ferrous Sulfate [Iron (65 MG 325 mg PO DAILY 03/07/16 07/17/21 History Elemental)] Insulin NPH Hum/Reg Insulin Hm 20 unit SQ AC-BRKFST #0 07/29/17 07/17/21 Rx [NovoLIN 70-30 100 UNIT/ML VIAL] Furosemide [Lasix] 20 mg PO DAILY 07/11/19 07/17/21 History Magnesium Oxide [Mag-Ox] 250 mg PO DAILY 07/11/19 07/17/21 History Aspirin 81 mg PO DAILY chew 08/26/20 07/17/21 Rx Atorvastatin [Lipitor] 80 mg PO DAILY #30 tab 08/26/20 07/17/21 Rx carvediloL [Coreg*] 12.5 mg PO BID-W/MEALS tab 08/26/20 07/17/21 Rx lisinopriL [Zestril] 2.5 mg PO DAILY #30 tab 08/26/20 07/17/21 Rx Gabapentin [Neurontin] 100 mg PO BID 07/17/21 07/17/21 History Meloxicam [Mobic] 7.5 mg PO DAILY 07/17/21 07/17/21 History Nitroglycerin Sl Tabs [Nitrostat] 0.4 mg SUBLINGUAL Q5M PRN 07/17/21 07/17/21 History allopurinoL [Zyloprim] 100 mg PO DAILY 07/17/21 07/17/21 History Allergies Allergy/AdvReac Type Severity Reaction Status Date / Time No Known Allergies Allergy Verified 07/17/21 21:41 Physical Exam Vitals: Vital Signs Temp Pulse Pulse Resp BP Pulse Ox 07/18/21 07:20 69 7 L 99 07/18/21 07:10 66 12 126/56 99 07/18/21 07:00 70 11 L 109/51 99 07/18/21 06:50 71 12 109/51 98 07/18/21 06:40 67 12 111/54 99 07/18/21 06:30 69 12 116/54 98 07/18/21 06:20 67 11 L 116/54 98 07/18/21 06:10 66 12 114/54 99 07/18/21 06:00 74 12 114/62 98 07/18/21 05:50 75 12 114/62 98 07/18/21 05:40 78 11 L 119/69 98 07/18/21 05:30 79 10 L 105/59 98 07/18/21 05:20 73 18 105/59 97 07/18/21 05:10 72 11 L 101/46 98 07/18/21 05:00 71 11 L 100/51 97 07/18/21 04:50 70 12 100/51 97 07/18/21 04:40 69 12 116/54 97 07/18/21 04:35 97.7 F 74 18 105/59 07/18/21 04:30 78 12 125/56 98 07/18/21 04:20 78 11 L 125/56 92 L 07/18/21 04:10 77 11 L 109/57 88 L 07/18/21 04:00 97.8 F 71 72 18 121/57 96 07/18/21 03:50 73 12 121/57 98 07/18/21 03:40 77 12 125/68 98 07/18/21 03:33 97.8 F 76 15 125/68 07/18/21 03:30 79 12 110/52 07/18/21 03:20 74 17 110/52 98 07/18/21 03:10 78 13 111/47 99 07/18/21 03:03 97.8 F 77 12 127/57 07/18/21 03:00 78 11 L 123/51 07/18/21 02:53 97.9 F 76 12 123/51 07/18/21 02:50 75 13 123/51 99 07/18/21 02:40 73 14 87/43 95 07/18/21 02:30 71 13 99/52 90 L 07/18/21 02:22 97.5 F L 73 12 99/52 98 07/18/21 02:20 79 20 99/52 98 07/18/21 02:10 76 11 L 102/53 97 07/18/21 02:00 72 12 112/52 98 07/18/21 01:50 74 13 112/52 98 07/18/21 01:40 73 13 113/44 98 07/18/21 01:30 76 8 L 107/40 100 07/18/21 01:20 18 107/40 07/18/21 01:15 97.5 F L 11 L 107/40 07/18/21 00:54 98.4 F 77 20 76/31 98 07/18/21 00:48 88/42 07/18/21 00:24 98.1 F 77 22 71/35 99 07/18/21 00:14 98.3 F 76 20 76/31 100 07/17/21 23:44 98 08/24/21 22:35 87 20 87/40 100 07/17/21 20:16 81 20 97/54 99 07/17/21 20:11 97.7 F 80 20 86/42 100 Intake and Output 07/17/21 07/18/21 07/18/21 22:59 06:59 14:59 Intake Total 1021 Output Total 450 Balance 571 Intake: Intake, IV Titration 70 Amount Sodium Chloride 0.9% 500 30 ml 500 ml @ 999 mls/hr IV .Q31M ONE Rx#:[id number] Sodium Chloride 0.9% 500 40 ml @ 999 mls/hr IV .Q31M STA Rx#:[id number] Blood Product 951 Rc As-1 Unit 0 [id number] Rc As-1 Unit 310 [id number] Output: Urine 450 Other: Voiding Method External Catheter Weight 114.305 kg 114.305 kg GENERAL: The patient is well nourished and he is obese and his breathing is nonlabored and he is breathing comfortably for now. VITAL SIGNS: Heart rate, blood pressure, respiratory rate reviewed as recorded in nurse's notes. EYES: Pupils are round and reactive. Extraocular movements are intact. No conjunctival / lid redness or swelling. ENT: No external evidence of injury, swelling, or ecchymosis. Airway is patent. Throat is clear. NECK: Nontender. No swelling or evidence of injury. No subcutaneous emphysema. Trachea is midline. No thyroid mass. HEART: Regular rate and rhythm. Good peripheral pulses. LUNGS/CHEST: Breath sounds clear and equal bilaterally. No rales, rhonchi, or wheezes. No ecchymosis, subcutaneous emphysema, or tenderness. ABDOMEN: Abdomen soft without tenderness. No palpable masses or organomegaly. No peritoneal signs. No abdominal wall swelling or ecchymosis. Rectal exam: There is no hemorrhage identified. There is dark stool noted on digital rectal examination and Hemoccult is sent. EXTREMITIES: Swelling noted to the right lower extremity primarily in the knee and distal to this with postop changes noted. No evidence of erythema or drainage. No thoracolumbar tenderness. The tuan are still in place in the right knee. No evidence of any hematoma. No swelling. NEUROLOGIC: Sensation is grossly intact. Cranial nerve exam reveals face is symmetrical, tongue is midline, speech is clear. SKIN: No abrasions or ecchymosis is noted. No induration or masses noted. Appears fairly pale PSYCHIATRIC: Alert and oriented. Appropriate behavior and judgment. Results - Laboratory Findings CBC and BMP: 07/18/21 07:00 07/18/21 07:00 ABG WBC 11.2 k/uL (3.8-10.6) H 07/18/21 07:00 RBC 1.94 m/uL (4.30-5.90) L 07/18/21 07:00 Hgb 6.6 gm/dL (13.0-17.5) L* D 07/18/21 07:00 Hct 20.2 % (39.0-53.0) L 07/18/21 07:00 MCV 104.2 fL (80.0-100.0) H D 07/18/21 07:00 MCH 34.1 pg (25.0-35.0) 07/18/21 07:00 MCHC 32.7 g/dL (31.0-37.0) 07/18/21 07:00 RDW 19.0 % (11.5-15.5) H 07/18/21 07:00 Plt Count 200 k/uL (150-450) 07/18/21 07:00 MPV 7.5 07/18/21 07:00 Neutrophils % (Manual) 73 % 07/17/21 21:13 Band Neuts % (Manual) 6 % 07/17/21 21:13 Lymphocytes % (Manual) 12 % 07/17/21 21:13 Monocytes % (Manual) 7 % 07/17/21 21:13 Eosinophils % (Manual) 1 % 07/17/21 21:13 Metamyelocytes % 1 % 07/17/21 21:13 Neutrophils # (Manual) 12.80 k/uL (1.3-7.7) H 07/17/21 21:13 Lymphocytes # (Manual) 1.96 k/uL (1.0-4.8) 07/17/21 21:13 Monocytes # (Manual) 1.14 k/uL (0-1.0) H 07/17/21 21:13 Eosinophils # (Manual) 0.16 k/uL (0-0.7) 07/17/21 21:13 Metamyelocytes # (Man) 0.16 k/uL (0) H 07/17/21 21:13 Nucleated RBCs 5 /100 WBC (0-0) H 07/17/21 21:13 Manual Slide Review Performed 07/17/21 21:13 Polychromasia Present 07/17/21 21:13 Hypochromasia Slight 07/18/21 07:00 Poikilocytosis Moderate 07/18/21 07:00 Poikilocytosis (manual Present 07/17/21 21:13 Anisocytosis Slight 07/18/21 07:00 Anisocytosis (manual) Present 07/17/21 21:13 Macrocytosis Moderate 07/18/21 07:00 Tear Drop Cells Present 07/17/21 21:13 Sodium 135 mmol/L (137-145) L 07/18/21 07:00 Potassium 5.8 mmol/L (3.5-5.1) H 07/18/21 07:00 Chloride 109 mmol/L (98-107) H 07/18/21 07:00 Carbon Dioxide 21 mmol/L (22-30) L 07/18/21 07:00 Anion Gap 5 mmol/L 07/18/21 07:00 BUN 57 mg/dL (9-20) H 07/18/21 07:00 Creatinine 1.23 mg/dL (0.66-1.25) 07/18/21 07:00 Est GFR (CKD-EPI)AfAm 67 (>60 ml/min/1.73 sqM) 07/18/21 07:00 Est GFR (CKD-EPI)NonAf 58 (>60 ml/min/1.73 sqM) 07/18/21 07:00 Glucose 122 mg/dL (74-99) H 07/18/21 07:00 POC Glucose (mg/dL) 131 mg/dL (75-99) H 07/18/21 07:28 POC Glu [employer] ID Bobbi Rose A 07/18/21 07:28 Calcium 8.4 mg/dL (8.4-10.2) 07/18/21 07:00 Magnesium 2.8 mg/dL (1.6-2.3) H 07/18/21 07:00 Total Bilirubin 1.8 mg/dL (0.2-1.3) H 07/17/21 21:13 AST 41 U/L (17-59) 07/17/21 21:13 ALT 33 U/L (4-49) 07/17/21 21:13 Alkaline Phosphatase 108 U/L (38-126) 07/17/21 21:13 Troponin I <0.012 ng/mL (0.000-0.034) 07/18/21 07:15 NT-Pro-B Natriuret Pep 376 pg/mL 07/17/21 21:13 Total Protein 5.9 g/dL (6.3-8.2) L 07/17/21 21:13 Albumin 3.1 g/dL (3.5-5.0) L 07/17/21 21:13 Urine Color Yellow 07/18/21 05:50 Urine Appearance Clear (Clear) 07/18/21 05:50 Urine pH 5.0 (5.0-8.0) 07/18/21 05:50 Ur Specific [place] 1.038 (1.001-1.035) H 07/18/21 05:50 Urine Protein Negative (Negative) 07/18/21 05:50 Urine Glucose (UA) Negative (Negative) 07/18/21 05:50 Urine Ketones Negative (Negative) 07/18/21 05:50 Urine Blood Small (Negative) H 07/18/21 05:50 Urine Nitrite Negative (Negative) 07/18/21 05:50 Urine Bilirubin Negative (Negative) 07/18/21 05:50 Urine Urobilinogen <2.0 mg/dL (<2.0) 07/18/21 05:50 Ur Leukocyte Esterase Negative (Negative) 07/18/21 05:50 Urine RBC 2 /hpf (0-5) 07/18/21 05:50 Urine WBC 4 /hpf (0-5) 07/18/21 05:50 Ur Squamous Epith Cells <1 /hpf (0-4) 07/18/21 05:50 Urine Bacteria Rare /hpf (None) H 07/18/21 05:50 Urine Mucus Rare /hpf (None) H 07/18/21 05:50 Stool Occult Blood Positive (Negative) 07/17/21 22:36 PT/INR, D-dimer PT 11.4 sec (9.0-12.0) 07/17/21 21:13 INR 1.1 (<1.2) 07/17/21 21:13 D-Dimer 1.87 mg/L FEU (<0.60) H 07/17/21 21:13 Abnormal lab findings: Abnormal Labs 07/17/21 07/17/21 07/17/21 21:13 21:13 21:13 WBC 16.3 H RBC 1.53 L Hgb 5.3 L* Hct 16.6 L* MCV 108.5 H MCHC RDW 19.8 H Neutrophils # (Manual) 12.80 H Monocytes # (Manual) 1.14 H Metamyelocytes # (Man) 0.16 H Nucleated RBCs 5 H Macrocytosis Marked A APTT 19.4 L D-Dimer 1.87 H Sodium 134 L Potassium 6.4 H* Chloride Carbon Dioxide 20 L BUN 60 H Creatinine 1.34 H Glucose 126 H POC Glucose (mg/dL) Magnesium 2.7 H Total Bilirubin 1.8 H Total Protein 5.9 L Albumin 3.1 L Ur Specific [place] Urine Blood Urine Bacteria Urine Mucus Crossmatch 07/17/21 07/17/21 07/17/21 22:09 22:25 22:36 WBC 12.1 H RBC 1.35 L Hgb 4.5 L* Hct 14.7 L* MCV 109.2 H MCHC 30.8 L RDW 19.7 H Neutrophils # (Manual) Monocytes # (Manual) Metamyelocytes # (Man) Nucleated RBCs Macrocytosis Marked A APTT D-Dimer Sodium Potassium Chloride Carbon Dioxide BUN Creatinine Glucose POC Glucose (mg/dL) 331 H Magnesium Total Bilirubin Total Protein Albumin Ur Specific [place] Urine Blood Urine Bacteria Urine Mucus Crossmatch See Detail 07/18/21 07/18/21 07/18/21 01:15 05:50 07:00 WBC 11.2 H RBC 1.94 L Hgb 6.6 L* D Hct 20.2 L MCV 104.2 H D MCHC RDW 19.0 H Neutrophils # (Manual) Monocytes # (Manual) Metamyelocytes # (Man) Nucleated RBCs Macrocytosis APTT D-Dimer Sodium Potassium Chloride Carbon Dioxide BUN Creatinine Glucose POC Glucose (mg/dL) 145 H Magnesium Total Bilirubin Total Protein Albumin Ur Specific [place] 1.038 H Urine Blood Small H Urine Bacteria Rare H Urine Mucus Rare H Crossmatch 07/18/21 07/18/21 07:00 07:28 WBC RBC Hgb Hct MCV MCHC RDW Neutrophils # (Manual) Monocytes # (Manual) Metamyelocytes # (Man) Nucleated RBCs Macrocytosis APTT D-Dimer Sodium 135 L Potassium 5.8 H Chloride 109 H Carbon Dioxide 21 L BUN 57 H Creatinine Glucose 122 H POC Glucose (mg/dL) 131 H Magnesium 2.8 H Total Bilirubin Total Protein Albumin Ur Specific [place] Urine Blood Urine Bacteria Urine Mucus Crossmatch - Diagnostic Findings Chest x-ray: image reviewed Assessment and Plan Plan: 1 chest pain due to severe anemia, unlikely to be related to an acute coronary event. The patient is known to have underlying CAD and mismatch created by the severe anemia probably dose his ongoing chest pain. Currently is chest tube with a total of 2 units of packed RBC and the patient is currently free of any chest pain. EKGs negative. Cardiac enzymes are negative. 2 severe anemia with a hemoglobin of 4.5 at the time of admission, transfused w ith a total of 2 units of packed RBC. Consider upper GI bleed. Currently on aspirin. Correlation profile is within normal limits. No other antiplatelet agents given to this patient. No anticoagulants utilize 3 coronary artery disease with multivessel involvement. Last cardiac catheterization from August 2020 showed nonocclusive disease. He has undergone multiple PCI's and stenting 4 COPD, with an FEV1 of 66% of predicted, currently inactive in stable 5 ischemic artery myopathy with an ejection fraction of 35-40% 6 previous history of nonsustained V. tach 7 recent right knee replacement, completed approximately 2 weeks ago without any complications and the surgical wound site is dry clean and intact 8 diabetes mellitus 9 hyperlipidemia 10 hypertension. Note that the patient was quite hypotensive the time of admission and his blood pressure improved with fluid resuscitation and blood products. 11 peripheral vascular disease 12 gout. 13 acute kidney injury likely secondary to above 14 acute hyperkalemia, treated and the potassium level is down to 5.8 Plan Continue IV fluids at 40 mL an hour The patient additional packed and it RBC making a total of 3 units GI consultation for EGD and colonoscopy. The patient a positive Hemoccult, suspect an upper GI bleed Keep aspirin on hold Surgical wound site over the right areas dry clean and intact IV Protonix Cardiology consultation for the chest pain Resume all medications We'll continue to follow and we'll keep the patient in the ICU.
[2021-07-18] MEDS: MAGNESIUM OXIDE 400 MG TAB PO SCH (10:11)
[2021-07-18] MEDS: allopurinoL 100 MG TAB PO SCH (10:11)
[2021-07-18] MEDS: GABAPENTIN 100 MG CAP PO SCH ×2 (10:12→20:54)
[2021-07-18] MEDS: FERROUS SULFATE 325 MG TAB PO SCH (10:12)
[2021-07-18] MEDS: ATORVASTATIN 80 MG TAB PO SCH (10:12)
--- NOTE | 2021-07-18 10:33 | P.CRDCN ---
History of Present Illness History of present illness: This is a 74-year old male with a past medical history significant for coronary artery disease s/p multiple PCI to RCA, diabetes mellitus, hypertension, hyperlipidemia, COPD, ischemic cardiomyopathy, systolic heart failure. Patient follows in the office with Dr. Morrow. We have been asked to see the patient in consultation for chest pain. Patient presents to the hospital 07/17 with complaints of chest pain. He presented to the hospital from the [facility]. He had a total right knee surgery approximately 2 weeks ago at [facility]. Patient states that his chest pain started 2 days ago. It was located center and left of his chest. It is non-radiating, non exertional. He did have associated shortness of breath. He denies nausea, diaphoresis, lightheadedness or dizziness. He denies any specific alleviating or aggravating factors. He does endorse feeling tired and fatigued lately. He denies any blood in his stool or urine when at Rehab. He is former smoker quit in 2002. On admission, patient's initial blood pressure 86/42. EKG with no acute ischemic changes. Patient was given 2 units of PRBCs. Started on IV fluids and IV protonix. He was given Kayexalate, IV bicarb and D50 insulin for a potassium of 6.4 with improvement to 5.8. Patient did receive 325mg of aspirin in the ER. DIAGNOSTICS: EKG reveals sinus rhythm, HR 84 right bundle branch block, left axis deviation, T wave inversions in leads I, aVL, V2-V6. Prior EKG appear similar. CT chest- negative for PE. Some some segmental atelectasis at the lung bases. Cardiomegaly increased significantly compared to exam. Laboratory data: Hemoglobin 4.5, WBC 12.1, platelets 219, sodium 135, potassium 5.8, BUN 57, serum creatinine 1.23, magnesium 2.8, troponin negative 3 stool occult blood-positive Most recent cardiac catheterization 08/2020- Patent stent in proximal RCA, Mild to moderate in-stent restenosis nonobstructive disease involving the distal RCA, mild disease involving the left coronary system Most recent echocardiogram 08/2020, EF 35-40%, inferior hypokinesis, LA is mildly dilated, mild to moderate mitral regurgitation, mild tricuspid regurgitation. Current home cardiac medications include when necessary sublingual nitro, lisinopril 2.5 mg daily, magnesium oxide 250 mg daily, Imdur 30 mg daily, carvedilol 12.5 mg twice a day, Lasix 20 mg daily, atorvastatin 80 mg daily, aspirin 81 mg daily REVIEW OF SYSTEMS: At the time of my exam: CONSTITUTIONAL: Denies fever or chills. +fatigued +feeling tired HEENT: Denies blurred vision, vision changes, or eye pain. Denies hemoptysis CARDIOVASCULAR: Reports chest pain. Denies orthopnea, PND or palpitations RESPIRATORY: No shortness of breath. GASTROINTESTINAL: Denies abdominal pain. Denies nausea or vomiting. HEMATOLOGIC: Denies bleeding disorders. GENITOURINARY: Denies any blood in urine. SKIN: Denies pruitis. Denies rash. PHYSICAL EXAM: VITAL SIGNS: Reviewed. GENERAL: Well-developed in no acute distress. HEENT: Head is normocephalic. Pupils are equal, round. Sclerae anicteric. Mucous membranes of the mouth are moist. Neck supple. No JVD or thyromegaly LUNGS: Respirations even and unlabored. Lungs diminished. HEART: Regular rate and rhythm. S1 and S2 heard. Systolic murmur noted at apex ABDOMEN: Soft. Nondistended. Nontender. EXTREMITIES: Normal range of motion. No clubbing or cyanosis. Peripheral pulses intact. 2+ right lower extremity edema, 1+ left lower extremity edema SKIN: Right knee covered in bandages NEUROLOGIC: Patient falls asleep during exam, however he is easily arousable and alert. Oriented x 3. ASSESSMENT: Chest pain, most likely due to supply demand mismatch due to acute anemia, troponin negative x 3. EKG with no significant ischemic changes, patient is currently does not have any further chest pain Severe Anemia Hyperkalemia Acute Kidney Injury History of coronary artery disease s/p PCI RCA Diabetes mellitus, type II Hypertriglyceridemia Hyperlipidemia Hypertension Ischemic cardiomyopathy, EF 35-40% Chronic systolic congestive heart failure COPD Obesity: BMI 39.5 History of recent right knee surgery PLAN: -Echocardiogram ordered, will follow up on results -No further cardiac workup indicated at this time -Patient's hemoglobin returned to 6.6 this morning, plan for another unit of PRBC -GI is on consult -Aspirin and ACEI on hold -Carvedilol on hold due to hypotension, recommend restarting when tolerated -Continue statin -Further recommendations based on clinical course Nurse practitioner note has been reviewed by physician. Signing provider agrees with the documented findings, assessment, and plan of care. Past Medical History Past Medical History: Coronary Artery Disease (CAD), Chest Pain / Angina, Heart Failure, COPD, Diabetes Mellitus, GERD/Reflux, Hyperlipidemia, Hypertension, Myocardial Infarction (MA), Pneumonia, Supraventricular Tachycardia (SVT), Vascular Disorder Additional Past Medical History / Comment(s): Ischemic cardiomyopathy, nonsustained ventriclar arrhythmia, systolic heart failure, MA x 2 in 2001 and 1994, thrombocytopenia, cellulitis 2ndary to local trauma L patella, kidney stones which pt believes he passed, gout bilateral feet/ toes, occasional bilateral tinnitis, past 3-4 years intermittent bilateral leg pain but pt states he now takes quinine when this occurs and has relief of pain. 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 Past Anesthesia/Blood Transfusion Reactions: No Reported Reaction Additional Past Anesthesia/Blood Transfusion Reaction / Comment(s): never had a blood tranfusion Date of Last Stent Placement:: 02/05/19 Past Psychological History: No Psychological Hx Reported Additional Psychological History / Comment(s): Pt resides with his girlfriend in an apartment with elevators. He is independent. He is an [employer] served in [employer]. Smoking Status: Former smoker Past Alcohol Use History: None Reported Additional Past Alcohol Use History / Comment(s): Pt started smoking in 1964 and quit in 2002. He smoked 2-3 ppd. Past Drug Use History: None Reported - Past Family History Father History Unknown: Yes Additional Family Medical History / Comment(s): Pt does not know his father's history. His parents were when he was 6 yrs old. Mother History Unknown: Yes Family Medical History: Cancer Additional Family Medical History / Comment(s): Pt states mother had some form of cancer which she from at the age of 77yrs. Medications and Allergies Home Medications Medication Instructions Recorded Confirmed Type Isosorbide Mononitrate [Imdur] 30 mg PO DAILY 06/07/14 07/17/21 History metFORMIN HCL [Glucophage] 1,000 mg PO BID 06/07/14 07/17/21 History Ferrous Sulfate [Iron (65 MG 325 mg PO DAILY 03/07/16 07/17/21 History Elemental)] Insulin NPH Hum/Reg Insulin Hm 20 unit SQ AC-BRKFST #0 07/29/17 07/17/21 Rx [NovoLIN 70-30 100 UNIT/ML VIAL] Furosemide [Lasix] 20 mg PO DAILY 07/11/19 07/17/21 History Magnesium Oxide [Mag-Ox] 250 mg PO DAILY 07/11/19 07/17/21 History Aspirin 81 mg PO DAILY chew 08/26/20 07/17/21 Rx Atorvastatin [Lipitor] 80 mg PO DAILY #30 tab 08/26/20 07/17/21 Rx carvediloL [Coreg*] 12.5 mg PO BID-W/MEALS tab 08/26/20 07/17/21 Rx lisinopriL [Zestril] 2.5 mg PO DAILY #30 tab 08/26/20 07/17/21 Rx Gabapentin [Neurontin] 100 mg PO BID 07/17/21 07/17/21 History Meloxicam [Mobic] 7.5 mg PO DAILY 07/17/21 07/17/21 History Nitroglycerin Sl Tabs [Nitrostat] 0.4 mg SUBLINGUAL Q5M PRN 07/17/21 07/17/21 History allopurinoL [Zyloprim] 100 mg PO DAILY 07/17/21 07/17/21 History Allergies Allergy/AdvReac Type Severity Reaction Status Date / Time No Known Allergies Allergy Verified 07/17/21 21:41 Physical Exam Vitals: Vital Signs Temp Pulse Pulse Resp BP Pulse Ox 07/18/21 06:10 66 12 114/54 99 07/18/21 06:00 74 12 114/62 98 07/18/21 05:50 75 12 114/62 98 07/18/21 05:40 78 11 L 119/69 98 07/18/21 05:30 79 10 L 105/59 98 07/18/21 05:20 73 18 105/59 97 07/18/21 05:10 72 11 L 101/46 98 07/18/21 05:00 71 11 L 100/51 97 07/18/21 04:50 70 12 100/51 97 07/18/21 04:40 69 12 116/54 97 07/18/21 04:35 97.7 F 74 18 105/59 07/18/21 04:30 78 12 125/56 98 07/18/21 04:20 78 11 L 125/56 92 L 07/18/21 04:10 77 11 L 109/57 88 L 07/18/21 04:00 97.8 F 71 72 18 121/57 96 07/18/21 03:50 73 12 121/57 98 07/18/21 03:40 77 12 125/68 98 07/18/21 03:33 97.8 F 76 15 125/68 07/18/21 03:30 79 12 110/52 07/18/21 03:20 74 17 110/52 98 07/18/21 03:10 78 13 111/47 99 07/18/21 03:03 97.8 F 77 12 127/57 07/18/21 03:00 78 11 L 123/51 07/18/21 02:53 97.9 F 76 12 123/51 07/18/21 02:50 75 13 123/51 99 07/18/21 02:40 73 14 87/43 95 07/18/21 02:30 71 13 99/52 90 L 07/18/21 02:22 97.5 F L 73 12 99/52 98 07/18/21 02:20 79 20 99/52 98 07/18/21 02:10 76 11 L 102/53 97 07/18/21 02:00 72 12 112/52 98 07/18/21 01:50 74 13 112/52 98 07/18/21 01:40 73 13 113/44 98 07/18/21 01:30 76 8 L 107/40 100 07/18/21 01:20 18 107/40 07/18/21 01:15 97.5 F L 11 L 107/40 07/18/21 00:54 98.4 F 77 20 76/31 98 07/18/21 00:48 88/42 07/18/21 00:24 98.1 F 77 22 71/35 99 07/18/21 00:14 98.3 F 76 20 76/31 100 07/17/21 23:44 98 07/17/21 22:35 87 20 87/40 100 07/17/21 20:16 81 20 97/54 99 07/17/21 20:11 97.7 F 80 20 86/42 100 Intake and Output 07/17/21 07/17/21 07/18/21 14:59 22:59 06:59 Intake Total 1021 Output Total 350 Balance 671 Intake: Intake, IV Titration 70 Amount Sodium Chloride 0.9% 500 30 ml 500 ml @ 999 mls/hr IV .Q31M ONE Rx#:[id number] Sodium Chloride 0.9% 500 40 ml @ 999 mls/hr IV .Q31M STA Rx#:[id number] Blood Product 951 Rc As-1 Unit 0 [id number] Rc As-1 Unit 310 [id number] Output: Urine 350 Other: Voiding Method External Catheter Weight 114.305 kg 114.305 kg Results 07/18/21 07:00 07/18/21 07:00 Cardiac Enzymes 07/17/21 07/17/21 07/18/21 Range/Units 21:13 21:13 00:25 AST 41 (17-59) U/L Troponin I <0.012 <0.012 (0.000-0.034) ng/mL Coagulation 07/17/21 Range/Units 21:13 PT 11.4 (9.0-12.0) sec APTT 19.4 L (22.0-30.0) sec CBC 07/17/21 07/17/21 Range/Units 21:13 22:36 WBC 16.3 H 12.1 H (3.8-10.6) k/uL RBC 1.53 L 1.35 L (4.30-5.90) m/uL Hgb 5.3 L* 4.5 L* (13.0-17.5) gm/dL Hct 16.6 L* 14.7 L* (39.0-53.0) % Plt Count 286 219 (150-450) k/uL Comprehensive Metabolic Panel 07/17/21 Range/Units 21:13 Sodium 134 L (137-145) mmol/L Potassium 6.4 H* (3.5-5.1) mmol/L Chloride 105 (98-107) mmol/L Carbon Dioxide 20 L (22-30) mmol/L BUN 60 H (9-20) mg/dL Creatinine 1.34 H (0.66-1.25) mg/dL Glucose 126 H (74-99) mg/dL Calcium 8.9 (8.4-10.2) mg/dL AST 41 (17-59) U/L ALT 33 (4-49) U/L Alkaline Phosphatase 108 (38-126) U/L Total Protein 5.9 L (6.3-8.2) g/dL Albumin 3.1 L (3.5-5.0) g/dL Current Medications Generic Name Dose Route Start Last Admin Trade Name Freq PRN Reason Stop Dose Admin Allopurinol 100 mg 07/18/21 09:00 Allopurinol 100 Mg Tab PO DAILY [facility] Atorvastatin Calcium 80 mg 07/18/21 09:00 Atorvastatin 80 Mg Tab PO DAILY [facility] Fentanyl Citrate 50 mcg 07/17/21 22:38 07/18/21 01:33 Fentanyl (Pf) 50 Mcg/Ml 2 Ml Amp IVP 50 mcg Q4HR PRN Administration Severe Pain Fentanyl Citrate 50 mcg 07/17/21 23:51 Fentanyl (Pf) 50 Mcg/Ml 2 Ml Amp IVP Q4HR PRN Severe Pain Ferrous Sulfate 325 mg 07/18/21 09:00 Ferrous Sulfate 325 Mg Tab PO DAILY [facility] Furosemide 20 mg 07/18/21 09:00 Furosemide 20 Mg Tab PO DAILY [facility] Gabapentin 100 mg 07/18/21 09:00 Gabapentin 100 Mg Cap PO BID [facility] Insulin Human NPH 20 unit 07/18/21 07:30 Insulin Nph 300 Unit/3 Ml Vial SQ AC-BRKFST [facility] Magnesium Oxide 400 mg 07/18/21 09:00 Magnesium Oxide 400 Mg Tab PO DAILY [facility] Metformin HCl 1,000 mg 07/18/21 09:00 Metformin 500 Mg Tab PO BID [facility] Naloxone HCl 0.2 mg 07/18/21 02:14 Naloxone 0.4 Mg/Ml 1 Ml Vial IV Q2M PRN Opioid Reversal Nitroglycerin 0.5 inch 07/18/21 00:00 07/18/21 00:49 Nitroglycerin Oint 1 Inch/Gm Packet TOPICAL Not Given Q6HR [facility] Ondansetron HCl 4 mg 07/17/21 23:52 Ondansetron 4 Mg/2 Ml Vial IVP Q4H PRN Nausea Pantoprazole Sodium 40 mg 07/18/21 09:00 Pantoprazole 40 Mg/10 Ml Vial IVP BID BRINDA Intake and Output 07/17/21 07/17/21 07/18/21 14:59 22:59 06:59 Intake Total 1021 Output Total 350 Balance 671 Intake: Intake, IV Titration 70 Amount Sodium Chloride 0.9% 500 30 ml 500 ml @ 999 mls/hr IV .Q31M ONE Rx#:[id number] Sodium Chloride 0.9% 500 40 ml @ 999 mls/hr IV .Q31M STA Rx#:[id number] Blood Product 951 Rc As-1 Unit 0 [id number] Rc As-1 Unit 310 [id number] Output: Urine 350 Other: Voiding Method External Catheter Weight 114.305 kg 114.305 kg Patient Weight 07/18/21 06:59 Weight 114.305 kg 07/17/21 22:36 07/17/21 21:13
[2021-07-18 11:08] LABS: Basophilic Stippling Present; Poikilocytosis (M) Present; Polychromasia Present
[2021-07-18] MEDS ORDERED: ACETAMINOPHEN TAB 325 MG TAB PO STA (11:25)
[2021-07-18 13:11] LABS: Chol/HDL Ratio 5.62; LDL Cholesterol,Calculated 19.6 mg/dL (0.0-131.0); VLDL Calculation 40.4 mg/dL (5.00-40.00)
[2021-07-18 13:54] LABS: Anisocytosis Slight; HCT 25.2 % (39.0-53.0); Hypochromasia Moderate; MCH 34.6 pg (25.0-35.0); MCHC 33.2 g/dL (31.0-37.0); MCV 104.1 fL (80.0-100.0); Macrocytosis Moderate; Mean Platelet Volume 7.9; Platelet Count 202 k/uL (150-450); Poikilocytosis Moderate; RBC 2.42 m/uL (4.30-5.90); RDW 18.3 % (11.5-15.5); WBC 13.2 k/uL (3.8-10.6)
[2021-07-18 14:10] LABS: HGB 8.4 gm/dL (13.0-17.5)
--- NOTE | 2021-07-18 14:24 | P.CONS ---
History of Present Illness - Reason for Consult Consult date: 07/18/21 GI bleed Requesting physician: James Irizarry - Chief Complaint Chest pain - History of Present Illness This is a pleasant 75-year-old male patient who presented to the emergency department with complaints of chest pain. He has a past medical history of coronary artery disease and has undergone multiple stenting. He's had 2 previous MIs and a history of ischemic cardiomyopathy, COPD, diabetes mellitus, hypertension, DIAZ, hyperlipidemia and peripheral vascular disease. On admission the patient was noted to have a hemoglobin of 5.3 and subsequently 4.5. He had 2 units PRBC transfusion. Repeat labs WBC 11, hemoglobin 6.6, hematocrit 20, platelet count 200,000 and he had a positive occult stool. Patient recently underwent right knee surgery approximately 2 weeks ago and was started on meloxicam. He has been taking that daily. He denies any previous history of peptic ulcer disease or GI bleed. States these last colonoscopy greater than 10 years ago. He denies any black stool, blood in his stool, nausea, vomiting, or abdominal pain. Patient is currently in the ICU for observation. He denies any anticoagulation or any other NSAIDs, he does take a low-dose daily aspirin daily. Review of Systems REVIEW OF SYSTEMS: CARDIOPULMONARY: Chest pain. No shortness of breath Gastrointestinal: No abdominal pain.. No nausea or vomiting. No hematemesis, coffee-ground emesis. No rectal bleeding, or melena. GENITOURINARY: No dysuria or hematuria. MUSCULOSKELETAL: Reports normal range of motion., Joint pain. SKIN: No rashes. No jaundice. ENDOCRINE: No chills, fevers. No excessive weight gain or loss. No polydipsia or polyuria. PSYCHIATRIC: Unremarkable. NEUROLOGY: No change in mental status. Denies dizziness, headache. ENT: Vision unremarkable. CONSTITUTIONAL: No recent weight loss. No fever, chills, night sweats. Past Medical History Past Medical History: Coronary Artery Disease (CAD), Chest Pain / Angina, Heart Failure, COPD, Diabetes Mellitus, GERD/Reflux, Hyperlipidemia, Hypertension, Myocardial Infarction (DC), Pneumonia, Supraventricular Tachycardia (SVT), Vascular Disorder Additional Past Medical History / Comment(s): Ischemic cardiomyopathy, nonsustained ventriclar arrhythmia, systolic heart failure, DC x 2 in 2001 and 1994, thrombocytopenia, cellulitis 2ndary to local trauma L patella, kidney ston es which pt believes he passed, gout bilateral feet/ toes, occasional bilateral tinnitis, past 3-4 years intermittent bilateral leg pain but pt states he now takes quinine when this occurs and has relief of pain. 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 Past Anesthesia/Blood Transfusion Reactions: No Reported Reaction Additional Past Anesthesia/Blood Transfusion Reaction / Comm: never had a blood tranfusion Date of Last Stent Placement:: 02/05/19 Past Psychological History: No Psychological Hx Reported Additional Psychological History / Comment(s): Pt resides with his girlfriend in an apartment with elevators. He is independent. He is an [employer] in [employer]. Smoking Status: Former smoker Past Alcohol Use History: None Reported Additional Past Alcohol Use History / Comment(s): Pt started smoking in 1964 and quit in 2002. He smoked 2-3 ppd. Past Drug Use History: None Reported - Past Family History Father History Unknown: Yes Additional Family Medical History / Comment(s): Pt does not know his father's history. His parents were when he was 6 yrs old. Mother History Unknown: Yes Family Medical History: Cancer Additional Family Medical History / Comment(s): Pt states mother had some form of cancer which she from at the age of 77yrs. Medications and Allergies Home Medications Medication Instructions Recorded Confirmed Type Isosorbide Mononitrate [Imdur] 30 mg PO DAILY 06/07/14 07/17/21 History metFORMIN HCL [Glucophage] 1,000 mg PO BID 06/07/14 07/17/21 History Ferrous Sulfate [Iron (65 MG 325 mg PO DAILY 03/07/16 07/17/21 History Elemental)] Insulin NPH Hum/Reg Insulin Hm 20 unit SQ AC-BRKFST #0 07/29/17 07/17/21 Rx [NovoLIN 70-30 100 UNIT/ML VIAL] Furosemide [Lasix] 20 mg PO DAILY 07/11/19 07/17/21 History Magnesium Oxide [Mag-Ox] 250 mg PO DAILY 07/11/19 07/17/21 History Aspirin 81 mg PO DAILY chew 08/26/20 07/17/21 Rx Atorvastatin [Lipitor] 80 mg PO DAILY #30 tab 08/26/20 07/17/21 Rx carvediloL [Coreg*] 12.5 mg PO BID-W/MEALS tab 08/26/20 07/17/21 Rx lisinopriL [Zestril] 2.5 mg PO DAILY #30 tab 08/26/20 07/17/21 Rx Gabapentin [Neurontin] 100 mg PO BID 07/17/21 07/17/21 History Meloxicam [Mobic] 7.5 mg PO DAILY 07/17/21 07/17/21 History Nitroglycerin Sl Tabs [Nitrostat] 0.4 mg SUBLINGUAL Q5M PRN 07/17/21 07/17/21 History allopurinoL [Zyloprim] 100 mg PO DAILY 07/17/21 07/17/21 History Allergies Allergy/AdvReac Type Severity Reaction Status Date / Time No Known Allergies Allergy Verified 07/17/21 21:41 Physical Exam Vitals: Vital Signs Temp Pulse Pulse Resp BP Pulse Ox 07/18/21 07:20 69 7 L 99 07/18/21 07:10 66 12 126/56 99 07/18/21 07:00 70 11 L 109/51 99 07/18/21 06:50 71 12 109/51 98 07/18/21 06:40 67 12 111/54 99 07/18/21 06:30 69 12 116/54 98 07/18/21 06:20 67 11 L 116/54 98 07/18/21 06:10 66 12 114/54 99 07/18/21 06:00 74 12 114/62 98 07/18/21 05:50 75 12 114/62 98 07/18/21 05:40 78 11 L 119/69 98 07/18/21 05:30 79 10 L 105/59 98 07/18/21 05:20 73 18 105/59 97 07/18/21 05:10 72 11 L 101/46 98 07/18/21 05:00 71 11 L 100/51 97 07/18/21 04:50 70 12 100/51 97 07/18/21 04:40 69 12 116/54 97 07/18/21 04:35 97.7 F 74 18 105/59 07/18/21 04:30 78 12 125/56 98 07/18/21 04:20 78 11 L 125/56 92 L 07/18/21 04:10 77 11 L 109/57 88 L 07/18/21 04:00 97.8 F 71 72 18 121/57 96 07/18/21 03:50 73 12 121/57 98 07/18/21 03:40 77 12 125/68 98 07/18/21 03:33 97.8 F 76 15 125/68 07/18/21 03:30 79 12 110/52 07/18/21 03:20 74 17 110/52 98 07/18/21 03:10 78 13 111/47 99 07/18/21 03:03 97.8 F 77 12 127/57 07/18/21 03:00 78 11 L 123/51 07/18/21 02:53 97.9 F 76 12 123/51 07/18/21 02:50 75 13 123/51 99 07/18/21 02:40 73 14 87/43 95 07/18/21 02:30 71 13 99/52 90 L 07/18/21 02:22 97.5 F L 73 12 99/52 98 07/18/21 02:20 79 20 99/52 98 07/18/21 02:10 76 11 L 102/53 97 07/18/21 02:00 72 12 112/52 98 07/18/21 01:50 74 13 112/52 98 07/18/21 01:40 73 13 113/44 98 07/18/21 01:30 76 8 L 107/40 100 07/18/21 01:20 18 107/40 07/18/21 01:15 97.5 F L 11 L 107/40 07/18/21 00:54 98.4 F 77 20 76/31 98 07/18/21 00:48 88/42 07/18/21 00:24 98.1 F 77 22 71/35 99 07/18/21 00:14 98.3 F 76 20 76/31 100 07/17/21 23:44 98 07/17/21 22:35 87 20 87/40 100 07/17/21 20:16 81 20 97/54 99 07/17/21 20:11 97.7 F 80 20 86/42 100 Intake and Output 07/17/21 07/18/21 07/18/21 22:59 06:59 14:59 Intake Total 1021 Output Total 450 Balance 571 Intake: Intake, IV Titration 70 Amount Sodium Chloride 0.9% 500 30 ml 500 ml @ 999 mls/hr IV .Q31M ONE Rx#:[id number] Sodium Chloride 0.9% 500 40 ml @ 999 mls/hr IV .Q31M STA Rx#:[id number] Blood Product 951 Rc As-1 Unit 0 [id number] Rc As-1 Unit 310 [id number] Output: Urine 450 Other: Voiding Method External Catheter Weight 114.305 kg 114.305 kg General appearance: The patient is alert, oriented, appears in no acute distress. HET: Head is normocephalic and atraumatic. Conjunctiva pink. Sclera anicteric. Neck: Supple without lymphadenopathy. Trachea midline. Heart: S1 S2. Regular rate and rhythm. Lungs: Clear to auscultation. Abdomen: Soft, epigastric tenderness, nondistended with bowel sounds. No guarding or rigidity. Skin: No rashes. No jaundice. Extremities: Normal skin color and turgor. No pedal edema. Neurological: No focal deficits. Alert and oriented 3.. Results CBC & Chem 7: 07/18/21 13:14 07/18/21 07:00 Labs: Abnormal Lab Results - Last 24 Hours (Table) 07/17/21 07/17/21 07/17/21 Range/Units 21:13 21:13 21:13 WBC 16.3 H (3.8-10.6) k/uL RBC 1.53 L (4.30-5.90) m/uL Hgb 5.3 L* (13.0-17.5) gm/dL Hct 16.6 L* (39.0-53.0) % MCV 108.5 H (80.0-100.0) fL MCHC (31.0-37.0) g/dL RDW 19.8 H (11.5-15.5) % Neutrophils # (Manual) 12.80 H (1.3-7.7) k/uL Monocytes # (Manual) 1.14 H (0-1.0) k/uL Metamyelocytes # (Man) 0.16 H (0) k/uL Nucleated RBCs 5 H (0-0) /100 WBC Macrocytosis Marked A APTT 19.4 L (22.0-30.0) sec D-Dimer 1.87 H (<0.60) mg/L FEU Sodium 134 L (137-145) mmol/L Potassium 6.4 H* (3.5-5.1) mmol/L Chloride (98-107) mmol/L Carbon Dioxide 20 L (22-30) mmol/L BUN 60 H (9-20) mg/dL Creatinine 1.34 H (0.66-1.25) mg/dL Glucose 126 H (74-99) mg/dL POC Glucose (mg/dL) (75-99) mg/dL Magnesium 2.7 H (1.6-2.3) mg/dL Total Bilirubin 1.8 H (0.2-1.3) mg/dL Total Protein 5.9 L (6.3-8.2) g/dL Albumin 3.1 L (3.5-5.0) g/dL Ur Specific [place] (1.001-1.035) Urine Blood (Negative) Urine Bacteria (None) /hpf Urine Mucus (None) /hpf Crossmatch 07/17/21 07/17/21 07/17/21 Range/Units 22:09 22:25 22:36 WBC 12.1 H (3.8-10.6) k/uL RBC 1.35 L (4.30-5.90) m/uL Hgb 4.5 L* (13.0-17.5) gm/dL Hct 14.7 L* (39.0-53.0) % MCV 109.2 H (80.0-100.0) fL MCHC 30.8 L (31.0-37.0) g/dL RDW 19.7 H (11.5-15.5) % Neutrophils # (Manual) (1.3-7.7) k/uL Monocytes # (Manual) (0-1.0) k/uL Metamyelocytes # (Man) (0) k/uL Nucleated RBCs (0-0) /100 WBC Macrocytosis Marked A APTT (22.0-30.0) sec D-Dimer (<0.60) mg/L FEU Sodium (137-145) mmol/L Potassium (3.5-5.1) mmol/L Chloride (98-107) mmol/L Carbon Dioxide (22-30) mmol/L BUN (9-20) mg/dL Creatinine (0.66-1.25) mg/dL Glucose (74-99) mg/dL POC Glucose (mg/dL) 331 H (75-99) mg/dL Magnesium (1.6-2.3) mg/dL Total Bilirubin (0.2-1.3) mg/dL Total Protein (6.3-8.2) g/dL Albumin (3.5-5.0) g/dL Ur Specific [place] (1.001-1.035) Urine Blood (Negative) Urine Bacteria (None) /hpf Urine Mucus (None) /hpf Crossmatch See Detail 07/18/21 07/18/21 07/18/21 Range/Units 01:15 05:50 07:00 WBC (3.8-10.6) k/uL RBC (4.30-5.90) m/uL Hgb (13.0-17.5) gm/dL Hct (39.0-53.0) % MCV (80.0-100.0) fL MCHC (31.0-37.0) g/dL RDW (11.5-15.5) % Neutrophils # (Manual) (1.3-7.7) k/uL Monocytes # (Manual) (0-1.0) k/uL Metamyelocytes # (Man) (0) k/uL Nucleated RBCs (0-0) /100 WBC Macrocytosis APTT (22.0-30.0) sec D-Dimer (<0.60) mg/L FEU Sodium 135 L (137-145) mmol/L Potassium 5.8 H (3.5-5.1) mmol/L Chloride 109 H (98-107) mmol/L Carbon Dioxide 21 L (22-30) mmol/L BUN 57 H (9-20) mg/dL Creatinine (0.66-1.25) mg/dL Glucose 122 H (74-99) mg/dL POC Glucose (mg/dL) 145 H (75-99) mg/dL Magnesium 2.8 H (1.6-2.3) mg/dL Total Bilirubin (0.2-1.3) mg/dL Total Protein (6.3-8.2) g/dL Albumin (3.5-5.0) g/dL Ur Specific [place] 1.038 H (1.001-1.035) Urine Blood Small H (Negative) Urine Bacteria Rare H (None) /hpf Urine Mucus Rare H (None) /hpf Crossmatch 07/18/21 Range/Units 07:28 WBC (3.8-10.6) k/uL RBC (4.30-5.90) m/uL Hgb (13.0-17.5) gm/dL Hct (39.0-53.0) % MCV (80.0-100.0) fL MCHC (31.0-37.0) g/dL RDW (11.5-15.5) % Neutrophils # (Manual) (1.3-7.7) k/uL Monocytes # (Manual) (0-1.0) k/uL Metamyelocytes # (Man) (0) k/uL Nucleated RBCs (0-0) /100 WBC Macrocytosis APTT (22.0-30.0) sec D-Dimer (<0.60) mg/L FEU Sodium (137-145) mmol/L Potassium (3.5-5.1) mmol/L Chloride (98-107) mmol/L Carbon Dioxide (22-30) mmol/L BUN (9-20) mg/dL Creatinine (0.66-1.25) mg/dL Glucose (74-99) mg/dL POC Glucose (mg/dL) 131 H (75-99) mg/dL Magnesium (1.6-2.3) mg/dL Total Bilirubin (0.2-1.3) mg/dL Total Protein (6.3-8.2) g/dL Albumin (3.5-5.0) g/dL Ur Specific [place] (1.001-1.035) Urine Blood (Negative) Urine Bacteria (None) /hpf Urine Mucus (None) /hpf Crossmatch Assessment and Plan (1) GI bleed Narrative/Plan: 75-year-old male who recently underwent right knee surgery and was then extended care facility for rehab came in to the emergency department yesterday with comp laints of chest pain. Has multiple comorbidities including coronary artery disease status post stenting. He denies any anticoagulation. He has been on a daily low-dose aspirin and was prescribed meloxicam after his surgery and has been taking it daily. He denies any previous history of peptic ulcer disease. On admission he was noted to have a hemoglobin of 5.3 with a repeat at 4.5, he was transfused 2 units of PRBC transfusion. This morning the patient's repeat hemoglobin was 6.6 and a another unit of PRBC transfusion was ordered. He denies any previous history of GI bleed. He is never had an upper endoscopy, last colonoscopy greater than 10 years ago. He is denying abdominal pain, nausea, or vomiting. Unclear etiology of anemia, GI bleed needs to be considered. We'll proceed with EGD and colonoscopy tomorrow. Current Visit: Yes Status: Acute Code(s): K92.2 - GASTROINTESTINAL HEMORRHAGE, UNSPECIFIED SNOMED Code(s): 77979062 (2) Anemia Current Visit: Yes Status: Acute Code(s): D64.9 - ANEMIA, UNSPECIFIED SNOMED Code(s): 701444142 Plan: 1. Continue symptomatic and supportive care 2. Transfuse 1 unit PRBC 3. Repeat CBC post transfusion, then every 6 hours 4. Repeat daily CBC, transfuse for hemoglobin less than 7 5. Protonix 40 mg daily 6. Hold NSAIDs 7. Clear liquid diet, nothing by mouth after midnight 8. Bowel prep this evening, will proceed with EGD and colonoscopy tomorrow. Procedures discussed with patient in detail including risks and benefits, patient is willing to proceed with procedures. Thank you for this consultation, we will continue to follow. Dr. Basil Akhtar I agree with the dictator's note, documented as a scribe by Rocio Fleming.
--- NOTE | 2021-07-18 15:52 | P.HPIM ---
History of Present Illness H&P Date: 07/18/21 75 years old male with past medical history of coronary artery disease status post stenting in 2001, history of nonsustained V. tach, ischemic cardiomyopathy EF 35-40%, COPD, type 2 diabetes, GERD, hypertension, hyperlipidemia, gout, tinnitus with recent cardiac cath in August 2020 sugges tive of moderate nonobstructive disease involving distal right RCA had mild disease involving the left coronary system. Medical management was recommended. Patient is a former smoker quit smoking 20 years ago smoked for 35 years and quit 20 years ago. Patient had a total knee arthroplasty one week ago at [facility] and was discharged on meloxicam. Patient started complaining of chest pain 3 days ago associated with nausea and vomiting. Nitro was given at the [facility] with the improvement in symptoms. Patient had multiple episodes of vomiting for the past 2 days which will coffee ground in color. Chest pain was central in location nonradiating and nonexertional. He does complain of shortness of breath associated with chest pain.. Patient felt weak and tired and was sent to the hospital for evaluation On evaluation in the ER patient had a blood pressure on admission was 86/42 pulse 80 respiratory rate 20 afebrile. On assessment of patient's lab, patient hemoglobin of 5.3 on admission repeat check suggested 4.5. Patient underwent 3 units of transition since last night with lead to improvement of hemoglobin to 8.4. Patient denies any black stools but fecal occult in the ER was positive. WBC 12.1 MCV 109.2 platelets 219 d-dimer 1.87 potassium 6.4 sodium 134 20 BUN 60 creatinine 1.34 glucose 331 magnesium 2.7 total bilirubin 1.8 troponin down to negative LDL 73 and VLDL 40 was negative.. Dehydrated UA. Patient seen the pulmonary, GI and cardiology. IV fluids were contributory physical per hour. Initiated on Protonix 40 IV twice a day. Aspirin and meloxicam and Tommy inhibitors held. Would recommend initiating Coreg at 6.25 twice a day. Ec hocardiogram ordered. EGD and colonoscopy tomorrow. clear Liquid diet recommended ROS Constitutional: Denies chills, Denies fever, endorses lethargy and weakness Denies weight loss Eyes: denies decreased vision, denies diplopia, denies discharge, denies pain Ears: deny: decreased hearing Ears, nose, mouth and throat: Denies dental pain, Denies headache, Denies nasal discharge, Denies nose pain Cardiovascular: Endorses chest pain, endorses decreased exercise tolerance, Denies edema, Denies high blood pressure, Denies irregular heart beat, Denies palpitations, Denies paroxysmal nocturnal dyspnea, Denies rapid heart beat, endorses shortness of breath Respiratory: Denies congestion, Denies cough, Denies cough with sputum, Denies dyspnea, Denies home oxygen, Denies wheezing Gastrointestinal: Endorses abdominal pain, Denies change in bowel habits, endorses coffee ground emesis, Denies early satiety, Denies excessive gas, Denies heartburn, endorses hematemesis, Denies hematochezia, Denies loss of appetite, endorses nausea, endorses vomiting Genitourinary: Denies dysuria, Denies flank pain, Denies kidney stones, Denies menorrhagia, Denies urgency, Denies urinary frequency Musculoskeletal: Denies gait dysfunction, Denies limitation of motion, Denies morning stiffness, Denies muscle cramps Integumentary: Denies rash, Denies wounds, Denies brittle nails, Denies change in hair/nails, Denies darkening of skin Neurological: Denies balance difficulties, Denies change in speech, Denies d ouble vision, Denies gait dysfunction, Denies loss of vision, Denies motor disturbance, Denies numbness, Denies paralysis, Denies paresthesias, Denies seizures Psychiatric: Denies anxiety, Denies depression Endocrine: Denies excessive sweating, Denies excessive thirst, Denies high blood sugars, Denies palpitations Hematologic/Lymphatic: Denies easy bruising, Denies lymphadenopathy Social history Patient quit smoking 20 years ago of smoked 2 packs a day for 35 years. Drinks 1 beer a day denies any marijuana use family history Patient does not know his father Mother has history of some kind of cancer at the age of 77 On only child Has one daughter no significant problems Physical exam - Constitutional General appearance: cooperative, no acute distress, obese weighing 2 L of oxygen - EENT Eyes: anicteric sclerae, PERRLA, normal appearance ENT: hearing grossly normal - Neck Neck: no lymphadenopathy, normal ROM, no other, no rigidity, no stridor, no thyromegaly - Respiratory Respiratory: bilateral: CTA, negative: diminished, dullness, rales, rhonchi - Cardiovascular Rhythm: regular Heart sounds: normal: S1, S2 Abnormal Heart Sounds: 2/ 6 systolic murmur, no diastolic murmur, no rub, no S3 Gallop, no S4 Gallop, no click, bilateral lower extremity swelling worse on the left - Gastrointestinal General gastrointestinal: normal bowel sounds, soft nontender epigastric region - Integumentary Integumentary: no rash - Neurologic Neurologic: No motor or sensory deficit - Musculoskeletal Musculoskeletal: gait not assessed strength equal bilaterally right knee with s taples with surrounding inflammation no redness or drainage noted - Psychiatric Psychiatric: A&O x's 3, appropriate affect Assessment and plan #1 acute blood loss anemia secondary to upper GI bleed. Status post 3 units of transfusion hemoglobin every 6 hours hold aspirin for meloxicam #12 GI bleed likely upper peptic ulcer disease patient on meloxicam post surgery. Hold NSAIDs protonic 40 IV twice a day EGD and colonoscopy tomorrow. Clear liquid diet. Nothing by mouth after midnight #3 hypovolemic shock status post 2 L IV fluids continue fluids at 40 mL per ho ur. Status post one dose of Lasix posttransfusion's hold Lasix #4 chest pain with acute troponin elevation. Echocardiogram ordered and cardiology consult placed. Coreg initiated at 6.25 twice a day #5 right knee arthroplasty one week ago. Stable intact with no sign of infection #6 hyperkalemia acute kidney injury on chronic kidney disease hold lisinopril hold NSAIDs. Hyperkalemia corrected the beach CMP tomorrow #7 COPD DuoNeb as needed #8 type 2 diabetes hold metformin due to acute kidney injury. Hold NPH start patient on Levemir 10 units twice a day. Nothing by mouth after midnight #9 Ischemic cardiomyopathy not in acute exacerbation continue Coreg twice a day. Hold Lasix hold and do due to low blood pressure #10 coronary artery disease status post stenting last in 2002 continue Coreg at low dose #11 hyperlipidemia continue Lipitor 80 mg by mouth daily #12 history of supraventricular tachycardia on telemetry #13 GERD Protonix 40 twice a day #14 former smoker stable #15 Peripheral artery disease no claudication hold aspirin #16 hypertension Coreg initiated a low-dose #17 CODE STATUS full code #18 disposition patient need 1-2 inpatient nights for stabilization Past Medical History Past Medical History: Coronary Artery Disease (CAD), Chest Pain / Angina, Heart Failure, COPD, Diabetes Mellitus, GERD/Reflux, Hyperlipidemia, Hypertension, Myocardial Infarction ([place]), Pneumonia, Supraventricular Tachycardia (SVT), Vascular Disorder Additional Past Medical History / Comment(s): Ischemic cardiomyopathy, nonsustained ventriclar arrhythmia, systolic heart failure, [place] x 2 in 2001 and 1994, thrombocytopenia, cellulitis 2ndary to local trauma L patella, kidney stones which pt believes he passed, gout bilateral feet/ toes, occasional bilateral tinnitis, past 3-4 years intermittent bilateral leg pain but pt states he now takes quinine when this occurs and has relief of pain. 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 Past Anesthesia/Blood Transfusion Reactions: No Reported Reaction Additional Past Anesthesia/Blood Transfusion Reaction / Comment(s): never had a blood tranfusion Date of Last Stent Placement:: 02/05/19 Past Psychological History: No Psychological Hx Reported Additional Psychological History / Comment(s): Pt resides with his girlfriend in an apartment with elevators. He is independent. He is an [employer] served in [email or web address] Smoking Status: Former smoker Past Alcohol Use History: None Reported Additional Past Alcohol Use History / Comment(s): Pt started smoking in 1964 and quit in 2002. He smoked 2-3 ppd. Past Drug Use History: None Reported - Past Family History Father History Unknown: Yes Additional Family Medical History / Comment(s): Pt does not know his father's history. His parents were when he was 6 yrs old. Mother History Unknown: Yes Family Medical History: Cancer Additional Family Medical History / Comment(s): Pt states mother had some form of cancer which she from at the age of 77yrs. Medications and Allergies Home Medications Medication Instructions Recorded Confirmed Type Isosorbide Mononitrate [Imdur] 30 mg PO DAILY 06/07/14 07/17/21 History metFORMIN HCL [Glucophage] 1,000 mg PO BID 06/07/14 07/17/21 History Ferrous Sulfate [Iron (65 MG 325 mg PO DAILY 03/07/16 07/17/21 History Elemental)] Insulin NPH Hum/Reg Insulin Hm 20 unit SQ AC-BRKFST #0 07/29/17 07/17/21 Rx [NovoLIN 70-30 100 UNIT/ML VIAL] Furosemide [Lasix] 20 mg PO DAILY 07/11/19 07/17/21 History Magnesium Oxide [Mag-Ox] 250 mg PO DAILY 07/11/19 07/17/21 History Aspirin 81 mg PO DAILY chew 08/26/20 07/17/21 Rx Atorvastatin [Lipitor] 80 mg PO DAILY #30 tab 08/26/20 07/17/21 Rx carvediloL [Coreg*] 12.5 mg PO BID-W/MEALS tab 08/26/20 07/17/21 Rx lisinopriL [Zestril] 2.5 mg PO DAILY #30 tab 08/26/20 07/17/21 Rx Gabapentin [Neurontin] 100 mg PO BID 07/17/21 07/17/21 History Meloxicam [Mobic] 7.5 mg PO DAILY 07/17/21 07/17/21 History Nitroglycerin Sl Tabs [Nitrostat] 0.4 mg SUBLINGUAL Q5M PRN 07/17/21 07/17/21 History allopurinoL [Zyloprim] 100 mg PO DAILY 07/17/21 07/17/21 History Allergies Allergy/AdvReac Type Severity Reaction Status Date / Time No Known Allergies Allergy Verified 07/17/21 21:41 Physical Exam Vitals: Vital Signs Temp Pulse Pulse Resp BP Pulse Ox 07/18/21 14:00 69 15 104/49 98 07/18/21 13:00 70 18 96/82 98 07/18/21 12:20 98.4 F 70 16 98/55 100 07/18/21 12:00 98.4 F 70 15 105/52 100 07/18/21 11:00 71 17 115/47 99 07/18/21 10:30 98.5 F 77 16 76/46 99 07/18/21 10:00 97.9 F 74 12 114/45 91 L 07/18/21 09:50 97.7 F 72 16 114/45 98 07/18/21 09:00 73 11 L 105/48 99 07/18/21 08:00 97.7 F 68 12 95/43 99 07/18/21 07:20 69 7 L 99 07/18/21 07:10 66 12 126/56 99 07/18/21 07:00 70 11 L 109/51 99 07/18/21 06:50 71 12 109/51 98 07/18/21 06:40 67 12 111/54 99 07/18/21 06:30 69 12 116/54 98 07/18/21 06:20 67 11 L 116/54 98 07/18/21 06:10 66 12 114/54 99 07/18/21 06:00 74 12 114/62 98 07/18/21 05:50 75 12 114/62 98 07/18/21 05:40 78 11 L 119/69 98 07/18/21 05:30 79 10 L 105/59 98 07/18/21 05:20 73 18 105/59 97 07/18/21 05:10 72 11 L 101/46 98 07/18/21 05:00 71 11 L 100/51 97 07/18/21 04:50 70 12 100/51 97 07/18/21 04:40 69 12 116/54 97 07/18/21 04:35 97.7 F 74 18 105/59 07/18/21 04:30 78 12 125/56 98 07/18/21 04:20 78 11 L 125/56 92 L 07/18/21 04:10 77 11 L 109/57 88 L 07/18/21 04:00 97.8 F 71 72 18 121/57 96 07/18/21 03:50 73 12 121/57 98 07/18/21 03:40 77 12 125/68 98 07/18/21 03:33 97.8 F 76 15 125/68 07/18/21 03:30 79 12 110/52 07/18/21 03:20 74 17 110/52 98 07/18/21 03:10 78 13 111/47 99 07/18/21 03:03 97.8 F 77 12 127/57 07/18/21 03:00 78 11 L 123/51 07/18/21 02:53 97.9 F 76 12 123/51 07/18/21 02:50 75 13 123/51 99 07/18/21 02:40 73 14 87/43 95 08/25/21 02:30 71 13 99/52 90 L 07/18/21 02:22 97.5 F L 73 12 99/52 98 07/18/21 02:20 79 20 99/52 98 07/18/21 02:10 76 11 L 102/53 97 07/18/21 02:00 72 12 112/52 98 07/18/21 01:50 74 13 112/52 98 07/18/21 01:40 73 13 113/44 98 07/18/21 01:30 76 8 L 107/40 100 07/18/21 01:20 18 107/40 07/18/21 01:15 97.5 F L 11 L 107/40 07/18/21 00:54 98.4 F 77 20 76/31 98 07/18/21 00:48 88/42 07/18/21 00:24 98.1 F 77 22 71/35 99 07/18/21 00:14 98.3 F 76 20 76/31 100 07/17/21 23:44 98 07/17/21 22:35 87 20 87/40 100 07/17/21 20:16 81 20 97/54 99 07/17/21 20:11 97.7 F 80 20 86/42 100 Intake and Output 07/18/21 07/18/21 07/18/21 06:59 14:59 22:59 Intake Total 1021 590 Output Total 450 720 Balance 571 -130 Intake: IV 280 .9 40 280 Intake, IV Titration 70 Amount Sodium Chloride 0.9% 500 30 ml 500 ml @ 999 mls/hr IV .Q31M ONE Rx#:[id number] Sodium Chloride 0.9% 500 40 ml @ 999 mls/hr IV .Q31M STA Rx#:[id number] Blood Product 951 310 Rc As-1 Unit 310 [id number] Rc As-1 Unit 0 [id number] Rc As-1 Unit 310 [id number] Output: Urine 450 720 Other: Voiding Method External Catheter External Catheter Weight 114.305 kg Results CBC & Chem 7: 07/18/21 13:14 07/18/21 07:00 Labs: Abnormal Lab Results - Last 24 Hours (Table) 07/17/21 07/17/21 07/17/21 Range/Units 21:13 21:13 21:13 WBC 16.3 H (3.8-10.6) k/uL RBC 1.53 L (4.30-5.90) m/uL Hgb 5.3 L* (13.0-17.5) gm/dL Hct 16.6 L* (39.0-53.0) % MCV 108.5 H (80.0-100.0) fL MCHC (31.0-37.0) g/dL RDW 19.8 H (11.5-15.5) % Neutrophils # (1.3-7.7) k/uL Neutrophils # (Manual) 12.80 H (1.3-7.7) k/uL Monocytes # (Manual) 1.14 H (0-1.0) k/uL Metamyelocytes # (Man) 0.16 H (0) k/uL Nucleated RBCs 5 H (0-0) /100 WBC Macrocytosis Marked A APTT 19.4 L (22.0-30.0) sec D-Dimer 1.87 H (<0.60) mg/L FEU Sodium 134 L (137-145) mmol/L Potassium 6.4 H* (3.5-5.1) mmol/L Chloride (98-107) mmol/L Carbon Dioxide 20 L (22-30) mmol/L BUN 60 H (9-20) mg/dL Creatinine 1.34 H (0.66-1.25) mg/dL Glucose 126 H (74-99) mg/dL POC Glucose (mg/dL) (75-99) mg/dL Magnesium 2.7 H (1.6-2.3) mg/dL Total Bilirubin 1.8 H (0.2-1.3) mg/dL Total Protein 5.9 L (6.3-8.2) g/dL Albumin 3.1 L (3.5-5.0) g/dL Triglycerides (0.0-149.0) mg/dL VLDL Cholesterol, Calc (5.00-40.00) mg/dL HDL Cholesterol (40.0-60.0) mg/dL Ur Specific [place] (1.001-1.035) Urine Blood (Negative) Urine Bacteria (None) /hpf Urine Mucus (None) /hpf Crossmatch 08/07/17/21 07/17/21 Range/Units 22:09 22:25 22:36 WBC 12.1 H (3.8-10.6) k/uL RBC 1.35 L (4.30-5.90) m/uL Hgb 4.5 L* (13.0-17.5) gm/dL Hct 14.7 L* (39.0-53.0) % MCV 109.2 H (80.0-100.0) fL MCHC 30.8 L (31.0-37.0) g/dL RDW 19.7 H (11.5-15.5) % Neutrophils # (1.3-7.7) k/uL Neutrophils # (Manual) (1.3-7.7) k/uL Monocytes # (Manual) (0-1.0) k/uL Metamyelocytes # (Man) (0) k/uL Nucleated RBCs (0-0) /100 WBC Macrocytosis Marked A APTT (22.0-30.0) sec D-Dimer (<0.60) mg/L FEU Sodium (137-145) mmol/L Potassium (3.5-5.1) mmol/L Chloride (98-107) mmol/L Carbon Dioxide (22-30) mmol/L BUN (9-20) mg/dL Creatinine (0.66-1.25) mg/dL Glucose (74-99) mg/dL POC Glucose (mg/dL) 331 H (75-99) mg/dL Magnesium (1.6-2.3) mg/dL Total Bilirubin (0.2-1.3) mg/dL Total Protein (6.3-8.2) g/dL Albumin (3.5-5.0) g/dL Triglycerides (0.0-149.0) mg/dL VLDL Cholesterol, Calc (5.00-40.00) mg/dL HDL Cholesterol (40.0-60.0) mg/dL Ur Specific [place] (1.001-1.035) Urine Blood (Negative) Urine Bacteria (None) /hpf Urine Mucus (None) /hpf Crossmatch See Detail 07/18/21 07/18/21 07/18/21 Range/Units 01:15 05:50 07:00 WBC 11.2 H (3.8-10.6) k/uL RBC 1.94 L (4.30-5.90) m/uL Hgb 6.6 L* D (13.0-17.5) gm/dL Hct 20.2 L (39.0-53.0) % MCV 104.2 H D (80.0-100.0) fL MCHC (31.0-37.0) g/dL RDW 19.0 H (11.5-15.5) % Neutrophils # 8.8 H (1.3-7.7) k/uL Neutrophils # (Manual) (1.3-7.7) k/uL Monocytes # (Manual) (0-1.0) k/uL Metamyelocytes # (Man) (0) k/uL Nucleated RBCs (0-0) /100 WBC Macrocytosis APTT (22.0-30.0) sec D-Dimer (<0.60) mg/L FEU Sodium (137-145) mmol/L Potassium (3.5-5.1) mmol/L Chloride (98-107) mmol/L Carbon Dioxide (22-30) mmol/L BUN (9-20) mg/dL Creatinine (0.66-1.25) mg/dL Glucose (74-99) mg/dL POC Glucose (mg/dL) 145 H (75-99) mg/dL Magnesium (1.6-2.3) mg/dL Total Bilirubin (0.2-1.3) mg/dL Total Protein (6.3-8.2) g/dL Albumin (3.5-5.0) g/dL Triglycerides (0.0-149.0) mg/dL VLDL Cholesterol, Calc (5.00-40.00) mg/dL HDL Cholesterol (40.0-60.0) mg/dL Ur Specific [place] 1.038 H (1.001-1.035) Urine Blood Small H (Negative) Urine Bacteria Rare H (None) /hpf Urine Mucus Rare H (None) /hpf Crossmatch 07/18/21 07/18/21 07/18/21 Range/Units 07:00 07:15 07:28 WBC (3.8-10.6) k/uL RBC (4.30-5.90) m/uL Hgb (13.0-17.5) gm/dL Hct (39.0-53.0) % MCV (80.0-100.0) fL MCHC (31.0-37.0) g/dL RDW (11.5-15.5) % Neutrophils # (1.3-7.7) k/uL Neutrophils # (Manual) (1.3-7.7) k/uL Monocytes # (Manual) (0-1.0) k/uL Metamyelocytes # (Man) (0) k/uL Nucleated RBCs (0-0) /100 WBC Macrocytosis APTT (22.0-30.0) sec D-Dimer (<0.60) mg/L FEU Sodium 135 L (137-145) mmol/L Potassium 5.8 H (3.5-5.1) mmol/L Chloride 109 H (98-107) mmol/L Carbon Dioxide 21 L (22-30) mmol/L BUN 57 H (9-20) mg/dL Creatinine (0.66-1.25) mg/dL Glucose 122 H (74-99) mg/dL POC Glucose (mg/dL) 131 H (75-99) mg/dL Magnesium 2.8 H (1.6-2.3) mg/dL Total Bilirubin (0.2-1.3) mg/dL Total Protein (6.3-8.2) g/dL Albumin (3.5-5.0) g/dL Triglycerides 202.0 H (0.0-149.0) mg/dL VLDL Cholesterol, Calc 40.40 H (5.00-40.00) mg/dL HDL Cholesterol 13.0 L (40.0-60.0) mg/dL Ur Specific [place] (1.001-1.035) Urine Blood (Negative) Urine Bacteria (None) /hpf Urine Mucus (None) /hpf Crossmatch 07/18/21 Range/Units 13:14 WBC 13.2 H (3.8-10.6) k/uL RBC 2.42 L (4.30-5.90) m/uL Hgb 8.4 L D (13.0-17.5) gm/dL Hct 25.2 L (39.0-53.0) % MCV 104.1 H (80.0-100.0) fL MCHC (31.0-37.0) g/dL RDW 18.3 H (11.5-15.5) % Neutrophils # (1.3-7.7) k/uL Neutrophils # (Manual) (1.3-7.7) k/uL Monocytes # (Manual) (0-1.0) k/uL Metamyelocytes # (Man) (0) k/uL Nucleated RBCs (0-0) /100 WBC Macrocytosis APTT (22.0-30.0) sec D-Dimer (<0.60) mg/L FEU Sodium (137-145) mmol/L Potassium (3.5-5.1) mmol/L Chloride (98-107) mmol/L Carbon Dioxide (22-30) mmol/L BUN (9-20) mg/dL Creatinine (0.66-1.25) mg/dL Glucose (74-99) mg/dL POC Glucose (mg/dL) (75-99) mg/dL Magnesium (1.6-2.3) mg/dL Total Bilirubin (0.2-1.3) mg/dL Total Protein (6.3-8.2) g/dL Albumin (3.5-5.0) g/dL Triglycerides (0.0-149.0) mg/dL VLDL Cholesterol, Calc (5.00-40.00) mg/dL HDL Cholesterol (40.0-60.0) mg/dL Ur Specific [place] (1.001-1.035) Urine Blood (Negative) Urine Bacteria (None) /hpf Urine Mucus (None) /hpf Crossmatch
[2021-07-18] MEDS ORDERED: PEG 3350-NA SULF,BICARB,CL/KCL 4,000 ML BOTTLE PO ONE (16:00)
[2021-07-18] MEDS: MORPHINE SULFATE 2 MG/ML SYRINGE IVP PRN ×2 (16:02→20:44)
[2021-07-18] MEDS: carvediloL 6.25 MG TAB PO SCH (17:06)
[2021-07-18] MEDS: ACETAMINOPHEN TAB 325 MG TAB PO PRN (18:18)
[2021-07-18 18:26] LABS: Anisocytosis Slight; HCT 25.8 % (39.0-53.0); HGB 8.5 gm/dL (13.0-17.5); Hypochromasia Moderate; MCH 34.3 pg (25.0-35.0); MCHC 33.1 g/dL (31.0-37.0); MCV 103.6 fL (80.0-100.0); Macrocytosis Moderate; Mean Platelet Volume 7.7; Platelet Count 206 k/uL (150-450); Poikilocytosis Moderate; RBC 2.49 m/uL (4.30-5.90)
[2021-07-18] MEDS: PANTOPRAZOLE 40 MG TABLET PO SCH (20:54)
[2021-07-18] MEDS: INSULIN DETEMIR (LEVEMIR) 100 UNIT/ML SYR SQ SCH (20:54)
[2021-07-19 00:42] LABS: Anisocytosis Slight; HCT 25.8 % (39.0-53.0); HGB 8.6 gm/dL (13.0-17.5); Hypochromasia Moderate; MCH 34.6 pg (25.0-35.0); MCHC 33.2 g/dL (31.0-37.0); MCV 104.3 fL (80.0-100.0); Macrocytosis Moderate; Mean Platelet Volume 7.6; Platelet Count 189 k/uL (150-450); Poikilocytosis Moderate; RBC 2.47 m/uL (4.30-5.90); RDW 19.2 % (11.5-15.5); WBC 11.5 k/uL (3.8-10.6)
[2021-07-19] MEDS: ACETAMINOPHEN TAB 325 MG TAB PO PRN (00:50)
[2021-07-19] MEDS: NITROGLYCERIN OINT 1 INCH/GM PACKET TOPICAL SCH ×4 (00:51→14:43)
[2021-07-19] MEDS: MORPHINE SULFATE 2 MG/ML SYRINGE IVP PRN ×4 (00:52→21:10)
[2021-07-19 04:53] LABS: Calcium 8.6 mg/dL (8.4-10.2); Potassium 5.2 mmol/L (3.5-5.1)
[2021-07-19 05:35] LABS: Anisocytosis Slight; HCT 25.8 % (39.0-53.0); HGB 8.6 gm/dL (13.0-17.5); Hypochromasia Slight; MCH 34.3 pg (25.0-35.0); MCHC 33.2 g/dL (31.0-37.0); MCV 103.3 fL (80.0-100.0); Macrocytosis Moderate; Mean Platelet Volume 7.2; Platelet Count 208 k/uL (150-450); Poikilocytosis Moderate; RBC 2.49 m/uL (4.30-5.90); RDW 19.7 % (11.5-15.5)
[2021-07-19] MEDS: INSULIN DETEMIR (LEVEMIR) 100 UNIT/ML SYR SQ SCH ×2 (07:02→21:05)
[2021-07-19 08:09] LABS: Band Neutrophils % 2 %; Neutrophils % (M) 83 %; Nucleated Red Blood Cells 2 /100 WBC (0-0); Total Cells Counted 200
[2021-07-19 08:14] LABS: Eosinophils # (M) 0.21 k/uL (0-0.7); Lymphocytes # (M) 1.17 k/uL (1.0-4.8); Monocytes # (M) 0.42 k/uL (0-1.0); WBC 10.6 k/uL (3.8-10.6)
[2021-07-19] MEDS: carvediloL 6.25 MG TAB PO SCH ×2 (08:35→17:05)
[2021-07-19] MEDS: MAGNESIUM OXIDE 400 MG TAB PO SCH (08:35)
[2021-07-19] MEDS: allopurinoL 100 MG TAB PO SCH (08:35)
[2021-07-19] MEDS: ATORVASTATIN 80 MG TAB PO SCH (08:35)
[2021-07-19] MEDS: FERROUS SULFATE 325 MG TAB PO SCH (08:35)
[2021-07-19] MEDS: PANTOPRAZOLE 40 MG TABLET PO SCH ×2 (08:35→21:05)
[2021-07-19] MEDS: GABAPENTIN 100 MG CAP PO SCH ×2 (08:37→21:05)
[2021-07-19] MEDS ORDERED: MAGNESIUM CITRATE 296 ML BOTTLE PO STA (08:56)
[2021-07-19] MEDS ORDERED: NA PHOS,M-B/NA PHOS,DI-BA 133 ML ENEMA RECTAL STA (11:47)
--- NOTE | 2021-07-19 12:00 | P.PN ---
Subjective Progress Note Date: 07/19/21 75-year-old male patient who presented to the burst department yesterday because of chest pain. He is known to have coronary artery disease and has undergone multiple coronary stenting. The patient has had previous MD 2 back in 1994 and 2001. He also has history of ischemic cardiomyopathy with an ejection fraction of 35-40% along with nonsustained ventricular tachycardia. His last cardiac catheterization was in August 2020 and it showed nonocclusive disease. No further intervention was done. He follows up with Dr. Hernadez. Other comorbidities include COPD, diabetes mellitus, hypertension, hyperlipidemia and peripheral vascular disease. I do see this patient to regularly in my office regarding his COPD. He is known to have a chronic stable COPD and he is in a ex-smoker. His FEV1 is in the order of 66% of predicted. He also has a pulmonary nodule identified on a CAT scan of the chest from 10/26/2018 and that was a 5 mm left lower lobe pulmonary nodule that was very small to characterize. In the emergency, the patient was afebrile. The patient initial blood pressure was 86/42. He had also a lower blood pressure 76/31. EKG showed a normal sinus rhythm. No acute ischemic changes. There was a RBB pattern. The hemoglobin came back at 4.5. Troponins were negative. Immediately the patient was given a total of 2 units of packed RBC. Subsequent hemoglobin from this morning is up to 6.6. Patient also receives fluids. Currently is on IV fluids running at the rate of 40 mL an hour of normal saline. D-dimer came back at 1.87. The patient underwent further testing with a CT angiogram that showed subsegmental atelectasis in the lung bases are noted as of any pulmonary embolism. He also had cardiomegaly. No evidence of any suspicious pulmonary nodules. The patient was having some nausea. He was given Zofran. He was suspected to have some GI bleed. His stool Hemoccult came back positive. He also had a potassium level of 6.40 [facility] department and he was given a combination of Kayexalate and IV bicarb and D50 insulin and the subsequent potassium level came down to 5.8. Clinically, the patient denies having any melanotic stools. No history of any hematemesis. No recent EGD or colonoscopy. Coagulation profile was essentially within normal limits. In terms of education, the patient is not taking any form of anticoagulation. He is on ASA and he is on no other antiplatelet agents. No liver cirrhosis. No 70 peptic ulcer disease. He takes iron supplements 325 mg on a daily basis. The patient underwent a recent right knee replacement this was done by Dr. Gorge Abarca at [facility] at around 2 weeks ago. The surgical wound site is dry clean and intact. No thigh swelling. 07/19/2021, the patient is hemodynamically stable in the intensive care unit. The patient received a total of 3 units of packed RBC. No signs of any acute GI bleed. He currently is nothing by mouth and is awaiting his EGD and colonoscopy. He is free of any chest pain. He remains hemodynamically stable. That hemoglobin from today is at 8.6. Platelet count is at 208. BNP is at 38 with a creatinine of 1.06. Potassium level is at 5.2. Objective - Vital Signs Vital signs: Vital Signs Temp 98.7 F 07/19/21 08:00 Pulse 71 07/19/21 11:00 Resp 15 07/19/21 11:00 BP 130/64 07/19/21 11:00 Pulse Ox 98 07/19/21 11:00 Intake & Output 07/18/21 07/19/21 07/19/21 18:59 06:59 18:59 Intake Total 790 1920 0 Output Total 1320 850 850 Balance -530 1070 -850 Weight 117.7 kg Intake: IV 480 840 0 .9 40 480 840 0 Oral 1080 Blood Product 310 Rc As-1 Unit 310 [id number] Output: Urine 1320 850 850 Other: Voiding Method External Catheter Bedpan External Catheter External Catheter # Voids 1 # Bowel Movements 1 2 - Exam GENERAL: The patient is well nourished and he is obese and his breathing is nonlabored and he is breathing comfortably for now. VITAL SIGNS: Heart rate, blood pressure, respiratory rate reviewed as recorded in nurse's notes. EYES: Pupils are round and reactive. Extraocular movements are intact. No conjunctival / lid redness or swelling. ENT: No external evidence of injury, swelling, or ecchymosis. Airway is patent. Throat is clear. NECK: Nontender. No swelling or evidence of injury. No subcutaneous emphysema. Trachea is midline. No thyroid mass. HEART: Regular rate and rhythm. Good peripheral pulses. LUNGS/CHEST: Breath sounds clear and equal bilaterally. No rales, rhonchi, or wheezes. No ecchymosis, subcutaneous emphysema, or tenderness. ABDOMEN: Abdomen soft without tenderness. No palpable masses or organomegaly. No peritoneal signs. No abdominal wall swelling or ecchymosis. Rectal exam: There is no hemorrhage identified. There is dark stool noted on digital rectal examination and Hemoccult is sent. EXTREMITIES: Swelling noted to the right lower extremity primarily in the knee and distal to this with postop changes noted. No evidence of erythema or drainage. No thoracolumbar tenderness. The tuan are still in place in the right knee. No evidence of any hematoma. No swelling. NEUROLOGIC: Sensation is grossly intact. Cranial nerve exam reveals face is symmetrical, tongue is midline, speech is clear. SKIN: No abrasions or ecchymosis is noted. No induration or masses noted. Ap pears fairly pale PSYCHIATRIC: Alert and oriented. Appropriate behavior and judgment. - Labs CBC & Chem 7: 07/19/21 04:08 07/19/21 04:08 Labs: Abnormal Lab Results - Last 24 Hours (Table) 07/17/21 07/18/21 07/18/21 Range/Units 22:09 07:15 13:14 WBC 13.2 H (3.8-10.6) k/uL RBC 2.42 L (4.30-5.90) m/uL Hgb 8.4 L D (13.0-17.5) gm/dL Hct 25.2 L (39.0-53.0) % MCV 104.1 H (80.0-100.0) fL RDW 18.3 H (11.5-15.5) % Neutrophils # (Manual) (1.3-7.7) k/uL Nucleated RBCs (0-0) /100 WBC Sodium (137-145) mmol/L Potassium (3.5-5.1) mmol/L BUN (9-20) mg/dL Glucose (74-99) mg/dL Triglycerides 202.0 H (0.0-149.0) mg/dL VLDL Cholesterol, Calc 40.40 H (5.00-40.00) mg/dL HDL Cholesterol 13.0 L (40.0-60.0) mg/dL Crossmatch See Detail 07/18/21 07/19/21 07/19/21 Range/Units 18:15 00:01 04:08 WBC 13.0 H 11.5 H (3.8-10.6) k/uL RBC 2.49 L 2.47 L 2.49 L (4.30-5.90) m/uL Hgb 8.5 L 8.6 L 8.6 L (13.0-17.5) gm/dL Hct 25.8 L 25.8 L 25.8 L (39.0-53.0) % MCV 103.6 H 104.3 H 103.3 H (80.0-100.0) fL RDW 19.0 H 19.2 H 19.7 H (11.5-15.5) % Neutrophils # (Manual) 9.00 H (1.3-7.7) k/uL Nucleated RBCs 2 H (0-0) /100 WBC Sodium (137-145) mmol/L Potassium (3.5-5.1) mmol/L BUN (9-20) mg/dL Glucose (74-99) mg/dL Triglycerides (0.0-149.0) mg/dL VLDL Cholesterol, Calc (5.00-40.00) mg/dL HDL Cholesterol (40.0-60.0) mg/dL Crossmatch 07/19/21 Range/Units 04:08 WBC (3.8-10.6) k/uL RBC (4.30-5.90) m/uL Hgb (13.0-17.5) gm/dL Hct (39.0-53.0) % MCV (80.0-100.0) fL RDW (11.5-15.5) % Neutrophils # (Manual) (1.3-7.7) k/uL Nucleated RBCs (0-0) /100 WBC Sodium 136 L (137-145) mmol/L Potassium 5.2 H (3.5-5.1) mmol/L BUN 38 H (9-20) mg/dL Glucose 109 H (74-99) mg/dL Triglycerides (0.0-149.0) mg/dL VLDL Cholesterol, Calc (5.00-40.00) mg/dL HDL Cholesterol (40.0-60.0) mg/dL Crossmatch Assessment and Plan Plan: 1 chest pain due to severe anemia, unlikely to be related to an acute coronary event. The patient is known to have underlying CAD and mismatch created by the severe anemia probably dose his ongoing chest pain. Currently is chest tube with a total of 3 units of packed RBC and the patient is currently free of any chest pain. EKGs negative. Cardiac enzymes are negative. The patient remains free of any chest pain and the patient is awaiting colonoscopy as part of workup for hemoglobin dropped 2 severe anemia with a hemoglobin of 4.5 at the time of admission, transfused with a total of 3 units of packed RBC. Consider upper GI bleed. Currently on aspirin. Correlation profile is within normal limits. . Awaiting EGD and colonoscopy. No other antiplatelet agents given to this patient. No anticoagulants utilize 3 coronary artery disease with multivessel involvement. Last cardiac catheterization from August 2020 showed nonocclusive disease. He has undergone multiple PCI's and stenting 4 COPD, with an FEV1 of 66% of predicted, currently inactive in stable 5 ischemic artery myopathy with an ejection fraction of 35-40% 6 previous history of nonsustained V. tach 7 recent right knee replacement, completed approximately 2 weeks ago without any complications and the surgical wound site is dry clean and intact 8 diabetes mellitus 9 hyperlipidemia 10 hypertension. Note that the patient was quite hypotensive the time of admission and his blood pressure improved with fluid resuscitation and blood products. 11 peripheral vascular disease 12 gout. 13 acute kidney injury likely secondary to above, recovered 14 acute hyperkalemia, treated and the potassium level is down to 5.2 Plan Continue IV fluids at 40 mL an hour The patient additional packed and it RBC making a total of 3 units GI consultation for EGD and colonoscopy today Keep aspirin on hold Surgical wound site over the right areas dry clean and intact IV Protonix Cardiology consultation for the chest pain, currently free of any chest pain Resume all medications We'll transfer this patient out of the intensive care unit following his EGD and colonoscopy.
--- NOTE | 2021-07-19 13:09 | P.PN ---
Subjective This is a 74-year old male with a past medical history significant for coronary artery disease s/p multiple PCI to RCA, diabetes mellitus, hypertension, hyperlipidemia, COPD, ischemic cardiomyopathy, systolic heart failure. Patient follows in the office with Dr. Morrow. We have been asked to see the patient in consultation for chest pain. Patient presents to the hospital 07/17 with complaints of chest pain. He presented to the hospital from the [facility]. He had a total right knee surgery approximately 2 weeks ago at [facility]. Patient states that his chest pain started 2 days ago. It was located center and left of his chest. It is non-radiating, non exertional. He did have associated shortness of breath. He denies nausea, diaphoresis, lightheadedness or dizziness. He denies any specific alleviating or aggravating factors. He does endorse feeling tired and fatigued lately. He denies any blood in his stool or urine when at Rehab. He is former smoker quit in 2002. On admission, patient's initial blood pressure 86/42. EKG with no acute ischemic changes. Patient was given 2 units of PRBCs. Started on IV fluids and IV protonix. He was given Kayexalate, IV bicarb and D50 insulin for a potassium of 6.4 with improvement to 5.8. Patient did receive 325mg of aspirin in the ER. CT chest- negative for PE. Some some segmental atelectasis at the lung bases. Cardiomegaly increased significantly compared to exam. Laboratory data: Hemoglobin 4.5, WBC 12.1, platelets 219, sodium 135, potassium 5.8, BUN 57, serum creatinine 1.23, magnesium 2.8, troponin negative 3 stool occult blood- positive DIAGNOSTICS: Most recent cardiac catheterization 08/2020- Patent stent in proximal RCA, Mild to moderate in-stent restenosis nonobstructive disease involving the distal RCA, mild disease involving the left coronary system Echocardiogram 08/2020, EF 35-40%, inferior hypokinesis, LA is mildly dilated, mild to moderate mitral regurgitation, mild tricuspid regurgitation. 07/19/21 Patient seems bedside, no acute distress. He is alert and oriented 3. He denies any further chest pain. He denies shortness of breath. No complaints this morning. Patient received a total of 3 units of PRBCs. Laboratory data review WBC 10.6, hemoglobin 8.6, sodium 136, potassium 5.2, BUN 38, serum creatinine 1.06. Echocardiogram revealed an EF of 40-45%, basal inferior, basal inferior septal, mid inferior, mid inferior septal, basal inferior lateral wall hypokinetic. Patient currently maintained on atorvastatin 80 mg daily, carvedilol 6.25 mg twice a day. Patient is maintaining sinus mechanism. Plan for patient to undergo EGD and colonoscopy with GI. PHYSICAL EXAM: VITAL SIGNS: Reviewed. GENERAL: Well-developed in no acute distress. HEENT: Neck supple. No JVD LUNGS: Respirations even and unlabored. Lungs diminished. HEART: Regular rate and rhythm. S1 and S2 heard. Systolic murmur noted at apex ABDOMEN: Soft. Nondistended. Nontender. EXTREMITIES: Normal range of motion. No clubbing or cyanosis. Peripheral pulses intact. 2+ right lower extremity edema, 1+ left lower extremity edema SKIN: Right knee incision closed with tuan NEUROLOGIC: Alert. Oriented x 3. ASSESSMENT: Chest pain, most likely due to supply demand mismatch due to acute anemia, troponin negative x 3. EKG with no significant ischemic changes, patient is curr ently does not have any further chest pain Severe Anemia Hyperkalemia Acute Kidney Injury, improving History of coronary artery disease s/p PCI RCA Diabetes mellitus, type II Hypertriglyceridemia Hyperlipidemia Hypertension Ischemic cardiomyopathy, EF 35-40% Chronic systolic congestive heart failure COPD Obesity: BMI 39.5 History of recent right knee surgery PLAN: -No further cardiac workup indicated at this time -Plan for EGD Colonoscopy today with GI -Aspirin and ACEI on hold -Continue statin -Further recommendations based on clinical course Nurse practitioner note has been reviewed by physician. Signing provider agrees with the documented findings, assessment, and plan of care. Objective - Vital Signs Vital signs: Vital Signs Temp 97.8 F 07/19/21 04:00 Pulse 72 07/19/21 07:00 Resp 12 07/19/21 07:00 BP 104/56 07/19/21 07:00 Pulse Ox 97 07/19/21 07:00 Intake & Output 07/18/21 07/19/21 07/19/21 18:59 06:59 18:59 Intake Total 790 1920 0 Output Total 1320 850 Balance -530 1070 0 Weight 117.7 kg Intake: IV 480 840 0 .9 40 480 840 0 Oral 1080 Blood Product 310 Rc As-1 Unit 310 [id number] Output: Urine 1320 850 Other: Voiding Method External Catheter Bedpan External Catheter # Voids 1 # Bowel Movements 1 4 - Labs CBC & Chem 7: 07/19/21 04:08 07/19/21 04:08 Labs: Abnormal Lab Results - Last 24 Hours (Table) 07/17/21 07/18/21 07/18/21 Range/Units 22:09 07:00 07:15 WBC 11.2 H (3.8-10.6) k/uL RBC 1.94 L (4.30-5.90) m/uL Hgb 6.6 L* D (13.0-17.5) gm/dL Hct 20.2 L (39.0-53.0) % MCV 104.2 H D (80.0-100.0) fL RDW 19.0 H (11.5-15.5) % Neutrophils # 8.8 H (1.3-7.7) k/uL Sodium (137-145) mmol/L Potassium (3.5-5.1) mmol/L BUN (9-20) mg/dL Glucose (74-99) mg/dL Triglycerides 202.0 H (0.0-149.0) mg/dL VLDL Cholesterol, Calc 40.40 H (5.00-40.00) mg/dL HDL Cholesterol 13.0 L (40.0-60.0) mg/dL Crossmatch See Detail 07/18/21 07/18/21 07/19/21 Range/Units 13:14 18:15 00:01 WBC 13.2 H 13.0 H 11.5 H (3.8-10.6) k/uL RBC 2.42 L 2.49 L 2.47 L (4.30-5.90) m/uL Hgb 8.4 L D 8.5 L 8.6 L (13.0-17.5) gm/dL Hct 25.2 L 25.8 L 25.8 L (39.0-53.0) % MCV 104.1 H 103.6 H 104.3 H (80.0-100.0) fL RDW 18.3 H 19.0 H 19.2 H (11.5-15.5) % Neutrophils # (1.3-7.7) k/uL Sodium (137-145) mmol/L Potassium (3.5-5.1) mmol/L BUN (9-20) mg/dL Glucose (74-99) mg/dL Triglycerides (0.0-149.0) mg/dL VLDL Cholesterol, Calc (5.00-40.00) mg/dL HDL Cholesterol (40.0-60.0) mg/dL Crossmatch 07/19/21 07/19/21 Range/Units 04:08 04:08 WBC 10.8 H (3.8-10.6) k/uL RBC 2.49 L (4.30-5.90) m/uL Hgb 8.6 L (13.0-17.5) gm/dL Hct 25.8 L (39.0-53.0) % MCV 103.3 H (80.0-100.0) fL RDW 19.7 H (11.5-15.5) % Neutrophils # (1.3-7.7) k/uL Sodium 136 L (137-145) mmol/L Potassium 5.2 H (3.5-5.1) mmol/L BUN 38 H (9-20) mg/dL Glucose 109 H (74-99) mg/dL Triglycerides (0.0-149.0) mg/dL VLDL Cholesterol, Calc (5.00-40.00) mg/dL HDL Cholesterol (40.0-60.0) mg/dL Crossmatch
[2021-07-19] MEDS ORDERED: PROPOFOL 10 MG/ML 20 ML VIAL IV ONE (13:43)
[2021-07-19] MEDS ORDERED: LIDOCAINE 1% INJ 10MG/ML (20 ML MDV) ONE (13:43)
[2021-07-19] MEDS ORDERED: SODIUM CHLORIDE 0.9% 500 ML 500 ML IV ONE (13:49)
--- NOTE | 2021-07-19 14:00 | P.PN ---
Subjective Progress Note Date: 07/19/21 75 years old male with past medical history of coronary artery disease status post stenting in 2001, history of nonsustained V. tach, ischemic cardiomyopathy EF 35-40%, COPD, type 2 diabetes, GERD, hypertension, hyperlipidemia, gout, tinnitus with recent cardiac cath in August 2020 suggestive of moderate nonobstructive disease involving distal right RCA had mild disease involving the left coronary system. Medical management was recommended. Patient is a former smoker quit smoking 20 years ago smoked for 35 years and quit 20 years ago. Patient had a total knee arthroplasty one week ago at [facility] and was discharged on meloxicam. Patient started complaining of chest pain 3 days ago associated with nausea and vomiting. Nitro was given at the [facility] with the improvement in symptoms. Patient had multiple episodes of vomiting for the past 2 days which will coffee ground in color. Chest pain was central in location nonradiating and nonexertional. He does complain of shortness of breath associated with chest pain.. Patient felt weak and tired and was sent to the hospital for evaluation On evaluation in the ER patient had a blood pressure on admission was 86/42 pulse 80 respiratory rate 20 afebrile. On assessment of patient's lab, patient hemoglobin of 5.3 on admission repeat check suggested 4.5. Patient underwent 3 units of transition since last night with lead to improvement of hemoglobin to 8.4. Patient denies any black stools but fecal occult in the ER was positive. WBC 12.1 MCV 109.2 platelets 219 d-dimer 1.87 potassium 6.4 sodium 134 20 BUN 60 creatinine 1.34 glucose 331 magnesium 2.7 total bilirubin 1.8 troponin down to negative LDL 73 and VLDL 40 was negative.. Dehydrated UA. Patient seen the pulmonary, GI and cardiology. IV fluids were contributory physical per hour. Initiated on Protonix 40 IV twice a day. Aspirin and meloxicam and Tommy inhibitors held. Would recommend initiating Coreg at 6.25 twice a day. Echocardiogram ordered. EGD and colonoscopy tomorrow. clear Liquid diet recommended 07/19 patient examined at bedside denies any chest pain shortness of breath. He did receive prep for colonoscopy yesterday but continues to have bowel movements. Labs reviewed patient's hemoglobin stabilized at 8.6 and WBC 10.6, sodium is 136 potassium slightly high at 5.2 BUN 38 creatinine 1.06 vitals are stable afebrile pulse 76 respiratory rate 16 blood pressure 118/68 sitting and saturation 97% on room air. Patient plans for EGD and colonoscopy today. Continue to remain nothing by mouth ROS Constitutional: Denies chills, Denies fever, endorses lethargy and weakness Denies weight loss Eyes: denies decreased vision, denies diplopia, denies discharge, denies pain Ears: deny: decreased hearing Ears, nose, mouth and throat: Denies dental pain, Denies headache, Denies nasal discharge, Denies nose pain Cardiovascular: Endorses chest pain, endorses decreased exercise tolerance, Denies edema, Denies high blood pressure, Denies irregular heart beat, Denies palpitations, Denies paroxysmal nocturnal dyspnea, Denies rapid heart beat, endorses shortness of breath Respiratory: Denies congestion, Denies cough, Denies cough with sputum, Denies dyspnea, Denies home oxygen, Denies wheezing Gastrointestinal: Endorses abdominal pain, Denies change in bowel habits, endorses coffee ground emesis, Denies early satiety, Denies excessive gas, Denies heartburn, endorses hematemesis, Denies hematochezia, Denies loss of appetite, endorses nausea, endorses vomiting Genitourinary: Denies dysuria, Denies flank pain, Denies kidney stones, Denies menorrhagia, Denies urgency, Denies urinary frequency Musculoskeletal: Denies gait dysfunction, Denies limitation of motion, Denies morning stiffness, Denies muscle cramps Integumentary: Denies rash, Denies wounds, Denies brittle nails, Denies change in hair/nails, Denies darkening of skin Neurological: Denies balance difficulties, Denies change in speech, Denies double vision, Denies gait dysfunction, Denies loss of vision, Denies motor disturbance, Denies numbness, Denies paralysis, Denies paresthesias, Denies seizures Psychiatric: Denies anxiety, Denies depression Endocrine: Denies excessive sweating, Denies excessive thirst, Denies high blood sugars, Denies palpitations Hematologic/Lymphatic: Denies easy bruising, Denies lymphadenopathy Physical exam - Constitutional General appearance: cooperative, no acute distress, obese weighing 2 L of oxygen - EENT Eyes: anicteric sclerae, PERRLA, normal appearance ENT: hearing grossly normal - Neck Neck: no lymphadenopathy, normal ROM, no other, no rigidity, no stridor, no thyromegaly - Respiratory Respiratory: bilateral: CTA, negative: diminished, dullness, rales, rhonchi - Cardiovascular Rhythm: regular Heart sounds: normal: S1, S2 Abnormal Heart Sounds: 2/ 6 systolic murmur, no diastolic murmur, no rub, no S3 Gallop, no S4 Gallop, no click, bilateral lower extremity swelling worse on the left - Gastrointestinal General gastrointestinal: normal bowel sounds, soft nontender epigastric region - Integumentary Integumentary: no rash - Neurologic Neurologic: No motor or sensory deficit - Musculoskeletal Musculoskeletal: gait not assessed strength equal bilaterally right knee with tuan with surrounding inflammation no redness or drainage noted - Psychiatric Psychiatric: A&O x's 3, appropriate affect Assessment and plan #1 acute blood loss anemia secondary to upper GI bleed. Status post 3 units of transfusion hemoglobin every 6 hours hold aspirin for meloxicam #12 GI bleed likely upper peptic ulcer disease patient on meloxicam post surgery. Hold NSAIDs protonic 40 IV twice a day EGD and colonoscopy today continue to remain nothing by mouth #3 hypovolemic shock status post 2 L IV fluids continue fluids at 40 mL per hour. Status post one dose of Lasix posttransfusion's hold Lasix #4 chest pain with acute troponin elevation. Echocardiogram ordered and cardiology consult placed. Coreg initiated at 6.25 twice a day continue to monitor hold if systolic less than 90 #5 right knee arthroplasty 2 week ago. Stable intact with no sign of infection. Follows Dr. Abarca and would need tuan out as outpatient #6 hyperkalemia acute kidney injury on chronic kidney disease hold lisinopril hold NSAIDs. Patient has multiple bouts of bowel movement. Repeat CMP tomorrow #7 COPD DuoNeb as needed #8 type 2 diabetes hold metformin due to acute kidney injury. Hold NPH start patient on Levemir 10 units twice a day. Nothing by mouth #9 Ischemic cardiomyopathy not in acute exacerbation continue Coreg twice a day. Hold Lasix hold and do due to low blood pressure #10 coronary artery disease status post stenting last in 2002 continue Coreg at low dose #11 hyperlipidemia continue Lipitor 80 mg by mouth daily #12 history of supraventricular tachycardia on telemetry #13 GERD Protonix 40 twice a day #14 former smoker stable #15 Peripheral artery disease no claudication hold aspirin #16 hypertension Coreg initiated a low-dose #17 CODE STATUS full code #18 disposition discharge to [facility] when stable Objective - Vital Signs Vital signs: Vital Signs Temp 97.6 F 07/19/21 12:00 Pulse 70 07/19/21 13:00 Resp 12 07/19/21 13:00 BP 138/66 07/19/21 13:00 Pulse Ox 96 07/19/21 13:00 Intake & Output 07/18/21 07/19/21 07/19/21 18:59 06:59 18:59 Intake Total 790 1920 0 Output Total 1320 850 850 Balance -530 1070 -850 Weight 117.7 kg Intake: IV 480 840 0 .9 40 480 840 0 Oral 1080 Blood Product 310 Rc As-1 Unit 310 [id number] Output: Urine 1320 850 850 Other: Voiding Method External Catheter Bedpan External Catheter External Catheter # Voids 1 # Bowel Movements 1 2 - Labs CBC & Chem 7: 07/19/21 04:08 07/19/21 04:08 Labs: Abnormal Lab Results - Last 24 Hours (Table) 07/18/21 07/18/21 07/19/21 Range/Units 13:14 18:15 00:01 WBC 13.2 H 13.0 H 11.5 H (3.8-10.6) k/uL RBC 2.42 L 2.49 L 2.47 L (4.30-5.90) m/uL Hgb 8.4 L D 8.5 L 8.6 L (13.0-17.5) gm/dL Hct 25.2 L 25.8 L 25.8 L (39.0-53.0) % MCV 104.1 H 103.6 H 104.3 H (80.0-100.0) fL RDW 18.3 H 19.0 H 19.2 H (11.5-15.5) % Neutrophils # (Manual) (1.3-7.7) k/uL Nucleated RBCs (0-0) /100 WBC Sodium (137-145) mmol/L Potassium (3.5-5.1) mmol/L BUN (9-20) mg/dL Glucose (74-99) mg/dL 07/19/21 07/19/21 Range/Units 04:08 04:08 WBC (3.8-10.6) k/uL RBC 2.49 L (4.30-5.90) m/uL Hgb 8.6 L (13.0-17.5) gm/dL Hct 25.8 L (39.0-53.0) % MCV 103.3 H (80.0-100.0) fL RDW 19.7 H (11.5-15.5) % Neutrophils # (Manual) 9.00 H (1.3-7.7) k/uL Nucleated RBCs 2 H (0-0) /100 WBC Sodium 136 L (137-145) mmol/L Potassium 5.2 H (3.5-5.1) mmol/L BUN 38 H (9-20) mg/dL Glucose 109 H (74-99) mg/dL
--- NOTE | 2021-07-19 14:09 | P.PCN ---
Date of Procedure: 07/19/21 Procedure(s) Performed: Brief history: Patient is a pleasant 75-year-old white male admitted hospital with severe symptomatic anemia and hemoglobin of 4.8 g/dL. He received 3 years of PRBC transfusion. Having some darker stools. He is scheduled for an upper endoscopy as well as colonoscopy to evaluate further. Procedure performed: Esophagogastroduodenoscopy biopsy Colonoscopy Preoperative diagnosis: Anemia and GI bleed Anesthesia: [facility] Procedure: After informed consent was obtained from the patient was brought into the endoscopy unit and IV sedation was administered by anesthesia under continuous monitoring. Initially upper endoscopy was done. The Olympus GF 160 video endoscope was inserted inserted into the mouth and esophagus intubated without any difficulty and was gradually advanced into the stomach and duodenum and carefully examined. The bulb and second part of the duodenum appeared normal. The scope was then withdrawn into the stomach adequately insufflated with air and upon careful examination the antrum and body, cardia and fundus appeared normal. The scope was then withdrawn into the esophagus. The GE junction was located at 40 cm to the incisors. It appeared regular with no erythema erosions or ulcerations. Rest of the esophagus appeared normal. Patient tolerated the procedure well. At this time the patient continued to remain sedation. Initial digital rectal examination was normal. Olympus CF 160 video colonoscope was then inserted into the rectum and gradually advanced to the cecum without any difficulty. Careful examination was performed as the scope was gradually being withdrawn. The prep was excellent. The cecum, ascending colon, transverse colon, descending colon, sigmoid colon and rectum appeared normal. The sigmoid diverticulosis seen. Retroflexion was performed in the rectum and no lesions were noted. Patient tolerated the procedure well. Impression: 1. Upper endoscopy revealed multiple clean-based gastric ulcers in the body and antrum measuring between 5 mm to 1.5 cm in size, at least 20 ulcers noted with no active bleeding 2. Colonoscopy revealed moderate sigmoid diverticulosis but no evidence of colorectal neoplasia Recommendations: Findings of this examination were discussed with the patient as well as his family. He was advised to follow with the biopsy results. He'll be continued on Protonix 40 mg twice daily. Avoid NSAIDs. Diet will be advanced as tolerated.
[2021-07-19 15:18] LABS: ALT 32 U/L (4-49); AST 58 U/L (17-59); African American GFR (CKD) >90 (>60 ml/min/1.73 sqM); Albumin 3.3 g/dL (3.5-5.0); Alkaline Phosphatase 109 U/L (38-126); Anion Gap 4 mmol/L; Blood Urea Nitrogen 27 mg/dL (9-20); Calcium 8.5 mg/dL (8.4-10.2); Carbon Dioxide 24 mmol/L (22-30); Chloride 107 mmol/L (98-107); Glucose 114 mg/dL (74-99); Non-African American GFR(CKD) 83 (>60 ml/min/1.73 sqM); Sodium 135 mmol/L (137-145); Total Bilirubin 2.3 mg/dL (0.2-1.3); Total Protein 6.2 g/dL (6.3-8.2)
[2021-07-19 15:30] LABS: Potassium 6.1 mmol/L (3.5-5.1)
[2021-07-19] MEDS ORDERED: CALCIUM GLUCONATE 1 GM in SODIUM CHLORIDE 0.9% 100 ML IVPB STA (15:34)
[2021-07-19] MEDS ORDERED: DEXTROSE 50% SYRINGE 50 ML IVP STA (15:34)
[2021-07-19] MEDS ORDERED: INSULIN REGULAR 100 UNIT/ML VIAL (IV) IV STA (15:34)
[2021-07-20] MEDS: NITROGLYCERIN OINT 1 INCH/GM PACKET TOPICAL SCH ×3 (00:32→12:46)
[2021-07-20 05:27] LABS: Calcium 8.6 mg/dL (8.4-10.2); Potassium 5.4 mmol/L (3.5-5.1)
[2021-07-20 06:00] LABS: Anisocytosis Slight; Basophils % (A) 0 %; Eosinophils # (A) 0.1 k/uL (0-0.7); Eosinophils % (A) 3 %; HCT 24.7 % (39.0-53.0); HGB 8.2 gm/dL (13.0-17.5); Hypochromasia Slight; Lymphocytes # (A) 1.2 k/uL (1.0-4.8); Lymphocytes % (A) 22 %; MCH 34.8 pg (25.0-35.0); MCHC 33.4 g/dL (31.0-37.0); MCV 104.3 fL (80.0-100.0); Macrocytosis Moderate; Mean Platelet Volume 7.6; Monocytes # (A) 0.2 k/uL (0-1.0); Monocytes % (A) 4 %; Neutrophils # (A) 3.7 k/uL (1.3-7.7); Neutrophils % (A) 69 %; Platelet Count 168 k/uL (150-450); Poikilocytosis Moderate; RBC 2.37 m/uL (4.30-5.90); RDW 19.5 % (11.5-15.5); WBC 5.4 k/uL (3.8-10.6)
[2021-07-20] MEDS: carvediloL 6.25 MG TAB PO SCH (06:45)
[2021-07-20] MEDS: INSULIN DETEMIR (LEVEMIR) 100 UNIT/ML SYR SQ SCH (06:45)
[2021-07-20] MEDS ORDERED: SODIUM POLYSTYRENE SULFONATE 15 GM/60 ML BOTTLE PO ONE (07:00)
--- NOTE | 2021-07-20 07:02 | P.PN ---
Subjective Progress Note Date: 07/20/21 Principal diagnosis: GI bleed 75-year-old male patient who presented to the burst department yesterday because of chest pain. He is known to have coronary artery disease and has undergone multiple coronary stenting. The patient has had previous [place] 2 back in 1994 and 2001. He also has history of ischemic cardiomyopathy with an ejection fraction of 35-40% along with nonsustained ventricular tachycardia. His last cardiac catheterization was in August 2020 and it showed nonocclusive disease. No further intervention was done. He follows up with Dr. Hernadez. Other comorbi dities include COPD, diabetes mellitus, hypertension, hyperlipidemia and peripheral vascular disease. I do see this patient to regularly in my office regarding his COPD. He is known to have a chronic stable COPD and he is in a ex-smoker. His FEV1 is in the order of 66% of predicted. He also has a pulmonary nodule identified on a CAT scan of the chest from 10/26/2018 and that was a 5 mm left lower lobe pulmonary nodule that was very small to characterize. In the emergency, the patient was afebrile. The patient initial blood pressure was 86/42. He had also a lower blood pressure 76/31. EKG showed a normal sinus rhythm. No acute ischemic changes. There was a RBB pattern. The hemoglobin came back at 4.5. Troponins were negative. Immediately the patient was given a total of 2 units of packed RBC. Subsequent hemoglobin from this morning is up to 6.6. Patient also receives fluids. Currently is on IV fluids running at the rate of 40 mL an hour of normal saline. D-dimer came back at 1.87. The patient underwent further testing with a CT angiogram that showed subsegmental atel ectasis in the lung bases are noted as of any pulmonary embolism. He also had cardiomegaly. No evidence of any suspicious pulmonary nodules. The patient was having some nausea. He was given Zofran. He was suspected to have some GI bleed. His stool Hemoccult came back positive. He also had a potassium level of 6.40 [facility] and he was given a combination of Kayexalate and IV bicarb and D50 insulin and the subsequent potassium level came down to 5.8. Clinically, the patient denies having any melanotic stools. No history of any hematemesis. No recent EGD or colonoscopy. Coagulation profile was essentially within normal limits. In terms of education, the patient is not taking any form of anticoagulation. He is on ASA and he is on no other antiplatelet agents. No liver cirrhosis. No 70 peptic ulcer disease. He takes iron supplements 325 mg on a daily basis. The patient underwent a recent right knee replacement this was done by Dr. Gorge Abarca at [facility] at around 2 weeks ago. The surgical wound site is dry clean and intact. No thigh swelling. 07/19/2021, the patient is hemodynamically stable in the intensive care unit. The patient received a total of 3 units of packed RBC. No signs of any acute GI bleed. He currently is nothing by mouth and is awaiting his EGD and colonoscopy. He is free of any chest pain. He remains hemodynamically stable. That hemoglobin from today is at 8.6. Platelet count is at 208. BNP is at 38 with a creatinine of 1.06. Potassium level is at 5.2. The patient is seen today 07/20/2021 in follow-up in the intensive care unit. 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 He is currently sitting up at the bedside. Awake and alert in no acute distress. Maintaining good O2 saturations in the 90s on room air. Denies any dizziness or lightheadedness. He's been hemodynamically stable. Upper endoscopy revealed multiple clean based gastric ulcers in the body of the antrum measuring between 5 mm and 1.5 cm in size. At least 20 ulcers noted. No active bleeding. Colonoscopy revealed moderate sigmoid diverticulosis but no evidence of colorectal neoplasia. He's had no further bleeding. He received a total of 3 units of packed red blood cells this admission. Current hemoglobin 8.2. White count 5.4. Sodium 136. Potassium 5.4. Creatinine 0.99. He remains on Protonix 40 mg twice a day. Educated to avoid NSAIDs. Objective - Vital Signs Vital signs: Vital Signs Temp 98.4 F 07/19/21 20:00 Pulse 69 07/19/21 16:00 Resp 16 07/20/21 04:00 BP 108/34 07/20/21 05:15 Pulse Ox 81 L 07/19/21 17:00 Intake & Output 07/19/21 07/19/21 07/20/21 06:59 18:59 06:59 Intake Total 1920 200 240 Output Total 850 1850 0 Balance 1070 -1650 240 Weight 117.7 kg 115 kg Intake: IV 840 200 240 .9 40 840 0 240 Oral 1080 Output: Urine 850 1850 0 Other: Voiding Method Bedpan External Catheter External Catheter External Catheter # Voids 1 1 # Bowel Movements 1 2 - Exam GENERAL: This is a pleasant 75-year-old male patient, is well nourished and he is obese, breathing is nonlabored and he is comfortable for now. VITAL SIGNS: Heart rate, blood pressure, respiratory rate reviewed as recorded in nurse's notes. EYES: Pupils are round and reactive. Extraocular movements are intact. No conjunctival / lid redness or swelling. ENT: No external evidence of injury, swelling, or ecchymosis. Airway is patent. Throat is clear. NECK: Nontender. No swelling or evidence of injury. No subcutaneous emphysema. Trachea is midline. No thyroid mass. HEART: Regular rate and rhythm. Good peripheral pulses. LUNGS/CHEST: Breath sounds clear and equal bilaterally. No rales, rhonchi, or wheezes. No ecchymosis, subcutaneous emphysema, or tenderness. ABDOMEN: Abdomen soft without tenderness. No palpable masses or organomegaly. No peritoneal signs. No abdominal wall swelling or ecchymosis. Rectal exam: There is no hemorrhage identified. There is dark stool noted on digital rectal examination and Hemoccult is sent. EXTREMITIES: Swelling noted to the right lower extremity primarily in the knee and distal to this with postop changes noted. No evidence of erythema or drainage. The tuan are still in place in the right knee. No evidence of any hematoma. NEUROLOGIC: Sensation is grossly intact. Cranial nerve exam reveals face is symm etrical, tongue is midline, speech is clear. SKIN: No abrasions or ecchymosis is noted. No induration or masses noted. Appears fairly pale PSYCHIATRIC: Alert and oriented. Appropriate behavior and judgment. - Labs CBC & Chem 7: 07/20/21 04:25 07/20/21 04:25 Labs: Abnormal Lab Results - Last 24 Hours (Table) 07/17/21 07/19/21 07/19/21 Range/Units 22:09 04:08 14:40 RBC (4.30-5.90) m/uL Hgb (13.0-17.5) gm/dL Hct (39.0-53.0) % MCV (80.0-100.0) fL RDW (11.5-15.5) % Neutrophils # (Manual) 9.00 H (1.3-7.7) k/uL Nucleated RBCs 2 H (0-0) /100 WBC Sodium 135 L (137-145) mmol/L Potassium 6.1 H* (3.5-5.1) mmol/L Chloride (98-107) mmol/L BUN 27 H (9-20) mg/dL Glucose 114 H (74-99) mg/dL Total Bilirubin 2.3 H (0.2-1.3) mg/dL Total Protein 6.2 L (6.3-8.2) g/dL Albumin 3.3 L (3.5-5.0) g/dL Crossmatch See Detail 07/19/21 07/20/21 07/20/21 Range/Units 21:23 04:25 04:25 RBC 2.37 L (4.30-5.90) m/uL Hgb 8.2 L (13.0-17.5) gm/dL Hct 24.7 L (39.0-53.0) % MCV 104.3 H (80.0-100.0) fL RDW 19.5 H (11.5-15.5) % Neutrophils # (Manual) (1.3-7.7) k/uL Nucleated RBCs (0-0) /100 WBC Sodium 136 L (137-145) mmol/L Potassium 5.3 H 5.4 H (3.5-5.1) mmol/L Chloride 108 H (98-107) mmol/L BUN (9-20) mg/dL Glucose 120 H (74-99) mg/dL Total Bilirubin (0.2-1.3) mg/dL Total Protein (6.3-8.2) g/dL Albumin (3.5-5.0) g/dL Crossmatch Assessment and Plan Assessment: 1 chest pain due to severe anemia, unlikely to be related to an acute coronary event. The patient is known to have underlying CAD and mismatch created by the severe anemia probably dose his ongoing chest pain. Currently is chest tube with a total of 3 units of packed RBCs The patient remains free of any chest pain. 2 severe anemia with a hemoglobin of 4.5 at the time of admission, transfused with a total of 3 units of packed RBC. Current hemoglobin 8.2. EGD/colonoscopy performed 07/19/2021 revealed multiple clean-based gastric ulcers in the body and antrum measuring between 5 mm to 1.5 cm in size, at least 20 ulcers noted with no active bleeding. Colonoscopy revealed moderate sigmoid diverticulosis but no evidence of colorectal neoplasia. 3 coronary artery disease with multivessel involvement. Last cardiac catheterization from August 2020 showed nonocclusive disease. He has undergone multiple PCI's and stenting 4 COPD, with an FEV1 of 66% of predicted, currently inactive in stable 5 ischemic artery myopathy with an ejection fraction of 35-40% 6 previous history of nonsustained V. tach 7 recent right knee replacement, completed approximately 2 weeks ago without any complications and the surgical wound site is dry clean and intact 8 diabetes mellitus 9 hyperlipidemia 10 hypertension. Note that the patient was quite hypotensive the time of admission and his blood pressure improved with fluid resuscitation and blood products. 11 peripheral vascular disease 12 gout. 13 acute kidney injury likely secondary to above, recovered 14 acute hyperkalemia, treated and the potassium level is down to 5.4 Plan The patient was seen and evaluated by Dr. Gallego EGD/colonoscopy results reviewed No further active bleeding, hemoglobin 8.2 Currently stable from the pulmonary and critical care standpoint I, the cosigning physician, performed a history & physical examination of the patient. Lungs sounds are clear. Maintaining good O2 saturations in the 90s on room air. I discussed the assessment and plan of care with my nurse practitioner, Shirlene Jonas. I attest to the above note as dictated by her.
[2021-07-20] MEDS: ATORVASTATIN 80 MG TAB PO SCH (08:17)
[2021-07-20] MEDS: PANTOPRAZOLE 40 MG TABLET PO SCH (08:17)
[2021-07-20] MEDS: MAGNESIUM OXIDE 400 MG TAB PO SCH (08:17)
[2021-07-20] MEDS: FERROUS SULFATE 325 MG TAB PO SCH (08:17)
[2021-07-20] MEDS: allopurinoL 100 MG TAB PO SCH (08:18)
[2021-07-20] MEDS: GABAPENTIN 100 MG CAP PO SCH (08:18)
[2021-07-20 10:41] VITALS: TEMP 99
[2021-07-20 10:55] VITALS: BP 99/49; PULSE 71; RESP 15
--- NOTE | 2021-07-20 11:22 | PN ---
PROGRESS NOTE NATHANIEL / MORIAHN: [id number] /
[2021-07-20] MEDS: MORPHINE SULFATE 2 MG/ML SYRINGE IVP PRN (12:46)
--- NOTE | 2021-07-20 14:27 | P.DS ---
Providers Date of admission: 07/17/21 23:44 Attending physician: James Irizarry MD Consults: 07/17/21 23:44 Consult Physician Urgent Consulting Provider: Ankur Morrow Consult Reason/Comments: cp Do you want consulting provider notified?: Yes Consult Physician Urgent Consulting Provider: Gabriela Akhtar Consult Reason/Comments: gi bleed Do you want consulting provider notified?: Yes 07/18/21 00:17 Consult Physician Urgent Consulting Provider: Kemi Gallego Consult Reason/Comments: ICU mgmt Do you want consulting provider notified?: Already Contacted Primary care physician: [facility] Course: 75 years old male with past medical history of coronary artery disease status post stenting in 2001, history of nonsustained V. tach, ischemic cardiomyopathy EF 35-40%, COPD, type 2 diabetes, GERD, hypertension, hyperlipidemia, gout, tinnitus with recent cardiac cath in August 2020 suggestive of moderate nonobstructive disease involving distal right RCA had mild disease involving the left coronary system. Medical management was recommended. Patient is a former smoker quit smoking 20 years ago smoked for 35 years and quit 20 years ago. Patient had a total knee arthroplasty one week ago at [facility] and was discharged on meloxicam. Patient started complaining of chest pain 3 days ago associated with nausea and vomiting. Nitro was given at the [facility] with the improvement in symptoms. Patient had multiple episodes of vomiting for the past 2 days which will coffee ground in color. Chest pain was central in location nonradiating and nonexertional. He does complain of shortness of breath associated with chest pain.. Patient felt weak and tired and was sent to the hospital for evaluation On evaluation in the ER patient had a blood pressure on admission was 86/42 pulse 80 respiratory rate 20 afebrile. On assessment of patient's lab, patient hemoglobin of 5.3 on admission repeat check suggested 4.5. Patient underwent 3 units of transition since last night with lead to improvement of hemoglobin to 8.4. Patient denies any black stools but fecal occult in the ER was positive. WBC 12.1 MCV 109.2 platelets 219 d-dimer 1.87 potassium 6.4 sodium 134 20 BUN 60 creatinine 1.34 glucose 331 magnesium 2.7 total bilirubin 1.8 troponin down to negative LDL 73 and VLDL 40 was negative.. Dehydrated UA. Patient seen the pulmonary, GI and cardiology. IV fluids were contributory physical per hour. Initiated on Protonix 40 IV twice a day. Aspirin and meloxicam and Tommy inhibitors held. Would recommend initiating Coreg at 6.25 twice a day. Echocardiogram ordered. EGD and colonoscopy tomorrow. clear Liquid diet recommended 07/19 patient examined at bedside denies any chest pain shortness of breath. He did receive prep for colonoscopy yesterday but continues to have bowel movements. Labs reviewed patient's hemoglobin stabilized at 8.6 and WBC 10.6, sodium is 136 potassium slightly high at 5.2 BUN 38 creatinine 1.06 vitals are stable afebrile pulse 76 respiratory rate 16 blood pressure 118/68 sitting and saturation 97% on room air. Patient plans for EGD and colonoscopy today. Continue to remain nothing by mouth 07/20 patient examined bedside. Blood pressure is stable last blood pressure 128/58, respiratory respiratory rate 18 saturating at 98% on room air. Patient had no episode of bleeding overnight. No episode of agitation. He denies any chest pain or shortness of breath. Discuss with Cardiology, comfortable at resuming cardiac Coreg at 6.25 twice a day and lisinopril 2.5 mg daily hold Imdur and Lasix. EGD suggestive of more than 20 gastric ulcers. 8 colonoscopy suggestive of sigmoid diverticulosis and no active bleeding Protonix 40 by mouth twice a day. Patient is medically cleared to be transferred to [facility] Physical exam - Constitutional General appearance: cooperative, no acute distress, obese weighing 2 L of oxygen - EENT Eyes: anicteric sclerae, PERRLA, normal appearance ENT: hearing grossly normal - Neck Neck: no lymphadenopathy, normal ROM, no other, no rigidity, no stridor, no thyromegaly - Respiratory Respiratory: bilateral: CTA, negative: diminished, dullness, rales, rhonchi - Cardiovascular Rhythm: regular Heart sounds: normal: S1, S2 Abnormal Heart Sounds: 2/ 6 systolic murmur, no diastolic murmur, no rub, no S3 Gallop, no S4 Gallop, no click, bilateral lower extremity swelling worse on the left - Gastrointestinal General gastrointestinal: normal bowel sounds, soft nontender epigastric region - Integumentary Integumentary: no rash - Neurologic Neurologic: No motor or sensory deficit - Musculoskeletal Musculoskeletal: gait not assessed strength equal bilaterally right knee with tuan with surrounding inflammation no redness or drainage noted - Psychiatric Psychiatric: A&O x's 3, appropriate affect Assessment and plan #1 acute blood loss anemia secondary to upper GI bleed. #12 GI bleed sec to upper peptic ulcer disease #3 hypovolemic shock #4 chest pain with acute troponin elevation. #5 right knee arthroplasty #6 hyperkalemia acute kidney injury on chronic kidney disease #7 COPD DuoNeb as needed #8 type 2 diabetes #9 Ischemic cardiomyopathy not in acute exacerbation #10 coronary artery disease status post stenting last in 2002 #11 hyperlipidemia #12 history of supraventricular tachycardia #13 GERD #14 former smoker #15 Peripheral artery disease #16 hypertension Coreg initiated a low-dose #17 sigmoid diverticulosis #18 disposition discharge to [facility] Patient Condition at Discharge: Serious Plan - Discharge Summary New Discharge Prescriptions: New carvediloL [Coreg] 6.25 mg PO BID-W/MEALS tab Insulin NPH Hum/Reg Insulin Hm [NovoLIN 70-30 100 UNIT/ML VIAL] 10 unit SQ AC-SUPPER #10 ml Pantoprazole [Protonix] 40 mg PO BID tablet. Acetaminophen Tab [Tylenol] 650 mg PO Q6HR PRN tab PRN Reason: Fever And/ Or Pain Lisinopril [Prinivil] 2.5 mg PO DAILY 30 Days tab Continue metFORMIN HCL [Glucophage] 1,000 mg PO BID Ferrous Sulfate [Iron (65 MG Elemental)] 325 mg PO DAILY Insulin NPH Hum/Reg Insulin Hm [NovoLIN 70-30 100 UNIT/ML VIAL] 20 unit SQ AC-BRKFST #0 Magnesium Oxide [Mag-Ox] 250 mg PO DAILY Atorvastatin [Lipitor] 80 mg PO DAILY #30 tab Gabapentin [Neurontin] 100 mg PO BID allopurinoL [Zyloprim] 100 mg PO DAILY Nitroglycerin Sl Tabs [Nitrostat] 0.4 mg SUBLINGUAL Q5M PRN PRN Reason: Chest Pain Discontinued Isosorbide Mononitrate [Imdur] 30 mg PO DAILY Furosemide [Lasix] 20 mg PO DAILY Aspirin 81 mg PO DAILY chew carvediloL [Coreg*] 12.5 mg PO BID-W/MEALS tab lisinopriL [Zestril] 2.5 mg PO DAILY #30 tab Meloxicam [Mobic] 7.5 mg PO DAILY Discharge Medication List metFORMIN HCL [Glucophage] 1,000 mg PO BID 06/07/14 [History] Ferrous Sulfate [Iron (65 MG Elemental)] 325 mg PO DAILY 03/07/16 [History] Insulin NPH Hum/Reg Insulin Hm [NovoLIN 70-30 100 UNIT/ML VIAL] 20 unit SQ AC- BRKFST #0 07/29/17 [Rx] Magnesium Oxide [Mag-Ox] 250 mg PO DAILY 07/11/19 [History] Atorvastatin [Lipitor] 80 mg PO DAILY #30 tab 08/26/20 [Rx] Gabapentin [Neurontin] 100 mg PO BID 07/17/21 [History] Nitroglycerin Sl Tabs [Nitrostat] 0.4 mg SUBLINGUAL Q5M PRN 07/17/21 [History] allopurinoL [Zyloprim] 100 mg PO DAILY 07/17/21 [History] Acetaminophen Tab [Tylenol] 650 mg PO Q6HR PRN tab 07/20/21 [Rx] Insulin NPH Hum/Reg Insulin Hm [NovoLIN 70-30 100 UNIT/ML VIAL] 10 unit SQ AC- SUPPER #10 ml 07/20/21 [Rx] Lisinopril [Prinivil] 2.5 mg PO DAILY 30 Days tab 07/20/21 [Rx] Pantoprazole [Protonix] 40 mg PO BID tablet. 07/20/21 [Rx] carvediloL [Coreg] 6.25 mg PO BID-W/MEALS tab 07/20/21 [Rx] Follow up Appointment(s)/Referral(s): Ankur Morrow MD [STAFF PHYSICIAN] - 2 Weeks Carrie Izaguirre MD [Primary Care Provider] - 1-2 days Activity/Diet/Wound Care/Special Instructions: lisinopril can be resumed , patient to hold imdur, lasix till seen by cardiology Discharge Disposition: TRANSFER TO SNF/ECF
--- NOTE | 2021-07-20 17:33 | P.PN ---
Subjective Progress Note Date: 07/20/21 Principal diagnosis: Anemia 75-year-old male who was admitted to the hospital with severe symptomatic anemia with a hemoglobin of 5.3 status post 3 units of PRBC transfusion. Patient states he been having some darker stools. He underwent an EGD and colonoscopy yesterday. The upper endoscopy revealed multiple clean-based gastric ulcers in the body and antrum measuring between 5 mm to 1-1/2 cm in size, at least 20 ulcers noted with no active bleeding. Colonoscopy revealed moderate sigmoid diverticulosis but no evidence of colorectal neoplasia. Today's hemoglobin was stable at 8.2. He is denying any abdominal pain, nausea, or vomiting. He is not having any reports of any black or blood in his stool. He is tolerating his diet. Objective - Vital Signs Vital signs: Vital Signs Temp 98.4 F 07/19/21 20:00 Pulse 69 07/19/21 16:00 Resp 16 07/20/21 04:00 BP 108/34 07/20/21 07:00 Pulse Ox 81 L 07/19/21 17:00 Intake & Output 07/19/21 07/20/21 07/20/21 18:59 06:59 18:59 Intake Total 200 240 60 Output Total 1850 0 1200 Balance -1650 240 -1140 Weight 115 kg Intake: IV 200 240 60 .9 40 0 240 60 Output: Urine 1850 0 1200 Stool 0 Emesis 0 Other: Voiding Method External Catheter External Catheter # Voids 1 # Bowel Movements 2 - Exam General appearance: The patient is alert, oriented, appears in no acute distress. HET: Head is normocephalic and atraumatic. Conjunctiva pink. Sclera anicteric. Neck: Supple without lymphadenopathy. Abdomen: Soft, nontender, nondistended with bowel sounds. No guarding or rigidity. Extremities: Normal skin color and turgor. No pedal edema Skin: No rashes, no jaundice Neurological: No focal deficits. Alert and oriented 3. - Labs CBC & Chem 7: 07/20/21 04:25 07/20/21 04:25 Labs: Abnormal Lab Results - Last 24 Hours (Table) 07/17/21 07/19/21 07/19/21 Range/Units 22:09 14:40 21:23 RBC (4.30-5.90) m/uL Hgb (13.0-17.5) gm/dL Hct (39.0-53.0) % MCV (80.0-100.0) fL RDW (11.5-15.5) % Sodium 135 L (137-145) mmol/L Potassium 6.1 H* 5.3 H (3.5-5.1) mmol/L Chloride (98-107) mmol/L BUN 27 H (9-20) mg/dL Glucose 114 H (74-99) mg/dL Total Bilirubin 2.3 H (0.2-1.3) mg/dL Total Protein 6.2 L (6.3-8.2) g/dL Albumin 3.3 L (3.5-5.0) g/dL Crossmatch See Detail 07/20/21 07/20/21 Range/Units 04:25 04:25 RBC 2.37 L (4.30-5.90) m/uL Hgb 8.2 L (13.0-17.5) gm/dL Hct 24.7 L (39.0-53.0) % MCV 104.3 H (80.0-100.0) fL RDW 19.5 H (11.5-15.5) % Sodium 136 L (137-145) mmol/L Potassium 5.4 H (3.5-5.1) mmol/L Chloride 108 H (98-107) mmol/L BUN (9-20) mg/dL Glucose 120 H (74-99) mg/dL Total Bilirubin (0.2-1.3) mg/dL Total Protein (6.3-8.2) g/dL Albumin (3.5-5.0) g/dL Crossmatch Assessment and Plan (1) GI bleed Narrative/Plan: 75-year-old male who recently underwent right knee surgery and was then extended care facility for rehab came in to the emergency department yesterday with comp laints of chest pain. Has multiple comorbidities including coronary artery disease status post stenting. He denies any anticoagulation. He has been on a daily low-dose aspirin and was prescribed meloxicam after his surgery and has been taking it daily. He denies any previous history of peptic ulcer disease. On admission he was noted to have a hemoglobin of 5.3 with a repeat at 4.5, he was transfused 2 units of PRBC transfusion. This morning the patient's repeat hemoglobin was 6.6 and a another unit of PRBC transfusion was ordered. He denies any previous history of GI bleed. He is never had an upper endoscopy, last colonoscopy greater than 10 years ago. He is denying abdominal pain, nausea, or vomiting. Unclear etiology of anemia, GI bleed needs to be considered. We'll proceed with EGD and colonoscopy tomorrow. Patient underwent EGD and colonoscopy. Upper endoscopy revealed multiple clean- based gastric ulcers in the body and antrum, at least 20 ulcers noted with no active bleeding. Colonoscopy revealed moderate sigmoid diverticulosis but no evidence of colorectal neoplasia. Status: Acute Code(s): K92.2 - GASTROINTESTINAL HEMORRHAGE, UNSPECIFIED SNOMED Code(s): 47122912 (2) Anemia Status: Acute Code(s): D64.9 - ANEMIA, UNSPECIFIED SNOMED Code(s): 706612632 Plan: 1. Continue symptomatic and supportive care 2. Diet as tolerated 3. Protonix 40 mg twice a day 4. Avoid NSAIDs 5. Patient to follow-up with gastroenterology for biopsy results 6. Patient is cleared for discharge from gastroenterology Thank you for this consultation Dr. Basil Akhtar I agree with the dictator's note, documented as a scribe by Rocio Fleming.
== END 2021-07-20 14:45 | DRG 377 ==
LOC: EC 19:46 → 2SICU 23:44
PROVIDERS: ADMIT Internal Medicine; ATTEND Internal Medicine
PROC: 0DJ08ZZ Inspection of Upper Intestinal Tract, Via Natural or Artificial Opening Endoscopic (ICD-10-PCS; principal; 2021-07-17)
PROC: 0DJD8ZZ Inspection of Lower Intestinal Tract, Via Natural or Artificial Opening Endoscopic (ICD-10-PCS; 2021-07-17)
PROC: 30233N1 Transfusion of Nonautologous Red Blood Cells into Peripheral Vein, Percutaneous Approach (ICD-10-PCS; 2021-07-18)
DX: K25.4 Chronic or unspecified gastric ulcer with hemorrhage (principal); R57.1 Hypovolemic shock; I26.99 Other pulmonary embolism without acute cor pulmonale; D62 Acute posthemorrhagic anemia; I50.22 Chronic systolic (congestive) heart failure; I25.110 Atherosclerotic heart disease of native coronary artery with unstable angina pectoris; I13.0 Hypertensive heart and chronic kidney disease with heart failure and stage 1 through stage 4 chronic kidney disease, or unspecified chronic kidney disease; I45.2 Bifascicular block; J98.11 Atelectasis; N17.9 Acute kidney failure, unspecified; Z20.822 Contact with and (suspected) exposure to COVID-19; E11.22 Type 2 diabetes mellitus with diabetic chronic kidney disease; E11.51 Type 2 diabetes mellitus with diabetic peripheral angiopathy without gangrene; E66.9 Obesity, unspecified; J44.9 Chronic obstructive pulmonary disease, unspecified; E78.1 Pure hyperglyceridemia; E78.5 Hyperlipidemia, unspecified; N18.9 Chronic kidney disease, unspecified; M10.9 Gout, unspecified; Z79.899 Other long term (current) drug therapy; E86.0 Dehydration; K57.30 Diverticulosis of large intestine without perforation or abscess without bleeding; K21.9 Gastro-esophageal reflux disease without esophagitis; E87.5 Hyperkalemia; R79.89 Other specified abnormal findings of blood chemistry; I08.1 Rheumatic disorders of both mitral and tricuspid valves; H93.13 Tinnitus, bilateral; I25.5 Ischemic cardiomyopathy; Z95.5 Presence of coronary angioplasty implant and graft; Z68.39 Body mass index [BMI] 39.0-39.9, adult; F17.210 Nicotine dependence, cigarettes, uncomplicated; I25.2 Old myocardial infarction; Z79.1 Long term (current) use of non-steroidal anti-inflammatories (NSAID); Z79.4 Long term (current) use of insulin; Z79.82 Long term (current) use of aspirin; Z87.442 Personal history of urinary calculi; Z96.653 Presence of artificial knee joint, bilateral; Z86.79 Personal history of other diseases of the circulatory system
CPT/HCPCS: 36415; 43239; 45378; 71275; 80048; 80053; 80061; 81001; 82272; 82941; 83735; 83880; 84132; 84484; 85025; 85027; 85379; 85610; 85730; 86850; 86900; 86901; 86920; 87635; 88305; 88342; 93005; 93306; 96361; 96374; 96375; 99285

== ENCOUNTER → 2021-11-01 | Outpatient (CLI) | payer MEDICARE ==
[2021-11-01 15:54] LABS: ALT 26 U/L (10-49); AST 27 U/L (14-35); Chol/HDL Ratio 3.34 Ratio; LDL Cholesterol,Calculated 42.4 mg/dL (0.0-131.0)
== END | disposition home or self-care (01) ==
LOC: LABWHC1 09-24 08:32
PROVIDERS: ATTEND Internal Medicine Interventional Cardiology
DX: E78.2 Mixed hyperlipidemia (principal)
CPT/HCPCS: 36415; 80061; 84450; 84460

== ENCOUNTER 2021-11-27 08:35 | Inpatient (IN) | payer MEDICARE ==
[2021-11-27] MEDS ORDERED: IBUPROFEN 600 MG TAB PO STA (09:05)
[2021-11-27] MEDS ORDERED: ACETAMINOPHEN TAB 500 MG TAB PO STA (09:06)
--- NOTE | 2021-11-27 09:10 | ED ---
General Adult HPI - General Chief complaint: Nausea/Vomiting/Diarrhea Stated complaint: flu symptoms Time Seen by Provider: 11/27/21 08:42 Source: patient, EMS Mode of arrival: EMS Limitations: no limitations - History of Present Illness Initial comments: This 76-year-old male past medical history CAD, COPD, CHF presents to the emergency department with lethargy, fever, shortness of breath, vomiting x1 day. Patient states he received his booster COVID-19 vaccine last Friday without any complications. Patient states he vomited one time this morning but states it was just bile and coughing up mucus. He denies any chest pain, headache, abdominal pain, change in vision. - Related Data Home Medications Medication Instructions Recorded Confirmed metFORMIN HCL [Glucophage] 1,000 mg PO BID 06/07/14 11/27/21 Ferrous Sulfate [Iron (65 MG 325 mg PO DAILY 03/07/16 11/27/21 Elemental)] Magnesium Oxide [Mag-Ox] 250 mg PO DAILY 07/11/19 11/27/21 Nitroglycerin Sl Tabs [Nitrostat] 0.4 mg SUBLINGUAL Q5M PRN 07/17/21 11/27/21 allopurinoL [Zyloprim] 100 mg PO DAILY 07/17/21 11/27/21 Carvedilol [Coreg] 12.5 mg PO BID 11/27/21 11/27/21 Previous Rx's Medication Instructions Recorded Insulin NPH Hum/Reg Insulin Hm 20 unit SQ AC-BRKFST #0 07/29/17 [NovoLIN 70-30 100 UNIT/ML VIAL] Atorvastatin [Lipitor] 80 mg PO DAILY #30 tab 08/26/20 Lisinopril [Prinivil] 2.5 mg PO DAILY 30 Days tab 07/20/21 Allergies Allergy/AdvReac Type Severity Reaction Status Date / Time No Known Allergies Allergy Verified 11/27/21 12:07 Review of Systems ROS Statement: Those systems with pertinent positive or pertinent negative responses have been documented in the HPI. ROS Other: All systems not noted in ROS Statement are negative. Past Medical History Past Medical History: Coronary Artery Disease (CAD), Chest Pain / Angina, Heart Failure, COPD, Diabetes Mellitus, GERD/Reflux, Hyperlipidemia, Hypertension, Myocardial Infarction (IN), Pneumonia, Supraventricular Tachycardia (SVT), Vascular Disorder Additional Past Medical History / Comment(s): Ischemic cardiomyopathy, nonsustained ventriclar arrhythmia, systolic heart failure, IN x 2 in 2001 and 1994, thrombocytopenia, cellulitis 2ndary to local trauma L patella, kidney stones which pt believes he passed, gout bilateral feet/ toes, occasional bilateral tinnitis, past 3-4 years intermittent bilateral leg pain but pt states he now takes quinine when this occurs and has relief of pain. 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 Past Anesthesia/Blood Transfusion Reactions: No Reported Reaction Additional Past Anesthesia/Blood Transfusion Reaction / Comment(s): never had a blood tranfusion Date of Last Stent Placement:: 02/05/19 Past Psychological History: No Psychological Hx Reported Smoking Status: Former smoker Past Alcohol Use History: Occasional Past Drug Use History: None Reported - Past Family History Father History Unknown: Yes Additional Family Medical History / Comment(s): Pt does not know his father's history. His parents were when he was 6 yrs old. Mother History Unknown: Yes Family Medical History: Cancer Additional Family Medical History / Comment(s): Pt states mother had some form of cancer which she from at the age of 77yrs. General Exam Limitations: no limitations General appearance: alert, in no apparent distress, lethargic (Falling asleep while in conversation), obese Head exam: Present: atraumatic Eye exam: Present: normal appearance, EOMI ENT exam: Present: mucous membranes moist Respiratory exam: Present: decreased breath sounds, other (Mild tachypnea (patient states it is his baseline)). Absent: respiratory distress, wheezes, rales, rhonchi, stridor Cardiovascular Exam: Present: regular rate, normal rhythm, normal heart sounds. Absent: systolic murmur, diastolic murmur, rubs, gallop, clicks GI/Abdominal exam: Present: soft, normal bowel sounds. Absent: distended, tenderness, guarding, rebound, rigid Extremities exam: Present: normal inspection, full ROM. Absent: tenderness Back exam: Present: normal inspection. Absent: CVA tenderness (R), CVA tenderness (L) Neurological exam: Present: alert, oriented X3 Psychiatric exam: Present: normal affect, normal mood Skin exam: Present: warm, dry, intact, normal color. Absent: rash Course Vital Signs 11/27/21 11/27/21 11/27/21 08:42 09:16 10:13 Temperature 102.7 F H 100.9 F H Pulse Rate 93 96 92 Respiratory 24 20 26 H Rate Blood Pressure 137/65 130/71 120/66 O2 Sat by Pulse 95 95 94 L Oximetry EKG Findings - EKG Comments: EKG Findings:: EKG: Sinus rhythm with occasional PVC and PACs. Ventricular rate 97 bpm. WV interval 174ms. Episcopalian 132ms. QT/QTc 392/497ms. No changes compared to prior EKGs Medical Decision Making - Medical Decision Making This 76-year-old male has a past medical history of COPD, CAD, CHF presents to the emergency department with shortness of breath, lethargy x1 day. Chest x-ray showed cardiomegaly with central vascular congestion, correlate for CHF exacerbation. In addition or focal acute infiltrate left lower lung noted. Correlate for infection or pneumonia. Labs unremarkable. IV antibiotics started, blood cultures and lactic acid drawn for pneumonia. 4 Lasix given for CHF exacerbation. Patient will be admitted. Spoke with Dr. Baldwin who agrees to accept this patient. - Lab Data Result diagrams: 11/27/21 09:11 11/27/21 09:11 Lab Results 11/27/21 11/27/21 11/27/21 Range/Units 09:11 09:11 09:11 WBC 6.5 (3.8-10.6) k/uL RBC 4.08 L (4.30-5.90) m/uL Hgb 13.3 (13.0-17.5) gm/dL Hct 40.3 (39.0-53.0) % MCV 98.9 (80.0-100.0) fL MCH 32.6 (25.0-35.0) pg MCHC 33.0 (31.0-37.0) g/dL RDW 15.5 (11.5-15.5) % Plt Count 76 L (150-450) k/uL MPV 8.3 Neutrophils % 80 % Lymphocytes % 11 % Monocytes % 5 % Eosinophils % 2 % Basophils % 0 % Neutrophils # 5.2 (1.3-7.7) k/uL Lymphocytes # 0.7 L (1.0-4.8) k/uL Monocytes # 0.3 (0-1.0) k/uL Eosinophils # 0.1 (0-0.7) k/uL Basophils # 0.0 (0-0.2) k/uL Manual Slide Review Performed Anisocytosis (manual) Present Macrocytosis Slight Sodium 139 (137-145) mmol/L Potassium 4.5 (3.5-5.1) mmol/L Chloride 106 (98-107) mmol/L Carbon Dioxide 22 (22-30) mmol/L Anion Gap 11 mmol/L BUN 11 (9-20) mg/dL Creatinine 0.78 (0.66-1.25) mg/dL Est GFR (CKD-EPI)AfAm >90 (>60 ml/min/1.73 sqM) Est GFR (CKD-EPI)NonAf 89 (>60 ml/min/1.73 sqM) Glucose 204 H (74-99) mg/dL Calcium 9.3 (8.4-10.2) mg/dL Total Bilirubin 2.7 H (0.2-1.3) mg/dL AST 37 (17-59) U/L ALT 25 (4-49) U/L Alkaline Phosphatase 130 H (38-126) U/L NT-Pro-B Natriuret Pep pg/mL Total Protein 7.4 (6.3-8.2) g/dL Albumin 4.2 (3.5-5.0) g/dL Urine Color Yellow Urine Appearance Clear (Clear) Urine pH 6.5 (5.0-8.0) Ur Specific [place] 1.018 (1.001-1.035) Urine Protein 1+ H (Negative) Urine Glucose (UA) 3+ H (Negative) Urine Ketones 1+ H (Negative) Urine Blood Negative (Negative) Urine Nitrite Negative (Negative) Urine Bilirubin Negative (Negative) Urine Urobilinogen 2.0 (<2.0) mg/dL Ur Leukocyte Esterase Negative (Negative) Urine RBC 1 (0-5) /hpf Urine WBC 2 (0-5) /hpf Ur Squamous Epith Cells 1 (0-4) /hpf Coronavirus (PCR) (Not Detectd) Influenza Type A RNA (Not Detectd) Influenza Type B (PCR) (Not Detectd) 11/27/21 11/27/21 11/27/21 Range/Units 09:11 09:11 09:11 WBC (3.8-10.6) k/uL RBC (4.30-5.90) m/uL Hgb (13.0-17.5) gm/dL Hct (39.0-53.0) % MCV (80.0-100.0) fL MCH (25.0-35.0) pg MCHC (31.0-37.0) g/dL RDW (11.5-15.5) % Plt Count (150-450) k/uL MPV Neutrophils % % Lymphocytes % % Monocytes % % Eosinophils % % Basophils % % Neutrophils # (1.3-7.7) k/uL Lymphocytes # (1.0-4.8) k/uL Monocytes # (0-1.0) k/uL Eosinophils # (0-0.7) k/uL Basophils # (0-0.2) k/uL Manual Slide Review Anisocytosis (manual) Macrocytosis Sodium (137-145) mmol/L Potassium (3.5-5.1) mmol/L Chloride (98-107) mmol/L Carbon Dioxide (22-30) mmol/L Anion Gap mmol/L BUN (9-20) mg/dL Creatinine (0.66-1.25) mg/dL Est GFR (CKD-EPI)AfAm (>60 ml/min/1.73 sqM) Est GFR (CKD-EPI)NonAf (>60 ml/min/1.73 sqM) Glucose (74-99) mg/dL Calcium (8.4-10.2) mg/dL Total Bilirubin (0.2-1.3) mg/dL AST (17-59) U/L ALT (4-49) U/L Alkaline Phosphatase (38-126) U/L NT-Pro-B Natriuret Pep 320 pg/mL Total Protein (6.3-8.2) g/dL Albumin (3.5-5.0) g/dL Urine Color Urine Appearance (Clear) Urine pH (5.0-8.0) Ur Specific [place] (1.001-1.035) Urine Protein (Negative) Urine Glucose (UA) (Negative) Urine Ketones (Negative) Urine Blood (Negative) Urine Nitrite (Negative) Urine Bilirubin (Negative) Urine Urobilinogen (<2.0) mg/dL Ur Leukocyte Esterase (Negative) Urine RBC (0-5) /hpf Urine WBC (0-5) /hpf Ur Squamous Epith Cells (0-4) /hpf Coronavirus (PCR) Not Detected (Not Detectd) Influenza Type A RNA Not Detected (Not Detectd) Influenza Type B (PCR) Not Detected (Not Detectd) Disposition Clinical Impression: CHF exacerbation, Pneumonia, Tachypnea, Thrombocytopenia, Fever Disposition: ADMITTED IP TO THIS HOSP Condition: Fair Is patient prescribed a controlled substance at d/c from ED?: No Time of Disposition: 11:17
[2021-11-27 09:26] LABS: Basophils % (A) 0 %; Eosinophils # (A) 0.1 k/uL (0-0.7); Eosinophils % (A) 2 %; HCT 40.3 % (39.0-53.0); HGB 13.3 gm/dL (13.0-17.5); Lymphocytes # (A) 0.7 k/uL (1.0-4.8); Lymphocytes % (A) 11 %; MCH 32.6 pg (25.0-35.0); MCV 98.9 fL (80.0-100.0); Macrocytosis Slight; Mean Platelet Volume 8.3; Monocytes # (A) 0.3 k/uL (0-1.0); Monocytes % (A) 5 %; Neutrophils # (A) 5.2 k/uL (1.3-7.7); Neutrophils % (A) 80 %; RBC 4.08 m/uL (4.30-5.90); RDW 15.5 % (11.5-15.5); WBC 6.5 k/uL (3.8-10.6)
[2021-11-27 09:34] LABS: Appearance,Urine Clear (Clear); Bilirubin,Urine Negative (Negative); Blood,Urine Negative (Negative); Color,Urine Yellow; Glucose,Urine (UA) 3+ (Negative); Ketones,Urine 1+ (Negative); Leukocyte Esterase,Urine Negative (Negative); Nitrite,Urine Negative (Negative); PH, Urine 6.5 (5.0-8.0); Protein,Urine 1+ (Negative); RBC,Urine 1 /hpf (0-5); Specific Gravity,Urine 1.018 (1.001-1.035); Squamous Epithelial Cell,Urine 1 /hpf (0-4); WBC,Urine 2 /hpf (0-5)
[2021-11-27 09:41] LABS: ALT 25 U/L (4-49); AST 37 U/L (17-59); African American GFR (CKD) >90 (>60 ml/min/1.73 sqM); Albumin 4.2 g/dL (3.5-5.0); Alkaline Phosphatase 130 U/L (38-126); Anion Gap 11 mmol/L; Blood Urea Nitrogen 11 mg/dL (9-20); Calcium 9.3 mg/dL (8.4-10.2); Carbon Dioxide 22 mmol/L (22-30); Chloride 106 mmol/L (98-107); Glucose 204 mg/dL (74-99); Non-African American GFR(CKD) 89 (>60 ml/min/1.73 sqM); Potassium 4.5 mmol/L (3.5-5.1); Sodium 139 mmol/L (137-145); Total Bilirubin 2.7 mg/dL (0.2-1.3); Total Protein 7.4 g/dL (6.3-8.2)
--- NOTE | 2021-11-27 09:51 | XR ---
EXAMINATION TYPE: XR chest 2V DATE OF EXAM: 11/27/2021 COMPARISON: Chest x-ray August 24, 2020. CTA chest July 17, 2021. HISTORY: Difficulty in breathing. History of heart attacks with coronary stents. TECHNIQUE: Frontal and lateral views of the chest are obtained. FINDINGS: Metallic hardware from right shoulder surgery is partially imaged. Metallic anchor left hum eral head is noted. Persistent cardiomegaly with central vascular congestion along with left lower brandon ng opacity. No pleural effusion or pneumothorax seen bilaterally. IMPRESSION: Cardiomegaly with central vascular congestion, correlate for CHF exacerbation. In additi on more focal acute infiltrate left lower lung noted. Correlate for infection or pneumonia.
[2021-11-27] MEDS ORDERED: AZITHROMYCIN 500 MG in SODIUM CHLORIDE 0.9% 250 ML IVPB STA (10:21)
[2021-11-27] MEDS ORDERED: cefTRIAXone IN SWFI 1,000 MG/10 ML SYRINGE IVP STA (10:21)
[2021-11-27 10:43] LABS: Platelet Count 76 k/uL (150-450)
[2021-11-27 10:44] LABS: Anisocytosis (M) Present
[2021-11-27] MEDS ORDERED: FUROSEMIDE 10 MG/ML 4 ML VIAL IV STA (10:57)
[2021-11-27] MEDS ORDERED: PNEUMONIA PROTOCOL UTILIZED 1 EACH MISC PO PRN (11:18)
[2021-11-27 12:06] LABS: Glucose,Whole Blood 159 mg/dL (75-99)
[2021-11-27] MEDS: INSULIN ASPART (NovoLOG) 100 UNIT/ML VIAL SQ SCH ×3 (12:15→21:49)
[2021-11-27] MEDS ORDERED: ACETAMINOPHEN TAB 325 MG TAB PO PRN (12:56)
[2021-11-27] MEDS ORDERED: NALOXONE 0.4 MG/ML 1 ML VIAL IV PRN (12:56)
[2021-11-27] MEDS ORDERED: ONDANSETRON 4 MG/2 ML VIAL IVP PRN (12:56)
[2021-11-27] MEDS ORDERED: NITROGLYCERIN SL TABS 0.4 MG TAB SUBLINGUAL PRN (12:58)
--- NOTE | 2021-11-27 13:03 | P.HPIM ---
History of Present Illness H&P Date: 11/27/21 Chief Complaint: sob s 76-year-old male past medical history CHF, CAD with 6 stents in the past, COPD not on home O2, last time smoked was 20 years ago presents to the emergency department with lethargy, fever, cough, shortness of breath, vomiting x1 day. Patient states he received his booster COVID-19 vaccine last Friday without any complications. Patient states he vomited one time this morning but states it was just bile. The cough is productive of clear phlegm. He denies any chest pain except with coughing, headache, abdominal pain, change in vision. In the emergency department was found to have a fever of 102, he was diaphoretic on exam. However he was not hypoxic. He did not require any oxygen supplementation. Labs were pretty much unremarkable, he tested negative for influenza and Covid. Chest x-ray revealed changes consistent with congestive heart failure as well as left lower lobe pneumonia. Due to his other comorbidities and the fever he was admitted to the hospital for further treatment. Review of Systems Complete review of system performed, pertinent positives per HPI, otherwise negative Past Medical History Past Medical History: Coronary Artery Disease (CAD), Chest Pain / Angina, Heart Failure, COPD, Diabetes Mellitus, GERD/Reflux, Hyperlipidemia, Hypertension, Myocardial Infarction (CO), Pneumonia, Supraventricular Tachycardia (SVT), Vascular Disorder Additional Past Medical History / Comment(s): Ischemic cardiomyopathy, nonsustained ventriclar arrhythmia, systolic heart failure, CO x 2 in 2001 and 1994, thrombocytopenia, cellulitis 2ndary to local trauma L patella, kidney stones which pt believes he passed, gout bilateral feet/ toes, occasional bilateral tinnitis, past 3-4 years intermittent bilateral leg pain but pt states he now takes quinine when this occurs and has relief of pain. 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 Past Anesthesia/Blood Transfusion Reactions: No Reported Reaction Additional Past Anesthesia/Blood Transfusion Reaction / Comment(s): never had a blood tranfusion Date of Last Stent Placement:: 02/05/19 Past Psychological History: No Psychological Hx Reported Smoking Status: Former smoker Past Alcohol Use History: Occasional Past Drug Use History: None Reported - Past Family History Father History Unknown: Yes Additional Family Medical History / Comment(s): Pt does not know his father's history. His parents were when he was 6 yrs old. Mother History Unknown: Yes Family Medical History: Cancer Additional Family Medical History / Comment(s): Pt states mother had some form of cancer which she from at the age of 77yrs. Medications and Allergies Home Medications Medication Instructions Recorded Confirmed Type metFORMIN HCL [Glucophage] 1,000 mg PO BID 06/07/14 11/27/21 History Ferrous Sulfate [Iron (65 MG 325 mg PO DAILY 03/07/16 11/27/21 History Elemental)] Insulin NPH Hum/Reg Insulin Hm 20 unit SQ AC-BRKFST #0 07/29/17 11/27/21 Rx [NovoLIN 70-30 100 UNIT/ML VIAL] Magnesium Oxide [Mag-Ox] 250 mg PO DAILY 07/11/19 11/27/21 History Atorvastatin [Lipitor] 80 mg PO DAILY #30 tab 08/26/20 11/27/21 Rx Nitroglycerin Sl Tabs [Nitrostat] 0.4 mg SUBLINGUAL Q5M PRN 07/17/21 11/27/21 History allopurinoL [Zyloprim] 100 mg PO DAILY 07/17/21 11/27/21 History Lisinopril [Prinivil] 2.5 mg PO DAILY 30 Days tab 07/20/21 11/27/21 Rx Carvedilol [Coreg] 12.5 mg PO BID 11/27/21 11/27/21 History Allergies Allergy/AdvReac Type Severity Reaction Status Date / Time No Known Allergies Allergy Verified 11/27/21 12:07 Physical Exam Vitals: Vital Signs Temp Pulse Resp BP Pulse Ox 11/27/21 10:13 100.9 F H 92 26 H 120/66 94 L 11/27/21 09:16 96 20 130/71 95 11/27/21 08:42 102.7 F H 93 24 137/65 95 Intake and Output 11/26/21 11/27/2122 22:59 06:59 14:59 Other: Weight 117.027 kg Constitutional: Diaphoretic, conversant, pleasant, no acute distress Eyes:Anicteric sclerae, moist conjunctiva, no lid-lag, PERRLA, ENMT: Oropharynx clear, no erythema, exudates Neck: Supple, FROM, no masses, or JVD, No carotid bruits, No thyromegaly Lungs: Diminished breath sounds bilaterally. Clear to percussion, Normal respiratory effort, no accessory muscle use Cardiovascular: Heart regular in rate and rhythm, No murmurs, gallops, or rubs, has chronic left lower extremity edema, known to patient. Abdominal: Soft, Nontender, no guarding, rebound or rigidity, Normoactive bowel sounds, No hepatomegaly, No splenomegaly, No palpable mass Skin: Normal temperature, tone, texture, turgor, no induration, No subcutaneous nodules, No rash, lesions, No ulcers Extremities: No digital cyanosis, No clubbing, Pedal pulses intact and symmetrical, Radial pulses intact and symmetrical, No calf tenderness Psychiatric: Alert and oriented to person, place and time, appropriate affect, intact judgement Neuro: Muscles Strength 5/5 in all 4 extremities, Sensation to light touch grossly present throughout, Cranial nerves II-XII grossly intact, no focal sensory deficits Results CBC & Chem 7: 11/27/21 09:11 11/27/21 09:11 Labs: Abnormal Lab Results - Last 24 Hours (Table) 11/27/21 11/27/21 11/27/21 Range/Units 09:11 09:11 09:11 RBC 4.08 L (4.30-5.90) m/uL Plt Count 76 L (150-450) k/uL Lymphocytes # 0.7 L (1.0-4.8) k/uL Glucose 204 H (74-99) mg/dL POC Glucose (mg/dL) (75-99) mg/dL Plasma Lactic Acid Evgeny (0.7-2.0) mmol/L Total Bilirubin 2.7 H (0.2-1.3) mg/dL Alkaline Phosphatase 130 H (38-126) U/L Urine Protein 1+ H (Negative) Urine Glucose (UA) 3+ H (Negative) Urine Ketones 1+ H (Negative) 11/27/21 11/27/21 Range/Units 11:20 12:04 RBC (4.30-5.90) m/uL Plt Count (150-450) k/uL Lymphocytes # (1.0-4.8) k/uL Glucose (74-99) mg/dL POC Glucose (mg/dL) 159 H (75-99) mg/dL Plasma Lactic Acid Evgeny 2.4 H* (0.7-2.0) mmol/L Total Bilirubin (0.2-1.3) mg/dL Alkaline Phosphatase (38-126) U/L Urine Protein (Negative) Urine Glucose (UA) (Negative) Urine Ketones (Negative) Assessment and Plan Plan: Community-acquired pneumonia Due to comorbidities he will be treated with antibiotics ceftriaxone and azithromycin. Blood cultures Monitor O2 saturations. Tylenol as needed for fever Diabetes type 2 We'll start sliding scale insulin with blood sugar checks every before meals and at bedtime Patient takes 20 units of NPH at home, would hold for now due to vomiting and monitor food intake Check A1c Chronic congestive heart failure He does not seem to be an exacerbation at this point. ER consulted cardio, awaiting eval Resume coreg, statin, lisinopril. COPD Stable Will order nebs Hyperlipidemia continue statin and bp meds as above Admit to inpatient, expected length of stay more than 2 midnights.
[2021-11-27] MEDS ORDERED: IPRATROPIUM-ALBUTEROL 3 ML NEB INHALATION PRN (13:06)
[2021-11-27 17:16] LABS: Glucose,Whole Blood 189 mg/dL (75-99)
[2021-11-27] MEDS: carvediloL 12.5 MG TAB PO SCH (17:40)
[2021-11-27] MEDS ORDERED: INSULIN DETEMIR (LEVEMIR) 100 UNIT/ML SYR SQ SCH (21:00)
[2021-11-27 21:48] LABS: Glucose,Whole Blood 178 mg/dL (75-99)
[2021-11-28 06:52] LABS: Basophils % (A) 0 %; Eosinophils # (A) 0.1 k/uL (0-0.7); Eosinophils % (A) 1 %; HCT 35.1 % (39.0-53.0); HGB 11.5 gm/dL (13.0-17.5); Hypochromasia Slight; Lymphocytes # (A) 0.9 k/uL (1.0-4.8); Lymphocytes % (A) 16 %; MCH 32.9 pg (25.0-35.0); MCHC 32.8 g/dL (31.0-37.0); MCV 100.4 fL (80.0-100.0); Macrocytosis Slight; Mean Platelet Volume 8.1; Monocytes # (A) 0.4 k/uL (0-1.0); Monocytes % (A) 7 %; Neutrophils # (A) 4.1 k/uL (1.3-7.7); Neutrophils % (A) 74 %; RBC 3.49 m/uL (4.30-5.90); RDW 15.7 % (11.5-15.5); WBC 5.5 k/uL (3.8-10.6)
[2021-11-28 07:12] LABS: Platelet Count 65 k/uL (150-450)
[2021-11-28 07:15] LABS: Glucose,Whole Blood 157 mg/dL (75-99)
[2021-11-28] MEDS: carvediloL 12.5 MG TAB PO SCH ×2 (08:56→17:52)
[2021-11-28] MEDS: MAGNESIUM OXIDE 400 MG TAB PO SCH (08:56)
[2021-11-28] MEDS: ATORVASTATIN 80 MG TAB PO SCH (08:56)
[2021-11-28] MEDS: allopurinoL 100 MG TAB PO SCH (08:56)
[2021-11-28] MEDS: FERROUS SULFATE 325 MG TAB PO SCH (08:56)
[2021-11-28] MEDS: AZITHROMYCIN 500 MG in SODIUM CHLORIDE 0.9% 250 ML IVPB SCH (08:56)
[2021-11-28] MEDS: INSULIN ASPART (NovoLOG) 100 UNIT/ML VIAL SQ SCH ×4 (08:56→21:28)
[2021-11-28 09:27] LABS: African American GFR (CKD) 85.6 (60.0-200.0); Albumin 3.8 g/dL (3.8-4.9); Albumin/Globulin Ratio 1.65 (1.60-3.17); Anion Gap 13.2 mmol/L (10.00-18.00); BUN/Creat Ratio 11.8 Ratio (12.00-20.00); Blood Urea Nitrogen 11.8 mg/dL (9.0-27.0); Calcium 9.2 mg/dL (8.7-10.3); Carbon Dioxide 23.8 mmol/L (20.0-27.5); Globulin 2.3 g/dL (1.6-3.3); Magnesium 1.7 mg/dL (1.5-2.4); Non-African American GFR(CKD) 73.8 (60.0-200.0); Phosphorus 2.7 mg/dL (2.4-5.1); Potassium 4.2 mmol/L (3.5-5.5); Total Bilirubin 1.5 mg/dL (0.30-1.20); Total Protein 6.1 g/dL (6.2-8.2)
--- NOTE | 2021-11-28 09:40 | XR ---
EXAMINATION TYPE: XR chest 2V DATE OF EXAM: 11/28/2021 COMPARISON: 11/27/2021 INDICATION: Pneumonia, short of breath TECHNIQUE: Frontal and lateral views of the chest are obtained. FINDINGS: The heart size is mildly prominent. The pulmonary vasculature is normal. Mild bibasilar infiltrates are present. This is nonspecific. Consider atelectasis. Developing pneumon ia should be considered. Follow-up is recommended. IMPRESSION: 1. Mild developing bibasilar infiltrates. Correlate for atelectasis. Follow-up is recommended
--- NOTE | 2021-11-28 09:56 | P.CRDCN ---
History of Present Illness History of present illness: This is a 74-year old male with a past medical history significant for coronary artery disease s/p multiple PCI to RCA, diabetes mellitus, hypertension, hyperlipidemia, COPD, ischemic cardiomyopathy, systolic heart failure, former tobacco use quit in 2002. Patient follows in the office with Dr. Morrow. We have been asked to see the patient in consultation for congestive heart failure. Patient presents to the emergency department with complaints of cough, shortness of breath, nausea, and some mild diaphoresis. He states for a couple days he has not been feeling well. He denies any chest pain, lightheadedness, dizziness, symptoms of orthopnea or PND, or worsening lower extremity edema. On admission, patient febrile temp 102F. Chest xray revealed cardiomegaly and focal acute infiltrate in the left lower lung. DIAGNOSTICS: EKG reveals sinus rhythm HR 97, PVC, right bundle branch block, left axis deviation, poor R wave progression. Prior EKG with similar findings Laboratory data: Pro BNP 320, Troponin negative, WBC 5.5, hemoglobin 11.5, platelets 65, sodium 141, potassium 4.2, BUN 11.8, serum creatinine 1.0, lactate 2.9, repeat 2.0, magnesium 1.7, total bilirubin 1.5, Covid negatige, Influenza A and B negative Most recent cardiac catheterization 08/2020- Patent stent in proximal RCA, Mild to moderate in-stent restenosis nonobstructive disease involving the distal RCA, mild disease involving the left coronary system Most recent echocardiogram 06/2021 EF 40-45%, inferior hypokinesis, mild mitral regurgitation and mild tricuspid regurgitation Current home cardiac medications include when necessary sublingual nitro, lisinopril 2.5 mg daily, magnesium oxide 250 mg daily, Imdur 30 mg daily, carvedilol 12.5 mg twice a day, Lasix 20 mg daily, atorvastatin 80 mg daily, aspirin 81 mg daily REVIEW OF SYSTEMS: CONSTITUTIONAL: Denies fever or chills HEENT: Denies blurred vision, vision changes, or eye pain. Denies hemoptysis CARDIOVASCULAR: Denies chest pain. Denies orthopnea, PND or palpitations RESPIRATORY: Report cough and shortness of breath. GASTROINTESTINAL: Denies abdominal pain. Denies nausea or vomiting. HEMATOLOGIC: Denies bleeding disorders. GENITOURINARY: Denies any blood in urine. SKIN: Denies pruitis. Denies rash. PHYSICAL EXAM: VITAL SIGNS: Reviewed. GENERAL: Well-developed in no acute distress. HEENT: Head is normocephalic. Pupils are equal, round. Sclerae anicteric. Mucous membranes of the mouth are moist. Neck supple. No JVD LUNGS: Respirations even and unlabored. Lungs diminished. HEART: Regular rate and rhythm. S1 and S2 heard. Systolic murmur noted at apex ABDOMEN: Soft. Nondistended. Nontender. EXTREMITIES: Normal range of motion. No clubbing or cyanosis. non-pitting edema noted bilaterally NEUROLOGIC: Awake, arousable and alert. Oriented x 3. ASSESSMENT: Cough, Fever Left lower lobe pneumonia Chronic systolic congestive heart failure, euvolemic on exam History of coronary artery disease s/p PCI RCA Diabetes mellitus, type II Hypertriglyceridemia Hyperlipidemia Hypertension Ischemic cardiomyopathy COPD Obesity: BMI 40 Thrombocytopenia PLAN: From a cardiology perspective, patient does not appear to be in acute congestive heart failure at this time, appears euvolemic on exam. Symptoms likely related to pneumonia. We will continue current home cardiac medications. Recommend pat ient follow up with Dr. Morrow in the office. Patient has a new appointment on 12/04/2021 at 1:30pm. Nurse practitioner note has been reviewed by physician. Signing provider agrees with the documented findings, assessment, and plan of care. Past Medical History Past Medical History: Coronary Artery Disease (CAD), Chest Pain / Angina, Heart Failure, COPD, Diabetes Mellitus, GERD/Reflux, Hyperlipidemia, Hypertension, Myocardial Infarction (NM), Pneumonia, Supraventricular Tachycardia (SVT), Vascular Disorder Additional Past Medical History / Comment(s): Ischemic cardiomyopathy, nonsustained ventriclar arrhythmia, systolic heart failure, [place] x 2 in 2001 and 1994, thrombocytopenia, cellulitis 2ndary to local trauma L patella, kidney stones which pt believes he passed, gout bilateral feet/ toes, occasional bilateral tinnitis, past 3-4 years intermittent bilateral leg pain but pt states he now takes quinine when this occurs and has relief of pain. 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 Past Anesthesia/Blood Transfusion Reactions: No Reported Reaction Additional Past Anesthesia/Blood Transfusion Reaction / Comment(s): never had a blood tranfusion Date of Last Stent Placement:: 02/05/19 Past Psychological History: No Psychological Hx Reported Smoking Status: Former smoker Past Alcohol Use History: Occasional Past Drug Use History: None Reported - Past Family History Father History Unknown: Yes Additional Family Medical History / Comment(s): Pt does not know his father's history. His parents were when he was 6 yrs old. Mother History Unknown: Yes Family Medical History: Cancer Additional Family Medical History / Comment(s): Pt states mother had some form of cancer which she from at the age of 77yrs. Medications and Allergies Home Medications Medication Instructions Recorded Confirmed Type metFORMIN HCL [Glucophage] 1,000 mg PO BID 06/07/14 11/27/21 History Ferrous Sulfate [Iron (65 MG 325 mg PO DAILY 03/07/16 11/27/21 History Elemental)] Insulin NPH Hum/Reg Insulin Hm 20 unit SQ AC-BRKFST #0 07/29/17 11/27/21 Rx [NovoLIN 70-30 100 UNIT/ML VIAL] Magnesium Oxide [Mag-Ox] 250 mg PO DAILY 07/11/19 11/27/21 History Atorvastatin [Lipitor] 80 mg PO DAILY #30 tab 08/26/20 11/27/21 Rx Nitroglycerin Sl Tabs [Nitrostat] 0.4 mg SUBLINGUAL Q5M PRN 07/17/21 11/27/21 History allopurinoL [Zyloprim] 100 mg PO DAILY 07/17/21 11/27/21 History Lisinopril [Prinivil] 2.5 mg PO DAILY 30 Days tab 07/20/21 11/27/21 Rx Carvedilol [Coreg] 12.5 mg PO BID 11/27/21 11/27/21 History Allergies Allergy/AdvReac Type Severity Reaction Status Date / Time No Known Allergies Allergy Verified 11/27/21 12:07 Physical Exam Vitals: Vital Signs Temp Pulse Resp BP Pulse Ox 11/27/21 10:13 100.9 F H 92 26 H 120/66 94 L 11/27/21 09:16 96 20 130/71 95 11/27/21 08:42 102.7 F H 93 24 137/65 95 Intake and Output 11/26/21 11/27/21 11/27/21 22:59 06:59 14:59 Other: Weight 117.027 kg Results 11/28/21 06:21 11/28/21 06:21 Cardiac Enzymes 11/27/21 11/27/21 Range/Units 09:11 11:20 AST 37 (17-59) U/L Troponin I 0.015 (0.000-0.034) ng/mL CBC 11/27/21 Range/Units 09:11 WBC 6.5 (3.8-10.6) k/uL RBC 4.08 L (4.30-5.90) m/uL Hgb 13.3 (13.0-17.5) gm/dL Hct 40.3 (39.0-53.0) % Plt Count 76 L (150-450) k/uL Comprehensive Metabolic Panel 11/27/21 Range/Units 09:11 Sodium 139 (137-145) mmol/L Potassium 4.5 (3.5-5.1) mmol/L Chloride 106 (98-107) mmol/L Carbon Dioxide 22 (22-30) mmol/L BUN 11 (9-20) mg/dL Creatinine 0.78 (0.66-1.25) mg/dL Glucose 204 H (74-99) mg/dL Calcium 9.3 (8.4-10.2) mg/dL AST 37 (17-59) U/L ALT 25 (4-49) U/L Alkaline Phosphatase 130 H (38-126) U/L Total Protein 7.4 (6.3-8.2) g/dL Albumin 4.2 (3.5-5.0) g/dL Current Medications Generic Name Dose Route Start Last Admin Trade Name Freq PRN Reason Stop Dose Admin Acetaminophen 650 mg 11/27/21 12:56 Acetaminophen Tab 325 Mg Tab PO Q6HR PRN Mild Pain or Fever > 100.5 Albuterol/Ipratropium 3 ml 11/27/21 13:06 Ipratropium-Albuterol 3 Ml Neb INHALATION RT-Q2H PRN Shortness Of Breath Or Wheezing Allopurinol 100 mg 11/28/21 09:00 Allopurinol 100 Mg Tab PO DAILY [facility] Atorvastatin Calcium 80 mg 11/28/21 09:00 Atorvastatin 80 Mg Tab PO DAILY [facility] Carvedilol 12.5 mg 11/27/21 17:30 Carvedilol 12.5 Mg Tab PO BID-W/MEALS [facility] Ferrous Sulfate 325 mg 11/28/21 09:00 Ferrous Sulfate 325 Mg Tab PO DAILY [facility] Azithromycin 500 mg/ Sodium 250 mls @ 250 mls/hr 11/28/21 09:00 Chloride IVPB 12/01/21 09:59 DAILY [facility] Ceftriaxone Sodium 2 gm/ 50 mls @ 100 mls/hr 11/27/21 21:00 Sodium Chloride IVPB 11/30/21 21:29 Q24H [facility] Insulin Aspart 0 unit 11/27/21 12:30 11/27/21 12:15 Insulin Aspart (Novolog) 100 Unit/Ml Vial SQ 2 unit ACHS [facility] Administration Protocol Lisinopril 2.5 mg 11/28/21 09:00 Lisinopril 2.5 Mg Tab PO DAILY [facility] Magnesium Oxide 400 mg 11/28/21 09:00 Magnesium Oxide 400 Mg Tab PO DAILY [facility] Miscellaneous Information 1 each 11/27/21 11:18 Pneumonia Protocol Utilized 1 Each Misc PO ONCE PRN Per Protocol Naloxone HCl 0.2 mg 11/27/21 12:56 Naloxone 0.4 Mg/Ml 1 Ml Vial IV Q2M PRN Opioid Reversal Nitroglycerin 0.4 mg 11/27/21 12:58 Nitroglycerin Sl Tabs 0.4 Mg Tab SUBLINGUAL Q5M PRN Chest Pain Ondansetron HCl 4 mg 11/27/21 12:56 Ondansetron 4 Mg/2 Ml Vial IVP Q8HR PRN Nausea And Vomiting Intake and Output 11/26/21 11/27/21 11/27/21 22:59 06:59 14:59 Other: Weight 117.027 kg Patient Weight 11/28/21 06:59 Weight 117.027 kg 11/27/21 09:11 11/27/21 09:11
--- NOTE | 2021-11-28 11:08 | P.PN ---
Subjective Progress Note Date: 11/28/21 Principal diagnosis: sob Feeling better today, he still has cough with pleuritic chest pain. Breathing is improved. No fevers. Objective - Vital Signs Vital signs: Vital Signs Temp 98.4 F 11/28/21 04:45 Pulse 79 11/28/21 04:45 Resp 20 11/28/21 04:45 BP 113/62 11/28/21 06:00 Pulse Ox 93 L 11/28/21 04:45 Intake & Output 11/27/21 11/28/21 11/28/21 18:59 06:59 18:59 Intake Total 110 Balance 110 Weight 117.027 kg Intake: IV 10 Invasive Line 1 10 Oral 100 Other: Voiding Method Urinal # Voids 1 - Exam Constitutional: No acute distress, conversant, pleasant Eyes:Anicteric sclerae, moist conjunctiva, no lid-lag, PERRLA, ENMT: Oropharynx clear, no erythema, exudates Neck: Supple, FROM, no masses, or JVD, No carotid bruits, No thyromegaly Lungs: Clear to auscultation, Clear to percussion, Normal respiratory effort, no accessory muscle use Cardiovascular: Heart regular in rate and rhythm, No murmurs, gallops, or rubs, No peripheral edema Abdominal: Soft, Nontender, no guarding, rebound or rigidity, Normoactive bowel sounds, No hepatomegaly, No splenomegaly, No palpable mass Skin: Normal temperature, tone, texture, turgor, no induration, No subcutaneous nodules, No rash, lesions, No ulcers Extremities: No digital cyanosis, No clubbing, Pedal pulses intact and symmetrical, Radial pulses intact and symmetrical, No calf tenderness Psychiatric: Alert and oriented to person, place and time, appropriate affect, intact judgement Neuro: Muscles Strength 5/5 in all 4 extremities, Sensation to light touch grossly present throughout, Cranial nerves II-XII grossly intact, no focal se nsory deficits - Labs CBC & Chem 7: 11/28/21 06:21 11/28/21 06:21 Labs: Abnormal Lab Results - Last 24 Hours (Table) 11/27/21 11/27/21 11/27/21 Range/Units 09:11 11:20 12:04 RBC (4.30-5.90) m/uL Hgb (13.0-17.5) gm/dL Hct (39.0-53.0) % MCV (80.0-100.0) fL RDW (11.5-15.5) % Plt Count (150-450) k/uL Lymphocytes # (1.0-4.8) k/uL BUN/Creatinine Ratio (12.00-20.00) Ratio Glucose (70-110) mg/dL POC Glucose (mg/dL) 159 H (75-99) mg/dL Hemoglobin A1c 6.7 H (4.0-6.0) % Plasma Lactic Acid Evgeny 2.4 H* (0.7-2.0) mmol/L Total Bilirubin (0.30-1.20) mg/dL Total Protein (6.2-8.2) g/dL 11/27/21 11/27/21 11/27/21 Range/Units 14:19 17:15 19:32 RBC (4.30-5.90) m/uL Hgb (13.0-17.5) gm/dL Hct (39.0-53.0) % MCV (80.0-100.0) fL RDW (11.5-15.5) % Plt Count (150-450) k/uL Lymphocytes # (1.0-4.8) k/uL BUN/Creatinine Ratio (12.00-20.00) Ratio Glucose (70-110) mg/dL POC Glucose (mg/dL) 189 H (75-99) mg/dL Hemoglobin A1c (4.0-6.0) % Plasma Lactic Acid Evgeny 2.2 H* 2.9 H* (0.7-2.0) mmol/L Total Bilirubin (0.30-1.20) mg/dL Total Protein (6.2-8.2) g/dL 11/27/21 11/28/21 11/28/21 Range/Units 21:47 06:21 06:21 RBC 3.49 L (4.30-5.90) m/uL Hgb 11.5 L (13.0-17.5) gm/dL Hct 35.1 L (39.0-53.0) % MCV 100.4 H (80.0-100.0) fL RDW 15.7 H (11.5-15.5) % Plt Count 65 L (150-450) k/uL Lymphocytes # 0.9 L (1.0-4.8) k/uL BUN/Creatinine Ratio 11.80 L (12.00-20.00) Ratio Glucose 170 H (70-110) mg/dL POC Glucose (mg/dL) 178 H (75-99) mg/dL Hemoglobin A1c (4.0-6.0) % Plasma Lactic Acid Evgeny (0.7-2.0) mmol/L Total Bilirubin 1.50 H (0.30-1.20) mg/dL Total Protein 6.1 L (6.2-8.2) g/dL 11/28/21 Range/Units 07:14 RBC (4.30-5.90) m/uL Hgb (13.0-17.5) gm/dL Hct (39.0-53.0) % MCV (80.0-100.0) fL RDW (11.5-15.5) % Plt Count (150-450) k/uL Lymphocytes # (1.0-4.8) k/uL BUN/Creatinine Ratio (12.00-20.00) Ratio Glucose (70-110) mg/dL POC Glucose (mg/dL) 157 H (75-99) mg/dL Hemoglobin A1c (4.0-6.0) % Plasma Lactic Acid Evgeny (0.7-2.0) mmol/L Total Bilirubin (0.30-1.20) mg/dL Total Protein (6.2-8.2) g/dL Assessment and Plan Plan: Community-acquired pneumonia Continue ceftriaxone and azithromycin. Follow blood cultures Monitor O2 saturations. Tylenol as needed for fever Diabetes type 2 We'll start sliding scale insulin with blood sugar checks every before meals and at bedtime Patient takes 20 units of NPH at home, would hold for now due to vomiting and monitor food intake A1c 6.7 Chronic congestive heart failure He does not seem to be an exacerbation at this point. Cardio evaluated patient, he is not in CHF Resume coreg, statin, lisinopril. COPD Stable Continue prn nebs Hyperlipidemia continue statin and bp meds as above Anticipated discharge: 1-2 days Dispo: home
[2021-11-28 11:43] LABS: Glucose,Whole Blood 267 mg/dL (75-99)
[2021-11-28] MEDS: INSULIN DETEMIR (LEVEMIR) 100 UNIT/ML SYR SQ SCH (12:24)
[2021-11-28 16:59] LABS: Glucose,Whole Blood 178 mg/dL (75-99)
[2021-11-28 21:14] LABS: Glucose,Whole Blood 176 mg/dL (75-99)
[2021-11-29 07:18] LABS: Glucose,Whole Blood 166 mg/dL (75-99)
[2021-11-29] MEDS: INSULIN ASPART (NovoLOG) 100 UNIT/ML VIAL SQ SCH ×2 (09:42→12:39)
[2021-11-29] MEDS: FERROUS SULFATE 325 MG TAB PO SCH (09:43)
[2021-11-29] MEDS: carvediloL 12.5 MG TAB PO SCH (09:43)
[2021-11-29] MEDS: ATORVASTATIN 80 MG TAB PO SCH (09:43)
[2021-11-29] MEDS: allopurinoL 100 MG TAB PO SCH (09:43)
[2021-11-29] MEDS: MAGNESIUM OXIDE 400 MG TAB PO SCH (09:43)
[2021-11-29] MEDS: AZITHROMYCIN 500 MG in SODIUM CHLORIDE 0.9% 250 ML IVPB SCH (09:44)
[2021-11-29] MEDS: INSULIN DETEMIR (LEVEMIR) 100 UNIT/ML SYR SQ SCH (10:17)
--- NOTE | 2021-11-29 10:49 | P.DS ---
Providers Date of admission: 11/27/21 11:06 Expected date of discharge: 11/29/21 Attending physician: Carey Baldwin MD Consults: 11/27/21 11:18 Consult Physician Routine Consulting Provider: [facility] Consult Reason/Comments: CHF exacerbation Do you want consulting provider notified?: Yes Primary care physician: Carrie Izaguirre [place] [facility] Course: 76-year-old male past medical history CHF, CAD with 6 stents in the past, COPD not on home O2, last time smoked was 20 years ago presents to the emergency department with lethargy, fever, cough, shortness of breath, vomiting x1 day. Patient states he received his booster COVID-19 vaccine last Friday without any complications. Patient states he vomited one time this morning but states it was just bile. The cough is productive of clear phlegm. He denies any chest pain except with coughing, headache, abdominal pain, change in vision. In the emergency department was found to have a fever of 102, he was diaphoretic on exam. However he was not hypoxic. He did not require any oxygen supplementation. Labs were pretty much unremarkable, he tested negative for influenza and Covid. Chest x-ray revealed changes consistent with congestive heart failure as well as left lower lobe pneumonia. Due to his other comorbidities and the fever he was admitted to the hospital for further treatment. Clinically patient did not look in congestive heart failure. His proBNP was within normal limits. He was seen by cardiology who concurred with that. The symptoms were felt to be most likely secondary to community-acquired pneumonia. He was treated with ceftriaxone and azithromycin. Blood cultures were obtained and remained negative. He did not have any recurrent fevers after the initiation of the antibiotics. His symptoms have improved significantly as well. According to nursing he is able to get up and function by himself. He will be discharged home on oral antibiotics. Time for discharge 35 minutes. Patient Condition at Discharge: Fair Plan - Discharge Summary Discharge Rx Participant: No New Discharge Prescriptions: New Levofloxacin [Levaquin] 750 mg PO DAILY 5 Days #5 tab Continue metFORMIN HCL [Glucophage] 1,000 mg PO BID Ferrous Sulfate [Iron (65 MG Elemental)] 325 mg PO DAILY Insulin NPH Hum/Reg Insulin Hm [NovoLIN 70-30 100 UNIT/ML VIAL] 20 unit SQ AC-BRKFST #0 Magnesium Oxide [Mag-Ox] 250 mg PO DAILY Atorvastatin [Lipitor] 80 mg PO DAILY #30 tab allopurinoL [Zyloprim] 100 mg PO DAILY Lisinopril [Prinivil] 2.5 mg PO DAILY 30 Days tab Carvedilol [Coreg] 12.5 mg PO BID Nitroglycerin Sl Tabs [Nitrostat] 0.4 mg SUBLINGUAL Q5M PRN PRN Reason: Chest Pain Discharge Medication List metFORMIN HCL [Glucophage] 1,000 mg PO BID 06/07/14 [History] Ferrous Sulfate [Iron (65 MG Elemental)] 325 mg PO DAILY 03/07/16 [History] Insulin NPH Hum/Reg Insulin Hm [NovoLIN 70-30 100 UNIT/ML VIAL] 20 unit SQ AC- BRKFST #0 07/29/17 [Rx] Magnesium Oxide [Mag-Ox] 250 mg PO DAILY 07/11/19 [History] Atorvastatin [Lipitor] 80 mg PO DAILY #30 tab 08/26/20 [Rx] Nitroglycerin Sl Tabs [Nitrostat] 0.4 mg SUBLINGUAL Q5M PRN 07/17/21 [History] allopurinoL [Zyloprim] 100 mg PO DAILY 07/17/21 [History] Lisinopril [Prinivil] 2.5 mg PO DAILY 30 Days tab 07/20/21 [Rx] Carvedilol [Coreg] 12.5 mg PO BID 11/27/21 [History] Levofloxacin [Levaquin] 750 mg PO DAILY 5 Days #5 tab 11/29/21 [Rx] Follow up Appointment(s)/Referral(s): Ankur Morrow MD [STAFF PHYSICIAN] - 12/04/21 1:30 pm ([address] [place] [address] Location ) Carrie Izaguirre MD [Primary Care Provider] - 1-2 days
[2021-11-29 11:44] VITALS: BP 118/70; PULSE 78; RESP 16; TEMP 98.7
[2021-11-29 12:05] LABS: Glucose,Whole Blood 169 mg/dL (75-99)
== END 2021-11-29 12:45 | disposition home or self-care (01) | DRG 194 ==
LOC: EC 08:35 → 5NMEDONC 11:06
PROVIDERS: ADMIT Internal Medicine; ATTEND Internal Medicine
DX: J18.9 Pneumonia, unspecified organism (principal); I50.22 Chronic systolic (congestive) heart failure; J44.0 Chronic obstructive pulmonary disease with (acute) lower respiratory infection; Z68.41 Body mass index [BMI] 40.0-44.9, adult; D69.6 Thrombocytopenia, unspecified; E11.51 Type 2 diabetes mellitus with diabetic peripheral angiopathy without gangrene; I11.0 Hypertensive heart disease with heart failure; Z79.4 Long term (current) use of insulin; Z20.822 Contact with and (suspected) exposure to COVID-19; E66.9 Obesity, unspecified; E78.5 Hyperlipidemia, unspecified; E78.1 Pure hyperglyceridemia; I25.5 Ischemic cardiomyopathy; I25.2 Old myocardial infarction; M10.9 Gout, unspecified; I25.10 Atherosclerotic heart disease of native coronary artery without angina pectoris; R51.9 Headache, unspecified; K21.9 Gastro-esophageal reflux disease without esophagitis; Z79.84 Long term (current) use of oral hypoglycemic drugs; Z79.899 Other long term (current) drug therapy; Z87.891 Personal history of nicotine dependence; Z87.01 Personal history of pneumonia (recurrent); Z87.442 Personal history of urinary calculi; Z95.5 Presence of coronary angioplasty implant and graft; Z96.653 Presence of artificial knee joint, bilateral; Z87.39 Personal history of other diseases of the musculoskeletal system and connective tissue; Z86.19 Personal history of other infectious and parasitic diseases; Z86.79 Personal history of other diseases of the circulatory system; Z98.890 Other specified postprocedural states; Z80.9 Family history of malignant neoplasm, unspecified
CPT/HCPCS: 36415; 71046; 80053; 81001; 83036; 83605; 83735; 83880; 84100; 84484; 85025; 87040; 87502; 87635; 93005; 94640; 99285

== ENCOUNTER 2022-02-10 14:36 | Observation (INO) | payer MEDICARE ==
[2022-02-10 15:18] LABS: Basophils % (A) 0 %; Eosinophils # (A) 0.1 k/uL (0-0.7); Eosinophils % (A) 2 %; HCT 41.4 % (39.0-53.0); HGB 13.8 gm/dL (13.0-17.5); Lymphocytes # (A) 0.6 k/uL (1.0-4.8); Lymphocytes % (A) 15 %; MCH 33.2 pg (25.0-35.0); MCHC 33.3 g/dL (31.0-37.0); MCV 99.5 fL (80.0-100.0); Mean Platelet Volume 9.2; Monocytes # (A) 0.2 k/uL (0-1.0); Monocytes % (A) 6 %; Neutrophils # (A) 3.3 k/uL (1.3-7.7); Neutrophils % (A) 75 %; RBC 4.16 m/uL (4.30-5.90); RDW 13.6 % (11.5-15.5); WBC 4.3 k/uL (3.8-10.6)
[2022-02-10 15:40] LABS: ALT 30 U/L (4-49); AST 56 U/L (17-59); African American GFR (CKD) >90 (>60 ml/min/1.73 sqM); Albumin 3.6 g/dL (3.5-5.0); Alkaline Phosphatase 98 U/L (38-126); Amylase 52 U/L (30-110); Anion Gap 6 mmol/L; Blood Urea Nitrogen 14 mg/dL (9-20); Calcium 8.2 mg/dL (8.4-10.2); Carbon Dioxide 23 mmol/L (22-30); Chloride 109 mmol/L (98-107); Glucose 197 mg/dL (74-99); Lipase 106 U/L (23-300); Non-African American GFR(CKD) >90 (>60 ml/min/1.73 sqM); Platelet Count 71 k/uL (150-450); Potassium 4.2 mmol/L (3.5-5.1); Sodium 138 mmol/L (137-145); Total Bilirubin 1.3 mg/dL (0.2-1.3); Total Protein 6.5 g/dL (6.3-8.2)
[2022-02-10] MEDS: PANTOPRAZOLE 40 MG/10 ML VIAL IVP SCH (15:55)
[2022-02-10] MEDS ORDERED: ONDANSETRON 4 MG/2 ML VIAL IVP STA (16:00)
--- NOTE | 2022-02-10 16:02 | ED ---
General Adult HPI - General Chief complaint: Abdominal Pain Stated complaint: abd pain, nausea Time Seen by Provider: 02/10/22 14:40 Source: patient, RN notes reviewed, old records reviewed Mode of arrival: EMS Limitations: no limitations - History of Present Illness Initial comments: This is a 76-year-old male who presents emergency department stating that he has a past medical history significant for ulcers. Patient states he is not any medication for. Patient comes in today because he states 4 hours prior to arrival he started having epigastric abdominal pain and became very nauseated. Patient states she vomited up some phlegm but did not vomit up any food and there was no blood in the emesis. Patient denies any lower abdominal pain. Pat ient denies any chest pain difficulty breathing shortness of breath. Patient denies any recent fever chills or cough. - Related Data Home Medications Medication Instructions Recorded Confirmed metFORMIN HCL [Glucophage] 1,000 mg PO BID 06/07/14 02/10/22 Ferrous Sulfate [Iron (65 MG 325 mg PO DAILY 03/07/16 02/10/22 Elemental)] Magnesium Oxide [Mag-Ox] 250 mg PO DAILY 07/11/19 02/10/22 Nitroglycerin Sl Tabs [Nitrostat] 0.4 mg SUBLINGUAL Q5M PRN 07/17/21 02/10/22 allopurinoL [Zyloprim] 100 mg PO DAILY 07/17/21 02/10/22 Carvedilol [Coreg] 12.5 mg PO BID 11/27/21 02/10/22 Aspirin EC [Ecotrin Low Dose] 81 mg PO DAILY 02/10/22 02/10/22 lisinopriL [Zestril] 2.5 mg PO DAILY 02/10/22 02/10/22 Previous Rx's Medication Instructions Recorded Insulin NPH Hum/Reg Insulin Hm 20 unit SQ AC-BRKFST #0 07/29/17 [NovoLIN 70-30 100 UNIT/ML VIAL] Atorvastatin [Lipitor] 80 mg PO DAILY #30 tab 08/26/20 Allergies Allergy/AdvReac Type Severity Reaction Status Date / Time No Known Allergies Allergy Verified 02/10/22 16:26 Review of Systems ROS Statement: Those systems with pertinent positive or pertinent negative responses have been documented in the HPI. ROS Other: All systems not noted in ROS Statement are negative. Past Medical History Past Medical History: Coronary Artery Disease (CAD), Chest Pain / Angina, Heart Failure, COPD, Diabetes Mellitus, GERD/Reflux, Hyperlipidemia, Hypertension, Myocardial Infarction ([place]), Pneumonia, Supraventricular Tachycardia (SVT), Vascular Disorder Additional Past Medical History / Comment(s): Ischemic cardiomyopathy, nonsustained ventriclar arrhythmia, systolic heart failure, [place] x 2 in 2002 and 995, thrombocytopenia, cellulitis 2ndary to local trauma L patella, kidney stones which pt believes he passed, gout bilateral feet/ toes, occasional bilateral tinnitis, past 3-4 years intermittent bilateral leg pain but pt states he now takes quinine when this occurs and has relief of pain. 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 Past Anesthesia/Blood Transfusion Reactions: No Reported Reaction Additional Past Anesthesia/Blood Transfusion Reaction / Comment(s): never had a blood tranfusion Date of Last Stent Placement:: 02/05/19 Past Psychological History: No Psychological Hx Reported Smoking Status: Former smoker Past Alcohol Use History: Occasional Past Drug Use History: None Reported - Past Family History Father History Unknown: Yes Additional Family Medical History / Comment(s): Pt does not know his father's history. His parents were when he was 6 yrs old. Mother History Unknown: Yes Family Medical History: Cancer Additional Family Medical History / Comment(s): Pt states mother had some form of cancer which she from at the age of 77yrs. General Exam - General Exam Comments Initial Comments: GENERAL: Patient is well-developed and well-nourished. Patient is nontoxic and well- hydrated and is in mild distress. ENT: Neck is soft and supple. No significant lymphadenopathy is noted. Oropharynx is clear. Moist mucous membranes. Neck has full range of motion without eliciting any pain. EYES: The sclera were anicteric and conjunctiva were pink and moist. Extraocular movements were intact and pupils were equal round and reactive to light. Eyelids were unremarkable. PULMONARY: Unlabored respirations. Good breath sounds bilaterally. No audible rales rhonchi or wheezing was noted. CARDIOVASCULAR: There is a regular rate and rhythm without any murmurs gallops or rubs. ABDOMEN: Patient is tender in the right upper quadrant SKIN: Skin is clear with no lesions or rashes and otherwise unremarkable. NEUROLOGIC: Patient is alert and oriented x3. Cranial nerves II through XII are grossly intact. Motor and sensory are also intact. Normal speech, volume and content. Symmetrical smile. MUSCULOSKELETAL: Normal extremities with adequate strength and full range of motion. Left leg is bigger than the right leg and he states this is normal. LYMPHATICS: No significant lymphadenopathy is noted PSYCHIATRIC: Normal psychiatric evaluation. Limitations: no limitations Course Vital Signs 02/10/22 14:38 Pulse Rate 65 Respiratory 20 Rate Blood Pressure 155/85 O2 Sat by Pulse 98 Oximetry Medical Decision Making - Medical Decision Making Gallbladder ultrasound showed a distended gallbladder but no gallbladder wall thickening and no pericholecystic fluid. Patient remained tender and I spoke with Dr. Quiroz he agreed to admit the patient admitted the patient I wrote admitting orders I consult the [facility]. I ordered a HIDA scan as well as labs in the morning. EKG shows sinus rhythm with occasional PVC at a rate of 60 bpm WI interval is 205 QRS is 136 QT interval 392 QTC is 409. EKG shows T-wave inversions in 3 and aVF as well as precordial leads - Lab Data Result diagrams: 02/10/22 15:07 02/10/22 15:07 Lab Results 02/10/22 02/10/22 02/10/22 Range/Units 15:00 15:07 15:07 WBC 4.3 (3.8-10.6) k/uL RBC 4.16 L (4.30-5.90) m/uL Hgb 13.8 (13.0-17.5) gm/dL Hct 41.4 (39.0-53.0) % MCV 99.5 (80.0-100.0) fL MCH 33.2 (25.0-35.0) pg MCHC 33.3 (31.0-37.0) g/dL RDW 13.6 (11.5-15.5) % Plt Count 71 L (150-450) k/uL MPV 9.2 Neutrophils % 75 % Lymphocytes % 15 % Monocytes % 6 % Eosinophils % 2 % Basophils % 0 % Neutrophils # 3.3 (1.3-7.7) k/uL Lymphocytes # 0.6 L (1.0-4.8) k/uL Monocytes # 0.2 (0-1.0) k/uL Eosinophils # 0.1 (0-0.7) k/uL Basophils # 0.0 (0-0.2) k/uL Manual Slide Review Performed Sodium 138 (137-145) mmol/L Potassium 4.2 (3.5-5.1) mmol/L Chloride 109 H (98-107) mmol/L Carbon Dioxide 23 (22-30) mmol/L Anion Gap 6 mmol/L BUN 14 (9-20) mg/dL Creatinine 0.64 L (0.66-1.25) mg/dL Est GFR (CKD-EPI)AfAm >90 (>60 ml/min/1.73 sqM) Est GFR (CKD-EPI)NonAf >90 (>60 ml/min/1.73 sqM) Glucose 197 H (74-99) mg/dL Plasma Lactic Acid Evgeny (0.7-2.0) mmol/L Calcium 8.2 L (8.4-10.2) mg/dL Total Bilirubin 1.3 (0.2-1.3) mg/dL AST 56 (17-59) U/L ALT 30 (4-49) U/L Alkaline Phosphatase 98 (38-126) U/L Troponin I <0.012 (0.000-0.034) ng/mL Total Protein 6.5 (6.3-8.2) g/dL Albumin 3.6 (3.5-5.0) g/dL Amylase 52 (30-110) U/L Lipase 106 (23-300) U/L 02/10/22 Range/Units 15:07 WBC (3.8-10.6) k/uL RBC (4.30-5.90) m/uL Hgb (13.0-17.5) gm/dL Hct (39.0-53.0) % MCV (80.0-100.0) fL MCH (25.0-35.0) pg MCHC (31.0-37.0) g/dL RDW (11.5-15.5) % Plt Count (150-450) k/uL MPV Neutrophils % % Lymphocytes % % Monocytes % % Eosinophils % % Basophils % % Neutrophils # (1.3-7.7) k/uL Lymphocytes # (1.0-4.8) k/uL Monocytes # (0-1.0) k/uL Eosinophils # (0-0.7) k/uL Basophils # (0-0.2) k/uL Manual Slide Review Sodium (137-145) mmol/L Potassium (3.5-5.1) mmol/L Chloride (98-107) mmol/L Carbon Dioxide (22-30) mmol/L Anion Gap mmol/L BUN (9-20) mg/dL Creatinine (0.66-1.25) mg/dL Est GFR (CKD-EPI)AfAm (>60 ml/min/1.73 sqM) Est GFR (CKD-EPI)NonAf (>60 ml/min/1.73 sqM) Glucose (74-99) mg/dL Plasma Lactic Acid Evgeny 3.0 H* (0.7-2.0) mmol/L Calcium (8.4-10.2) mg/dL Total Bilirubin (0.2-1.3) mg/dL AST (17-59) U/L ALT (4-49) U/L Alkaline Phosphatase (38-126) U/L Troponin I (0.000-0.034) ng/mL Total Protein (6.3-8.2) g/dL Albumin (3.5-5.0) g/dL Amylase (30-110) U/L Lipase (23-300) U/L Disposition Clinical Impression: Acute cholecystitis Disposition: ADMITTED IP TO THIS [facility] Time of Disposition: 16:16
--- NOTE | 2022-02-10 16:03 | US ---
EXAMINATION TYPE: US gallbladder DATE OF EXAM: 02/10/2022 COMPARISON: NONE CLINICAL HISTORY: Right upper quadrant abdominal pain. RUQ pain, nausea EXAM MEASUREMENTS: Liver Length: 21.0 cm Gallbladder Wall: 0.3 cm CBD: 0.4 cm Right Kidney: 11.7 x 5.2 x 5.1 cm Pancreas: Tail obscured by overlying bowel gas Liver: enlarged, attenuating Gallbladder: Distended without evidence of wall thickening or pericholecystic fluid. Evidence for sonographic Pettit's sign: yes CBD: appears wnl Right Kidney: no evidence of hydronephrosis IMPRESSION: 1. Dilated gallbladder and the presence of a sonographic Pettit's sign without evidence for perichole cystic fluid or wall thickening. These findings are equivocal for acute cholecystitis. Consider dedic ated nuclear medicine HIDA scan to rule out acute cholecystitis. 2. Hepatocellular disease likely relating to hepatic steatosis.
[2022-02-10] MEDS ORDERED: SODIUM CHLORIDE 0.9% 1,000 ML IV ONE (16:16)
[2022-02-10 16:53] LABS: Appearance,Urine Clear (Clear); Bilirubin,Urine Negative (Negative); Blood,Urine Negative (Negative); Color,Urine Yellow; Glucose,Urine (UA) 2+ (Negative); Ketones,Urine Negative (Negative); Leukocyte Esterase,Urine Negative (Negative); Nitrite,Urine Negative (Negative); Protein,Urine Trace (Negative); Specific Gravity,Urine 1.024 (1.001-1.035)
[2022-02-10] MEDS ORDERED: NITROGLYCERIN SL TABS 0.4 MG TAB SUBLINGUAL PRN (19:11)
[2022-02-10 20:21] LABS: Glucose,Whole Blood 140 mg/dL (75-99)
[2022-02-10] MEDS ORDERED: ONDANSETRON 4 MG/2 ML VIAL IVP PRN (22:08)
[2022-02-10] MEDS ORDERED: HYDROmorphone 0.5 MG/0.5 ML SYRINGE IVP PRN (22:12)
[2022-02-10] MEDS: carvediloL 12.5 MG TAB PO SCH (22:16)
[2022-02-10] MEDS: INSULIN ASPART (NovoLOG) 100 UNIT/ML VIAL SQ SCH (22:16)
[2022-02-10] MEDS: metFORMIN 500 MG TAB PO SCH (22:17)
[2022-02-10] MEDS: PIPERACILLIN-TAZOBACTAM 3.375 GM in SODIUM CHLORIDE 0.9% 100 ML IVPB SCH (22:39)
[2022-02-11 07:19] LABS: Glucose,Whole Blood 126 mg/dL (75-99)
[2022-02-11] MEDS: INSULIN ASPART (NovoLOG) 100 UNIT/ML VIAL SQ SCH ×4 (08:05→20:06)
[2022-02-11] MEDS ORDERED: PANTOPRAZOLE 40 MG/10 ML VIAL IVP SCH (09:00)
[2022-02-11] MEDS: PIPERACILLIN-TAZOBACTAM 3.375 GM in SODIUM CHLORIDE 0.9% 100 ML IVPB SCH ×2 (09:17→16:42)
[2022-02-11] MEDS: ATORVASTATIN 80 MG TAB PO SCH (09:18)
[2022-02-11] MEDS: MAGNESIUM OXIDE 400 MG TAB PO SCH (09:18)
[2022-02-11] MEDS: carvediloL 12.5 MG TAB PO SCH ×2 (09:18→18:27)
[2022-02-11] MEDS: INSULN ASP PRT/INSULIN ASPART 100 UNIT/ML 10 ML VIAL SQ SCH (09:18)
[2022-02-11] MEDS: PANTOPRAZOLE 40 MG/10 ML VIAL IVP SCH (09:18)
[2022-02-11] MEDS: allopurinoL 100 MG TAB PO SCH (09:18)
[2022-02-11] MEDS: metFORMIN 500 MG TAB PO SCH ×2 (09:18→20:05)
[2022-02-11] MEDS: ASPIRIN 81 MG PO SCH (09:18)
--- NOTE | 2022-02-11 09:31 | NM ---
EXAMINATION TYPE: NM hepatobiliary w CCK DATE OF EXAM: 02/11/2022 COMPARISON: Ultrasound 02/10/2022 HISTORY: 76 year-old male right upper quadrant abdominal pain TECHNIQUE: After the intravenous administration of 5.1 mCi Tc 99m Mebrofenin hepatobiliary scintigrap hy is performed. Immediate images post injection. FINDINGS: There is satisfactory initial accumulation of tracer by the liver. The gallbladder is visualized wit hin 10 minutes. The small bowel activity is noted within 14 minutes. At one hour CCK was administer ed, patient was injected with 2.4 mcg of Kinevac, and gallbladder ejection fraction is calculated at 54 %, in the normal range. Therefore there is no scintigraphic evidence of cystic or common bile darshan t obstruction to suggest acute cholecystitis or gallbladder dyskinesia. IMPRESSION: No scintigraphic evidence for acute/chronic cholecystitis or biliary dyskinesia. Consider possible re ferred pain relating to the patient's fatty liver disease.
--- NOTE | 2022-02-11 10:45 | P.GSHP ---
History of Present Illness H&P Date: 02/11/22 CHIEF COMPLAINT: Abdominal pain HISTORY OF PRESENT ILLNESS: This is a 76-year-old male with a known history of peptic ulcer disease diagnosed in June 2021. He had EGD done at that time showing multiple gastric ulcers. Patient reports that he took what sounds like Protonix for possibly one month. Patient presents to the emergency room with complaints of epigastric pain and right upper quadrant pain that started around 10:30 after he ate breakfast at a restaurant where he had Japanese toast and eggs. Patient reports feeling very nauseated and did vomit some phlegm. Denies any fever chills or sweats. Patient had abdominal ultrasound that showed dilated gallbladder and the presence of sonographic Pettit sign without evidence for pericholecystic fluid or wall thickening. These findings are equivocal for acute cholecystitis. Patient had HIDA scan completed that showed no evidence for acute or chronic cholecystitis or biliary dyskinesia. Ejection fraction of 54%. Patient reports that he feels hungry. He reports that his pain has improved. However, patient is still very tender on exam. Patient does have a cardiac history with ischemic cardiomyopathy coronary artery disease with cardiac stents and 2 prior heart attacks. He denies any prior abdominal surgeries. PAST MEDICAL HISTORY: See list. PAST SURGICAL HISTORY: See list. MEDICATIONS: See list. ALLERGIES: See list. SOCIAL HISTORY: No illicit drug use. REVIEW OF SYSTEMS: CONSTITUTIONAL: Denies fever or chills. HEENT: Denies blurred vision, vision changes, or eye pain. Denies hemoptysis CARDIOVASCULAR: Denies chest pain or pressure. RESPIRATORY: No shortness of breath. GASTROINTESTINAL: See HPI for pertinent findings HEMATOLOGIC: Denies bleeding disorders. GENITOURINARY: Denies any blood in urine or increased urinary frequency. SKIN: Denies pruitis. Denies rash. PHYSICAL EXAM: VITAL SIGNS: Reviewed GENERAL: Well-developed in no acute distress. HEENT: No sclera icterus. Extraocular movements grossly intact. Moist buccal mucosa. Head is atraumatic, normocephalic. No nasal drainage. ABDOMEN: Soft. Obese. Nondistended. Tenderness to palpation of right upper quadrant NEUROLOGIC: Alert and oriented. Cranial nerves II through XII grossly intact. LABORATORY DATA: WBC 4.3 hemoglobin 13.8 platelets 71 Sodium 138 potassium 4.2 creatinine 0.64 Lactic acid 3 down to 1.7 LFTs are normal lipase normal Urinalysis no evidence of acute infection IMAGING: Ultrasound dilated gallbladder and presence of sonographic Pettit sign without evidence for pericholecystic fluid or wall thickening. These findings are equivocal for acute cholecystitis. Consider dedicated nuclear medicine HIDA sc an to rule out acute cholecystitis. Hepatocellular disease likely relating to hepatic steatosis HIDA scan no evidence for acute or chronic cholecystitis or biliary dyskinesia. Consider possible referred pain relating to patient's fatty liver disease ASSESSMENT: 1. Epigastric and right upper quadrant abdominal pain 2. Ultrasound with evidence of a dilated gallbladder. HIDA scan negative for acute on chronic cholecystitis or biliary dyskinesia 3. 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 Signing provider agrees with the documented findings, assessment, and plan of care. Past Medical History Past Medical History: Coronary Artery Disease (CAD), Chest Pain / Angina, Heart Failure, COPD, Diabetes Mellitus, GERD/Reflux, Hyperlipidemia, Hypertension, Myocardial Infarction ([place]), Pneumonia, Supraventricular Tachycardia (SVT), Vascular Disorder Additional Past Medical History / Comment(s): Ischemic cardiomyopathy, nonsustained ventriclar arrhythmia, systolic heart failure, [place] x 2 in 2001 and 1994, thrombocytopenia, cellulitis 2ndary to local trauma L patella, kidney stones which pt believes he passed, gout bilateral feet/ toes, occasional bilateral tinnitis, past 3-4 years intermittent bilateral leg pain but pt states he now takes quinine when this occurs and has relief of pain. 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 Past Anesthesia/Blood Transfusion Reactions: No Reported Reaction Additional Past Anesthesia/Blood Transfusion Reaction / Comment(s): never had a blood tranfusion Date of Last Stent Placement:: 02/05/19 Past Psychological History: No Psychological Hx Reported Additional Psychological History / Comment(s): Pt resides with his girlfriend in an apartment with elevators. He is independent. He is an [employer] served in [place]. He uses a walker. Smoking Status: Former smoker Past Alcohol Use History: Occasional Additional Past Alcohol Use History / Comment(s): Pt started smoking in 1964 and quit in 2002. He smoked 2-3 ppd. Past Drug Use History: None Reported - Past Family History Father History Unknown: Yes Additional Family Medical History / Comment(s): Pt does not know his father's history. His parents were when he was 6 yrs old. Mother History Unknown: Yes Family Medical History: Cancer Additional Family Medical History / Comment(s): Pt states mother had some form of cancer which she from at the age of 77yrs. Medications and Allergies Home Medications Medication Instructions Recorded Confirmed Type metFORMIN HCL [Glucophage] 1,000 mg PO BID 06/07/14 02/10/22 History Ferrous Sulfate [Iron (65 MG 325 mg PO DAILY 03/07/16 02/10/22 History Elemental)] Insulin NPH Hum/Reg Insulin Hm 20 unit SQ AC-BRKFST #0 07/29/17 02/10/22 Rx [NovoLIN 70-30 100 UNIT/ML VIAL] Magnesium Oxide [Mag-Ox] 250 mg PO DAILY 07/11/19 02/10/22 History Atorvastatin [Lipitor] 80 mg PO DAILY #30 tab 08/26/20 02/10/22 Rx Nitroglycerin Sl Tabs [Nitrostat] 0.4 mg SUBLINGUAL Q5M PRN 07/17/21 02/10/22 History allopurinoL [Zyloprim] 100 mg PO DAILY 07/17/21 02/10/22 History Carvedilol [Coreg] 12.5 mg PO BID 11/27/21 02/10/22 History Aspirin EC [Ecotrin Low Dose] 81 mg PO DAILY 02/10/22 02/10/22 History lisinopriL [Zestril] 2.5 mg PO DAILY 02/10/22 02/10/22 History Allergies Allergy/AdvReac Type Severity Reaction Status Date / Time No Known Allergies Allergy Verified 02/10/22 16:26 Surgical - Exam Vital Signs Pulse Resp BP Pulse Ox 65 20 155/85 98 02/10/22 14:38 02/10/22 14:38 02/10/22 14:38 02/10/22 14:38 Results - Labs 02/10/22 15:07 02/10/22 15:07 Abnormal Lab Results - Last 24 Hours (Table) 02/10/22 02/10/22 02/10/22 Range/Units 15:07 15:07 15:07 RBC 4.16 L (4.30-5.90) m/uL Plt Count 71 L (150-450) k/uL Lymphocytes # 0.6 L (1.0-4.8) k/uL Chloride 109 H (98-107) mmol/L Creatinine 0.64 L (0.66-1.25) mg/dL Glucose 197 H (74-99) mg/dL POC Glucose (mg/dL) (75-99) mg/dL Plasma Lactic Acid Evgeny 3.0 H* (0.7-2.0) mmol/L Calcium 8.2 L (8.4-10.2) mg/dL Urine Protein (Negative) Urine Glucose (UA) (Negative) 02/10/22 02/10/22 02/11/22 Range/Units 16:23 20:19 07:08 RBC (4.30-5.90) m/uL Plt Count (150-450) k/uL Lymphocytes # (1.0-4.8) k/uL Chloride (98-107) mmol/L Creatinine (0.66-1.25) mg/dL Glucose (74-99) mg/dL POC Glucose (mg/dL) 140 H 126 H (75-99) mg/dL Plasma Lactic Acid Evgeny (0.7-2.0) mmol/L Calcium (8.4-10.2) mg/dL Urine Protein Trace H (Negative) Urine Glucose (UA) 2+ H (Negative) Diabetes panel 02/10/22 Range/Units 15:07 Sodium 138 (137-145) mmol/L Potassium 4.2 (3.5-5.1) mmol/L Chloride 109 H (98-107) mmol/L Carbon Dioxide 23 (22-30) mmol/L BUN 14 (9-20) mg/dL Creatinine 0.64 L (0.66-1.25) mg/dL Glucose 197 H (74-99) mg/dL Calcium 8.2 L (8.4-10.2) mg/dL AST 56 (17-59) U/L ALT 30 (4-49) U/L Alkaline Phosphatase 98 (38-126) U/L Total Protein 6.5 (6.3-8.2) g/dL Albumin 3.6 (3.5-5.0) g/dL Calcium panel 02/10/22 Range/Units 15:07 Calcium 8.2 L (8.4-10.2) mg/dL Albumin 3.6 (3.5-5.0) g/dL Pituitary panel 02/10/22 Range/Units 15:07 Sodium 138 (137-145) mmol/L Potassium 4.2 (3.5-5.1) mmol/L Chloride 109 H (98-107) mmol/L Carbon Dioxide 23 (22-30) mmol/L BUN 14 (9-20) mg/dL Creatinine 0.64 L (0.66-1.25) mg/dL Glucose 197 H (74-99) mg/dL Calcium 8.2 L (8.4-10.2) mg/dL Adrenal panel 02/10/22 Range/Units 15:07 Sodium 138 (137-145) mmol/L Potassium 4.2 (3.5-5.1) mmol/L Chloride 109 H (98-107) mmol/L Carbon Dioxide 23 (22-30) mmol/L BUN 14 (9-20) mg/dL Creatinine 0.64 L (0.66-1.25) mg/dL Glucose 197 H (74-99) mg/dL Calcium 8.2 L (8.4-10.2) mg/dL Total Bilirubin 1.3 (0.2-1.3) mg/dL AST 56 (17-59) U/L ALT 30 (4-49) U/L Alkaline Phosphatase 98 (38-126) U/L Total Protein 6.5 (6.3-8.2) g/dL Albumin 3.6 (3.5-5.0) g/dL
[2022-02-11 11:03] LABS: African American GFR (CKD) 97.2 (60.0-200.0); Albumin 3.8 g/dL (3.8-4.9); Albumin/Globulin Ratio 1.73 (1.60-3.17); Anion Gap 9.1 mmol/L (10.00-18.00); BUN/Creat Ratio 14.89 Ratio (12.00-20.00); Blood Urea Nitrogen 13.4 mg/dL (9.0-27.0); Calcium 8.7 mg/dL (8.7-10.3); Carbon Dioxide 23.9 mmol/L (20.0-27.5); Globulin 2.2 g/dL (1.6-3.3); Non-African American GFR(CKD) 83.8 (60.0-200.0); Potassium 4.6 mmol/L (3.5-5.5); Total Bilirubin 1.1 mg/dL (0.30-1.20)
[2022-02-11 11:28] LABS: Basophils # (A) 0.01 X 10*3/uL (0.00-0.10); Basophils % (A) 0.2 %; Eosinophils # (A) 0 X 10*3/uL (0.04-0.35); Eosinophils % (A) 0 %; HCT 38.6 % (39.6-50.0); HGB 12.2 g/dL (13.0-17.0); Immature Grans, Automated 0.5 %; Immature Platelet Fraction 5.1 % (1.1-6.1); Lymphocytes # (A) 1.33 X 10*3/uL (0.90-5.00); Lymphocytes % (A) 32.3 %; MCH 32.1 pg (27.0-32.0); MCHC 31.6 g/dL (32.0-37.0); MCV 101.6 fL (80.0-97.0); Mean Platelet Volume 10.6 fL (9.5-12.2); Monocytes # (A) 0.44 X 10*3/uL (0.20-1.00); Monocytes % (A) 10.7 %; NRBC Per 100 WBC 0 /100 WBCS (0.0-0.0); Neutrophils # (A) 2.32 X 10*3/uL (1.80-7.70); Neutrophils % (A) 56.3 %; Platelet Count 60 X 10*3/uL (140-440); RDW 12.8 % (11.5-14.5); WBC 4.12 X 10*3/uL (4.50-10.00)
[2022-02-11 12:01] LABS: Glucose,Whole Blood 154 mg/dL (75-99)
--- NOTE | 2022-02-11 16:55 | P.CONS ---
History of Present Illness - Reason for Consult Peptic ulcer disease/gastritis - History of Present Illness 76-year-old male with known history of peptic ulcer disease came in with complaints of right mid and upper quadrant abdominal pain patient is clearly unable to characterize this pain is completed resolved at this time. Patient was noted to have cholecystitis or cholelithiasis because of which patient had an ultrasound which was equal local for acute cholecystitis because of which patient underwent HIDA scan which is not consistent with cholecystitis acute on chronic. In patient's pain completely resolved at this time patient was given Protonix. Patient doesn't have any fever chills. Patient had nausea vomiting as well no diarrhea. Patient denied any body aches or flulike symptoms. REVIEW OF SYSTEMS: CONSTITUTIONAL: No fever, no malaise, no fatigue. HEENT: No recent visual problems or hearing problems. Denied any sore throat. CARDIOVASCULAR: No chest pain, orthopnea, PND, no palpitations, no syncope. PULMONARY: No shortness of breath, no cough, no hemoptysis. GASTROINTESTINAL: As mentioned in HPI NEUROLOGICAL: No headaches, no weakness, no numbness. HEMATOLOGICAL: Denies any bleeding or petechiae. GENITOURINARY: Denies any burning micturition, frequency, or urgency. MUSCULOSKELETAL/RHEUMATOLOGICAL: Denies any joint pain, swelling, or any muscle pain. ENDOCRINE: Denies any polyuria or polydipsia. The rest of the 14-point review of systems is negative. PHYSICAL EXAMINATION: GENERAL: The patient is alert and oriented x3, not in any acute distress. Well developed, well nourished. HEENT: Pupils are round and equally reacting to light. EOMI. No scleral icterus. No conjunctival pallor. Normocephalic, atraumatic. No pharyngeal erythema. No thyromegaly. CARDIOVASCULAR: S1 and S2 present. No murmurs, rubs, or gallops. PULMONARY: Chest is clear to auscultation, no wheezing or crackles. ABDOMEN: Soft, nontender, nondistended, normoactive bowel sounds. No palpable organomegaly. MUSCULOSKELETAL: No joint swelling or deformity. EXTREMITIES: No cyanosis, clubbing, or pedal edema. NEUROLOGICAL: Gross neurological examination did not reveal any focal deficits. SKIN: No rashes. Assessment and plan -Epigastric and right upper quadrant abdominal pain: Secondary to most probably peptic ulcer disease or viral gastroenteritis. Ruled out for cholecystitis. Continue with Protonix patient's symptoms resolved patient is eating at this time. -COPD without any acute exacerbation -Type 2 diabetes mellitus -Hypertension -Coronary artery disease with stents in the past -Peripheral vascular disease For above-mentioned chronic medical problems patient will be resumed on appropriate home medications. DVT prophylaxis: As per primary service Past Medical History Past Medical History: Coronary Artery Disease (CAD), Chest Pain / Angina, Heart Failure, COPD, Diabetes Mellitus, GERD/Reflux, Hyperlipidemia, Hypertension, Myocardial Infarction (OR), Pneumonia, Supraventricular Tachycardia (SVT), Vascular Disorder Additional Past Medical History / Comment(s): Ischemic cardiomyopathy, nonsu stained ventriclar arrhythmia, systolic heart failure, OR x 2 in 2001 and 1994, thrombocytopenia, cellulitis 2ndary to local trauma L patella, kidney stones which pt believes he passed, gout bilateral feet/ toes, occasional bilateral tinnitis, past 3-4 years intermittent bilateral leg pain but pt states he now takes quinine when this occurs and has relief of pain. Last Myocardial Infarction Date:: 2001 History of Any Multi-Drug Resistant Organisms: None Reported Past Surgical History: Heart Catheterization, Heart Catheterization With Stent, Joint Replacement, Orthopedic Surgery Additional Past Surgical History / Comment(s): PCIs with a total of 6 stents per patient, cardiac ablation-AVRNT, EPS, R knee arthroscopy, bilateral total knee replacements-L side became infected-had I&D, bilateral shoulder rotator cuff surgeries with L side done 3 times, L ankle surgery, bilateral carpal tunnel r eleases, colonoscopy. Past Anesthesia/Blood Transfusion Reactions: No Reported Reaction Additional Past Anesthesia/Blood Transfusion Reaction / Comm: never had a blood tranfusion Date of Last Stent Placement:: 02/05/19 Past Psychological History: No Psychological Hx Reported Additional Psychological History / Comment(s): Pt resides with his girlfriend in an apartment with elevators. He is independent. He is an [employer] served in [place]. He uses a walker. Smoking Status: Former smoker Past Alcohol Use History: Occasional Additional Past Alcohol Use History / Comment(s): Pt started smoking in 1964 and quit in 2002. He smoked 2-3 ppd. Past Drug Use History: None Reported - Past Family History Father History Unknown: Yes Additional Family Medical History / Comment(s): Pt does not know his father's history. His parents were when he was 6 yrs old. Mother History Unknown: Yes Family Medical History: Cancer Additional Family Medical History / Comment(s): Pt states mother had some form of cancer which she from at the age of 77yrs. Medications and Allergies Home Medications Medication Instructions Recorded Confirmed Type metFORMIN HCL [Glucophage] 1,000 mg PO BID 06/07/14 02/10/22 History Ferrous Sulfate [Iron (65 MG 325 mg PO DAILY 03/07/16 02/10/22 History Elemental)] Insulin NPH Hum/Reg Insulin Hm 20 unit SQ AC-BRKFST #0 07/29/17 02/10/22 Rx [NovoLIN 70-30 100 UNIT/ML VIAL] Magnesium Oxide [Mag-Ox] 250 mg PO DAILY 07/11/19 02/10/22 History Atorvastatin [Lipitor] 80 mg PO DAILY #30 tab 08/26/20 02/10/22 Rx Nitroglycerin Sl Tabs [Nitrostat] 0.4 mg SUBLINGUAL Q5M PRN 07/17/21 02/10/22 History allopurinoL [Zyloprim] 100 mg PO DAILY 07/17/21 02/10/22 History Carvedilol [Coreg] 12.5 mg PO BID 11/27/21 02/10/22 History Aspirin EC [Ecotrin Low Dose] 81 mg PO DAILY 02/10/22 02/10/22 History lisinopriL [Zestril] 2.5 mg PO DAILY 02/10/22 02/10/22 History Allergies Allergy/AdvReac Type Severity Reaction Status Date / Time No Known Allergies Allergy Verified 02/10/22 16:26 Physical Exam Vitals: Vital Signs Temp Pulse Pulse Resp BP BP Pulse Ox 02/11/22 15:00 98.2 F 68 20 124/56 97 02/11/22 14:00 69 18 02/11/22 08:00 69 18 02/11/22 07:00 98.3 F 69 18 114/68 93 L 02/11/22 02:24 98.0 F 65 18 110/60 96 02/10/22 19:00 98.0 F 59 L 18 139/67 99 02/10/22 17:49 66 20 145/89 98 Intake and Output 02/11/22 02/11/22 02/11/22 06:59 14:59 22:59 Intake Total 240 Balance 240 Intake: Oral 240 Other: Voiding Method Toilet # Voids 2 6 2 Results CBC & Chem 7: 02/11/22 06:54 02/11/22 06:54 Labs: Abnormal Lab Results - Last 24 Hours (Table) 02/10/22 02/11/22 02/11/22 Range/Units 20:19 06:54 06:54 WBC 4.12 L (4.50-10.00) X 10*3/uL RBC 3.80 L (4.40-5.60) X 10*6/uL Hgb 12.2 L (13.0-17.0) g/dL Hct 38.6 L (39.6-50.0) % MCV 101.6 H (80.0-97.0) fL MCH 32.1 H (27.0-32.0) pg MCHC 31.6 L (32.0-37.0) g/dL Plt Count 60 L (140-440) X 10*3/uL Plt Count Comment DECREASED A Eosinophils # 0 L (0.04-0.35) X 10*3/uL Anion Gap (10.00-18.00) mmol/L Glucose (70-110) mg/dL POC Glucose (mg/dL) 140 H (75-99) mg/dL Hemoglobin A1c 7.2 H (0.0-6.0) % AST (14-35) U/L Total Protein (6.2-8.2) g/dL 02/11/22 02/11/22 02/11/22 Range/Units 06:54 07:08 11:51 WBC (4.50-10.00) X 10*3/uL RBC (4.40-5.60) X 10*6/uL Hgb (13.0-17.0) g/dL Hct (39.6-50.0) % MCV (80.0-97.0) fL MCH (27.0-32.0) pg MCHC (32.0-37.0) g/dL Plt Count (140-440) X 10*3/uL Plt Count Comment Eosinophils # (0.04-0.35) X 10*3/uL Anion Gap 9.10 L (10.00-18.00) mmol/L Glucose 135 H (70-110) mg/dL POC Glucose (mg/dL) 126 H 154 H (75-99) mg/dL Hemoglobin A1c (0.0-6.0) % AST 37 H (14-35) U/L Total Protein 6.0 L (6.2-8.2) g/dL
[2022-02-11 18:07] LABS: Glucose,Whole Blood 214 mg/dL (75-99)
[2022-02-11 20:06] LABS: Glucose,Whole Blood 209 mg/dL (75-99)
[2022-02-12] MEDS: PIPERACILLIN-TAZOBACTAM 3.375 GM in SODIUM CHLORIDE 0.9% 100 ML IVPB SCH ×2 (00:07→08:40)
[2022-02-12 07:30] LABS: Glucose,Whole Blood 150 mg/dL (75-99)
[2022-02-12] MEDS: INSULIN ASPART (NovoLOG) 100 UNIT/ML VIAL SQ SCH ×2 (08:33→12:31)
[2022-02-12] MEDS: INSULN ASP PRT/INSULIN ASPART 100 UNIT/ML 10 ML VIAL SQ SCH (08:35)
[2022-02-12] MEDS: PANTOPRAZOLE 40 MG/10 ML VIAL IVP SCH (08:37)
[2022-02-12] MEDS: metFORMIN 500 MG TAB PO SCH (08:47)
[2022-02-12] MEDS: allopurinoL 100 MG TAB PO SCH (08:48)
[2022-02-12] MEDS: carvediloL 12.5 MG TAB PO SCH (08:49)
[2022-02-12] MEDS: ATORVASTATIN 80 MG TAB PO SCH (08:49)
[2022-02-12] MEDS: MAGNESIUM OXIDE 400 MG TAB PO SCH (08:49)
[2022-02-12] MEDS: ASPIRIN 81 MG PO SCH (08:50)
[2022-02-12 09:10] VITALS: RESP 16; TEMP 98.5
[2022-02-12 09:17] LABS: HCT 39.4 % (39.0-53.0); MCH 33.1 pg (25.0-35.0); MCV 100.2 fL (80.0-100.0); Mean Platelet Volume 8.5; RBC 3.93 m/uL (4.30-5.90); RDW 13.5 % (11.5-15.5); WBC 2.5 k/uL (3.8-10.6)
[2022-02-12 09:48] LABS: Platelet Count 60 k/uL (150-450)
--- NOTE | 2022-02-12 12:17 | P.DS ---
Providers Date of admission: 02/10/22 16:16 Expected date of discharge: 02/12/22 Attending physician: Julien Quiroz Consults: 02/10/22 16:16 Consult Physician Urgent Consulting Provider: Alexandra Torres Consult Reason/Comments: Medical management Do you want consulting provider notified?: Yes Primary care physician: Carrie Izaguirre Hospital Course: Discharge diagnosis 1. Epigastric abdominal pain 2. Dilated gallbladder. HIDA scan negative for acute or chronic cholecystitis or biliary dyskinesia 3. History of peptic ulcer disease with multiple gastric ulcers on EGD in A ugust 2020 4. Thrombocytopenia Hospital course This is a 76-year-old male with a known history of peptic ulcer disease diagnosed in June 2021. He had EGD done at that time showing multiple gastric ulcers. Patient reports that he took what sounds like Protonix for possibly one month. Patient presents to the emergency room with complaints of epigastric pain and right upper quadrant pain that started around 10:30 after he ate breakfast at a restaurant where he had [place] toast and eggs. Patient reports feeling very nauseated and did vomit some phlegm. Denies any fever chills or sweats. Patient had abdominal ultrasound that showed dilated gallbladder and the presence of sonographic Pettit sign without evidence for pericholecystic fluid or wall thickening. These findings are equivocal for acute cholecystitis. Patient had HIDA scan completed that showed no evidence for acute or chronic cholecystitis or biliary dyskinesia. Ejection fraction of 54%. Patient's diet was advanced. He is tolerating diet. Denies any nausea or vomiting. Pain has shown improvement. Recommend repeat EGD which will be done outpatient on . Patient is stable for discharge. Please refer to chart for any further details. Patient given prescription to repeat CBC for follow-up on his platelets tomorrow prior to the EGD. Patient discharged with omeprazole. Physician Back Digger Operator note has been reviewed by physician. Signing provider agrees with the documented findings, assessment, and plan of care. Patient Condition at Discharge: Stable Plan - Discharge Summary Discharge Rx Participant: No New Discharge Prescriptions: New Omeprazole 40 mg PO DAILY #30 cap Continue metFORMIN HCL [Glucophage] 1,000 mg PO BID Ferrous Sulfate [Iron (65 MG Elemental)] 325 mg PO DAILY Insulin NPH Hum/Reg Insulin Hm [NovoLIN 70-30 100 UNIT/ML VIAL] 20 unit SQ AC-BRKFST #0 Magnesium Oxide [Mag-Ox] 250 mg PO DAILY Atorvastatin [Lipitor] 80 mg PO DAILY #30 tab allopurinoL [Zyloprim] 100 mg PO DAILY Carvedilol [Coreg] 12.5 mg PO BID lisinopriL [Zestril] 2.5 mg PO DAILY Nitroglycerin Sl Tabs [Nitrostat] 0.4 mg SUBLINGUAL Q5M PRN PRN Reason: Chest Pain Aspirin EC [Ecotrin Low Dose] 81 mg PO DAILY Discharge Medication List metFORMIN HCL [Glucophage] 1,000 mg PO BID 06/07/14 [History] Ferrous Sulfate [Iron (65 MG Elemental)] 325 mg PO DAILY 03/07/16 [History] Insulin NPH Hum/Reg Insulin Hm [NovoLIN 70-30 100 UNIT/ML VIAL] 20 unit SQ AC- BRKFST #0 07/29/17 [Rx] Magnesium Oxide [Mag-Ox] 250 mg PO DAILY 07/11/19 [History] Atorvastatin [Lipitor] 80 mg PO DAILY #30 tab 08/26/20 [Rx] Nitroglycerin Sl Tabs [Nitrostat] 0.4 mg SUBLINGUAL Q5M PRN 07/17/21 [History] allopurinoL [Zyloprim] 100 mg PO DAILY 07/17/21 [History] Carvedilol [Coreg] 12.5 mg PO BID 11/27/21 [History] Aspirin EC [Ecotrin Low Dose] 81 mg PO DAILY 02/10/22 [History] lisinopriL [Zestril] 2.5 mg PO DAILY 02/10/22 [History] Omeprazole 40 mg PO DAILY #30 cap 02/12/22 [Rx] Follow up Appointment(s)/Referral(s): Carrie Izaguirre MD [Primary Care Provider] - 1-2 days Julien Quiroz MD [STAFF PHYSICIAN] - 1 Week Ambulatory/Diagnostic Orders: Complete Blood Count w/diff [LAB.AMB] Time Frame: 1 Day, Location: None Selected Activity/Diet/Wound Care/Special Instructions: EGD scheduled for 02/14/2022 outpatient Scheduling will contact patient with time of appointment Continue to hold aspirin for EGD Discharge Disposition: HOME SELF-CARE
[2022-02-12 12:21] LABS: Glucose,Whole Blood 133 mg/dL (75-99)
[2022-02-12 14:24] VITALS: BP 107/64; PULSE 70
--- NOTE | 2022-02-12 15:00 | P.PN ---
Subjective Progress Note Date: 02/12/22 - Reason for Consult Peptic ulcer disease/gastritis - History of Present Illness 76-year-old male with known history of peptic ulcer disease came in with complaints of right mid and upper quadrant abdominal pain patient is clearly unable to characterize this pain is completed resolved at this time. Patient was noted to have cholecystitis or cholelithiasis because of which patient had an ultrasound which was equal local for acute cholecystitis because of which patient underwent HIDA scan which is not consistent with cholecystitis acute on chronic. In patient's pain completely resolved at this time patient was given Protonix. Patient doesn't have any fever chills. Patient had nausea vomiting as well no diarrhea. Patient denied any body aches or flulike symptoms. 02/12/2022 Patient is seen and evaluated in follow-up this morning currently sitting up at the bedside with no acute overnight issues noted. Patient denies further abdominal pain and states is resolved at this time. Patient is tolerating diet and is continued on omeprazole and will continue in the outpatient setting. Patient is admitted under surgical services and plan is for outpatient EGD this . Patient with mild thrombocytopenia and prescription was provided for repeat labs prior to EGD. Patient denies chest pain, shortness of breath, or palpitations. Patient is afebrile. No reports of nausea or vomiting noted and tolerating diet. Review of systems: Constitutional: No reports of fatigue, fever, or chills Cardiovascular: No reports of chest pain or palpitations Respiratory: No reports of shortness of breath or cough GI: No reports of nausea, vomiting, or diarrhea, reports passing gas although no bowel movement today : No reports of dysuria or retention Neurovascular: No reports of weakness or numbness All medications have been reviewed PHYSICAL EXAMINATION: GENERAL: The patient is alert and oriented x3, not in any acute distress. Well developed, well nourished. HEENT: Pupils are round and equally reacting to light. EOMI. No scleral icterus. No conjunctival pallor. Normocephalic, atraumatic. No pharyngeal erythema. No thyromegaly. CARDIOVASCULAR: S1 and S2 present. No murmurs, rubs, or gallops. PULMONARY: Chest is clear to auscultation, no wheezing or crackles. ABDOMEN: Soft, nontender, nondistended, normoactive bowel sounds. No palpable organomegaly. MUSCULOSKELETAL: No joint swelling or deformity. EXTREMITIES: No cyanosis, clubbing, or pedal edema. NEUROLOGICAL: Gross neurological examination did not reveal any focal deficits. SKIN: No rashes. Assessment: -Epigastric and right upper quadrant abdominal pain: Secondary to most probably peptic ulcer disease or viral gastroenteritis. Ruled out for cholecystitis. Patient will continue on omeprazole. -COPD without any acute exacerbation -Thrombocytopenia, platelets are 60 today -Type 2 diabetes mellitus -Hypertension -Coronary artery disease with stents in the past -Peripheral vascular disease -DVT prophylaxis: As per primary service -GI prophylaxis Full code Plan: Recommend continue with insistent carb diet and monitor for tolerance any worsening abdominal pain Continue to follow along with surgery and plan is for patient to be discharged today and outpatient EGD this Recommend repeat labs to monitor platelets prior to procedure and prescription was provided, platelet count is 60 today Encourage the patient to closely monitor blood sugars before meals and at bedtime and keep a diary for primary care follow-up Encouraged increased activity as tolerated Will continue to follow with surgery during hospitalization Thank you for this consultation. Patient will be discharged this afternoon The impression and plan of care has been dictated by Kelly Sumner, Nurse Practitioner as directed. Dr. Sinan MD I have performed a history and examination and MDM of this patient, discussed the same with the dictator, and agree with the dictator's assessment and plan as written ,documented as a scribe. Based on total visit time, I have performed more than 50% of the visit. Objective - Vital Signs Vital signs: Vital Signs Temp 98.5 F 02/12/22 07:00 Pulse 76 02/12/22 08:56 Resp 16 02/12/22 07:00 BP 102/55 02/12/22 07:00 Pulse Ox 96 02/12/22 07:00 Intake & Output 02/11/22 02/12/22 02/12/22 18:59 06:59 18:59 Intake Total 480 Balance 480 Intake: Oral 480 Other: Voiding Method Toilet # Voids 2 2 1 - Labs CBC & Chem 7: 02/12/22 08:55 02/11/22 06:54 Labs: Abnormal Lab Results - Last 24 Hours (Table) 02/11/22 02/11/22 02/11/22 Range/Units 06:54 06:54 06:54 WBC 4.12 L (4.50-10.00) X 10*3/uL RBC 3.80 L (4.40-5.60) X 10*6/uL Hgb 12.2 L (13.0-17.0) g/dL Hct 38.6 L (39.6-50.0) % MCV 101.6 H (80.0-97.0) fL MCH 32.1 H (27.0-32.0) pg MCHC 31.6 L (32.0-37.0) g/dL Plt Count 60 L (140-440) X 10*3/uL Plt Count Comment DECREASED A Eosinophils # 0 L (0.04-0.35) X 10*3/uL Anion Gap 9.10 L (10.00-18.00) mmol/L Glucose 135 H (70-110) mg/dL POC Glucose (mg/dL) (75-99) mg/dL Hemoglobin A1c 7.2 H (0.0-6.0) % AST 37 H (14-35) U/L Total Protein 6.0 L (6.2-8.2) g/dL 02/11/22 02/11/22 02/11/22 Range/Units 11:51 18:04 20:05 WBC (4.50-10.00) X 10*3/uL RBC (4.40-5.60) X 10*6/uL Hgb (13.0-17.0) g/dL Hct (39.6-50.0) % MCV (80.0-97.0) fL MCH (27.0-32.0) pg MCHC (32.0-37.0) g/dL Plt Count (140-440) X 10*3/uL Plt Count Comment Eosinophils # (0.04-0.35) X 10*3/uL Anion Gap (10.00-18.00) mmol/L Glucose (70-110) mg/dL POC Glucose (mg/dL) 154 H 214 H 209 H (75-99) mg/dL Hemoglobin A1c (0.0-6.0) % AST (14-35) U/L Total Protein (6.2-8.2) g/dL 02/12/22 02/12/22 Range/Units 07:29 08:55 WBC 2.5 L (4.50-10.00) X 10*3/uL RBC 3.93 L (4.40-5.60) X 10*6/uL Hgb (13.0-17.0) g/dL Hct (39.6-50.0) % MCV 100.2 H (80.0-97.0) fL MCH (27.0-32.0) pg MCHC (32.0-37.0) g/dL Plt Count 60 L (140-440) X 10*3/uL Plt Count Comment Eosinophils # (0.04-0.35) X 10*3/uL Anion Gap (10.00-18.00) mmol/L Glucose (70-110) mg/dL POC Glucose (mg/dL) 150 H (75-99) mg/dL Hemoglobin A1c (0.0-6.0) % AST (14-35) U/L Total Protein (6.2-8.2) g/dL
== END 2022-02-12 14:30 | disposition home or self-care (01) ==
LOC: EC 14:36 → 6NMEDSUR 16:16
PROVIDERS: ADMIT Surgery; ATTEND Surgery
DX: R10.13 Epigastric pain (principal); R10.11 Right upper quadrant pain; R11.2 Nausea with vomiting, unspecified; D69.6 Thrombocytopenia, unspecified; I11.0 Hypertensive heart disease with heart failure; I50.22 Chronic systolic (congestive) heart failure; I25.10 Atherosclerotic heart disease of native coronary artery without angina pectoris; I25.2 Old myocardial infarction; K82.8 Other specified diseases of gallbladder; E11.51 Type 2 diabetes mellitus with diabetic peripheral angiopathy without gangrene; J44.9 Chronic obstructive pulmonary disease, unspecified; E78.5 Hyperlipidemia, unspecified; K21.9 Gastro-esophageal reflux disease without esophagitis; I47.1 Supraventricular tachycardia; I25.5 Ischemic cardiomyopathy; M10.9 Gout, unspecified; I49.3 Ventricular premature depolarization; K76.0 Fatty (change of) liver, not elsewhere classified; M79.604 Pain in right leg; M79.605 Pain in left leg; Z79.84 Long term (current) use of oral hypoglycemic drugs; Z79.82 Long term (current) use of aspirin; Z79.4 Long term (current) use of insulin; Z79.899 Other long term (current) drug therapy; Z87.11 Personal history of peptic ulcer disease; Z87.01 Personal history of pneumonia (recurrent); Z87.442 Personal history of urinary calculi; Z87.2 Personal history of diseases of the skin and subcutaneous tissue; Z95.5 Presence of coronary angioplasty implant and graft; Z96.653 Presence of artificial knee joint, bilateral; Z98.890 Other specified postprocedural states; Z87.891 Personal history of nicotine dependence; Z80.9 Family history of malignant neoplasm, unspecified
CPT/HCPCS: 96376 ×2; 96365; 96366 ×3; 96375 ×2; 99285; 36415; 93005; 80053 ×2; 82150; 83605; 83690; 84484; 85025 ×2; 85027; 81003; 83036; 76705; 78227; G0378 ×3; A9537; J2543 ×3; J2405; J2805; C9113 ×3; J1170

== ENCOUNTER → 2022-02-13 | Outpatient (CLI) | payer MEDICARE ==
[2022-02-13 09:37] LABS: Basophils % (A) 1 %; Eosinophils # (A) 0.1 k/uL (0-0.7); Eosinophils % (A) 3 %; HCT 40.6 % (39.0-53.0); HGB 13.1 gm/dL (13.0-17.5); Lymphocytes # (A) 0.8 k/uL (1.0-4.8); Lymphocytes % (A) 25 %; MCH 33.2 pg (25.0-35.0); MCHC 32.3 g/dL (31.0-37.0); MCV 102.6 fL (80.0-100.0); Macrocytosis Slight; Monocytes # (A) 0.4 k/uL (0-1.0); Monocytes % (A) 12 %; Neutrophils # (A) 1.7 k/uL (1.3-7.7); Neutrophils % (A) 57 %; RBC 3.95 m/uL (4.30-5.90); WBC 3.1 k/uL (3.8-10.6)
[2022-02-13 09:55] LABS: Platelet Count 58 k/uL (150-450)
== END | disposition home or self-care (01) ==
LOC: LABWHC1 08:44
PROVIDERS: ATTEND Family Medicine
DX: D69.6 Thrombocytopenia, unspecified (principal)
CPT/HCPCS: 36415; 85025

== ENCOUNTER 2022-02-14 06:50 | Day surgery (SDC) | payer MEDICARE ==
[2022-02-12 16:25] VITALS: BMI 40.7
[~2022-02-14 06:50] MED LIST: LACTATED RINGERS 1,000 ML IV SCH; LIDOCAINE 1% (10MG/ML) FOR IV START INTRADERMA PRN; MIDAZOLAM 2 MG/2 ML VIAL IV PRN
[2022-02-14 07:42] VITALS: TEMP 97.1
[2022-02-14 07:46] LABS: Glucose,Whole Blood 172 mg/dL (75-99)
[2022-02-14] MEDS ORDERED: LIDOCAINE 1% INJ 10MG/ML (20 ML MDV) ONE (07:48)
[2022-02-14] MEDS ORDERED: PROPOFOL 10 MG/ML 20 ML VIAL IV ONE (07:48)
--- NOTE | 2022-02-14 07:54 | P.GSHP ---
History of Present Illness H&P Date: 02/14/22 Chief Complaint: Epigastric pain this a 76-year-old male who presents today for EGD. He's had complaints of epigastric pain. Past Medical History Past Medical History: Blood Disorder, Coronary Artery Disease (CAD), Chest Pain / Angina, Heart Failure, COPD, Diabetes Mellitus, GERD/Reflux, Hyperlipidemia, Hypertension, Myocardial Infarction (PA), Pneumonia, Supraventricular Tachycardia (SVT), Vascular Disorder Additional Past Medical History / Comment(s): Ischemic CMP, nonsustained ventriclar arrhythmia, systolic heart failure, PA x 2 in 2001, 1994, thrombocytopenia, kidney stones, gout bilateral feet/ toes, hx bilat tinnitis, stomach ulcers 2020 Last Myocardial Infarction Date:: 2001 History of Any Multi-Drug Resistant Organisms: None Reported Past Surgical History: Cardiac Ablation, Heart Catheterization, Heart Catheterization With Stent, Joint Replacement, Orthopedic Surgery Additional Past Surgical History / Comment(s): PCIs with total 6 stents per patient, cardiac ablation-AVRNT, EPS, R knee arthroscopy, bilateral total knee replacements-L side became infected-had I&D, bilateral shoulder rotator cuff surgeries with L side done 3 times, L ankle surgery, bilateral carpal tunnel releases, colonoscopy. EGD Past Anesthesia/Blood Transfusion Reactions: No Reported Reaction Additional Past Anesthesia/Blood Transfusion Reaction / Comment(s): never had a blood tranfusion Date of Last Stent Placement:: 02/05/19 Smoking Status: Former smoker - Past Family History Father History Unknown: Yes Additional Family Medical History / Comment(s): Pt does not know his father's history. His parents were when he was 6 yrs old. Mother History Unknown: Yes Family Medical History: Cancer Additional Family Medical History / Comment(s): Pt states mother had some form of cancer which she from at the age of 77yrs. Medications and Allergies Home Medications Medication Instructions Recorded Confirmed Type metFORMIN HCL [Glucophage] 1,000 mg PO BID 06/07/14 02/12/22 History Ferrous Sulfate [Iron (65 MG 325 mg PO DAILY 03/07/16 02/12/22 History Elemental)] Insulin NPH Hum/Reg Insulin Hm 20 unit SQ AC-BRKFST #0 07/29/17 02/12/22 Rx [NovoLIN 70-30 100 UNIT/ML VIAL] Magnesium Oxide [Mag-Ox] 250 mg PO DAILY 07/11/19 02/12/22 History Atorvastatin [Lipitor] 80 mg PO DAILY #30 tab 08/26/20 02/12/22 Rx Nitroglycerin Sl Tabs [Nitrostat] 0.4 mg SUBLINGUAL Q5M PRN 07/17/21 02/12/22 History allopurinoL [Zyloprim] 100 mg PO DAILY 07/17/21 02/12/22 History Carvedilol [Coreg] 12.5 mg PO BID 11/27/21 02/12/22 History Aspirin EC [Ecotrin Low Dose] 81 mg PO DAILY 02/10/22 02/12/22 History lisinopriL [Zestril] 2.5 mg PO DAILY 02/10/22 02/12/22 History Acetaminophen Tab [Tylenol] 650 mg PO Q6H PRN 02/12/22 02/12/22 History Omeprazole 40 mg PO DAILY #30 cap 02/12/22 02/12/22 Rx Allergies Allergy/AdvReac Type Severity Reaction Status Date / Time No Known Allergies Allergy Verified 02/14/22 07:21 Surgical - Exam Vital Signs Temp Pulse Resp BP Pulse Ox 97.1 F L 75 16 135/61 97 02/14/22 07:30 02/14/22 07:30 02/14/22 07:30 02/14/22 07:30 02/14/22 07:30 - General well developed, well nourished, no distress - Eyes PERRL - ENT normal pinna - Neck no masses - Respiratory normal expansion - Cardiovascular Rhythm: regular - Abdomen Abdomen: soft, non tender Results - Labs Abnormal Lab Results - Last 24 Hours (Table) 02/14/22 Range/Units 07:35 POC Glucose (mg/dL) 172 H (75-99) mg/dL Assessment and Plan Assessment: Epigastric pain. We'll perform EGD tonight for possible gastritis.
--- NOTE | 2022-02-14 08:01 | P.OP ---
Date of Procedure: 02/14/22 Preoperative Diagnosis: Epigastric pain Postoperative Diagnosis: Mild antral gastritis Procedure(s) Performed: EGD Anesthesia: MAC Surgeon: Julien Quiroz Pathology: other (Antrum) Condition: stable Disposition: PACU Description of Procedure: Patient's placed on the endoscopy table in the lateral position. He received IV sedation. The gastroscope placed oropharynx passed in the esophagus stomach. Scope was then placed through the pylorus. The first and second portion of the duodenum appeared normal. Scope was then brought back the antrum this appeared minimally inflamed. A biopsies was performed. The scope was retroflexed and remainder the stomach appeared normal. There was no hiatal hernia. The GE junction was at 440 cms. The distal esophagus appeared normal. The proximal esophagus appeared normal.
[2022-02-14] MEDS ORDERED: IV FLUID CONTINUATION 750 ML IV ONE (08:03)
[2022-02-14 08:28] VITALS: BP 118/76; PULSE 78; RESP 20
== END 2022-02-14 08:33 | disposition home or self-care (01) ==
LOC: ORWHC2ENDO 06:50
PROVIDERS: ATTEND Surgery
DX: K29.50 Unspecified chronic gastritis without bleeding (principal); I25.10 Atherosclerotic heart disease of native coronary artery without angina pectoris; I11.0 Hypertensive heart disease with heart failure; I50.20 Unspecified systolic (congestive) heart failure; J44.9 Chronic obstructive pulmonary disease, unspecified; I25.2 Old myocardial infarction; K21.9 Gastro-esophageal reflux disease without esophagitis; E78.5 Hyperlipidemia, unspecified; E11.9 Type 2 diabetes mellitus without complications; Z87.442 Personal history of urinary calculi; M10.9 Gout, unspecified; Z79.4 Long term (current) use of insulin; Z80.9 Family history of malignant neoplasm, unspecified
CPT/HCPCS: 43239; 88305; 88342; J2001; J2704

== ENCOUNTER 2022-02-24 14:50 | Emergency (ER) | payer MEDICARE ==
[2022-02-24] MEDS ORDERED: HYDROmorphone 0.5 MG/0.5 ML SYRINGE IVP STA ×3 (15:07→17:17)
[2022-02-24] MEDS ORDERED: SODIUM CHLORIDE 0.9% 1,000 ML IV STA (15:07)
[2022-02-24] MEDS ORDERED: ONDANSETRON 4 MG/2 ML VIAL IVP STA (15:07)
[2022-02-24] MEDS ORDERED: DICYCLOMINE 10 MG/ML 2 ML AMP IM STA (15:08)
[2022-02-24 15:24] VITALS: TEMP 97.2
[2022-02-24 15:52] LABS: ALT 26 U/L (4-49); AST 44 U/L (17-59); African American GFR (CKD) >90 (>60 ml/min/1.73 sqM); Albumin 4.3 g/dL (3.5-5.0); Alkaline Phosphatase 104 U/L (38-126); Amylase 60 U/L (30-110); Anion Gap 12 mmol/L; Blood Urea Nitrogen 12 mg/dL (9-20); Calcium 9.1 mg/dL (8.4-10.2); Carbon Dioxide 24 mmol/L (22-30); Chloride 105 mmol/L (98-107); Glucose 163 mg/dL (74-99); Lipase 95 U/L (23-300); Non-African American GFR(CKD) >90 (>60 ml/min/1.73 sqM); Potassium 4.4 mmol/L (3.5-5.1); Sodium 141 mmol/L (137-145); Total Bilirubin 1.8 mg/dL (0.2-1.3); Total Protein 7.8 g/dL (6.3-8.2)
[2022-02-24 15:54] LABS: Basophils # (A) 0.1 k/uL (0-0.2); Basophils % (A) 1 %; Eosinophils # (A) 0.1 k/uL (0-0.7); Eosinophils % (A) 3 %; HCT 45.4 % (39.0-53.0); HGB 14.7 gm/dL (13.0-17.5); Lymphocytes # (A) 1.1 k/uL (1.0-4.8); Lymphocytes % (A) 22 %; MCH 31.9 pg (25.0-35.0); MCHC 32.3 g/dL (31.0-37.0); MCV 98.9 fL (80.0-100.0); Mean Platelet Volume 8.6; Monocytes # (A) 0.3 k/uL (0-1.0); Monocytes % (A) 5 %; Neutrophils # (A) 3.5 k/uL (1.3-7.7); Neutrophils % (A) 68 %; RBC 4.59 m/uL (4.30-5.90); RDW 13.1 % (11.5-15.5); WBC 5.2 k/uL (3.8-10.6)
--- NOTE | 2022-02-24 16:07 | ED ---
Abdominal Pain HPI - General Source: patient, EMS, RN notes reviewed Mode of arrival: EMS Limitations: no limitations <Dwayne Girffiths - Last Filed: 02/24/22 16:52> <Julia Bo - Last Filed: 02/25/22 23:37> - General Chief Complaint: Abdominal Pain Stated Complaint: Abd pain Time Seen by Provider: 02/24/22 14:57 - History of Present Illness Initial Comments: This is a 76-year-old male presents emergency Department chief complaint of abdominal discomfort. Patient's had some recurrent issues with this. he states is in his epigastric to mid to rates of the right upper quadrant. Patient has been evaluated by surgery he had a HIDA scan, ultrasound. They did do an EGD which there was no specific findings. They felt that he does not have underlying, bladder disease he did have follow-up appointment on Friday with his surgeon Dr. Quiroz advising return if he had another episode. Patient with some nausea without significant vomiting diarrhea constipation no dysuria no hematuria. (Dwayne Griffiths) - Related Data Home Medications Medication Instructions Recorded Confirmed metFORMIN HCL [Glucophage] 1,000 mg PO BID 06/07/14 02/12/22 Ferrous Sulfate [Iron (65 MG 325 mg PO DAILY 03/07/16 02/12/22 Elemental)] Magnesium Oxide [Mag-Ox] 250 mg PO DAILY 07/11/19 02/12/22 Nitroglycerin Sl Tabs [Nitrostat] 0.4 mg SUBLINGUAL Q5M PRN 07/17/21 02/12/22 allopurinoL [Zyloprim] 100 mg PO DAILY 07/17/21 02/12/22 Carvedilol [Coreg] 12.5 mg PO BID 11/27/21 02/12/22 Aspirin EC [Ecotrin Low Dose] 81 mg PO DAILY 02/10/22 02/12/22 lisinopriL [Zestril] 2.5 mg PO DAILY 02/10/22 02/12/22 Acetaminophen Tab [Tylenol] 650 mg PO Q6H PRN 02/12/22 02/12/22 Previous Rx's Medication Instructions Recorded Insulin NPH Hum/Reg Insulin Hm 20 unit SQ AC-BRKFST #0 07/29/17 [NovoLIN 70-30 100 UNIT/ML VIAL] Atorvastatin [Lipitor] 80 mg PO DAILY #30 tab 10/03/20 Omeprazole 40 mg PO DAILY #30 cap 02/12/22 Allergies Allergy/AdvReac Type Severity Reaction Status Date / Time No Known Allergies Allergy Verified 02/14/22 07:21 Review of Systems ROS Other: All systems not noted in ROS Statement are negative. <Dwayne Griffiths - Last Filed: 02/24/22 16:52> ROS Other: All systems not noted in ROS Statement are negative. <Julia Bo - Last Filed: 02/25/22 23:37> ROS Statement: Those systems with pertinent positive or pertinent negative responses have been documented in the HPI. Past Medical History Past Medical History: Blood Disorder, Coronary Artery Disease (CAD), Chest Pain / Angina, Heart Failure, COPD, Diabetes Mellitus, GERD/Reflux, Hyperlipidemia, Hypertension, Myocardial Infarction ([place]), Pneumonia, Supraventricular Tachycardia (SVT), Vascular Disorder Additional Past Medical History / Comment(s): Ischemic CMP, nonsustained ventriclar arrhythmia, systolic heart failure, [place] x 2 in 2001, 1994, thrombocytopenia, kidney stones, gout bilateral feet/ toes, hx bilat tinnitis, stomach ulcers 2020 Last Myocardial Infarction Date:: 2001 History of Any Multi-Drug Resistant Organisms: None Reported Past Surgical History: Cardiac Ablation, Heart Catheterization, Heart Catheterization With Stent, Joint Replacement, Orthopedic Surgery Additional Past Surgical History / Comment(s): PCIs with total 6 stents per patient, cardiac ablation-AVRNT, EPS, R knee arthroscopy, bilateral total knee replacements-L side became infected-had I&D, bilateral shoulder rotator cuff surgeries with L side done 3 times, L ankle surgery, bilateral carpal tunnel releases, colonoscopy. EGD Past Anesthesia/Blood Transfusion Reactions: No Reported Reaction Additional Past Anesthesia/Blood Transfusion Reaction / Comment(s): never had a blood tranfusion Date of Last Stent Placement:: 02/05/19 Smoking Status: Former smoker - Past Family History Father History Unknown: Yes Additional Family Medical History / Comment(s): Pt does not know his father's history. His parents were when he was 6 yrs old. Mother History Unknown: Yes Family Medical History: Cancer Additional Family Medical History / Comment(s): Pt states mother had some form of cancer which she from at the age of 77yrs. <Dwayne Griffiths - Last Filed: 02/24/22 16:52> General Exam Limitations: no limitations General appearance: alert, in no apparent distress Head exam: Present: atraumatic, normocephalic, normal inspection Eye exam: Present: normal appearance, PERRL, EOMI. Absent: scleral icterus, conjunctival injection, periorbital swelling ENT exam: Present: normal exam, normal oropharynx, mucous membranes moist Neck exam: Present: normal inspection, full ROM. Absent: tenderness, meningismus, lymphadenopathy Respiratory exam: Present: normal lung sounds bilaterally. Absent: respiratory distress, wheezes, rales, rhonchi, stridor Cardiovascular Exam: Present: regular rate, normal rhythm, normal heart sounds. Absent: systolic murmur, diastolic murmur, rubs, gallop, clicks GI/Abdominal exam: Present: soft, tenderness, normal bowel sounds. Absent: distended, guarding, rebound, rigid Back exam: Absent: CVA tenderness (R), CVA tenderness (L) Neurological exam: Present: alert Skin exam: Present: warm, dry, intact, normal color. Absent: rash <Dwayne Griffiths - Last Filed: 02/24/22 16:52> Course Vital Signs 02/24/22 02/24/22 15:13 17:35 Temperature 97.2 F L Pulse Rate 65 61 Respiratory 14 18 Rate Blood Pressure 149/80 112/74 O2 Sat by Pulse 96 96 Oximetry Medical Decision Making - Lab Data Result diagrams: 02/24/22 15:34 02/24/22 15:34 <Dwayne Griffiths - Last Filed: 02/24/22 16:52> - Lab Data Result diagrams: 02/24/22 15:34 02/24/22 15:34 <Julia Bo - Last Filed: 02/25/22 23:37> - Medical Decision Making 76-year-old presented for dyspnea, some mild leg swelling. Patient does have pleural effusion, pulmonary edema on chest x-ray. BNP is over 15,000. Patient was givenLasix. Patient will be admitted as he has some cardiac history, CHF exacerbation. (Dwayne Griffiths) Incorrect MDM (Julia Bo) - Lab Data Lab Results 02/24/22 02/24/22 02/24/22 Range/Units 15:08 15:34 15:34 WBC 5.2 (3.8-10.6) k/uL RBC 4.59 (4.30-5.90) m/uL Hgb 14.7 (13.0-17.5) gm/dL Hct 45.4 (39.0-53.0) % MCV 98.9 (80.0-100.0) fL MCH 31.9 (25.0-35.0) pg MCHC 32.3 (31.0-37.0) g/dL RDW 13.1 (11.5-15.5) % Plt Count 89 L D (150-450) k/uL MPV 8.6 Neutrophils % 68 % Lymphocytes % 22 % Monocytes % 5 % Eosinophils % 3 % Basophils % 1 % Neutrophils # 3.5 (1.3-7.7) k/uL Lymphocytes # 1.1 (1.0-4.8) k/uL Monocytes # 0.3 (0-1.0) k/uL Eosinophils # 0.1 (0-0.7) k/uL Basophils # 0.1 (0-0.2) k/uL Sodium 141 (137-145) mmol/L Potassium 4.4 (3.5-5.1) mmol/L Chloride 105 (98-107) mmol/L Carbon Dioxide 24 (22-30) mmol/L Anion Gap 12 mmol/L BUN 12 (9-20) mg/dL Creatinine 0.76 (0.66-1.25) mg/dL Est GFR (CKD-EPI)AfAm >90 (>60 ml/min/1.73 sqM) Est GFR (CKD-EPI)NonAf >90 (>60 ml/min/1.73 sqM) Glucose 163 H (74-99) mg/dL Lactic Ac Sepsis Rflx Plasma Lactic Acid Evgeny 2.8 H* (0.7-2.0) mmol/L Calcium 9.1 (8.4-10.2) mg/dL Total Bilirubin 1.8 H (0.2-1.3) mg/dL AST 44 (17-59) U/L ALT 26 (4-49) U/L Alkaline Phosphatase 104 (38-126) U/L Total Protein 7.8 (6.3-8.2) g/dL Albumin 4.3 (3.5-5.0) g/dL Amylase 60 (30-110) U/L Lipase 95 (23-300) U/L Urine Color Urine Appearance (Clear) Urine pH (5.0-8.0) Ur Specific [place] (1.001-1.035) Urine Protein (Negative) Urine Glucose (UA) (Negative) Urine Ketones (Negative) Urine Blood (Negative) Urine Nitrite (Negative) Urine Bilirubin (Negative) Urine Urobilinogen (<2.0) mg/dL Ur Leukocyte Esterase (Negative) Urine RBC (0-5) /hpf Urine WBC (0-5) /hpf Ur Squamous Epith Cells (0-4) /hpf Urine Mucus (None) /hpf 02/24/22 02/24/22 Range/Units 15:59 16:59 WBC (3.8-10.6) k/uL RBC (4.30-5.90) m/uL Hgb (13.0-17.5) gm/dL Hct (39.0-53.0) % MCV (80.0-100.0) fL MCH (25.0-35.0) pg MCHC (31.0-37.0) g/dL RDW (11.5-15.5) % Plt Count (150-450) k/uL MPV Neutrophils % % Lymphocytes % % Monocytes % % Eosinophils % % Basophils % % Neutrophils # (1.3-7.7) k/uL Lymphocytes # (1.0-4.8) k/uL Monocytes # (0-1.0) k/uL Eosinophils # (0-0.7) k/uL Basophils # (0-0.2) k/uL Sodium (137-145) mmol/L Potassium (3.5-5.1) mmol/L Chloride (98-107) mmol/L Carbon Dioxide (22-30) mmol/L Anion Gap mmol/L BUN (9-20) mg/dL Creatinine (0.66-1.25) mg/dL Est GFR (CKD-EPI)AfAm (>60 ml/min/1.73 sqM) Est GFR (CKD-EPI)NonAf (>60 ml/min/1.73 sqM) Glucose (74-99) mg/dL Lactic Ac Sepsis Rflx Y Plasma Lactic Acid Evgeny (0.7-2.0) mmol/L Calcium (8.4-10.2) mg/dL Total Bilirubin (0.2-1.3) mg/dL AST (17-59) U/L ALT (4-49) U/L Alkaline Phosphatase (38-126) U/L Total Protein (6.3-8.2) g/dL Albumin (3.5-5.0) g/dL Amylase (30-110) U/L Lipase (23-300) U/L Urine Color Yellow Urine Appearance Clear (Clear) Urine pH 5.5 (5.0-8.0) Ur Specific [place] 1.036 H (1.001-1.035) Urine Protein 1+ H (Negative) Urine Glucose (UA) Negative (Negative) Urine Ketones Negative (Negative) Urine Blood Negative (Negative) Urine Nitrite Negative (Negative) Urine Bilirubin Negative (Negative) Urine Urobilinogen <2.0 (<2.0) mg/dL Ur Leukocyte Esterase Negative (Negative) Urine RBC 1 (0-5) /hpf Urine WBC 3 (0-5) /hpf Ur Squamous Epith Cells 1 (0-4) /hpf Urine Mucus Occasional H (None) /hpf Disposition <Dwayne Griffiths - Last Filed: 02/24/22 16:52> Is patient prescribed a controlled substance at d/c from ED?: No <Julia Bo - Last Filed: 02/25/22 23:37> Clinical Impression: Abdominal pain Disposition: HOME SELF-CARE Condition: Stable Instructions (If sedation given, give patient instructions): Abdominal Pain (ED) Additional Instructions: Please return to the Emergency Department if symptoms worsen or any other concerns. Referrals: Carrie Izaguirre MD [Primary Care Provider] - 1-2 days
[2022-02-24 16:09] LABS: Platelet Count 89 k/uL (150-450)
--- NOTE | 2022-02-24 16:47 | CT ---
EXAMINATION TYPE: CT abdomen pelvis w con DATE OF EXAM: 02/24/2022 COMPARISON: Nuclear medicine HIDA scan 02/01/2022, ultrasound gallbladder 02/10/2022, CT abdomen/pelvis 07/18/2018 HISTORY: epigastric pain CT DLP: 2645 mGycm. Automated Exposure Control for Dose Reduction was Utilized. TECHNIQUE: Multiple contiguous axial CT images of the abdomen and pelvis were obtained from the lung bases through the pubic symphysis with IV Contrast, patient injected with 100 mL of Isovue 300. 2-D s agittal and coronal reformatted images were obtained. FINDINGS: Lung bases are clear. Diffuse decreased attenuation of the liver parenchyma which likely relates to fatty infiltration. The re is a mild lobular appearance to the liver. Spleen appears mildly enlarged. Pancreas and bilateral adrenal glands have an unremarkable enhanced appearance. Gallbladder is present and appears distended with tiny calcified gallstone layering dependently. No d efinite intrahepatic or extrahepatic biliary ductal dilatation. Kidneys are symmetric in size without hydronephrosis. No renal or ureteral calculi. Urinary bladder a ppears unremarkable. Prostate gland appears mildly enlarged. Visualized bowel is of normal caliber without evidence of obstruction. No significant mesenteric infl ammation. Severe burden of distal colonic diverticulosis without adjacent inflammatory changes Append ix appears unremarkable. No free air. Severe atherosclerotic vascular calcifications of the abdominal aorta and common iliac arteries witho ut aneurysm. There is mild ectasia of the infrarenal abdominal aorta measuring 2.5 cm. No intra-abdom inal or retroperitoneal lymphadenopathy. Subcutaneous soft tissues appear unremarkable. Osseous struc tures appear intact. Moderate multilevel degenerative changes of the visualized thoracolumbar spine most pronounced at the levels of L4-5 and L5-S1 causing moderate to severe bilateral neural foraminal narrowing at the leve l of L5-S1. IMPRESSION: 1. No acute intraabdominal process. 2. Hepatic steatosis with slight lobular appearance of the liver which may relate to underlying cirrh osis. 3. Mild splenomegaly which may relate to underlying portal hypertension.
[2022-02-24] MEDS ORDERED: MAG HYDROX/AL HYDROX/SIMETH 30 ML, HYOSCYAMINE ELIXIR 10 ML PO STA ×2 (16:58)
[2022-02-24] MEDS ORDERED: FUROSEMIDE 10 MG/ML 4 ML VIAL IV SCH (17:00)
[2022-02-24 17:11] LABS: Appearance,Urine Clear (Clear); Bilirubin,Urine Negative (Negative); Blood,Urine Negative (Negative); Color,Urine Yellow; Glucose,Urine (UA) Negative (Negative); Ketones,Urine Negative (Negative); Leukocyte Esterase,Urine Negative (Negative); Mucus,Urine Occasional /hpf; Nitrite,Urine Negative (Negative); PH, Urine 5.5 (5.0-8.0); Protein,Urine 1+ (Negative); RBC,Urine 1 /hpf (0-5); Specific Gravity,Urine 1.036 (1.001-1.035); Squamous Epithelial Cell,Urine 1 /hpf (0-4); Urobilinogen,Urine <2.0 mg/dL (<2.0); WBC,Urine 3 /hpf (0-5)
[2022-02-24] MEDS ORDERED: ACET/COD 300 MG/30 MG STARTER PACK 6 TAB BTL PO STA (17:17)
[2022-02-24] MEDS ORDERED: KETOROLAC 15 MG/ML 1 ML VIAL IVP STA (17:17)
--- NOTE | 2022-02-24 17:17 | ED ---
Medical Decision Making - Lab Data Result diagrams: 02/24/22 15:34 02/24/22 15:34 <Dwayne Griffiths - Last Filed: 02/24/22 17:15> - Lab Data Result diagrams: 02/24/22 15:34 02/24/22 15:34 <Julia Bo - Last Filed: 02/25/22 23:35> - Medical Decision Making There was an air arm prior charting patient MDM and disposition was for the wrong patient. 76-year-old male presented for abdominal pain. Patient had recent workup including gallbladder issue, EGD with no specific findings. Patient had no episode that started today. Patient labs and CT was performed with no specific findings other then liver cirrhosis. Patient was given GI cocktail, pain meds. He is advised to follow-up with Dr. Stewart tomorrow and will return for any worsening change in symptoms. (Dwayne Griffiths) I was available for consultation in the emergency department. The history and physical exam were done by the midlevel provider. I was consulted for this patients care. I reviewed the case with the midlevel provider and based on their presentation of the patient, I agree with the assessment, medical decision making and plan of care as documented. Chart was dictated using [employer] dictation software. Attempts were made to correct any dictation errors however some typographical errors may persist. (Julia Bo) - Lab Data Lab Results 02/24/22 02/24/22 02/24/22 Range/Units 15:08 15:34 15:34 WBC 5.2 (3.8-10.6) k/uL RBC 4.59 (4.30-5.90) m/uL Hgb 14.7 (13.0-17.5) gm/dL Hct 45.4 (39.0-53.0) % MCV 98.9 (80.0-100.0) fL MCH 31.9 (25.0-35.0) pg MCHC 32.3 (31.0-37.0) g/dL RDW 13.1 (11.5-15.5) % Plt Count 89 L D (150-450) k/uL MPV 8.6 Neutrophils % 68 % Lymphocytes % 22 % Monocytes % 5 % Eosinophils % 3 % Basophils % 1 % Neutrophils # 3.5 (1.3-7.7) k/uL Lymphocytes # 1.1 (1.0-4.8) k/uL Monocytes # 0.3 (0-1.0) k/uL Eosinophils # 0.1 (0-0.7) k/uL Basophils # 0.1 (0-0.2) k/uL Sodium 141 (137-145) mmol/L Potassium 4.4 (3.5-5.1) mmol/L Chloride 105 (98-107) mmol/L Carbon Dioxide 24 (22-30) mmol/L Anion Gap 12 mmol/L BUN 12 (9-20) mg/dL Creatinine 0.76 (0.66-1.25) mg/dL Est GFR (CKD-EPI)AfAm >90 (>60 ml/min/1.73 sqM) Est GFR (CKD-EPI)NonAf >90 (>60 ml/min/1.73 sqM) Glucose 163 H (74-99) mg/dL Lactic Ac Sepsis Rflx Plasma Lactic Acid Evgeny 2.8 H* (0.7-2.0) mmol/L Calcium 9.1 (8.4-10.2) mg/dL Total Bilirubin 1.8 H (0.2-1.3) mg/dL AST 44 (17-59) U/L ALT 26 (4-49) U/L Alkaline Phosphatase 104 (38-126) U/L Total Protein 7.8 (6.3-8.2) g/dL Albumin 4.3 (3.5-5.0) g/dL Amylase 60 (30-110) U/L Lipase 95 (23-300) U/L Urine Color Urine Appearance (Clear) Urine pH (5.0-8.0) Ur Specific [place] (1.001-1.035) Urine Protein (Negative) Urine Glucose (UA) (Negative) Urine Ketones (Negative) Urine Blood (Negative) Urine Nitrite (Negative) Urine Bilirubin (Negative) Urine Urobilinogen (<2.0) mg/dL Ur Leukocyte Esterase (Negative) Urine RBC (0-5) /hpf Urine WBC (0-5) /hpf Ur Squamous Epith Cells (0-4) /hpf Urine Mucus (None) /hpf 02/24/22 02/24/22 Range/Units 15:59 16:59 WBC (3.8-10.6) k/uL RBC (4.30-5.90) m/uL Hgb (13.0-17.5) gm/dL Hct (39.0-53.0) % MCV (80.0-100.0) fL MCH (25.0-35.0) pg MCHC (31.0-37.0) g/dL RDW (11.5-15.5) % Plt Count (150-450) k/uL MPV Neutrophils % % Lymphocytes % % Monocytes % % Eosinophils % % Basophils % % Neutrophils # (1.3-7.7) k/uL Lymphocytes # (1.0-4.8) k/uL Monocytes # (0-1.0) k/uL Eosinophils # (0-0.7) k/uL Basophils # (0-0.2) k/uL Sodium (137-145) mmol/L Potassium (3.5-5.1) mmol/L Chloride (98-107) mmol/L Carbon Dioxide (22-30) mmol/L Anion Gap mmol/L BUN (9-20) mg/dL Creatinine (0.66-1.25) mg/dL Est GFR (CKD-EPI)AfAm (>60 ml/min/1.73 sqM) Est GFR (CKD-EPI)NonAf (>60 ml/min/1.73 sqM) Glucose (74-99) mg/dL Lactic Ac Sepsis Rflx Y Plasma Lactic Acid Evgeny (0.7-2.0) mmol/L Calcium (8.4-10.2) mg/dL Total Bilirubin (0.2-1.3) mg/dL AST (17-59) U/L ALT (4-49) U/L Alkaline Phosphatase (38-126) U/L Total Protein (6.3-8.2) g/dL Albumin (3.5-5.0) g/dL Amylase (30-110) U/L Lipase (23-300) U/L Urine Color Yellow Urine Appearance Clear (Clear) Urine pH 5.5 (5.0-8.0) Ur Specific [place] 1.036 H (1.001-1.035) Urine Protein 1+ H (Negative) Urine Glucose (UA) Negative (Negative) Urine Ketones Negative (Negative) Urine Blood Negative (Negative) Urine Nitrite Negative (Negative) Urine Bilirubin Negative (Negative) Urine Urobilinogen <2.0 (<2.0) mg/dL Ur Leukocyte Esterase Negative (Negative) Urine RBC 1 (0-5) /hpf Urine WBC 3 (0-5) /hpf Ur Squamous Epith Cells 1 (0-4) /hpf Urine Mucus Occasional H (None) /hpf Disposition Is patient prescribed a controlled substance at d/c from ED?: No Time of Disposition: 17:17 <Dwyane Griffiths - Last Filed: 02/24/22 17:15> <Julia Bo A - Last Filed: 02/25/22 23:35> Clinical Impression: Abdominal pain Clinical Impression: (Ruled Out): Acute exacerbation of CHF (congestive heart failure) Disposition: HOME SELF-CARE Condition: Stable Instructions (If sedation given, give patient instructions): Abdominal Pain (ED) Additional Instructions: Please return to the Emergency Department if symptoms worsen or any other concerns. Referrals: Carrie Izaguirre MD [Primary Care Provider] - 1-2 days
[2022-02-24 17:35] VITALS: BP 112/74; PULSE 61; RESP 18
== END 2022-02-24 17:50 | disposition home or self-care (01) ==
LOC: EC 14:50
DX: R10.13 Epigastric pain (principal); I25.10 Atherosclerotic heart disease of native coronary artery without angina pectoris; I11.0 Hypertensive heart disease with heart failure; I50.9 Heart failure, unspecified; J44.9 Chronic obstructive pulmonary disease, unspecified; E11.9 Type 2 diabetes mellitus without complications; K21.9 Gastro-esophageal reflux disease without esophagitis; E78.5 Hyperlipidemia, unspecified; I25.2 Old myocardial infarction; Z79.84 Long term (current) use of oral hypoglycemic drugs; Z79.82 Long term (current) use of aspirin; Z79.4 Long term (current) use of insulin; Z87.442 Personal history of urinary calculi; Z96.653 Presence of artificial knee joint, bilateral; Z87.891 Personal history of nicotine dependence
CPT/HCPCS: 99284; 96374; 96375 ×2; 96376; 96361; 96372; 36415; 80053; 82150; 83605; 83690; 85025; 81001; 74177; J0500; J2405; J1885; J1170; Q9967

== ENCOUNTER 2022-03-11 06:05 | Observation (INO) | payer MEDICARE ==
[~2022-03-11 06:05] MED LIST changes: +ACETAMINOPHEN TAB 500 MG TAB PO PRN; +DEXAMETHASONE SOD PHOSPHATE 4 MG/ML 1 ML VIAL IV ONE; +HEPARIN SODIUM,PORCINE/PF 5,000 UNIT/0.5 ML SYRINGE SQ PRN; +HYDROmorphone 0.5 MG/0.5 ML SYRINGE IVP PRN; -LACTATED RINGERS 1,000 ML IV SCH; -LIDOCAINE 1% (10MG/ML) FOR IV START INTRADERMA PRN; -MIDAZOLAM 2 MG/2 ML VIAL IV PRN; +ONDANSETRON 4 MG/2 ML VIAL IVP ONE
[2022-03-11] MEDS ORDERED: BUPIVACAINE (PF) 0.25% 30 ML VIAL SQ ONE ×2 (07:24→08:18)
[2022-03-11 07:31] LABS: Glucose,Whole Blood 164 mg/dL (75-99)
[2022-03-11] MEDS: LACTATED RINGERS 1,000 ML IV SCH (07:40)
[2022-03-11] MEDS ORDERED: GLYCOPYRROLATE 0.2 MG/ML 2 ML VIAL ONE (07:50)
[2022-03-11] MEDS ORDERED: ROCURONIUM 10 MG/ML (5 ML VIAL) IV ONE (07:50)
[2022-03-11] MEDS ORDERED: MIDAZOLAM 2 MG/2 ML VIAL ONE (07:50)
[2022-03-11] MEDS ORDERED: HYDROmorphone (PF) 1 MG/ML ONE (07:50)
[2022-03-11] MEDS ORDERED: LIDOCAINE 1% INJ 10MG/ML (20 ML MDV) ONE (07:50)
[2022-03-11] MEDS ORDERED: PROPOFOL 10 MG/ML 20 ML VIAL IV ONE (07:50)
[2022-03-11] MEDS ORDERED: SUCCINYLCHOLINE CHLORIDE VIAL 200 MG/10 ML VIAL IV ONE (07:50)
[2022-03-11] MEDS ORDERED: fentaNYL (PF) 50 MCG/ML 2 ML AMP ONE (07:50)
[2022-03-11] MEDS ORDERED: NEOSTIGMINE 1 MG/ML 10 ML VIAL ONE (07:50)
--- NOTE | 2022-03-11 07:52 | P.GSHP ---
History of Present Illness H&P Date: 03/11/22 Chief Complaint: Cholelithiasis This is an for male with complaints of pain. Patient's workup was found have cholelithiasis. He presents today for laparoscopic cholecystectomy Past Medical History Past Medical History: Blood Disorder, Coronary Artery Disease (CAD), Chest Pain / Angina, Heart Failure, COPD, Diabetes Mellitus, GERD/Reflux, Hyperlipidemia, Hypertension, Myocardial Infarction ([place]), Pneumonia, Supraventricular Tachyca rdia (SVT), Vascular Disorder Additional Past Medical History / Comment(s): Ischemic CMP, nonsustained ventriclar arrhythmia, systolic heart failure, [place] x 2 in 2001, 1994, thr ombocytopenia, kidney stones, gout bilateral feet/ toes, hx bilat tinnitis, stomach ulcers 2020 Last Myocardial Infarction Date:: 2001 History of Any Multi-Drug Resistant Organisms: None Reported Past Surgical History: Cardiac Ablation, Heart Catheterization, Heart Catheterization With Stent, Joint Replacement, Orthopedic Surgery Additional Past Surgical History / Comment(s): PCIs with total 6 stents per patient, cardiac ablation-AVRNT, EPS, R knee arthroscopy, bilateral total knee replacements-L side became infected-had I&D, bilateral shoulder rotator cuff surgeries with L side done 3 times, L ankle surgery, bilateral carpal tunnel releases, colonoscopy. EGD Past Anesthesia/Blood Transfusion Reactions: No Reported Reaction Additional Past Anesthesia/Blood Transfusion Reaction / Comment(s): never had a blood tranfusion Date of Last Stent Placement:: 02/05/19 Past Psychological History: No Psychological Hx Reported Additional Psychological History / Comment(s): Pt resides with his girlfriend in an apartment with elevators. He is independent. He is an [employer] served in [employer]. He uses a walker. Smoking Status: Former smoker Past Alcohol Use History: Occasional Additional Past Alcohol Use History / Comment(s): Pt started smoking in 1964 and quit in 2002. He smoked 2-3 ppd. Past Drug Use History: None Reported - Past Family History Father History Unknown: Yes Additional Family Medical History / Comment(s): Pt does not know his father's history. His parents were when he was 6 yrs old. Mother History Unknown: Yes Family Medical History: Cancer Additional Family Medical History / Comment(s): Pt states mother had some form of cancer which she from at the age of 77yrs. Medications and Allergies Home Medications Medication Instructions Recorded Confirmed Type metFORMIN HCL [Glucophage] 1,000 mg PO BID 06/07/14 03/11/22 History Ferrous Sulfate [Iron (65 MG 325 mg PO DAILY 03/07/16 03/11/22 History Elemental)] Insulin NPH Hum/Reg Insulin Hm 20 unit SQ AC-BRKFST #0 07/29/17 03/11/22 Rx [NovoLIN 70-30 100 UNIT/ML VIAL] Magnesium Oxide [Mag-Ox] 250 mg PO DAILY 07/11/19 03/11/22 History Nitroglycerin Sl Tabs [Nitrostat] 0.4 mg SUBLINGUAL Q5M PRN 07/17/21 03/11/22 History allopurinoL [Zyloprim] 100 mg PO QAM 07/17/21 03/11/22 History Carvedilol [Coreg] 12.5 mg PO BID 11/27/21 03/11/22 History Aspirin EC [Ecotrin Low Dose] 81 mg PO DAILY 02/10/22 03/11/22 History lisinopriL [Zestril] 2.5 mg PO QAM 02/10/22 03/11/22 History Acetaminophen Tab [Tylenol] 650 mg PO Q6H PRN 02/12/22 03/11/22 History Atorvastatin [Lipitor] 80 mg PO QAM 03/07/22 03/11/22 History Omeprazole 40 mg PO QAM 03/07/22 03/11/22 History Allergies Allergy/AdvReac Type Severity Reaction Status Date / Time No Known Allergies Allergy Verified 03/11/22 06:56 Surgical - Exam Vital Signs Temp Pulse Resp BP Pulse Ox 97.0 F L 62 16 142/65 97 03/11/22 07:05 03/11/22 07:05 03/11/22 07:05 03/11/22 07:05 03/11/22 07:05 - General well developed, well nourished, no distress - Eyes PERRL - ENT normal pinna - Neck no masses - Respiratory normal expansion - Cardiovascular Rhythm: regular - Abdomen Abdomen: soft, non tender Results - Labs Abnormal Lab Results - Last 24 Hours (Table) 03/11/22 Range/Units 07:19 POC Glucose (mg/dL) 164 H (75-99) mg/dL Assessment and Plan Assessment: Cholelithiasis. We'll perform laparoscopic cholecystectomy.
[2022-03-11] MEDS ORDERED: LACTATED RINGERS 1,000 ML IV ONE ×2 (08:44→09:00)
[2022-03-11] MEDS ORDERED: ONDANSETRON 4 MG/2 ML VIAL IVP PRN (09:00)
[2022-03-11] MEDS ORDERED: NALOXONE 0.4 MG/ML 1 ML VIAL IV PRN (09:00)
[2022-03-11] MEDS ORDERED: HYDROmorphone 0.5 MG/0.5 ML SYRINGE IVP PRN (09:00)
--- NOTE | 2022-03-11 09:00 | P.OP ---
Date of Procedure: 03/11/22 Preoperative Diagnosis: Cholelithiasis Cholecystitis Postoperative Diagnosis: Cholelithiasis Cholecystitis Cirrhosis of liver Procedure(s) Performed: Laparoscopic cholecystectomy Anesthesia: EDNA Surgeon: Julien Quiroz Estimated Blood Loss (ml): 10 Pathology: other (Gallbladder) Condition: stable Disposition: PACU Description of Procedure: The patient was placed on the operating table. The patient received a general endotracheal tube anesthesia. The patients abdomen was prepped and draped in the usual sterile fashion. Through an infraumbilical stab incision, the fascia of the anterior abdominal wall was grasped with a pair of Kochers and then the Veress needle was placed in the peritoneal cavity. Position of the Veress needle was confirmed with positive drop test. The abdomen was then insufflated. After adequate insufflation, the 10 mm trocar was placed in the peritoneal cavity. Following this the laparoscope was placed in the peritoneal cavity. The patient was placed in the head-up, right side up position and then a 5 mm trocar was placed in the right lateral and right subcostal position under direct visualization. A 8 mm trocar was placed in the epigastric position. The liver was cirrhotic. The liver was enlarged. It was difficult to mobilize the liver. The gallbladder was grasped in the fundus and infundibulum. Traction on the gallbladder was placed in the lateral and the cephalad positions. The triangle of [place] was visualized.. The cystic duct was bluntly dissected until the union of the cystic duct and common bile duct was seen. A critical view of safety was achieved. The cystic duct was then divided and sealed with the Harmonic scissors. A PDS Endoloop was then placed throughout the cystic duct stump. The cystic artery divided and sealed with the Harmonic scissors. The gallbladder was then removed from the liver bed using Harmonic scissors. The gallbladder was then extracted through the epigastric port site. Operative field was checked for any bleeding spots and Harmonic scissors was used to coagulate the liver bed. The abdomen was irrigated. The trocars were removed. The skin was closed using interrupted 3-0 Vicryl suture. Dermabond dressing were applied. The patient tolerated the procedure well.
[2022-03-11 09:03] LABS: Glucose,Whole Blood 193 mg/dL (75-99)
[2022-03-11] MEDS: HYDROcodone/APAP 5-325MG 1 EACH TAB PO PRN ×2 (11:16→22:32)
[2022-03-11 11:21] LABS: Glucose,Whole Blood 189 mg/dL (75-99)
[2022-03-11 13:47] LABS: Basophils % (A) 0 %; Eosinophils % (A) 1 %; HCT 43.3 % (39.0-53.0); HGB 13.6 gm/dL (13.0-17.5); Hypochromasia Slight; Lymphocytes # (A) 0.5 k/uL (1.0-4.8); Lymphocytes % (A) 14 %; MCHC 31.3 g/dL (31.0-37.0); Macrocytosis Slight; Mean Platelet Volume 8.1; Monocytes # (A) 0.1 k/uL (0-1.0); Monocytes % (A) 2 %; Neutrophils % (A) 82 %; RBC 4.24 m/uL (4.30-5.90); RDW 13.7 % (11.5-15.5); WBC 3.6 k/uL (3.8-10.6)
[2022-03-11 13:49] LABS: Platelet Count 63 k/uL (150-450)
[2022-03-11 13:50] LABS: INR 1.1 (<1.2); Partial Thromboplastin Time 22.1 sec (22.0-30.0); Prothrombin Time 11.8 sec (9.0-12.0)
[2022-03-11 13:54] LABS: ALT 23 U/L (4-49); AST 37 U/L (17-59); African American GFR (CKD) >90 (>60 ml/min/1.73 sqM); Albumin/Globulin Ratio 1.3; Alkaline Phosphatase 85 U/L (38-126); Anion Gap 8 mmol/L; Blood Urea Nitrogen 12 mg/dL (9-20); Calcium 8.9 mg/dL (8.4-10.2); Carbon Dioxide 25 mmol/L (22-30); Chloride 105 mmol/L (98-107); Globulin 3.2 g/dL; Glucose 200 mg/dL (74-99); Non-African American GFR(CKD) 88 (>60 ml/min/1.73 sqM); Potassium 5.3 mmol/L (3.5-5.1); Sodium 138 mmol/L (137-145); Total Bilirubin 1.3 mg/dL (0.2-1.3); Total Protein 7.2 g/dL (6.3-8.2)
--- NOTE | 2022-03-11 14:58 | CONS ---
CONSULTATION DATE OF SERVICE: 03/11/2022 REASON FOR CONSULTATION: Advice regarding diabetes and other medical issues, requested by Surgery. HISTORY OF PRESENT ILLNESS: This 76-year-old gentleman with a past medical history of COPD, diabetes mellitus, hypertension, being followed by Dr. Alayna Izaguirre in the outpatient setting, underwent laparoscopic cholecystectomy for cholelithiasis and cholecystitis. The patient is complaining of severe pain. Otherwise, there is no history of any fever, rigor or chills, no headache, loss of consciousness or seizures at this time. PAST MEDICAL HISTORY: CAD, CHF, COPD, diabetes mellitus. Others are reviewed. MEDICATIONS: Home medications are reviewed, including metformin doses and other medications are reviewed. ALLERGIES: NONE. FAMILY HISTORY: History of cancer. SOCIAL HISTORY: Previous history of smoking. REVIEW OF SYSTEMS: Fourteen-point review of systems negative except as mentioned earlier. PHYSICAL EXAMINATION: Pulse is 57, blood pressure 123/62. HEENT: Conjunctivae normal. NECK: No jugular venous distention. CARDIOVASCULAR: S1, S2 muffled. RESPIRATION: Breath sounds diminished at the bases. No rhonchi. No crackles. ABDOMEN: Soft, obese. Mild tenderness present. Postoperative. Bowel sounds diminished. LEGS: No edema. No swelling. NERVOUS SYSTEM: No focal deficit. LABS: Accu-Cheks 189. Other labs are reviewed. Preoperative labs: Platelets are diminished. Chemistry noted. Coags are noted. ASSESSMENT: 1. Status post laparoscopic cholecystectomy. 2. History of congestive heart failure. 3. Chronic obstructive pulmonary disease. 4. Diabetes mellitus. 5. Hypertension. 6. Hyperlipidemia. RECOMMENDATIONS AND DISCUSSION: In this 76-year-old gentleman who presented with multiple medical issues, at this time I recommend to continue current medications, continue symptomatic treatment. Pain management. DVT prophylaxis. Incentive spirometry. Recommend resuming the home medication. Monitor blood sugars closely. Will follow the patient closely with you. Thank you, Dr. Quiroz, for letting us participate in the care of this patient. MMODL / IJN: [id number] / MTDD
[2022-03-11 17:07] LABS: Glucose,Whole Blood 172 mg/dL (75-99)
[2022-03-11] MEDS: INSULIN ASPART (NovoLOG) 100 UNIT/ML VIAL SQ SCH ×2 (18:23→20:40)
[2022-03-11] MEDS: carvediloL 12.5 MG TAB PO SCH (18:23)
[2022-03-11 20:39] LABS: Glucose,Whole Blood 162 mg/dL (75-99)
[2022-03-12] MEDS: HYDROcodone/APAP 5-325MG 1 EACH TAB PO PRN ×2 (05:09→12:18)
[2022-03-12 06:41] LABS: Glucose,Whole Blood 146 mg/dL (75-99)
[2022-03-12] MEDS: LACTATED RINGERS 1,000 ML IV SCH (07:17)
[2022-03-12] MEDS ORDERED: INSULN ASP PRT/INSULIN ASPART 100 UNIT/ML 10 ML VIAL SQ SCH (07:30)
[2022-03-12 07:36] VITALS: RESP 17
[2022-03-12] MEDS: INSULIN ASPART (NovoLOG) 100 UNIT/ML VIAL SQ SCH ×2 (07:44→12:17)
[2022-03-12] MEDS: carvediloL 12.5 MG TAB PO SCH (07:44)
[2022-03-12] MEDS ORDERED: ENOXAPARIN 40 MG/0.4 ML SYRINGE SQ SCH (09:00)
[2022-03-12] MEDS ORDERED: ASPIRIN 81 MG PO SCH (09:00)
[2022-03-12 09:35] LABS: HCT 41.9 % (39.0-53.0); HGB 13.8 gm/dL (13.0-17.5); MCH 32.7 pg (25.0-35.0); MCHC 32.9 g/dL (31.0-37.0); MCV 99.6 fL (80.0-100.0); Mean Platelet Volume 9.1; RBC 4.21 m/uL (4.30-5.90); WBC 6.4 k/uL (3.8-10.6)
[2022-03-12 09:36] LABS: Platelet Count 76 k/uL (150-450)
[2022-03-12 09:45] LABS: African American GFR (CKD) >90 (>60 ml/min/1.73 sqM); Anion Gap 7 mmol/L; Blood Urea Nitrogen 14 mg/dL (9-20); Calcium 9.3 mg/dL (8.4-10.2); Carbon Dioxide 30 mmol/L (22-30); Chloride 102 mmol/L (98-107); Glucose 149 mg/dL (74-99); Non-African American GFR(CKD) 87 (>60 ml/min/1.73 sqM); Potassium 4.7 mmol/L (3.5-5.1); Sodium 139 mmol/L (137-145)
[2022-03-12 11:25] LABS: Glucose,Whole Blood 134 mg/dL (75-99)
--- NOTE | 2022-03-12 13:51 | P.DS ---
Providers Date of admission: 03/12/22 07:22 Expected date of discharge: 03/12/22 Attending physician: Julien Quiroz Consults: 03/11/22 09:00 Consult Physician Routine Consulting Provider: Alexandra Torres Consult Reason/Comments: Medical management Do you want consulting provider notified?: Yes Primary care physician: Carrie Izaguirre Hospital Course: Discharge diagnosis 1. Cholelithiasis and cholecystitis status post laparoscopic cholecystectomy 2. Cirrhosis of liver Hospital course This is a 76-year-old male who presented to the hospital for complaints of abdominal pain. Workup had found cholelithiasis. Patient status post laparoscopic cholecystectomy. Patient tolerated surgery well. His pain is controlled. He is up and ambulating. He is tolerating diet. He's afebrile. He is having flatus. Patient had evidence of liver cirrhosis. He has been educated to abstain from alcohol use. Patient is stable for discharge. Please refer to chart for any further details. Physician Candle Molder Hand note has been reviewed by physician. Signing provider agrees with the documented findings, assessment, and plan of care. Patient Condition at Discharge: Stable Plan - Discharge Summary Discharge Rx Participant: No New Discharge Prescriptions: New HYDROcodone/APAP 5-325MG [[place] 5-325] 1 tab PO Q6HR PRN 3 Days #12 tab PRN Reason: Pain Docusate [Colace] 100 mg PO BID #30 capsule Continue metFORMIN HCL [Glucophage] 1,000 mg PO BID Ferrous Sulfate [Iron (65 MG Elemental)] 325 mg PO DAILY Insulin NPH Hum/Reg Insulin Hm [NovoLIN 70-30 100 UNIT/ML VIAL] 20 unit SQ AC-BRKFST #0 Magnesium Oxide [Mag-Ox] 250 mg PO DAILY allopurinoL [Zyloprim] 100 mg PO QAM Carvedilol [Coreg] 12.5 mg PO BID lisinopriL [Zestril] 2.5 mg PO QAM Omeprazole 40 mg PO QAM Nitroglycerin Sl Tabs [Nitrostat] 0.4 mg SUBLINGUAL Q5M PRN PRN Reason: Chest Pain Aspirin EC [Ecotrin Low Dose] 81 mg PO DAILY Atorvastatin [Lipitor] 80 mg PO QAM Discontinued Acetaminophen Tab [Tylenol] 650 mg PO Q6H PRN PRN Reason: Pain Discharge Medication List metFORMIN HCL [Glucophage] 1,000 mg PO BID 06/07/14 [History] Ferrous Sulfate [Iron (65 MG Elemental)] 325 mg PO DAILY 03/07/16 [History] Insulin NPH Hum/Reg Insulin Hm [NovoLIN 70-30 100 UNIT/ML VIAL] 20 unit SQ AC- BRKFST #0 07/29/17 [Rx] Magnesium Oxide [Mag-Ox] 250 mg PO DAILY 07/11/19 [History] Nitroglycerin Sl Tabs [Nitrostat] 0.4 mg SUBLINGUAL Q5M PRN 07/17/21 [History] allopurinoL [Zyloprim] 100 mg PO QAM 07/17/21 [History] Carvedilol [Coreg] 12.5 mg PO BID 11/27/21 [History] Aspirin EC [Ecotrin Low Dose] 81 mg PO DAILY 02/10/22 [History] lisinopriL [Zestril] 2.5 mg PO QAM 02/10/22 [History] Atorvastatin [Lipitor] 80 mg PO QAM 03/07/22 [History] Omeprazole 40 mg PO QAM 03/07/22 [History] Docusate [Colace] 100 mg PO BID #30 capsule 03/12/22 [Rx] HYDROcodone/APAP 5-325MG [[place] 5-325] 1 tab PO Q6HR PRN 3 Days #12 tab 03/12/22 [Rx] Follow up Appointment(s)/Referral(s): Carrie Izaguirre MD [Primary Care Provider] - 1 Week Julien Quiroz MD [STAFF PHYSICIAN] - 03/19/22 1:45 pm Patient Instructions/Handouts: *Surgery [facility] - ([facility]) Laparoscopic Cholecystectomy Activity/Diet/Wound Care/Special Instructions: No driving while taking [place] No lifting over 10 pounds You may shower. No soaking or tub baths for 2 weeks Very light activity until you are reevaluated at your follow up appointment with your surgeon Discharge Disposition: HOME SELF-CARE
--- NOTE | 2022-03-12 14:21 | PN ---
PROGRESS NOTE DATE OF SERVICE: 03/12/2022 This 76-year-old gentleman who was admitted after laparoscopic cholecystectomy is improving significantly. No chest pain. No palpitations. No fever. Patient is complaining of right shoulder pain. PHYSICAL EXAMINATION: Pulse is 66, blood pressure 160/93, respiration 17. CHEST: Clear to auscultation. CARDIOVASCULAR: S1, S2 normal. ABDOMEN: Soft, status post surgery. NERVOUS SYSTEM: No focal deficit. LABS: Reviewed. ASSESSMENT: 1. Status post laparoscopic cholecystectomy. 2. History of congestive heart failure. 3. Chronic obstructive pulmonary disease. 4. Diabetes mellitus, type 2. 5. Hypertension. 6. Hyperlipidemia. RECOMMENDATIONS AND DISCUSSION: I recommend to continue current medications, continue with the monitoring, symptomatic treatment. Resume the home medications. Closely follow with primary physician. The rest of the recommendations per Surgery. Further recommendations to follow. Incentive spirometry to be continued. MMODL / IJN: [id number] /
[2022-03-12 15:33] VITALS: BP 102/66; PULSE 59; TEMP 97.5
== END 2022-03-12 15:38 | disposition home or self-care (01) ==
LOC: OR 06:05 → 4SSUR 09:30 → OR 03-12 07:16 → 4SSUR 03-12 07:22
PROVIDERS: ADMIT Surgery; ATTEND Surgery
DX: K80.10 Calculus of gallbladder with chronic cholecystitis without obstruction (principal); K74.60 Unspecified cirrhosis of liver; M25.511 Pain in right shoulder; E11.9 Type 2 diabetes mellitus without complications; I11.0 Hypertensive heart disease with heart failure; I50.22 Chronic systolic (congestive) heart failure; I25.10 Atherosclerotic heart disease of native coronary artery without angina pectoris; I25.2 Old myocardial infarction; J44.9 Chronic obstructive pulmonary disease, unspecified; E78.5 Hyperlipidemia, unspecified; K21.9 Gastro-esophageal reflux disease without esophagitis; I47.1 Supraventricular tachycardia; M10.9 Gout, unspecified; I25.5 Ischemic cardiomyopathy; D69.6 Thrombocytopenia, unspecified; H93.13 Tinnitus, bilateral; Z79.84 Long term (current) use of oral hypoglycemic drugs; Z79.4 Long term (current) use of insulin; Z79.82 Long term (current) use of aspirin; Z79.899 Other long term (current) drug therapy; Z87.01 Personal history of pneumonia (recurrent); Z87.11 Personal history of peptic ulcer disease; Z87.442 Personal history of urinary calculi; Z96.653 Presence of artificial knee joint, bilateral; Z95.5 Presence of coronary angioplasty implant and graft; Z87.891 Personal history of nicotine dependence; Z98.890 Other specified postprocedural states; Z80.9 Family history of malignant neoplasm, unspecified
CPT/HCPCS: 47562; 88304; 80053; 80048; 85025; 85027; 85610; 85730; G0378; J2250; J0330; J1100; J2710; J0690; J2405; J2001; J1650; J3010; J1170 ×2; J2704; J1644

== ENCOUNTER 2022-03-14 13:35 | Emergency (ER) | payer MEDICARE ==
[2022-03-14 13:47] VITALS: RESP 18; TEMP 98.4
[2022-03-14 15:12] LABS: INR 1.1 (<1.2); Prothrombin Time 11.5 sec (9.0-12.0)
[2022-03-14 15:17] LABS: Basophils % (A) 1 %; Eosinophils # (A) 0.1 k/uL (0-0.7); Eosinophils % (A) 3 %; HCT 38.2 % (39.0-53.0); HGB 12.7 gm/dL (13.0-17.5); Lymphocytes # (A) 0.8 k/uL (1.0-4.8); Lymphocytes % (A) 26 %; MCH 32.4 pg (25.0-35.0); MCHC 33.1 g/dL (31.0-37.0); MCV 97.7 fL (80.0-100.0); Mean Platelet Volume 8.3; Monocytes # (A) 0.2 k/uL (0-1.0); Monocytes % (A) 7 %; Neutrophils % (A) 62 %; RBC 3.91 m/uL (4.30-5.90); WBC 3.3 k/uL (3.8-10.6)
[2022-03-14 15:23] LABS: ALT 25 U/L (4-49); AST 41 U/L (17-59); African American GFR (CKD) >90 (>60 ml/min/1.73 sqM); Albumin 3.4 g/dL (3.5-5.0); Alkaline Phosphatase 73 U/L (38-126); Anion Gap 6 mmol/L; Blood Urea Nitrogen 15 mg/dL (9-20); Calcium 8.5 mg/dL (8.4-10.2); Carbon Dioxide 27 mmol/L (22-30); Chloride 104 mmol/L (98-107); Glucose 152 mg/dL (74-99); Lipase 30 U/L (23-300); Non-African American GFR(CKD) 89 (>60 ml/min/1.73 sqM); Potassium 4.2 mmol/L (3.5-5.1); Sodium 137 mmol/L (137-145); Total Bilirubin 1.3 mg/dL (0.2-1.3); Total Protein 6.2 g/dL (6.3-8.2)
--- NOTE | 2022-03-14 15:34 | ED ---
Abdominal Pain HPI - General Chief Complaint: Abdominal Pain Stated Complaint: Abd Pain Time Seen by Provider: 03/14/22 14:52 Source: patient, EMS Mode of arrival: EMS Limitations: no limitations - History of Present Illness Initial Comments: 76-year-old male with multiple medical conditions presents to the emergency department with reported right upper quadrant/right flank pain. States that the symptoms started around 10 AM this morning. He describes it as a constant cramping sensation. Patient is status post cholecystectomy which happened on by Dr. Quiroz. He was discharged home on [place]. States he attempted to take a dose at home today however it did not help his symptoms. No associated nausea, vomiting. No diarrhea. No constipation. No changes in his urination. No other alleviating, precipitating or modifying factors - Related Data Home Medications Medication Instructions Recorded Confirmed metFORMIN HCL [Glucophage] 1,000 mg PO BID 06/07/14 03/14/22 Ferrous Sulfate [Iron (65 MG 325 mg PO DAILY 03/07/16 03/14/22 Elemental)] Magnesium Oxide [Mag-Ox] 250 mg PO DAILY 07/11/19 03/14/22 Nitroglycerin Sl Tabs [Nitrostat] 0.4 mg SUBLINGUAL Q5M PRN 07/17/21 03/14/22 allopurinoL [Zyloprim] 100 mg PO DAILY 07/17/21 03/14/22 Carvedilol [Coreg] 12.5 mg PO BID 11/27/21 03/14/22 Aspirin EC [Ecotrin Low Dose] 81 mg PO DAILY 02/10/22 03/14/22 lisinopriL [Zestril] 2.5 mg PO DAILY 02/10/22 03/14/22 Atorvastatin [Lipitor] 80 mg PO DAILY 03/07/22 03/14/22 Omeprazole 40 mg PO DAILY 03/07/22 03/14/22 Previous Rx's Medication Instructions Recorded Insulin NPH Hum/Reg Insulin Hm 20 unit SQ AC-BRKFST #0 07/29/17 [NovoLIN 70-30 100 UNIT/ML VIAL] Docusate [Colace] 100 mg PO BID #30 capsule 03/12/22 HYDROcodone/APAP 5-325MG [[place] 1 tab PO Q6HR PRN 3 Days #12 tab 03/12/22 5-325] HYDROcodone/APAP 10-325MG [[place] 1 tab PO Q6H PRN #12 tab 03/14/22 10-325] Allergies Allergy/AdvReac Type Severity Reaction Status Date / Time No Known Allergies Allergy Verified 03/14/22 15:46 Review of Systems ROS Statement: Those systems with pertinent positive or pertinent negative responses have been documented in the HPI. ROS Other: All systems not noted in ROS Statement are negative. Past Medical History Past Medical History: Blood Disorder, Coronary Artery Disease (CAD), Chest Pain / Angina, Heart Failure, COPD, Diabetes Mellitus, GERD/Reflux, Hyperlipidemia, Hypertension, Myocardial Infarction (SD), Pneumonia, Supraventricular Tachycardia (SVT), Vascular Disorder Additional Past Medical History / Comment(s): Ischemic CMP, nonsustained ventriclar arrhythmia, systolic heart failure, SD x 2 in 2001, 1994, thrombocytopenia, kidney stones, gout bilateral feet/ toes, hx bilat tinnitis, stomach ulcers 2020 Last Myocardial Infarction Date:: 2001 History of Any Multi-Drug Resistant Organisms: None Reported Past Surgical History: Cardiac Ablation, Cholecystectomy, Heart Catheterization, Heart Catheterization With Stent, Joint Replacement, Orthopedic Surgery Additional Past Surgical History / Comment(s): PCIs with total 6 stents per patient, cardiac ablation-AVRNT, EPS, R knee arthroscopy, bilateral total knee replacements-L side became infected-had I&D, bilateral shoulder rotator cuff surgeries with L side done 3 times, L ankle surgery, bilateral carpal tunnel releases, colonoscopy. EGD Past Anesthesia/Blood Transfusion Reactions: No Reported Reaction Additional Past Anesthesia/Blood Transfusion Reaction / Comment(s): never had a blood tranfusion Date of Last Stent Placement:: 02/05/19 Past Psychological History: No Psychological Hx Reported Smoking Status: Former smoker Past Alcohol Use History: Occasional Past Drug Use History: None Reported - Past Family History Father History Unknown: Yes Additional Family Medical History / Comment(s): Pt does not know his father's history. His parents were when he was 6 yrs old. Mother History Unknown: Yes Family Medical History: Cancer Additional Family Medical History / Comment(s): Pt states mother had some form of cancer which she from at the age of 77yrs. General Exam Limitations: no limitations Course Vital Signs 03/14/22 03/14/22 03/14/22 13:43 14:58 16:30 Temperature 98.4 F Pulse Rate 59 L 67 62 Respiratory 18 18 18 Rate Blood Pressure 126/55 136/89 121/50 O2 Sat by Pulse 97 98 100 Oximetry - Reevaluation(s) Reevaluation #1: 03/14/22 16:[address] Richie brizuela for dc at this time Medical Decision Making - Medical Decision Making Upon arrival patient was placed into room 5. Thorough history of physical exam is performed. IV access established laboratory studies were conducted. Patient does have a pancytopenia which is chronic for him due to his history of liver cirrhosis. Lactic acid 2.6. Urinalysis is negative. CT of the abdomen and pelvis is performed which demonstrates post cholecystectomy changes. Question will small amount of blood at that location. Because of these findings I did call and speak with Dr. Li who states that these are normal postop findings. Patient is reevaluated and pain is controlled after 4 mg of morphine. I did discuss diagnosis, differential treatment options. Patient feels comfortable with discharge home at this time. Instructed that he needs to call and make an appointment with Dr. Quiroz for follow-up in his office. He will be placed on [place] 10 mg at home as his pain has been persistent on the [place] fives. Instructed to return for any new or worsening symptoms. Patient agreed and was discharged home in stable condition - Lab Data Result diagrams: 03/14/22 14:55 03/14/22 14:55 Lab Results 03/14/22 03/14/22 03/14/22 Range/Units 14:55 14:55 14:55 WBC 3.3 L (3.8-10.6) k/uL RBC 3.91 L (4.30-5.90) m/uL Hgb 12.7 L (13.0-17.5) gm/dL Hct 38.2 L (39.0-53.0) % MCV 97.7 (80.0-100.0) fL MCH 32.4 (25.0-35.0) pg MCHC 33.1 (31.0-37.0) g/dL RDW 14.0 (11.5-15.5) % Plt Count 58 L (150-450) k/uL MPV 8.3 Neutrophils % 62 % Lymphocytes % 26 % Monocytes % 7 % Eosinophils % 3 % Basophils % 1 % Neutrophils # 2.0 (1.3-7.7) k/uL Lymphocytes # 0.8 L (1.0-4.8) k/uL Monocytes # 0.2 (0-1.0) k/uL Eosinophils # 0.1 (0-0.7) k/uL Basophils # 0.0 (0-0.2) k/uL Manual Slide Review Performed RBC Morphology Normal PT (9.0-12.0) sec INR (<1.2) APTT (22.0-30.0) sec Sodium 137 (137-145) mmol/L Potassium 4.2 (3.5-5.1) mmol/L Chloride 104 (98-107) mmol/L Carbon Dioxide 27 (22-30) mmol/L Anion Gap 6 mmol/L BUN 15 (9-20) mg/dL Creatinine 0.78 (0.66-1.25) mg/dL Est GFR (CKD-EPI)AfAm >90 (>60 ml/min/1.73 sqM) Est GFR (CKD-EPI)NonAf 89 (>60 ml/min/1.73 sqM) Glucose 152 H (74-99) mg/dL Lactic Ac Sepsis Rflx Plasma Lactic Acid Evgeny (0.7-2.0) mmol/L Calcium 8.5 (8.4-10.2) mg/dL Total Bilirubin 1.3 (0.2-1.3) mg/dL AST 41 (17-59) U/L ALT 25 (4-49) U/L Alkaline Phosphatase 73 (38-126) U/L Total Protein 6.2 L (6.3-8.2) g/dL Albumin 3.4 L (3.5-5.0) g/dL Lipase 30 (23-300) U/L Urine Color Yellow Urine Appearance Clear (Clear) Urine pH 7.0 (5.0-8.0) Ur Specific [place] 1.023 (1.001-1.035) Urine Protein Negative (Negative) Urine Glucose (UA) Negative (Negative) Urine Ketones Negative (Negative) Urine Blood Negative (Negative) Urine Nitrite Negative (Negative) Urine Bilirubin Negative (Negative) Urine Urobilinogen 3.0 (<2.0) mg/dL Ur Leukocyte Esterase Negative (Negative) 03/14/22 03/14/22 03/14/22 Range/Units 14:55 14:55 15:24 WBC (3.8-10.6) k/uL RBC (4.30-5.90) m/uL Hgb (13.0-17.5) gm/dL Hct (39.0-53.0) % MCV (80.0-100.0) fL MCH (25.0-35.0) pg MCHC (31.0-37.0) g/dL RDW (11.5-15.5) % Plt Count (150-450) k/uL MPV Neutrophils % % Lymphocytes % % Monocytes % % Eosinophils % % Basophils % % Neutrophils # (1.3-7.7) k/uL Lymphocytes # (1.0-4.8) k/uL Monocytes # (0-1.0) k/uL Eosinophils # (0-0.7) k/uL Basophils # (0-0.2) k/uL Manual Slide Review RBC Morphology PT 11.5 (9.0-12.0) sec INR 1.1 (<1.2) APTT 23.0 (22.0-30.0) sec Sodium (137-145) mmol/L Potassium (3.5-5.1) mmol/L Chloride (98-107) mmol/L Carbon Dioxide (22-30) mmol/L Anion Gap mmol/L BUN (9-20) mg/dL Creatinine (0.66-1.25) mg/dL Est GFR (CKD-EPI)AfAm (>60 ml/min/1.73 sqM) Est GFR (CKD-EPI)NonAf (>60 ml/min/1.73 sqM) Glucose (74-99) mg/dL Lactic Ac Sepsis Rflx Y Plasma Lactic Acid Evgeny 2.6 H* (0.7-2.0) mmol/L Calcium (8.4-10.2) mg/dL Total Bilirubin (0.2-1.3) mg/dL AST (17-59) U/L ALT (4-49) U/L Alkaline Phosphatase (38-126) U/L Total Protein (6.3-8.2) g/dL Albumin (3.5-5.0) g/dL Lipase (23-300) U/L Urine Color Urine Appearance (Clear) Urine pH (5.0-8.0) Ur Specific [place] (1.001-1.035) Urine Protein (Negative) Urine Glucose (UA) (Negative) Urine Ketones (Negative) Urine Blood (Negative) Urine Nitrite (Negative) Urine Bilirubin (Negative) Urine Urobilinogen (<2.0) mg/dL Ur Leukocyte Esterase (Negative) - EKG Data EKG Comments: EKG demonstrates sinus rhythm with a rate of 64. OH interval 202. QRS 141. QTC of 464. No acute ST segment elevations. Inverted T-wave in 2, 3, aVF with biphasic T waves in V2 through V5 Disposition Clinical Impression: Abdominal pain, S/P cholecystectomy Disposition: HOME SELF-CARE Condition: Stable Instructions (If sedation given, give patient instructions): Abdominal Pain (ED) Additional Instructions: Please take the pain medications as directed and follow-up with Dr. Quiroz. Call his office in the morning to make an appointment. Return for any new or worsening symptoms Prescriptions: HYDROcodone/APAP 10-325MG [[place] 10-325] 1 tab PO Q6H PRN #12 tab PRN Reason: pain Is patient prescribed a controlled substance at d/c from ED?: Yes When asked, does pt state using other controlled substances?: Yes If prescribed controlled substance>3 days was MAPS reviewed?: Prescribed <3 Days Referrals: Carrie Izaguirre MD [Primary Care Provider] - 1-2 days Julien Quiroz MD [STAFF PHYSICIAN] - 1-2 days Time of Disposition: 17:15
[2022-03-14 15:35] LABS: Appearance,Urine Clear (Clear); Bilirubin,Urine Negative (Negative); Blood,Urine Negative (Negative); Color,Urine Yellow; Glucose,Urine (UA) Negative (Negative); Ketones,Urine Negative (Negative); Leukocyte Esterase,Urine Negative (Negative); Nitrite,Urine Negative (Negative); Protein,Urine Negative (Negative); Specific Gravity,Urine 1.023 (1.001-1.035)
[2022-03-14] MEDS ORDERED: MORPHINE SULFATE 4 MG/ML SYRINGE IVP STA (16:03)
[2022-03-14 16:12] LABS: RBC Morphology Normal
[2022-03-14 16:17] LABS: Platelet Count 58 k/uL (150-450)
[2022-03-14 16:33] VITALS: BP 121/50; PULSE 62
--- NOTE | 2022-03-14 16:36 | CT ---
EXAMINATION TYPE: CT abdomen pelvis w con DATE OF EXAM: 03/14/2022 COMPARISON: CT dated 02/24/2022 HISTORY: abdominal pain post-op fide CT DLP: 2740.9 mGycm Automated exposure control for dose reduction was used. TECHNIQUE: Helical acquisition of images was performed from the lung bases through the pelvis. CONTRAST: Performed without Oral Contrast and with IV Contrast, patient injected with 100 mL of Isovue 300. FINDINGS: LUNG BASES: Coronary arterial calcification. Suspected cardiomegaly. LIVER/GB: Nodular outline of the liver with enlarged left hepatic lobe suggestive of cirrhotic hepati c changes. No definite hepatic focal lesion. Cholecystectomy with small amount of fluid and fat stran ding seen at the cholecystectomy bed, possibly related to postoperative changes. Subtle hyperdensity is also seen at that location which could represent small amount of blood. No marginally enhancing co llection to suggest abscess formation. PANCREAS: No significant abnormality is seen. SPLEEN: Enlarged spleen measuring 16.3 cm without definite splenic focal lesion. ADRENALS: No significant abnormality is seen. KIDNEYS: 16 mm left lower posterior renal cyst, appreciated previously. Unremarkable kidneys otherwis e. FREE AIR: No free air is visualized. RETROPERITONEAL ADENOPATHY: None visualized REPRODUCTIVE ORGANS: No significant abnormality is seen URINARY BLADDER: Nondistended PELVIC ADENOPATHY: None visualized. OSSEOUS STRUCTURES: Degenerative changes of the lower thoracic and lumbar spine. No aggressive bone lesion. BOWEL: Unremarkable nondistended stomach, duodenum and small bowel. Colonic diverticulosis most evid ent involving the sigmoid colon and descending colon. Segments of colonic wall thickening mainly in t he sigmoid colon, please correlate with colonoscopy results. OTHER: Scattered arterial atherosclerotic calcifications. Infrarenal abdominal aortic ectasia measuri ng up to 2.7 cm. Small amount of fluid is seen adjacent to the liver. Bilateral fat-containing inguin al hernias. Body wall subcutaneous fat stranding and edema. IMPRESSION: 1. The described changes at the cholecystectomy bed could be related to acute postoperative changes w ith questionable small amount of blood at that location. No marginally enhancing collection or soft t issue gas to suggest abscess formation. 2. Suspected hepatic cirrhosis and splenomegaly, please correlate with liver function tests/hepatic v iral serology. Other incidental findings as described above.
== END 2022-03-14 17:35 | disposition home or self-care (01) ==
LOC: EC 13:35
DX: R10.11 Right upper quadrant pain (principal); I25.10 Atherosclerotic heart disease of native coronary artery without angina pectoris; I11.0 Hypertensive heart disease with heart failure; I50.9 Heart failure, unspecified; J44.9 Chronic obstructive pulmonary disease, unspecified; E11.9 Type 2 diabetes mellitus without complications; K21.9 Gastro-esophageal reflux disease without esophagitis; E78.5 Hyperlipidemia, unspecified; I25.2 Old myocardial infarction; Z90.49 Acquired absence of other specified parts of digestive tract; Z79.84 Long term (current) use of oral hypoglycemic drugs; Z79.82 Long term (current) use of aspirin; Z79.4 Long term (current) use of insulin; Z87.442 Personal history of urinary calculi; Z96.653 Presence of artificial knee joint, bilateral; Z87.891 Personal history of nicotine dependence
CPT/HCPCS: 99284; 96374; 36415; 93005; 80053; 83605; 83690; 85025; 85610; 85730; 81003; 74177; J2270; Q9967

== ENCOUNTER 2022-05-05 17:53 | Emergency (ER) | payer MEDICARE ==
[2022-05-05 18:06] VITALS: RESP 18
[2022-05-05] MEDS ORDERED: diphenhydrAMINE 50 MG/ML 1 ML VIAL IVP STA (18:16)
[2022-05-05] MEDS ORDERED: ONDANSETRON 4 MG/2 ML VIAL IVP STA (18:16)
[2022-05-05] MEDS ORDERED: SODIUM CHLORIDE 0.9% 1,000 ML IV STA (18:16)
[2022-05-05] MEDS ORDERED: PANTOPRAZOLE 40 MG/10 ML VIAL IVP STA (18:16)
[2022-05-05] MEDS ORDERED: MORPHINE SULFATE 4 MG/ML SYRINGE IV STA (18:16)
--- NOTE | 2022-05-05 18:23 | ED ---
General Adult HPI - General Chief complaint: Abdominal Pain Stated complaint: Abd pain Time Seen by Provider: 05/05/22 18:06 Source: patient, EMS, RN notes reviewed, old records reviewed Mode of arrival: EMS Limitations: no limitations - History of Present Illness Initial comments: Patient is a 76-year-old male with past medical history remarkable for diabetes, COPD, heart failure, hypertension, cholecystectomy a few months ago who presents emergency Department complaining of a one-day history of sudden onset right- sided midabdominal pain. Discussed the pain as a cramping sensation. Denies any change in stooling habits. Denies constipation. Endorses nausea but denies any history of emesis for the last day. Denies any chest pain, shortness of breath, fevers. Denies any urinary complaints. No history of urinary stones. Also has a history of many gastric ulcers which he states have been asymptomatic since discovery when he had a cholecystectomy. States this pain is different than that pain. His no other acute complaints at this time. He is sitting comfortably upright in bed at this time. Patient presents for evaluation of the pain. - Related Data Home Medications Medication Instructions Recorded Confirmed metFORMIN HCL [Glucophage] 1,000 mg PO BID 06/07/14 03/14/22 Ferrous Sulfate [Iron (65 MG 325 mg PO DAILY 03/07/16 03/14/22 Elemental)] Magnesium Oxide [Mag-Ox] 250 mg PO DAILY 07/11/19 03/14/22 Nitroglycerin Sl Tabs [Nitrostat] 0.4 mg SUBLINGUAL Q5M PRN 07/17/21 03/14/22 allopurinoL [Zyloprim] 100 mg PO DAILY 07/17/21 03/14/22 Carvedilol [Coreg] 12.5 mg PO BID 11/27/21 03/14/22 Aspirin EC [Ecotrin Low Dose] 81 mg PO DAILY 02/10/22 03/14/22 lisinopriL [Zestril] 2.5 mg PO DAILY 02/10/22 03/14/22 Atorvastatin [Lipitor] 80 mg PO DAILY 03/07/22 03/14/22 Omeprazole 40 mg PO DAILY 03/07/22 03/14/22 Previous Rx's Medication Instructions Recorded Insulin NPH Hum/Reg Insulin Hm 20 unit SQ -BRKFST #0 09/05/17 [NovoLIN 70-30 100 UNIT/ML VIAL] Docusate [Colace] 100 mg PO BID #30 capsule 03/12/22 HYDROcodone/APAP 5-325MG [[place] 1 tab PO Q6HR PRN 3 Days #12 tab 03/12/22 5-325] HYDROcodone/APAP 10-325MG [[place] 1 tab PO Q6H PRN #12 tab 03/14/22 10-325] Famotidine [Pepcid] 20 mg PO DAILY 7 Days #7 tablet 05/05/22 Mag Hydrox/Al Hydrox/Simeth 30 ml PO BID PRN #500 ml 05/05/22 [Maalox] Ondansetron Odt [Zofran Odt] 4 mg PO Q8HR PRN 3 Days #9 tab 05/05/22 Allergies Allergy/AdvReac Type Severity Reaction Status Date / Time No Known Allergies Allergy Verified 03/14/22 15:46 Review of Systems ROS Statement: Those systems with pertinent positive or pertinent negative responses have been documented in the HPI. Review of Systems: CONST: Denies fever EYES: Denies blurry vision ENT: Denies nasal congestion C/V: Denies Chest pain RESP: Denies shortness of breath GI: Endorses abdominal pain : Denies dysuria SKIN: Denies rash. MSK: Denies joint pain. NEURO: Denies headache ROS Other: All systems not noted in ROS Statement are negative. Past Medical History Past Medical History: Blood Disorder, Coronary Artery Disease (CAD), Chest Pain / Angina, Heart Failure, COPD, Diabetes Mellitus, GERD/Reflux, Hyperlipidemia, Hypertension, Myocardial Infarction (IA), Pneumonia, Supraventricular Tachycardia (SVT), Vascular Disorder Additional Past Medical History / Comment(s): Ischemic CMP, nonsustained ventriclar arrhythmia, systolic heart failure, IA x 2 in 2001, 1994, thrombocytopenia, kidney stones, gout bilateral feet/ toes, hx bilat tinnitis, stomach ulcers 2020 Last Myocardial Infarction Date:: 2001 History of Any Multi-Drug Resistant Organisms: None Reported Past Surgical History: Cardiac Ablation, Cholecystectomy, Heart Catheterization, Heart Catheterization With Stent, Joint Replacement, Orthopedic Surgery Additional Past Surgical History / Comment(s): PCIs with total 6 stents per patient, cardiac ablation-AVRNT, EPS, R knee arthroscopy, bilateral total knee replacements-L side became infected-had I&D, bilateral shoulder rotator cuff surgeries with L side done 3 times, L ankle surgery, bilateral carpal tunnel releases, colonoscopy. EGD Past Anesthesia/Blood Transfusion Reactions: No Reported Reaction Additional Past Anesthesia/Blood Transfusion Reaction / Comment(s): never had a blood tranfusion Date of Last Stent Placement:: 02/05/19 Past Psychological History: No Psychological Hx Reported Smoking Status: Former smoker Past Alcohol Use History: Occasional Past Drug Use History: None Reported - Past Family History Father History Unknown: Yes Additional Family Medical History / Comment(s): Pt does not know his father's history. His parents were when he was 6 yrs old. Mother History Unknown: Yes Family Medical History: Cancer Additional Family Medical History / Comment(s): Pt states mother had some form of cancer which she from at the age of 77yrs. General Exam - General Exam Comments Initial Comments: General: Appears in no acute distress. HEAD: Normal with no signs of head trauma. EYES: PERRLA, EOMI, conjunctiva normal, no discharge. ENT: Hearing grossly intact, normal oropharynx. RESPIRATORY: Clear breath sounds bilaterally. No wheezes, rales, or rhonchi. C/V: Regular rate and rhythm. S1 and S2 auscultated, no edema, peripheral pu lses 2+ and intact throughout ABD: Soft, nondistended. Patient is mainly tender to palpation in the mid quadrant on the right side of his abdomen. No guarding. No peritoneal signs. No rebound tenderness. EXT: Normal range of motion, no obvious deformity SKIN: No rashes or lesions observed on exposed skin. NEURO: Alert and oriented 4. Limitations: no limitations Course Vital Signs 05/05/22 17:55 Temperature 98.1 F Pulse Rate 74 Respiratory 18 Rate Blood Pressure 109/49 O2 Sat by Pulse 98 Oximetry Medical Decision Making - Medical Decision Making Based on the patient's presentation and physical exam, he is presenting for evaluation of acute onset of right-sided mid abdominal pain. At a cholecystectomy approximately 2 months ago. Has been relatively asymptomatic since. We'll obtain basic abdominal laboratories studies, as well as urine. He'll be sent likely treated with IV fluids, antiemetics, analgesia. We'll likely obtain a CT of the pelvis as well. Patient was in agreement this plan. Patient's laboratory studies are remarkable for normal kidney function. Bilirubin is slightly elevated to 1.9. Remaining LFTs are unremarkable. Patient does have a history of chronic liver disease based on prior notes. Remainder of the labs are unremarkable. Urine is still pending at this time. Lactic acid is mildly elevated at 2.4 likely secondary to nausea mild dehydration from decreased appetite and oral intake over the last 1-2 days. Patient is receiving IV fluids for this. Remainder the patient's labs are unremarkable. Patient cannot provide a urine sample. CT abdomen and pelvis revealed mild duodenitis. No other findings. On reevaluation, patient is feeling improved. I discussed with him the results of his laboratory studies and imaging. Stable for him to be discharged home with close follow up with his PCP. He was in agreement this plan. Recommended a bland diet for the time being. Will be given outpatient prescriptions. May require repeat EGD at some point if needed. Patient expressed understanding. He was in agreement with this plan. I will provide the patient with a prescription for Maalox, famotidine, ODT Zofran. I instructed the patient to follow up with their PCP in the next 3 days. I explained that the patient should return to the emergency department if they experience any worsening symptoms. Strict return precautions were discussed with the patient. The patient expressed understanding of these instructions. I answered all questions that the patient had. The patient was discharged home in good condition with their prescriptions and follow up information. - Lab Data Result diagrams: 05/05/22 18:26 05/05/22 18:26 Lab Results 05/05/22 05/05/22 05/05/22 Range/Units 18:26 18:26 18:26 WBC 5.6 (3.8-10.6) k/uL RBC 4.24 L (4.30-5.90) m/uL Hgb 13.7 (13.0-17.5) gm/dL Hct 41.8 (39.0-53.0) % MCV 98.6 (80.0-100.0) fL MCH 32.4 (25.0-35.0) pg MCHC 32.8 (31.0-37.0) g/dL RDW 14.6 (11.5-15.5) % Plt Count 73 L (150-450) k/uL MPV 8.2 Neutrophils % 68 % Lymphocytes % 21 % Monocytes % 6 % Eosinophils % 2 % Basophils % 1 % Neutrophils # 3.8 (1.3-7.7) k/uL Lymphocytes # 1.2 (1.0-4.8) k/uL Monocytes # 0.3 (0-1.0) k/uL Eosinophils # 0.1 (0-0.7) k/uL Basophils # 0.0 (0-0.2) k/uL Manual Slide Review Performed RBC Morphology Normal PT 11.0 (9.0-12.0) sec INR 1.0 (<1.2) APTT 22.8 (22.0-30.0) sec Sodium 138 (137-145) mmol/L Potassium 4.4 (3.5-5.1) mmol/L Chloride 105 (98-107) mmol/L Carbon Dioxide 25 (22-30) mmol/L Anion Gap 8 mmol/L BUN 13 (9-20) mg/dL Creatinine 0.81 (0.66-1.25) mg/dL Est GFR (CKD-EPI)AfAm >90 (>60 ml/min/1.73 sqM) Est GFR (CKD-EPI)NonAf 88 (>60 ml/min/1.73 sqM) Glucose 134 H (74-99) mg/dL Plasma Lactic Acid Evgeny (0.7-2.0) mmol/L Calcium 9.0 (8.4-10.2) mg/dL Total Bilirubin 1.9 H (0.2-1.3) mg/dL AST 32 (17-59) U/L ALT 24 (4-49) U/L Alkaline Phosphatase 82 (38-126) U/L Total Protein 6.7 (6.3-8.2) g/dL Albumin 4.0 (3.5-5.0) g/dL Amylase 37 (30-110) U/L Lipase 45 (23-300) U/L 05/05/22 Range/Units 18:26 WBC (3.8-10.6) k/uL RBC (4.30-5.90) m/uL Hgb (13.0-17.5) gm/dL Hct (39.0-53.0) % MCV (80.0-100.0) fL MCH (25.0-35.0) pg MCHC (31.0-37.0) g/dL RDW (11.5-15.5) % Plt Count (150-450) k/uL MPV Neutrophils % % Lymphocytes % % Monocytes % % Eosinophils % % Basophils % % Neutrophils # (1.3-7.7) k/uL Lymphocytes # (1.0-4.8) k/uL Monocytes # (0-1.0) k/uL Eosinophils # (0-0.7) k/uL Basophils # (0-0.2) k/uL Manual Slide Review RBC Morphology PT (9.0-12.0) sec INR (<1.2) APTT (22.0-30.0) sec Sodium (137-145) mmol/L Potassium (3.5-5.1) mmol/L Chloride (98-107) mmol/L Carbon Dioxide (22-30) mmol/L Anion Gap mmol/L BUN (9-20) mg/dL Creatinine (0.66-1.25) mg/dL Est GFR (CKD-EPI)AfAm (>60 ml/min/1.73 sqM) Est GFR (CKD-EPI)NonAf (>60 ml/min/1.73 sqM) Glucose (74-99) mg/dL Plasma Lactic Acid Evgeny 2.4 H* (0.7-2.0) mmol/L Calcium (8.4-10.2) mg/dL Total Bilirubin (0.2-1.3) mg/dL AST (17-59) U/L ALT (4-49) U/L Alkaline Phosphatase (38-126) U/L Total Protein (6.3-8.2) g/dL Albumin (3.5-5.0) g/dL Amylase (30-110) U/L Lipase (23-300) U/L Disposition Clinical Impression: Duodenitis Disposition: HOME SELF-CARE Condition: Good Instructions (If sedation given, give patient instructions): Duodenitis (ED) Prescriptions: Mag Hydrox/Al Hydrox/Simeth [Maalox] 30 ml PO BID PRN #500 ml PRN Reason: Dyspepsia Famotidine [Pepcid] 20 mg PO DAILY 7 Days #7 tablet Ondansetron Odt [Zofran Odt] 4 mg PO Q8HR PRN 3 Days #9 tab PRN Reason: Nausea Is patient prescribed a controlled substance at d/c from ED?: No Referrals: Carrie Izaguirre MD [Primary Care Provider] - 1-2 days Time of Disposition: 20:07
[2022-05-05 18:49] LABS: Basophils % (A) 1 %; Eosinophils # (A) 0.1 k/uL (0-0.7); Eosinophils % (A) 2 %; HCT 41.8 % (39.0-53.0); HGB 13.7 gm/dL (13.0-17.5); Lymphocytes # (A) 1.2 k/uL (1.0-4.8); Lymphocytes % (A) 21 %; MCH 32.4 pg (25.0-35.0); MCHC 32.8 g/dL (31.0-37.0); MCV 98.6 fL (80.0-100.0); Mean Platelet Volume 8.2; Monocytes # (A) 0.3 k/uL (0-1.0); Monocytes % (A) 6 %; Neutrophils # (A) 3.8 k/uL (1.3-7.7); Neutrophils % (A) 68 %; RBC 4.24 m/uL (4.30-5.90); RDW 14.6 % (11.5-15.5); WBC 5.6 k/uL (3.8-10.6)
[2022-05-05 18:54] LABS: Partial Thromboplastin Time 22.8 sec (22.0-30.0)
[2022-05-05 19:00] LABS: ALT 24 U/L (4-49); AST 32 U/L (17-59); African American GFR (CKD) >90 (>60 ml/min/1.73 sqM); Alkaline Phosphatase 82 U/L (38-126); Amylase 37 U/L (30-110); Anion Gap 8 mmol/L; Blood Urea Nitrogen 13 mg/dL (9-20); Carbon Dioxide 25 mmol/L (22-30); Chloride 105 mmol/L (98-107); Glucose 134 mg/dL (74-99); Lipase 45 U/L (23-300); Non-African American GFR(CKD) 88 (>60 ml/min/1.73 sqM); Potassium 4.4 mmol/L (3.5-5.1); Sodium 138 mmol/L (137-145); Total Bilirubin 1.9 mg/dL (0.2-1.3); Total Protein 6.7 g/dL (6.3-8.2)
[2022-05-05 19:18] LABS: Platelet Count 73 k/uL (150-450)
[2022-05-05 19:19] LABS: RBC Morphology Normal
--- NOTE | 2022-05-05 19:57 | CT ---
EXAMINATION TYPE: CT abdomen pelvis w con DATE OF EXAM: 05/05/2022 COMPARISON: 03/14/2022 HISTORY: Abdominal pain CT DLP: 2667.4 mGycm Automated exposure control for dose reduction was used. CONTRAST: Performed with IV Contrast, patient injected with 100 mL of Isovue 300. The lung bases are clear. No pleural effusion. Heart size is normal. No pericardial effusion. Liver spleen and stomach pancreas appear intact. Gallbladder is absent. There is no adrenal mass. Bile ducts are not dilated. There is some minimal stranding in the right up per quadrant around the gallbladder bed. There is no adrenal mass. Kidneys are of normal size. No hydronephrosis. Ureters are not dilated. The re is 2 cm cortical cyst posterior left kidney. There is 2 mm calculus medial left kidney. There is s ome renal vascular calcification. There is no retroperitoneal adenopathy. Bladder distends smoothly. No inguinal hernia. No free fluid in the pelvis. There are multiple sigmoid diverticula. No diverticu litis. Appendix not seen. No sign of thickened appendix. There is no ascites or free air. No bowel obstruction. The lumbar vertebrae have normal alignment. Th ere is vacuum disc at L4-5 and L5-S1. No compression fracture. The bony pelvis appears intact. Hip nataliia ints are intact. IMPRESSION: There is some mild stranding around the proximal duodenum and at the gallbladder bed that appears new compared to old exam. This could relate to some duodenitis. No fluid collection seen to suggest a bi le leak. No dilated ducts. Sigmoid diverticulosis without diverticulitis.
[2022-05-05] MEDS ORDERED: MAG HYDROX/AL HYDROX/SIMETH 30 ML CUP PO STA (20:00)
[2022-05-05] MEDS ORDERED: KETOROLAC 15 MG/ML 1 ML VIAL IVP STA (20:00)
[2022-05-05 21:00] VITALS: BP 121/57; PULSE 67; TEMP 98.3
== END 2022-05-05 21:39 | disposition home or self-care (01) ==
LOC: EC 17:53
DX: K29.80 Duodenitis without bleeding (principal); I25.10 Atherosclerotic heart disease of native coronary artery without angina pectoris; K21.9 Gastro-esophageal reflux disease without esophagitis; E78.5 Hyperlipidemia, unspecified; I10 Essential (primary) hypertension; Z87.891 Personal history of nicotine dependence; Z79.82 Long term (current) use of aspirin; Z79.83 Long term (current) use of bisphosphonates
CPT/HCPCS: 36415; 80053; 82150; 83605; 83690; 85025; 85610; 85730; 74177; 99284; 96374; 96375; 96361; J2270; J1200; J2405; C9113; Q9967

== ENCOUNTER → 2022-09-20 | Outpatient (CLI) | payer MEDICARE ==
--- NOTE | 2022-09-20 14:00 | US ---
EXAMINATION TYPE: US venous doppler duplex LE LT DATE OF EXAM: 09/20/2022 1:52 PM COMPARISON: US CLINICAL HISTORY: M79.89 OTHER SPECIFIED SOFT TISSUE DISORDERS. Left leg swelling SIDE PERFORMED: Left TECHNIQUE: The lower extremity deep venous system is examined utilizing real time linear array sonog ilana with graded compression, doppler sonography and color-flow sonography. VESSELS IMAGED: Common Femoral Vein Deep Femoral Vein Greater Saphenous Vein * Femoral Vein Popliteal Vein Small Saphenous Vein * Proximal Calf Veins (* superficial vessels) Left Leg: Negative for DVT Results called to Gala at Dr's office at time of exam IMPRESSION: No evidence for DVT at this time.
== END | disposition home or self-care (01) ==
LOC: RADUSWWP 13:31
PROVIDERS: ATTEND Family Medicine
DX: M79.89 Other specified soft tissue disorders (principal)

== ENCOUNTER 2022-10-09 09:21 | Emergency (ER) | payer MEDICARE ==
[2022-10-09 09:29] VITALS: RESP 18
[2022-10-09] MEDS ORDERED: SODIUM CHLORIDE 0.9% 500 ML 500 ML IV ONE (09:38)
[2022-10-09] MEDS ORDERED: HYDROmorphone 0.5 MG/0.5 ML SYRINGE IVP STA ×2 (09:38→11:11)
--- NOTE | 2022-10-09 09:42 | ED ---
Abdominal Pain HPI - General Chief Complaint: Abdominal Pain Stated Complaint: Abd pain Time Seen by Provider: 10/09/22 09:30 Source: patient, EMS, RN notes reviewed, old records reviewed Mode of arrival: EMS Limitations: no limitations - History of Present Illness Initial Comments: 77-year-old male presents to the emergency room with complaints of left lower quadrant pain since last night. Denies any fevers, no nausea vomiting or diarrhea. Normal bowel movement yesterday. He has not eaten anything today. States it is sharp in nature and worse with palpation. Patient has a history of diabetes, GERD, diverticulosis, hyperlipidemia, hypertension, coronary artery disease, heart failure, and COPD. Surgical history of cholecystectomy and multiple cardiac stents. Takes an aspirin a day, no other blood thinners. MD Complaint: abdominal pain -: days(s) (1) Location: LLQ Radiation: LUQ Severity scale (1-10): 8 Quality: sharp Consistency: constant Improves With: nothing Worsens With: other (palpation) Associated Symptoms: denies other symptoms - Related Data Home Medications Medication Instructions Recorded Confirmed metFORMIN HCL [Glucophage] 1,000 mg PO BID 06/07/14 10/09/22 Ferrous Sulfate [Iron (65 MG 325 mg PO DAILY 03/07/16 10/09/22 Elemental)] Magnesium Oxide [Mag-Ox] 250 mg PO DAILY 07/11/19 10/09/22 Nitroglycerin Sl Tabs [Nitrostat] 0.4 mg SUBLINGUAL Q5M PRN 07/17/21 10/09/22 allopurinoL [Zyloprim] 100 mg PO DAILY 07/17/21 10/09/22 carvediloL [Coreg] 12.5 mg PO BID 11/27/21 10/09/22 Aspirin EC [Ecotrin Low Dose] 81 mg PO DAILY 02/10/22 10/09/22 lisinopriL [Zestril] 2.5 mg PO DAILY 02/10/22 10/09/22 Atorvastatin [Lipitor] 80 mg PO DAILY 03/07/22 10/09/22 Insulin NPH Hum/Reg Insulin Hm 20 unit SQ DAILY 10/09/22 10/09/22 [NovoLIN 70-30 100 UNIT/ML VIAL] Previous Rx's Medication Instructions Recorded Amoxicillin/Potassium Clav 1 tab PO Q12H 5 Days #10 tab 11/16/22 [Augmentin Xr 1,000-62.5 Tab] Allergies Allergy/AdvReac Type Severity Reaction Status Date / Time No Known Allergies Allergy Verified 10/09/22 10:54 Review of Systems ROS Statement: Those systems with pertinent positive or pertinent negative responses have been documented in the HPI. ROS Other: All systems not noted in ROS Statement are negative. Past Medical History Past Medical History: Blood Disorder, Coronary Artery Disease (CAD), Chest Pain / Angina, Heart Failure, COPD, Diabetes Mellitus, GERD/Reflux, Hyperlipidemia, Hypertension, Myocardial Infarction (NM), Pneumonia, Supraventricular Tachycardia (SVT), Vascular Disorder Additional Past Medical History / Comment(s): Ischemic CMP, nonsustained ventriclar arrhythmia, systolic heart failure, [place] x 2 in 2001, 1994, thrombocytopenia, kidney stones, gout bilateral feet/ toes, hx bilat tinnitis, stomach ulcers 2020 Last Myocardial Infarction Date:: 2001 History of Any Multi-Drug Resistant Organisms: None Reported Past Surgical History: Cardiac Ablation, Cholecystectomy, Heart Catheterization, Heart Catheterization With Stent, Joint Replacement, Orthopedic Surgery Additional Past Surgical History / Comment(s): PCIs with total 6 stents per patient, cardiac ablation-AVRNT, EPS, R knee arthroscopy, bilateral total knee replacements-L side became infected-had I&D, bilateral shoulder rotator cuff surgeries with L side done 3 times, L ankle surgery, bilateral carpal tunnel releases, colonoscopy. EGD Past Anesthesia/Blood Transfusion Reactions: No Reported Reaction Additional Past Anesthesia/Blood Transfusion Reaction / Comment(s): never had a blood tranfusion Date of Last Stent Placement:: 02/05/19 Past Psychological History: No Psychological Hx Reported Smoking Status: Former smoker Past Alcohol Use History: Occasional Past Drug Use History: None Reported - Past Family History Father History Unknown: Yes Additional Family Medical History / Comment(s): Pt does not know his father's history. His parents were when he was 6 yrs old. Mother History Unknown: Yes Family Medical History: Cancer Additional Family Medical History / Comment(s): Pt states mother had some form of cancer which she from at the age of 77yrs. General Exam Limitations: no limitations General appearance: alert, in no apparent distress Head exam: Present: atraumatic Eye exam: Absent: scleral icterus, conjunctival injection ENT exam: Present: mucous membranes moist Neck exam: Absent: tenderness, meningismus, lymphadenopathy Respiratory exam: Absent: respiratory distress, accessory muscle use Cardiovascular Exam: Present: regular rate GI/Abdominal exam: Present: soft, distended, tenderness (Left upper and left lower quadrants). Absent: rigid Extremities exam: Present: normal capillary refill. Absent: tenderness, pedal edema Back exam: Absent: tenderness, CVA tenderness (R), CVA tenderness (L), rash noted Neurological exam: Present: alert, oriented X3 Psychiatric exam: Present: normal affect, normal mood Skin exam: Present: warm, dry, normal color. Absent: cyanosis, diaphoretic, petechiae, pallor Course Vital Signs 10/09/22 10/09/22 09:22 11:49 Temperature 97.6 F 98 F Pulse Rate 75 63 Respiratory 18 18 Rate Blood Pressure 144/76 114/68 O2 Sat by Pulse 97 95 Oximetry Medical Decision Making - Medical Decision Making Patient's lactic acid is 2.2 he was given 500 mL bolus. Due to his history of heart failure, IV fluids given at a restricted rate. CT abdomen and pelvis interpreted by me showing diverticulitis left sigmoid colo n. Radiologist interpretation is uncomplicated mild diverticulitis left upper pelvis near the junction of the left and sigmoid colon. Portal venous hypertension and splenomegaly redemonstrated. Labs show no evidence of leukocytosis. He was given pain medication and antibiotics. He is afebrile, vital signs are stable. Patient was offered admission for diverticulitis and declined states he wants to be discharged home. He states he does live with his girlfriend and states will return if any new or worsening symptoms. He was directed to increase his fluid intake. Follow-up with his primary care doctor on Friday. Strict return parameters were discussed. Case discussed with Dr. Parham. - Lab Data Result diagrams: 10/09/22 09:44 10/09/22 09:44 Lab Results 10/09/22 10/09/22 10/09/22 Range/Units 09:44 09:44 09:44 WBC 4.4 (3.8-10.6) k/uL RBC 4.32 (4.30-5.90) m/uL Hgb 14.4 (13.0-17.5) gm/dL Hct 41.2 (39.0-53.0) % MCV 95.4 (80.0-100.0) fL MCH 33.4 (25.0-35.0) pg MCHC 35.0 (31.0-37.0) g/dL RDW 13.7 (11.5-15.5) % Plt Count 54 L (150-450) k/uL MPV 9.7 Neutrophils % 73 % Lymphocytes % 16 % Monocytes % 7 % Eosinophils % 1 % Basophils % 0 % Neutrophils # 3.2 (1.3-7.7) k/uL Lymphocytes # 0.7 L (1.0-4.8) k/uL Monocytes # 0.3 (0-1.0) k/uL Eosinophils # 0.1 (0-0.7) k/uL Basophils # 0.0 (0-0.2) k/uL Manual Slide Review Performed RBC Morphology Normal PT 10.9 (9.0-12.0) sec INR 1.0 (<1.2) APTT 22.0 (22.0-30.0) sec Sodium 139 (137-145) mmol/L Potassium 4.8 (3.5-5.1) mmol/L Chloride 106 (98-107) mmol/L Carbon Dioxide 25 (22-30) mmol/L Anion Gap 8 mmol/L BUN 16 (9-20) mg/dL Creatinine 0.75 (0.66-1.25) mg/dL Est GFR (CKD-EPI)AfAm >90 (>60 ml/min/1.73 sqM) Est GFR (CKD-EPI)NonAf 90 (>60 ml/min/1.73 sqM) Glucose 194 H (74-99) mg/dL Lactic Ac Sepsis Rflx Plasma Lactic Acid Evgeny (0.7-2.0) mmol/L Calcium 9.0 (8.4-10.2) mg/dL Total Bilirubin 1.8 H (0.2-1.3) mg/dL AST 45 (17-59) U/L ALT 39 (4-49) U/L Alkaline Phosphatase 109 (38-126) U/L Total Protein 7.3 (6.3-8.2) g/dL Albumin 4.4 (3.5-5.0) g/dL Amylase 44 (30-110) U/L Lipase 57 (23-300) U/L 10/09/22 10/09/22 Range/Units 09:44 10:27 WBC (3.8-10.6) k/uL RBC (4.30-5.90) m/uL Hgb (13.0-17.5) gm/dL Hct (39.0-53.0) % MCV (80.0-100.0) fL MCH (25.0-35.0) pg MCHC (31.0-37.0) g/dL RDW (11.5-15.5) % Plt Count (150-450) k/uL MPV Neutrophils % % Lymphocytes % % Monocytes % % Eosinophils % % Basophils % % Neutrophils # (1.3-7.7) k/uL Lymphocytes # (1.0-4.8) k/uL Monocytes # (0-1.0) k/uL Eosinophils # (0-0.7) k/uL Basophils # (0-0.2) k/uL Manual Slide Review RBC Morphology PT (9.0-12.0) sec INR (<1.2) APTT (22.0-30.0) sec Sodium (137-145) mmol/L Potassium (3.5-5.1) mmol/L Chloride (98-107) mmol/L Carbon Dioxide (22-30) mmol/L Anion Gap mmol/L BUN (9-20) mg/dL Creatinine (0.66-1.25) mg/dL Est GFR (CKD-EPI)AfAm (>60 ml/min/1.73 sqM) Est GFR (CKD-EPI)NonAf (>60 ml/min/1.73 sqM) Glucose (74-99) mg/dL Lactic Ac Sepsis Rflx Y Plasma Lactic Acid Evgeny 2.2 H* (0.7-2.0) mmol/L Calcium (8.4-10.2) mg/dL Total Bilirubin (0.2-1.3) mg/dL AST (17-59) U/L ALT (4-49) U/L Alkaline Phosphatase (38-126) U/L Total Protein (6.3-8.2) g/dL Albumin (3.5-5.0) g/dL Amylase (30-110) U/L Lipase (23-300) U/L Disposition Clinical Impression: Diverticulitis Disposition: HOME SELF-CARE Condition: Good Instructions (If sedation given, give patient instructions): Diverticulitis (ED), Diverticulitis Diet (ED) Additional Instructions: Clear liquid diet for the next 24 hours. Then a low fiber diet for the next 2 days. Avoid nuts, seeds and popcorn. Take antibiotics as prescribed. Follow-up with your primary care doctor on Friday. Return to the emergency room with any new or concerning symptoms including increased pain or fevers. Prescriptions: Amoxicillin/Potassium Clav [Augmentin Xr 1,000-62.5 Tab] 1 tab PO Q12H 5 Days #10 tab Is patient prescribed a controlled substance at d/c from ED?: No Referrals: Carrie Izaguirre MD [Primary Care Provider] - 1-2 days Time of Disposition: 11:14
[2022-10-09 10:16] LABS: ALT 39 U/L (4-49); AST 45 U/L (17-59); African American GFR (CKD) >90 (>60 ml/min/1.73 sqM); Albumin 4.4 g/dL (3.5-5.0); Alkaline Phosphatase 109 U/L (38-126); Amylase 44 U/L (30-110); Anion Gap 8 mmol/L; Blood Urea Nitrogen 16 mg/dL (9-20); Carbon Dioxide 25 mmol/L (22-30); Chloride 106 mmol/L (98-107); Glucose 194 mg/dL (74-99); Lipase 57 U/L (23-300); Non-African American GFR(CKD) 90 (>60 ml/min/1.73 sqM); Potassium 4.8 mmol/L (3.5-5.1); Prothrombin Time 10.9 sec (9.0-12.0); Sodium 139 mmol/L (137-145); Total Bilirubin 1.8 mg/dL (0.2-1.3); Total Protein 7.3 g/dL (6.3-8.2)
[2022-10-09] MEDS ORDERED: SODIUM CHLORIDE 0.9% 1,000 ML IV SCH (10:30)
[2022-10-09 10:37] LABS: Basophils % (A) 0 %; Eosinophils # (A) 0.1 k/uL (0-0.7); Eosinophils % (A) 1 %; HCT 41.2 % (39.0-53.0); HGB 14.4 gm/dL (13.0-17.5); Lymphocytes # (A) 0.7 k/uL (1.0-4.8); Lymphocytes % (A) 16 %; MCH 33.4 pg (25.0-35.0); MCV 95.4 fL (80.0-100.0); Mean Platelet Volume 9.7; Monocytes # (A) 0.3 k/uL (0-1.0); Monocytes % (A) 7 %; Neutrophils # (A) 3.2 k/uL (1.3-7.7); Neutrophils % (A) 73 %; RBC 4.32 m/uL (4.30-5.90); RDW 13.7 % (11.5-15.5); WBC 4.4 k/uL (3.8-10.6)
--- NOTE | 2022-10-09 10:58 | CT ---
EXAMINATION TYPE: CT abdomen pelvis w con DATE OF EXAM: 10/09/2022 COMPARISON: Most recent CT May 05, 2022 and older studies HISTORY: left sided abdominal pain CT DLP: 2212 mGycm, Automated Exposure Control for Dose Reduction was Utilized. CONTRAST: CT scan of the abdomen and pelvis is performed without oral but with IV Contrast, patient injected wi th 100 mL of Isovue 300. FINDINGS: LUNG BASES: Coronary artery cusp outsole caser stents are redemonstrated. LIVER/GB: Liver remains diffusely heterogeneously hypodense with slight lobulated contour to the live r again seen. Cholecystectomy clips are redemonstrated. No new ascites. PANCREAS: No significant abnormality is seen. SPLEEN: Stable splenomegaly at 15.7 cm long axis coronal image 83r. ADRENALS: No significant abnormality is seen. KIDNEYS: Partially exophytic 1.9 cm thin-walled cyst posteriorly from the upper pole left kidney axia l image 33 is redemonstrated. There is suspected 2 mm nonobstructing calculus in the left kidney uppe r to midpole level coronal image 75 on current study. No hydronephrosis or obstructing ureteral calcu li. No intraluminal calculi in the bladder. BOWEL: Suboptimal evaluation without enteric contrast. No suspicious small or large bowel dilatation. Normal-appearing appendix extends superiorly from the cecum. Some diverticula in the left and sigmoi d colon with focal mild fluid and fat stranding near junction of left and sigmoid colon in the left u pper pelvis. No free air. No well-formed fluid collection or abscess seen. PROSTATE/SEMINAL VESICLES: Posterior calcifications in normal sized prostate are redemonstrated. LYMPH NODES: No greater than 1cm abdominal or pelvic lymph nodes are appreciated. OSSEOUS STRUCTURES: Vacuum disc phenomenon and lower lumbar levels. Moderate axial joint space loss b oth hips. OTHER: Moderate to severe calcified plaque of the aorta extends into branch vessels. Focal narrowing at the origin of the celiac artery sagittal image 80, cannot exclude celiac artery compression syndro me. IMPRESSION: 1. CT findings consistent with a uncomplicated mild acute diverticulitis left upper pelvis near junct ion of the left and sigmoid colon. 2. 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 No significant change from most recent prior studies. Correlate clinically.
[2022-10-09] MEDS ORDERED: AMOXIC-POT CLAV 875-125MG 1 EACH TAB PO STA (11:12)
[2022-10-09 11:31] LABS: Platelet Count 54 k/uL (150-450); RBC Morphology Normal
[2022-10-09 11:51] VITALS: BP 114/68; PULSE 63; TEMP 98
== END 2022-10-09 11:51 | disposition home or self-care (01) ==
LOC: EC 09:21
DX: K57.32 Diverticulitis of large intestine without perforation or abscess without bleeding (principal); I25.10 Atherosclerotic heart disease of native coronary artery without angina pectoris; J44.9 Chronic obstructive pulmonary disease, unspecified; E11.9 Type 2 diabetes mellitus without complications; K21.9 Gastro-esophageal reflux disease without esophagitis; E78.5 Hyperlipidemia, unspecified; I11.0 Hypertensive heart disease with heart failure; I25.2 Old myocardial infarction; Z87.891 Personal history of nicotine dependence; Z79.899 Other long term (current) drug therapy; Z79.82 Long term (current) use of aspirin; Z79.4 Long term (current) use of insulin
CPT/HCPCS: 36415; 80053; 82150; 83605; 83690; 85025; 85610; 85730; 74177; 99285; 96374; 96376; 96361 ×2; J1170; Q9967

== ENCOUNTER 2023-03-19 13:24 | Emergency (ER) | payer MEDICARE ==
[2023-03-19 13:45] VITALS: TEMP 98.2
--- NOTE | 2023-03-19 14:17 | ED ---
General Adult HPI - General Chief complaint: Shortness of Breath Stated complaint: poss covid Time Seen by Provider: 03/19/23 13:32 Source: patient, EMS, RN notes reviewed, old records reviewed Mode of arrival: EMS Limitations: no limitations - History of Present Illness Initial comments: 77-year-old male with cough and congestion. Patient states he tested positive for coronavirus at home. He states he's been sick for the past 3 or 4 days. No fever. No chest pain. Very mild dyspnea. No abdominal pain or vomiting. No lower extremity pain or swelling. - Related Data Home Medications Medication Instructions Recorded Confirmed metFORMIN HCL [Glucophage] 1,000 mg PO BID 06/07/14 10/09/22 Ferrous Sulfate [Iron (65 MG 325 mg PO DAILY 03/07/16 10/09/22 Elemental)] Magnesium Oxide [Mag-Ox] 250 mg PO DAILY 07/11/19 10/09/22 Nitroglycerin Sl Tabs [Nitrostat] 0.4 mg SUBLINGUAL Q5M PRN 07/17/21 10/09/22 allopurinoL [Zyloprim] 100 mg PO DAILY 07/17/21 10/09/22 carvediloL [Coreg] 12.5 mg PO BID 11/27/21 10/09/22 Aspirin EC [Ecotrin Low Dose] 81 mg PO DAILY 02/10/22 10/09/22 lisinopriL [Zestril] 2.5 mg PO DAILY 02/10/22 10/09/22 Atorvastatin [Lipitor] 80 mg PO DAILY 03/07/22 10/09/22 Insulin NPH Hum/Reg Insulin Hm 20 unit SQ DAILY 10/09/22 10/09/22 [NovoLIN 70-30 100 UNIT/ML VIAL] Previous Rx's Medication Instructions Recorded Amoxicillin/Potassium Clav 1 tab PO Q12H 5 Days #10 tab 10/09/22 [Augmentin Xr 1,000-62.5 Tab] Azithromycin [Zithromax Z Pack] 1 tab PO DIRECTED #6 tab 03/19/23 predniSONE 50 mg PO DAILY #5 tab 03/19/23 Allergies Allergy/AdvReac Type Severity Reaction Status Date / Time No Known Allergies Allergy Verified 03/19/23 13:47 Review of Systems ROS Statement: Those systems with pertinent positive or pertinent negative responses have been documented in the HPI. ROS Other: All systems not noted in ROS Statement are negative. Past Medical History Past Medical History: Blood Disorder, Coronary Artery Disease (CAD), Chest Pain / Angina, Heart Failure, COPD, Diabetes Mellitus, GERD/Reflux, Hyperlipidemia, Hypertension, Myocardial Infarction (ME), Pneumonia, Supraventricular Tachycardia (SVT), Vascular Disorder Additional Past Medical History / Comment(s): Ischemic CMP, nonsustained ventriclar arrhythmia, systolic heart failure, ME x 2 in 2001, 1994, thrombocytopenia, kidney stones, gout bilateral feet/ toes, hx bilat tinnitis, stomach ulcers 2020 Last Myocardial Infarction Date:: 2001 History of Any Multi-Drug Resistant Organisms: None Reported Past Surgical History: Cardiac Ablation, Cholecystectomy, Heart Catheterization, Heart Catheterization With Stent, Joint Replacement, Orthopedic Surgery Additional Past Surgical History / Comment(s): PCIs with total 6 stents per patient, cardiac ablation-AVRNT, EPS, R knee arthroscopy, bilateral total knee replacements-L side became infected-had I&D, bilateral shoulder rotator cuff surgeries with L side done 3 times, L ankle surgery, bilateral carpal tunnel releases, colonoscopy. EGD Past Anesthesia/Blood Transfusion Reactions: No Reported Reaction Additional Past Anesthesia/Blood Transfusion Reaction / Comment(s): never had a blood tranfusion Date of Last Stent Placement:: 02/05/19 Past Psychological History: No Psychological Hx Reported Smoking Status: Former smoker Past Alcohol Use History: Daily Past Drug Use History: None Reported - Past Family History Father History Unknown: Yes Additional Family Medical History / Comment(s): Pt does not know his father's history. His parents were when he was 6 yrs old. Mother History Unknown: Yes Family Medical History: Cancer Additional Family Medical History / Comment(s): Pt states mother had some form of cancer which she from at the age of 77yrs. General Exam Limitations: no limitations General appearance: alert, in no apparent distress Head exam: Present: atraumatic, normocephalic Eye exam: Present: normal appearance, PERRL ENT exam: Present: normal exam Neck exam: Present: normal inspection. Absent: tenderness, meningismus Respiratory exam: Present: normal lung sounds bilaterally. Absent: respiratory distress, wheezes, rhonchi, decreased breath sounds Cardiovascular Exam: Present: regular rate, normal rhythm GI/Abdominal exam: Present: soft. Absent: distended, tenderness, guarding Extremities exam: Present: normal inspection, normal capillary refill. Absent: pedal edema, calf tenderness Neurological exam: Present: alert, oriented X3 Psychiatric exam: Present: normal affect, normal mood Course Vital Signs 03/19/23 13:28 Temperature 98.2 F Pulse Rate 67 Respiratory 24 Rate Blood Pressure 115/48 O2 Sat by Pulse 97 Oximetry EKG Findings - EKG Comments: EKG Findings:: EKG: Sinus rhythm with first-degree AV block rate of 66, OR interval 211, QRS duration 136, QTC 441 similar QRS morphology, similar EKG to February 2022 Medical Decision Making - Medical Decision Making Was pt. sent in by a medical professional or institution (, [facility], [facility], urgent care, hospital, or fpc...) When possible be specific @ -No Did you speak to anyone other than the patient for history (EMS, parent, family, police, friend...)? What history was obtained from this source @ -No Did you review nursing and triage notes (agree or disagree)? Why? @ -I reviewed and agree with nursing and triage notes Were old charts reviewed (outside hosp., previous admission, EMS record, old EKG, old radiological studies, urgent care reports/EKG's, fpc records)? Report findings @ -Previous admissions, previous x-rays Differential Diagnosis (chest pain, altered mental status, abdominal pain women, abdominal pain men, vaginal bleeding, weakness, fever, dyspnea, syncope, headache, dizziness, GI bleed, back pain, seizure, CVA, palpatations, mental health, musculoskeletal)? @ -URI, coronavirus, pneumonia EKG interpreted by me (3pts min.). @ -As above X-rays interpreted by me (1pt min.). @ Negative for acute cardiopulmonary findings, no pneumothorax, no focal pneumonia CT interpreted by me (1pt min.). @ -None done U/S interpreted by me (1pt. min.). @ -None done What testing was considered but not performed or refused? (CT, X-rays, U/S, labs)? Why? @ -None What meds were considered but not given or refused? Why? @ -None Did you discuss the management of the patient with other professionals (professionals i.e. , [facility], [facility], lab, RT, psych nurse, social media analyst, [employer] controlled atmospheric furnace, teacher, correctional officer lieutenant, heel caser)? Give summary @ -No Was smoking cessation discussed for >3mins.? @ -No Was critical care preformed (if so, how long)? @ -No Were there social determinants of health that impacted care today? How? (Ho melessness, low income, unemployed, alcoholism, drug addiction, transportation, low edu. Level, literacy, decrease access to med. care, long-term, rehab)? @ -No Was there de-escalation of care discussed even if they declined (Discuss DNR or withdrawal of care, Hospice)? DNR status @ -No What co-morbidities impacted this encounter? (DM, HTN, Smoking, COPD, CAD, Cancer, CVA, ARF, Chemo, Hep., AIDS, mental health diagnosis, sleep apnea, morbid obesity)? @ -CAD, hypertension, COPD Was patient admitted / discharged? Hospital course, mention meds given and route, prescriptions, significant lab abnormalities, going to OR and other pertinent info. @ 77-year-old male with cough, congestion. Patient requesting coronavirus test. Chest x-ray reviewed by myself, negative for acute cardiopulmonary findings. Undiagnosed new problem with uncertain prognosis? @ -No Drug Therapy requiring intensive monitoring for toxicity (Heparin, Nitro, Insulin, Cardizem)? @ -No Were any procedures done? @ -No Diagnosis/symptom? @ -Upper respiratory infection Acute, or Chronic, or Acute on Chronic? @ -Acute Uncomplicated (without systemic symptoms) or Complicated (systemic symptoms)? @ -default Side effects of treatment? @ -No Exacerbation, Progression, or Severe Exacerbation? @ -No Poses a threat to life or bodily function? How? (Chest pain, USA, ME, pneumonia, PE, COPD, DKA, ARF, appy, cholecystitis, CVA, Diverticulitis, Homicidal, Suicidal, threat to staff... and all critical care pts) @ -No - Lab Data Lab Results 03/19/23 Range/Units 14:15 Influenza Type A (PCR) Not Detected (Not Detectd) Influenza Type B (PCR) Not Detected (Not Detectd) RSV (PCR) Not Detected (Not Detectd) SARS-CoV-2 (PCR) Not Detected (Not Detectd) Disposition Clinical Impression: Upper respiratory disease Disposition: HOME SELF-CARE Condition: Fair Instructions (If sedation given, give patient instructions): Acute Bronchitis (ED) Prescriptions: predniSONE 50 mg PO DAILY #5 tab Azithromycin [Zithromax Z Pack] 1 tab PO DIRECTED #6 tab Is patient prescribed a controlled substance at d/c from ED?: No Referrals: Carrie Izaguirre MD [Primary Care Provider] - 1-2 days Time of Disposition: 15:13
--- NOTE | 2023-03-19 14:44 | XR ---
EXAMINATION TYPE: XR chest 2V DATE OF EXAM: 03/19/2023 COMPARISON: Chest x-ray November 28, 2021 HISTORY: Difficulty in breathing. TECHNIQUE: Frontal and lateral views of the chest are obtained. FINDINGS: Some mild chronic parenchymal change bilaterally is redemonstrated. There is no focal air space opacity, pleural effusion, or pneumothorax seen. The cardiac silhouette size is stable and mil dly enlarged. Surgical change right shoulder partially imaged similar to prior. Screw fragment left h umeral head redemonstrated. IMPRESSION: Chronic changes and mild cardiomegaly without acute pulmonary process.
[2023-03-19 15:21] VITALS: BP 126/51; PULSE 65; RESP 19
== END 2023-03-19 15:30 | disposition home or self-care (01) ==
LOC: EC 13:24
DX: J39.9 Disease of upper respiratory tract, unspecified (principal); I11.0 Hypertensive heart disease with heart failure; I25.10 Atherosclerotic heart disease of native coronary artery without angina pectoris; I25.2 Old myocardial infarction; E11.9 Type 2 diabetes mellitus without complications; E78.5 Hyperlipidemia, unspecified; J44.9 Chronic obstructive pulmonary disease, unspecified; K21.9 Gastro-esophageal reflux disease without esophagitis; Z79.4 Long term (current) use of insulin; Z79.52 Long term (current) use of systemic steroids; Z79.82 Long term (current) use of aspirin; Z79.84 Long term (current) use of oral hypoglycemic drugs; Z79.899 Other long term (current) drug therapy; Z90.49 Acquired absence of other specified parts of digestive tract; Z87.891 Personal history of nicotine dependence; Z20.822 Contact with and (suspected) exposure to COVID-19
CPT/HCPCS: 71046; 87636; 93005; 99285

== ENCOUNTER 2023-07-21 11:59 | Emergency (ER) | payer MEDICARE ==
[2023-07-21 12:14] VITALS: RESP 20; TEMP 98.3
[2023-07-21] MEDS ORDERED: SODIUM CHLORIDE 0.9% 1,000 ML IV STA (12:39)
[2023-07-21] MEDS ORDERED: MORPHINE SULFATE 4 MG/ML SYRINGE IVP STA ×2 (12:40→14:22)
--- NOTE | 2023-07-21 12:42 | ED ---
General Adult HPI - General Chief complaint: Abdominal Pain Stated complaint: Abd Pain Time Seen by Provider: 07/21/23 12:06 Source: patient, EMS, RN notes reviewed Mode of arrival: EMS Limitations: no limitations - History of Present Illness Initial comments: Patient is a pleasant 77-year-old male presenting to the emergency department with concerns with abdominal discomfort. Onset of symptoms was yesterday morning. Symptoms have slowly progressed since that time. Symptoms are constant. Patient did have some nausea however that has resolved. No vomiting. patient diarrhea. No fever. No radiation. Discomfort is left lower quadrant. - Related Data Home Medications Medication Instructions Recorded Confirmed metFORMIN HCL [Glucophage] 1,000 mg PO BID 06/07/14 10/09/22 Ferrous Sulfate [Iron (65 MG 325 mg PO DAILY 03/07/16 10/09/22 Elemental)] Magnesium Oxide [Mag-Ox] 250 mg PO DAILY 07/11/19 10/09/22 Nitroglycerin Sl Tabs [Nitrostat] 0.4 mg SUBLINGUAL Q5M PRN 07/17/21 10/09/22 allopurinoL [Zyloprim] 100 mg PO DAILY 07/17/21 10/09/22 carvediloL [Coreg] 12.5 mg PO BID 11/27/21 10/09/22 Aspirin EC [Ecotrin Low Dose] 81 mg PO DAILY 02/10/22 10/09/22 lisinopriL [Zestril] 2.5 mg PO DAILY 02/10/22 10/09/22 Atorvastatin [Lipitor] 80 mg PO DAILY 03/07/22 10/09/22 Insulin NPH Hum/Reg Insulin Hm 20 unit SQ DAILY 10/09/22 10/09/22 [NovoLIN 70-30 100 UNIT/ML VIAL] Previous Rx's Medication Instructions Recorded Amoxicillin/Potassium Clav 1 tab PO Q12H 5 Days #10 tab 10/09/22 [Augmentin Xr 1,000-62.5 Tab] Azithromycin [Zithromax Z Pack] 1 tab PO DIRECTED #6 tab 03/19/23 predniSONE 50 mg PO DAILY #5 tab 03/19/23 Amoxic-Pot Clav 875-125Mg 1 tab PO Q12HR 10 Days #20 tab 07/21/23 [Augmentin 875-125] Allergies Allergy/AdvReac Type Severity Reaction Status Date / Time No Known Allergies Allergy Verified 07/21/23 12:15 Review of Systems ROS Statement: Those systems with pertinent positive or pertinent negative responses have been documented in the HPI. ROS Other: All systems not noted in ROS Statement are negative. Constitutional: Denies: fever Eyes: Denies: eye pain ENT: Denies: ear pain Respiratory: Denies: cough Cardiovascular: Denies: chest pain Endocrine: Denies: fatigue Gastrointestinal: Reports: as per HPI, abdominal pain Genitourinary: Denies: dysuria Musculoskeletal: Denies: back pain Past Medical History Past Medical History: Blood Disorder, Coronary Artery Disease (CAD), Chest Pain / Angina, Heart Failure, COPD, Diabetes Mellitus, GERD/Reflux, Hyperlipidemia, Hypertension, Myocardial Infarction (MN), Pneumonia, Supraventricular Tach ycardia (SVT), Vascular Disorder Additional Past Medical History / Comment(s): Ischemic CMP, nonsustained ventriclar arrhythmia, systolic heart failure, MN x 2 in 2001, 1994, thrombocytopenia, kidney stones, gout bilateral feet/ toes, hx bilat tinnitis, stomach ulcers 2020 Last Myocardial Infarction Date:: 2001 History of Any Multi-Drug Resistant Organisms: None Reported Past Surgical History: Cardiac Ablation, Cholecystectomy, Heart Catheterization, Heart Catheterization With Stent, Joint Replacement, Orthopedic Surgery Additional Past Surgical History / Comment(s): PCIs with total 6 stents per patient, cardiac ablation-AVRNT, EPS, R knee arthroscopy, bilateral total knee replacements-L side became infected-had I&D, bilateral shoulder rotator cuff surgeries with L side done 3 times, L ankle surgery, bilateral carpal tunnel releases, colonoscopy. EGD Past Anesthesia/Blood Transfusion Reactions: No Reported Reaction Additional Past Anesthesia/Blood Transfusion Reaction / Comment(s): never had a blood tranfusion Date of Last Stent Placement:: 02/05/19 Past Psychological History: No Psychological Hx Reported Smoking Status: Former smoker Past Alcohol Use History: Daily Past Drug Use History: None Reported - Past Family History Father History Unknown: Yes Additional Family Medical History / Comment(s): Pt does not know his father's history. His parents were when he was 6 yrs old. Mother History Unknown: Yes Family Medical History: Cancer Additional Family Medical History / Comment(s): Pt states mother had some form of cancer which she from at the age of 77yrs. General Exam Limitations: no limitations General appearance: alert, in no apparent distress Head exam: Present: normocephalic Eye exam: Present: normal appearance Neck exam: Present: normal inspection Respiratory exam: Present: normal lung sounds bilaterally Cardiovascular Exam: Present: regular rate, normal rhythm Expanded Peripheral pulses: 2+: Posterior Tibialis (R), Posterior Tibialis (L) GI/Abdominal exam: Present: soft, tenderness (Moderate tenderness left lower quadrant), normal bowel sounds. Absent: distended, pulsatile mass Extremities exam: Present: normal inspection. Absent: calf tenderness Neurological exam: Present: alert Psychiatric exam: Present: normal affect, normal mood Skin exam: Present: normal color Course Vital Signs 07/21/23 07/21/23 07/21/23 12:05 12:30 13:00 Temperature 98.3 F Pulse Rate 65 63 68 Respiratory 20 20 20 Rate Blood Pressure 108/53 100/50 116/51 O2 Sat by Pulse 98 96 99 Oximetry 07/21/23 13:30 Temperature Pulse Rate 68 Respiratory 20 Rate Blood Pressure 114/55 O2 Sat by Pulse 99 Oximetry Medical Decision Making - Medical Decision Making Was pt. sent in by a medical professional or institution (, PA, DIRECTOR OF GLOBAL TALENT, urgent care, hospital, or half-way...) When possible be specific @ -No Did you speak to anyone other than the patient for history (EMS, parent, family, police, friend...)? What history was obtained from this source @ -No Did you review nursing and triage notes (agree or disagree)? Why? @ -I reviewed and agree with nursing and triage notes Were old charts reviewed (outside hosp., previous admission, EMS record, old EKG, old radiological studies, urgent care reports/EKG's, half-way records)? Report findings @ -No old charts were reviewed Differential Diagnosis (chest pain, altered mental status, abdominal pain women, abdominal pain men, vaginal bleeding, weakness, fever, dyspnea, syncope, hea dache, dizziness, GI bleed, back pain, seizure, CVA, palpatations, mental health, musculoskeletal)? @ -Differential Abdominal Pain Men: Appendicitis, cholecystitis, diverticulosis, ischemic bowel, pancreatitis, hepatitis, UTI, gastroenteritis, AAA, incarcerated hernia, bowel obstruction, constipation, inflammatory bowel, hepatitis, peptic ulcer disease, splenic infarction, perforated viscus, testicular torsion, this is not meant to be an all-inclusive list EKG interpreted by me (3pts min.). @ -As above X-rays interpreted by me (1pt min.). @ -None done CT interpreted by me (1pt min.). @ -Report reviewed U/S interpreted by me (1pt. min.). @ -None done What testing was considered but not performed or refused? (CT, X-rays, U/S, labs)? Why? @ -None What meds were considered but not given or refused? Why? @ -None Did you discuss the management of the patient with other professionals (professionals i.e. DrOlinda, PA, DIRECTOR OF GLOBAL TALENT, lab, RT, psych nurse, director social, fire pot operator, teacher, housing officer, employment evaluator/case manager)? Give summary @ -No Was smoking cessation discussed for >3mins.? @ -No Was critical care preformed (if so, how long)? @ -No Were there social determinants of health that impacted care today? How? (Homelessness, low income, unemployed, alcoholism, drug addiction, transportation, low edu. Level, literacy, decrease access to med. care, assisted, rehab)? @ -No Was there de-escalation of care discussed even if they declined (Discuss DNR or withdrawal of care, Hospice)? DNR status @ -No What co-morbidities impacted this encounter? (DM, HTN, Smoking, COPD, CAD, Cancer, CVA, ARF, Chemo, Hep., AIDS, mental health diagnosis, sleep apnea, morb id obesity)? @ -None Was patient admitted / discharged? Hospital course, mention meds given and route, prescriptions, significant lab abnormalities, going to OR and other pertinent info. @ -Patient reevaluated and resting comfortably in bed. Patient still has some discomfort and is receptive to more medication. Computed tomography scan co ncerning for diverticulitis. Patient is comfortable with discharge home and will be started with antibiotics. Undiagnosed new problem with uncertain prognosis? @ -No Drug Therapy requiring intensive monitoring for toxicity (Heparin, Nitro, In sulin, Cardizem)? @ -No Were any procedures done? @ -No Diagnosis/symptom? @ -Diverticulitis Acute, or Chronic, or Acute on Chronic? @ -Acute Uncomplicated (without systemic symptoms) or Complicated (systemic symptoms)? @ -default Side effects of treatment? @ -No Exacerbation, Progression, or Severe Exacerbation? @ -No Poses a threat to life or bodily function? How? (Chest pain, USA, MN, pneumonia, PE, COPD, DKA, ARF, appy, cholecystitis, CVA, Diverticulitis, Homicidal, Suicidal, threat to staff... and all critical care pts) @ -No - Lab Data Result diagrams: 07/21/23 12:42 07/21/23 12:42 Lab Results 07/21/23 07/21/23 07/21/23 Range/Units 12:42 12:42 12:42 WBC 3.8 (3.8-10.6) k/uL RBC 3.61 L (4.30-5.90) m/uL Hgb 12.0 L (13.0-17.5) gm/dL Hct 36.1 L (39.0-53.0) % MCV 100.0 (80.0-100.0) fL MCH 33.4 (25.0-35.0) pg MCHC 33.4 (31.0-37.0) g/dL RDW 13.0 (11.5-15.5) % Plt Count 53 L (150-450) k/uL MPV 8.6 Neutrophils % 70 % Lymphocytes % 20 % Monocytes % 7 % Eosinophils % 2 % Basophils % 0 % Neutrophils # 2.6 (1.3-7.7) k/uL Lymphocytes # 0.8 L (1.0-4.8) k/uL Monocytes # 0.3 (0-1.0) k/uL Eosinophils # 0.1 (0-0.7) k/uL Basophils # 0.0 (0-0.2) k/uL Manual Slide Review Performed RBC Morphology Normal PT 10.9 (9.0-12.0) sec INR 1.0 (<1.2) APTT 21.5 L (22.0-30.0) sec Sodium 134 L (137-145) mmol/L Potassium 4.6 (3.5-5.1) mmol/L Chloride 102 (98-107) mmol/L Carbon Dioxide 24 (22-30) mmol/L Anion Gap 8 mmol/L BUN 14 (9-20) mg/dL Creatinine 0.84 (0.66-1.25) mg/dL Est GFR (CKD-EPI)AfAm >90 (>60 ml/min/1.73 sqM) Est GFR (CKD-EPI)NonAf 86 (>60 ml/min/1.73 sqM) Glucose 234 H (74-99) mg/dL Calcium 8.7 (8.4-10.2) mg/dL Total Bilirubin 1.6 H (0.2-1.3) mg/dL AST 45 (17-59) U/L ALT 33 (4-49) U/L Alkaline Phosphatase 105 (38-126) U/L Total Protein 6.7 (6.3-8.2) g/dL Albumin 3.9 (3.5-5.0) g/dL Amylase 41 (30-110) U/L Lipase 68 (23-300) U/L Urine Color Urine Appearance (Clear) Urine pH (5.0-8.0) Ur Specific [place] (1.001-1.035) Urine Protein (Negative) Urine Glucose (UA) (Negative) Urine Ketones (Negative) Urine Blood (Negative) Urine Nitrite (Negative) Urine Bilirubin (Negative) Urine Urobilinogen (<2.0) mg/dL Ur Leukocyte Esterase (Negative) Urine RBC (0-5) /hpf Urine WBC (0-5) /hpf Ur Squamous Epith Cells (0-4) /hpf Urine Mucus (None) /hpf 07/21/23 Range/Units 13:04 WBC (3.8-10.6) k/uL RBC (4.30-5.90) m/uL Hgb (13.0-17.5) gm/dL Hct (39.0-53.0) % MCV (80.0-100.0) fL MCH (25.0-35.0) pg MCHC (31.0-37.0) g/dL RDW (11.5-15.5) % Plt Count (150-450) k/uL MPV Neutrophils % % Lymphocytes % % Monocytes % % Eosinophils % % Basophils % % Neutrophils # (1.3-7.7) k/uL Lymphocytes # (1.0-4.8) k/uL Monocytes # (0-1.0) k/uL Eosinophils # (0-0.7) k/uL Basophils # (0-0.2) k/uL Manual Slide Review RBC Morphology PT (9.0-12.0) sec INR (<1.2) APTT (22.0-30.0) sec Sodium (137-145) mmol/L Potassium (3.5-5.1) mmol/L Chloride (98-107) mmol/L Carbon Dioxide (22-30) mmol/L Anion Gap mmol/L BUN (9-20) mg/dL Creatinine (0.66-1.25) mg/dL Est GFR (CKD-EPI)AfAm (>60 ml/min/1.73 sqM) Est GFR (CKD-EPI)NonAf (>60 ml/min/1.73 sqM) Glucose (74-99) mg/dL Calcium (8.4-10.2) mg/dL Total Bilirubin (0.2-1.3) mg/dL AST (17-59) U/L ALT (4-49) U/L Alkaline Phosphatase (38-126) U/L Total Protein (6.3-8.2) g/dL Albumin (3.5-5.0) g/dL Amylase (30-110) U/L Lipase (23-300) U/L Urine Color Yellow Urine Appearance Clear (Clear) Urine pH 5.0 (5.0-8.0) Ur Specific [place] 1.018 (1.001-1.035) Urine Protein Trace H (Negative) Urine Glucose (UA) 4+ H (Negative) Urine Ketones Negative (Negative) Urine Blood Negative (Negative) Urine Nitrite Negative (Negative) Urine Bilirubin Negative (Negative) Urine Urobilinogen <2.0 (<2.0) mg/dL Ur Leukocyte Esterase Small H (Negative) Urine RBC 1 (0-5) /hpf Urine WBC 5 (0-5) /hpf Ur Squamous Epith Cells <1 (0-4) /hpf Urine Mucus Rare H (None) /hpf Disposition Clinical Impression: Diverticulitis Disposition: HOME SELF-CARE Condition: Stable Instructions (If sedation given, give patient instructions): Diverticulitis (ED) Additional Instructions: Prescription sent to pharmacy. Please do follow-up with your primary care physician in the next day or 2 for recheck. Return for increased pain, vomiting, fever, worsening or change in symptoms or any other concerns. Prescriptions: Amoxic-Pot Clav 875-125Mg [Augmentin 875-125] 1 tab PO Q12HR 10 Days #20 tab Is patient prescribed a controlled substance at d/c from ED?: No Referrals: Carrie Rush MD [Primary Care Provider] - 1-2 days Time of Disposition: 14:25
[2023-07-21 13:09] LABS: Basophils % (A) 0 %; Eosinophils # (A) 0.1 k/uL (0-0.7); Eosinophils % (A) 2 %; HCT 36.1 % (39.0-53.0); Lymphocytes # (A) 0.8 k/uL (1.0-4.8); Lymphocytes % (A) 20 %; MCH 33.4 pg (25.0-35.0); MCHC 33.4 g/dL (31.0-37.0); Mean Platelet Volume 8.6; Monocytes # (A) 0.3 k/uL (0-1.0); Monocytes % (A) 7 %; Neutrophils # (A) 2.6 k/uL (1.3-7.7); Neutrophils % (A) 70 %; RBC 3.61 m/uL (4.30-5.90); WBC 3.8 k/uL (3.8-10.6)
[2023-07-21 13:25] LABS: Appearance,Urine Clear (Clear); Bilirubin,Urine Negative (Negative); Blood,Urine Negative (Negative); Glucose,Urine (UA) 4+ (Negative); Ketones,Urine Negative (Negative); Leukocyte Esterase,Urine Small (Negative); Mucus,Urine Rare /hpf; Nitrite,Urine Negative (Negative); Protein,Urine Trace (Negative); RBC,Urine 1 /hpf (0-5); Specific Gravity,Urine 1.018 (1.001-1.035); Squamous Epithelial Cell,Urine <1 /hpf (0-4); Urobilinogen,Urine <2.0 mg/dL (<2.0); WBC,Urine 5 /hpf (0-5)
[2023-07-21 13:27] LABS: Color,Urine Yellow
[2023-07-21 13:32] LABS: Prothrombin Time 10.9 sec (9.0-12.0)
[2023-07-21 13:35] LABS: Partial Thromboplastin Time 21.5 sec (22.0-30.0)
[2023-07-21 13:38] LABS: ALT 33 U/L (4-49); AST 45 U/L (17-59); African American GFR (CKD) >90 (>60 ml/min/1.73 sqM); Albumin 3.9 g/dL (3.5-5.0); Alkaline Phosphatase 105 U/L (38-126); Amylase 41 U/L (30-110); Anion Gap 8 mmol/L; Blood Urea Nitrogen 14 mg/dL (9-20); Calcium 8.7 mg/dL (8.4-10.2); Carbon Dioxide 24 mmol/L (22-30); Chloride 102 mmol/L (98-107); Glucose 234 mg/dL (74-99); Lipase 68 U/L (23-300); Non-African American GFR(CKD) 86 (>60 ml/min/1.73 sqM); Potassium 4.6 mmol/L (3.5-5.1); Sodium 134 mmol/L (137-145); Total Bilirubin 1.6 mg/dL (0.2-1.3); Total Protein 6.7 g/dL (6.3-8.2)
[2023-07-21 13:51] LABS: Platelet Count 53 k/uL (150-450)
[2023-07-21 13:52] LABS: RBC Morphology Normal
[2023-07-21 14:00] VITALS: BP 114/55; PULSE 68
--- NOTE | 2023-07-21 14:06 | CT ---
EXAMINATION TYPE: CT abdomen pelvis w con DATE OF EXAM: 07/21/2023 COMPARISON: 10/09/2022 HISTORY: LLQ abdominal pain. CT DLP: 2691.4 mGycm CONTRAST: CT scan of the abdomen and pelvis is performed without Oral Contrast and with IV Contrast, patient in jected with 100ml mL of Isovue 300. FINDINGS: LUNG BASES-: No visible nodule. No infiltrate. LIVER/GB: The gallbladder is surgically absent. Micronodular appearance to the periphery of the davi er may reflect underlying hepatic steatosis. Correlate clinically and with hepatic function testing. No space occupying hepatic lesion. Biliary tree is of normal caliber. PANCREAS: No inflammation. No distinct mass. SPLEEN: Splenomegaly measuring 16.7 cm craniocaudal dimension. No lesion seen. ADRENALS: No nodule. No thickening. KIDNEYS/BLADDER: No hydronephrosis. No nephrolithiasis. No distinct renal mass. Urinary bladder g rossly unremarkable. BOWEL: Normal appendix. Normal bowel caliber. There is mild wall thickening of the distal descending colon with surrounding dirty fat. The findings are felt to reflect mild uncomplicated acute divertic ulitis. No evidence for abscess or free air. Moderate diverticulosis. GENITAL ORGANS: No gross abnormality. LYMPH NODES: No greater than 1cm abdominal or pelvic lymph nodes are appreciated. AORTA: No significant abnormality. OSSEOUS STRUCTURES: No significant abnormality is seen. OTHER: No significant additional abnormality is seen. IMPRESSION: 1. There is mild wall thickening of the distal descending colon with surrounding dirty fat. The findi ngs are felt to reflect mild uncomplicated acute diverticulitis. 2. Splenomegaly and probable cirrhotic liver disease.
[2023-07-21] MEDS ORDERED: traMADol 50 MG STARTER PACK 3 TAB BTL PO STA (14:22)
== END 2023-07-21 14:35 | disposition home or self-care (01) ==
LOC: EC 11:59
DX: R10.9 Unspecified abdominal pain (principal); E11.9 Type 2 diabetes mellitus without complications; I11.0 Hypertensive heart disease with heart failure; I25.10 Atherosclerotic heart disease of native coronary artery without angina pectoris; I25.2 Old myocardial infarction; J44.9 Chronic obstructive pulmonary disease, unspecified; I50.9 Heart failure, unspecified; E78.5 Hyperlipidemia, unspecified; Z79.4 Long term (current) use of insulin; Z79.82 Long term (current) use of aspirin; Z79.84 Long term (current) use of oral hypoglycemic drugs; Z87.891 Personal history of nicotine dependence; Z79.899 Other long term (current) drug therapy
CPT/HCPCS: 36415; 80053; 82150; 83690; 85025; 85610; 85730; 81001; 74177; 99284; 96374; 96376; 96361 ×2; J2270; Q9967

== ENCOUNTER 2023-07-22 17:02 | Inpatient (IN) | payer MEDICARE ==
--- NOTE | 2023-07-22 17:45 | ED ---
General Adult HPI <Teddy Arrieta - Last Filed: 07/22/23 17:45> - General Source: patient, family, RN notes reviewed Mode of arrival: ambulatory Limitations: no limitations - History of Present Illness MD Complaint: Abdominal pain <Dionne Jason - Last Filed: 07/22/23 22:27> - General Chief complaint: Abdominal Pain Stated complaint: diverticulitis Time Seen by Provider: 07/22/23 18:45 - History of Present Illness Initial comments: 77-year-old male with a past medical history significant for diverticulitis presents to the ED with a chief complaint of abdominal pain. Patient recently seen here yesterday and was discharged with a diagnosis of diverticulitis. Discharged home with prescription for Augmentin. Has been taking this as prescribed. Was advised to return was worsening pain. Since yesterday, reports worsening left lower quadrant pain. No diarrhea. No blood in the stool. Denies fever. (Teddy Arrieta) When I went to evaluate the patient, he reiterated the same information as listed above. Denies any associated nausea. The pain continues to be in the left lower quadrant. He has been taking Tylenol #3, which he was sent home with yesterday, with no relief in pain and states that it seems to be getting worse. (Dionne Jason) - Related Data Home Medications Medication Instructions Recorded Confirmed metFORMIN HCL [Glucophage] 1,000 mg PO BID 06/07/14 10/09/22 Ferrous Sulfate [Iron (65 MG 325 mg PO DAILY 03/07/16 10/09/22 Elemental)] Magnesium Oxide [Mag-Ox] 250 mg PO DAILY 07/11/19 10/09/22 Nitroglycerin Sl Tabs [Nitrostat] 0.4 mg SUBLINGUAL Q5M PRN 07/17/21 10/09/22 allopurinoL [Zyloprim] 100 mg PO DAILY 07/17/21 10/09/22 carvediloL [Coreg] 12.5 mg PO BID 11/27/21 10/09/22 Aspirin EC [Ecotrin Low Dose] 81 mg PO DAILY 02/10/22 10/09/22 lisinopriL [Zestril] 2.5 mg PO DAILY 02/10/22 10/09/22 Atorvastatin [Lipitor] 80 mg PO DAILY 03/07/22 10/09/22 Insulin NPH Hum/Reg Insulin Hm 20 unit SQ DAILY 10/09/22 10/09/22 [NovoLIN 70-30 100 UNIT/ML VIAL] Previous Rx's Medication Instructions Recorded Amoxicillin/Potassium Clav 1 tab PO Q12H 5 Days #10 tab 10/09/22 [Augmentin Xr 1,000-62.5 Tab] Azithromycin [Zithromax Z Pack] 1 tab PO DIRECTED #6 tab 03/19/23 predniSONE 50 mg PO DAILY #5 tab 03/19/23 Amoxic-Pot Clav 875-125Mg 1 tab PO Q12HR 10 Days #20 tab 07/21/23 [Augmentin 875-125] Allergies Allergy/AdvReac Type Severity Reaction Status Date / Time No Known Allergies Allergy Verified 07/21/23 12:15 Review of Systems ROS Other: All systems not noted in ROS Statement are negative. <Teddy Arrieta - Last Filed: 07/22/23 17:45> ROS Other: All systems not noted in ROS Statement are negative. <Dionne Jason - Last Filed: 07/22/23 22:27> ROS Statement: Those systems with pertinent positive or pertinent negative responses have been documented in the HPI. Past Medical History Past Medical History: Blood Disorder, Coronary Artery Disease (CAD), Chest Pain / Angina, Heart Failure, COPD, Diabetes Mellitus, GERD/Reflux, Hyperlipidemia, Hypertension, Myocardial Infarction ([place]), Pneumonia, Supraventricular Tachycardia (SVT), Vascular Disorder Additional Past Medical History / Comment(s): Ischemic CMP, nonsustained ventriclar arrhythmia, systolic heart failure, [place] x 2 in 1994, thrombocytopenia, kidney stones, gout bilateral feet/ toes, hx bilat tinnitis, stomach ulcers 2020 Last Myocardial Infarction Date:: 2001 History of Any Multi-Drug Resistant Organisms: None Reported Past Surgical History: Cardiac Ablation, Cholecystectomy, Heart Catheterization, Heart Catheterization With Stent, Joint Replacement, Orthopedic Surgery Additional Past Surgical History / Comment(s): PCIs with total 6 stents per patient, cardiac ablation-AVRNT, EPS, R knee arthroscopy, bilateral total knee replacements-L side became infected-had I&D, bilateral shoulder rotator cuff surgeries with L side done 3 times, L ankle surgery, bilateral carpal tunnel releases, colonoscopy. EGD Past Anesthesia/Blood Transfusion Reactions: No Reported Reaction Additional Past Anesthesia/Blood Transfusion Reaction / Comment(s): never had a blood tranfusion Date of Last Stent Placement:: 02/05/19 Past Psychological History: No Psychological Hx Reported Smoking Status: Former smoker Past Alcohol Use History: Daily Past Drug Use History: None Reported - Past Family History Father History Unknown: Yes Additional Family Medical History / Comment(s): Pt does not know his father's history. His parents were when he was 6 yrs old. Mother History Unknown: Yes Family Medical History: Cancer Additional Family Medical History / Comment(s): Pt states mother had some form of cancer which she from at the age of 77yrs. <Teddy Arrieta - Last Filed: 07/22/23 17:45> General Exam Limitations: no limitations General appearance: alert, in no apparent distress Eye exam: Present: normal appearance Neck exam: Present: normal inspection Extremities exam: Present: normal inspection Back exam: Present: normal inspection Neurological exam: Present: alert, oriented X3 <Teddy Arrieta - Last Filed: 07/22/23 17:45> Limitations: no limitations General appearance: alert, in no apparent distress Head exam: Present: atraumatic, normocephalic, normal inspection Eye exam: Present: normal appearance Respiratory exam: Present: normal lung sounds bilaterally. Absent: respiratory distress, wheezes, rales, rhonchi, stridor Cardiovascular Exam: Present: regular rate, normal rhythm, normal heart sounds. Absent: systolic murmur, diastolic murmur, rubs, gallop, clicks GI/Abdominal exam: Present: soft, tenderness (LLQ), normal bowel sounds. Absent: distended Neurological exam: Present: alert, oriented X3, CN II-XII intact Psychiatric exam: Present: normal affect, normal mood Skin exam: Present: warm, dry, intact, normal color. Absent: rash <Dionne Jason - Last Filed: 07/22/23 22:27> Course Vital Signs 07/22/23 07/22/23 07/22/23 17:43 21:13 21:58 Temperature 99.7 F H 98.7 F Pulse Rate 66 73 Respiratory 18 20 Rate Blood Pressure 123/61 142/69 O2 Sat by Pulse 99 98 Oximetry Medical Decision Making <Teddy Arrieta - Last Filed: 07/22/23 17:45> - Lab Data Result diagrams: 07/22/23 19:35 07/22/23 19:35 - Radiology Data Radiology results: report reviewed, image reviewed <Dionne Jason - Last Filed: 07/22/23 22:27> - Medical Decision Making Quicknote performed. Signed Teddy Arrieta PA-C (Teddy Arrieta) This is a 77-year-old male who presents to the emergency department for abdominal pain. Was pt. sent in by a medical professional or institution? @ -No Did you speak to anyone other than the patient for history? @ -No Did you review nursing and triage notes? @ -Yes, and I agree, it is accurate with regards to the patient's symptoms. Were old charts reviewed? @ -Yes, CT scan of the abdomen/pelvis obtained yesterday revealing acute uncomplicated diverticulitis. Differential Diagnosis? @ -Differential Abdominal Pain Men: Appendicitis, cholecystitis, diverticulosis, ischemic bowel, pancreatitis, hepatitis, UTI, gastroenteritis, AAA, incarcerated hernia, bowel obstruction, constipation, inflammatory bowel, hepatitis, peptic ulcer disease, splenic infarction, perforated viscus, testicular torsion, this is not meant to be an all-inclusive list EKG interpreted by me (3pts min.)? @ -Not obtained X-rays interpreted by me (1pt min.)? @ -Not obtained CT interpreted by me (1pt min.)? @ -Not obtained U/S interpreted by me (1pt. min.)? @ -Not obtained What testing was considered but not performed? (CT, X-rays, U/S, labs)? Why? @ -None What meds were considered but not given? Why? @ -None Did you discuss the management of the patient with other professionals? @ -Yes, Angie Fischer with [facility] who accepts the patient for admission. Did you reconcile home meds? @ -No Was smoking cessation discussed for >3mins.? @ -No Was critical care preformed (if so, how long)? @ -No Were there social determinants of health that impacted care today? How? (Homelessness, low income, unemployed, alcoholism, drug addiction, transportation, low edu. Level, literacy, decrease access to med. care, half-way, rehab)? @ -No Was there de-escalation of care discussed even if they declined? (Discuss DNR or withdrawal of care, Hospice)? @ -No What co-morbidities impacted this encounter? (DM, HTN, Smoking, COPD, CAD, Cancer, CVA, Hep., AIDS, mental health diagnosis, sleep apnea, morbid obesity)? @ -CAD, DM, HLD, HTN, morbid obesity Was patient admitted / discharged? @ -Admitted. Lab work obtained revealing a mildly elevated lactic acid of 2.4. Lab work was otherwise nonactionable. Computed tomography scan of the abdomen and pelvis obtained yesterday reviewed revealing acute uncomplicated diverticulitis at the distal descending colon. Given that he is taking his medication as prescribed and the pain is now uncontrollable, patient admitted to medicine for further management with IV antibiotics and pain medication. Blood cultures were obtained and he was started on IV Zosyn. Undiagnosed new problem with uncertain prognosis? @ -None Drug Therapy requiring intensive monitoring for toxicity (Heparin, Nitro, Insulin, Cardizem)? @ -None Were any procedures done? @ -None Diagnosis/symptom? @ -Diverticulitis Acute, or Chronic, or Acute on Chronic? @ -Acute Uncomplicated (without systemic symptoms) or Complicated (systemic symptoms)? @ -Complicated Side effects of treatment? @ -None Exacerbation, Progression, or Severe Exacerbation] @ -Progression Poses a threat to life or bodily function? @ -The pain is making it difficult for him to function. This case was discussed in detail with the attending ED physician, Dr. Stone. Presentation, findings, and treatment plan discussed in detail as well. (Dionne Jason) - Lab Data Lab Results 07/22/23 07/22/23 07/22/23 Range/Units 16:51 19:35 19:35 WBC 6.5 (3.8-10.6) k/uL RBC 4.03 L (4.30-5.90) m/uL Hgb 13.4 (13.0-17.5) gm/dL Hct 40.5 (39.0-53.0) % MCV 100.4 H (80.0-100.0) fL MCH 33.2 (25.0-35.0) pg MCHC 33.1 (31.0-37.0) g/dL RDW 13.0 (11.5-15.5) % Plt Count 63 L (150-450) k/uL MPV 8.8 Neutrophils % 74 % Lymphocytes % 14 % Monocytes % 8 % Eosinophils % 2 % Basophils % 0 % Neutrophils # 4.8 (1.3-7.7) k/uL Lymphocytes # 0.9 L (1.0-4.8) k/uL Monocytes # 0.5 (0-1.0) k/uL Eosinophils # 0.2 (0-0.7) k/uL Basophils # 0.0 (0-0.2) k/uL Manual Slide Review Performed Polychromasia Present Sodium 135 L (137-145) mmol/L Potassium 5.1 (3.5-5.1) mmol/L Chloride 103 (98-107) mmol/L Carbon Dioxide 20 L (22-30) mmol/L Anion Gap 12 mmol/L BUN 12 (9-20) mg/dL Creatinine 0.74 (0.66-1.25) mg/dL Est GFR (CKD-EPI)AfAm >90 (>60 ml/min/1.73 sqM) Est GFR (CKD-EPI)NonAf >90 (>60 ml/min/1.73 sqM) Glucose 163 H (74-99) mg/dL Lactic Ac Sepsis Rflx Plasma Lactic Acid Evgeny (0.7-2.0) mmol/L Calcium 8.9 (8.4-10.2) mg/dL Total Bilirubin 2.2 H (0.2-1.3) mg/dL AST 56 (17-59) U/L ALT 38 (4-49) U/L Alkaline Phosphatase 106 (38-126) U/L Total Protein 7.7 (6.3-8.2) g/dL Albumin 4.3 (3.5-5.0) g/dL Urine Color Yellow Urine Appearance Clear (Clear) Urine pH 5.5 (5.0-8.0) Ur Specific [place] 1.022 (1.001-1.035) Urine Protein Trace H (Negative) Urine Glucose (UA) Trace H (Negative) Urine Ketones Negative (Negative) Urine Blood Negative (Negative) Urine Nitrite Negative (Negative) Urine Bilirubin Negative (Negative) Urine Urobilinogen 2.0 (<2.0) mg/dL Ur Leukocyte Esterase Negative (Negative) 07/22/23 07/22/23 Range/Units 19:35 20:12 WBC (3.8-10.6) k/uL RBC (4.30-5.90) m/uL Hgb (13.0-17.5) gm/dL Hct (39.0-53.0) % MCV (80.0-100.0) fL MCH (25.0-35.0) pg MCHC (31.0-37.0) g/dL RDW (11.5-15.5) % Plt Count (150-450) k/uL MPV Neutrophils % % Lymphocytes % % Monocytes % % Eosinophils % % Basophils % % Neutrophils # (1.3-7.7) k/uL Lymphocytes # (1.0-4.8) k/uL Monocytes # (0-1.0) k/uL Eosinophils # (0-0.7) k/uL Basophils # (0-0.2) k/uL Manual Slide Review Polychromasia Sodium (137-145) mmol/L Potassium (3.5-5.1) mmol/L Chloride (98-107) mmol/L Carbon Dioxide (22-30) mmol/L Anion Gap mmol/L BUN (9-20) mg/dL Creatinine (0.66-1.25) mg/dL Est GFR (CKD-EPI)AfAm (>60 ml/min/1.73 sqM) Est GFR (CKD-EPI)NonAf (>60 ml/min/1.73 sqM) Glucose (74-99) mg/dL Lactic Ac Sepsis Rflx Y Plasma Lactic Acid Evgeny 2.4 H* (0.7-2.0) mmol/L Calcium (8.4-10.2) mg/dL Total Bilirubin (0.2-1.3) mg/dL AST (17-59) U/L ALT (4-49) U/L Alkaline Phosphatase (38-126) U/L Total Protein (6.3-8.2) g/dL Albumin (3.5-5.0) g/dL Urine Color Urine Appearance (Clear) Urine pH (5.0-8.0) Ur Specific [place] (1.001-1.035) Urine Protein (Negative) Urine Glucose (UA) (Negative) Urine Ketones (Negative) Urine Blood (Negative) Urine Nitrite (Negative) Urine Bilirubin (Negative) Urine Urobilinogen (<2.0) mg/dL Ur Leukocyte Esterase (Negative) Disposition <Teddy Arrieta - Last Filed: 07/22/23 17:45> <Dionne Jason - Last Filed: 07/22/23 22:27> Clinical Impression: Diverticulitis Disposition: ADMITTED IP TO THIS HOSP
[2023-07-22 20:17] LABS: Basophils % (A) 0 %; Eosinophils # (A) 0.2 k/uL (0-0.7); Eosinophils % (A) 2 %; HCT 40.5 % (39.0-53.0); HGB 13.4 gm/dL (13.0-17.5); Lymphocytes # (A) 0.9 k/uL (1.0-4.8); Lymphocytes % (A) 14 %; MCH 33.2 pg (25.0-35.0); MCHC 33.1 g/dL (31.0-37.0); MCV 100.4 fL (80.0-100.0); Mean Platelet Volume 8.8; Monocytes # (A) 0.5 k/uL (0-1.0); Monocytes % (A) 8 %; Neutrophils # (A) 4.8 k/uL (1.3-7.7); Neutrophils % (A) 74 %; RBC 4.03 m/uL (4.30-5.90); WBC 6.5 k/uL (3.8-10.6)
[2023-07-22 20:18] LABS: ALT 38 U/L (4-49); AST 56 U/L (17-59); African American GFR (CKD) >90 (>60 ml/min/1.73 sqM); Albumin 4.3 g/dL (3.5-5.0); Alkaline Phosphatase 106 U/L (38-126); Anion Gap 12 mmol/L; Blood Urea Nitrogen 12 mg/dL (9-20); Calcium 8.9 mg/dL (8.4-10.2); Carbon Dioxide 20 mmol/L (22-30); Chloride 103 mmol/L (98-107); Glucose 163 mg/dL (74-99); Non-African American GFR(CKD) >90 (>60 ml/min/1.73 sqM); Sodium 135 mmol/L (137-145); Total Bilirubin 2.2 mg/dL (0.2-1.3); Total Protein 7.7 g/dL (6.3-8.2)
[2023-07-22 20:22] LABS: Potassium 5.1 mmol/L (3.5-5.1)
[2023-07-22 21:12] LABS: Appearance,Urine Clear (Clear); Bilirubin,Urine Negative (Negative); Blood,Urine Negative (Negative); Color,Urine Yellow; Glucose,Urine (UA) Trace (Negative); Ketones,Urine Negative (Negative); Leukocyte Esterase,Urine Negative (Negative); Nitrite,Urine Negative (Negative); PH, Urine 5.5 (5.0-8.0); Protein,Urine Trace (Negative); Specific Gravity,Urine 1.022 (1.001-1.035)
[2023-07-22] MEDS ORDERED: KETOROLAC 15 MG/ML 1 ML VIAL IVP STA (21:16)
[2023-07-22] MEDS ORDERED: HYDROmorphone 0.5 MG/0.5 ML SYRINGE IVP STA (21:16)
[2023-07-22 21:20] LABS: Platelet Count 63 k/uL (150-450); Polychromasia Present
[2023-07-22] MEDS ORDERED: ACETAMINOPHEN TAB 325 MG TAB PO PRN (21:39)
[2023-07-22] MEDS ORDERED: IBUPROFEN 400 MG TAB PO PRN (21:39)
[2023-07-22] MEDS ORDERED: NALOXONE 0.4 MG/ML 1 ML VIAL IV PRN (21:39)
[2023-07-22] MEDS ORDERED: ONDANSETRON 4 MG/2 ML VIAL IVP PRN (21:39)
[2023-07-22] MEDS ORDERED: HYDROmorphone 0.5 MG/0.5 ML SYRINGE IVP PRN (21:39)
[2023-07-22] MEDS ORDERED: HYDROmorphone 1 MG/ML 1 ML SYRINGE IVP PRN (21:39)
[2023-07-22] MEDS ORDERED: KETOROLAC 15 MG/ML 1 ML VIAL IVP PRN (21:39)
[2023-07-22] MEDS ORDERED: SODIUM CHLORIDE 0.9% 1,000 ML IV STA (21:46)
[2023-07-22] MEDS: PIPERACILLIN-TAZOBACTAM 3.375 GM in SODIUM CHLORIDE 0.9% 100 ML IVPB SCH (22:13)
[2023-07-22] MEDS ORDERED: NITROGLYCERIN SL TABS 0.4 MG TAB SUBLINGUAL PRN (23:20)
[2023-07-23] MEDS ORDERED: ALBUTEROL NEBULIZED 2.5 MG/3 ML INHALATION PRN
[2023-07-23] MEDS: PIPERACILLIN-TAZOBACTAM 3.375 GM in SODIUM CHLORIDE 0.9% 100 ML IVPB SCH ×2 (06:01→16:00)
[2023-07-23 06:30] LABS: Glucose,Whole Blood 212 mg/dL (70-110)
[2023-07-23] MEDS: allopurinoL 100 MG TAB PO SCH (08:54)
[2023-07-23] MEDS: FERROUS SULFATE 325 MG TAB PO SCH (08:57)
[2023-07-23] MEDS: MAGNESIUM OXIDE 400 MG TAB PO SCH (08:57)
[2023-07-23] MEDS: ATORVASTATIN 80 MG TAB PO SCH (08:58)
[2023-07-23] MEDS: ASPIRIN 81 MG PO SCH (08:58)
[2023-07-23] MEDS ORDERED: metFORMIN 500 MG TAB PO SCH (09:00)
[2023-07-23] MEDS ORDERED: DEXTROSE 50% SYRINGE 50 ML IVP PRN ×2 (09:53)
[2023-07-23] MEDS: SERTRALINE 25 MG TAB PO SCH (10:39)
[2023-07-23] MEDS: carvediloL 12.5 MG TAB PO SCH (10:39)
[2023-07-23] MEDS: INSULN ASP PRT/INSULIN ASPART 100 UNIT/ML 10 ML VIAL SQ SCH (10:39)
--- NOTE | 2023-07-23 11:26 | P.GSCN ---
History of Present Illness Consult date: 07/23/23 History of present illness: CHIEF COMPLAINT: Abdominal pain HISTORY OF PRESENT ILLNESS: This is a 77-year-old male with a known history of diverticulitis. Patient presents for hospital with complaints of left lower quadrant abdominal pain 3 days. Patient reports the pain continued to worsen on Friday and therefore came into the ER at that point he was diagnosed with diverticulitis and discharged home with Augmentin. Patient reports that his pain continued to progress and therefore he came into the hospital for evaluation. He does report nausea. He also is having bowel movements. Patient reports that he has been eating a lot of tomato sandwiches. Last EGD and colonoscopy was in June 2021 had revealed gastric ulcers and diverticulosis. Patient also has a history of alcoholic liver cirrhosis. Computed tomography scan abdomen had shown evidence of mild wall thickening of the distal descending colon with surrounding fat felt likely to reflect a mild complicated acute diverticulitis. Surgical consult placed for diverticulitis. PAST MEDICAL HISTORY: Blood Disorder, Coronary Artery Disease (CAD), Chest Pain / Angina, Heart Failure, COPD, Diabetes Mellitus, GERD/Reflux, Hyperlipidemia, Hypertension, Myocardial Infarction ([place]), Pneumonia, Supraventricular Tachycardia (SVT), Vascular Disorder, ischemic cardiomyopathy, nonsustained ventriclar arrhythmia, systolic heart failure, [place] x 2 in 2001, 1994, thrombocytopenia, kidney stones, gout bilateral feet/ toes, hx bilat tinnitis, stomach ulcers 2020 PAST SURGICAL HISTORY: See below. Cardiac Ablation, Cholecystectomy, Heart Catheterization, Heart Catheterization With Stent, Joint Replacement, MEDICATIONS: See below ALLERGIES: See below SOCIAL HISTORY: No illicit drug use. EtOH daily REVIEW OF SYSTEMS: CONSTITUTIONAL: Denies fever or chills. HEENT: Denies blurred vision, vision changes, or eye pain. Denies hemoptysis CARDIOVASCULAR: Denies chest pain or pressure. RESPIRATORY: No shortness of breath. GASTROINTESTINAL: See HPI for pertinent findings HEMATOLOGIC: Denies bleeding disorders. GENITOURINARY: Denies any blood in urine or increased urinary frequency. SKIN: Denies pruitis. Denies rash. PHYSICAL EXAM: VITAL SIGNS: Reviewed GENERAL: Well-developed in no acute distress. HEENT: No sclera icterus. Extraocular movements grossly intact. Moist buccal mucosa. Head is atraumatic, normocephalic. No nasal drainage. ABDOMEN: Soft. Obese. Nondistended. Left lower quadrant tenderness with palpation NEUROLOGIC: Alert and oriented. Cranial nerves II through XII grossly intact. LABORATORY DATA: WBC 6.5 Hgb 13.4 platelets 63 Sodium 135 potassium is 5.1 creatinine 0.74 Lactic acid 2.3 Total bili 2.2 AST 56 ALT 38 alk phos 106 IMAGING: Computed tomography scan abdomen and pelvis there is mild wall thickening of the distal descending colon with surrounding dirty fat. The findings are felt to reflect mild uncomplicated acute diverticulitis. Splenomegaly and probable cirrhotic liver disease ASSESSMENT: 1. Acute diverticulitis of the distal distending colon PLAN: -Okay for clear liquids -Continue IV antibiotics -Continue to monitor -Continue supportive care Thank you for this consultation Physician Drafter Civil (Cad) note has been reviewed by physician. Signing provider agrees with the documented findings, assessment, and plan of care. Past Medical History Past Medical History: Blood Disorder, Coronary Artery Disease (CAD), Chest Pain / Angina, Heart Failure, COPD, Diabetes Mellitus, GERD/Reflux, Hyperlipidemia, Hypertension, Myocardial Infarction ([place]), Pneumonia, Supraventricular Tachycardia (SVT), Vascular Disorder Additional Past Medical History / Comment(s): Ischemic CMP, nonsustained ventriclar arrhythmia, systolic heart failure, [place] x 2 in 2001, 1994, thrombocytopenia, kidney stones, gout bilateral feet/ toes, hx bilat tinnitis, stomach ulcers 2020 Last Myocardial Infarction Date:: 2001 History of Any Multi-Drug Resistant Organisms: None Reported Past Surgical History: Cardiac Ablation, Cholecystectomy, Heart Catheterization, Heart Catheterization With Stent, Joint Replacement, Orthopedic Surgery Additional Past Surgical History / Comment(s): PCIs with total 6 stents per patient, cardiac ablation-AVRNT, EPS, R knee arthroscopy, bilateral total knee replacements-L side became infected-had I&D, bilateral shoulder rotator cuff surgeries with L side done 3 times, L ankle surgery, bilateral carpal tunnel releases, colonoscopy. EGD Past Anesthesia/Blood Transfusion Reactions: No Reported Reaction Additional Past Anesthesia/Blood Transfusion Reaction / Comm: never had a blood tranfusion Date of Last Stent Placement:: 02/05/19 Past Psychological History: No Psychological Hx Reported Smoking Status: Former smoker Past Alcohol Use History: Daily Past Drug Use History: None Reported - Past Family History Father History Unknown: Yes Additional Family Medical History / Comment(s): Pt does not know his father's history. His parents were when he was 6 yrs old. Mother History Unknown: Yes Family Medical History: Cancer Additional Family Medical History / Comment(s): Pt states mother had some form of cancer which she from at the age of 77yrs. Medications and Allergies Home Medications Medication Instructions Recorded Confirmed Type metFORMIN HCL [Glucophage] 1,000 mg PO DAILY 06/07/14 07/22/23 History Ferrous Sulfate [Iron (65 MG 325 mg PO DAILY 03/07/16 07/22/23 History Elemental)] Magnesium Oxide [Mag-Ox] 250 mg PO DAILY 07/11/19 07/22/23 History Nitroglycerin Sl Tabs [Nitrostat] 0.4 mg SUBLINGUAL Q5M PRN 07/17/21 07/22/23 History allopurinoL [Zyloprim] 100 mg PO DAILY 07/17/21 07/22/23 History carvediloL [Coreg] 12.5 mg PO DAILY 11/27/21 07/22/23 History Aspirin EC [Ecotrin Low Dose] 81 mg PO DAILY 02/10/22 07/22/23 History lisinopriL [Zestril] 2.5 mg PO DAILY 02/10/22 07/22/23 History Atorvastatin [Lipitor] 80 mg PO DAILY 03/07/22 07/22/23 History Insulin NPH Hum/Reg Insulin Hm 20 unit SQ DAILY 10/09/22 07/22/23 History [NovoLIN 70-30 100 UNIT/ML VIAL] Amoxic-Pot Clav 875-125Mg 1 tab PO Q12HR 10 Days #20 tab 07/21/23 07/22/23 Rx [Augmentin 875-125] Albuterol Inhaler [Ventolin Hfa 2 puff INHALATION RT-Q4H PRN 07/22/23 07/22/23 History Inhaler] Sertraline [Zoloft] 25 mg PO DAILY 07/22/23 07/22/23 History Allergies Allergy/AdvReac Type Severity Reaction Status Date / Time No Known Allergies Allergy Verified 07/22/23 22:46 Surgical - Exam Vital Signs Temp Pulse Resp BP Pulse Ox 99.7 F H 66 18 123/61 99 07/22/23 17:43 07/22/23 17:43 07/22/23 17:43 07/22/23 17:43 07/22/23 17:43 Results - Labs 07/22/23 19:35 07/22/23 19:35 Abnormal Lab Results - Last 24 Hours (Table) 07/22/23 07/22/23 07/22/23 Range/Units 16:51 19:35 19:35 RBC 4.03 L (4.30-5.90) m/uL MCV 100.4 H (80.0-100.0) fL Plt Count 63 L (150-450) k/uL Lymphocytes # 0.9 L (1.0-4.8) k/uL Sodium 135 L (137-145) mmol/L Carbon Dioxide 20 L (22-30) mmol/L Glucose 163 H (74-99) mg/dL POC Glucose (mg/dL) (70-110) mg/dL Plasma Lactic Acid Evgeny (0.7-2.0) mmol/L Total Bilirubin 2.2 H (0.2-1.3) mg/dL Urine Protein Trace H (Negative) Urine Glucose (UA) Trace H (Negative) 07/22/23 07/22/23 07/23/23 Range/Units 19:35 23:22 06:29 RBC (4.30-5.90) m/uL MCV (80.0-100.0) fL Plt Count (150-450) k/uL Lymphocytes # (1.0-4.8) k/uL Sodium (137-145) mmol/L Carbon Dioxide (22-30) mmol/L Glucose (74-99) mg/dL POC Glucose (mg/dL) 212 H (70-110) mg/dL Plasma Lactic Acid Evgeny 2.4 H* 2.3 H* (0.7-2.0) mmol/L Total Bilirubin (0.2-1.3) mg/dL Urine Protein (Negative) Urine Glucose (UA) (Negative) Diabetes panel 07/22/23 Range/Units 19:35 Sodium 135 L (137-145) mmol/L Potassium 5.1 (3.5-5.1) mmol/L Chloride 103 (98-107) mmol/L Carbon Dioxide 20 L (22-30) mmol/L BUN 12 (9-20) mg/dL Creatinine 0.74 (0.66-1.25) mg/dL Glucose 163 H (74-99) mg/dL Calcium 8.9 (8.4-10.2) mg/dL AST 56 (17-59) U/L ALT 38 (4-49) U/L Alkaline Phosphatase 106 (38-126) U/L Total Protein 7.7 (6.3-8.2) g/dL Albumin 4.3 (3.5-5.0) g/dL Calcium panel 07/22/23 Range/Units 19:35 Calcium 8.9 (8.4-10.2) mg/dL Albumin 4.3 (3.5-5.0) g/dL Pituitary panel 07/22/23 Range/Units 19:35 Sodium 135 L (137-145) mmol/L Potassium 5.1 (3.5-5.1) mmol/L Chloride 103 (98-107) mmol/L Carbon Dioxide 20 L (22-30) mmol/L BUN 12 (9-20) mg/dL Creatinine 0.74 (0.66-1.25) mg/dL Glucose 163 H (74-99) mg/dL Calcium 8.9 (8.4-10.2) mg/dL Adrenal panel 07/22/23 Range/Units 19:35 Sodium 135 L (137-145) mmol/L Potassium 5.1 (3.5-5.1) mmol/L Chloride 103 (98-107) mmol/L Carbon Dioxide 20 L (22-30) mmol/L BUN 12 (9-20) mg/dL Creatinine 0.74 (0.66-1.25) mg/dL Glucose 163 H (74-99) mg/dL Calcium 8.9 (8.4-10.2) mg/dL Total Bilirubin 2.2 H (0.2-1.3) mg/dL AST 56 (17-59) U/L ALT 38 (4-49) U/L Alkaline Phosphatase 106 (38-126) U/L Total Protein 7.7 (6.3-8.2) g/dL Albumin 4.3 (3.5-5.0) g/dL
[2023-07-23 12:35] LABS: Glucose,Whole Blood 237 mg/dL (70-110)
--- NOTE | 2023-07-23 12:43 | P.HPIM ---
History of Present Illness H&P Date: 07/23/23 History of present illness; patient is 77-year-old gentleman with past medical h istory significant for hyperlipidemia, diabetes mellitus, hypertension who presented to the ER because of abdominal pain. Patient was seen in the ER 24 hours ago because of abdominal pain that started 1 day prior. Patient's pain was located in left lower quadrant, constant, severe intensity, nonradiating, associated with some nausea. Because of the abdominal pain patient came to the ER and had a computed tomography scan done which showed mild wall thickening of the distal descending Colon Concerning for uncomplicated acute diverticulitis, showed splenomegaly and possible chronic liver disease. Patient was discharged on oral Augmentin with pain medications but patient returned within 24 hours as his pain was worsening. There was no complain of any chest pain or shortness of breath. Denies any fever or chills. denies any nausea vomiting Initial lab work done in the ER showed WBC 6.5, hemoglobin 13.4, platelet count 63, sodium 135, potassium 5.1, BUN 12, creatinine 0.74, bilirubin 2.2, patient admitted to medicine service REVIEW OF SYSTEMS: CONSTITUTIONAL: As mentioned in HPI HEENT: No recent visual problems or hearing problems. Denied any sore throat. CARDIOVASCULAR: No chest pain, orthopnea, PND, no palpitations, no syncope. PULMONARY: No shortness of breath, no cough, no hemoptysis. GASTROINTESTINAL: As mentioned in HPI NEUROLOGICAL: No headaches, no weakness, no numbness. HEMATOLOGICAL: Denies any bleeding or petechiae. GENITOURINARY: Denies any burning micturition, frequency, or urgency. MUSCULOSKELETAL/RHEUMATOLOGICAL: Denies any joint pain, swelling, or any muscle pain. ENDOCRINE: Denies any polyuria or polydipsia. The rest of the 14-point review of systems is negative. PHYSICAL EXAMINATION: GENERAL: The patient is alert and oriented x3, not in any acute distress. Well developed, well nourished. HEENT: Pupils are round and equally reacting to light. EOMI. No scleral icterus. No conjunctival pallor. Normocephalic, atraumatic. No pharyngeal erythema. No thyromegaly. CARDIOVASCULAR: S1 and S2 present. No murmurs, rubs, or gallops. PULMONARY: Chest is clear to auscultation, no wheezing or crackles. ABDOMEN: Soft, nontender, nondistended, normoactive bowel sounds. No palpable organomegaly. MUSCULOSKELETAL: No joint swelling or deformity. EXTREMITIES: No cyanosis, clubbing, or pedal edema. NEUROLOGICAL: Gross neurological examination did not reveal any focal deficits. SKIN: No rashes. Assessment and plan Acute diverticulitis Thrombocytopenia Hyperbilirubinemia Splenomegaly Hypertension Hyperlipidemia Diabetes mellitus Monitor vital signs Monitor CBC Monitor CMP Continue IV fluids Continue pain management Continue IV Zosyn Consult surgery Resume home meds Labs and medication were reviewed.. Continue same treatment. Continue with symptomatic treatment. Resume home medication. Monitor labs and vitals. DVT and GI prophylaxis. Further recommendations as per clinical course of the patient Dictation was produced using [employer] dictation software. please excuse any grammatical, word or spelling errors. Past Medical History Past Medical History: Blood Disorder, Coronary Artery Disease (CAD), Chest Pain / Angina, Heart Failure, COPD, Diabetes Mellitus, GERD/Reflux, Hyperlipidemia, Hypertension, Myocardial Infarction (AL), Pneumonia, Supraventricular Tachycar nelson (SVT), Vascular Disorder Additional Past Medical History / Comment(s): Ischemic CMP, nonsustained ventriclar arrhythmia, systolic heart failure, AL x 2 in 2001, 1994, thro mbocytopenia, kidney stones, gout bilateral feet/ toes, hx bilat tinnitis, stomach ulcers 2020 Last Myocardial Infarction Date:: 2001 History of Any Multi-Drug Resistant Organisms: None Reported Past Surgical History: Cardiac Ablation, Cholecystectomy, Heart Catheterization, Heart Catheterization With Stent, Joint Replacement, Orthopedic Surgery Additional Past Surgical History / Comment(s): PCIs with total 6 stents per patient, cardiac ablation-AVRNT, EPS, R knee arthroscopy, bilateral total knee replacements-L side became infected-had I&D, bilateral shoulder rotator cuff surgeries with L side done 3 times, L ankle surgery, bilateral carpal tunnel releases, colonoscopy. EGD Past Anesthesia/Blood Transfusion Reactions: No Reported Reaction Additional Past Anesthesia/Blood Transfusion Reaction / Comment(s): never had a blood tranfusion Date of Last Stent Placement:: 02/05/19 Past Psychological History: No Psychological Hx Reported Smoking Status: Former smoker Past Alcohol Use History: Daily Past Drug Use History: None Reported - Past Family History Father History Unknown: Yes Additional Family Medical History / Comment(s): Pt does not know his father's history. His parents were when he was 6 yrs old. Mother History Unknown: Yes Family Medical History: Cancer Additional Family Medical History / Comment(s): Pt states mother had some form of cancer which she from at the age of 77yrs. Medications and Allergies Home Medications Medication Instructions Recorded Confirmed Type metFORMIN HCL [Glucophage] 1,000 mg PO DAILY 06/07/14 07/22/23 History Ferrous Sulfate [Iron (65 MG 325 mg PO DAILY 03/07/16 07/22/23 History Elemental)] Magnesium Oxide [Mag-Ox] 250 mg PO DAILY 07/11/19 07/22/23 History Nitroglycerin Sl Tabs [Nitrostat] 0.4 mg SUBLINGUAL Q5M PRN 07/17/21 07/22/23 History allopurinoL [Zyloprim] 100 mg PO DAILY 07/17/21 07/22/23 History carvediloL [Coreg] 12.5 mg PO DAILY 11/27/21 07/22/23 History Aspirin EC [Ecotrin Low Dose] 81 mg PO DAILY 02/10/22 07/22/23 History lisinopriL [Zestril] 2.5 mg PO DAILY 02/10/22 07/22/23 History Atorvastatin [Lipitor] 80 mg PO DAILY 03/07/22 07/22/23 History Insulin NPH Hum/Reg Insulin Hm 20 unit SQ DAILY 10/09/22 07/22/23 History [NovoLIN 70-30 100 UNIT/ML VIAL] Amoxic-Pot Clav 875-125Mg 1 tab PO Q12HR 10 Days #20 tab 07/21/23 07/22/23 Rx [Augmentin 875-125] Albuterol Inhaler [Ventolin Hfa 2 puff INHALATION RT-Q4H PRN 07/22/23 07/22/23 History Inhaler] Sertraline [Zoloft] 25 mg PO DAILY 07/22/23 07/22/23 History Allergies Allergy/AdvReac Type Severity Reaction Status Date / Time No Known Allergies Allergy Verified 07/22/23 22:46 Physical Exam Vitals: Vital Signs Temp Pulse Resp BP Pulse Ox 07/23/23 08:44 18 116/55 98 07/23/23 07:30 98 F 59 L 18 102/51 94 L 07/23/23 04:04 69 20 132/67 99 07/22/23 21:58 73 20 142/69 98 07/22/23 21:13 98.7 F 07/22/23 17:43 99.7 F H 66 18 123/61 99 Intake and Output 07/22/23 07/23/23 07/23/23 22:59 06:59 14:59 Other: Weight 113.398 kg Results CBC & Chem 7: 07/22/23 19:35 07/22/23 19:35 Labs: Abnormal Lab Results - Last 24 Hours (Table) 07/22/23 07/22/23 07/22/23 Range/Units 16:51 19:35 19:35 RBC 4.03 L (4.30-5.90) m/uL MCV 100.4 H (80.0-100.0) fL Plt Count 63 L (150-450) k/uL Lymphocytes # 0.9 L (1.0-4.8) k/uL Sodium 135 L (137-145) mmol/L Carbon Dioxide 20 L (22-30) mmol/L Glucose 163 H (74-99) mg/dL POC Glucose (mg/dL) (70-110) mg/dL Plasma Lactic Acid Evgeny (0.7-2.0) mmol/L Total Bilirubin 2.2 H (0.2-1.3) mg/dL Urine Protein Trace H (Negative) Urine Glucose (UA) Trace H (Negative) 07/22/23 07/22/23 07/23/23 Range/Units 19:35 23:22 06:29 RBC (4.30-5.90) m/uL MCV (80.0-100.0) fL Plt Count (150-450) k/uL Lymphocytes # (1.0-4.8) k/uL Sodium (137-145) mmol/L Carbon Dioxide (22-30) mmol/L Glucose (74-99) mg/dL POC Glucose (mg/dL) 212 H (70-110) mg/dL Plasma Lactic Acid Evgeny 2.4 H* 2.3 H* (0.7-2.0) mmol/L Total Bilirubin (0.2-1.3) mg/dL Urine Protein (Negative) Urine Glucose (UA) (Negative)
[2023-07-23] MEDS: INSULIN ASPART (NovoLOG) 100 UNIT/ML VIAL SQ SCH ×3 (13:10→21:17)
[2023-07-23 18:30] LABS: Glucose,Whole Blood 189 mg/dL (70-110)
[2023-07-23] MEDS: SODIUM CHLORIDE 0.9% 1,000 ML IV SCH (18:40)
[2023-07-24] MEDS: PIPERACILLIN-TAZOBACTAM 3.375 GM in SODIUM CHLORIDE 0.9% 100 ML IVPB SCH ×2 (00:22→08:49)
[2023-07-24 02:46] VITALS: TEMP 98.2
[2023-07-24 03:01] LABS: Basophils % (A) 1 %; Eosinophils # (A) 0.1 k/uL (0-0.7); Eosinophils % (A) 4 %; HCT 35.1 % (39.0-53.0); HGB 11.6 gm/dL (13.0-17.5); Lymphocytes # (A) 0.7 k/uL (1.0-4.8); Lymphocytes % (A) 21 %; MCV 100.1 fL (80.0-100.0); Mean Platelet Volume 8.6; Monocytes # (A) 0.2 k/uL (0-1.0); Monocytes % (A) 7 %; Neutrophils # (A) 2.1 k/uL (1.3-7.7); Neutrophils % (A) 66 %; Platelet Count 63 k/uL (150-450); RDW 12.9 % (11.5-15.5); WBC 3.2 k/uL (3.8-10.6)
[2023-07-24 06:08] LABS: Glucose,Whole Blood 184 mg/dL (70-110)
[2023-07-24] MEDS: SODIUM CHLORIDE 0.9% 1,000 ML IV SCH (06:16)
[2023-07-24] MEDS: INSULIN ASPART (NovoLOG) 100 UNIT/ML VIAL SQ SCH ×2 (06:16→12:15)
[2023-07-24 08:48] VITALS: BP 148/70; PULSE 67; RESP 15
[2023-07-24] MEDS: INSULN ASP PRT/INSULIN ASPART 100 UNIT/ML 10 ML VIAL SQ SCH (08:50)
[2023-07-24] MEDS: ASPIRIN 81 MG PO SCH (08:50)
[2023-07-24] MEDS: SERTRALINE 25 MG TAB PO SCH ×2 (08:50→08:53)
[2023-07-24] MEDS: carvediloL 12.5 MG TAB PO SCH (08:51)
[2023-07-24] MEDS: ATORVASTATIN 80 MG TAB PO SCH (08:51)
[2023-07-24] MEDS: allopurinoL 100 MG TAB PO SCH (08:51)
[2023-07-24] MEDS: FERROUS SULFATE 325 MG TAB PO SCH (08:51)
[2023-07-24] MEDS: MAGNESIUM OXIDE 400 MG TAB PO SCH (08:51)
[2023-07-24 09:46] LABS: ALT 31 U/L (10-49); AST 34 U/L (14-35); Albumin 3.9 d/dL (3.8-4.9); Albumin/Globulin Ratio 1.56 Ratio (1.60-3.17); Alkaline Phosphatase 93 U/L (41-126); BUN/Creat Ratio 9.67 Ratio (12.00-20.00); Blood Urea Nitrogen 8.7 mg/dL (9.0-27.0); Calcium 8.6 mg/dL (8.7-10.3); Carbon Dioxide 19.9 mmol/L (21.6-31.8); Chloride 105 mmol/L (96-109); Globulin 2.5 d/dL (1.6-3.3); Glucose 182 mg/dL (70-110); Potassium 4.4 mmol/L (3.5-5.5); Sodium 137 mmol/L (135-145); Total Protein 6.4 d/dL (6.2-8.2)
[2023-07-24 11:50] LABS: Glucose,Whole Blood 247 mg/dL (70-110)
--- NOTE | 2023-07-24 12:01 | P.PN ---
Subjective Progress Note Date: 07/24/23 CHIEF COMPLAINT: Diverticulitis HISTORY OF PRESENT ILLNESS: Patient denies any abdominal pain. Tolerating clear liquids. Asking for advancement of diet. Denies any nausea vomiting. Afebrile. WBC is 3.2 Hgb 11.6 platelets 63 lactic acid down to 1.8. PHYSICAL EXAM: VITAL SIGNS: Reviewed. GENERAL: Well-developed in no acute distress. ABDOMEN: Soft. Nondistended. Nontender. NEUROLOGIC: Alert and oriented. Cranial nerves II through XII grossly intact. ASSESSMENT: 1. Acute diverticulitis of the distal distending colon PLAN: -Advance diet to full liquids -Patient can be discharge from surgical standpoint. Advance diet as tolerated at home over the next couple of days -Recommended discharge with oral antibiotics -Patient follow-up with Dr. arita in 1 week in office Physician Assessment Clinician note has been reviewed by physician. Signing provider agrees with the documented findings, assessment, and plan of care. Objective - Vital Signs Vital signs: Vital Signs Temp 98.2 F 07/24/23 07:00 Pulse 67 07/24/23 08:48 Resp 15 07/24/23 08:48 BP 148/70 07/24/23 08:48 Pulse Ox 99 07/24/23 08:48 FiO2 Intake & Output 07/23/23 07/24/23 07/24/23 18:59 06:59 18:59 Intake Total 120 Balance 120 Weight 113.398 kg Intake: Oral 120 Other: Voiding Method Toilet # Voids 1 4 # Bowel Movements 1 - Labs CBC & Chem 7: 07/24/23 02:45 07/24/23 02:45 Labs: Abnormal Lab Results - Last 24 Hours (Table) 07/23/23 07/23/23 07/23/23 Range/Units 12:34 15:15 18:28 WBC (3.8-10.6) k/uL RBC (4.30-5.90) m/uL Hgb (13.0-17.5) gm/dL Hct (39.0-53.0) % MCV (80.0-100.0) fL Plt Count (150-450) k/uL Lymphocytes # (1.0-4.8) k/uL Carbon Dioxide (21.6-31.8) mmol/L Anion Gap (4.00-12.00) mmol/L BUN (9.0-27.0) mg/dL BUN/Creatinine Ratio (12.00-20.00) Ratio Glucose (70-110) mg/dL POC Glucose (mg/dL) 237 H 189 H (70-110) mg/dL Hemoglobin A1c (<=6.0) % Plasma Lactic Acid Evgeny 2.3 H* (0.7-2.0) mmol/L Calcium (8.7-10.3) mg/dL Albumin/Globulin Ratio (1.60-3.17) Ratio 07/23/23 07/24/23 07/24/23 Range/Units 20:13 02:45 02:45 WBC 3.2 L (3.8-10.6) k/uL RBC 3.50 L (4.30-5.90) m/uL Hgb 11.6 L (13.0-17.5) gm/dL Hct 35.1 L (39.0-53.0) % MCV 100.1 H (80.0-100.0) fL Plt Count 63 L (150-450) k/uL Lymphocytes # 0.7 L (1.0-4.8) k/uL Carbon Dioxide (21.6-31.8) mmol/L Anion Gap (4.00-12.00) mmol/L BUN (9.0-27.0) mg/dL BUN/Creatinine Ratio (12.00-20.00) Ratio Glucose (70-110) mg/dL POC Glucose (mg/dL) (70-110) mg/dL Hemoglobin A1c 8.5 H (<=6.0) % Plasma Lactic Acid Evgeny 2.3 H* (0.7-2.0) mmol/L Calcium (8.7-10.3) mg/dL Albumin/Globulin Ratio (1.60-3.17) Ratio 07/24/23 07/24/23 07/24/23 Range/Units 02:45 02:45 06:06 WBC (3.8-10.6) k/uL RBC (4.30-5.90) m/uL Hgb (13.0-17.5) gm/dL Hct (39.0-53.0) % MCV (80.0-100.0) fL Plt Count (150-450) k/uL Lymphocytes # (1.0-4.8) k/uL Carbon Dioxide 19.9 L (21.6-31.8) mmol/L Anion Gap 12.10 H (4.00-12.00) mmol/L BUN 8.7 L (9.0-27.0) mg/dL BUN/Creatinine Ratio 9.67 L (12.00-20.00) Ratio Glucose 182 H (70-110) mg/dL POC Glucose (mg/dL) 184 H (70-110) mg/dL Hemoglobin A1c (<=6.0) % Plasma Lactic Acid Evgeny 2.2 H* (0.7-2.0) mmol/L Calcium 8.6 L (8.7-10.3) mg/dL Albumin/Globulin Ratio 1.56 L (1.60-3.17) Ratio 07/24/23 Range/Units 11:47 WBC (3.8-10.6) k/uL RBC (4.30-5.90) m/uL Hgb (13.0-17.5) gm/dL Hct (39.0-53.0) % MCV (80.0-100.0) fL Plt Count (150-450) k/uL Lymphocytes # (1.0-4.8) k/uL Carbon Dioxide (21.6-31.8) mmol/L Anion Gap (4.00-12.00) mmol/L BUN (9.0-27.0) mg/dL BUN/Creatinine Ratio (12.00-20.00) Ratio Glucose (70-110) mg/dL POC Glucose (mg/dL) 247 H (70-110) mg/dL Hemoglobin A1c (<=6.0) % Plasma Lactic Acid Evgeny (0.7-2.0) mmol/L Calcium (8.7-10.3) mg/dL Albumin/Globulin Ratio (1.60-3.17) Ratio Microbiology - Last 24 Hours (Table) 07/22/23 21:45 Blood Culture - Preliminary Blood 07/22/23 21:30 Blood Culture - Preliminary Blood
--- NOTE | 2023-07-24 12:08 | P.DS ---
Providers Date of admission: 07/23/23 16:34 Expected date of discharge: 07/24/23 Attending physician: Alexandra Torres Consults: 07/23/23 09:47 Consult Physician Routine Consulting Provider: Julien Quiroz Consult Reason/Comments: Diverticulitis, abdominal pain Do you want consulting provider notified?: Yes Primary care physician: [facility] Course: Discharge diagnoses; Acute diverticulitis Thrombocytopenia Hyperbilirubinemia Splenomegaly Hypertension Hyperlipidemia Diabetes mellitus Hospital course; patient is 77-year-old gentleman with past medical history significant for hyperlipidemia, diabetes mellitus, hypertension who presented to the ER because of abdominal pain. Patient was seen in the ER 24 hours ago because of abdominal pain that started 1 day prior. Patient's pain was located in left lower quadrant, constant, severe intensity, nonradiating, associated with some nausea. Because of the abdominal pain patient came to the ER and had a computed tomography scan done which showed mild wall thickening of the distal descending Colon Concerning for uncomplicated acute diverticulitis, showed splenomegaly and possible chronic liver disease. Patient was discharged on oral Augmentin with pain medications but patient returned within 24 hours as his pain was worsening. There was no complain of any chest pain or shortness of breath. Denies any fever or chills. denies any nausea vomiting Initial lab work done in the ER showed WBC 6.5, hemoglobin 13.4, platelet count 63, sodium 135, potassium 5.1, BUN 12, creatinine 0.74, bilirubin 2.2, patient admitted to medicine service 07/24. Patient seen and examined. Patient abdominal pain has resolved, current tolerating full liquid diet. Surgery cleared the patient for discharge. Being discharged on oral Augmentin, patient already has prescription from prior visit PHYSICAL EXAMINATION: GENERAL: The patient is alert and oriented x3, not in any acute distress. Well developed, well nourished. HEENT: Pupils are round and equally reacting to light. EOMI. No scleral icterus. No conjunctival pallor. Normocephalic, atraumatic. No pharyngeal erythema. No thyromegaly. CARDIOVASCULAR: S1 and S2 present. No murmurs, rubs, or gallops. PULMONARY: Chest is clear to auscultation, no wheezing or crackles. ABDOMEN: Soft, nontender, nondistended, normoactive bowel sounds. No palpable organomegaly. MUSCULOSKELETAL: No joint swelling or deformity. EXTREMITIES: No cyanosis, clubbing, or pedal edema. NEUROLOGICAL: Gross neurological examination did not reveal any focal deficits. SKIN: No rashes. Dictation was produced using [employer] dictation software. please excuse any grammatical, word or spelling errors. Patient Condition at Discharge: Good Plan - Discharge Summary Discharge Rx Participant: Yes New Discharge Prescriptions: Continue metFORMIN HCL [Glucophage] 1,000 mg PO DAILY Ferrous Sulfate [Iron (65 MG Elemental)] 325 mg PO DAILY Magnesium Oxide [Mag-Ox] 250 mg PO DAILY allopurinoL [Zyloprim] 100 mg PO DAILY carvediloL [Coreg] 12.5 mg PO DAILY lisinopriL [Zestril] 2.5 mg PO DAILY Nitroglycerin Sl Tabs [Nitrostat] 0.4 mg SUBLINGUAL Q5M PRN PRN Reason: Chest Pain Aspirin EC [Ecotrin Low Dose] 81 mg PO DAILY Atorvastatin [Lipitor] 80 mg PO DAILY Insulin NPH Hum/Reg Insulin Hm [NovoLIN 70-30 100 UNIT/ML VIAL] 20 unit SQ DAILY Amoxic-Pot Clav 875-125Mg [Augmentin 875-125] 1 tab PO Q12HR 10 Days #20 tab Sertraline [Zoloft] 25 mg PO DAILY Albuterol Inhaler [Ventolin Hfa Inhaler] 2 puff INHALATION RT-Q4H PRN PRN Reason: Shortness Of Breath Discharge Medication List metFORMIN HCL [Glucophage] 1,000 mg PO DAILY 06/07/14 [History] Ferrous Sulfate [Iron (65 MG Elemental)] 325 mg PO DAILY 03/07/16 [History] Magnesium Oxide [Mag-Ox] 250 mg PO DAILY 07/11/19 [History] Nitroglycerin Sl Tabs [Nitrostat] 0.4 mg SUBLINGUAL Q5M PRN 07/17/21 [History] allopurinoL [Zyloprim] 100 mg PO DAILY 07/17/21 [History] carvediloL [Coreg] 12.5 mg PO DAILY 11/27/21 [History] Aspirin EC [Ecotrin Low Dose] 81 mg PO DAILY 02/10/22 [History] lisinopriL [Zestril] 2.5 mg PO DAILY 02/10/22 [History] Atorvastatin [Lipitor] 80 mg PO DAILY 03/07/22 [History] Insulin NPH Hum/Reg Insulin Hm [NovoLIN 70-30 100 UNIT/ML VIAL] 20 unit SQ DAILY 10/09/22 [History] Amoxic-Pot Clav 875-125Mg [Augmentin 875-125] 1 tab PO Q12HR 10 Days #20 tab 07/21/23 [Rx] Albuterol Inhaler [Ventolin Hfa Inhaler] 2 puff INHALATION RT-Q4H PRN 07/22/23 [History] Sertraline [Zoloft] 25 mg PO DAILY 07/22/23 [History] Follow up Appointment(s)/Referral(s): Carrie Rush MD [Primary Care Provider] - 1-2 days Julien Quiroz MD [STAFF PHYSICIAN] - 1 Week Discharge/Stand Alone Forms: AA Meetings [place], Who Do I Call?, Community Resources, Outpatient Counseling, Inp Substance Abuse Facilities Discharge Disposition: HOME SELF-CARE
== END 2023-07-24 14:08 | disposition home or self-care (01) | DRG 392 ==
LOC: EC 17:02 → 6NMEDSUR 21:40 → OBSVTOIN 07-23 16:34
PROVIDERS: ADMIT Hospitalist; ATTEND Hospitalist
DX: K57.32 Diverticulitis of large intestine without perforation or abscess without bleeding (principal); I50.22 Chronic systolic (congestive) heart failure; I11.0 Hypertensive heart disease with heart failure; I25.10 Atherosclerotic heart disease of native coronary artery without angina pectoris; K70.30 Alcoholic cirrhosis of liver without ascites; J44.9 Chronic obstructive pulmonary disease, unspecified; R16.1 Splenomegaly, not elsewhere classified; D69.6 Thrombocytopenia, unspecified; M10.9 Gout, unspecified; I25.2 Old myocardial infarction; Z87.01 Personal history of pneumonia (recurrent); I25.5 Ischemic cardiomyopathy; E78.5 Hyperlipidemia, unspecified; K21.9 Gastro-esophageal reflux disease without esophagitis; E11.9 Type 2 diabetes mellitus without complications; Z79.4 Long term (current) use of insulin; Z79.82 Long term (current) use of aspirin; Z79.84 Long term (current) use of oral hypoglycemic drugs; Z79.899 Other long term (current) drug therapy; Z87.11 Personal history of peptic ulcer disease; Z87.442 Personal history of urinary calculi; Z87.891 Personal history of nicotine dependence; Z96.653 Presence of artificial knee joint, bilateral; Z90.49 Acquired absence of other specified parts of digestive tract
CPT/HCPCS: 36415; 80053; 81003; 83036; 83605; 85025; 87040; 96361; 96365; 96366; 96375; 99285

== ENCOUNTER 2023-10-16 20:42 | Inpatient (IN) | payer MEDICARE ==
[2023-10-16] MEDS ORDERED: IBUPROFEN IV 800 MG in SODIUM CHLORIDE 0.9% 250 ML IV ONE (20:59)
[2023-10-16] MEDS ORDERED: IPRATROPIUM-ALBUTEROL 3 ML NEB INHALATION STA (20:59)
[2023-10-16] MEDS ORDERED: SODIUM CHLORIDE 0.9% 1,000 ML IV STA (20:59)
[2023-10-16] MEDS ORDERED: ACETAMINOPHEN IV (For NPO) 1,000 MG in EMPTY BAG 1 BAG IVPB STA (20:59)
[2023-10-16 21:18] LABS: Basophils % (A) 0 %; Eosinophils # (A) 0.1 k/uL (0-0.7); Eosinophils % (A) 2 %; HCT 32.7 % (39.0-53.0); HGB 11.5 gm/dL (13.0-17.5); Lymphocytes # (A) 0.7 k/uL (1.0-4.8); Lymphocytes % (A) 23 %; MCH 34.6 pg (25.0-35.0); MCHC 35.1 g/dL (31.0-37.0); MCV 98.6 fL (80.0-100.0); Mean Platelet Volume 8.3; Monocytes # (A) 0.4 k/uL (0-1.0); Monocytes % (A) 11 %; Neutrophils # (A) 1.9 k/uL (1.3-7.7); Neutrophils % (A) 59 %; RBC 3.32 m/uL (4.30-5.90); RDW 14.2 % (11.5-15.5); WBC 3.3 k/uL (3.8-10.6)
--- NOTE | 2023-10-16 21:20 | ED ---
SOB HPI - General Chief Complaint: Shortness of Breath Stated Complaint: SOB Source: EMS, RN notes reviewed, old records reviewed Mode of arrival: EMS Limitations: no limitations - History of Present Illness Initial Comments: This is a 78-year-old male to the emergency department for evaluation, patient's fever shortness of breath severe patient has severe COPD having worsening shortness of breath with cough and congestion and recently noticed fever. MD Complaint: shortness of breath -: days(s) Severity: moderate Severity scale (1-10): 4 Quality: dull Consistency: constant Improves With: nothing Worsens With: nothing Known History Of: COPD Context: recent URI Associated Symptoms: denies other symptoms - Related Data Home Medications Medication Instructions Recorded Confirmed metFORMIN HCL [Glucophage] 1,000 mg PO BID 06/07/14 10/16/23 Ferrous Sulfate [Iron (65 MG 325 mg PO DAILY 03/07/16 10/16/23 Elemental)] Magnesium Oxide [Mag-Ox] 250 mg PO DAILY 07/11/19 10/16/23 Nitroglycerin Sl Tabs [Nitrostat] 0.4 mg SL Q5M PRN 07/17/21 10/16/23 allopurinoL [Zyloprim] 100 mg PO DAILY 07/17/21 10/16/23 carvediloL [Coreg] 12.5 mg PO BID 11/27/21 10/16/23 Aspirin EC [Ecotrin Low Dose] 81 mg PO DAILY 02/10/22 10/16/23 lisinopriL [Zestril] 2.5 mg PO DAILY 02/10/22 10/16/23 Atorvastatin [Lipitor] 80 mg PO DAILY 03/07/22 10/16/23 Albuterol Inhaler [Ventolin Hfa 2 puff INHALATION RT-Q4H PRN 07/22/23 10/16/23 Inhaler] Insulin NPH Hum/Reg Insulin Hm 30 unit SQ BID 10/16/23 10/16/23 [Novolin 70-30 100 Unit/ml Vial] Allergies Allergy/AdvReac Type Severity Reaction Status Date / Time No Known Allergies Allergy Verified 10/16/23 22:19 Review of Systems ROS Statement: Those systems with pertinent positive or pertinent negative responses have been documented in the HPI. ROS Other: All systems not noted in ROS Statement are negative. Past Medical History Past Medical History: Blood Disorder, Coronary Artery Disease (CAD), Chest Pain / Angina, Heart Failure, COPD, Diabetes Mellitus, GERD/Reflux, Hyperlipidemia, Hypertension, Liver Disease, Myocardial Infarction ([place]), Pneumonia, Supra ventricular Tachycardia (SVT), Vascular Disorder Additional Past Medical History / Comment(s): Recent hospitalization for diverticulitis. Ischemic CMP, nonsustained ventriclar arrhythmia, systolic heart failure, [place] x 2 in 2001, 1994, thrombocytopenia, kidney stones, gout bi lateral feet/ toes, hx bilat tinnitis, stomach ulcers 2020 Last Myocardial Infarction Date:: 2001 History of Any Multi-Drug Resistant Organisms: None Reported Past Surgical History: Cardiac Ablation, Cholecystectomy, Heart Catheterization, Heart Catheterization With Stent, Joint Replacement, Orthopedic Surgery Additional Past Surgical History / Comment(s): PCIs with total 6 stents per patient, cardiac ablation-AVRNT, EPS, R caratid stent, R knee arthroscopy, bilateral total knee replacements x2-L side became infected-had I&D, bilateral shoulder rotator cuff surgeries with R side done 3 times, L ankle surgery, bilateral carpal tunnel releases, colonoscopy. EGD lft shoulder x1 Past Anesthesia/Blood Transfusion Reactions: No Reported Reaction Additional Past Anesthesia/Blood Transfusion Reaction / Comment(s): never had a blood tranfusion Date of Last Stent Placement:: 02/05/19 Past Psychological History: No Psychological Hx Reported Smoking Status: Former smoker Past Alcohol Use History: Rare Past Drug Use History: None Reported - Past Family History Father History Unknown: Yes Additional Family Medical History / Comment(s): Pt does not know his father's history. His parents were when he was 6 yrs old. Mother History Unknown: Yes Family Medical History: Cancer Additional Family Medical History / Comment(s): Pt states mother had some form of cancer which she from at the age of 77yrs. General Exam General appearance: alert, in no apparent distress, anxious Head exam: Present: atraumatic, normocephalic, normal inspection Eye exam: Present: normal appearance, PERRL, EOMI. Absent: scleral icterus, conjunctival injection, periorbital swelling ENT exam: Present: normal exam, mucous membranes moist Neck exam: Present: normal inspection. Absent: tenderness, meningismus, lymphadenopathy Respiratory exam: Present: normal lung sounds bilaterally, wheezes. Absent: respiratory distress, rales, rhonchi, stridor Cardiovascular Exam: Present: regular rate, normal rhythm, tachycardia, normal heart sounds. Absent: systolic murmur, diastolic murmur, rubs, gallop, clicks GI/Abdominal exam: Present: soft, normal bowel sounds. Absent: distended, tenderness, guarding, rebound, rigid Extremities exam: Present: normal inspection, full ROM, normal capillary refill. Absent: tenderness, pedal edema, joint swelling, calf tenderness Back exam: Present: normal inspection Neurological exam: Present: alert, oriented X3, CN II-XII intact Psychiatric exam: Present: normal affect, normal mood Skin exam: Present: warm, dry, intact, normal color. Absent: rash Course Vital Signs 10/16/23 10/16/23 10/16/23 20:43 20:50 21:00 Temperature 101.3 F H Pulse Rate 93 76 Respiratory 22 Rate Blood Pressure 143/66 124/51 O2 Sat by Pulse 98 98 Oximetry 10/16/23 10/16/23 10/16/23 21:59 22:00 22:09 Temperature Pulse Rate 70 71 71 Respiratory 20 Rate Blood Pressure 133/63 O2 Sat by Pulse 98 Oximetry 10/16/23 10/16/23 10/17/23 23:00 23:36 01:00 Temperature 97.7 F Pulse Rate 72 58 L Respiratory 18 18 Rate Blood Pressure 105/51 115/62 O2 Sat by Pulse 98 99 Oximetry 10/17/23 10/17/23 10/17/23 04:00 06:00 09:37 Temperature 98.9 F 97.4 F L Pulse Rate 60 58 L 63 Respiratory 18 18 18 Rate Blood Pressure 116/54 123/68 118/62 O2 Sat by Pulse 98 98 98 Oximetry 10/17/23 11:13 Temperature 97.5 F L Pulse Rate 59 L Respiratory 18 Rate Blood Pressure 128/59 O2 Sat by Pulse 98 Oximetry - Reevaluation(s) Reevaluation #1: 10/16/23 22:22 Medical record is reviewed Reevaluation #2: 10/16/23 22:23 Patient is having improvement of symptoms and control fever control breathing treatment Reevaluation #3: 10/16/23 22:23 Patient for results questions answered patient is refusing discharge home Reevaluation #4: 10/16/23 22:22 Was pt. sent in by a medical professional or institution (Dr., PA, DAMPPROOFER, urgent care, hospital, or halfway...) When possible be specific @ -no Did you speak to anyone other than the patient for history (EMS, parent, family, police, friend...)? What history was obtained from this source @ -no Did you review nursing and triage notes (agree or disagree)? Why? @ -agree Are old charts reviewed (outside hosp., previous admission, EMS record, old EKG, old radiological studies, urgent care reports/EKG's, halfway records)? Report findings @ -yes Differential Diagnosis (chest pain, altered mental status, abdominal pain women, abdominal pain men, vaginal bleeding, weakness, fever, dyspnea, syncope, headache, dizziness, GI bleed, back pain, seizure, CVA, palpatations, mental health, musculoskeletal)? @ -prior EKG interpreted by me (3pts min.). @ -yes X-rays interpreted by me (1pt min.). @ -yes CT interpreted by me (1pt min.). @ -no U/S interpreted by me (1pt. min.). @ -no What testing was considered but not performed or refused? (CT, X-rays, U/S, labs)? Why? @ -none What meds were considered but not given or refused? Why? @ -none Did you discuss the management of the patient with other professionals (professionals i.e. MARTIN Mcadams, DAMPPROOFER, lab, RT, psych nurse, social media coordinator, boat cleaner, teacher, chief administrative officer, case fitter)? Give summary @ -no Was smoking cessation discussed for >3mins.? @ -no Was critical care preformed (if so, how long)? @ -no Were there social determinants of health that impacted care today? How? (Homelessness, low income, unemployed, alcoholism, drug addiction, transportation, low edu. Level, literacy, decrease access to med. care, custodial, rehab)? @ -none Was there de-escalation of care discussed even if they declined (Discuss DNR or withdrawal of care, Hospice)? DNR status @ -no What co-morbidities impacted this encounter? (DM, HTN, Smoking, COPD, CAD, Cancer, CVA, ARF, Chemo, Hep., AIDS, mental health diagnosis, sleep apnea, morbid obesity)? @ -none Was patient admitted / discharged? Hospital course, mention meds given and route, prescriptions, significant lab abnormalities, going to OR and other pertinent info. @ - 78 male to the emergency department for evaluation severe shortness of breath positive for fever. Patient does have a long history of comorbid conditions including COPD coming in positive for coronavirus here in the ER patient be admitted for further supportive care Admitting Undiagnosed new problem with uncertain prognosis? @ -no Drug Therapy requiring intensive monitoring for toxicity (Heparin, Nitro, Insulin, Cardizem)? @ -no Were any procedures done? @ -no Diagnosis/symptom? @ -Coronavirus fever, or diabetes hyperglycemia and weakness Acute, or Chronic, or Acute on Chronic? @ -Acute Uncomplicated (without systemic symptoms) or Complicated (systemic symptoms)? @ -Complicated Side effects of treatment? @ -no Exacerbation, Progression, or Severe Exacerbation? @ -exacerbation Poses a threat to life or bodily function? How? (Chest pain, USA, PR, pneumonia, PE, COPD, DKA, ARF, appy, cholecystitis, CVA, Diverticulitis, Homicidal, Suicidal, threat to staff... and all critical care pts) @ -yes with significant respiratory distress Reevaluation #5: 10/16/23 22:22 Differential Fever: Pneumonia, viral URI, endocarditis, myocarditis, pericarditis, otitis, sinusitis, peritonsillar Abscess, retropharyngeal Abscess, epiglottitis, peritonitis, appendicitis, Violet cystitis, diverticulitis, hepatitis, colitis, UTI, PID, TOA, pyelonephritis, prostatitis, epididymitis, meningitis, encephalitis, pulmonary embolism, CVA, thyroid storm, pancreatitis, adrenal crisis, cavernous sinus thrombosis, this is not meant to be an all-inclusive list. Differential Dyspnea: Coronary syndrome, arrhythmia, tamponade, asthma, COPD, pulmonary embolism, pneumonia, pneumothorax, pulmonary effusion, anaphylaxis, diabetic ketoacidosis, flailed chest, pulmonary contusion, diaphragmatic rupture, anemia, neuromuscular, this is not meant to be an all-inclusive list. - Consultations Consultation #1: Spoke with vikash who agrees to admit the patient Medical Decision Making - Medical Decision Making 78 male to the emergency department for evaluation severe shortness of breath positive for fever. Patient does have a long history of comorbid conditions including COPD coming in positive for coronavirus here in the ER patient be admitted for further supportive care - Lab Data Result diagrams: 10/17/23 06:37 10/17/23 06:37 Lab Results 10/16/23 10/16/23 10/16/23 Range/Units 21:06 21:06 21:06 WBC 3.3 L (3.8-10.6) k/uL RBC 3.32 L (4.30-5.90) m/uL Hgb 11.5 L (13.0-17.5) gm/dL Hct 32.7 L (39.0-53.0) % MCV 98.6 (80.0-100.0) fL MCH 34.6 (25.0-35.0) pg MCHC 35.1 (31.0-37.0) g/dL RDW 14.2 (11.5-15.5) % Plt Count 55 L (150-450) k/uL MPV 8.3 Neutrophils % 59 % Lymphocytes % 23 % Monocytes % 11 % Eosinophils % 2 % Basophils % 0 % Neutrophils # 1.9 (1.3-7.7) k/uL Lymphocytes # 0.7 L (1.0-4.8) k/uL Monocytes # 0.4 (0-1.0) k/uL Eosinophils # 0.1 (0-0.7) k/uL Basophils # 0.0 (0-0.2) k/uL PT 11.7 (10.0-12.5) sec INR 1.1 (<1.2) APTT 23.8 (22.0-30.0) sec Sodium (137-145) mmol/L Potassium (3.5-5.1) mmol/L Chloride (98-107) mmol/L Carbon Dioxide (22-30) mmol/L Anion Gap mmol/L BUN (9-20) mg/dL Creatinine (0.66-1.25) mg/dL Est GFR (CKD-EPI)AfAm (>60 ml/min/1.73 sqM) Est GFR (CKD-EPI)NonAf (>60 ml/min/1.73 sqM) Glucose (74-99) mg/dL Plasma Lactic Acid Evgeny (0.7-2.0) mmol/L Calcium (8.4-10.2) mg/dL Magnesium (1.6-2.3) mg/dL Total Bilirubin (0.2-1.3) mg/dL AST (17-59) U/L ALT (4-49) U/L Alkaline Phosphatase (38-126) U/L Troponin I (0.000-0.034) ng/mL NT-Pro-B Natriuret Pep pg/mL Total Protein (6.3-8.2) g/dL Albumin (3.5-5.0) g/dL Influenza Type A (PCR) Not Detected (Not Detectd) Influenza Type B (PCR) Not Detected (Not Detectd) RSV (PCR) Not Detected (Not Detectd) SARS-CoV-2 (PCR) Detected A (Not Detectd) 10/16/23 10/16/23 10/16/23 Range/Units 21:06 21:06 21:06 WBC (3.8-10.6) k/uL RBC (4.30-5.90) m/uL Hgb (13.0-17.5) gm/dL Hct (39.0-53.0) % MCV (80.0-100.0) fL MCH (25.0-35.0) pg MCHC (31.0-37.0) g/dL RDW (11.5-15.5) % Plt Count (150-450) k/uL MPV Neutrophils % % Lymphocytes % % Monocytes % % Eosinophils % % Basophils % % Neutrophils # (1.3-7.7) k/uL Lymphocytes # (1.0-4.8) k/uL Monocytes # (0-1.0) k/uL Eosinophils # (0-0.7) k/uL Basophils # (0-0.2) k/uL PT (10.0-12.5) sec INR (<1.2) APTT (22.0-30.0) sec Sodium 136 L (137-145) mmol/L Potassium 4.7 (3.5-5.1) mmol/L Chloride 104 (98-107) mmol/L Carbon Dioxide 21 L (22-30) mmol/L Anion Gap 11 mmol/L BUN 20 (9-20) mg/dL Creatinine 1.09 (0.66-1.25) mg/dL Est GFR (CKD-EPI)AfAm 76 (>60 ml/min/1.73 sqM) Est GFR (CKD-EPI)NonAf 66 (>60 ml/min/1.73 sqM) Glucose 158 H (74-99) mg/dL Plasma Lactic Acid Evgeny 1.8 (0.7-2.0) mmol/L Calcium 9.3 (8.4-10.2) mg/dL Magnesium 1.8 (1.6-2.3) mg/dL Total Bilirubin 1.8 H (0.2-1.3) mg/dL AST 52 (17-59) U/L ALT 37 (4-49) U/L Alkaline Phosphatase 78 (38-126) U/L Troponin I <0.012 (0.000-0.034) ng/mL NT-Pro-B Natriuret Pep 387 pg/mL Total Protein 7.3 (6.3-8.2) g/dL Albumin 4.1 (3.5-5.0) g/dL Influenza Type A (PCR) (Not Detectd) Influenza Type B (PCR) (Not Detectd) RSV (PCR) (Not Detectd) SARS-CoV-2 (PCR) (Not Detectd) - EKG Data -: EKG Interpreted by Me (EKG is sinus 78 SC 207 QRS 129 QTC 390) - Radiology Data Radiology results: report reviewed (Chest x-rays negative for acute disease), image reviewed Disposition Clinical Impression: Diabetes, Chest pain, COPD exacerbation, Febrile illness, Fever, Coronavirus infection Disposition: ADMITTED IP TO THIS HOSP Condition: Stable Is patient prescribed a controlled substance at d/c from ED?: No Time of Disposition: 22:20
[2023-10-16 21:30] LABS: ALT 37 U/L (4-49); AST 52 U/L (17-59); African American GFR (CKD) 76 (>60 ml/min/1.73 sqM); Albumin 4.1 g/dL (3.5-5.0); Alkaline Phosphatase 78 U/L (38-126); Anion Gap 11 mmol/L; Blood Urea Nitrogen 20 mg/dL (9-20); Calcium 9.3 mg/dL (8.4-10.2); Carbon Dioxide 21 mmol/L (22-30); Chloride 104 mmol/L (98-107); Glucose 158 mg/dL (74-99); Magnesium 1.8 mg/dL (1.6-2.3); Non-African American GFR(CKD) 66 (>60 ml/min/1.73 sqM); Potassium 4.7 mmol/L (3.5-5.1); Sodium 136 mmol/L (137-145); Total Bilirubin 1.8 mg/dL (0.2-1.3); Total Protein 7.3 g/dL (6.3-8.2)
[2023-10-16 21:39] LABS: NT-Pro-B-Type Natriuretic Pept 387 pg/mL
[2023-10-16 21:43] LABS: INR 1.1 (<1.2); Partial Thromboplastin Time 23.8 sec (22.0-30.0); Prothrombin Time 11.7 sec (10.0-12.5)
[2023-10-16 22:10] LABS: Platelet Count 55 k/uL (150-450)
[2023-10-16] MEDS ORDERED: IPRATROPIUM-ALBUTEROL 3 ML NEB INHALATION PRN (22:16)
[2023-10-16] MEDS ORDERED: DEXAMETHASONE SOD PHOSPHATE 10 MG/ML 1 ML VIAL IVP STA (22:16)
[2023-10-16] MEDS ORDERED: NALOXONE 0.4 MG/ML 1 ML VIAL IV PRN (22:16)
[2023-10-16] MEDS ORDERED: ONDANSETRON 4 MG/2 ML VIAL IVP PRN (22:16)
[2023-10-16] MEDS ORDERED: MORPHINE SULFATE 4 MG/ML SYRINGE IV PRN (22:16)
[2023-10-16] MEDS ORDERED: ACETAMINOPHEN TAB 325 MG TAB PO PRN (22:16)
[2023-10-16] MEDS ORDERED: IBUPROFEN 400 MG TAB PO PRN (22:16)
[2023-10-16] MEDS ORDERED: SODIUM CHLORIDE 0.9% 1,000 ML IV SCH (22:30)
[2023-10-16] MEDS ORDERED: ALBUTEROL HFA INHALER INHALATION PRN (23:07)
--- NOTE | 2023-10-16 23:11 | XR ---
EXAM: XR chest 1V portable CLINICAL INDICATION:Male, 78 years old with history of sob; [facility] COMPARISON: 08/17/2023 TECHNIQUE: Chest single view. FINDINGS: Exam is limited by patient body habitus. Lines/tubes/devices: EKG leads overlie the chest. No indwelling lines are seen. Cardiomediastinum: Cardiac silhouette appears stable, upper limits of normal in size. Unremarkable mediastinal silhouette. Vasculature: Mildly prominent central vasculature, similar to previous. Lungs/pleura: No consolidation, sizeable effusion, or visible pneumothorax. Hazy opacities over the lung bases attr ibuted to overlying soft tissues. Suspect mild COPD changes. Bones/soft tissues: Bony thorax appears grossly intact as seen. Reverse glenohumeral arthroplasty on the right. Surgical anchor left humeral head. Regional soft tissues appear unremarkable. IMPRESSION: No acute findings, or significant interval change.
[2023-10-16 23:33] VITALS: RESP 18
[2023-10-17] MEDS ORDERED: DEXAMETHASONE SOD PHOSPHATE 4 MG/ML 1 ML VIAL IVP SCH
--- NOTE | 2023-10-17 01:19 | P.HPIM ---
History of Present Illness H&P Date: 10/16/23 Patient is a 78-year-old male with a PMH of COPD, systolic CHF with EF 40-45%, CAD status post stents, type II DM, hypertension, hyperlipidemia, chronic thrombocytopenia who presents to the emergency room with complaints of fever, cough, and myalgias. Patient reports his symptoms started yesterday afternoon and he had a fever of 102F documented at home. Reports the cough is nonproductive without chest discomfort, nausea, vomiting, diaphoresis, or dizziness. A chest x-ray in the emergency room was unremarkable. EKG revealed sinus rhythm with a right bundle branch block at 78 bpm as reviewed by me. Laboratory evaluation revealed COVID-19 PCR positive, leukopenia of 3.3 with hemoglobin 11 .5 and platelets 55 (at baseline), troponin less than 0.012, sodium 136, glucose 158, and total bilirubin 1.8. The patient had a fever of 101.3F upon arrival to the emergency room. ED documentation reviewed and case discussed with ED provider. Review of systems: Pertinent positives and negatives as discussed in HPI, a complete review of systems was performed and all other systems are negative. Physical examination: Vital signs reviewed General: non toxic, no distress, appears at stated age, morbidly obese Derm: no unusual rashes/lesions, warm Head: atraumatic, normocephalic, symmetric Eyes: EOMI, no lid lag, anicteric sclera, pupils equal round reactive to light ENT: Nose and ears atraumatic Neck: No cervical lymphadenopathy, trachea midline, supple Mouth: no lip lesion, mucus membranes moist Cardiovascular: S1S2 reg, no murmur, positive dorsalis pedis pulse bilateral, no edema Lungs: CTA bilateral, no rhonchi, no rales, no accessory muscle use Abdominal: soft, nontender to palpation, no guarding Ext: muscle strength 5 out of 5 in all 4 extremities grossly, no gross muscle atrophy, no contractures, Neuro: CN II-XI grossly intact, no gross focal neuro deficits Psych: Alert, oriented, appropriate affect Assessment: COVID-19 infection Chronic conditions: COPD, CHF, CAD, type II DM, hypertension, hyperlipidemia Imaging: A chest x-ray in the emergency room was unremarkable. EKG revealed sinus rhythm with a right bundle branch block at 78 bpm as reviewed by me. Data Review: Laboratory evaluation revealed COVID-19 PCR positive, leukopenia of 3.3 with hemoglobin 11.5 and platelets 55 (at baseline), troponin less than 0.012, sodium 136, glucose 158, and total bilirubin 1.8. The patient had a fever of 101.3F upon arrival to the emergency room. Plan: Patient not requiring supplemental oxygen at this time Insulin sliding scale blood glucose monitoring Continue with home medications DVT prophylaxis: Lovenox Subq The patient is admitted with an anticipated less than 2 midnight stay for evaluation of COVID 19 infection CODE STATUS: Full Code Discussed with: Patient Anticipated discharge place: Home Past Medical History Past Medical History: Blood Disorder, Coronary Artery Disease (CAD), Chest Pain / Angina, Heart Failure, COPD, Diabetes Mellitus, GERD/Reflux, Hyperlipidemia, Hypertension, Liver Disease, Myocardial Infarction ([place]), Pneumonia, Supraventricular Tachycardia (SVT), Vascular Disorder Additional Past Medical History / Comment(s): Recent hospitalization for diverticulitis. Ischemic CMP, nonsustained ventriclar arrhythmia, systolic heart failure, [place] x 2 in 2001, 1994, thrombocytopenia, kidney stones, gout bilateral feet/ toes, hx bilat tinnitis, stomach ulcers 2020 Last Myocardial Infarction Date:: 2001 History of Any Multi-Drug Resistant Organisms: None Reported Past Surgical History: Cardiac Ablation, Cholecystectomy, Heart Catheterization, Heart Catheterization With Stent, Joint Replacement, Orthopedic Surgery Additional Past Surgical History / Comment(s): PCIs with total 6 stents per patient, cardiac ablation-AVRNT, EPS, R caratid stent, R knee arthroscopy, bilateral total knee replacements x2-L side became infected-had I&D, bilateral shoulder rotator cuff surgeries with R side done 3 times, L ankle surgery, bilateral carpal tunnel releases, colonoscopy. EGD lft shoulder x1 Past Anesthesia/Blood Transfusion Reactions: No Reported Reaction Additional Past Anesthesia/Blood Transfusion Reaction / Comment(s): never had a blood tranfusion Date of Last Stent Placement:: 02/05/19 Past Psychological History: No Psychological Hx Reported Smoking Status: Former smoker Past Alcohol Use History: Rare Past Drug Use History: None Reported - Past Family History Father History Unknown: Yes Additional Family Medical History / Comment(s): Pt does not know his father's history. His parents were when he was 6 yrs old. Mother History Unknown: Yes Family Medical History: Cancer Additional Family Medical History / Comment(s): Pt states mother had some form of cancer which she from at the age of 77yrs. Medications and Allergies Home Medications Medication Instructions Recorded Confirmed Type metFORMIN HCL [Glucophage] 1,000 mg PO BID 06/07/14 10/16/23 History Ferrous Sulfate [Iron (65 MG 325 mg PO DAILY 03/07/16 10/16/23 History Elemental)] Magnesium Oxide [Mag-Ox] 250 mg PO DAILY 07/11/19 10/16/23 History Nitroglycerin Sl Tabs [Nitrostat] 0.4 mg SL Q5M PRN 07/17/21 10/16/23 History allopurinoL [Zyloprim] 100 mg PO DAILY 07/17/21 10/16/23 History carvediloL [Coreg] 12.5 mg PO BID 11/27/21 10/16/23 History Aspirin EC [Ecotrin Low Dose] 81 mg PO DAILY 02/10/22 10/16/23 History lisinopriL [Zestril] 2.5 mg PO DAILY 02/10/22 10/16/23 History Atorvastatin [Lipitor] 80 mg PO DAILY 03/07/22 10/16/23 History Albuterol Inhaler [Ventolin Hfa 2 puff INHALATION RT-Q4H PRN 07/22/23 10/16/23 History Inhaler] Spironolactone 12.5 mg PO DAILY 08/12/23 10/16/23 History Insulin NPH Hum/Reg Insulin Hm 30 unit SQ BID 10/16/23 10/16/23 History [Novolin 70-30 100 Unit/ml Vial] Allergies Allergy/AdvReac Type Severity Reaction Status Date / Time No Known Allergies Allergy Verified 10/16/23 22:19 Physical Exam Vitals: Vital Signs Temp Pulse Resp BP Pulse Ox 10/16/23 23:36 97.7 F 10/16/23 23:00 72 18 105/51 98 10/16/23 22:09 71 10/16/23 22:00 71 20 133/63 98 10/16/23 21:59 70 10/16/23 21:00 76 22 124/51 98 10/16/23 20:50 22 10/16/23 20:43 101.3 F H 93 22 143/66 98 Intake and Output 10/16/23 10/16/23 10/17/23 14:59 22:59 06:59 Other: Weight 110.677 kg Results CBC & Chem 7: 10/16/23 21:06 10/16/23 21:06 Labs: Abnormal Lab Results - Last 24 Hours (Table) 10/16/23 10/16/23 10/16/23 Range/Units 21:06 21:06 21:06 WBC 3.3 L (3.8-10.6) k/uL RBC 3.32 L (4.30-5.90) m/uL Hgb 11.5 L (13.0-17.5) gm/dL Hct 32.7 L (39.0-53.0) % Plt Count 55 L (150-450) k/uL Lymphocytes # 0.7 L (1.0-4.8) k/uL Sodium 136 L (137-145) mmol/L Carbon Dioxide 21 L (22-30) mmol/L Glucose 158 H (74-99) mg/dL Total Bilirubin 1.8 H (0.2-1.3) mg/dL SARS-CoV-2 (PCR) Detected A (Not Detectd)
[2023-10-17] MEDS ORDERED: carvediloL 12.5 MG TAB PO SCH (07:30)
[2023-10-17 07:31] LABS: Basophils % (A) 1 %; Eosinophils % (A) 1 %; HCT 38.6 % (39.0-53.0); HGB 12.4 gm/dL (13.0-17.5); Hypochromasia Slight; Lymphocytes # (A) 0.4 k/uL (1.0-4.8); Lymphocytes % (A) 21 %; MCHC 32.1 g/dL (31.0-37.0); MCV 102.8 fL (80.0-100.0); Macrocytosis Slight; Monocytes # (A) 0.1 k/uL (0-1.0); Monocytes % (A) 4 %; Neutrophils # (A) 1.3 k/uL (1.3-7.7); Neutrophils % (A) 71 %; RBC 3.75 m/uL (4.30-5.90); RDW 13.8 % (11.5-15.5); WBC 1.9 k/uL (3.8-10.6)
[2023-10-17 07:41] LABS: Platelet Count 55 k/uL (150-450)
[2023-10-17 07:44] LABS: ALT 40 U/L (4-49); AST 53 U/L (17-59); African American GFR (CKD) 82 (>60 ml/min/1.73 sqM); Albumin 4.3 g/dL (3.5-5.0); Alkaline Phosphatase 91 U/L (38-126); Anion Gap 13 mmol/L; Blood Urea Nitrogen 23 mg/dL (9-20); Calcium 9.4 mg/dL (8.4-10.2); Carbon Dioxide 19 mmol/L (22-30); Chloride 106 mmol/L (98-107); Glucose 264 mg/dL (74-99); Magnesium 2.1 mg/dL (1.6-2.3); Non-African American GFR(CKD) 71 (>60 ml/min/1.73 sqM); Phosphorus 3.8 mg/dL (2.5-4.5); Potassium 5.2 mmol/L (3.5-5.1); Sodium 138 mmol/L (137-145); Total Bilirubin 1.7 mg/dL (0.2-1.3); Total Protein 7.8 g/dL (6.3-8.2)
[2023-10-17] MEDS ORDERED: TIOTROPIUM 2.5 MCG INHALER INHALATION SCH (08:00)
[2023-10-17] MEDS ORDERED: allopurinoL 100 MG TAB PO SCH (09:00)
[2023-10-17] MEDS ORDERED: ATORVASTATIN 80 MG TAB PO SCH (09:00)
[2023-10-17] MEDS ORDERED: SPIRONOLACTONE 25 MG TAB PO SCH (09:00)
[2023-10-17] MEDS ORDERED: MAGNESIUM OXIDE 400 MG TAB PO SCH (09:00)
[2023-10-17] MEDS ORDERED: ASPIRIN 81 MG PO SCH (09:00)
[2023-10-17] MEDS: ENOXAPARIN 40 MG/0.4 ML SYRINGE SQ SCH ×2 (09:43→09:45)
--- NOTE | 2023-10-17 10:47 | P.DS ---
Providers Date of admission: 10/16/23 22:18 Expected date of discharge: 10/17/23 Attending physician: Hugo Looney MD Primary care physician: Carrie Bains [facility] Course: Discharge Diagnosis: Acute COVID-19 infection Leukopenia Chronic thrombocytopenia Mild hyperkalemia Hypertension Systolic CHF, not in exacerbation Hospital Course: 78-year-old male with a PMH of COPD, systolic CHF with EF 40-45%, CAD status post stents, type II DM, hypertension, hyperlipidemia, chronic thrombocytopenia who presents to the emergency room with complaints of fever, cough, and myalgias. A chest x-ray in the emergency room was unremarkable. EKG revealed sinus rhythm with a right bundle branch block at 78 bpm. Laboratory evaluation revealed COVID-19 PCR positive, leukopenia of 3.3 with hemoglobin 11.5 and platelets 55 (at baseline), troponin less than 0.012, sodium 136, glucose 158, and total bilirubin 1.8. The patient had a fever of 101.3F upon arrival to the emergency room. Patient currently not requiring any oxygen. He'll be discharged home with instructions to follow-up with his PCP for mild hyperkalemia of 5.2. Aldactone discontinued at the time of discharge. Blood pressure within normal limits. If BMP looks good in 3 days, patient can restart his Aldactone. For fevers and myalgias, he can continue using Tylenol [id number]. Patient seen and examined at bedside. Vital signs reviewed and stable. General: nontoxic, no distress, appears at stated age Derm: warm, dry Head: atraumatic, normocephalic, symmetric Eyes: EOMI, no lid lag, anicteric sclera Mouth: no lip lesion, mucus membranes moist Cardiovascular: S1S2 reg, no murmur Lungs: CTA bilateral, no rhonchi, no rales , no accessory muscle use Abdominal: soft, nontender to palpation, no guarding, no appreciable organomegaly Ext: no gross muscle atrophy, no edema, no contractures Neuro: CN II-XI grossly intact, no focal neuro deficits Psych: Alert, oriented, appropriate affect A total of 35 minutes of time were spent preparing this complex discharge summary. Patient was discharged on 10/17/23 at 10:39. Patient Condition at Discharge: Stable Plan - Discharge Summary New Discharge Prescriptions: Continue metFORMIN HCL [Glucophage] 1,000 mg PO BID Ferrous Sulfate [Iron (65 MG Elemental)] 325 mg PO DAILY Magnesium Oxide [Mag-Ox] 250 mg PO DAILY allopurinoL [Zyloprim] 100 mg PO DAILY carvediloL [Coreg] 12.5 mg PO BID lisinopriL [Zestril] 2.5 mg PO DAILY Insulin NPH Hum/Reg Insulin Hm [Novolin 70-30 100 Unit/ml Vial] 30 unit SQ BID Nitroglycerin Sl Tabs [Nitrostat] 0.4 mg SL Q5M PRN PRN Reason: Chest Pain Aspirin EC [Ecotrin Low Dose] 81 mg PO DAILY Atorvastatin [Lipitor] 80 mg PO DAILY Albuterol Inhaler [Ventolin Hfa Inhaler] 2 puff INHALATION RT-Q4H PRN PRN Reason: Shortness Of Breath Discontinued Spironolactone 12.5 mg PO DAILY Discharge Medication List metFORMIN HCL [Glucophage] 1,000 mg PO BID 06/07/14 [History] Ferrous Sulfate [Iron (65 MG Elemental)] 325 mg PO DAILY 03/07/16 [History] Magnesium Oxide [Mag-Ox] 250 mg PO DAILY 07/11/19 [History] Nitroglycerin Sl Tabs [Nitrostat] 0.4 mg SL Q5M PRN 07/17/21 [History] allopurinoL [Zyloprim] 100 mg PO DAILY 07/17/21 [History] carvediloL [Coreg] 12.5 mg PO BID 11/27/21 [History] Aspirin EC [Ecotrin Low Dose] 81 mg PO DAILY 02/10/22 [History] lisinopriL [Zestril] 2.5 mg PO DAILY 02/10/22 [History] Atorvastatin [Lipitor] 80 mg PO DAILY 03/07/22 [History] Albuterol Inhaler [Ventolin Hfa Inhaler] 2 puff INHALATION RT-Q4H PRN 07/22/23 [History] Insulin NPH Hum/Reg Insulin Hm [Novolin 70-30 100 Unit/ml Vial] 30 unit SQ BID 10/16/23 [History] Follow up Appointment(s)/Referral(s): Carrie Bains MD [Primary Care Provider] - 1-2 days Patient Instructions/Handouts: COVID-19 (Coronavirus Disease 2019) (DC) Activity/Diet/Wound Care/Special Instructions: Please see her PCP. He will need repeat blood work in 3 days. Hip primary care doctor can decide to restart Aldactone if your blood work looks better. You can take [id number] Tylenol 500 mg every 4-6 hours as needed for fevers or bodyaches. Discharge Disposition: HOME SELF-CARE
[2023-10-17 11:28] VITALS: BP 128/59; PULSE 59; TEMP 97.5
== END 2023-10-17 11:17 | disposition home or self-care (01) | DRG 178 ==
LOC: EC 20:42 → 4SSUR 22:18
PROVIDERS: ADMIT Internal Medicine; ATTEND Internal Medicine
DX: U07.1 COVID-19 (principal); I47.10 Supraventricular tachycardia, unspecified; I50.22 Chronic systolic (congestive) heart failure; J44.1 Chronic obstructive pulmonary disease with (acute) exacerbation; D69.6 Thrombocytopenia, unspecified; D72.819 Decreased white blood cell count, unspecified; E11.9 Type 2 diabetes mellitus without complications; E78.5 Hyperlipidemia, unspecified; K21.9 Gastro-esophageal reflux disease without esophagitis; K76.9 Liver disease, unspecified; E87.5 Hyperkalemia; M10.9 Gout, unspecified; I11.0 Hypertensive heart disease with heart failure; I25.10 Atherosclerotic heart disease of native coronary artery without angina pectoris; I25.2 Old myocardial infarction; I25.5 Ischemic cardiomyopathy; I45.10 Unspecified right bundle-branch block; Z79.4 Long term (current) use of insulin; Z79.82 Long term (current) use of aspirin; Z79.84 Long term (current) use of oral hypoglycemic drugs; Z79.899 Other long term (current) drug therapy; Z87.11 Personal history of peptic ulcer disease; Z87.442 Personal history of urinary calculi; Z87.891 Personal history of nicotine dependence; Z95.5 Presence of coronary angioplasty implant and graft; Z96.653 Presence of artificial knee joint, bilateral; Z87.01 Personal history of pneumonia (recurrent)
CPT/HCPCS: 36415; 71045; 80053; 83605; 83735; 83880; 84100; 84484; 85025; 85610; 85730; 87636; 93005; 94640; 96361; 96365; 96375; 99285

== ENCOUNTER → 2023-11-20 | Outpatient (CLI) | payer MEDICARE ==
[2023-11-20 18:53] LABS: BUN/Creat Ratio 14.22 Ratio (12.00-20.00); Blood Urea Nitrogen 12.8 mg/dL (9.0-27.0); Glucose 144 mg/dL (70-110)
[2023-11-20 18:54] LABS: Calcium 9.9 mg/dL (8.7-10.3); Chloride 106 mmol/L (96-109); Potassium 4.9 mmol/L (3.5-5.5); Sodium 142 mmol/L (135-145)
[2023-11-20 19:03] LABS: Basophils # (A) 0.01 X 10*3/uL (0.00-0.10); Basophils % (A) 0.4 %; Eosinophils # (A) 0.04 X 10*3/uL (0.04-0.35); Eosinophils % (A) 1.5 %; HCT 36.8 % (39.6-50.0); HGB 12.1 g/dL (13.0-17.0); Immature Platelet Fraction 5.4 % (1.1-6.1); Lymphocytes # (A) 0.78 X 10*3/uL (0.90-5.00); Lymphocytes % (A) 29.8 %; MCH 32.5 pg (27.0-32.0); MCHC 32.9 g/dL (32.0-37.0); MCV 98.9 FL (80.0-97.0); Mean Platelet Volume 10.9 FL (9.5-12.2); Monocytes # (A) 0.26 X 10*3/uL (0.20-1.00); Monocytes % (A) 9.9 %; NRBC Per 100 WBC 0 X 10*3/uL (0.00-0.01); Neutrophils # (A) 1.51 X 10*3/uL (1.80-7.70); Neutrophils % (A) 57.6 %; Platelet Count 63 X 10*3/uL (140-440); RBC 3.72 X 10*6/uL (4.40-5.60); RDW 13.6 % (11.5-14.5); WBC 2.62 X 10*3/uL (4.50-10.00)
== END | disposition home or self-care (01) ==
LOC: LABPAT 12:20
PROVIDERS: ATTEND Surgery
DX: Z01.812 Encounter for preprocedural laboratory examination (principal)
CPT/HCPCS: 36415; 80048; 85025; 86850; 86900; 86901

== ENCOUNTER 2023-11-26 05:35 | Inpatient (IN) | payer MEDICARE ==
[~2023-11-26 05:35] MED LIST changes: -DEXAMETHASONE SOD PHOSPHATE 4 MG/ML 1 ML VIAL IV ONE; +HEPARIN SODIUM,PORCINE 5,000 UNIT/ML 1 ML VIAL SQ PRN; -HEPARIN SODIUM,PORCINE/PF 5,000 UNIT/0.5 ML SYRINGE SQ PRN; -HYDROmorphone 0.5 MG/0.5 ML SYRINGE IVP PRN; +LIDOCAINE 1% (10MG/ML) FOR IV START INTRADERMA PRN; -ONDANSETRON 4 MG/2 ML VIAL IVP ONE; +metroNIDAZOLE-NS PMX 500 MG in SALINE 1 100ML.BAG IVPB PRN
[2023-11-26 06:48] LABS: Glucose,Whole Blood 200 mg/dL (70-110)
[2023-11-26] MEDS: LACTATED RINGERS 1,000 ML IV SCH ×2 (07:00→07:32)
[2023-11-26] MEDS ORDERED: HYDROmorphone 0.5 MG/0.5 ML SYRINGE IVP PRN (07:00)
[2023-11-26] MEDS ORDERED: MIDAZOLAM 2 MG/2 ML VIAL IVP ONE (07:06)
[2023-11-26] MEDS: DEXAMETHASONE SOD PHOSPHATE 4 MG/ML 1 ML VIAL IV ONE ×2 (07:08→13:01)
[2023-11-26] MEDS: ONDANSETRON 4 MG/2 ML VIAL IVP ONE ×2 (07:08→13:01)
--- NOTE | 2023-11-26 07:23 | P.ANPRN ---
Procedure Note - Anesthesia - Nerve Block Performed Bilateral Erector Spinae Single Time Out Performed: Yes Date of Procedure: 11/26/23 Procedure Start Time: 07:05 Procedure Stop Time: 07:15 Location of Patient: PreOp Indication: Acute Post-Operative Pain, Analgesia, Requested by Surgeon Sedation Type: Sedate with meaningful contact maintained Preparation: Sterile Prep Position: Sitting Catheter: None Needle Types: Pajunk Needle Gauge: 21 Ultrasound used to visualize needle placement: Yes Ultrasound used to observe medication spread: Yes Injectate: 0.5% Ropivacaine (see comment for volume) (Ropivacaine 10ml+[id number]---Qr each side) Blood Aspirated: No Pain Paresthesia on Injection Noted: No Resistance on Injection: Normal Image Stored and Saved: Yes Events: Uneventful and Well Tolerated
[2023-11-26] MEDS ORDERED: ROCURONIUM 10 MG/ML (5 ML VIAL) IV ONE (07:27)
[2023-11-26] MEDS ORDERED: LIDOCAINE 1% INJ 10MG/ML (20 ML MDV) ONE (07:27)
[2023-11-26] MEDS ORDERED: GLYCOPYRROLATE 0.2 MG/ML 2 ML VIAL ONE (07:27)
[2023-11-26] MEDS ORDERED: ROPIVACAINE 5 MG/ML 30 ML VIAL ONE (07:27)
[2023-11-26] MEDS ORDERED: PHENYLEPHRINE 10 MG/ML VIAL ONE (07:27)
[2023-11-26] MEDS ORDERED: WATER FOR INJECTION, STERILE 10 ML VIAL IV ONE (07:27)
[2023-11-26] MEDS ORDERED: NEOSTIGMINE 1 MG/ML 10 ML VIAL ONE (07:27)
[2023-11-26] MEDS ORDERED: SODIUM CHLORIDE 0.9% (PF) 10 ML VIAL ONE (07:27)
[2023-11-26] MEDS ORDERED: SUCCINYLCHOLINE CHLORIDE 200 MG/10 ML VIAL IV ONE (07:27)
[2023-11-26] MEDS ORDERED: ACETAMINOPHEN IV (For NPO) 1,000 MG/100 ML VIAL ONE (07:27)
[2023-11-26] MEDS ORDERED: KETAMINE HCL IN 0.9 % NACL 50 MG/5 ML SYRINGE ONE (07:27)
[2023-11-26] MEDS ORDERED: fentaNYL (PF) 50 MCG/ML 2 ML AMP ONE (07:27)
[2023-11-26] MEDS ORDERED: PROPOFOL 10 MG/ML 20 ML VIAL IV ONE (07:27)
[2023-11-26] MEDS ORDERED: KETOROLAC 15 MG/ML 1 ML VIAL ONE (07:27)
[2023-11-26] MEDS ORDERED: ePHEDrine 50 MG/ML 1 ML VIAL ONE (07:27)
[2023-11-26] MEDS ORDERED: SUGAMMADEX SODIUM 200 MG/2 ML SDV IV ONE (07:27)
[2023-11-26] MEDS ORDERED: LACTATED RINGERS 1,000 ML IV ONE (09:22)
[2023-11-26] MEDS ORDERED: ONDANSETRON 4 MG/2 ML VIAL IVP PRN (10:43)
[2023-11-26] MEDS ORDERED: METOCLOPRAMIDE 5 MG/ML 2 ML VIAL IVP PRN (10:43)
[2023-11-26] MEDS ORDERED: BENZOCAINE/MENTHOL LOZENG 1 EACH LOZENGE MUCOUS MEM PRN (10:43)
[2023-11-26] MEDS ORDERED: KETOROLAC 15 MG/ML 1 ML VIAL IVP PRN (10:43)
--- NOTE | 2023-11-26 10:55 | P.OP ---
Date of Procedure: 11/26/23 Preoperative Diagnosis: Diverticulitis Postoperative Diagnosis: Diverticulitis Procedure(s) Performed: Low anterior section Takedown of splenic flexure Partial omentectomy Repair of incisional hernia Anesthesia: EDNA Surgeon: Julien Quiroz Estimated Blood Loss (ml): 250 Pathology: other (Omentum, colon) Condition: stable Disposition: PACU Description of Procedure: She was placed on the operative table in the supine general endotracheal tube anesthesia. The patient is morbidly obese. The patient a very large abdomen. His abdomen was prepped and draped usual sterile fashion. The abdomen was entered through a low midline incision. There was a incisional hernia located near the umbilicus. This measured 3 cm in length. Electrocautery was used to divide the abdominal wall. The incision was then extended cephalad. The Bookwalter retractors placed a wound. Abdomen explored. The patient's sigmoid colon appeared to be thickened. The adhesions to the left colon were lysed with sharp dissection. The white line of Toldt was divided. The left colon was mobilized. The patient a very short mesentery. At this point the splenic flexure was taken down with left cautery and the LigaSure device. The transverse colon was mobilized. The sigmoid colon mobilized off the lateral pelvic wall. And then the 29 mm EEA stapler was placed into the transverse colon. This was placed through an enterotomy. The colon was then transected with a GI stapler. And the spike for the a.m. was driven through the staple line. The enterotomy is closed 3-0 GI silk suture. And then the mesentery the bowel was divided with the Enseal device. The rectum was then transected with the contour stapler. This point the assistant professor of archaeology placed the EEA sizers patient's rectum. The EEA staplers placed the patient's rectum and then the stapler was opened and the spike was driven through the rectal staple line. The abdomen was then cut to the stapler. The stapler is then closed and fired. The stapler expected inspected. There were 2 intact tissue rings seen. The anastomosis was then visualized under air insufflation. There is no incision of leakage once the rectum was insufflated with air via a rigid sigmoid scope. This point the abdomen was area. There is no bleeding seen. The omentum appeared to be ischemic. This was transected with the Enseal device. The fascia was then closed in looped #1 suture. Skin was closed table. The hernia was repaired during fascial closure. The prevene a wound system was placed on the incision. Patient was sent to recovery room in stable condition.
[2023-11-26 11:14] LABS: Glucose,Whole Blood 232 mg/dL (70-110)
[2023-11-26] MEDS ORDERED: INSULIN ASPART (NovoLOG) 100 UNIT/ML VIAL SQ ONE (11:43)
[2023-11-26] MEDS: HYDROmorphone 1 MG/ML 1 ML SYRINGE IVP PRN ×2 (12:27→20:54)
[2023-11-26 12:35] LABS: African American GFR (CKD) >90 (>60 ml/min/1.73 sqM); Anion Gap 12 mmol/L; Blood Urea Nitrogen 11 mg/dL (9-20); Calcium 8.2 mg/dL (8.4-10.2); Carbon Dioxide 17 mmol/L (22-30); Chloride 108 mmol/L (98-107); Glucose 226 mg/dL (74-99); Non-African American GFR(CKD) >90 (>60 ml/min/1.73 sqM); Potassium 4.7 mmol/L (3.5-5.1); Sodium 137 mmol/L (137-145)
[2023-11-26 12:47] LABS: Basophils % (A) 0 %; Eosinophils % (A) 1 %; HCT 35.5 % (39.0-53.0); HGB 11.8 gm/dL (13.0-17.5); Lymphocytes # (A) 0.6 k/uL (1.0-4.8); Lymphocytes % (A) 8 %; MCH 33.4 pg (25.0-35.0); MCHC 33.4 g/dL (31.0-37.0); MCV 100.1 fL (80.0-100.0); Macrocytosis Slight; Mean Platelet Volume 8.8; Monocytes # (A) 0.5 k/uL (0-1.0); Monocytes % (A) 6 %; Neutrophils # (A) 6.9 k/uL (1.3-7.7); Neutrophils % (A) 85 %; Platelet Count 79 k/uL (150-450); RBC 3.54 m/uL (4.30-5.90); RDW 14.1 % (11.5-15.5); WBC 8.1 k/uL (3.8-10.6)
[2023-11-26] MEDS: D5-0.45% NACL WITH KCL 20MEQ/L 1,000 ML IV SCH ×3 (14:04→21:51)
[2023-11-26] MEDS ORDERED: SODIUM CHLORIDE 0.9% 500 ML 500 ML IV ONE (14:12)
[2023-11-26] MEDS: ACETAMINOPHEN IV (For NPO) 1,000 MG in EMPTY BAG 1 BAG IVPB SCH ×2 (14:29→20:52)
[2023-11-26] MEDS ORDERED: ALBUTEROL NEBULIZED 2.5 MG/3 ML INHALATION PRN (15:02)
[2023-11-26] MEDS ORDERED: DEXTROSE 50% SYRINGE 50 ML IVP PRN ×2 (15:04)
--- NOTE | 2023-11-26 16:13 | P.CONS ---
History of Present Illness - Reason for Consult Consult date: 11/26/23 - History of Present Illness Patient is a 78-year-old male with history of type 2 diabetes, hypertension, dyslipidemia, CAD, heart failure, COPD presenting for elective partial colectomy and omentectomy. [facility] has been consulted for medical management. Vital signs have been within normal limits. Hemoglobin 11.8, WBC 8.1, platelets 79 around baseline, bicarb 17, creatinine 0.73, blood sugars range between 200- 232. Patient currently denies any chest pain, shortness of breath, nausea, vomi ting, urinary complaints. Quiles catheter in place. Pertinent positives and negatives as discussed in HPI, a complete review of systems was performed and all other systems are negative. Patient seen and examined at bedside. Vital signs reviewed General: nontoxic, no distress, appears at stated age Derm: warm, dry, dressing clean, dry, intact Head: atraumatic, normocephalic, symmetric Eyes: EOMI, no lid lag, anicteric sclera, pupils equal round reactive to light ENT: Nose and ears atraumatic Neck: No thyromegaly, supple Mouth: no lip lesion, mucus membranes moist Cardiovascular: S1S2 reg, no murmur, no edema Lungs: clear to auscultation bilateral, no rhonchi, no rales, no wheeze, no acc essory muscle use Abdominal: soft, tender to palpation. Ext: no gross muscle atrophy, muscle strength muscle strength 5 out of 5 in all 4 extremities, no contractures Neuro: CN II-XII grossly intact Psych: Alert, oriented, appropriate affect Assessment/Plan: Status post abdominal surgery -Operative note reviewed -For pain control, patient on IV Tylenol, IV Dilaudid as needed, moderate for respiratory depression -On Lovenox 40 mg subcu daily for DVT prophylaxis -Once oral intake improves, discontinue IV fluids Hypertension history Dyslipidemia History of CAD Systolic CHF, not in exacerbation COPD Type 2 diabetes Chronic thrombocytopenia Gout -Antihypertensives held as patient's blood pressure has been soft -Continue atorvastatin 80 mg daily, continue allopurinol 100 mg daily -Albuterol as needed -Started on sliding scale insulin, resume home insulin once oral intake improves, monitor for hypoglycemia -Repeat CBC and BMP tomorrow Thank you for allowing us to participate in the care of this pleasant patient. Do not hesitate to contact us with questions. Someone can be reached from the [facility] hospitalist group all hours of the day at [phone] or via [employer]. Past Medical History Past Medical History: Blood Disorder, Coronary Artery Disease (CAD), Chest Pain / Angina, Heart Failure, COPD, Diabetes Mellitus, GERD/Reflux, Hyperlipidemia, Hypertension, Liver Disease, Myocardial Infarction ([place]), Pneumonia, Supraventricular Tachycardia (SVT), Vascular Disorder Additional Past Medical History / Comment(s): Recent hospitalization for diverticulitis. Ischemic CMP, nonsustained ventriclar arrhythmia, systolic heart failure, [place] x 2 in 2001, 1994, thrombocytopenia, kidney stones, gout bilateral feet/ toes, hx bilat tinnitis, stomach ulcers 2020 Last Myocardial Infarction Date:: 2001 History of Any Multi-Drug Resistant Organisms: None Reported Past Surgical History: Cardiac Ablation, Cholecystectomy, Heart Catheterization, Heart Catheterization With Stent, Joint Replacement, Orthopedic Surgery Additional Past Surgical History / Comment(s): PCIs with total 6 stents per patient, cardiac ablation-AVRNT, EPS, R caratid stent, R knee arthroscopy, bilateral total knee replacements x2-L side became infected-had I&D, bilateral shoulder rotator cuff surgeries with R side done 3 times, L ankle surgery, bilateral carpal tunnel releases, colonoscopy. EGD lft shoulder x1 Past Anesthesia/Blood Transfusion Reactions: No Reported Reaction Additional Past Anesthesia/Blood Transfusion Reaction / Comm: never had a blood tranfusion Date of Last Stent Placement:: 02/05/19 Past Psychological History: No Psychological Hx Reported Additional Psychological History / Comment(s): He uses a walker, cane motorized wheelchair. Smoking Status: Former smoker Past Alcohol Use History: Rare Additional Past Alcohol Use History / Comment(s): Pt started smoking in 1964 and quit in 2002. He smoked 2-3 ppd. Past Drug Use History: None Reported - Past Family History Father History Unknown: Yes Additional Family Medical History / Comment(s): Pt does not know his father's history. His parents were when he was 6 yrs old. Mother History Unknown: Yes Family Medical History: Cancer Additional Family Medical History / Comment(s): Pt states mother had some form of cancer which she from at the age of 77yrs. Medications and Allergies Home Medications Medication Instructions Recorded Confirmed Type metFORMIN HCL [Glucophage] 1,000 mg PO BID 06/07/14 11/26/23 History Ferrous Sulfate [Iron (65 MG 325 mg PO DAILY 03/07/16 11/26/23 History Elemental)] Magnesium Oxide [Mag-Ox] 250 mg PO DAILY 07/11/19 11/26/23 History Nitroglycerin Sl Tabs [Nitrostat] 0.4 mg SL Q5M PRN 07/17/21 11/26/23 History allopurinoL [Zyloprim] 100 mg PO DAILY 07/17/21 11/26/23 History carvediloL [Coreg] 12.5 mg PO BID 11/27/21 11/26/23 History Aspirin EC [Ecotrin Low Dose] 81 mg PO DAILY 02/10/22 11/26/23 History lisinopriL [Zestril] 2.5 mg PO DAILY 02/10/22 11/26/23 History Atorvastatin [Lipitor] 80 mg PO DAILY 03/07/22 11/26/23 History Albuterol Inhaler [Ventolin Hfa 2 puff INHALATION RT-Q4H PRN 07/22/23 11/26/23 History Inhaler] Insulin NPH Hum/Reg Insulin Hm 30 unit SQ 0800,1700 10/16/23 11/26/23 History [Novolin 70-30 100 Unit/ml Vial] Allergies Allergy/AdvReac Type Severity Reaction Status Date / Time No Known Allergies Allergy Verified 11/26/23 06:24 Physical Exam Vitals: Vital Signs Temp Pulse Pulse Resp BP BP Pulse Ox 11/26/23 14:15 97.9 F 53 L 16 93/59 99 11/26/23 13:50 49 L 91/55 99 11/26/23 13:30 50 L 93/57 98 11/26/23 13:15 49 L 93/49 98 11/26/23 12:59 50 L 89/52 96 11/26/23 12:44 49 L 97/58 90 L 11/26/23 12:29 52 L 91/55 93 L 11/26/23 12:14 51 L 93/57 93 L 11/26/23 11:59 97.6 F 54 L 104/61 94 L 11/26/23 11:30 49 L 16 99/50 100 11/26/23 11:15 49 L 16 102/51 100 11/26/23 11:00 48 L 16 110/55 100 11/26/23 10:45 48 L 18 110/57 100 11/26/23 10:30 49 L 18 111/57 100 11/26/23 10:15 51 L 18 123/60 99 11/26/23 09:56 97 F L 63 18 143/63 99 11/26/23 07:18 58 L 20 99/46 97 11/26/23 07:00 97.6 F 64 20 107/53 96 Intake and Output 11/26/23 11/26/23 11/26/23 06:59 14:59 22:59 Intake Total 1950 Output Total 450 Balance 1500 Intake: IV 1950 Output: Urine 250 Estimated Blood Loss 200 Other: Weight 112 kg 112 kg Results CBC & Chem 7: 11/26/23 12:10 11/26/23 12:10 Labs: Abnormal Lab Results - Last 24 Hours (Table) 11/26/23 11/26/23 11/26/23 Range/Units 06:46 11:13 12:10 RBC 3.54 L (4.30-5.90) m/uL Hgb 11.8 L (13.0-17.5) gm/dL Hct 35.5 L (39.0-53.0) % MCV 100.1 H (80.0-100.0) fL Plt Count 79 L (150-450) k/uL Lymphocytes # 0.6 L (1.0-4.8) k/uL Chloride (98-107) mmol/L Carbon Dioxide (22-30) mmol/L Glucose (74-99) mg/dL POC Glucose (mg/dL) 200 H 232 H (70-110) mg/dL Calcium (8.4-10.2) mg/dL 11/26/23 Range/Units 12:10 RBC (4.30-5.90) m/uL Hgb (13.0-17.5) gm/dL Hct (39.0-53.0) % MCV (80.0-100.0) fL Plt Count (150-450) k/uL Lymphocytes # (1.0-4.8) k/uL Chloride 108 H (98-107) mmol/L Carbon Dioxide 17 L (22-30) mmol/L Glucose 226 H (74-99) mg/dL POC Glucose (mg/dL) (70-110) mg/dL Calcium 8.2 L (8.4-10.2) mg/dL
[2023-11-26] MEDS: HYDROmorphone 0.5 MG/0.5 ML SYRINGE IVP PRN (16:30)
[2023-11-26 16:31] LABS: Glucose,Whole Blood 212 mg/dL (70-110)
[2023-11-26] MEDS: INSULIN ASPART (NovoLOG) 100 UNIT/ML VIAL SQ SCH ×2 (17:42→21:04)
[2023-11-26] MEDS ORDERED: SODIUM CHLORIDE 0.9% 1,000 ML IV ONE (18:28)
[2023-11-26 20:53] LABS: Glucose,Whole Blood 241 mg/dL (70-110)
[2023-11-26] MEDS: FAMOTIDINE 20 MG/2 ML VIAL IV SCH (20:54)
[2023-11-27] MEDS: ACETAMINOPHEN IV (For NPO) 1,000 MG in EMPTY BAG 1 BAG IVPB SCH ×4 (01:56→20:06)
[2023-11-27] MEDS: HYDROmorphone 1 MG/ML 1 ML SYRINGE IVP PRN ×4 (02:58→20:05)
[2023-11-27] MEDS: LACTATED RINGERS 1,000 ML IV SCH (05:40)
[2023-11-27] MEDS: D5-0.45% NACL WITH KCL 20MEQ/L 1,000 ML IV SCH ×2 (06:05→15:48)
[2023-11-27 06:07] LABS: Glucose,Whole Blood 188 mg/dL (70-110)
[2023-11-27] MEDS: INSULIN ASPART (NovoLOG) 100 UNIT/ML VIAL SQ SCH ×4 (06:12→21:53)
[2023-11-27 07:54] LABS: Basophils % (A) 0 %; Eosinophils % (A) 0 %; HCT 29.9 % (39.0-53.0); Lymphocytes # (A) 1.2 k/uL (1.0-4.8); Lymphocytes % (A) 13 %; MCH 32.7 pg (25.0-35.0); MCV 99.2 fL (80.0-100.0); Mean Platelet Volume 8.6; Monocytes # (A) 0.5 k/uL (0-1.0); Monocytes % (A) 5 %; Neutrophils # (A) 7.4 k/uL (1.3-7.7); Neutrophils % (A) 80 %; Platelet Count 70 k/uL (150-450); RBC 3.02 m/uL (4.30-5.90); RDW 14.3 % (11.5-15.5); WBC 9.2 k/uL (3.8-10.6)
[2023-11-27 07:55] LABS: HGB 9.9 gm/dL (13.0-17.5)
[2023-11-27 07:58] LABS: African American GFR (CKD) >90 (>60 ml/min/1.73 sqM); Anion Gap 8 mmol/L; Blood Urea Nitrogen 13 mg/dL (9-20); Calcium 7.8 mg/dL (8.4-10.2); Carbon Dioxide 21 mmol/L (22-30); Chloride 108 mmol/L (98-107); Glucose 180 mg/dL (74-99); Non-African American GFR(CKD) 87 (>60 ml/min/1.73 sqM); Potassium 4.9 mmol/L (3.5-5.1); Sodium 137 mmol/L (137-145)
[2023-11-27] MEDS: ENOXAPARIN 40 MG/0.4 ML SYRINGE SQ SCH (08:43)
[2023-11-27] MEDS: ATORVASTATIN 80 MG TAB PO SCH (08:43)
[2023-11-27] MEDS: allopurinoL 100 MG TAB PO SCH (08:43)
[2023-11-27] MEDS: ALVIMOPAN 12 MG CAPSULE PO SCH ×2 (08:43→20:07)
[2023-11-27] MEDS: FAMOTIDINE 20 MG/2 ML VIAL IV SCH ×2 (08:43→20:05)
[2023-11-27 11:21] LABS: Glucose,Whole Blood 200 mg/dL (70-110)
--- NOTE | 2023-11-27 11:41 | P.PN ---
Subjective Progress Note Date: 11/27/23 Subjective: Patient seen and examined at bedside. No acute events overnight. He has not had any bowel movements and also not passing any flatus. He has not gotten out of the bed. Still has some abdominal tenderness. Pertinent positives and negatives as discussed above, a complete review of systems was performed and all other systems are negative. Vitals Signs Reviewed. General: nontoxic, no distress, appears at stated age, morbidly obese Derm: warm, dry, dressing clean, dry, intact Head: atraumatic, normocephalic, symmetric Eyes: EOMI, no lid lag, anicteric sclera, pupils equal round reactive to light ENT: Nose and ears atraumatic Neck: No thyromegaly, supple Mouth: no lip lesion, mucus membranes moist Cardiovascular: S1S2 reg, no murmur, no edema Lungs: clear to auscultation bilateral, no rhonchi, no rales, no wheeze, no accessory muscle use, supplemental oxygen Abdominal: soft, tender to palpation. Ext: no gross muscle atrophy, muscle strength muscle strength 5 out of 5 in all 4 extremities, no contractures Neuro: CN II-XII grossly intact Psych: Alert, oriented, appropriate affect Data Reviewed Today: Pertinent Labs: Hemoglobin 9.9, platelets 70, bicarb 21, creatinine 0.8 Imaging: No new imaging Assessment and Plan: Status post abdominal surgery Acute Normocytic anemia, anticipated outcome of surgery -Surgery following -For pain control, patient on IV Tylenol, IV Dilaudid as needed, moderate for respiratory depression -On Lovenox 40 mg subcu daily for DVT prophylaxis -Once oral intake improves, discontinue IV fluids -Repeat CBC tomorrow, no active bleeding at the moment Hypertension history Dyslipidemia History of CAD Systolic CHF, not in exacerbation COPD, not in exacerbation Type 2 diabetes Chronic thrombocytopenia Gout -Restarted lisinopril 2.5 mg daily and Coreg 12.5 mg twice a day -Continue atorvastatin 80 mg daily, continue allopurinol 100 mg daily -Albuterol as needed -Started on sliding scale insulin, resume home insulin once oral intake improves, monitor for hypoglycemia -Repeat BMP tomorrow -Holding aspirin, restart when okay to resume per Gen. surgery Thank you for allowing us to participate in the care of this pleasant patient. Do not hesitate to contact us with questions. Someone can be reached from the [facility] hospitalist group all hours of the day at [phone] or via [employer]. Objective - Vital Signs Vital signs: Vital Signs Temp 98.1 F 11/27/23 06:49 Pulse 67 11/27/23 06:49 Resp 18 11/27/23 06:49 BP 115/58 11/27/23 06:49 Pulse Ox 98 11/27/23 06:49 FiO2 Intake & Output 11/26/23 11/27/23 11/27/23 18:59 06:59 18:59 Intake Total 2250 Output Total 600 Balance 1650 Weight 112 kg 112 kg Intake: IV 1950 Oral 300 Output: Urine 400 Estimated Blood Loss 200 Other: Voiding Method Indwelling Catheter - Labs CBC & Chem 7: 11/27/23 07:19 11/27/23 07:19 Labs: Abnormal Lab Results - Last 24 Hours (Table) 11/26/23 11/26/23 11/26/23 Range/Units 12:10 12:10 16:29 RBC 3.54 L (4.30-5.90) m/uL Hgb 11.8 L (13.0-17.5) gm/dL Hct 35.5 L (39.0-53.0) % MCV 100.1 H (80.0-100.0) fL Plt Count 79 L (150-450) k/uL Lymphocytes # 0.6 L (1.0-4.8) k/uL Chloride 108 H (98-107) mmol/L Carbon Dioxide 17 L (22-30) mmol/L Glucose 226 H (74-99) mg/dL POC Glucose (mg/dL) 212 H (70-110) mg/dL Hemoglobin A1c (<=6.0) % Calcium 8.2 L (8.4-10.2) mg/dL 11/26/23 11/27/23 11/27/23 Range/Units 20:51 06:04 07:19 RBC (4.30-5.90) m/uL Hgb (13.0-17.5) gm/dL Hct (39.0-53.0) % MCV (80.0-100.0) fL Plt Count (150-450) k/uL Lymphocytes # (1.0-4.8) k/uL Chloride (98-107) mmol/L Carbon Dioxide (22-30) mmol/L Glucose (74-99) mg/dL POC Glucose (mg/dL) 241 H 188 H (70-110) mg/dL Hemoglobin A1c 6.8 H (<=6.0) % Calcium (8.4-10.2) mg/dL 11/27/23 11/27/23 11/27/23 Range/Units 07:19 07:19 11:20 RBC 3.02 L (4.30-5.90) m/uL Hgb 9.9 L D (13.0-17.5) gm/dL Hct 29.9 L (39.0-53.0) % MCV (80.0-100.0) fL Plt Count 70 L (150-450) k/uL Lymphocytes # (1.0-4.8) k/uL Chloride 108 H (98-107) mmol/L Carbon Dioxide 21 L (22-30) mmol/L Glucose 180 H (74-99) mg/dL POC Glucose (mg/dL) 200 H (70-110) mg/dL Hemoglobin A1c (<=6.0) % Calcium 7.8 L (8.4-10.2) mg/dL
--- NOTE | 2023-11-27 11:50 | P.PN ---
Subjective Progress Note Date: 11/27/23 CHIEF COMPLAINT: Diverticulitis HISTORY OF PRESENT ILLNESS: Postop day #1 status post lower anterior resection, takedown splenic flexure, partial omentectomy and repair of incisional hernia. Patient reports his pain is controlled. He denies any nausea or vomiting. No flatus. Patient was hypotensive and did receive a total of 1.5 L of fluid bolus. Blood pressure has shown improvement. Afebrile. WBC 9.2 HGB down from 11.8 to 9.9 after IV fluids. Platelets 70 sodium 137 potassium 4.9 creatinine 0 .0 glucose 200 A1c 6.8 PHYSICAL EXAM: VITAL SIGNS: Reviewed. GENERAL: Well-developed in no acute distress. ABDOMEN: Mildly distended. Tenderness with palpation around incision site. Prevana wound vac intact. NEUROLOGIC: Alert and oriented. Cranial nerves II through XII grossly intact. ASSESSMENT: 1. Diverticulitis status post lower anterior resection, takedown splenic flexure, partial omentectomy and repair of incisional hernia PLAN: -Continue clear liquid diet -Encouraged patient to increase activity level -Agree with consult and PT OT -Encouraged patient to use incentive spirometer -Continue pain management. IV Tylenol resumed -Abdominal binder ordered -Apply ice packs as needed around incision site -Continue IV fluids -Continue Entereg -DVT prophylaxis Lovenox and GI prophylaxis Pepcid Physician Inspector [employer] Instrument note has been reviewed by physician. Signing provider agrees with the documented findings, assessment, and plan of care. Objective - Vital Signs Vital signs: Vital Signs Temp 98.1 F 11/27/23 06:49 Pulse 67 11/27/23 06:49 Resp 18 11/27/23 06:49 BP 115/58 11/27/23 06:49 Pulse Ox 98 11/27/23 06:49 FiO2 Intake & Output 11/26/23 11/27/23 11/27/23 18:59 06:59 18:59 Intake Total 2250 Output Total 600 Balance 1650 Weight 112 kg 112 kg Intake: IV 1950 Oral 300 Output: Urine 400 Estimated Blood Loss 200 Other: Voiding Method Indwelling Catheter - Labs CBC & Chem 7: 11/27/23 07:19 11/27/23 07:19 Labs: Abnormal Lab Results - Last 24 Hours (Table) 11/26/23 11/26/23 11/26/23 Range/Units 11:13 12:10 12:10 RBC 3.54 L (4.30-5.90) m/uL Hgb 11.8 L (13.0-17.5) gm/dL Hct 35.5 L (39.0-53.0) % MCV 100.1 H (80.0-100.0) fL Plt Count 79 L (150-450) k/uL Lymphocytes # 0.6 L (1.0-4.8) k/uL Chloride 108 H (98-107) mmol/L Carbon Dioxide 17 L (22-30) mmol/L Glucose 226 H (74-99) mg/dL POC Glucose (mg/dL) 232 H (70-110) mg/dL Calcium 8.2 L (8.4-10.2) mg/dL 11/26/23 11/26/23 11/27/23 Range/Units 16:29 20:51 06:04 RBC (4.30-5.90) m/uL Hgb (13.0-17.5) gm/dL Hct (39.0-53.0) % MCV (80.0-100.0) fL Plt Count (150-450) k/uL Lymphocytes # (1.0-4.8) k/uL Chloride (98-107) mmol/L Carbon Dioxide (22-30) mmol/L Glucose (74-99) mg/dL POC Glucose (mg/dL) 212 H 241 H 188 H (70-110) mg/dL Calcium (8.4-10.2) mg/dL 11/27/23 11/27/23 Range/Units 07:19 07:19 RBC 3.02 L (4.30-5.90) m/uL Hgb 9.9 L D (13.0-17.5) gm/dL Hct 29.9 L (39.0-53.0) % MCV (80.0-100.0) fL Plt Count 70 L (150-450) k/uL Lymphocytes # (1.0-4.8) k/uL Chloride 108 H (98-107) mmol/L Carbon Dioxide 21 L (22-30) mmol/L Glucose 180 H (74-99) mg/dL POC Glucose (mg/dL) (70-110) mg/dL Calcium 7.8 L (8.4-10.2) mg/dL
[2023-11-27 16:47] LABS: Glucose,Whole Blood 174 mg/dL (70-110)
[2023-11-27] MEDS: carvediloL 12.5 MG TAB PO SCH (17:03)
[2023-11-27 21:03] LABS: Glucose,Whole Blood 202 mg/dL (70-110)
[2023-11-28] MEDS: ACETAMINOPHEN IV (For NPO) 1,000 MG in EMPTY BAG 1 BAG IVPB SCH ×5 (03:20→23:17)
[2023-11-28] MEDS: HYDROmorphone 1 MG/ML 1 ML SYRINGE IVP PRN ×4 (03:25→20:31)
[2023-11-28 05:56] LABS: Glucose,Whole Blood 201 mg/dL (70-110)
[2023-11-28] MEDS: INSULIN ASPART (NovoLOG) 100 UNIT/ML VIAL SQ SCH ×4 (06:42→20:24)
[2023-11-28] MEDS: D5-0.45% NACL WITH KCL 20MEQ/L 1,000 ML IV SCH ×3 (06:51→17:34)
[2023-11-28] MEDS: ATORVASTATIN 80 MG TAB PO SCH (09:25)
[2023-11-28] MEDS: carvediloL 12.5 MG TAB PO SCH ×2 (09:25→17:17)
[2023-11-28] MEDS: allopurinoL 100 MG TAB PO SCH (09:25)
[2023-11-28] MEDS: FAMOTIDINE 20 MG/2 ML VIAL IV SCH ×2 (09:42→20:24)
[2023-11-28] MEDS: ENOXAPARIN 40 MG/0.4 ML SYRINGE SQ SCH (09:44)
[2023-11-28] MEDS: ALVIMOPAN 12 MG CAPSULE PO SCH ×2 (09:49→20:24)
[2023-11-28 11:06] LABS: Blood Urea Nitrogen 6.8 mg/dL (9.0-27.0); Calcium 8.3 mg/dL (8.7-10.3); Carbon Dioxide 21.4 mmol/L (21.6-31.8); Chloride 106 mmol/L (96-109); Glucose 181 mg/dL (70-110); Potassium 4.5 mmol/L (3.5-5.5); Sodium 137 mmol/L (135-145)
--- NOTE | 2023-11-28 11:09 | P.PN ---
Subjective Progress Note Date: 11/28/23 CHIEF COMPLAINT: Diverticulitis HISTORY OF PRESENT ILLNESS: Postop day #2 status post lower anterior resection, takedown splenic flexure, partial omentectomy and repair of incisional hernia. Patient reports his pain is controlled. He denies any nausea or vomiting. No flatus. Blood pressure and urine output have improved. Afebrile. Labs pending PHYSICAL EXAM: VITAL SIGNS: Reviewed. GENERAL: Well-developed in no acute distress. ABDOMEN: Mildly distended. Tenderness with palpation around incision site. Prevana wound vac intact. NEUROLOGIC: Alert and oriented. Cranial nerves II through XII grossly intact. ASSESSMENT: 1. Diverticulitis status post lower anterior resection, takedown splenic flexure, partial omentectomy and repair of incisional hernia PLAN: -Continue clear liquid diet -Discontinue Quiles catheter -Encourage patient to ambulate -Encouraged patient to use incentive spirometer -Continue pain management -Abdominal binder ordered -Apply ice packs as needed around incision site -Continue IV fluids -Continue Entereg -DVT prophylaxis Lovenox and GI prophylaxis Pepcid Physician Personal Trainer note has been reviewed by physician. Signing provider agrees with the documented findings, assessment, and plan of care. Objective - Vital Signs Vital signs: Vital Signs Temp 98.4 F 11/28/23 06:53 Pulse 73 11/28/23 06:53 Resp 18 11/28/23 06:53 BP 128/70 11/28/23 06:53 Pulse Ox 97 11/28/23 06:53 FiO2 Intake & Output 11/27/23 11/28/23 11/28/23 18:59 06:59 18:59 Output Total 710 1500 1200 Balance -710 -1500 -1200 Output: Urine 710 1500 1200 Other: Voiding Method Indwelling Catheter Indwelling Catheter - Labs CBC & Chem 7: 11/27/23 07:19 11/27/23 07:19 Labs: Abnormal Lab Results - Last 24 Hours (Table) 11/27/23 11/27/23 11/27/23 Range/Units 07:19 11:20 16:46 POC Glucose (mg/dL) 200 H 174 H (70-110) mg/dL Hemoglobin A1c 6.8 H (<=6.0) % 11/27/23 11/28/23 Range/Units 21:00 05:54 POC Glucose (mg/dL) 202 H 201 H (70-110) mg/dL Hemoglobin A1c (<=6.0) %
[2023-11-28 11:13] LABS: Glucose,Whole Blood 214 mg/dL (70-110)
[2023-11-28 11:15] LABS: HCT 28.5 % (39.6-50.0); HGB 9.3 g/dL (13.0-17.0); Immature Platelet Fraction 4.6 % (1.1-6.1); MCHC 32.6 g/dL (32.0-37.0); MCV 101.1 FL (80.0-97.0); NRBC Per 100 WBC 0.02 X 10*3/uL (0.00-0.01); Platelet Count 62 X 10*3/uL (140-440); RBC 2.82 X 10*6/uL (4.40-5.60); RDW 13.9 % (11.5-14.5); WBC 6.41 X 10*3/uL (4.50-10.00)
--- NOTE | 2023-11-28 13:13 | P.PN ---
Subjective Progress Note Date: 11/28/23 Subjective: Patient seen and examined at bedside. No acute events overnight. He has not had any bowel movements and also not passing any flatus. Still has some abdominal tenderness. Quiles catheter in place Pertinent positives and negatives as discussed above, a complete review of systems was performed and all other systems are negative. Vitals Signs Reviewed. General: nontoxic, no distress, appears at stated age, morbidly obese Derm: warm, dry, dressing clean, dry, intact Head: atraumatic, normocephalic, symmetric Eyes: EOMI, no lid lag, anicteric sclera, pupils equal round reactive to light ENT: Nose and ears atraumatic Neck: No thyromegaly, supple Mouth: no lip lesion, mucus membranes moist Cardiovascular: S1S2 reg, no murmur, no edema Lungs: clear to auscultation bilateral, no rhonchi, no rales, no wheeze, no accessory muscle use Abdominal: soft, tender to palpation. Wound VAC in place Ext: no gross muscle atrophy, muscle strength muscle strength 5 out of 5 in all 4 extremities, no contractures Neuro: CN II-XII grossly intact Psych: Alert, oriented, appropriate affect Data Reviewed Today: Pertinent Labs: Hemoglobin 9. 3, platelets 62, creatinine 0.8, bicarb 21.4, glucose range between 174-214 Imaging: No new imaging Assessment and Plan: Status post abdominal surgery Acute Normocytic anemia, anticipated outcome of surgery -Surgery not reviewed, discontinue Quiles catheter, apply abdominal binder -For pain control, patient on IV Tylenol, IV Dilaudid as needed, moderate for respiratory depression -On Lovenox 40 mg subcu daily for DVT prophylaxis -Once oral intake improves, discontinue IV fluids -Repeat CBC tomorrow, no active bleeding at the moment Hypertension history Dyslipidemia History of CAD Systolic CHF, not in exacerbation COPD, not in exacerbation Type 2 diabetes Chronic thrombocytopenia Gout -Continue lisinopril 2.5 mg daily and Coreg 12.5 mg twice a day -Continue atorvastatin 80 mg daily, continue allopurinol 100 mg daily -Albuterol as needed -on sliding scale insulin, resume home insulin once oral intake improves, monitor for hypoglycemia -Repeat BMP tomorrow -Holding aspirin, restart when okay to resume per Gen. surgery Thank you for allowing us to participate in the care of this pleasant patient. Do not hesitate to contact us with questions. Someone can be reached from the [facility] hospitalist group all hours of the day at [phone] or via perfect serve. Objective - Vital Signs Vital signs: Vital Signs Temp 98.4 F 11/28/23 06:53 Pulse 73 11/28/23 06:53 Resp 18 11/28/23 06:53 BP 128/70 11/28/23 06:53 Pulse Ox 97 11/28/23 06:53 FiO2 Intake & Output 11/27/23 11/28/23 11/28/23 18:59 06:59 18:59 Output Total 710 1500 1200 Balance -710 -1500 -1200 Output: Urine 710 1500 1200 Other: Voiding Method Indwelling Catheter Indwelling Catheter Indwelling Catheter - Labs CBC & Chem 7: 11/28/23 05:42 11/28/23 05:42 Labs: Abnormal Lab Results - Last 24 Hours (Table) 11/27/23 11/27/23 11/28/23 Range/Units 16:46 21:00 05:42 RBC 2.82 L (4.40-5.60) X 10*6/uL Hgb 9.3 L (13.0-17.0) g/dL Hct 28.5 L (39.6-50.0) % MCV 101.1 H (80.0-97.0) FL MCH 33.0 H (27.0-32.0) pg Plt Count 62 L (140-440) X 10*3/uL NRBC/100 WBC Diff 0.02 H (0.00-0.01) X 10*3/uL Carbon Dioxide (21.6-31.8) mmol/L BUN (9.0-27.0) mg/dL BUN/Creatinine Ratio (12.00-20.00) Ratio Glucose (70-110) mg/dL POC Glucose (mg/dL) 174 H 202 H (70-110) mg/dL Calcium (8.7-10.3) mg/dL 11/28/23 11/28/23 11/28/23 Range/Units 05:42 05:54 11:11 RBC (4.40-5.60) X 10*6/uL Hgb (13.0-17.0) g/dL Hct (39.6-50.0) % MCV (80.0-97.0) FL MCH (27.0-32.0) pg Plt Count (140-440) X 10*3/uL NRBC/100 WBC Diff (0.00-0.01) X 10*3/uL Carbon Dioxide 21.4 L (21.6-31.8) mmol/L BUN 6.8 L (9.0-27.0) mg/dL BUN/Creatinine Ratio 8.50 L (12.00-20.00) Ratio Glucose 181 H (70-110) mg/dL POC Glucose (mg/dL) 201 H 214 H (70-110) mg/dL Calcium 8.3 L (8.7-10.3) mg/dL
[2023-11-28 16:30] LABS: Glucose,Whole Blood 202 mg/dL (70-110)
[2023-11-28 20:24] LABS: Glucose,Whole Blood 169 mg/dL (70-110)
[2023-11-29] MEDS: D5-0.45% NACL WITH KCL 20MEQ/L 1,000 ML IV SCH ×2 (03:34→08:00)
[2023-11-29] MEDS: ACETAMINOPHEN IV (For NPO) 1,000 MG in EMPTY BAG 1 BAG IVPB SCH (05:43)
[2023-11-29 05:46] LABS: Glucose,Whole Blood 177 mg/dL (70-110)
[2023-11-29] MEDS: INSULIN ASPART (NovoLOG) 100 UNIT/ML VIAL SQ SCH ×4 (06:17→21:35)
[2023-11-29] MEDS: carvediloL 12.5 MG TAB PO SCH ×2 (06:18→17:32)
[2023-11-29 07:26] LABS: Basophils % (A) 0 %; Eosinophils # (A) 0.1 k/uL (0-0.7); Eosinophils % (A) 2 %; HCT 26.9 % (39.0-53.0); HGB 9.1 gm/dL (13.0-17.5); Lymphocytes # (A) 0.9 k/uL (1.0-4.8); Lymphocytes % (A) 25 %; MCH 33.8 pg (25.0-35.0); MCHC 33.9 g/dL (31.0-37.0); MCV 99.7 fL (80.0-100.0); Mean Platelet Volume 7.9; Monocytes # (A) 0.2 k/uL (0-1.0); Monocytes % (A) 6 %; Neutrophils # (A) 2.4 k/uL (1.3-7.7); Neutrophils % (A) 65 %; RBC 2.69 m/uL (4.30-5.90); RDW 13.9 % (11.5-15.5); WBC 3.6 k/uL (3.8-10.6)
[2023-11-29 07:28] LABS: Platelet Count 56 k/uL (150-450)
[2023-11-29] MEDS: FAMOTIDINE 20 MG/2 ML VIAL IV SCH ×2 (08:00→21:35)
[2023-11-29] MEDS: HYDROmorphone 1 MG/ML 1 ML SYRINGE IVP PRN ×2 (08:10→21:35)
[2023-11-29] MEDS: ENOXAPARIN 40 MG/0.4 ML SYRINGE SQ SCH (08:15)
[2023-11-29] MEDS: allopurinoL 100 MG TAB PO SCH (08:15)
[2023-11-29] MEDS: ALVIMOPAN 12 MG CAPSULE PO SCH ×2 (08:15→21:35)
[2023-11-29] MEDS: ATORVASTATIN 80 MG TAB PO SCH (08:15)
[2023-11-29 10:10] LABS: African American GFR (CKD) >90 (>60 ml/min/1.73 sqM); Anion Gap 9 mmol/L; Blood Urea Nitrogen 7 mg/dL (9-20); Calcium 8.5 mg/dL (8.4-10.2); Carbon Dioxide 22 mmol/L (22-30); Chloride 106 mmol/L (98-107); Glucose 142 mg/dL (74-99); Non-African American GFR(CKD) >90 (>60 ml/min/1.73 sqM); Potassium 4.3 mmol/L (3.5-5.1); Sodium 137 mmol/L (137-145)
--- NOTE | 2023-11-29 10:43 | P.PN ---
Subjective Progress Note Date: 11/29/23 (Surgery) ASSESSMENT: Diverticulitis status post lower anterior resection, takedown splenic flexure, partial omentectomy and repair of incisional hernia PLAN: -Continue diet -Encourage patient to ambulate -Encouraged patient to use incentive spirometer -Continue pain management -Abdominal binder ordered -Apply ice packs as needed around incision site -Continue IV fluids -DVT prophylaxis Lovenox and GI prophylaxis Pepcid Objective - Vital Signs Vital signs: Vital Signs Temp 98.4 F 11/29/23 07:58 Pulse 72 11/29/23 08:16 Resp 18 11/29/23 07:58 BP 123/60 11/29/23 08:16 Pulse Ox 97 11/29/23 07:58 FiO2 Intake & Output 11/28/23 11/29/23 11/29/23 18:59 06:59 18:59 Output Total 2500 300 Balance -2500 -300 Output: Urine 2500 300 Uretheral (Quiles) 600 Other: Voiding Method Indwelling Catheter Urinal # Voids 1 9 - Labs CBC & Chem 7: 11/29/23 06:36 11/29/23 06:36 Labs: Abnormal Lab Results - Last 24 Hours (Table) 11/28/23 11/28/23 11/28/23 Range/Units 05:42 05:42 11:11 WBC (3.8-10.6) k/uL RBC 2.82 L (4.40-5.60) X 10*6/uL Hgb 9.3 L (13.0-17.0) g/dL Hct 28.5 L (39.6-50.0) % MCV 101.1 H (80.0-97.0) FL MCH 33.0 H (27.0-32.0) pg Plt Count 62 L (140-440) X 10*3/uL Lymphocytes # (1.0-4.8) k/uL NRBC/100 WBC Diff 0.02 H (0.00-0.01) X 10*3/uL Carbon Dioxide 21.4 L (21.6-31.8) mmol/L BUN 6.8 L (9.0-27.0) mg/dL Creatinine (0.66-1.25) mg/dL BUN/Creatinine Ratio 8.50 L (12.00-20.00) Ratio Glucose 181 H (70-110) mg/dL POC Glucose (mg/dL) 214 H (70-110) mg/dL Calcium 8.3 L (8.7-10.3) mg/dL 11/28/23 11/28/23 11/29/23 Range/Units 16:28 20:22 05:45 WBC (3.8-10.6) k/uL RBC (4.40-5.60) X 10*6/uL Hgb (13.0-17.0) g/dL Hct (39.6-50.0) % MCV (80.0-97.0) FL MCH (27.0-32.0) pg Plt Count (140-440) X 10*3/uL Lymphocytes # (1.0-4.8) k/uL NRBC/100 WBC Diff (0.00-0.01) X 10*3/uL Carbon Dioxide (21.6-31.8) mmol/L BUN (9.0-27.0) mg/dL Creatinine (0.66-1.25) mg/dL BUN/Creatinine Ratio (12.00-20.00) Ratio Glucose (70-110) mg/dL POC Glucose (mg/dL) 202 H 169 H 177 H (70-110) mg/dL Calcium (8.7-10.3) mg/dL 11/29/23 11/29/23 Range/Units 06:36 06:36 WBC 3.6 L (3.8-10.6) k/uL RBC 2.69 L (4.40-5.60) X 10*6/uL Hgb 9.1 L (13.0-17.0) g/dL Hct 26.9 L (39.6-50.0) % MCV (80.0-97.0) FL MCH (27.0-32.0) pg Plt Count 56 L (140-440) X 10*3/uL Lymphocytes # 0.9 L (1.0-4.8) k/uL NRBC/100 WBC Diff (0.00-0.01) X 10*3/uL Carbon Dioxide (21.6-31.8) mmol/L BUN 7 L (9.0-27.0) mg/dL Creatinine 0.65 L (0.66-1.25) mg/dL BUN/Creatinine Ratio (12.00-20.00) Ratio Glucose 142 H (70-110) mg/dL POC Glucose (mg/dL) (70-110) mg/dL Calcium (8.7-10.3) mg/dL
[2023-11-29 11:21] LABS: Glucose,Whole Blood 195 mg/dL (70-110)
--- NOTE | 2023-11-29 11:46 | P.PN ---
Subjective Progress Note Date: 11/29/23 Subjective: Patient seen and examined at bedside. No acute events overnight. He has not had any bowel movements and also not passing any flatus. Still has some abdominal tenderness. Pertinent positives and negatives as discussed above, a complete review of systems was performed and all other systems are negative. Vitals Signs Reviewed. General: nontoxic, no distress, appears at stated age, morbidly obese Derm: warm, dry, dressing clean, dry, intact Head: atraumatic, normocephalic, symmetric Eyes: EOMI, no lid lag, anicteric sclera, pupils equal round reactive to light ENT: Nose and ears atraumatic Neck: No thyromegaly, supple Mouth: no lip lesion, mucus membranes moist Cardiovascular: S1S2 reg, no murmur, no edema Lungs: clear to auscultation bilateral, no rhonchi, no rales, no wheeze, no accessory muscle use Abdominal: soft, tender to palpation. Wound VAC in place Ext: no gross muscle atrophy, muscle strength muscle strength 5 out of 5 in all 4 extremities, no contractures Neuro: CN II-XII grossly intact Psych: Alert, oriented, appropriate affect Data Reviewed Today: Pertinent Labs: Hemoglobin 9.1, platelet 56, creatinine 0.65, blood sugars range between 142-195 Imaging: No new imaging Assessment and Plan: Status post abdominal surgery Acute Normocytic anemia, anticipated outcome of surgery -Surgery not reviewed, continue supportive care -For pain control, patient on IV Tylenol, IV Dilaudid as needed, moderate for respiratory depression -On Lovenox 40 mg subcu daily for DVT prophylaxis -Once oral intake improves, discontinue IV fluids -Repeat CBC tomorrow, no active bleeding at the moment Hypertension history Dyslipidemia History of CAD Systolic CHF, not in exacerbation COPD, not in exacerbation Type 2 diabetes Chronic thrombocytopenia Gout -Continue lisinopril 2.5 mg daily and Coreg 12.5 mg twice a day -Continue atorvastatin 80 mg daily, continue allopurinol 100 mg daily -Albuterol as needed -on sliding scale insulin, resume home insulin once oral intake improves, monitor for hypoglycemia -Repeat BMP tomorrow -Holding aspirin, restart when okay to resume per Gen. surgery Thank you for allowing us to participate in the care of this pleasant patient. Do not hesitate to contact us with questions. Someone can be reached from the [facility] hospitalist group all hours of the day at [phone] or via perfect serve. Objective - Vital Signs Vital signs: Vital Signs Temp 98.4 F 11/29/23 07:58 Pulse 72 11/29/23 08:16 Resp 18 11/29/23 07:58 BP 123/60 11/29/23 08:16 Pulse Ox 97 11/29/23 07:58 FiO2 Intake & Output 11/28/23 11/29/23 11/29/23 18:59 06:59 18:59 Output Total 2500 300 Balance -2500 -300 Output: Urine 2500 300 Uretheral (Quiles) 600 Other: Voiding Method Indwelling Catheter Urinal # Voids 1 9 - Labs CBC & Chem 7: 11/29/23 06:36 11/29/23 06:36 Labs: Abnormal Lab Results - Last 24 Hours (Table) 11/28/23 11/28/23 11/29/23 Range/Units 16:28 20:22 05:45 WBC (3.8-10.6) k/uL RBC (4.30-5.90) m/uL Hgb (13.0-17.5) gm/dL Hct (39.0-53.0) % Plt Count (150-450) k/uL Lymphocytes # (1.0-4.8) k/uL BUN (9-20) mg/dL Creatinine (0.66-1.25) mg/dL Glucose (74-99) mg/dL POC Glucose (mg/dL) 202 H 169 H 177 H (70-110) mg/dL 11/29/23 11/29/23 11/29/23 Range/Units 06:36 06:36 11:20 WBC 3.6 L (3.8-10.6) k/uL RBC 2.69 L (4.30-5.90) m/uL Hgb 9.1 L (13.0-17.5) gm/dL Hct 26.9 L (39.0-53.0) % Plt Count 56 L (150-450) k/uL Lymphocytes # 0.9 L (1.0-4.8) k/uL BUN 7 L (9-20) mg/dL Creatinine 0.65 L (0.66-1.25) mg/dL Glucose 142 H (74-99) mg/dL POC Glucose (mg/dL) 195 H (70-110) mg/dL
[2023-11-29 16:34] LABS: Glucose,Whole Blood 162 mg/dL (70-110)
[2023-11-29 19:54] LABS: Glucose,Whole Blood 180 mg/dL (70-110)
[2023-11-30] MEDS: D5-0.45% NACL WITH KCL 20MEQ/L 1,000 ML IV SCH ×4 (01:27→20:58)
[2023-11-30] MEDS: HYDROmorphone 1 MG/ML 1 ML SYRINGE IVP PRN ×3 (01:30→20:48)
[2023-11-30 05:40] LABS: Glucose,Whole Blood 185 mg/dL (70-110)
[2023-11-30] MEDS: INSULIN ASPART (NovoLOG) 100 UNIT/ML VIAL SQ SCH ×4 (06:17→20:56)
[2023-11-30] MEDS: carvediloL 12.5 MG TAB PO SCH ×2 (06:18→17:22)
[2023-11-30] MEDS: FAMOTIDINE 20 MG/2 ML VIAL IV SCH ×2 (08:50→20:48)
[2023-11-30] MEDS: ALVIMOPAN 12 MG CAPSULE PO SCH ×2 (09:05→20:48)
[2023-11-30] MEDS: ATORVASTATIN 80 MG TAB PO SCH (09:05)
[2023-11-30] MEDS: allopurinoL 100 MG TAB PO SCH (09:05)
[2023-11-30] MEDS: ENOXAPARIN 40 MG/0.4 ML SYRINGE SQ SCH (09:05)
--- NOTE | 2023-11-30 10:57 | P.PN ---
Subjective Progress Note Date: 11/30/23 Patient is feeling better. His pain is improved. She has had minimal flatus. He denies any significant bowel movements. On exam vital signs are still. Abdomen soft incision is clean dry intact. Objective - Vital Signs Vital signs: Vital Signs Temp 97.9 F 11/30/23 07:26 Pulse 69 11/30/23 07:26 Resp 19 11/30/23 07:26 BP 136/64 11/30/23 07:26 Pulse Ox 96 11/30/23 07:26 FiO2 Intake & Output 11/29/23 11/30/23 11/30/23 18:59 06:59 18:59 Intake Total 1000 Output Total 500 Balance 1000 -500 Intake: Intake, IV Titration 1000 Amount D5-0.45% NaCl with KCl 1000 20Meq/l 1,000 ml @ 125 mls/hr IV .Q8H [facility] Rx#: [id number] Output: Urine 500 Other: Voiding Method Urinal # Voids 8 12 - Labs CBC & Chem 7: 11/29/23 06:36 11/29/23 06:36 Labs: Abnormal Lab Results - Last 24 Hours (Table) 11/29/23 11/29/23 11/29/23 Range/Units 11:20 16:30 19:52 POC Glucose (mg/dL) 195 H 162 H 180 H (70-110) mg/dL 11/30/23 Range/Units 05:38 POC Glucose (mg/dL) 185 H (70-110) mg/dL Assessment and Plan Plan: Status post low anterior resection, takedown splenic flexure and partial o mentectomy. Patient is doing well. He'll have his diet advanced once his bowel functions returned.
[2023-11-30 11:39] LABS: Glucose,Whole Blood 184 mg/dL (70-110)
--- NOTE | 2023-11-30 11:44 | P.PN ---
Subjective Progress Note Date: 11/30/23 Subjective: Patient seen and examined at bedside. No acute events overnight. He has not had any bowel movements and also not passing any flatus. Still has some abdominal tenderness. Pertinent positives and negatives as discussed above, a complete review of systems was performed and all other systems are negative. Vitals Signs Reviewed. General: nontoxic, no distress, appears at stated age, morbidly obese Derm: warm, dry, dressing clean, dry, intact Head: atraumatic, normocephalic, symmetric Eyes: EOMI, no lid lag, anicteric sclera, pupils equal round reactive to light ENT: Nose and ears atraumatic Neck: No thyromegaly, supple Mouth: no lip lesion, mucus membranes moist Cardiovascular: S1S2 reg, no murmur, no edema Lungs: clear to auscultation bilateral, no rhonchi, no rales, no wheeze, no accessory muscle use Abdominal: soft, tender to palpation. Wound VAC in place Ext: no gross muscle atrophy, muscle strength muscle strength 5 out of 5 in all 4 extremities, no contractures Neuro: CN II-XII grossly intact Psych: Alert, oriented, appropriate affect Data Reviewed Today: Pertinent Labs: blood sugars range between 162-185 Imaging: No new imaging Assessment and Plan: Status post abdominal surgery Acute Normocytic anemia, anticipated outcome of surgery -Surgery note reviewed, continue supportive care -For pain control, patient on IV Tylenol, IV Dilaudid as needed, moderate for respiratory depression -On Lovenox 40 mg subcu daily for DVT prophylaxis -Once oral intake improves, discontinue IV fluids Hypertension history Dyslipidemia History of CAD Systolic CHF, not in exacerbation COPD, not in exacerbation Type 2 diabetes Chronic thrombocytopenia Gout -Continue lisinopril 2.5 mg daily and Coreg 12.5 mg twice a day -Continue atorvastatin 80 mg daily, continue allopurinol 100 mg daily -Albuterol as needed -on sliding scale insulin, resume home insulin once oral intake improves, monitor for hypoglycemia -Holding aspirin, restart when okay to resume per Gen. surgery Thank you for allowing us to participate in the care of this pleasant patient. Do not hesitate to contact us with questions. Someone can be reached from the [facility] hospitalist group all hours of the day at [phone] or via Lyft. Objective - Vital Signs Vital signs: Vital Signs Temp 97.9 F 11/30/23 07:26 Pulse 69 11/30/23 07:26 Resp 19 11/30/23 07:26 BP 136/64 11/30/23 07:26 Pulse Ox 96 11/30/23 07:26 FiO2 Intake & Output 11/29/23 11/30/23 11/30/23 18:59 06:59 18:59 Intake Total 1000 Output Total 500 Balance 1000 -500 Intake: Intake, IV Titration 1000 Amount D5-0.45% NaCl with KCl 1000 20Meq/l 1,000 ml @ 125 mls/hr IV .Q8H [facility] Rx#: [id number] Output: Urine 500 Other: Voiding Method Urinal # Voids 8 12 - Labs CBC & Chem 7: 11/29/23 06:36 11/29/23 06:36 Labs: Abnormal Lab Results - Last 24 Hours (Table) 11/29/23 11/29/23 11/30/23 Range/Units 16:30 19:52 05:38 POC Glucose (mg/dL) 162 H 180 H 185 H (70-110) mg/dL 11/30/23 Range/Units 11:37 POC Glucose (mg/dL) 184 H (70-110) mg/dL
[2023-11-30 16:52] LABS: Glucose,Whole Blood 181 mg/dL (70-110)
[2023-11-30 20:50] LABS: Glucose,Whole Blood 176 mg/dL (70-110)
[2023-12-01 05:14] LABS: Glucose,Whole Blood 171 mg/dL (70-110)
[2023-12-01] MEDS: D5-0.45% NACL WITH KCL 20MEQ/L 1,000 ML IV SCH ×2 (06:48→13:11)
[2023-12-01] MEDS: carvediloL 12.5 MG TAB PO SCH ×2 (06:48→17:36)
[2023-12-01] MEDS: INSULIN ASPART (NovoLOG) 100 UNIT/ML VIAL SQ SCH ×4 (06:48→21:44)
[2023-12-01] MEDS: HYDROmorphone 0.5 MG/0.5 ML SYRINGE IVP PRN (06:48)
[2023-12-01] MEDS: FAMOTIDINE 20 MG/2 ML VIAL IV SCH ×2 (09:44→21:29)
[2023-12-01] MEDS: ALVIMOPAN 12 MG CAPSULE PO SCH (09:44)
[2023-12-01] MEDS: ENOXAPARIN 40 MG/0.4 ML SYRINGE SQ SCH (09:44)
[2023-12-01] MEDS: ATORVASTATIN 80 MG TAB PO SCH (09:44)
[2023-12-01] MEDS: allopurinoL 100 MG TAB PO SCH (09:44)
[2023-12-01 11:27] LABS: Glucose,Whole Blood 202 mg/dL (70-110)
--- NOTE | 2023-12-01 13:00 | P.PN ---
Subjective Progress Note Date: 12/01/23 CHIEF COMPLAINT: Diverticulitis HISTORY OF PRESENT ILLNESS: Postop day #5 status post lower anterior resection, takedown splenic flexure, partial omentectomy and repair of incisional hernia. Patient reports his pain is controlled. He denies any nausea or vomiting. He is having flatus. He is requesting advancement of diet. Afebrile. PHYSICAL EXAM: VITAL SIGNS: Reviewed. GENERAL: Well-developed in no acute distress. ABDOMEN: Mildly distended. Tenderness with palpation around incision site. Pr connie wound vac intact. NEUROLOGIC: Alert and oriented. Cranial nerves II through XII grossly intact. ASSESSMENT: 1. Diverticulitis status post lower anterior resection, takedown splenic flexure, partial omentectomy and repair of incisional hernia PLAN: -Advance diet to full liquids -Discontinue IV fluids -Encourage patient to ambulate -Encouraged patient to use incentive spirometer -Continue pain management -Continue Entereg -DVT prophylaxis Lovenox and GI prophylaxis Pepcid Physician Cap Sizer note has been reviewed by physician. Signing provider agrees with the documented findings, assessment, and plan of care. Objective - Vital Signs Vital signs: Vital Signs Temp 98.0 F 12/01/23 07:27 Pulse 67 12/01/23 07:27 Resp 19 12/01/23 07:27 BP 115/55 12/01/23 07:27 Pulse Ox 99 12/01/23 07:27 FiO2 Intake & Output 11/30/23 12/01/23 12/01/23 18:59 06:59 18:59 Intake Total 2000 1000 Output Total 2300 Balance 1999 -1300 Intake: Intake, IV Titration 2000 Amount D5-0.45% NaCl with KCl 2000 20Meq/l 1,000 ml @ 125 mls/hr IV .Q8H [facility] Rx#: [id number] Oral 1000 Output: Urine 2300 Other: # Voids 7 1 - Labs CBC & Chem 7: 11/29/23 06:36 11/29/23 06:36 Labs: Abnormal Lab Results - Last 24 Hours (Table) 11/30/23 11/30/23 12/01/23 Range/Units 16:51 20:49 05:12 POC Glucose (mg/dL) 181 H 176 H 171 H (70-110) mg/dL 12/01/23 Range/Units 11:25 POC Glucose (mg/dL) 202 H (70-110) mg/dL
[2023-12-01] MEDS: HYDROcodone/APAP 5-325MG 1 EACH TAB PO PRN ×2 (14:36→21:30)
--- NOTE | 2023-12-01 15:05 | P.PN ---
Subjective Progress Note Date: 12/01/23 Hospital course: Patient is a very pleasant 78-year-old male with a past medical history of CAD, hypertension, hyperlipidemia, chronic systolic heart failure with previously known EF of 40-45%, COPD, type II insulin-dependent diabetes mellitus, and diverticulitis. Patient admitted to the hospital for planned elective partial colectomy and omentectomy. Patient underwent abdominal surgery with low anterior resection, takedown of splenic flexure, partial omentectomy, and repair of incisional hernia on 11/26/[address] Quiroz. We have been following for medical management throughout patient's hospitalization. Physical exam: Patient seen and fully evaluated at bedside this morning. Patient ambulating up and down the [place] with walker and appears to be doing well. Patient is postoperative day 5. Patient denies having any nausea or vomiting and reports increased appetite. Patient is reporting flatus and is yet to have bowel movement since surgical procedure was completed. Vital signs reviewed and stable. General: Nontoxic, no distress and appears stated age. Derm: Skin warm and dry, normal coloration for ethnicity. Head: Atraumatic, normocephalic and symmetric. Eyes: EOMs intact, no lid lag, and anicteric sclera Mouth: no lip lesions, mucus membranes moist Cardiovascular: regular rate and rhythm with normal S1S2, no murmur, positive posterior tibial pulses bilaterally, and cap refill < 2 seconds. Lungs: Respirations even, regular, and unlabored on room air. Lungs CTA bilaterally, no rhonchi, no rales, no wheezing, and no accessory muscle usage. Abdominal: soft, nontender to palpation, no guarding, no appreciable organomegaly Ext: ROM intact. No gross muscle atrophy, no edema, no contractures Neuro: Speech clear, face symmetrical and CN II-XII grossly intact with no noted focal neuro deficits Psych: Alert and oriented to person, place, time, and situation. Appropriate and pleasant affect. Assessment and Plan of Care: Status post abdominal surgery with low anterior resection, takedown of splenic flexure, partial omentectomy, and repair of incisional hernia Acute Normocytic anemia, anticipated outcome of surgery -Gen. surgery following, discussed plan of care Gen. surgery PA. -For pain control, patient on IV Tylenol, IV Dilaudid as needed, moderate for respiratory depression -On Lovenox 40 mg subcu daily for DVT prophylaxis -Patient tolerating clear liquid diet, diet to be advanced as recommended by general surgery team. Hypertension history Dyslipidemia History of CAD Systolic CHF, not in exacerbation COPD, not in exacerbation Type 2 diabetes Chronic thrombocytopenia Gout -Continue lisinopril 2.5 mg daily and Coreg 12.5 mg twice a day -Continue atorvastatin 80 mg daily, continue allopurinol 100 mg daily -Albuterol as needed for shortness of breath and/or wheezing -Continue glycemic protocol with NovoLog sliding scale, resume home insulin regimen once oral intake improves, monitor for hypoglycemia -Holding aspirin, restart when okay to resume per Gen. surgery Data and imaging reviewed: No new labs for review this morning we'll order for tomorrow. Vital signs reviewed and stable. Blood pressure 115/55, heart rate 67, respiratory rate 19, temp 98.0F, SpO2 of 99% on room air. Thank you for allowing us to participate in the care of this pleasant patient. Do not hesitate to contact us with questions. Someone can be reached from the [facility] hospitalist group all hours of the day at [phone] or via [employer]. Patient was seen independently by Nurse Pracitioner. This document was prepared using [employer] dictation software. Please allow for errors in claims investigator, while rare they do occur. Objective - Vital Signs Vital signs: Vital Signs Temp 98.0 F 12/01/23 07:27 Pulse 67 12/01/23 07:27 Resp 19 12/01/23 07:27 BP 115/55 12/01/23 07:27 Pulse Ox 99 12/01/23 07:27 FiO2 Intake & Output 11/30/23 12/01/23 12/01/23 18:59 06:59 18:59 Intake Total 2000 1000 Output Total 2300 Balance 1999 -1299 Intake: Intake, IV Titration 2000 Amount D5-0.45% NaCl with KCl 2000 20Meq/l 1,000 ml @ 125 mls/hr IV .Q8H [facility] Rx#: [id number] Oral 1000 Output: Urine 2300 Other: # Voids 7 1 - Labs CBC & Chem 7: 11/29/23 06:36 11/29/23 06:36 Labs: Abnormal Lab Results - Last 24 Hours (Table) 11/30/23 11/30/23 11/30/23 Range/Units 11:37 16:51 20:49 POC Glucose (mg/dL) 184 H 181 H 176 H (70-110) mg/dL 12/01/23 Range/Units 05:12 POC Glucose (mg/dL) 171 H (70-110) mg/dL
[2023-12-01 16:01] VITALS: BMI 38.7
[2023-12-01 17:28] LABS: Glucose,Whole Blood 170 mg/dL (70-110)
[2023-12-01 21:39] LABS: Glucose,Whole Blood 156 mg/dL (70-110)
[2023-12-02] MEDS: HYDROcodone/APAP 5-325MG 1 EACH TAB PO PRN ×3 (03:45→14:05)
[2023-12-02 05:32] LABS: Glucose,Whole Blood 169 mg/dL (70-110)
[2023-12-02] MEDS: INSULIN ASPART (NovoLOG) 100 UNIT/ML VIAL SQ SCH ×2 (06:30→12:33)
[2023-12-02] MEDS: carvediloL 12.5 MG TAB PO SCH (06:30)
[2023-12-02 08:04] VITALS: BP 115/52; PULSE 60; RESP 17; TEMP 98.5
[2023-12-02] MEDS: ENOXAPARIN 40 MG/0.4 ML SYRINGE SQ SCH (08:28)
[2023-12-02] MEDS: allopurinoL 100 MG TAB PO SCH (08:29)
[2023-12-02] MEDS: ATORVASTATIN 80 MG TAB PO SCH (08:29)
[2023-12-02 08:51] LABS: Basophils % (A) 0 %; Eosinophils # (A) 0.1 k/uL (0-0.7); Eosinophils % (A) 2 %; HCT 29.2 % (39.0-53.0); HGB 9.8 gm/dL (13.0-17.5); Lymphocytes # (A) 1.1 k/uL (1.0-4.8); Lymphocytes % (A) 26 %; MCH 33.1 pg (25.0-35.0); MCHC 33.7 g/dL (31.0-37.0); MCV 98.3 fL (80.0-100.0); Mean Platelet Volume 7.8; Monocytes # (A) 0.3 k/uL (0-1.0); Monocytes % (A) 7 %; Neutrophils # (A) 2.6 k/uL (1.3-7.7); Neutrophils % (A) 63 %; RBC 2.97 m/uL (4.30-5.90); RDW 14.3 % (11.5-15.5); WBC 4.1 k/uL (3.8-10.6)
[2023-12-02 08:54] LABS: Platelet Count 97 k/uL (150-450)
[2023-12-02] MEDS ORDERED: FAMOTIDINE 20 MG TAB PO SCH (09:00)
[2023-12-02 10:43] LABS: Glucose,Whole Blood 167 mg/dL (70-110)
--- NOTE | 2023-12-02 13:13 | P.DS ---
Providers Date of admission: 11/26/23 05:35 Expected date of discharge: 12/02/23 Attending physician: Julien Quiroz Consults: 11/26/23 14:13 Consult Physician Routine Consulting Provider: Marli Boswell Consult Reason/Comments: medical management Do you want consulting provider notified?: Yes Primary care physician: Carrie Bains Hospital Course: Discharge diagnosis 1. Diverticulitis status post lower anterior resection, takedown splenic flexure, partial omentectomy and repair of incisional hernia Hospital course This is a 78-year-old male with history of diverticulitis. He is status post lower anterior resection, takedown splenic flexure, partial omentectomy and repair of incisional hernia. Patient's pain is controlled. He is tolerating diet. He is having bowel movements. He has been up and ambulating. He is afebrile. He is stable for discharge. Please refer to chart for any further details. Physician Multimedia Educational Specialist note has been reviewed by physician. Signing provider agrees with the documented findings, assessment, and plan of care. Patient Condition at Discharge: Stable Plan - Discharge Summary Discharge Rx Participant: Yes New Discharge Prescriptions: New Ibuprofen [Motrin] 600 mg PO Q8HR PRN #30 tab PRN Reason: Pain oxyCODONE HCL [OxyIR] 5 mg PO Q6H PRN 3 Days #12 tab PRN Reason: Pain Acetaminophen Tab [Tylenol] 1,000 mg PO Q6HR PRN #30 tablet PRN Reason: Pain Continue metFORMIN HCL [Glucophage] 1,000 mg PO BID Ferrous Sulfate [Iron (65 MG Elemental)] 325 mg PO DAILY Magnesium Oxide [Mag-Ox] 250 mg PO DAILY allopurinoL [Zyloprim] 100 mg PO DAILY carvediloL [Coreg] 12.5 mg PO BID lisinopriL [Zestril] 2.5 mg PO DAILY Insulin NPH Hum/Reg Insulin Hm [NovoLIN 70-30 100 Unit/ml Vial] 30 unit SQ 0800,1700 Nitroglycerin Sl Tabs [Nitrostat] 0.4 mg SL Q5M PRN PRN Reason: Chest Pain Aspirin EC [Ecotrin Low Dose] 81 mg PO DAILY Atorvastatin [Lipitor] 80 mg PO DAILY Albuterol Inhaler [Ventolin Hfa Inhaler] 2 puff INHALATION RT-Q4H PRN PRN Reason: Shortness Of Breath Discharge Medication List metFORMIN HCL [Glucophage] 1,000 mg PO BID 06/07/14 [History] Ferrous Sulfate [Iron (65 MG Elemental)] 325 mg PO DAILY 03/07/16 [History] Magnesium Oxide [Mag-Ox] 250 mg PO DAILY 07/11/19 [History] Nitroglycerin Sl Tabs [Nitrostat] 0.4 mg SL Q5M PRN 07/17/21 [History] allopurinoL [Zyloprim] 100 mg PO DAILY 07/17/21 [History] carvediloL [Coreg] 12.5 mg PO BID 11/27/21 [History] Aspirin EC [Ecotrin Low Dose] 81 mg PO DAILY 02/10/22 [History] lisinopriL [Zestril] 2.5 mg PO DAILY 02/10/22 [History] Atorvastatin [Lipitor] 80 mg PO DAILY 03/07/22 [History] Albuterol Inhaler [Ventolin Hfa Inhaler] 2 puff INHALATION RT-Q4H PRN 07/22/23 [History] Insulin NPH Hum/Reg Insulin Hm [NovoLIN 70-30 100 Unit/ml Vial] 30 unit SQ 0800,1700 10/16/23 [History] Acetaminophen Tab [Tylenol] 1,000 mg PO Q6HR PRN #30 tablet 12/02/23 [Rx] Ibuprofen [Motrin] 600 mg PO Q8HR PRN #30 tab 12/02/23 [Rx] oxyCODONE HCL [OxyIR] 5 mg PO Q6H PRN 3 Days #12 tab 12/02/23 [Rx] Follow up Appointment(s)/Referral(s): [facility], [NON-STAFF] - As Needed ([facility] will call you to schedule your in home nursing and physical therapy visits. ) Julien Quiroz MD [STAFF PHYSICIAN] - 1 Week Activity/Diet/Wound Care/Special Instructions: may remove prevena tomorrow No driving while taking OxyIr No lifting over 10 pounds Shower daily. No soaking or tub baths for 2 weeks Very light activity until you are reevaluated at your follow up appointment with your surgeon Discharge Disposition: HOME WITH HOME HEALTH SERVICES
--- NOTE | 2023-12-02 14:00 | P.PN ---
Subjective Progress Note Date: 12/02/23 Hospital course: Patient is a very pleasant 78-year-old male with a past medical history of CAD, hypertension, hyperlipidemia, chronic systolic heart failure with previously known EF of 40-45%, COPD, type II insulin-dependent diabetes mellitus, and diverticulitis. Patient admitted to the hospital for planned elective partial colectomy and omentectomy. Patient underwent abdominal surgery with low anterior resection, takedown of splenic flexure, partial omentectomy, and repair of incisional hernia on 11/26/[address] Quiroz. We have been following for medical management throughout patient's hospitalization. Physical exam: Patient seen and fully evaluated at bedside this morning. He appears to be doing well. Patient is postoperative day 6. He denies having any nausea or vomiting and has tolerated full liquid diet without difficulty. Patient reports having 5 bowel movements since yesterday afternoon. Vital signs reviewed and stable. General: Nontoxic, no distress and appears stated age. Derm: Skin warm and dry, normal coloration for ethnicity. Head: Atraumatic, normocephalic and symmetric. Eyes: EOMs intact, no lid lag, and anicteric sclera Mouth: no lip lesions, mucus membranes moist Cardiovascular: regular rate and rhythm with normal S1S2, no murmur, positive posterior tibial pulses bilaterally, and cap refill < 2 seconds. Lungs: Respirations even, regular, and unlabored on room air. Lungs CTA bilaterally, no rhonchi, no rales, no wheezing, and no accessory muscle usage. Abdominal: soft, nontender to palpation, no guarding, no appreciable organ omegaly Ext: ROM intact. No gross muscle atrophy, no edema, no contractures Neuro: Speech clear, face symmetrical and CN II-XII grossly intact with no noted focal neuro deficits Psych: Alert and oriented to person, place, time, and situation. Appropriate and pleasant affect. Assessment and Plan of Care: Status post abdominal surgery with low anterior resection, takedown of splenic flexure, partial omentectomy, and repair of incisional hernia Bicytopenia -Gen. surgery following, discussed plan of care Gen. surgery PA. -Continue symptomatically Pain management -Patient tolerated full liquid diet and has been advanced to regular diet this morning. Hypertension history Dyslipidemia History of CAD Systolic CHF, not in exacerbation COPD, not in exacerbation Type 2 diabetes Chronic thrombocytopenia Gout -Continue lisinopril 2.5 mg daily and Coreg 12.5 mg twice a day -Continue atorvastatin 80 mg daily, continue allopurinol 100 mg daily -Albuterol as needed for shortness of breath and/or wheezing -Continue glycemic protocol with NovoLog sliding scale, resume home insulin regimen once oral intake improves, monitor for hypoglycemia -Holding aspirin, restart when okay to resume per Gen. surgery Data and imaging reviewed: CBC showing bicytopenia with stable hemoglobin of 9.8 and platelet count of 97. Vital signs reviewed and stable. Blood pressure 115/52, heart rate 60, respiratory rate 17, temp 98.5F, SpO2 of 96% on room air. Patient is medically optimized for discharge with no further recommendations at this time. Patient may be discharged once cleared by primary admitting general surgery team, this was discussed with general surgery PA. Thank you for allowing us to participate in the care of this pleasant patient. Do not hesitate to contact us with questions. Someone can be reached from the [facility] hospitalist group all hours of the day at [phone] or via [employer]. Patient was seen independently by Nurse Pracitioner. This document was prepared using [employer] dictation software. Please allow for errors in petroleum blending plant operator, while rare they do occur. Objective - Vital Signs Vital signs: Vital Signs Temp 98.5 F 12/02/23 07:10 Pulse 60 12/02/23 07:10 Resp 17 12/02/23 07:10 BP 115/52 12/02/23 07:10 Pulse Ox 96 12/02/23 07:10 FiO2 Intake & Output 12/01/23 12/02/23 12/02/23 18:59 06:59 18:59 Weight 112 kg Other: # Voids 3 1 # Bowel Movements 2 1 - Labs CBC & Chem 7: 12/02/23 08:20 11/29/23 06:36 Labs: Abnormal Lab Results - Last 24 Hours (Table) 12/01/23 12/01/23 12/01/23 Range/Units 11:25 17:27 21:36 POC Glucose (mg/dL) 202 H 170 H 156 H (70-110) mg/dL 12/02/23 Range/Units 05:32 POC Glucose (mg/dL) 169 H (70-110) mg/dL
== END 2023-12-02 14:34 | disposition home health service (06) | DRG 330 ==
LOC: 2ORMAIN 05:35 → 4SSUR 11:28
PROVIDERS: ADMIT Surgery; ATTEND Surgery
PROC: 0DBU0ZZ Excision of Omentum, Open Approach (ICD-10-PCS; 2023-11-26)
PROC: 0WQF0ZZ Repair Abdominal Wall, Open Approach (ICD-10-PCS; 2023-11-26)
PROC: 0DBN0ZZ Excision of Sigmoid Colon, Open Approach (ICD-10-PCS; principal; 2023-11-26 07:30)
DX: K57.32 Diverticulitis of large intestine without perforation or abscess without bleeding (principal); I50.22 Chronic systolic (congestive) heart failure; I25.2 Old myocardial infarction; I25.10 Atherosclerotic heart disease of native coronary artery without angina pectoris; I11.0 Hypertensive heart disease with heart failure; D64.9 Anemia, unspecified; G93.89 Other specified disorders of brain; E78.5 Hyperlipidemia, unspecified; E11.9 Type 2 diabetes mellitus without complications; D69.6 Thrombocytopenia, unspecified; I25.5 Ischemic cardiomyopathy; J44.9 Chronic obstructive pulmonary disease, unspecified; K43.2 Incisional hernia without obstruction or gangrene; M10.9 Gout, unspecified; Z79.4 Long term (current) use of insulin; Z79.82 Long term (current) use of aspirin; Z79.84 Long term (current) use of oral hypoglycemic drugs; Z79.899 Other long term (current) drug therapy; Z87.11 Personal history of peptic ulcer disease; Z87.442 Personal history of urinary calculi; Z87.891 Personal history of nicotine dependence; Z96.653 Presence of artificial knee joint, bilateral
CPT/HCPCS: 64999; 80048; 83036; 83735; 85025; 85027; 88307; 94760

== ENCOUNTER 2023-12-08 10:26 | Emergency (ER) | payer MEDICARE ==
--- NOTE | 2023-12-08 10:41 | ED ---
Recheck HPI - General Chief Complaint: Recheck/Abnormal Lab/Rx Stated Complaint: Post Op complications Time Seen by Provider: 12/08/23 10:33 Source: patient, EMS, RN notes reviewed Mode of arrival: EMS Limitations: no limitations - History of Present Illness Initial Comments: Patient is 78-year-old male presented ER with chief complaint of wound drainage. Patient underwent a bowel resection by Dr. Quiroz on 11/26/23. Patient was discharged from the hospital on 12/02/23. Patient has been having a home wound care nurse monitor the incision. Patient states that the incision has been having clear, white and pearly drainage for about a week. He states he was sent home on antibiotics and has since completed the course. They contacted Dr. Quiroz and was told to come to ER for evaluation. Patient denies any fevers, chills, night sweats. Patient states that his last bowel movement was yesterday and he has been passing a lot of gas. Patient denies any other complaints. - Related Data Home Medications Medication Instructions Recorded Confirmed metFORMIN HCL [Glucophage] 1,000 mg PO BID 06/07/14 12/08/23 Ferrous Sulfate [Iron (65 MG 325 mg PO DAILY 03/07/16 12/08/23 Elemental)] Magnesium Oxide [Mag-Ox] 250 mg PO DAILY 07/11/19 12/08/23 Nitroglycerin Sl Tabs [Nitrostat] 0.4 mg SL Q5M PRN 07/17/21 12/08/23 allopurinoL [Zyloprim] 100 mg PO DAILY 07/17/21 12/08/23 carvediloL [Coreg] 12.5 mg PO BID 11/27/21 12/08/23 Aspirin EC [Ecotrin Low Dose] 81 mg PO DAILY 02/10/22 12/08/23 lisinopriL [Zestril] 2.5 mg PO DAILY 02/10/22 12/08/23 Atorvastatin [Lipitor] 80 mg PO DAILY 03/07/22 12/08/23 Albuterol Inhaler [Ventolin Hfa 2 puff INHALATION RT-Q4H PRN 07/22/23 12/08/23 Inhaler] Insulin NPH Hum/Reg Insulin Hm 30 unit SQ 0800,1700 10/16/23 12/08/23 [NovoLIN 70-30 100 Unit/ml Vial] Previous Rx's Medication Instructions Recorded Acetaminophen Tab [Tylenol] 1,000 mg PO Q6HR PRN #30 tablet 12/02/23 Ibuprofen [Motrin] 600 mg PO Q8HR PRN #30 tab 12/02/23 oxyCODONE HCL [OxyIR] 5 mg PO Q6H PRN 3 Days #12 tab 12/02/23 Cephalexin [Keflex] 500 mg PO Q6HR 10 Days #40 cap 12/08/23 Sulfamethox-Tmp 800-160Mg [Bactrim 1 each PO Q12HR #20 tab 12/08/23 Ds] Allergies Allergy/AdvReac Type Severity Reaction Status Date / Time No Known Allergies Allergy Verified 12/08/23 11:14 Review of Systems ROS Statement: Those systems with pertinent positive or pertinent negative responses have been documented in the HPI. ROS Other: All systems not noted in ROS Statement are negative. Past Medical History Past Medical History: Blood Disorder, Coronary Artery Disease (CAD), Chest Pain / Angina, Heart Failure, COPD, Diabetes Mellitus, GERD/Reflux, Hyperlipidemia, Hypertension, Liver Disease, Myocardial Infarction ([place]), Pneumonia, Supraventricular Tachycardia (SVT), Vascular Disorder Additional Past Medical History / Comment(s): Recent hospitalization for diverticulitis. Ischemic CMP, nonsustained ventriclar arrhythmia, systolic heart failure, [place] x 2 in 2001, 1994, thrombocytopenia, kidney stones, gout bilateral feet/ toes, hx bilat tinnitis, stomach ulcers 2020 Last Myocardial Infarction Date:: 2001 History of Any Multi-Drug Resistant Organisms: None Reported Past Surgical History: Cardiac Ablation, Cholecystectomy, Heart Catheterization, Heart Catheterization With Stent, Joint Replacement, Orthopedic Surgery Additional Past Surgical History / Comment(s): PCIs with total 6 stents per patient, cardiac ablation-AVRNT, EPS, R caratid stent, R knee arthroscopy, bilateral total knee replacements x2-L side became infected-had I&D, bilateral shoulder rotator cuff surgeries with R side done 3 times, L ankle surgery, bilateral carpal tunnel releases, colonoscopy. EGD lft shoulder x1 Past Anesthesia/Blood Transfusion Reactions: No Reported Reaction Additional Past Anesthesia/Blood Transfusion Reaction / Comment(s): never had a blood tranfusion Date of Last Stent Placement:: 02/05/19 Past Psychological History: No Psychological Hx Reported Smoking Status: Former smoker Past Alcohol Use History: Unable to Obtain Past Drug Use History: Unable to Obtain - Past Family History Father History Unknown: Yes Additional Family Medical History / Comment(s): Pt does not know his father's history. His parents were when he was 6 yrs old. Mother History Unknown: Yes Family Medical History: Cancer Additional Family Medical History / Comment(s): Pt states mother had some form of cancer which she from at the age of 77yrs. General Exam Limitations: no limitations General appearance: alert, in no apparent distress Head exam: Present: atraumatic, normocephalic, normal inspection Respiratory exam: Present: normal lung sounds bilaterally. Absent: respiratory distress, wheezes, rales, rhonchi, stridor Cardiovascular Exam: Present: regular rate, normal rhythm, normal heart sounds. Absent: systolic murmur, diastolic murmur, rubs, gallop, clicks GI/Abdominal exam: Present: soft, tenderness (mild tenderness and ecchymosis surrounding midline surgical incision. dermal tuan in place. minimal clear drainage. no surrounding erythema present.), normal bowel sounds. Absent: distended, guarding, rebound, rigid Neurological exam: Present: alert, oriented X3, CN II-XII intact Psychiatric exam: Present: normal affect, normal mood Skin exam: Present: warm, dry, intact, normal color. Absent: rash Course Vital Signs 12/08/23 12/08/23 10:32 11:48 Temperature 98 F Pulse Rate 70 66 Respiratory 18 16 Rate Blood Pressure 107/46 122/55 O2 Sat by Pulse 98 97 Oximetry Medical Decision Making - Medical Decision Making Was pt. sent in by a medical professional or institution (, PA, AIRSET MOLDER, urgent care, hospital, or penitentiary...) When possible be specific @ -No Did you speak to anyone other than the patient for history (EMS, parent, family, police, friend...)? What history was obtained from this source @ -No Did you review nursing and triage notes (agree or disagree)? Why? @ -I reviewed and agree with nursing and triage notes Were old charts reviewed (outside hosp., previous admission, EMS record, old EKG, old radiological studies, urgent care reports/EKG's, penitentiary records)? Report findings @ -Yes, I reviewed discharge summary and operative notes from patient's hospital stay. Patient had a bowel resection on 11/26/23 and was discharged on 12/02/23. Patient was not started on antibiotics at discharge. Differential Diagnosis (chest pain, altered mental status, abdominal pain women, abdominal pain men, vaginal bleeding, weakness, fever, dyspnea, syncope, headach e, dizziness, GI bleed, back pain, seizure, CVA, palpatations, mental health, musculoskeletal)? @ -Wound dehiscence, cellulitis, sepsis, this list is not all inclusive EKG interpreted by me (3pts min.). @ -None X-rays interpreted by me (1pt min.). @ -None done CT interpreted by me (1pt min.). @ -None done U/S interpreted by me (1pt. min.). @ -None done What testing was considered but not performed or refused? (CT, X-rays, U/S, labs)? Why? @ -None What meds were considered but not given or refused? Why? @ -None Did you discuss the management of the patient with other professionals (professionals i.e. , PA, AIRSET MOLDER, lab, RT, psych nurse, social work case manager, manager restaurant, teacher, special forces warrant officer, social work case manager)? Give summary @ -Yes, I discussed this case with Dr. Quiroz who advised PO antibiotics and discharge. Was smoking cessation discussed for >3mins.? @ -No Was critical care preformed (if so, how long)? @ -No Were there social determinants of health that impacted care today? How? (Homelessness, low income, unemployed, alcoholism, drug addiction, transportation, low edu. Level, literacy, decrease access to med. care, nursing home, rehab)? @ -No Was there de-escalation of care discussed even if they declined (Discuss DNR or withdrawal of care, Hospice)? DNR status @ -No What co-morbidities impacted this encounter? (DM, HTN, Smoking, COPD, CAD, Cancer, CVA, ARF, Chemo, Hep., AIDS, mental health diagnosis, sleep apnea, morbid obesity)? @ -Obesity Was patient admitted / discharged? Hospital course, mention meds given and route, prescriptions, significant lab abnormalities, going to OR and other pertinent info. @ -Discharged. Patient is a 78 year old male presenting to the ER with a chief complaint of wound check. Vitals stable. History and physical exam were completed. Healing midline surgical incision with dermal tuan in place. No surrounding erythema, induration or purulent drainage present. Labs obtained in the ER were without signs of infection. I spoke with Dr. Quiroz who advised by mouth antibiotics. Patient reports he has a follow-up appointment with Dr. Quiroz as soon. I advised him to attend that appointment. I educated patient on importance of completing full course of antibiotics. Patient prescribe bactrim and keflex. I discussed lab findings with patient. Patient will be discharged in stable condition with follow-up to Dr. Quiroz and PCP. Patient expressed understanding and agreement with care plan. Undiagnosed new problem with uncertain prognosis? @ -No Drug Therapy requiring intensive monitoring for toxicity (Heparin, Nitro, Insulin, Cardizem)? @ -No Were any procedures done? @ -No Diagnosis/symptom? @ -Wound check Acute, or Chronic, or Acute on Chronic? @ -Acute Uncomplicated (without systemic symptoms) or Complicated (systemic symptoms)? @ -Uncomplicated Side effects of treatment? @ -No Exacerbation, Progression, or Severe Exacerbation? @ -No Poses a threat to life or bodily function? How? (Chest pain, [place], [place], pneumonia, PE, COPD, DKA, ARF, appy, cholecystitis, CVA, Diverticulitis, Homicidal, Suicid al, threat to staff... and all critical care pts) @ -No - Lab Data Result diagrams: 12/08/23 11:29 12/08/23 11:29 Lab Results 12/08/23 12/08/23 12/08/23 Range/Units 11:29 11:29 11:29 WBC 4.4 (3.8-10.6) k/uL RBC 3.14 L (4.30-5.90) m/uL Hgb 10.4 L (13.0-17.5) gm/dL Hct 31.1 L (39.0-53.0) % MCV 99.0 (80.0-100.0) fL MCH 33.2 (25.0-35.0) pg MCHC 33.5 (31.0-37.0) g/dL RDW 13.8 (11.5-15.5) % Plt Count 130 L (150-450) k/uL MPV 7.8 Hypochromasia Slight Poikilocytosis Slight Sodium 141 (137-145) mmol/L Potassium 4.6 (3.5-5.1) mmol/L Chloride 110 H (98-107) mmol/L Carbon Dioxide 24 (22-30) mmol/L Anion Gap 7 mmol/L BUN 16 (9-20) mg/dL Creatinine 0.75 (0.66-1.25) mg/dL Est GFR (CKD-EPI)AfAm >90 (>60 ml/min/1.73 sqM) Est GFR (CKD-EPI)NonAf 89 (>60 ml/min/1.73 sqM) Glucose 162 H (74-99) mg/dL Lactic Ac Sepsis Rflx Plasma Lactic Acid Evgeny 2.2 H* (0.7-2.0) mmol/L Calcium 9.3 (8.4-10.2) mg/dL Total Bilirubin 1.1 (0.2-1.3) mg/dL AST 35 (17-59) U/L ALT 33 (4-49) U/L Alkaline Phosphatase 140 H (38-126) U/L Total Protein 7.0 (6.3-8.2) g/dL Albumin 3.8 (3.5-5.0) g/dL 12/08/23 Range/Units 11:53 WBC (3.8-10.6) k/uL RBC (4.30-5.90) m/uL Hgb (13.0-17.5) gm/dL Hct (39.0-53.0) % MCV (80.0-100.0) fL MCH (25.0-35.0) pg MCHC (31.0-37.0) g/dL RDW (11.5-15.5) % Plt Count (150-450) k/uL MPV Hypochromasia Poikilocytosis Sodium (137-145) mmol/L Potassium (3.5-5.1) mmol/L Chloride (98-107) mmol/L Carbon Dioxide (22-30) mmol/L Anion Gap mmol/L BUN (9-20) mg/dL Creatinine (0.66-1.25) mg/dL Est GFR (CKD-EPI)AfAm (>60 ml/min/1.73 sqM) Est GFR (CKD-EPI)NonAf (>60 ml/min/1.73 sqM) Glucose (74-99) mg/dL Lactic Ac Sepsis Rflx Y Plasma Lactic Acid Evgeny (0.7-2.0) mmol/L Calcium (8.4-10.2) mg/dL Total Bilirubin (0.2-1.3) mg/dL AST (17-59) U/L ALT (4-49) U/L Alkaline Phosphatase (38-126) U/L Total Protein (6.3-8.2) g/dL Albumin (3.5-5.0) g/dL Disposition Clinical Impression: Visit for wound check Disposition: HOME SELF-CARE Condition: Stable Additional Instructions: Please complete full course of antibiotics. Please follow-up with Dr. Quiroz. Return to ER for any new or worsening symptoms. Prescriptions: Sulfamethox-Tmp 800-160Mg [Bactrim Ds] 1 each PO Q12HR #20 tab Cephalexin [Keflex] 500 mg PO Q6HR 10 Days #40 cap Is patient prescribed a controlled substance at d/c from ED?: No Referrals: Nonstaff,Physician [REFERRING] - 1-2 days Julien Quiroz MD [STAFF PHYSICIAN] - 1-2 days Time of Disposition: 12:23
[2023-12-08 10:49] VITALS: TEMP 98
[2023-12-08 11:47] LABS: ALT 33 U/L (4-49); AST 35 U/L (17-59); African American GFR (CKD) >90 (>60 ml/min/1.73 sqM); Albumin 3.8 g/dL (3.5-5.0); Alkaline Phosphatase 140 U/L (38-126); Anion Gap 7 mmol/L; Blood Urea Nitrogen 16 mg/dL (9-20); Calcium 9.3 mg/dL (8.4-10.2); Carbon Dioxide 24 mmol/L (22-30); Chloride 110 mmol/L (98-107); Glucose 162 mg/dL (74-99); HCT 31.1 % (39.0-53.0); HGB 10.4 gm/dL (13.0-17.5); Hypochromasia Slight; MCH 33.2 pg (25.0-35.0); MCHC 33.5 g/dL (31.0-37.0); Mean Platelet Volume 7.8; Non-African American GFR(CKD) 89 (>60 ml/min/1.73 sqM); Platelet Count 130 k/uL (150-450); Poikilocytosis Slight; Potassium 4.6 mmol/L (3.5-5.1); RBC 3.14 m/uL (4.30-5.90); RDW 13.8 % (11.5-15.5); Sodium 141 mmol/L (137-145); Total Bilirubin 1.1 mg/dL (0.2-1.3); WBC 4.4 k/uL (3.8-10.6)
[2023-12-08 12:01] VITALS: BP 122/55; PULSE 66; RESP 16
== END 2023-12-08 12:38 | disposition home or self-care (01) ==
LOC: SUPCPDRO 10:26 → EC 10:26
DX: Z48.00 Encounter for change or removal of nonsurgical wound dressing (principal); I25.10 Atherosclerotic heart disease of native coronary artery without angina pectoris; I11.0 Hypertensive heart disease with heart failure; I50.9 Heart failure, unspecified; E11.9 Type 2 diabetes mellitus without complications; E78.5 Hyperlipidemia, unspecified; Z87.891 Personal history of nicotine dependence; Z79.82 Long term (current) use of aspirin; Z79.4 Long term (current) use of insulin; Z79.84 Long term (current) use of oral hypoglycemic drugs; Z79.899 Other long term (current) drug therapy
CPT/HCPCS: 36415; 80053; 83605; 85027; 87040; 99283

== ENCOUNTER 2024-02-17 11:31 | Emergency (ER) | payer MEDICARE ==
[2024-02-17 12:28] VITALS: BP 123/70; PULSE 62; RESP 18; TEMP 97.6
--- NOTE | 2024-02-17 12:29 | ED ---
Abdominal Pain HPI - General Chief Complaint: Abdominal Pain Stated Complaint: abd pain Time Seen by Provider: 02/17/24 12:28 Source: patient, RN notes reviewed Mode of arrival: ambulatory Limitations: no limitations - History of Present Illness Initial Comments: This is a 78-year-old male who presents to the emergency department for abdominal pain. States that he was eating Ensure, and about 30 minutes afterwards started developing pain in the mid abdomen and felt like he was going to vomit. Symptoms have since started to subside significantly. Denies any active nausea/vomiting. Also denies any changes in bowel/bladder habits. MD Complaint: abdominal pain - Related Data Home Medications Medication Instructions Recorded Confirmed metFORMIN HCL [Glucophage] 1,000 mg PO BID 06/07/14 12/08/23 Ferrous Sulfate [Iron (65 MG 325 mg PO DAILY 03/07/16 12/08/23 Elemental)] Magnesium Oxide [Mag-Ox] 250 mg PO DAILY 07/11/19 12/08/23 Nitroglycerin Sl Tabs [Nitrostat] 0.4 mg SL Q5M PRN 07/17/21 12/08/23 allopurinoL [Zyloprim] 100 mg PO DAILY 07/17/21 12/08/23 carvediloL [Coreg] 12.5 mg PO BID 11/27/21 12/08/23 Aspirin EC [Ecotrin Low Dose] 81 mg PO DAILY 02/10/22 12/08/23 lisinopriL [Zestril] 2.5 mg PO DAILY 02/10/22 12/08/23 Atorvastatin [Lipitor] 80 mg PO DAILY 03/07/22 12/08/23 Albuterol Inhaler [Ventolin Hfa 2 puff INHALATION RT-Q4H PRN 07/22/23 12/08/23 Inhaler] Insulin NPH Hum/Reg Insulin Hm 30 unit SQ 0800,1700 10/16/23 12/08/23 [NovoLIN 70-30 100 Unit/ml Vial] Previous Rx's Medication Instructions Recorded Acetaminophen Tab [Tylenol] 1,000 mg PO Q6HR PRN #30 tablet 12/02/23 Ibuprofen [Motrin] 600 mg PO Q8HR PRN #30 tab 12/02/23 oxyCODONE HCL [OxyIR] 5 mg PO Q6H PRN 3 Days #12 tab 12/02/23 Cephalexin [Keflex] 500 mg PO Q6HR 10 Days #40 cap 12/08/23 Sulfamethox-Tmp 800-160Mg [Bactrim 1 each PO Q12HR #20 tab 12/08/23 Ds] Allergies Allergy/AdvReac Type Severity Reaction Status Date / Time No Known Allergies Allergy Verified 02/17/24 12:21 Review of Systems ROS Statement: Those systems with pertinent positive or pertinent negative responses have been documented in the HPI. ROS Other: All systems not noted in ROS Statement are negative. Past Medical History Past Medical History: Blood Disorder, Coronary Artery Disease (CAD), Chest Pain / Angina, Heart Failure, COPD, Diabetes Mellitus, GERD/Reflux, Hyperlipidemia, Hypertension, Liver Disease, Myocardial Infarction (OK), Pneumonia, Supraventricular Tachycardia (SVT), Vascular Disorder Additional Past Medical History / Comment(s): Recent hospitalization for di verticulitis. Ischemic CMP, nonsustained ventriclar arrhythmia, systolic heart failure, [place] x 2 in 2001, 1994, thrombocytopenia, kidney stones, gout bilateral feet/ toes, hx bilat tinnitis, stomach ulcers 2020 Last Myocardial Infarction Date:: 2001 History of Any Multi-Drug Resistant Organisms: None Reported Past Surgical History: Cardiac Ablation, Cholecystectomy, Heart Catheterization, Heart Catheterization With Stent, Joint Replacement, Orthopedic Surgery Additional Past Surgical History / Comment(s): PCIs with total 6 stents per patient, cardiac ablation-AVRNT, EPS, R caratid stent, R knee arthroscopy, bilateral total knee replacements x2-L side became infected-had I&D, bilateral shoulder rotator cuff surgeries with R side done 3 times, L ankle surgery, bilateral carpal tunnel releases, colonoscopy. EGD lft shoulder x1 Past Anesthesia/Blood Transfusion Reactions: No Reported Reaction Additional Past Anesthesia/Blood Transfusion Reaction / Comment(s): never had a blood tranfusion Date of Last Stent Placement:: 02/05/19 Past Psychological History: No Psychological Hx Reported Smoking Status: Former smoker Past Alcohol Use History: Rare Past Drug Use History: None Reported - Past Family History Father History Unknown: Yes Additional Family Medical History / Comment(s): Pt does not know his father's history. His parents were when he was 6 yrs old. Mother History Unknown: Yes Family Medical History: Cancer Additional Family Medical History / Comment(s): Pt states mother had some form of cancer which she from at the age of 77yrs. General Exam Limitations: no limitations General appearance: alert, in no apparent distress Head exam: Present: atraumatic, normocephalic, normal inspection Respiratory exam: Present: normal lung sounds bilaterally. Absent: respiratory distress, wheezes, rales, rhonchi, stridor Cardiovascular Exam: Present: regular rate, normal rhythm, normal heart sounds. Absent: systolic murmur, diastolic murmur, rubs, gallop, clicks GI/Abdominal exam: Present: soft, normal bowel sounds. Absent: distended, tenderness, guarding, rebound, rigid Neurological exam: Present: alert, oriented X3, CN II-XII intact Psychiatric exam: Present: normal affect, normal mood Skin exam: Present: warm, dry, intact, normal color. Absent: rash Course Vital Signs 02/17/24 12:18 Temperature 97.6 F Pulse Rate 62 Respiratory 18 Rate Blood Pressure 123/70 O2 Sat by Pulse 100 Oximetry Medical Decision Making - Medical Decision Making This is a 78 year old male who presents to the emergency department for abdominal pain. Was pt. sent in by a medical professional or institution? @ -No Did you speak to anyone other than the patient for history? @ -No Did you review nursing and triage notes? @ -Yes, and I agree, it is accurate with regards to the patient's symptoms. Were old charts reviewed? @ -No Differential Diagnosis? @ -Differential Abdominal Pain Men: Appendicitis, cholecystitis, diverticulosis, ischemic bowel, pancreatitis, hepatitis, UTI, gastroenteritis, AAA, incarcerated hernia, bowel obstruction, constipation, inflammatory bowel, hepatitis, peptic ulcer disease, splenic infarction, perforated viscus, testicular torsion, this is not meant to be an all-inclusive list EKG interpreted by me (3pts min.)? @ -EKG interpreted by me demonstrating the following: Sinus rhythm. Vent ricular rate 74 bpm, MT interval 146 ms, QRS duration 81 ms, QTc 394 ms. X-rays interpreted by me (1pt min.)? @ -KUB x-ray obtained. My interpretation identifies no evidence of small bowel loop dilation. CT interpreted by me (1pt min.)? @ -Not obtained U/S interpreted by me (1pt. min.)? @ -Not obtained What testing was considered but not performed? (CT, X-rays, U/S, labs)? Why? @ -None What meds were considered but not given? Why? @ -None Did you discuss the management of the patient with other professionals? @ -No Did you reconcile home meds? @ -No Was smoking cessation discussed for >3mins.? @ -No Was critical care preformed (if so, how long)? @ -No Were there social determinants of health that impacted care today? How? (Homelessness, low income, unemployed, alcoholism, drug addiction, transportation, low edu. Level, literacy, decrease access to med. care, shelter, rehab)? @ -No Was there de-escalation of care discussed even if they declined? (Discuss DNR or withdrawal of care, Hospice)? @ -No What co-morbidities impacted this encounter? (DM, HTN, Smoking, COPD, CAD, Cancer, CVA, Hep., AIDS, mental health diagnosis, sleep apnea, morbid obesity)? @ -CAD, DM, HLD Was patient admitted / discharged? @ -Discharged. Lab work demonstrates leukopenia with a white blood cell count of 2.6. Platelets low at 71,000. Patient has had similar values before, but not as recent. Lipase elevated at 517. COVID, influenza, and RSV testing were negative. Urinalysis negative for signs of infection. KUB x-ray demonstrates a nonspecific bowel gas pattern without evidence for acute process. When I went to reevaluate the patient, he states that his pain had essentially resolved. Discussed with the patient that with the lipase elevation and decreased white blood cell count, we can proceed with further imaging. However, patient states that because he currently feels fine, he is comfortable with discharge home and will return if anything changes or worsens. Advised close follow-up with his primary care provider. Patient discharged home in stable condition. Undiagnosed new problem with uncertain prognosis? @ -None Drug Therapy requiring intensive monitoring for toxicity (Heparin, Nitro, Insulin, Cardizem)? @ -None Were any procedures done? @ -None Diagnosis/symptom? @ -Abdominal pain Acute, or Chronic, or Acute on Chronic? @ -Acute Uncomplicated (without systemic symptoms) or Complicated (systemic symptoms)? @ -Uncomplicated Side effects of treatment? @ -None Exacerbation, Progression, or Severe Exacerbation] @ -Not applicable Poses a threat to life or bodily function? @ -No Return precautions reviewed in depth, the patient is instructed to return to the emergency department with any new, worsening, or concerning symptoms. Patient verbalized understanding. This case was discussed in detail with the attending ED physician, Dr. Whitmore. Presentation, findings, and treatment plan discussed in detail as well. - Lab Data Result diagrams: 02/17/24 12:39 02/17/24 12:39 Lab Results 02/17/24 02/17/24 02/17/24 Range/Units 12:39 12:39 12:39 WBC 2.6 L (3.8-10.6) k/uL RBC 3.79 L (4.30-5.90) m/uL Hgb 11.9 L (13.0-17.5) gm/dL Hct 35.9 L (39.0-53.0) % MCV 94.6 (80.0-100.0) fL MCH 31.4 (25.0-35.0) pg MCHC 33.2 (31.0-37.0) g/dL RDW 13.8 (11.5-15.5) % Plt Count 71 L (150-450) k/uL MPV 8.2 Neutrophils % 68 % Lymphocytes % 21 % Monocytes % 6 % Eosinophils % 3 % Basophils % 1 % Neutrophils # 1.8 (1.3-7.7) k/uL Lymphocytes # 0.6 L (1.0-4.8) k/uL Monocytes # 0.2 (0-1.0) k/uL Eosinophils # 0.1 (0-0.7) k/uL Basophils # 0.0 (0-0.2) k/uL Manual Slide Review Performed Sodium 138 (137-145) mmol/L Potassium 4.7 (3.5-5.1) mmol/L Chloride 108 H (98-107) mmol/L Carbon Dioxide 21 L (22-30) mmol/L Anion Gap 9 mmol/L BUN 15 (9-20) mg/dL Creatinine 0.65 L (0.66-1.25) mg/dL Est GFR (CKD-EPI)AfAm >90 (>60 ml/min/1.73 sqM) Est GFR (CKD-EPI)NonAf >90 (>60 ml/min/1.73 sqM) Glucose 154 H (74-99) mg/dL Calcium 9.3 (8.4-10.2) mg/dL Total Bilirubin 0.9 (0.2-1.3) mg/dL AST 43 (17-59) U/L ALT 32 (4-49) U/L Alkaline Phosphatase 116 (38-126) U/L Total Protein 6.9 (6.3-8.2) g/dL Albumin 3.8 (3.5-5.0) g/dL Amylase 64 (30-110) U/L Lipase 517 H (23-300) U/L Urine Color Urine Appearance (Clear) Urine pH (5.0-8.0) Ur Specific [place] (1.001-1.035) Urine Protein (Negative) Urine Glucose (UA) (Negative) Urine Ketones (Negative) Urine Blood (Negative) Urine Nitrite (Negative) Urine Bilirubin (Negative) Urine Urobilinogen (<2.0) mg/dL Ur Leukocyte Esterase (Negative) Influenza Type A (PCR) Not Detected (Not Detectd) Influenza Type B (PCR) Not Detected (Not Detectd) RSV (PCR) Not Detected (Not Detectd) SARS-CoV-2 (PCR) Not Detected (Not Detectd) 02/17/24 Range/Units 14:10 WBC (3.8-10.6) k/uL RBC (4.30-5.90) m/uL Hgb (13.0-17.5) gm/dL Hct (39.0-53.0) % MCV (80.0-100.0) fL MCH (25.0-35.0) pg MCHC (31.0-37.0) g/dL RDW (11.5-15.5) % Plt Count (150-450) k/uL MPV Neutrophils % % Lymphocytes % % Monocytes % % Eosinophils % % Basophils % % Neutrophils # (1.3-7.7) k/uL Lymphocytes # (1.0-4.8) k/uL Monocytes # (0-1.0) k/uL Eosinophils # (0-0.7) k/uL Basophils # (0-0.2) k/uL Manual Slide Review Sodium (137-145) mmol/L Potassium (3.5-5.1) mmol/L Chloride (98-107) mmol/L Carbon Dioxide (22-30) mmol/L Anion Gap mmol/L BUN (9-20) mg/dL Creatinine (0.66-1.25) mg/dL Est GFR (CKD-EPI)AfAm (>60 ml/min/1.73 sqM) Est GFR (CKD-EPI)NonAf (>60 ml/min/1.73 sqM) Glucose (74-99) mg/dL Calcium (8.4-10.2) mg/dL Total Bilirubin (0.2-1.3) mg/dL AST (17-59) U/L ALT (4-49) U/L Alkaline Phosphatase (38-126) U/L Total Protein (6.3-8.2) g/dL Albumin (3.5-5.0) g/dL Amylase (30-110) U/L Lipase (23-300) U/L Urine Color Light Yellow Urine Appearance Clear (Clear) Urine pH 5.5 (5.0-8.0) Ur Specific [place] 1.021 (1.001-1.035) Urine Protein Negative (Negative) Urine Glucose (UA) Negative (Negative) Urine Ketones Negative (Negative) Urine Blood Negative (Negative) Urine Nitrite Negative (Negative) Urine Bilirubin Negative (Negative) Urine Urobilinogen <2.0 (<2.0) mg/dL Ur Leukocyte Esterase Negative (Negative) Influenza Type A (PCR) (Not Detectd) Influenza Type B (PCR) (Not Detectd) RSV (PCR) (Not Detectd) SARS-CoV-2 (PCR) (Not Detectd) - Radiology Data Radiology results: report reviewed, image reviewed Disposition Clinical Impression: Abdominal pain Disposition: HOME SELF-CARE Instructions (If sedation given, give patient instructions): Abdominal Pain (ED) Additional Instructions: Return to the emergency department with any new, worsening, or concerning symptoms. Try to eat blander foods for the rest of the day. Follow up with your primary care provider in 1-2 days. Is patient prescribed a controlled substance at d/c from ED?: No Referrals: None,Stated [REFERRING] - 1-2 days Time of Disposition: 14:51
[2024-02-17 12:59] LABS: ALT 32 U/L (4-49); AST 43 U/L (17-59); African American GFR (CKD) >90 (>60 ml/min/1.73 sqM); Albumin 3.8 g/dL (3.5-5.0); Alkaline Phosphatase 116 U/L (38-126); Amylase 64 U/L (30-110); Anion Gap 9 mmol/L; Blood Urea Nitrogen 15 mg/dL (9-20); Calcium 9.3 mg/dL (8.4-10.2); Carbon Dioxide 21 mmol/L (22-30); Chloride 108 mmol/L (98-107); Glucose 154 mg/dL (74-99); Lipase 517 U/L (23-300); Non-African American GFR(CKD) >90 (>60 ml/min/1.73 sqM); Potassium 4.7 mmol/L (3.5-5.1); Sodium 138 mmol/L (137-145); Total Bilirubin 0.9 mg/dL (0.2-1.3); Total Protein 6.9 g/dL (6.3-8.2)
--- NOTE | 2024-02-17 13:02 | XR ---
EXAMINATION TYPE: XR [facility] DATE OF EXAM: 02/17/2024 12:47 PM CLINICAL INDICATION:Male, 78 years old with history of abdominal pain; H COMPARISON: None. TECHNIQUE: One radiographic view of the abdomen was obtained. FINDINGS: The bowel gas pattern is nonspecific without dilated loops of small or large bowel. There i s no evidence for organomegaly or pneumoperitoneum. The osseous structures are intact. No abnormal calcifications are present. Fecal material and gas are demonstrated throughout the colon and rectum. IMPRESSION: Nonspecific bowel gas pattern without radiographic evidence for acute process.
[2024-02-17 13:05] LABS: Basophils % (A) 1 %; Eosinophils # (A) 0.1 k/uL (0-0.7); Eosinophils % (A) 3 %; HCT 35.9 % (39.0-53.0); HGB 11.9 gm/dL (13.0-17.5); Lymphocytes # (A) 0.6 k/uL (1.0-4.8); Lymphocytes % (A) 21 %; MCH 31.4 pg (25.0-35.0); MCHC 33.2 g/dL (31.0-37.0); MCV 94.6 fL (80.0-100.0); Mean Platelet Volume 8.2; Monocytes # (A) 0.2 k/uL (0-1.0); Monocytes % (A) 6 %; Neutrophils # (A) 1.8 k/uL (1.3-7.7); Neutrophils % (A) 68 %; RBC 3.79 m/uL (4.30-5.90); RDW 13.8 % (11.5-15.5); WBC 2.6 k/uL (3.8-10.6)
[2024-02-17 13:22] LABS: Platelet Count 71 k/uL (150-450)
[2024-02-17 14:31] LABS: Appearance,Urine Clear (Clear); Bilirubin,Urine Negative (Negative); Blood,Urine Negative (Negative); Color,Urine Light Yellow; Glucose,Urine (UA) Negative (Negative); Ketones,Urine Negative (Negative); Leukocyte Esterase,Urine Negative (Negative); Nitrite,Urine Negative (Negative); PH, Urine 5.5 (5.0-8.0); Protein,Urine Negative (Negative); Specific Gravity,Urine 1.021 (1.001-1.035); Urobilinogen,Urine <2.0 mg/dL (<2.0)
== END 2024-02-17 15:08 | disposition home or self-care (01) ==
LOC: SUPCPDRO 11:31 → EC 11:31
DX: R10.9 Unspecified abdominal pain (principal); Z87.891 Personal history of nicotine dependence; Z90.49 Acquired absence of other specified parts of digestive tract
CPT/HCPCS: 36415; 74018; 80053; 81003; 82150; 83690; 85025; 87636; 93005; 99284

== ENCOUNTER 2024-02-25 22:54 | Emergency (ER) | payer MEDICARE ==
[2024-02-25 23:10] VITALS: RESP 16
--- NOTE | 2024-02-25 23:15 | ED ---
Abdominal Pain HPI - General Chief Complaint: Abdominal Pain Stated Complaint: ABD Pain Time Seen by Provider: 02/25/24 23:00 Source: patient, EMS Mode of arrival: EMS Limitations: no limitations - History of Present Illness Initial Comments: 78-year-old male with a past medical history significant for diverticulitis status post low anterior resection, takedown splenic flexure, omentectomy and repair of incisional hernia which was performed on 11/26/2023 presenting to the ED with complaints of abdominal pain. Patient was seen here approximately 1 mo nth ago and at that time noted some abdominal pain and some nausea after eating which eventually resolved. Today, reports over the past 4 days has had some pain of his left lower abdomen with some associated nonbloody diarrhea, nausea, and one episode of nonbloody emesis. Reports vomiting is now resolved however still reports she feels somewhat nauseous. States his last regular bowel movement was 4 days ago. No fever or chills. No chest pain or shortness of breath. No other complaints at this time. - Related Data Home Medications Medication Instructions Recorded Confirmed metFORMIN HCL [Glucophage] 1,000 mg PO BID 06/07/14 12/08/23 Ferrous Sulfate [Iron (65 MG 325 mg PO DAILY 03/07/16 12/08/23 Elemental)] Magnesium Oxide [Mag-Ox] 250 mg PO DAILY 07/11/19 12/08/23 Nitroglycerin Sl Tabs [Nitrostat] 0.4 mg SL Q5M PRN 07/17/21 12/08/23 allopurinoL [Zyloprim] 100 mg PO DAILY 07/17/21 12/08/23 carvediloL [Coreg] 12.5 mg PO BID 11/27/21 12/08/23 Aspirin EC [Ecotrin Low Dose] 81 mg PO DAILY 02/10/22 12/08/23 lisinopriL [Zestril] 2.5 mg PO DAILY 02/10/22 12/08/23 Atorvastatin [Lipitor] 80 mg PO DAILY 03/07/22 12/08/23 Albuterol Inhaler [Ventolin Hfa 2 puff INHALATION RT-Q4H PRN 07/22/23 12/08/23 Inhaler] Insulin NPH Hum/Reg Insulin Hm 30 unit SQ 0800,1700 10/16/23 12/08/23 [NovoLIN 70-30 100 Unit/ml Vial] Previous Rx's Medication Instructions Recorded Acetaminophen Tab [Tylenol] 1,000 mg PO Q6HR PRN #30 tablet 12/02/23 Ibuprofen [Motrin] 600 mg PO Q8HR PRN #30 tab 12/02/23 oxyCODONE HCL [OxyIR] 5 mg PO Q6H PRN 3 Days #12 tab 12/02/23 Cephalexin [Keflex] 500 mg PO Q6HR 10 Days #40 cap 12/08/23 Sulfamethox-Tmp 800-160Mg [Bactrim 1 each PO Q12HR #20 tab 12/08/23 Ds] Acetaminophen Tab [Tylenol] 500 mg PO Q6H PRN #40 tablet 02/26/24 Amoxic-Pot Clav 875-125Mg 1 tab PO Q12HR 7 Days #14 tab 02/26/24 [Augmentin 875-125] Ondansetron Odt [Zofran Odt] 4 mg PO Q8HR PRN #10 tab 02/26/24 Allergies Allergy/AdvReac Type Severity Reaction Status Date / Time No Known Allergies Allergy Verified 02/17/24 12:21 Review of Systems ROS Statement: Those systems with pertinent positive or pertinent negative responses have been documented in the HPI. ROS Other: All systems not noted in ROS Statement are negative. Past Medical History Past Medical History: Blood Disorder, Coronary Artery Disease (CAD), Chest Pain / Angina, Heart Failure, COPD, Diabetes Mellitus, GERD/Reflux, Hyperlipidemia, Hypertension, Liver Disease, Myocardial Infarction (IA), Pneumonia, Supraventricular Tachycardia (SVT), Vascular Disorder Additional Past Medical History / Comment(s): Recent hospitalization for diverticulitis. Ischemic CMP, nonsustained ventriclar arrhythmia, systolic heart failure, IA x 2 in 2001, 1994, thrombocytopenia, kidney stones, gout bilateral feet/ toes, hx bilat tinnitis, stomach ulcers 2020 Last Myocardial Infarction Date:: 2001 History of Any Multi-Drug Resistant Organisms: None Reported Past Surgical History: Cardiac Ablation, Cholecystectomy, Heart Catheterization, Heart Catheterization With Stent, Joint Replacement, Orthopedic Surgery Additional Past Surgical History / Comment(s): PCIs with total 6 stents per patient, cardiac ablation-AVRNT, EPS, R caratid stent, R knee arthroscopy, bilateral total knee replacements x2-L side became infected-had I&D, bilateral shoulder rotator cuff surgeries with R side done 3 times, L ankle surgery, bilateral carpal tunnel releases, colonoscopy. EGD lft shoulder x1 Past Anesthesia/Blood Transfusion Reactions: No Reported Reaction Additional Past Anesthesia/Blood Transfusion Reaction / Comment(s): never had a blood tranfusion Date of Last Stent Placement:: 02/05/19 Past Psychological History: No Psychological Hx Reported Smoking Status: Former smoker Past Alcohol Use History: Rare Past Drug Use History: None Reported - Past Family History Father History Unknown: Yes Additional Family Medical History / Comment(s): Pt does not know his father's history. His parents were when he was 6 yrs old. Mother History Unknown: Yes Family Medical History: Cancer Additional Family Medical History / Comment(s): Pt states mother had some form of cancer which she from at the age of 77yrs. General Exam Limitations: no limitations General appearance: alert, in no apparent distress Eye exam: Present: normal appearance Neck exam: Present: normal inspection Respiratory exam: Present: normal lung sounds bilaterally Cardiovascular Exam: Present: regular rate GI/Abdominal exam: Present: soft (No significant tenderness to palpation. No rebound guarding or rigidity.) Neurological exam: Present: alert, oriented X3 Skin exam: Present: warm, dry Course Vital Signs 02/25/24 02/26/24 02/26/24 22:58 00:50 01:40 Temperature 100.1 F H Pulse Rate 96 85 78 Respiratory 16 16 16 Rate Blood Pressure 120/65 115/55 138/62 O2 Sat by Pulse 95 95 96 Oximetry 02/26/24 02/26/24 02:50 02:51 Temperature 98.6 F Pulse Rate 74 Respiratory 16 Rate Blood Pressure 117/50 O2 Sat by Pulse 100 Oximetry Medical Decision Making - Medical Decision Making Was pt. sent in by a medical professional or institution (, PA, WORKERS COMPENSATION ANALYST, urgent care, hospital, or fci...) When possible be specific @ -No Did you speak to anyone other than the patient for history (EMS, parent, family, police, friend...)? What history was obtained from this source @ -No Did you review nursing and triage notes (agree or disagree)? Why? @ -I reviewed and agree with nursing and triage notes Were old charts reviewed (outside hosp., previous admission, EMS record, old EKG, old radiological studies, urgent care reports/EKG's, fci records)? Report findings @ -No old charts were reviewed Differential Diagnosis (chest pain, altered mental status, abdominal pain women, abdominal pain men, vaginal bleeding, weakness, fever, dyspnea, syncope, headache, dizziness, GI bleed, back pain, seizure, CVA, palpatations, mental health, musculoskeletal)? @ -Differential Abdominal Pain Men: Appendicitis, cholecystitis, diverticulosis, ischemic bowel, pancreatitis, hepatitis, UTI, gastroenteritis, AAA, incarcerated hernia, bowel obstruction, constipation, inflammatory bowel, hepatitis, peptic ulcer disease, splenic infarction, perforated viscus, testicular torsion, this is not meant to be an all-inclusive list EKG interpreted by me (3pts min.). @ -None X-rays interpreted by me (1pt min.). @ -None done CT interpreted by me (1pt min.). @ -CT abdomen pelvis interpreted by me with findings significant for fat stranding in the left lower quadrant/pelvis around the distal colon possibly reflecting colitis. No free air. U/S interpreted by me (1pt. min.). @ -None done What testing was considered but not performed or refused? (CT, X-rays, U/S, labs)? Why? @ -None What meds were considered but not given or refused? Why? @ -None Did you discuss the management of the patient with other professionals (professionals i.e. , PA, WORKERS COMPENSATION ANALYST, lab, RT, psych nurse, social security assessor, plumber assistant, teacher, upscale security officer, caseworker)? Give summary @ -No Was smoking cessation discussed for >3mins.? @ -No Was critical care preformed (if so, how long)? @ -No Were there social determinants of health that impacted care today? How? (Homelessness, low income, unemployed, alcoholism, drug addiction, transportation, low edu. Level, literacy, decrease access to med. care, snf, rehab)? @ -No Was there de-escalation of care discussed even if they declined (Discuss DNR or withdrawal of care, Hospice)? DNR status @ -No What co-morbidities impacted this encounter? (DM, HTN, Smoking, COPD, CAD, Cancer, CVA, ARF, Chemo, Hep., AIDS, mental health diagnosis, sleep apnea, morbid obesity)? @ -None Was patient admitted / discharged? Hospital course, mention meds given and route, prescriptions, significant lab abnormalities, going to OR and other pertinent info. @ -Discharge 78-year-old male with past medical history significant for diverticulitis presenting to the ED with complaints of left lower abdominal pain with some associated diarrhea and nausea. Laboratory studies reviewed. Labs including CBC and CMP largely unremarkable. Serology panel negative. Patient unable to provide us a urine sample at this time. CT abdomen pelvis was significant for fat stranding in the left lower quadrant possibly reflecting a colitis. Patient discharged home in stable condition with a starter pack and prescription for Augmentin. Discussed strict return precautions with patient who verbalized agreement. At discharge vital signs stable afebrile. Undiagnosed new problem with uncertain prognosis? @ -No Drug Therapy requiring intensive monitoring for toxicity (Heparin, Nitro, Insulin, Cardizem)? @ -No Were any procedures done? @ -No Diagnosis/symptom? @ -Colitis Acute, or Chronic, or Acute on Chronic? @ -Acute Uncomplicated (without systemic symptoms) or Complicated (systemic symptoms)? @ -Uncomplicated Side effects of treatment? @ -No Exacerbation, Progression, or Severe Exacerbation? @ -No Poses a threat to life or bodily function? How? (Chest pain, USA, IA, pneumonia, PE, COPD, DKA, ARF, appy, cholecystitis, CVA, Diverticulitis, Homicidal, Suicidal, threat to staff... and all critical care pts) @ -Unlikely - Lab Data Result diagrams: 02/25/24 23:35 02/26/24 00:40 Lab Results 02/25/24 02/25/24 02/26/24 Range/Units 23:35 23:35 00:40 WBC 6.9 (3.8-10.6) k/uL RBC 4.26 L (4.30-5.90) m/uL Hgb 12.9 L (13.0-17.5) gm/dL Hct 40.8 (39.0-53.0) % MCV 95.9 (80.0-100.0) fL MCH 30.3 (25.0-35.0) pg MCHC 31.6 (31.0-37.0) g/dL RDW 14.4 (11.5-15.5) % Plt Count 71 L (150-450) k/uL MPV 9.7 Neutrophils % 86 % Lymphocytes % 6 % Monocytes % 6 % Eosinophils % 1 % Basophils % 0 % Neutrophils # 6.0 (1.3-7.7) k/uL Lymphocytes # 0.4 L (1.0-4.8) k/uL Monocytes # 0.4 (0-1.0) k/uL Eosinophils # 0.0 (0-0.7) k/uL Basophils # 0.0 (0-0.2) k/uL Hypochromasia Slight Sodium 135 L (137-145) mmol/L Potassium 4.8 (3.5-5.1) mmol/L Chloride 111 H (98-107) mmol/L Carbon Dioxide 11 L (22-30) mmol/L Anion Gap 13 mmol/L BUN 36 H (9-20) mg/dL Creatinine 1.11 (0.66-1.25) mg/dL Est GFR (CKD-EPI)AfAm 74 (>60 ml/min/1.73 sqM) Est GFR (CKD-EPI)NonAf 64 (>60 ml/min/1.73 sqM) Glucose 185 H (74-99) mg/dL Calcium 7.9 L (8.4-10.2) mg/dL Total Bilirubin 2.4 H (0.2-1.3) mg/dL AST 65 H (17-59) U/L ALT 41 (4-49) U/L Alkaline Phosphatase 65 (38-126) U/L Total Protein 7.4 (6.3-8.2) g/dL Albumin 4.0 (3.5-5.0) g/dL Amylase 46 (30-110) U/L Lipase 51 (23-300) U/L Influenza Type A (PCR) Not Detected (Not Detectd) Influenza Type B (PCR) Not Detected (Not Detectd) RSV (PCR) Not Detected (Not Detectd) SARS-CoV-2 (PCR) Not Detected (Not Detectd) Disposition Clinical Impression: Colitis Disposition: HOME SELF-CARE Condition: Good Instructions (If sedation given, give patient instructions): Colitis (ED) Additional Instructions: Please return to the Emergency Department if symptoms worsen or any other concerns. Please follow-up with your primary care provider. Prescriptions: Amoxic-Pot Clav 875-125Mg [Augmentin 875-125] 1 tab PO Q12HR 7 Days #14 tab Acetaminophen Tab [Tylenol] 500 mg PO Q6H PRN #40 tablet PRN Reason: Pain Ondansetron Odt [Zofran Odt] 4 mg PO Q8HR PRN #10 tab PRN Reason: Nausea Is patient prescribed a controlled substance at d/c from ED?: No Referrals: Carrie Bains MD [Primary Care Provider] - 1-2 days Time of Disposition: 04:08
[2024-02-25] MEDS: KETOROLAC 15 MG/ML 1 ML VIAL IVP STA (23:36)
[2024-02-25] MEDS: ONDANSETRON ODT 8 MG TAB.RAPDIS PO STA (23:37)
[2024-02-25] MEDS: SODIUM CHLORIDE 0.9% 1,000 ML IV STA (23:40)
[2024-02-26 00:30] LABS: Basophils % (A) 0 %; Eosinophils % (A) 1 %; HCT 40.8 % (39.0-53.0); HGB 12.9 gm/dL (13.0-17.5); Hypochromasia Slight; Lymphocytes # (A) 0.4 k/uL (1.0-4.8); Lymphocytes % (A) 6 %; MCH 30.3 pg (25.0-35.0); MCHC 31.6 g/dL (31.0-37.0); MCV 95.9 fL (80.0-100.0); Mean Platelet Volume 9.7; Monocytes # (A) 0.4 k/uL (0-1.0); Monocytes % (A) 6 %; Neutrophils % (A) 86 %; RBC 4.26 m/uL (4.30-5.90); RDW 14.4 % (11.5-15.5); WBC 6.9 k/uL (3.8-10.6)
[2024-02-26 00:36] LABS: Platelet Count 71 k/uL (150-450)
[2024-02-26 01:41] LABS: ALT 41 U/L (4-49); AST 65 U/L (17-59); African American GFR (CKD) 74 (>60 ml/min/1.73 sqM); Alkaline Phosphatase 65 U/L (38-126); Amylase 46 U/L (30-110); Anion Gap 13 mmol/L; Blood Urea Nitrogen 36 mg/dL (9-20); Calcium 7.9 mg/dL (8.4-10.2); Carbon Dioxide 11 mmol/L (22-30); Chloride 111 mmol/L (98-107); Glucose 185 mg/dL (74-99); Lipase 51 U/L (23-300); Non-African American GFR(CKD) 64 (>60 ml/min/1.73 sqM); Sodium 135 mmol/L (137-145); Total Bilirubin 2.4 mg/dL (0.2-1.3); Total Protein 7.4 g/dL (6.3-8.2)
[2024-02-26 01:51] LABS: Potassium 4.8 mmol/L (3.5-5.1)
[2024-02-26] MEDS: METOCLOPRAMIDE 5 MG/ML 2 ML VIAL IVP STA (01:53)
[2024-02-26] MEDS: ACETAMINOPHEN TAB 500 MG TAB PO STA (01:54)
[2024-02-26] MEDS: MORPHINE SULFATE 2 MG/ML SYRINGE IVP STA ×2 (03:01→04:15)
--- NOTE | 2024-02-26 03:54 | CT ---
EXAM: CT Abdomen and Pelvis With Intravenous Contrast CLINICAL HISTORY: ITS.REASON CT Reason: LLQ pain diarrhea hx diverticulitis TECHNIQUE: Axial computed tomography images of the abdomen and pelvis with intravenous contrast. CTDI is 40.4 mGy and DLP is 1866.6 mGy-cm. This CT exam was performed using one or more of the following dose reduction techniques: automated exposure control, adjustment of the mA and/or kV according to patient size, and/or use of iterative reconstruction technique. COMPARISON: CT Abdomen Pelvis dated 07/21/23 FINDINGS: Lung bases: Unremarkable. No mass. No consolidation. Heart: Coronary calcifications. ABDOMEN: Liver: Nodular cirrhotic liver as on the prior. Gallbladder and bile ducts: Cholecystectomy. No ductal dilation. Pancreas: Unremarkable. No mass. No ductal dilation. Spleen: Stable splenomegaly. Adrenals: Unremarkable. No mass. Kidneys and ureters: Stable small left renal low-density lesion/cyst. No hydronephrosis. Nonobstructing tiny right renal calculus. Stomach and bowel: Sigmoid sutures/partial distal colonic resection new since the prior. Mild fat stranding in the left lower quadrant/pelvis around the distal colon. There is fluid throughout the colon suggesting diarrhea. Intraluminal contents versus pneumatosis of the cecum. No obstruction. No mucosal thickening. PELVIS: Appendix: No findings to suggest acute appendicitis. Bladder: Unremarkable. No mass. Reproductive: Unremarkable as visualized. ABDOMEN and PELVIS: Intraperitoneal space: Unremarkable. No free air. No significant fluid collection. Bones/joints: No acute fracture. No dislocation. Soft tissues: Interval postoperative changes of the midline abdominal and pelvic wall. Fat-containing bilateral inguinal hernias containing fat. Vasculature: Atherosclerotic calcifications of the ectatic abdominal aorta and branches. No abdominal aortic aneurysm. Lymph nodes: Unremarkable. No enlarged lymph nodes. IMPRESSION: 1. Sigmoid sutures/partial distal colonic resection new since the prior. 2. There is fluid throughout colon suggesting diarrhea. 3. Mild fat stranding in the left lower quadrant/pelvis around the distal colon. May reflect recent postoperative changes, colitis. No free air. 4. Intraluminal contents versus pneumatosis of the cecum. 5. Cirrhosis. Splenomegaly.
[2024-02-26] MEDS: AMOXIC-POT CLAV 875MG STARTER PACK 2 TAB BTL PO STA (04:14)
[2024-02-26 04:24] VITALS: BP 125/60; PULSE 66; TEMP 98.7
== END 2024-02-26 04:24 | disposition home or self-care (01) ==
LOC: EC 22:54
DX: K52.9 Noninfective gastroenteritis and colitis, unspecified (principal); Z90.49 Acquired absence of other specified parts of digestive tract; Z87.891 Personal history of nicotine dependence
CPT/HCPCS: 36415 ×2; 80053; 82150; 83690; 85025; 87636; 74177; 99285; 96374; 96375 ×2; 96376; 96361; J2765; J2270; J1885; Q9967

== ENCOUNTER 2024-02-28 13:36 | Inpatient (IN) | payer MEDICARE ==
--- NOTE | 2024-02-28 14:22 | ED ---
Abdominal Pain HPI - General Chief Complaint: Abdominal Pain Stated Complaint: Abd Pain Time Seen by Provider: 02/28/24 13:49 Source: patient, EMS, RN notes reviewed, old records reviewed Mode of arrival: EMS Limitations: no limitations - History of Present Illness Initial Comments: 78-year-old male presents emergency department complaint abdominal pain, nausea vomiting. Patient states that he had surgery at the end of the year for diverticulitis with colon resection. Patient states that he is doing well the last few months he has had increasing abdominal pain, recurrent nausea vomiting states he has an appointment on with his surgeon but states that symptoms have become more frequent and worsening and cannot wait for his appointment. Patient denies any fevers or chills no chest pain he states he has upper abdominal pain and pressure. Patient states she has had chronic diarrhea. - Related Data Home Medications Medication Instructions Recorded Confirmed metFORMIN HCL [Glucophage] 1,000 mg PO BID 06/07/14 12/08/23 Ferrous Sulfate [Iron (65 MG 325 mg PO DAILY 03/07/16 12/08/23 Elemental)] Magnesium Oxide [Mag-Ox] 250 mg PO DAILY 07/11/19 12/08/23 Nitroglycerin Sl Tabs [Nitrostat] 0.4 mg SL Q5M PRN 07/17/21 12/08/23 allopurinoL [Zyloprim] 100 mg PO DAILY 07/17/21 12/08/23 carvediloL [Coreg] 12.5 mg PO BID 11/27/21 12/08/23 Aspirin EC [Ecotrin Low Dose] 81 mg PO DAILY 02/10/22 12/08/23 lisinopriL [Zestril] 2.5 mg PO DAILY 02/10/22 12/08/23 Atorvastatin [Lipitor] 80 mg PO DAILY 03/07/22 12/08/23 Albuterol Inhaler [Ventolin Hfa 2 puff INHALATION RT-Q4H PRN 07/22/23 12/08/23 Inhaler] Insulin NPH Hum/Reg Insulin Hm 30 unit SQ 0800,1700 10/16/23 12/08/23 [NovoLIN 70-30 100 Unit/ml Vial] Previous Rx's Medication Instructions Recorded Acetaminophen Tab [Tylenol] 1,000 mg PO Q6HR PRN #30 tablet 12/02/23 Ibuprofen [Motrin] 600 mg PO Q8HR PRN #30 tab 12/02/23 oxyCODONE HCL [OxyIR] 5 mg PO Q6H PRN 3 Days #12 tab 12/02/23 Cephalexin [Keflex] 500 mg PO Q6HR 10 Days #40 cap 12/08/23 Sulfamethox-Tmp 800-160Mg [Bactrim 1 each PO Q12HR #20 tab 12/08/23 Ds] Acetaminophen Tab [Tylenol] 500 mg PO Q6H PRN #40 tablet 02/26/24 Amoxic-Pot Clav 875-125Mg 1 tab PO Q12HR 7 Days #14 tab 02/26/24 [Augmentin 875-125] Ondansetron Odt [Zofran Odt] 4 mg PO Q8HR PRN #10 tab 02/26/24 Allergies Allergy/AdvReac Type Severity Reaction Status Date / Time No Known Allergies Allergy Verified 02/28/24 13:48 Review of Systems ROS Statement: Those systems with pertinent positive or pertinent negative responses have been documented in the HPI. ROS Other: All systems not noted in ROS Statement are negative. Past Medical History Past Medical History: Blood Disorder, Coronary Artery Disease (CAD), Chest Pain / Angina, Heart Failure, COPD, Diabetes Mellitus, GERD/Reflux, Hyperlipidemia, Hypertension, Liver Disease, Myocardial Infarction (TX), Pneumonia, Supraventricular Tachycardia (SVT), Vascular Disorder Additional Past Medical History / Comment(s): Recent hospitalization for diverticulitis. Ischemic CMP, nonsustained ventriclar arrhythmia, systolic heart failure, TX x 2 in 2001, 1994, thrombocytopenia, kidney stones, gout bilateral feet/ toes, hx bilat tinnitis, stomach ulcers 2020 Last Myocardial Infarction Date:: 2001 History of Any Multi-Drug Resistant Organisms: None Reported Past Surgical History: Cardiac Ablation, Cholecystectomy, Heart Catheterization, Heart Catheterization With Stent, Joint Replacement, Orthopedic Surgery Additional Past Surgical History / Comment(s): PCIs with total 6 stents per patient, cardiac ablation-AVRNT, EPS, R caratid stent, R knee arthroscopy, bilateral total knee replacements x2-L side became infected-had I&D, bilateral shoulder rotator cuff surgeries with R side done 3 times, L ankle surgery, bilateral carpal tunnel releases, colonoscopy. EGD lft shoulder x1 Past Anesthesia/Blood Transfusion Reactions: No Reported Reaction Additional Past Anesthesia/Blood Transfusion Reaction / Comment(s): never had a blood tranfusion Date of Last Stent Placement:: 02/05/19 Past Psychological History: No Psychological Hx Reported Smoking Status: Former smoker Past Alcohol Use History: Rare Past Drug Use History: None Reported - Past Family History Father History Unknown: Yes Additional Family Medical History / Comment(s): Pt does not know his father's history. His parents were when he was 6 yrs old. Mother History Unknown: Yes Family Medical History: Cancer Additional Family Medical History / Comment(s): Pt states mother had some form of cancer which she from at the age of 77yrs. General Exam Limitations: no limitations General appearance: alert, in no apparent distress Head exam: Present: atraumatic, normocephalic, normal inspection Eye exam: Present: normal appearance, PERRL, EOMI. Absent: scleral icterus, conjunctival injection, periorbital swelling ENT exam: Present: normal exam, normal oropharynx, mucous membranes moist Neck exam: Present: normal inspection, full ROM. Absent: tenderness, meningismus, lymphadenopathy Respiratory exam: Present: normal lung sounds bilaterally. Absent: respiratory distress, wheezes, rales, rhonchi, stridor Cardiovascular Exam: Present: regular rate, normal rhythm, normal heart sounds. Absent: systolic murmur, diastolic murmur, rubs, gallop, clicks GI/Abdominal exam: Present: soft, tenderness, normal bowel sounds. Absent: distended, guarding, rebound, rigid Back exam: Absent: CVA tenderness (R), CVA tenderness (L) Neurological exam: Present: alert Skin exam: Present: warm, dry, intact, normal color. Absent: rash Course Vital Signs 02/28/24 02/28/24 02/28/24 13:44 14:04 15:18 Temperature 98.5 F 98.2 F Pulse Rate 82 82 77 Respiratory 20 20 19 Rate Blood Pressure 110/73 113/71 95/50 O2 Sat by Pulse 100 99 98 Oximetry 02/28/24 16:15 Temperature 98.2 F Pulse Rate 71 Respiratory 17 Rate Blood Pressure 95/56 O2 Sat by Pulse 100 Oximetry Medical Decision Making - Medical Decision Making Was pt. sent in by a medical professional or institution (, PA, ODD PIECE CHECKER, urgent care, hospital, or senior care...) When possible be specific @ -No Did you speak to anyone other than the patient for history (EMS, parent, family, police, friend...)? What history was obtained from this source @ -No Did you review nursing and triage notes (agree or disagree)? Why? @ -I reviewed and agree with nursing and triage notes Were old charts reviewed (outside hosp., previous admission, EMS record, old EKG, old radiological studies, urgent care reports/EKG's, senior care records)? Report findings @ -[N had recent laboratory studies, CT Differential Diagnosis (chest pain, altered mental status, abdominal pain women, abdominal pain men, vaginal bleeding, weakness, fever, dyspnea, syncope, headache, dizziness, GI bleed, back pain, seizure, CVA, palpatations, mental health, musculoskeletal)? @ -Differential Abdominal Pain Men: Appendicitis, cholecystitis, diverticulosis, ischemic bowel, pancreatitis, hepatitis, UTI, gastroenteritis, AAA, incarcerated hernia, bowel obstruction, constipation, inflammatory bowel, hepatitis, peptic ulcer disease, splenic infarction, perforated viscus, testicular torsion, this is not meant to be an all-inclusive list EKG interpreted by me (3pts min.). @ -None X-rays interpreted by me (1pt min.). @ -X-ray KUB showing no acute process CT interpreted by me (1pt min.). @ -[None done U/S interpreted by me (1pt. min.). @ -None done What testing was considered but not performed or refused? (CT, X-rays, U/S, labs)? Why? @ -None What meds were considered but not given or refused? Why? @ -None Did you discuss the management of the patient with other professionals (professionals i.e. , PA, ODD PIECE CHECKER, lab, RT, psych nurse, social media community manager, day care provider, teacher, correctional officer captain, case supervisor)? Give summary @ -I did discuss the case with Dr. Groves who accepts admission requests that on-call surgeon be contacted. On-call surgeon Dr. Tubbs was contacted in which he currently is in the OR messages left to have patient evaluated regarding diverticulitis, prior resection and worsening symptoms Was smoking cessation discussed for >3mins.? @ -No Was critical care preformed (if so, how long)? @ -No Were there social determinants of health that impacted care today? How? (Homelessness, low income, unemployed, alcoholism, drug addiction, transportation, low edu. Level, literacy, decrease access to med. care, retirement, rehab)? @ -No Was there de-escalation of care discussed even if they declined (Discuss DNR or withdrawal of care, Hospice)? DNR status @ -No What co-morbidities impacted this encounter? (DM, HTN, Smoking, COPD, CAD, Cancer, CVA, ARF, Chemo, Hep., AIDS, mental health diagnosis, sleep apnea, m orbid obesity)? @ -None Was patient admitted / discharged? Hospital course, mention meds given and r oute, prescriptions, significant lab abnormalities, going to OR and other pertinent info. @ -Admitted patient is found to have significant metabolic acidosis patient is having worsening abdominal pain with recent CT showing pneumatosis, fat stranding and concerning for colitis versus diverticulitis patient started on IV antibiotics, blood cultures were drawn patient was given IV fluids, analgesics. On-call surgeon Dr. Batres contacted to evaluate the patient regarding 's postsurgical patient. Undiagnosed new problem with uncertain prognosis? @ -No Drug Therapy requiring intensive monitoring for toxicity (Heparin, Nitro, Insulin, Cardizem)? @ -No Were any procedures done? @ -No Diagnosis/symptom? @ -Abdominal pain, metabolic acidosis, dehydration, nausea vomiting, diverticulitis Acute, or Chronic, or Acute on Chronic? @ -Acute Uncomplicated (without systemic symptoms) or Complicated (systemic symptoms)? @ -Complicated Side effects of treatment? @ -No Exacerbation, Progression, or Severe Exacerbation? @ -No Poses a threat to life or bodily function? How? (Chest pain, USA, TX, pneumonia, PE, COPD, DKA, ARF, appy, cholecystitis, CVA, Diverticulitis, Homicidal, Suicidal, threat to staff... and all critical care pts) @ -Yes diverticulitis possible surgical risk, infection - Lab Data Result diagrams: 02/28/24 14:53 02/28/24 14:53 Lab Results 02/28/24 02/28/24 02/28/24 Range/Units 14:53 14:53 14:53 WBC 5.6 (3.8-10.6) k/uL RBC 5.03 (4.30-5.90) m/uL Hgb 15.3 (13.0-17.5) gm/dL Hct 48.1 (39.0-53.0) % MCV 95.6 (80.0-100.0) fL MCH 30.4 (25.0-35.0) pg MCHC 31.8 (31.0-37.0) g/dL RDW 14.3 (11.5-15.5) % Plt Count 102 L (150-450) k/uL MPV 8.1 Neutrophils % 66 % Lymphocytes % 21 % Monocytes % 7 % Eosinophils % 2 % Basophils % 1 % Neutrophils # 3.7 (1.3-7.7) k/uL Lymphocytes # 1.2 (1.0-4.8) k/uL Monocytes # 0.4 (0-1.0) k/uL Eosinophils # 0.1 (0-0.7) k/uL Basophils # 0.0 (0-0.2) k/uL PT (10.0-12.5) sec INR (<1.2) APTT (22.0-30.0) sec Sodium 138 (137-145) mmol/L Potassium 4.2 (3.5-5.1) mmol/L Chloride 110 H (98-107) mmol/L Carbon Dioxide 12 L (22-30) mmol/L Anion Gap 16 mmol/L BUN 40 H (9-20) mg/dL Creatinine 1.31 H (0.66-1.25) mg/dL Est GFR (CKD-EPI)AfAm 61 (>60 ml/min/1.73 sqM) Est GFR (CKD-EPI)NonAf 53 (>60 ml/min/1.73 sqM) Glucose 205 H (74-99) mg/dL Plasma Lactic Acid Evgeny 2.2 H* (0.7-2.0) mmol/L Calcium 8.8 (8.4-10.2) mg/dL Total Bilirubin 1.8 H (0.2-1.3) mg/dL AST 84 H (17-59) U/L ALT 51 H (4-49) U/L Alkaline Phosphatase 78 (38-126) U/L Total Protein 8.7 H (6.3-8.2) g/dL Albumin 4.7 (3.5-5.0) g/dL Amylase 56 (30-110) U/L Lipase 138 (23-300) U/L Urine Color Urine Appearance (Clear) Urine pH (5.0-8.0) Ur Specific Mobile (1.001-1.035) Urine Protein (Negative) Urine Glucose (UA) (Negative) Urine Ketones (Negative) Urine Blood (Negative) Urine Nitrite (Negative) Urine Bilirubin (Negative) Urine Urobilinogen (<2.0) mg/dL Ur Leukocyte Esterase (Negative) Urine RBC (0-5) /hpf Urine WBC (0-5) /hpf Ur Squamous Epith Cells (0-4) /hpf Hyaline Casts (0-2) /lpf Granular Casts (0) /lpf Urine Mucus (None) /hpf 02/28/24 02/28/24 Range/Units 15:02 15:15 WBC (3.8-10.6) k/uL RBC (4.30-5.90) m/uL Hgb (13.0-17.5) gm/dL Hct (39.0-53.0) % MCV (80.0-100.0) fL MCH (25.0-35.0) pg MCHC (31.0-37.0) g/dL RDW (11.5-15.5) % Plt Count (150-450) k/uL MPV Neutrophils % % Lymphocytes % % Monocytes % % Eosinophils % % Basophils % % Neutrophils # (1.3-7.7) k/uL Lymphocytes # (1.0-4.8) k/uL Monocytes # (0-1.0) k/uL Eosinophils # (0-0.7) k/uL Basophils # (0-0.2) k/uL PT 11.0 (10.0-12.5) sec INR 1.0 (<1.2) APTT 21.6 L (22.0-30.0) sec Sodium (137-145) mmol/L Potassium (3.5-5.1) mmol/L Chloride (98-107) mmol/L Carbon Dioxide (22-30) mmol/L Anion Gap mmol/L BUN (9-20) mg/dL Creatinine (0.66-1.25) mg/dL Est GFR (CKD-EPI)AfAm (>60 ml/min/1.73 sqM) Est GFR (CKD-EPI)NonAf (>60 ml/min/1.73 sqM) Glucose (74-99) mg/dL Plasma Lactic Acid Evgeny (0.7-2.0) mmol/L Calcium (8.4-10.2) mg/dL Total Bilirubin (0.2-1.3) mg/dL AST (17-59) U/L ALT (4-49) U/L Alkaline Phosphatase (38-126) U/L Total Protein (6.3-8.2) g/dL Albumin (3.5-5.0) g/dL Amylase (30-110) U/L Lipase (23-300) U/L Urine Color Yellow Urine Appearance Cloudy (Clear) Urine pH 6.0 (5.0-8.0) Ur Specific Mobile 1.034 (1.001-1.035) Urine Protein 1+ H (Negative) Urine Glucose (UA) Negative (Negative) Urine Ketones Negative (Negative) Urine Blood Negative (Negative) Urine Nitrite Negative (Negative) Urine Bilirubin Negative (Negative) Urine Urobilinogen 4.0 (<2.0) mg/dL Ur Leukocyte Esterase Trace H (Negative) Urine RBC 1 (0-5) /hpf Urine WBC 4 (0-5) /hpf Ur Squamous Epith Cells 1 (0-4) /hpf Hyaline Casts 93 H (0-2) /lpf Granular Casts 17 (0) /lpf Urine Mucus Occasional H (None) /hpf Disposition Clinical Impression: Diverticulitis, Metabolic acidosis, Abdominal pain, Status post colon resection, Lactic acid acidosis, Nausea & vomiting Disposition: ADMITTED IP TO THIS [facility] Condition: Poor Referrals: Carrie Bains MD [Primary Care Provider] - 1-2 days Time of Disposition: 16:33
[2024-02-28 15:02] LABS: Basophils % (A) 1 %; Eosinophils # (A) 0.1 k/uL (0-0.7); Eosinophils % (A) 2 %; HCT 48.1 % (39.0-53.0); HGB 15.3 gm/dL (13.0-17.5); Lymphocytes # (A) 1.2 k/uL (1.0-4.8); Lymphocytes % (A) 21 %; MCH 30.4 pg (25.0-35.0); MCHC 31.8 g/dL (31.0-37.0); MCV 95.6 fL (80.0-100.0); Mean Platelet Volume 8.1; Monocytes # (A) 0.4 k/uL (0-1.0); Monocytes % (A) 7 %; Neutrophils # (A) 3.7 k/uL (1.3-7.7); Neutrophils % (A) 66 %; Platelet Count 102 k/uL (150-450); RBC 5.03 m/uL (4.30-5.90); RDW 14.3 % (11.5-15.5); WBC 5.6 k/uL (3.8-10.6)
[2024-02-28] MEDS: HYDROmorphone 0.5 MG/0.5 ML SYRINGE IVP STA (15:15)
[2024-02-28] MEDS: SODIUM CHLORIDE 0.9% 1,000 ML IV STA (15:15)
[2024-02-28] MEDS: ONDANSETRON 4 MG/2 ML VIAL IVP STA (15:16)
[2024-02-28 15:18] LABS: ALT 51 U/L (4-49); AST 84 U/L (17-59); African American GFR (CKD) 61 (>60 ml/min/1.73 sqM); Albumin 4.7 g/dL (3.5-5.0); Alkaline Phosphatase 78 U/L (38-126); Amylase 56 U/L (30-110); Anion Gap 16 mmol/L; Blood Urea Nitrogen 40 mg/dL (9-20); Calcium 8.8 mg/dL (8.4-10.2); Carbon Dioxide 12 mmol/L (22-30); Chloride 110 mmol/L (98-107); Glucose 205 mg/dL (74-99); Lipase 138 U/L (23-300); Non-African American GFR(CKD) 53 (>60 ml/min/1.73 sqM); Sodium 138 mmol/L (137-145); Total Bilirubin 1.8 mg/dL (0.2-1.3); Total Protein 8.7 g/dL (6.3-8.2)
--- NOTE | 2024-02-28 15:21 | XR ---
EXAMINATION TYPE: XR KUB DATE OF EXAM: 02/28/2024 COMPARISON: 02/17/2024 HISTORY: Pain TECHNIQUE: Single supine KUB image of the abdomen is obtained FINDINGS: Small bowel demonstrates no evidence for dilatation or air fluid levels. Distal colonic resection ch anges. Gas and fecal material is seen in non-distended colon. No convincing evidence for pneumoperitoneum. No unusual calcifications. The lung bases are clear. The osseous structures are intact. IMPRESSION: 1. Overall nonobstructive bowel gas pattern.
[2024-02-28 15:24] LABS: Potassium 4.2 mmol/L (3.5-5.1)
[2024-02-28 15:25] LABS: Appearance,Urine Cloudy (Clear); Bilirubin,Urine Negative (Negative); Blood,Urine Negative (Negative); Color,Urine Yellow; Glucose,Urine (UA) Negative (Negative); Granular Casts,Urine 17 /lpf (0); Hyaline Casts,Urine 93 /lpf (0-2); Ketones,Urine Negative (Negative); Leukocyte Esterase,Urine Trace (Negative); Mucus,Urine Occasional /hpf; Nitrite,Urine Negative (Negative); Protein,Urine 1+ (Negative); RBC,Urine 1 /hpf (0-5); Specific Gravity,Urine 1.034 (1.001-1.035); Squamous Epithelial Cell,Urine 1 /hpf (0-4); WBC,Urine 4 /hpf (0-5)
[2024-02-28 15:43] LABS: Partial Thromboplastin Time 21.6 sec (22.0-30.0)
[2024-02-28] MEDS: SODIUM CHLORIDE 0.9% 500 ML 500 ML IV ONE (16:17)
[2024-02-28] MEDS ORDERED: ONDANSETRON 4 MG/2 ML VIAL IVP PRN (16:37)
[2024-02-28] MEDS ORDERED: NALOXONE 0.4 MG/ML 1 ML VIAL IV PRN (16:37)
[2024-02-28] MEDS ORDERED: HYDROmorphone 0.5 MG/0.5 ML SYRINGE IVP PRN (16:37)
[2024-02-28] MEDS: SODIUM CHLORIDE 0.9% 1,000 ML IV SCH (16:45)
[2024-02-28] MEDS: PIPERACILLIN-TAZOBACTAM 3.375 GM in SODIUM CHLORIDE 0.9% 100 ML IVPB SCH (17:16)
[2024-02-28] MEDS ORDERED: MELATONIN 3 MG TABLET PO PRN (17:28)
[2024-02-28] MEDS ORDERED: MORPHINE SULFATE 4 MG/ML SYRINGE IVP PRN (17:28)
[2024-02-28] MEDS ORDERED: ACETAMINOPHEN TAB 325 MG TAB PO PRN (17:28)
[2024-02-28] MEDS ORDERED: CALCIUM CARBONATE 500 MG CHEWABLE PO PRN (17:28)
[2024-02-28] MEDS ORDERED: ALBUTEROL NEBULIZED 2.5 MG/3 ML INHALATION PRN (17:31)
[2024-02-28] MEDS ORDERED: DEXTROSE 50% SYRINGE 50 ML IVP PRN ×2 (17:34)
--- NOTE | 2024-02-28 17:39 | P.HPIM ---
History of Present Illness H&P Date: 02/28/24 Patient is a 78-year-old male with a history of ischemic cardiomyopathy, nonsustained V. tach, coronary artery disease status post multiple stents hypertension, dyslipidemia, diabetes mellitus type 2, recent low anterior colon resection in November 2023 scheduled outpatient for diverticulitis, and multiple other comorbid conditions who presented to the ER with complaints of abdominal pain and inability to tolerate oral intake. On arrival to the ER today his vital signs within normal limits. Laboratory analysis included CBC, coagulation studies, CMP, lactic acid, amylase, and lipase which were remarkable for chloride 110, carbon dioxide 12, anion gap 16, BUN 40, creatinine 1.31 (baseline 0.65), glucose of 205, lactic acid 2.2, bilirubin 1.8, AST 84, ALT 51. Urinalysis was negative. KUB showed a nonobstructive bowel gas pattern gas and fecal material were noted. In the ER he received a dose of Dilaudid 2 L of fluid, and a dose of Zofran. He remained painful and unable to tolerate oral intake and therefore arrangements were made for admission. Patient was also seen in the ER on 02/26/2024 and at that point in time underwent a CT abdomen and pelvis with IV contrast which demonstrated mild fat stranding in the left lower quadrant around the distal colon with fluid throughout the colon suggesting diarrhea. Possibly postoperative changes versus colitis and intraluminal contents versus pneumatosis in the cecum. Patient was also here on 02/16 for abdominal pain. Patient seen and examined at bedside. He reports that he has been having chronic diarrhea since November of this year after having his colon resection. He reports he may have had 1-2 formed stools since that time. He states that he saw Dr. Quiroz for suture removal but has not seen him since. He has also not gone his primary care physician about this. Over the last 2 weeks he has had consistent and worsening abdominal pain. It is periumbilical without radiation. He describes it as a gnawing pain and it used to come and go but is now they are pretty much constantly. He reports nausea but has only had 1 episode of vomiting. He reports that his stools are very black in color. He denies a history of C. difficile or H. pylori. He reports a significant history of gastric ulcers. He reports a 30 pound weight loss since November. He has had no appetite in the last several days. He states eating does not make his pain better or worse. He does state that orange juice or orange pop makes the pain worse however if he eats something like soup or oatmeal the pain remains unchanged. Of note despite his abdominal pain patient is asking for a diet. He uses an electric wheel chair at home. Vital signs reviewed General: nontoxic, no distress, appears at stated age Derm: warm, dry Eyes: EOMI, no lid lag, anicteric sclera, pupils pinpoint, dry mucous membranes ENT: Nose and ears atraumatic Cardiovascular: S1S2 reg, no murmur, no edema Lungs: clear to auscultation bilateral, no rhonchi, no rales, no wheeze, no accessory muscle use Abdominal: soft, tender to palpation epigastric, no guarding Ext: no gross muscle atrophy, no contractures Neuro: CN II-XII grossly intact, No focal neuro deficits Psych: Alert, oriented, appropriate affect Assessment/Plan: Intractable abdominal pain- ulcers, vs partial obstruction vs coliting Diarrhea Lactic Acidosis DIPTI Hyperchloremic metabolic acidosis - 0.9% normal saline at 75 cc/hr given cardiomyopathy - Check CT abd and pelvis with oral contrast - Start zosyn 3.375 g IVP q 8 hours D#1 - Check stool culture and for C. diff. - stop oral iron which may be contributing to diarrhea and black stools - Protonix 40 mg IVP BID - Hold lisinopril due to DIPTI Ischemic cardiomyopathy, last known ejection fraction 40 to 45% Coronary artery disease Hypertension Dyslipidemia -Aspirin 81 mg daily, Lipitor 80 mg daily, Coreg 12.5 mg twice daily, lisinopril on hold due to DIPTI Diabetes mellitus - hold metformin - hold 70/30 - Sliding scale insulin, Novolog 4 units with meals, Levemir 15 units at night. - Check A1C Thrombocytopenia, chronic and at baseline - follow CBC Chronic: COPD without exacerbation GERD History of SVT History of thrombocytopenia History of stomach ulcers Imaging: As per HPI Data Review: As per HPI The patient is admitted with an anticipated greater than 2 midnight stay for evaluation of lactic acidosis with intractable abdominal pain Surrogate decision-maker: CODE STATUS:Full DVT prophylaxis: Lovenox Anticipated discharge date: Pending Clinical Course Anticipated discharge place: Pending Clinical Course This dictation was prepared using [employer] voice recognition software. Though every attempt is made to correct errors during dictation some may still exist. Past Medical History Past Medical History: Blood Disorder, Coronary Artery Disease (CAD), Chest Pain / Angina, Heart Failure, COPD, Diabetes Mellitus, GERD/Reflux, Hyperlipidemia, Hypertension, Liver Disease, Myocardial Infarction ([place]), Pneumonia, Supraventricular Tachycardia (SVT), Vascular Disorder Additional Past Medical History / Comment(s): Recent hospitalization for d iverticulitis. Ischemic CMP, nonsustained ventriclar arrhythmia, systolic heart failure, [place] x 2 in 2001, 1994, thrombocytopenia, kidney stones, gout bilateral feet/ toes, hx bilat tinnitis, stomach ulcers 2020 Last Myocardial Infarction Date:: 2001 History of Any Multi-Drug Resistant Organisms: None Reported Past Surgical History: Cardiac Ablation, Cholecystectomy, Heart Catheterization, Heart Catheterization With Stent, Joint Replacement, Orthopedic Surgery Additional Past Surgical History / Comment(s): PCIs with total 6 stents per patient, cardiac ablation-AVRNT, EPS, R caratid stent, R knee arthroscopy, bilateral total knee replacements x2-L side became infected-had I&D, bilateral shoulder rotator cuff surgeries with R side done 3 times, L ankle surgery, bilateral carpal tunnel releases, colonoscopy. EGD lft shoulder x1. Low anterior partial colon resection Nov 2023. Past Anesthesia/Blood Transfusion Reactions: No Reported Reaction Additional Past Anesthesia/Blood Transfusion Reaction / Comment(s): never had a blood tranfusion Date of Last Stent Placement:: 02/05/19 Past Psychological History: No Psychological Hx Reported Smoking Status: Former smoker Past Alcohol Use History: Rare Past Drug Use History: None Reported - Past Family History Father History Unknown: Yes Additional Family Medical History / Comment(s): Pt does not know his father's history. His parents were when he was 6 yrs old. Mother History Unknown: Yes Family Medical History: Cancer Additional Family Medical History / Comment(s): Pt states mother had some form of cancer which she from at the age of 77yrs. Medications and Allergies Home Medications Medication Instructions Recorded Confirmed Type metFORMIN HCL [Glucophage] 1,000 mg PO BID 06/07/14 02/28/24 History Ferrous Sulfate [Iron (65 MG 325 mg PO DAILY 03/07/16 02/28/24 History Elemental)] Magnesium Oxide [Mag-Ox] 250 mg PO DAILY 07/11/19 02/28/24 History Nitroglycerin Sl Tabs [Nitrostat] 0.4 mg SL Q5M PRN 07/17/21 02/28/24 History allopurinoL [Zyloprim] 100 mg PO DAILY 07/17/21 02/28/24 History carvediloL [Coreg] 12.5 mg PO BID 11/27/21 02/28/24 History Aspirin EC [Ecotrin Low Dose] 81 mg PO DAILY 02/10/22 02/28/24 History lisinopriL [Zestril] 2.5 mg PO DAILY 02/10/22 02/28/24 History Atorvastatin [Lipitor] 80 mg PO DAILY 03/07/22 02/28/24 History Albuterol Inhaler [Ventolin Hfa 2 puff INHALATION RT-Q4H PRN 07/22/23 02/28/24 History Inhaler] Insulin NPH Hum/Reg Insulin Hm 30 unit SQ BID@0800,1700 10/16/23 02/28/24 History [NovoLIN 70-30 100 Unit/ml Vial] Acetaminophen Tab [Tylenol] 500 mg PO Q6H PRN #40 tablet 02/26/24 02/28/24 Rx Amoxic-Pot Clav 875-125Mg 1 tab PO Q12HR 7 Days #14 tab 02/26/24 02/28/24 Rx [Augmentin 875-125] Ondansetron Odt [Zofran Odt] 4 mg PO Q8HR PRN #10 tab 02/26/24 02/28/24 Rx Allergies Allergy/AdvReac Type Severity Reaction Status Date / Time No Known Allergies Allergy Verified 02/28/24 17:33 Physical Exam Osteopathic Statement: *. No significant issues noted on an osteopathic structural exam other than those noted in the History and Physical/Consult. Vitals: Vital Signs Temp Pulse Resp BP Pulse Ox 02/28/24 17:20 98.0 F 64 20 85/50 100 02/28/24 16:45 69 17 105/52 100 02/28/24 16:15 98.2 F 71 17 95/56 100 02/28/24 15:18 98.2 F 77 19 95/50 98 02/28/24 14:04 82 20 113/71 99 02/28/24 13:44 98.5 F 82 20 110/73 100 Intake and Output 0402/28/24 02/28/24 06:59 14:59 22:59 Other: Weight 101.151 kg Results CBC & Chem 7: 02/28/24 14:53 02/28/24 14:53 Labs: Abnormal Lab Results - Last 24 Hours (Table) 02/28/24 02/28/24 02/28/24 Range/Units 14:53 14:53 14:53 Plt Count 102 L (150-450) k/uL APTT (22.0-30.0) sec Chloride 110 H (98-107) mmol/L Carbon Dioxide 12 L (22-30) mmol/L BUN 40 H (9-20) mg/dL Creatinine 1.31 H (0.66-1.25) mg/dL Glucose 205 H (74-99) mg/dL Plasma Lactic Acid Evgeny 2.2 H* (0.7-2.0) mmol/L Total Bilirubin 1.8 H (0.2-1.3) mg/dL AST 84 H (17-59) U/L ALT 51 H (4-49) U/L Total Protein 8.7 H (6.3-8.2) g/dL Urine Protein (Negative) Ur Leukocyte Esterase (Negative) Hyaline Casts (0-2) /lpf Urine Mucus (None) /hpf 02/28/24 02/28/24 Range/Units 15:02 15:15 Plt Count (150-450) k/uL APTT 21.6 L (22.0-30.0) sec Chloride (98-107) mmol/L Carbon Dioxide (22-30) mmol/L BUN (9-20) mg/dL Creatinine (0.66-1.25) mg/dL Glucose (74-99) mg/dL Plasma Lactic Acid Evgeny (0.7-2.0) mmol/L Total Bilirubin (0.2-1.3) mg/dL AST (17-59) U/L ALT (4-49) U/L Total Protein (6.3-8.2) g/dL Urine Protein 1+ H (Negative) Ur Leukocyte Esterase Trace H (Negative) Hyaline Casts 93 H (0-2) /lpf Urine Mucus Occasional H (None) /hpf
[2024-02-28] MEDS: HYDROcodone/APAP 5-325MG 1 EACH TAB PO PRN (18:12)
[2024-02-28] MEDS: carvediloL 12.5 MG TAB PO SCH (18:14)
[2024-02-28] MEDS: PANTOPRAZOLE 40 MG/10 ML VIAL IVP ONE (18:14)
[2024-02-28] MEDS: IOPAMIDOL CONTRAST (ORAL USE) VIAL PO PRN (20:12)
[2024-02-28 20:21] LABS: Glucose,Whole Blood 210 mg/dL (70-110)
[2024-02-28] MEDS: INSULIN ASPART (NovoLOG) 100 UNIT/ML VIAL SQ SCH (20:53)
[2024-02-28] MEDS: INSULIN DETEMIR (LEVEMIR) 100 UNIT/ML SYR SQ SCH (20:53)
--- NOTE | 2024-02-28 22:21 | CT ---
EXAMINATION TYPE: CT abdomen pelvis wo con DATE OF EXAM: 02/28/2024 HISTORY: abdominal pain and distention, hx of bowel resection CT DLP: 1191.8 mGycm. Automated Exposure Control for Dose Reduction was Utilized. TECHNIQUE: CT scan of the abdomen and pelvis is performed with oral but without IV contrast. COMPARISON: Most recent CT 2 days earlier FINDINGS: Within the limitations of a non-contrast study, the following observations are made. LUNG BASES: Coronary artery desiccation and/or stents are redemonstrated. LIVER/GB: Cholecystectomy clips are redemonstrated. PANCREAS: No significant abnormality is seen. SPLEEN:. Splenomegaly measures 15.7 cm long axis coronal image 70 similar to prior. ADRENALS: No significant abnormality is seen. KIDNEYS: Cortical thinning in both kidneys as seen. Central vascular calcifications redemonstrated. I ncidental small exophytic thin-walled cyst left kidney axial image 35 redemonstrated. No hydronephros is seen bilaterally. BOWEL: Oral contrast reaches level of the mid transverse colon. Surgical change proximal sigmoid colo n in the pelvis axial image 58 is present. No abnormal small or large bowel dilatation. Fluid in the rectum is seen. GENITAL ORGANS: Calcifications and normal size prostate. LYMPH NODES: No greater than 1cm abdominal or pelvic lymph nodes are appreciated. OSSEOUS STRUCTURES: No significant abnormality is seen. OTHER: Moderate calcified plaque of the aorta extends into branch vessels. IMPRESSION: 1. Persistent abnormal fluid in the distal bowel raises concern for uncomplicated colitis and/or diar jenny. Correlate clinically. No bowel obstruction. 2. No suspicious new or acute finding otherwise seen.
[2024-02-29 03:39] LABS: ALT 41 U/L (4-49); AST 52 U/L (17-59); African American GFR (CKD) 59 (>60 ml/min/1.73 sqM); Albumin 3.2 g/dL (3.5-5.0); Albumin/Globulin Ratio 1.1; Alkaline Phosphatase 75 U/L (38-126); Anion Gap 12 mmol/L; Blood Urea Nitrogen 40 mg/dL (9-20); Calcium 7.6 mg/dL (8.4-10.2); Chloride 113 mmol/L (98-107); Glucose 146 mg/dL (74-99); Non-African American GFR(CKD) 51 (>60 ml/min/1.73 sqM); Potassium 3.4 mmol/L (3.5-5.1); Sodium 134 mmol/L (137-145); Total Bilirubin 1.1 mg/dL (0.2-1.3); Total Protein 6.2 g/dL (6.3-8.2)
[2024-02-29 03:55] LABS: Carbon Dioxide 9 mmol/L (22-30)
[2024-02-29 05:35] LABS: Basophils % (A) 1 %; Eosinophils # (A) 0.1 k/uL (0-0.7); Eosinophils % (A) 2 %; HCT 38.3 % (39.0-53.0); Hypochromasia Slight; Lymphocytes % (A) 23 %; MCH 30.8 pg (25.0-35.0); MCHC 31.9 g/dL (31.0-37.0); MCV 96.5 fL (80.0-100.0); Mean Platelet Volume 8.1; Monocytes # (A) 0.4 k/uL (0-1.0); Monocytes % (A) 8 %; Neutrophils # (A) 2.8 k/uL (1.3-7.7); Neutrophils % (A) 63 %; RBC 3.97 m/uL (4.30-5.90); RDW 14.3 % (11.5-15.5); WBC 4.4 k/uL (3.8-10.6)
[2024-02-29 05:36] LABS: HGB 12.2 gm/dL (13.0-17.5)
[2024-02-29 06:58] LABS: Platelet Count 68 k/uL (150-450)
[2024-02-29 07:08] LABS: Glucose,Whole Blood 146 mg/dL (70-110)
[2024-02-29] MEDS: ENOXAPARIN 40 MG/0.4 ML SYRINGE SQ SCH (08:09)
[2024-02-29] MEDS: INSULIN ASPART (NovoLOG) 100 UNIT/ML VIAL SQ SCH (08:09)
[2024-02-29] MEDS: allopurinoL 100 MG TAB PO SCH (08:10)
[2024-02-29] MEDS: ASPIRIN 81 MG PO SCH (08:10)
[2024-02-29] MEDS: ATORVASTATIN 80 MG TAB PO SCH (08:10)
[2024-02-29] MEDS: PANTOPRAZOLE 40 MG/10 ML VIAL IVP SCH (08:11)
[2024-02-29] MEDS ORDERED: DEXTROSE 5% IV SCH (10:00)
[2024-02-29] MEDS ORDERED: SODIUM CHLORIDE IV SCH (10:00)
[2024-02-29] MEDS ORDERED: WATER IV SCH (10:00)
[2024-02-29] MEDS: POTASSIUM CHLORIDE ER 20 MEQ TAB.ER PO STA (10:41)
[2024-02-29] MEDS: DEXTROSE 5% IN WATER 1,000 ML with SODIUM BICARB (1 MEQ/ML) 150 ML IV SCH (10:41)
--- NOTE | 2024-02-29 11:07 | P.GSCN ---
History of Present Illness Consult date: 02/29/24 Reason for Consult: Diarrhea History of present illness: 78-year-old male comes to the hospital because of abdominal pain and anorexia. Patient describes chronic diarrhea since his colectomy surgery in November. This was done apparently for diverticulitis. Describes black-colored stools. Found to have significant acidosis. Nephrology following. This is thought to be possibly related or at least exacerbated by his chronic diarrhea. He was started on IV antibiotics. CAT scan shows fluid-filled bowel loops. No inflammatory changes. C. difficile is negative. Occult blood positive. No significant pain currently. Review of Systems The patient denies any acute changes in vision or hearing, no dysphagia or odynophagia, no chest pain or shortness of breath, no dysuria or hematuria, no headache, no runny nose, no rectal bleeding, no unexplained weight loss Past Medical History Past Medical History: Blood Disorder, Coronary Artery Disease (CAD), Chest Pain / Angina, Heart Failure, COPD, Diabetes Mellitus, GERD/Reflux, Hyperlipidemia, Hypertension, Liver Disease, Myocardial Infarction ([place]), Pneumonia, Supraventricular Tachycardia (SVT), Vascular Disorder Additional Past Medical History / Comment(s): Recent hospitalization for diver ticulitis. Ischemic CMP, nonsustained ventriclar arrhythmia, systolic heart failure, [place] x 2 in 2001, 1994, thrombocytopenia, kidney stones, gout bilateral feet/ toes, hx bilat tinnitis, stomach ulcers 2020 Last Myocardial Infarction Date:: 2001 History of Any Multi-Drug Resistant Organisms: None Reported Past Surgical History: Cardiac Ablation, Cholecystectomy, Heart Catheterization, Heart Catheterization With Stent, Joint Replacement, Orthopedic Surgery Additional Past Surgical History / Comment(s): PCIs with total 6 stents per patient, cardiac ablation-AVRNT, EPS, R caratid stent, R knee arthroscopy, bilateral total knee replacements x2-L side became infected-had I&D, bilateral shoulder rotator cuff surgeries with R side done 3 times, L ankle surgery, bilateral carpal tunnel releases, colonoscopy. EGD lft shoulder x1. Low anterior partial colon resection Nov 2023. Past Anesthesia/Blood Transfusion Reactions: No Reported Reaction Additional Past Anesthesia/Blood Transfusion Reaction / Comm: never had a blood tranfusion Date of Last Stent Placement:: 02/05/19 Past Psychological History: No Psychological Hx Reported Smoking Status: Former smoker Past Alcohol Use History: Rare Past Drug Use History: None Reported - Past Family History Father History Unknown: Yes Additional Family Medical History / Comment(s): Pt does not know his father's history. His parents were when he was 6 yrs old. Mother History Unknown: Yes Family Medical History: Cancer Additional Family Medical History / Comment(s): Pt states mother had some form of cancer which she from at the age of 77yrs. Medications and Allergies Home Medications Medication Instructions Recorded Confirmed Type metFORMIN HCL [Glucophage] 1,000 mg PO BID 06/07/14 02/28/24 History Ferrous Sulfate [Iron (65 MG 325 mg PO DAILY 03/07/16 02/28/24 History Elemental)] Magnesium Oxide [Mag-Ox] 250 mg PO DAILY 07/11/19 02/28/24 History Nitroglycerin Sl Tabs [Nitrostat] 0.4 mg SL Q5M PRN 07/17/21 02/28/24 History allopurinoL [Zyloprim] 100 mg PO DAILY 07/17/21 02/28/24 History carvediloL [Coreg] 12.5 mg PO BID 11/27/21 02/28/24 History Aspirin EC [Ecotrin Low Dose] 81 mg PO DAILY 02/10/22 02/28/24 History lisinopriL [Zestril] 2.5 mg PO DAILY 02/10/22 02/28/24 History Atorvastatin [Lipitor] 80 mg PO DAILY 03/07/22 02/28/24 History Albuterol Inhaler [Ventolin Hfa 2 puff INHALATION RT-Q4H PRN 07/22/23 02/28/24 History Inhaler] Insulin NPH Hum/Reg Insulin Hm 30 unit SQ BID@0800,1700 10/16/23 02/28/24 History [NovoLIN 70-30 100 Unit/ml Vial] Acetaminophen Tab [Tylenol] 500 mg PO Q6H PRN #40 tablet 02/26/24 02/28/24 Rx Amoxic-Pot Clav 875-125Mg 1 tab PO Q12HR 7 Days #14 tab 02/26/24 02/28/24 Rx [Augmentin 875-125] Ondansetron Odt [Zofran Odt] 4 mg PO Q8HR PRN #10 tab 02/26/24 02/28/24 Rx Allergies Allergy/AdvReac Type Severity Reaction Status Date / Time No Known Allergies Allergy Verified 02/28/24 17:33 Surgical - Exam Vital Signs Temp Pulse Resp BP Pulse Ox 98.5 F 82 20 110/73 100 02/28/24 13:44 02/28/24 13:44 02/28/24 13:44 02/28/24 13:44 02/28/24 13:44 Physical exam: General: Well-developed, well-nourished HEENT: Normocephalic, sclerae nonicteric Abdomen: Nontender, nondistended Extremities: No edema Neuro: Alert and oriented Results - Labs 02/29/24 04:45 02/29/24 03:04 Abnormal Lab Results - Last 24 Hours (Table) 02/28/24 02/28/24 02/28/24 Range/Units 14:53 14:53 14:53 RBC (4.30-5.90) m/uL Hgb (13.0-17.5) gm/dL Hct (39.0-53.0) % Plt Count 102 L (150-450) k/uL APTT (22.0-30.0) sec Sodium (137-145) mmol/L Potassium (3.5-5.1) mmol/L Chloride 110 H (98-107) mmol/L Carbon Dioxide 12 L (22-30) mmol/L BUN 40 H (9-20) mg/dL Creatinine 1.31 H (0.66-1.25) mg/dL Glucose 205 H (74-99) mg/dL POC Glucose (mg/dL) (70-110) mg/dL Hemoglobin A1c (<=6.0) % Plasma Lactic Acid Evgeny 2.2 H* (0.7-2.0) mmol/L Calcium (8.4-10.2) mg/dL Total Bilirubin 1.8 H (0.2-1.3) mg/dL AST 84 H (17-59) U/L ALT 51 H (4-49) U/L Total Protein 8.7 H (6.3-8.2) g/dL Albumin (3.5-5.0) g/dL Urine Protein (Negative) Ur Leukocyte Esterase (Negative) Hyaline Casts (0-2) /lpf Urine Mucus (None) /hpf 02/28/24 02/28/24 02/28/24 Range/Units 15:02 15:15 17:48 RBC (4.30-5.90) m/uL Hgb (13.0-17.5) gm/dL Hct (39.0-53.0) % Plt Count (150-450) k/uL APTT 21.6 L (22.0-30.0) sec Sodium (137-145) mmol/L Potassium (3.5-5.1) mmol/L Chloride (98-107) mmol/L Carbon Dioxide (22-30) mmol/L BUN (9-20) mg/dL Creatinine (0.66-1.25) mg/dL Glucose (74-99) mg/dL POC Glucose (mg/dL) (70-110) mg/dL Hemoglobin A1c (<=6.0) % Plasma Lactic Acid Evgeny 2.8 H* (0.7-2.0) mmol/L Calcium (8.4-10.2) mg/dL Total Bilirubin (0.2-1.3) mg/dL AST (17-59) U/L ALT (4-49) U/L Total Protein (6.3-8.2) g/dL Albumin (3.5-5.0) g/dL Urine Protein 1+ H (Negative) Ur Leukocyte Esterase Trace H (Negative) Hyaline Casts 93 H (0-2) /lpf Urine Mucus Occasional H (None) /hpf 02/28/24 02/28/24 02/28/24 Range/Units 20:19 21:09 23:47 RBC (4.30-5.90) m/uL Hgb (13.0-17.5) gm/dL Hct (39.0-53.0) % Plt Count (150-450) k/uL APTT (22.0-30.0) sec Sodium (137-145) mmol/L Potassium (3.5-5.1) mmol/L Chloride (98-107) mmol/L Carbon Dioxide (22-30) mmol/L BUN (9-20) mg/dL Creatinine (0.66-1.25) mg/dL Glucose (74-99) mg/dL POC Glucose (mg/dL) 210 H (70-110) mg/dL Hemoglobin A1c (<=6.0) % Plasma Lactic Acid Evgeny 2.8 H* 2.5 H* (0.7-2.0) mmol/L Calcium (8.4-10.2) mg/dL Total Bilirubin (0.2-1.3) mg/dL AST (17-59) U/L ALT (4-49) U/L Total Protein (6.3-8.2) g/dL Albumin (3.5-5.0) g/dL Urine Protein (Negative) Ur Leukocyte Esterase (Negative) Hyaline Casts (0-2) /lpf Urine Mucus (None) /hpf 02/29/24 02/29/24 02/29/24 Range/Units 03:04 03:04 03:04 RBC (4.30-5.90) m/uL Hgb (13.0-17.5) gm/dL Hct (39.0-53.0) % Plt Count (150-450) k/uL APTT (22.0-30.0) sec Sodium 134 L (137-145) mmol/L Potassium 3.4 L (3.5-5.1) mmol/L Chloride 113 H (98-107) mmol/L Carbon Dioxide 9 L* (22-30) mmol/L BUN 40 H (9-20) mg/dL Creatinine 1.35 H (0.66-1.25) mg/dL Glucose 146 H (74-99) mg/dL POC Glucose (mg/dL) (70-110) mg/dL Hemoglobin A1c 6.9 H (<=6.0) % Plasma Lactic Acid Evgeny 2.1 H* (0.7-2.0) mmol/L Calcium 7.6 L (8.4-10.2) mg/dL Total Bilirubin (0.2-1.3) mg/dL AST (17-59) U/L ALT (4-49) U/L Total Protein 6.2 L (6.3-8.2) g/dL Albumin 3.2 L (3.5-5.0) g/dL Urine Protein (Negative) Ur Leukocyte Esterase (Negative) Hyaline Casts (0-2) /lpf Urine Mucus (None) /hpf 02/29/24 02/29/24 Range/Units 04:45 07:06 RBC 3.97 L (4.30-5.90) m/uL Hgb 12.2 L D (13.0-17.5) gm/dL Hct 38.3 L (39.0-53.0) % Plt Count 68 L (150-450) k/uL APTT (22.0-30.0) sec Sodium (137-145) mmol/L Potassium (3.5-5.1) mmol/L Chloride (98-107) mmol/L Carbon Dioxide (22-30) mmol/L BUN (9-20) mg/dL Creatinine (0.66-1.25) mg/dL Glucose (74-99) mg/dL POC Glucose (mg/dL) 146 H (70-110) mg/dL Hemoglobin A1c (<=6.0) % Plasma Lactic Acid Evgeny (0.7-2.0) mmol/L Calcium (8.4-10.2) mg/dL Total Bilirubin (0.2-1.3) mg/dL AST (17-59) U/L ALT (4-49) U/L Total Protein (6.3-8.2) g/dL Albumin (3.5-5.0) g/dL Urine Protein (Negative) Ur Leukocyte Esterase (Negative) Hyaline Casts (0-2) /lpf Urine Mucus (None) /hpf Diabetes panel 02/28/24 02/29/24 02/29/24 Range/Units 14:53 03:04 03:04 Sodium 138 134 L (137-145) mmol/L Potassium 4.2 3.4 L (3.5-5.1) mmol/L Chloride 110 H 113 H (98-107) mmol/L Carbon Dioxide 12 L 9 L* (22-30) mmol/L BUN 40 H 40 H (9-20) mg/dL Creatinine 1.31 H 1.35 H (0.66-1.25) mg/dL Glucose 205 H 146 H (74-99) mg/dL Hemoglobin A1c 6.9 H (<=6.0) % Calcium 8.8 7.6 L (8.4-10.2) mg/dL AST 84 H 52 (17-59) U/L ALT 51 H 41 (4-49) U/L Alkaline Phosphatase 78 75 (38-126) U/L Total Protein 8.7 H 6.2 L (6.3-8.2) g/dL Albumin 4.7 3.2 L (3.5-5.0) g/dL Calcium panel 02/28/24 02/29/24 Range/Units 14:53 03:04 Calcium 8.8 7.6 L (8.4-10.2) mg/dL Albumin 4.7 3.2 L (3.5-5.0) g/dL Pituitary panel 02/28/24 02/29/24 Range/Units 14:53 03:04 Sodium 138 134 L (137-145) mmol/L Potassium 4.2 3.4 L (3.5-5.1) mmol/L Chloride 110 H 113 H (98-107) mmol/L Carbon Dioxide 12 L 9 L* (22-30) mmol/L BUN 40 H 40 H (9-20) mg/dL Creatinine 1.31 H 1.35 H (0.66-1.25) mg/dL Glucose 205 H 146 H (74-99) mg/dL Calcium 8.8 7.6 L (8.4-10.2) mg/dL Adrenal panel 02/28/24 02/29/24 Range/Units 14:53 03:04 Sodium 138 134 L (137-145) mmol/L Potassium 4.2 3.4 L (3.5-5.1) mmol/L Chloride 110 H 113 H (98-107) mmol/L Carbon Dioxide 12 L 9 L* (22-30) mmol/L BUN 40 H 40 H (9-20) mg/dL Creatinine 1.31 H 1.35 H (0.66-1.25) mg/dL Glucose 205 H 146 H (74-99) mg/dL Calcium 8.8 7.6 L (8.4-10.2) mg/dL Total Bilirubin 1.8 H 1.1 (0.2-1.3) mg/dL AST 84 H 52 (17-59) U/L ALT 51 H 41 (4-49) U/L Alkaline Phosphatase 78 75 (38-126) U/L Total Protein 8.7 H 6.2 L (6.3-8.2) g/dL Albumin 4.7 3.2 L (3.5-5.0) g/dL Assessment and Plan (1) Abdominal pain Narrative/Plan: 78-year-old male with abdominal pain, diarrhea, and black-colored stools. May benefit from upper and lower endoscopy. Add Imodium for diarrhea complaints. Follow labs. Will follow with you. Current Visit: Yes Status: Acute Code(s): R10.9 - UNSPECIFIED ABDOMINAL PAIN SNOMED Code(s): 35890979
--- NOTE | 2024-02-29 11:14 | P.PN ---
Subjective Progress Note Date: 02/29/24 Patient is a 78-year-old male with a history of ischemic cardiomyopathy, nonsustained V. tach, coronary artery disease status post multiple stents hypertension, dyslipidemia, diabetes mellitus type 2, recent low anterior colon resection in November 2023 scheduled outpatient for diverticulitis, and multiple other comorbid conditions who presented to the ER with complaints of abdominal pain and inability to tolerate oral intake. On arrival to the ER today his vital signs within normal limits. Laboratory analysis included CBC, coagulation studies, CMP, lactic acid, amylase, and lipase which were remarkable for chloride 110, carbon dioxide 12, anion gap 16, BUN 40, creatinine 1.31 (baseline 0.65), glucose of 205, lactic acid 2.2, bilirubin 1.8, AST 84, ALT 51. Urinalysis was negative. KUB showed a nonobstructive bowel gas pattern gas and fecal material were noted. In the ER he received a dose of Dilaudid 2 L of fluid, and a dose of Zofran. He remained painful and unable to tolerate oral intake and therefore arrangements were made for admission. Surgery was consulted. He was started on IV fluids. His lactic acid normalized but his a acidosis worsened. Patient seen and examined at bedside. He continues to have some abdominal pain. He states the pain medications are helping but as soon as they wear off he is feeling nauseated and painful again. He reports he is continuing to have watery diarrhea include an episode of fecal incontinence last evening. He denies any shortness of breath. Vital signs reviewed General: Nontoxic, no distress, appears at stated age Cardiovascular: S1S2 reg, no murmur Lungs: CTA bilateral, no rhonchi, no rales, no accessory muscle use Abdominal: Soft, tender to palpation diffusely, no guarding Ext: No gross muscle atrophy, no edema b/l lower extremities, no contractures Neuro: CN II-XI grossly intact, no focal neuro deficits Psych: Alert, oriented, appropriate affect Assessment/Plan: Intractable abdominal pain- ulcers, vs partial obstruction vs coliting + fecal occult blood Diarrhea - Zosyn 3.375 g IVP q 8 hours D#2 - Protonix 40 mg IVP BID -Triple consultation reviewed: Add Imodium, consider upper and lower endoscopy - clear liquid diet DIPTI , due to dehydration Nonanion gap metabolic acidosis, hyoerchloremic Lactic Acidosis, resolved -DC normal saline -Start D5W with 3 A of bicarb at 100 cc/h -Check VBG -Consult nephrology - Hold lisinopril due to DIPTI Ischemic cardiomyopathy, last known ejection fraction 40 to 45% Coronary artery disease Hypertension Dyslipidemia -Aspirin 81 mg daily, Lipitor 80 mg daily, Coreg 12.5 mg twice daily, lisinopril on hold due to DIPTI Diabetes mellitus - hold metformin - hold 70/30 - Sliding scale insulin, Novolog 4 units with meals, Levemir 15 units at night. - A1C 6.9 Anemia, newly discovered Thrombocytopenia, chronic and at baseline -Check iron studies -Repeat CBC in a.m. Hypokalemia -Potassium chloride 40 mill equivalents x 1 -Repeat in a.m. Imaging: CT abdomen and pelvis: Persistent abdominal fluid in the distal bile possible colitis or diarrhea, no suspicious acute findings otherwise. Data Review: Labs reviewed today include CBC and CMP which are remarkable for hemoglobin 12.2, platelets 68, potassium 3.4. Lactic acid has normalized to 1.8. A1c 6.9. C. difficile negative. Fecal occult positive. DVT prophylaxis: Lovenox Anticipated discharge date: Pending clinical course Anticipated discharge place: Pending clinical course This dictation was prepared using [employer] voice recognition software. Though every attempt is made to correct errors during dictation some may still exist. Objective - Vital Signs Vital signs: Vital Signs Temp 97.7 F 02/29/24 07:08 Pulse 63 02/29/24 08:00 Resp 18 02/29/24 08:00 BP 112/68 02/29/24 07:08 Pulse Ox 98 02/29/24 07:08 FiO2 Intake & Output 02/28/24 02/29/24 02/29/24 18:59 06:59 18:59 Intake Total 590 Balance 590 Weight 101.151 kg Intake: Oral 590 Other: Voiding Method Toilet Toilet # Voids 3 1 # Bowel Movements 1 - Labs CBC & Chem 7: 02/29/24 04:45 02/29/24 03:04 Labs: Abnormal Lab Results - Last 24 Hours (Table) 02/28/24 02/28/24 02/28/24 Range/Units 14:53 14:53 14:53 RBC (4.30-5.90) m/uL Hgb (13.0-17.5) gm/dL Hct (39.0-53.0) % Plt Count 102 L (150-450) k/uL APTT (22.0-30.0) sec Sodium (137-145) mmol/L Potassium (3.5-5.1) mmol/L Chloride 110 H (98-107) mmol/L Carbon Dioxide 12 L (22-30) mmol/L BUN 40 H (9-20) mg/dL Creatinine 1.31 H (0.66-1.25) mg/dL Glucose 205 H (74-99) mg/dL POC Glucose (mg/dL) (70-110) mg/dL Hemoglobin A1c (<=6.0) % Plasma Lactic Acid Evgeny 2.2 H* (0.7-2.0) mmol/L Calcium (8.4-10.2) mg/dL Total Bilirubin 1.8 H (0.2-1.3) mg/dL AST 84 H (17-59) U/L ALT 51 H (4-49) U/L Total Protein 8.7 H (6.3-8.2) g/dL Albumin (3.5-5.0) g/dL Urine Protein (Negative) Ur Leukocyte Esterase (Negative) Hyaline Casts (0-2) /lpf Urine Mucus (None) /hpf 02/28/24 02/28/24 02/28/24 Range/Units 15:02 15:15 17:48 RBC (4.30-5.90) m/uL Hgb (13.0-17.5) gm/dL Hct (39.0-53.0) % Plt Count (150-450) k/uL APTT 21.6 L (22.0-30.0) sec Sodium (137-145) mmol/L Potassium (3.5-5.1) mmol/L Chloride (98-107) mmol/L Carbon Dioxide (22-30) mmol/L BUN (9-20) mg/dL Creatinine (0.66-1.25) mg/dL Glucose (74-99) mg/dL POC Glucose (mg/dL) (70-110) mg/dL Hemoglobin A1c (<=6.0) % Plasma Lactic Acid Evgeny 2.8 H* (0.7-2.0) mmol/L Calcium (8.4-10.2) mg/dL Total Bilirubin (0.2-1.3) mg/dL AST (17-59) U/L ALT (4-49) U/L Total Protein (6.3-8.2) g/dL Albumin (3.5-5.0) g/dL Urine Protein 1+ H (Negative) Ur Leukocyte Esterase Trace H (Negative) Hyaline Casts 93 H (0-2) /lpf Urine Mucus Occasional H (None) /hpf 02/28/24 02/28/24 02/28/24 Range/Units 20:19 21:09 23:47 RBC (4.30-5.90) m/uL Hgb (13.0-17.5) gm/dL Hct (39.0-53.0) % Plt Count (150-450) k/uL APTT (22.0-30.0) sec Sodium (137-145) mmol/L Potassium (3.5-5.1) mmol/L Chloride (98-107) mmol/L Carbon Dioxide (22-30) mmol/L BUN (9-20) mg/dL Creatinine (0.66-1.25) mg/dL Glucose (74-99) mg/dL POC Glucose (mg/dL) 210 H (70-110) mg/dL Hemoglobin A1c (<=6.0) % Plasma Lactic Acid Evgeny 2.8 H* 2.5 H* (0.7-2.0) mmol/L Calcium (8.4-10.2) mg/dL Total Bilirubin (0.2-1.3) mg/dL AST (17-59) U/L ALT (4-49) U/L Total Protein (6.3-8.2) g/dL Albumin (3.5-5.0) g/dL Urine Protein (Negative) Ur Leukocyte Esterase (Negative) Hyaline Casts (0-2) /lpf Urine Mucus (None) /hpf 02/29/24 02/29/24 02/29/24 Range/Units 03:04 03:04 03:04 RBC (4.30-5.90) m/uL Hgb (13.0-17.5) gm/dL Hct (39.0-53.0) % Plt Count (150-450) k/uL APTT (22.0-30.0) sec Sodium 134 L (137-145) mmol/L Potassium 3.4 L (3.5-5.1) mmol/L Chloride 113 H (98-107) mmol/L Carbon Dioxide 9 L* (22-30) mmol/L BUN 40 H (9-20) mg/dL Creatinine 1.35 H (0.66-1.25) mg/dL Glucose 146 H (74-99) mg/dL POC Glucose (mg/dL) (70-110) mg/dL Hemoglobin A1c 6.9 H (<=6.0) % Plasma Lactic Acid Evgeny 2.1 H* (0.7-2.0) mmol/L Calcium 7.6 L (8.4-10.2) mg/dL Total Bilirubin (0.2-1.3) mg/dL AST (17-59) U/L ALT (4-49) U/L Total Protein 6.2 L (6.3-8.2) g/dL Albumin 3.2 L (3.5-5.0) g/dL Urine Protein (Negative) Ur Leukocyte Esterase (Negative) Hyaline Casts (0-2) /lpf Urine Mucus (None) /hpf 02/29/24 02/29/24 Range/Units 04:45 07:06 RBC 3.97 L (4.30-5.90) m/uL Hgb 12.2 L D (13.0-17.5) gm/dL Hct 38.3 L (39.0-53.0) % Plt Count 68 L (150-450) k/uL APTT (22.0-30.0) sec Sodium (137-145) mmol/L Potassium (3.5-5.1) mmol/L Chloride (98-107) mmol/L Carbon Dioxide (22-30) mmol/L BUN (9-20) mg/dL Creatinine (0.66-1.25) mg/dL Glucose (74-99) mg/dL POC Glucose (mg/dL) 146 H (70-110) mg/dL Hemoglobin A1c (<=6.0) % Plasma Lactic Acid Evgeny (0.7-2.0) mmol/L Calcium (8.4-10.2) mg/dL Total Bilirubin (0.2-1.3) mg/dL AST (17-59) U/L ALT (4-49) U/L Total Protein (6.3-8.2) g/dL Albumin (3.5-5.0) g/dL Urine Protein (Negative) Ur Leukocyte Esterase (Negative) Hyaline Casts (0-2) /lpf Urine Mucus (None) /hpf
--- NOTE | 2024-02-29 11:17 | P.NPCON ---
History of Present Illness - Reason for Consult Consult date: 02/29/24 acute renal failure - History of Present Illness Patient is a 78 yo male presented to ED for complaints of abdominal pain, n ausea, vomiting, and diarrhea. he recently underwent colon resection for diverticulitis earlier this year. He's been doing well for a few months but now is developed recurrent nausea and vomiting and was close follow-up with the surgeon but symptoms worsened prompting him to come to the ED for evaluation. He denies any history of kidney disease. He states that he's had chronic diarrhea since November after his surgery and rarely makes form stools. His appetite has been poor over the past many days due to his nausea. Patient is awake, No acute distress Examination of the heart S1 and S2 Examination of the lungs decreased breath sounds at bases Abdomen is soft nontender Examination of lower extremity shows no significant edema FIN[employer] exam shows patient is moving all 4 extremities. Review of Systems Constitutional: Reports as per HPI Past Medical History Past Medical History: Blood Disorder, Coronary Artery Disease (CAD), Chest Pain / Angina, Heart Failure, COPD, Diabetes Mellitus, GERD/Reflux, Hyperlipidemia, Hypertension, Liver Disease, Myocardial Infarction (UT), Pneumonia, Supraventricular Tachycardia (SVT), Vascular Disorder Additional Past Medical History / Comment(s): Recent hospitalization for diverticulitis. Ischemic CMP, nonsustained ventriclar arrhythmia, systolic heart failure, UT x 2 in 2001, 1994, thrombocytopenia, kidney stones, gout bilateral feet/ toes, hx bilat tinnitis, stomach ulcers 2020 Last Myocardial Infarction Date:: 2001 History of Any Multi-Drug Resistant Organisms: None Reported Past Surgical History: Cardiac Ablation, Cholecystectomy, Heart Catheterization, Heart Catheterization With Stent, Joint Replacement, Orthopedic Surgery Additional Past Surgical History / Comment(s): PCIs with total 6 stents per patient, cardiac ablation-AVRNT, EPS, R caratid stent, R knee arthroscopy, bilateral total knee replacements x2-L side became infected-had I&D, bilateral shoulder rotator cuff surgeries with R side done 3 times, L ankle surgery, bilat eral carpal tunnel releases, colonoscopy. EGD lft shoulder x1. Low anterior partial colon resection Nov 2023. Past Anesthesia/Blood Transfusion Reactions: No Reported Reaction Additional Past Anesthesia/Blood Transfusion Reaction / Comment(s): never had a blood tranfusion Date of Last Stent Placement:: 03/15/19 Past Psychological History: No Psychological Hx Reported Smoking Status: Former smoker Past Alcohol Use History: Rare Past Drug Use History: None Reported - Past Family History Father History Unknown: Yes Additional Family Medical History / Comment(s): Pt does not know his father's history. His parents were when he was 6 yrs old. Mother History Unknown: Yes Family Medical History: Cancer Additional Family Medical History / Comment(s): Pt states mother had some form of cancer which she from at the age of 77yrs. Medications and Allergies Home Medications Medication Instructions Recorded Confirmed Type metFORMIN HCL [Glucophage] 1,000 mg PO BID 06/07/14 02/28/24 History Ferrous Sulfate [Iron (65 MG 325 mg PO DAILY 03/07/16 02/28/24 History Elemental)] Magnesium Oxide [Mag-Ox] 250 mg PO DAILY 07/11/19 02/28/24 History Nitroglycerin Sl Tabs [Nitrostat] 0.4 mg SL Q5M PRN 07/17/21 02/28/24 History allopurinoL [Zyloprim] 100 mg PO DAILY 07/17/21 02/28/24 History carvediloL [Coreg] 12.5 mg PO BID 11/27/21 02/28/24 History Aspirin EC [Ecotrin Low Dose] 81 mg PO DAILY 02/10/22 02/28/24 History lisinopriL [Zestril] 2.5 mg PO DAILY 02/10/22 02/28/24 History Atorvastatin [Lipitor] 80 mg PO DAILY 03/07/22 02/28/24 History Albuterol Inhaler [Ventolin Hfa 2 puff INHALATION RT-Q4H PRN 07/22/23 02/28/24 History Inhaler] Insulin NPH Hum/Reg Insulin Hm 30 unit SQ BID@0800,1700 10/16/23 02/28/24 History [NovoLIN 70-30 100 Unit/ml Vial] Acetaminophen Tab [Tylenol] 500 mg PO Q6H PRN #40 tablet 02/26/24 02/28/24 Rx Amoxic-Pot Clav 875-125Mg 1 tab PO Q12HR 7 Days #14 tab 02/26/24 02/28/24 Rx [Augmentin 875-125] Ondansetron Odt [Zofran Odt] 4 mg PO Q8HR PRN #10 tab 02/26/24 02/28/24 Rx Allergies Allergy/AdvReac Type Severity Reaction Status Date / Time No Known Allergies Allergy Verified 02/28/24 17:33 Physical Exam Vitals: Vital Signs Temp Pulse Pulse Resp BP BP Pulse Ox 02/29/24 07:08 97.7 F 63 18 112/68 98 02/29/24 03:46 61 95/51 02/29/24 02:00 97.9 F 61 16 88/49 95 02/28/24 20:00 97.7 F 66 17 78/47 98 02/28/24 17:44 98.1 F 68 17 92/53 99 02/28/24 17:20 98.0 F 64 20 85/50 100 02/28/24 16:45 69 17 105/52 100 02/28/24 16:15 98.2 F 71 17 95/56 100 02/28/24 15:18 98.2 F 77 19 95/50 98 02/28/24 14:04 82 20 113/71 99 02/28/24 13:44 98.5 F 82 20 110/73 100 Intake and Output 02/28/24 02/29/24 02/29/24 22:59 06:59 14:59 Intake Total 590 Balance 590 Intake: Oral 590 Other: Voiding Method Toilet # Voids 3 1 # Bowel Movements 1 Weight 101.151 kg Results - Lab Results Most recent lab results Calcium 7.6 mg/dL (8.4-10.2) L 02/29/24 03:04 02/29/24 04:45 02/29/24 03:04 Assessment and Plan Assessment: 1. Nonoliguric DIPTI likely prerenal versus ATN from nausea vomiting diarrhea. Baseline creatinine 0.7, presented stable at 1.3. UA shows many hyaline casts. 2. Severe anion gap metabolic acidosis likely related to lactic acidosis, hyper chloremia, diarrhea, DIPTI. 3. Volume depletion diarrhea and poor oral intake. 4. Hypokalemia related to renal wasting in the setting of volume depletion 5. Type 2 diabetes mellitus 6. History of diverticulitis with colon resection. Plan Agree with starting bicarb drip given worsening acidosis likely in the setting of diarrhea Monitor potassium level on bicarb drip as it will likely worsen, will replace with 40 mEq today Surgery consult for management of abdominal pain and light of recent colon resection Check PVR, CPK level, trend BMP every 12 hours Continue to hold lisinopril in light of DIPTI Encourage oral intake Discussed with surgery team
[2024-02-29] MEDS: LOPERAMIDE 2 MG CAP PO SCH (11:30)
[2024-02-29 12:10] LABS: Glucose,Whole Blood 140 mg/dL (70-110)
[2024-02-29 13:37] LABS: % Iron Saturation 35.37 (15.00-50.00)
[2024-02-29 15:18] LABS: VBG PH 7.28 (7.31-7.41)
[2024-02-29 15:29] LABS: African American GFR (CKD) 72 (>60 ml/min/1.73 sqM); Anion Gap 11 mmol/L; Blood Urea Nitrogen 34 mg/dL (9-20); Calcium 7.8 mg/dL (8.4-10.2); Carbon Dioxide 11 mmol/L (22-30); Chloride 112 mmol/L (98-107); Glucose 153 mg/dL (74-99); Magnesium 2.1 mg/dL (1.6-2.3); Non-African American GFR(CKD) 62 (>60 ml/min/1.73 sqM); Potassium 3.5 mmol/L (3.5-5.1); Sodium 134 mmol/L (137-145)
[2024-02-29 17:07] LABS: Glucose,Whole Blood 150 mg/dL (70-110)
[2024-02-29 20:38] LABS: Glucose,Whole Blood 166 mg/dL (70-110)
[2024-03-01 06:37] LABS: HCT 33.7 % (39.0-53.0); HGB 11.2 gm/dL (13.0-17.5); MCH 30.6 pg (25.0-35.0); MCHC 33.2 g/dL (31.0-37.0); MCV 92.3 fL (80.0-100.0); Mean Platelet Volume 7.8; RBC 3.65 m/uL (4.30-5.90); RDW 14.1 % (11.5-15.5); WBC 2.3 k/uL (3.8-10.6)
[2024-03-01 06:51] LABS: Platelet Count 58 k/uL (150-450)
[2024-03-01 06:54] LABS: African American GFR (CKD) >90 (>60 ml/min/1.73 sqM); Anion Gap 6 mmol/L; Blood Urea Nitrogen 20 mg/dL (9-20); Calcium 7.8 mg/dL (8.4-10.2); Carbon Dioxide 19 mmol/L (22-30); Chloride 112 mmol/L (98-107); Glucose 122 mg/dL (74-99); Non-African American GFR(CKD) 84 (>60 ml/min/1.73 sqM); Potassium 3.1 mmol/L (3.5-5.1); Sodium 137 mmol/L (137-145)
[2024-03-01 07:07] LABS: Glucose,Whole Blood 130 mg/dL (70-110)
[2024-03-01] MEDS: POTASSIUM BICARBONATE/CIT AC 20 MEQ TABLET.EFF PO ONE (08:52)
--- NOTE | 2024-03-01 09:31 | P.PN ---
Subjective Patient is seen in follow-up for acute kidney injury. Renal function improved. Acidosis also improved with bicarb drip. No vomiting or diarrhea today. Feels hungry and asking for his diet to be advanced. Vital signs are stable. General: No acute distress. HEENT: Head exam is unremarkable. LUNGS: No audible rhonchi or wheezes. HEART: Rate and Rhythm are regular. ABDOMEN: Nontender. EXTREMITITES: No edema. Objective - Vital Signs Vital signs: Vital Signs Temp 97.9 F 03/01/24 06:53 Pulse 66 03/01/24 06:53 Resp 16 03/01/24 06:53 BP 124/70 03/01/24 06:53 Pulse Ox 96 03/01/24 06:53 FiO2 Intake & Output 02/29/24 03/01/24 03/01/24 18:59 06:59 18:59 Other: Voiding Method Toilet Toilet # Voids 1 4 - Labs CBC & Chem 7: 03/01/24 06:04 03/01/24 06:04 Labs: Abnormal Lab Results - Last 24 Hours (Table) 02/29/24 02/29/24 02/29/24 Range/Units 03:04 12:09 14:56 WBC (3.8-10.6) k/uL RBC (4.30-5.90) m/uL Hgb (13.0-17.5) gm/dL Hct (39.0-53.0) % Plt Count (150-450) k/uL VBG pH 7.28 L (7.31-7.41) VBG pCO2 30 L (37-51) mmHg VBG HCO3 14 L (24-28) mmol/L Sodium (137-145) mmol/L Potassium (3.5-5.1) mmol/L Chloride (98-107) mmol/L Carbon Dioxide (22-30) mmol/L BUN (9-20) mg/dL Glucose (74-99) mg/dL POC Glucose (mg/dL) 140 H (70-110) mg/dL Hemoglobin A1c 6.9 H (<=6.0) % Calcium (8.4-10.2) mg/dL 02/29/24 02/29/24 02/29/24 Range/Units 14:56 17:05 20:36 WBC (3.8-10.6) k/uL RBC (4.30-5.90) m/uL Hgb (13.0-17.5) gm/dL Hct (39.0-53.0) % Plt Count (150-450) k/uL VBG pH (7.31-7.41) VBG pCO2 (37-51) mmHg VBG HCO3 (24-28) mmol/L Sodium 134 L (137-145) mmol/L Potassium (3.5-5.1) mmol/L Chloride 112 H (98-107) mmol/L Carbon Dioxide 11 L (22-30) mmol/L BUN 34 H (9-20) mg/dL Glucose 153 H (74-99) mg/dL POC Glucose (mg/dL) 150 H 166 H (70-110) mg/dL Hemoglobin A1c (<=6.0) % Calcium 7.8 L (8.4-10.2) mg/dL 03/01/24 03/01/24 03/01/24 Range/Units 06:04 06:04 06:56 WBC 2.3 L (3.8-10.6) k/uL RBC 3.65 L (4.30-5.90) m/uL Hgb 11.2 L (13.0-17.5) gm/dL Hct 33.7 L (39.0-53.0) % Plt Count 58 L (150-450) k/uL VBG pH (7.31-7.41) VBG pCO2 (37-51) mmHg VBG HCO3 (24-28) mmol/L Sodium (137-145) mmol/L Potassium 3.1 L (3.5-5.1) mmol/L Chloride 112 H (98-107) mmol/L Carbon Dioxide 19 L (22-30) mmol/L BUN (9-20) mg/dL Glucose 122 H (74-99) mg/dL POC Glucose (mg/dL) 130 H (70-110) mg/dL Hemoglobin A1c (<=6.0) % Calcium 7.8 L (8.4-10.2) mg/dL Microbiology - Last 24 Hours (Table) 02/28/24 16:33 Blood Culture - Preliminary Blood 02/28/24 16:30 Blood Culture - Preliminary Blood Assessment and Plan Plan: Assessment: 1. Acute kidney injury secondary to ATN from hypovolemia from vomiting and diar jenny. Creatinine peaked at 1.35 this admission and is down to 0.86 today. UA with multiple hyaline and granular casts suggestive of prerenal state and ATN respectively. 2. Hypokalemia from intracellular shifting from bicarb. 3. Metabolic acidosis secondary to GI losses. Improving with bicarb drip. 4. Diabetes mellitus. 5. Benign hypertension. Controlled. Plan: Stop bicarb drip. Add LR at 50 cc an hour. Replace potassium. Avoid nephrotoxins. Diet per surgery.
[2024-03-01] MEDS: LACTATED RINGERS 1,000 ML IV SCH (10:19)
[2024-03-01 12:15] LABS: Glucose,Whole Blood 143 mg/dL (70-110)
[2024-03-01] MEDS: POTASSIUM CHLORIDE ER 20 MEQ TAB.ER PO ONE (12:50)
--- NOTE | 2024-03-01 14:27 | P.PN ---
Subjective Progress Note Date: 03/01/24 (delayed charting seen at 0830) Patient is a 78-year-old male with a history of ischemic cardiomyopathy, nonsustained V. tach, coronary artery disease status post multiple stents hypertension, dyslipidemia, diabetes mellitus type 2, recent low anterior colon resection in November 2023 scheduled outpatient for diverticulitis, and multiple other comorbid conditions who presented to the ER with complaints of abdominal pain and inability to tolerate oral intake. On arrival to the ER today his vit al signs within normal limits. Laboratory analysis included CBC, coagulation studies, CMP, lactic acid, amylase, and lipase which were remarkable for chloride 110, carbon dioxide 12, anion gap 16, BUN 40, creatinine 1.31 (baseline 0.65), glucose of 205, lactic acid 2.2, bilirubin 1.8, AST 84, ALT 51. Urinalysis was negative. KUB showed a nonobstructive bowel gas pattern gas and fecal material were noted. In the ER he received a dose of Dilaudid 2 L of fluid, and a dose of Zofran. He remained painful and unable to tolerate oral intake and therefore arrangements were made for admission. Surgery was consulted. He was started on IV fluids. His lactic acid normalized but his a acidosis worsened and nephrology was consulted. He was transitioned to Sodium bicarb gtt and had improvement in his acidosis. Patient seen and examined at bedside. Patient seen and examined at bedside. His nausea and abdominal pain are much improved than yesterday. He is hungry and is wanting to eat. He has no other complaints at this time. Vital signs reviewed General: Nontoxic, no distress, appears at stated age Cardiovascular: S1S2 reg, no murmur Lungs: CTA bilateral, no rhonchi, no rales, no accessory muscle use Abdominal: Soft, tender to palpation diffusely, no guarding Ext: No gross muscle atrophy, no edema b/l lower extremities, no contractures Neuro: CN II-XI grossly intact, no focal neuro deficits Psych: Alert, oriented, appropriate affect Assessment/Plan: Intractable abdominal pain- ulcers, vs partial obstruction vs coliting + fecal occult blood Diarrhea, improved off of ferrous sulfate and iron studies normal, will conitnue to hole - Zosyn 3.375 g IVP q 8 hours D#3 - Protonix 40 mg IVP BID - Await further surgery recs: d/w IS MANAGER and consider upper and lower scope - clear liquid diet DIPTI due to ATN from dehydration Nonanion gap metabolic acidosis, hyoerchloremic, improved Lactic Acidosis, resolved -Nephrology note reviewed: Stop bicarb drip at LR at 50 cc/h, replace potassium. Diet per surgery - Hold lisinopril due to DIPTI Ischemic cardiomyopathy, last known ejection fraction 40 to 45% Coronary artery disease Hypertension Dyslipidemia -Aspirin 81 mg daily, Lipitor 80 mg daily, Coreg 12.5 mg twice daily, lisinopril on hold due to DIPTI Diabetes mellitus - hold metformin - hold 70/30 - Sliding scale insulin, Novolog 4 units with meals, Levemir 15 units at night. - A1C 6.9 Anemia, suspect due to fluid resuscitation Thrombocytopenia, chronic and at baseline - Iron studies with Tsat >30% And ferritin >200 -Repeat CBC in a.m. Hypokalemia -Potassium chloride 40 mill equivalents x 1 -Repeat in a.m. Imaging: None new Hospital course imaging: CT abdomen and pelvis: Persistent abdominal fluid in the distal bile possible colitis or diarrhea, no suspicious acute findings otherwise. Data Review: Labs reviewed from today include CBC and basic metabolic profile which are remarkable for white blood cell count 2.3, hemoglobin 11.2, platelets 58, potassium 3.1, chloride 112, carbon dioxide 19. DVT prophylaxis: Lovenox Anticipated discharge date: Pending clinical course Anticipated discharge place: Pending clinical course This dictation was prepared using [employer] voice recognition software. Though every attempt is made to correct errors during dictation some may still exist. Objective - Vital Signs Vital signs: Vital Signs Temp 97.4 F L 03/01/24 12:02 Pulse 63 03/01/24 12:02 Resp 16 03/01/24 12:02 BP 95/56 03/01/24 12:02 Pulse Ox 99 03/01/24 12:02 FiO2 Intake & Output 02/29/24 03/01/24 03/01/24 18:59 06:59 18:59 Other: Voiding Method Toilet Toilet # Voids 1 4 - Labs CBC & Chem 7: 03/01/24 06:04 03/01/24 06:04 Labs: Abnormal Lab Results - Last 24 Hours (Table) 02/29/24 02/29/24 02/29/24 Range/Units 14:56 14:56 17:05 WBC (3.8-10.6) k/uL RBC (4.30-5.90) m/uL Hgb (13.0-17.5) gm/dL Hct (39.0-53.0) % Plt Count (150-450) k/uL VBG pH 7.28 L (7.31-7.41) VBG pCO2 30 L (37-51) mmHg VBG HCO3 14 L (24-28) mmol/L Sodium 134 L (137-145) mmol/L Potassium (3.5-5.1) mmol/L Chloride 112 H (98-107) mmol/L Carbon Dioxide 11 L (22-30) mmol/L BUN 34 H (9-20) mg/dL Glucose 153 H (74-99) mg/dL POC Glucose (mg/dL) 150 H (70-110) mg/dL Calcium 7.8 L (8.4-10.2) mg/dL 02/29/24 03/01/24 03/01/24 Range/Units 20:36 06:04 06:04 WBC 2.3 L (3.8-10.6) k/uL RBC 3.65 L (4.30-5.90) m/uL Hgb 11.2 L (13.0-17.5) gm/dL Hct 33.7 L (39.0-53.0) % Plt Count 58 L (150-450) k/uL VBG pH (7.31-7.41) VBG pCO2 (37-51) mmHg VBG HCO3 (24-28) mmol/L Sodium (137-145) mmol/L Potassium 3.1 L (3.5-5.1) mmol/L Chloride 112 H (98-107) mmol/L Carbon Dioxide 19 L (22-30) mmol/L BUN (9-20) mg/dL Glucose 122 H (74-99) mg/dL POC Glucose (mg/dL) 166 H (70-110) mg/dL Calcium 7.8 L (8.4-10.2) mg/dL 03/01/24 03/01/24 Range/Units 06:56 12:04 WBC (3.8-10.6) k/uL RBC (4.30-5.90) m/uL Hgb (13.0-17.5) gm/dL Hct (39.0-53.0) % Plt Count (150-450) k/uL VBG pH (7.31-7.41) VBG pCO2 (37-51) mmHg VBG HCO3 (24-28) mmol/L Sodium (137-145) mmol/L Potassium (3.5-5.1) mmol/L Chloride (98-107) mmol/L Carbon Dioxide (22-30) mmol/L BUN (9-20) mg/dL Glucose (74-99) mg/dL POC Glucose (mg/dL) 130 H 143 H (70-110) mg/dL Calcium (8.4-10.2) mg/dL Microbiology - Last 24 Hours (Table) 02/28/24 16:33 Blood Culture - Preliminary Blood 02/28/24 16:30 Blood Culture - Preliminary Blood
--- NOTE | 2024-03-01 15:03 | P.PN ---
Subjective Progress Note Date: 03/01/24 CHIEF COMPLAINT: Abdominal pain with diarrhea HISTORY OF PRESENT ILLNESS: Patient complains of chronic diarrhea since colectomy in November. Patient reports stools have been dark. He has had multiple episodes of loose stool. Last episode of diarrhea was yesterday. He does complain of mid upper abdominal discomfort. He does have a known history of peptic ulcer disease. Hemoglobin stable at 11.2. Stool for C. difficile negative. Stool for occult blood positive. Afebrile. WBC 2.3 potassium 3.1 CO2 improved from 11-19. Patient is receiving Imodium. Iron supplement was discontinued. PHYSICAL EXAM: VITAL SIGNS: Reviewed. GENERAL: Well-developed in no acute distress. ABDOMEN: Soft. Distended. Mid upper abdominal tenderness with palpation NEUROLOGIC: Alert and oriented. Cranial nerves II through XII grossly intact. ASSESSMENT: 1. Abdominal pain with diarrhea and black-colored stools 2. History of diverticulitis with colectomy in November 3. History of peptic ulcer disease PLAN: -Patient scheduled for EGD and colonoscopy on with Dr. Quiroz -Advance diet to full liquids -Continue PPI -Continue to hold iron -Continue Imodium for today -Replace potassium Physician Linux Network Engineer note has been reviewed by physician. Signing provider agrees with the documented findings, assessment, and plan of care. Objective - Vital Signs Vital signs: Vital Signs Temp 97.4 F L 03/01/24 12:02 Pulse 63 03/01/24 12:02 Resp 16 03/01/24 12:02 BP 95/56 03/01/24 12:02 Pulse Ox 99 03/01/24 12:02 FiO2 Intake & Output 02/29/24 03/01/24 03/01/24 18:59 06:59 18:59 Other: Voiding Method Toilet Toilet # Voids 1 4 - Labs CBC & Chem 7: 03/01/24 06:04 03/01/24 06:04 Labs: Abnormal Lab Results - Last 24 Hours (Table) 02/29/24 02/29/24 02/29/24 Range/Units 14:56 14:56 17:05 WBC (3.8-10.6) k/uL RBC (4.30-5.90) m/uL Hgb (13.0-17.5) gm/dL Hct (39.0-53.0) % Plt Count (150-450) k/uL VBG pH 7.28 L (7.31-7.41) VBG pCO2 30 L (37-51) mmHg VBG HCO3 14 L (24-28) mmol/L Sodium 134 L (137-145) mmol/L Potassium (3.5-5.1) mmol/L Chloride 112 H (98-107) mmol/L Carbon Dioxide 11 L (22-30) mmol/L BUN 34 H (9-20) mg/dL Glucose 153 H (74-99) mg/dL POC Glucose (mg/dL) 150 H (70-110) mg/dL Calcium 7.8 L (8.4-10.2) mg/dL 02/29/24 03/01/24 03/01/24 Range/Units 20:36 06:04 06:04 WBC 2.3 L (3.8-10.6) k/uL RBC 3.65 L (4.30-5.90) m/uL Hgb 11.2 L (13.0-17.5) gm/dL Hct 33.7 L (39.0-53.0) % Plt Count 58 L (150-450) k/uL VBG pH (7.31-7.41) VBG pCO2 (37-51) mmHg VBG HCO3 (24-28) mmol/L Sodium (137-145) mmol/L Potassium 3.1 L (3.5-5.1) mmol/L Chloride 112 H (98-107) mmol/L Carbon Dioxide 19 L (22-30) mmol/L BUN (9-20) mg/dL Glucose 122 H (74-99) mg/dL POC Glucose (mg/dL) 166 H (70-110) mg/dL Calcium 7.8 L (8.4-10.2) mg/dL 03/01/24 03/01/24 Range/Units 06:56 12:04 WBC (3.8-10.6) k/uL RBC (4.30-5.90) m/uL Hgb (13.0-17.5) gm/dL Hct (39.0-53.0) % Plt Count (150-450) k/uL VBG pH (7.31-7.41) VBG pCO2 (37-51) mmHg VBG HCO3 (24-28) mmol/L Sodium (137-145) mmol/L Potassium (3.5-5.1) mmol/L Chloride (98-107) mmol/L Carbon Dioxide (22-30) mmol/L BUN (9-20) mg/dL Glucose (74-99) mg/dL POC Glucose (mg/dL) 130 H 143 H (70-110) mg/dL Calcium (8.4-10.2) mg/dL Microbiology - Last 24 Hours (Table) 02/28/24 16:33 Blood Culture - Preliminary Blood 02/28/24 16:30 Blood Culture - Preliminary Blood
[2024-03-01 17:09] LABS: Glucose,Whole Blood 176 mg/dL (70-110)
[2024-03-01 20:21] LABS: Glucose,Whole Blood 141 mg/dL (70-110)
[2024-03-02 07:25] LABS: Glucose,Whole Blood 107 mg/dL (70-110)
[2024-03-02 07:43] VITALS: BP 124/61; PULSE 55; RESP 17; TEMP 98.4
--- NOTE | 2024-03-02 10:07 | P.PN ---
Subjective Patient is seen in follow-up for acute kidney injury. Renal function improved. Acidosis also improved with bicarb drip. Now on LR. No vomiting or diarrhea today. Tolerating oral intake. Vital signs are stable. General: No acute distress. HEENT: Head exam is unremarkable. LUNGS: No audible rhonchi or wheezes. HEART: Rate and Rhythm are regular. ABDOMEN: Nontender. EXTREMITITES: No edema. Objective - Vital Signs Vital signs: Vital Signs Temp 98.4 F 03/02/24 07:26 Pulse 55 L 03/02/24 07:26 Resp 17 03/02/24 07:26 BP 124/61 03/02/24 07:26 Pulse Ox 98 03/02/24 07:26 FiO2 Intake & Output 03/01/24 03/02/24 03/02/24 18:59 06:59 18:59 Intake Total 500 Balance 500 Intake: Intake, IV Titration 500 Amount Lactated Ringers 1,000 ml 500 @ 50 mls/hr IV .Q20H [facility] Rx#:[id number] Other: Voiding Method Toilet # Voids 3 5 # Bowel Movements 1 4 - Labs CBC & Chem 7: 03/01/24 06:04 03/01/24 06:04 Labs: Abnormal Lab Results - Last 24 Hours (Table) 03/01/24 03/01/24 03/01/24 Range/Units 12:04 17:07 20:19 POC Glucose (mg/dL) 143 H 176 H 141 H (70-110) mg/dL Microbiology - Last 24 Hours (Table) 02/28/24 16:33 Blood Culture - Preliminary Blood 02/28/24 16:30 Blood Culture - Preliminary Blood Assessment and Plan Plan: Assessment: 1. Acute kidney injury secondary to ATN from hypovolemia from vomiting and diarrhea. Creatinine peaked at 1.35 this admission and is down to 0.86 yesterday. UA with multiple hyaline and granular casts suggestive of prerenal state and ATN respectively. 2. Hypokalemia from intracellular shifting from bicarb. Replaced. 3. Metabolic acidosis secondary to GI losses. Improved with bicarb drip. 4. Diabetes mellitus. 5. Benign hypertension. Controlled. Plan: Maintain gentle IV hydration. Morning labs pending. Avoid nephrotoxins. Diet per surgery. Repeat BMP and magnesium level 2 to 3 days postdischarge. Follow-up outpatient in 1 week.
[2024-03-02 10:59] LABS: HCT 32.3 % (39.6-50.0); Immature Platelet Fraction 4.4 % (1.1-6.1); MCH 30.6 pg (27.0-32.0); MCHC 34.1 g/dL (32.0-37.0); MCV 89.7 FL (80.0-97.0); Mean Platelet Volume 10.3 FL (9.5-12.2); NRBC Per 100 WBC 0 X 10*3/uL (0.00-0.01); Platelet Count 52 X 10*3/uL (140-440); RDW 13.8 % (11.5-14.5)
[2024-03-02 11:01] LABS: BUN/Creat Ratio 13.38 Ratio (12.00-20.00); Blood Urea Nitrogen 10.7 mg/dL (9.0-27.0); Calcium 8.2 mg/dL (8.7-10.3); Carbon Dioxide 22.1 mmol/L (21.6-31.8); Chloride 107 mmol/L (96-109); Glucose 101 mg/dL (70-110); Magnesium 2.2 mg/dL (1.5-2.4); Potassium 3.5 mmol/L (3.5-5.5); Sodium 136 mmol/L (135-145)
--- NOTE | 2024-03-02 11:34 | P.DS ---
Providers Date of admission: 02/28/24 16:15 Expected date of discharge: 03/02/24 Attending physician: aMrli Boswell DO Consults: 02/29/24 08:17 Consult Physician Routine Consulting Provider: Mona Fuentes Consult Reason/Comments: Metabolic acidosis, diarrhea Do you want consulting provider notified?: Yes 03/01/24 07:59 Consult Physician Routine Consulting Provider: Julien Quiroz Consult Reason/Comments: diverticulitis Do you want consulting provider notified?: Already Contacted Primary care physician: [facility] Course: Discharge Diagnosis: Intractable abdominal pain with nausea and diarrhea, suspect probable ulcers Melena Acute kidney injury due to ATN from dehydration Nonanion gap metabolic acidosis, hyperchloremic, improved Lactic Acidosis, resolved Ischemic cardiomyopathy, last known ejection fraction 40 to 45% Coronary artery disease Hypertension Dyslipidemia Diabetes mellitus Anemia, suspect due to fluid resuscitation Thrombocytopenia, chronic and at baseline Hypokalemia Hospital Course: Patient is a 78-year-old male with a history of ischemic cardiomyopathy, nonsustained V. tach, coronary artery disease status post multiple stents hypertension, dyslipidemia, diabetes mellitus type 2, recent low anterior colon resection in November 2023 scheduled outpatient for diverticulitis, and multiple other comorbid conditions who presented to the ER with complaints of abdominal pain and inability to tolerate oral intake. On arrival to the ER today his vital signs within normal limits. Laboratory analysis included CBC, coagulation studies, CMP, lactic acid, amylase, and lipase which were remarkable for chloride 110, carbon dioxide 12, anion gap 16, BUN 40, creatinine 1.31 (baseline 0.65), glucose of 205, lactic acid 2.2, bilirubin 1.8, AST 84, ALT 51. Urinalysis was negative. KUB showed a nonobstructive bowel gas pattern gas and fecal material were noted. In the ER he received a dose of Dilaudid 2 L of fluid, and a dose of Zofran. He remained painful and unable to tolerate oral intake and therefore arrangements were made for admission. Surgery was consulted. He was started on IV fluids. His lactic acid normalized but his a acidosis worsened and nephrology was consulted. He was transitioned to Sodium bicarb gtt and had improvement in his acidosis. He continued to do well. His diarrhea improved. His abdominal improved pain improved. He was tolerating a regular diet. He was seen by surgery who recommended EGD and colonoscopy which could not be completed until 411 and they stated this could be done in the outpatient setting. His hemoglobin remained stable. Iron studies were normal and he was determined stable for discharge home off of oral iron. Follow-up: Patient was started on Protonix oral 40 mg twice daily for probable gastric ulcer, he will follow-up with Dr. Hatch on 03/04/2024 for upper and lower endoscopies, he will follow-up with Dr. Ayala in 1 week, he will have repeat basic metabolic profile in 3 days, he will follow-up with Dr. Rush in 1 to 2 days. Patient seen and examined at bedside. Doing well. Abdominal pain well-c ontrolled. Tolerating a diet. No nausea. No chest pain or shortness of breath. No other complaints currently. Vital signs reviewed and stable. General: Nontoxic, no distress, appears at stated age Cardiovascular: S1S2 reg, no murmur, positive posterior tibial pulse bilateral, Lungs: CTA bilateral, no rhonchi, no rales, no accessory muscle use Abdominal: Soft, nontender to palpation, no guarding, no appreciable organomegaly Ext: No gross muscle atrophy, no edema b/l lower extremities, no contractures Neuro: CN II-XI grossly intact, no focal neuro deficits Psych: Alert, oriented, appropriate affect A total of 40 minutes of time were spent preparing this complex discharge summary. Patient was discharged on 03/02/24. This dictation was prepared using [employer] voice recognition software. Though every attempt is made to correct errors during dictation some may still exist. Patient Condition at Discharge: Stable Plan - Discharge Summary New Discharge Prescriptions: New Pantoprazole Sodium [Protonix] 40 mg PO AC-BID #60 tab Continue metFORMIN HCL [Glucophage] 1,000 mg PO BID allopurinoL [Zyloprim] 100 mg PO DAILY carvediloL [Coreg] 12.5 mg PO BID lisinopriL [Zestril] 2.5 mg PO DAILY Insulin NPH Hum/Reg Insulin Hm [NovoLIN 70-30 100 Unit/ml Vial] 30 unit SQ BID@0800,1700 Acetaminophen Tab [Tylenol] 500 mg PO Q6H PRN #40 tablet PRN Reason: Pain Nitroglycerin Sl Tabs [Nitrostat] 0.4 mg SL Q5M PRN PRN Reason: Chest Pain Aspirin EC [Ecotrin Low Dose] 81 mg PO DAILY Atorvastatin [Lipitor] 80 mg PO DAILY Albuterol Inhaler [Ventolin Hfa Inhaler] 2 puff INHALATION RT-Q4H PRN PRN Reason: Shortness Of Breath Ondansetron Odt [Zofran ODT] 4 mg PO Q8HR PRN #10 tab PRN Reason: Nausea Amoxic-Pot Clav 875-125Mg [Augmentin 875-125] 1 tab PO Q12HR 3 Days #14 tab Discontinued Ferrous Sulfate [Iron (65 MG Elemental)] 325 mg PO DAILY Magnesium Oxide [Mag-Ox] 250 mg PO DAILY Discharge Medication List metFORMIN HCL [Glucophage] 1,000 mg PO BID 06/07/14 [History] Nitroglycerin Sl Tabs [Nitrostat] 0.4 mg SL Q5M PRN 07/17/21 [History] allopurinoL [Zyloprim] 100 mg PO DAILY 07/17/21 [History] carvediloL [Coreg] 12.5 mg PO BID 11/27/21 [History] Aspirin EC [Ecotrin Low Dose] 81 mg PO DAILY 02/10/22 [History] lisinopriL [Zestril] 2.5 mg PO DAILY 02/10/22 [History] Atorvastatin [Lipitor] 80 mg PO DAILY 03/07/22 [History] Albuterol Inhaler [Ventolin Hfa Inhaler] 2 puff INHALATION RT-Q4H PRN 07/22/23 [History] Insulin NPH Hum/Reg Insulin Hm [NovoLIN 70-30 100 Unit/ml Vial] 30 unit SQ BID@0800,1700 10/16/23 [History] Acetaminophen Tab [Tylenol] 500 mg PO Q6H PRN #40 tablet 02/26/24 [Rx] Ondansetron Odt [Zofran ODT] 4 mg PO Q8HR PRN #10 tab 02/26/24 [Rx] Amoxic-Pot Clav 875-125Mg [Augmentin 875-125] 1 tab PO Q12HR 3 Days #14 tab 03/02/24 [Rx] Pantoprazole Sodium [Protonix] 40 mg PO AC-BID #60 tab 03/02/24 [Rx] Follow up Appointment(s)/Referral(s): Conor Ayala DO [STAFF PHYSICIAN] - 1 Week Carrie Bains MD [Primary Care Provider] - 1-2 days Julien Quiroz MD [STAFF PHYSICIAN] - 1 Week (for scope on 03/04/24) Ambulatory/Diagnostic Orders: Basic Metabolic Panel [LAB.AMB] Time Frame: 3 Days, Location: None Selected Patient Instructions/Handouts: Pantoprazole (By mouth) Activity/Diet/Wound Care/Special Instructions: Activity: As tolerated Diet: Carb consistent Special Instructions: Blood work in in 3 days. Check Blood sugar twice daily at home.
--- NOTE | 2024-03-02 11:56 | P.PN ---
Subjective Progress Note Date: 03/02/24 CHIEF COMPLAINT: Abdominal pain with diarrhea HISTORY OF PRESENT ILLNESS: Patient reports his diarrhea has improved. Denies any abdominal pain. He is tolerating regular diet. He is no longer having maren k stools. Hemoglobin remained stable at 11. Patient would like to do his endoscopy as outpatient. PHYSICAL EXAM: VITAL SIGNS: Reviewed. GENERAL: Well-developed in no acute distress. ABDOMEN: Soft. Nontender nondistended NEUROLOGIC: Alert and oriented. Cranial nerves II through XII grossly intact. ASSESSMENT: 1. Abdominal pain with diarrhea and black-colored stools improved 2. History of diverticulitis with colectomy in November 3. History of peptic ulcer disease PLAN: -Patient can be discharged from surgical standpoint. -Patient scheduled for EGD and colonoscopy outpatient on , 03/04/[address] Quiroz -Continue PPI -Agree with holding iron Physician Ceramic Painter note has been reviewed by physician. Signing provider agrees with the documented findings, assessment, and plan of care. Objective - Vital Signs Vital signs: Vital Signs Temp 98.4 F 03/02/24 07:26 Pulse 55 L 03/02/24 07:26 Resp 17 03/02/24 07:26 BP 124/61 03/02/24 07:26 Pulse Ox 98 03/02/24 07:26 FiO2 Intake & Output 03/01/24 03/02/24 03/02/24 18:59 06:59 18:59 Intake Total 500 Balance 500 Intake: Intake, IV Titration 500 Amount Lactated Ringers 1,000 ml 500 @ 50 mls/hr IV .Q20H [facility] Rx#:[id number] Other: Voiding Method Toilet # Voids 3 5 1 # Bowel Movements 1 4 - Labs CBC & Chem 7: 03/02/24 06:40 03/02/24 06:40 Labs: Abnormal Lab Results - Last 24 Hours (Table) 03/01/24 03/01/24 03/01/24 Range/Units 12:04 17:07 20:19 WBC (4.50-10.00) X 10*3/uL RBC (4.40-5.60) X 10*6/uL Hgb (13.0-17.0) g/dL Hct (39.6-50.0) % Plt Count (140-440) X 10*3/uL POC Glucose (mg/dL) 143 H 176 H 141 H (70-110) mg/dL Calcium (8.7-10.3) mg/dL 03/02/24 03/02/24 Range/Units 06:40 06:40 WBC 2.30 L (4.50-10.00) X 10*3/uL RBC 3.60 L (4.40-5.60) X 10*6/uL Hgb 11.0 L (13.0-17.0) g/dL Hct 32.3 L (39.6-50.0) % Plt Count 52 L (140-440) X 10*3/uL POC Glucose (mg/dL) (70-110) mg/dL Calcium 8.2 L (8.7-10.3) mg/dL Microbiology - Last 24 Hours (Table) 02/28/24 16:33 Blood Culture - Preliminary Blood 02/28/24 16:30 Blood Culture - Preliminary Blood
[2024-03-02 11:57] LABS: Glucose,Whole Blood 149 mg/dL (70-110)
== END 2024-03-02 12:29 | disposition home or self-care (01) | DRG 377 ==
LOC: EC 13:36 → 5NMEDONC 16:15
PROVIDERS: ADMIT Internal Medicine; ATTEND Internal Medicine
DX: K27.4 Chronic or unspecified peptic ulcer, site unspecified, with hemorrhage (principal); N17.0 Acute kidney failure with tubular necrosis; I50.22 Chronic systolic (congestive) heart failure; I47.10 Supraventricular tachycardia, unspecified; E87.20 Acidosis, unspecified; D64.9 Anemia, unspecified; D69.6 Thrombocytopenia, unspecified; E78.5 Hyperlipidemia, unspecified; E86.1 Hypovolemia; E87.8 Other disorders of electrolyte and fluid balance, not elsewhere classified; R63.0 Anorexia; I11.0 Hypertensive heart disease with heart failure; M10.9 Gout, unspecified; J44.9 Chronic obstructive pulmonary disease, unspecified; K21.9 Gastro-esophageal reflux disease without esophagitis; E11.9 Type 2 diabetes mellitus without complications; I25.5 Ischemic cardiomyopathy; H93.13 Tinnitus, bilateral; I25.10 Atherosclerotic heart disease of native coronary artery without angina pectoris; E87.6 Hypokalemia; E86.0 Dehydration; I25.2 Old myocardial infarction; Z68.34 Body mass index [BMI] 34.0-34.9, adult; Z87.01 Personal history of pneumonia (recurrent); Z87.11 Personal history of peptic ulcer disease; Z95.5 Presence of coronary angioplasty implant and graft; Z96.653 Presence of artificial knee joint, bilateral; Z90.49 Acquired absence of other specified parts of digestive tract; Z79.4 Long term (current) use of insulin; Z79.84 Long term (current) use of oral hypoglycemic drugs; Z87.891 Personal history of nicotine dependence; Z79.82 Long term (current) use of aspirin; Z87.442 Personal history of urinary calculi
CPT/HCPCS: 36415; 74018; 74176; 80048; 80053; 81001; 82150; 82272; 82728; 82803; 83036; 83540; 83550; 83605; 83690; 83735; 85025; 85027; 85610; 85730; 87040; 87324; 96361; 96374; 96375; 99285

== ENCOUNTER 2024-03-15 09:46 | Day surgery (SDC) | payer MEDICARE ==
[~2024-03-15 09:46] MED LIST changes: -ACETAMINOPHEN TAB 500 MG TAB PO PRN; +DEXAMETHASONE SOD PHOSPHATE 4 MG/ML 1 ML VIAL IV ONE; -HEPARIN SODIUM,PORCINE 5,000 UNIT/ML 1 ML VIAL SQ PRN; +HYDROmorphone 0.5 MG/0.5 ML SYRINGE IVP PRN; +MIDAZOLAM 2 MG/2 ML VIAL IV PRN; +ONDANSETRON 4 MG/2 ML VIAL IVP ONE; -metroNIDAZOLE-NS PMX 500 MG in SALINE 1 100ML.BAG IVPB PRN
[2024-03-15] MEDS: LACTATED RINGERS 1,000 ML IV SCH (10:03)
[2024-03-15] MEDS: SODIUM CHLORIDE 0.9% 500 ML 500 ML IV ONE (10:13)
[2024-03-15 10:29] LABS: Glucose,Whole Blood 169 mg/dL (70-110)
[2024-03-15 10:37] VITALS: TEMP 97.1
[2024-03-15] MEDS ORDERED: PROPOFOL 10 MG/ML 20 ML VIAL IV ONE (11:33)
[2024-03-15] MEDS ORDERED: LIDOCAINE 1% INJ 10MG/ML (20 ML MDV) ONE (11:33)
--- NOTE | 2024-03-15 11:40 | P.GSHP ---
History of Present Illness H&P Date: 03/15/24 Chief Complaint: GERD, diverticulitis this a 78-year-old male with history of diverticulitis and GERD. Patient presents safer EGD and colonoscopy. Past Medical History Past Medical History: Coronary Artery Disease (CAD), Chest Pain / Angina, Heart Failure, COPD, Diabetes Mellitus, GERD/Reflux, Hearing Disorder / Deafness, Hyperlipidemia, Hypertension, Myocardial Infarction (DE), Pneumonia, Supraventricular Tachycardia (SVT), Vascular Disorder Additional Past Medical History / Comment(s): Stomach pain, recent hospitalization for diverticulitis. Ischemic CMP, nonsustained ventriclar arrhythmia, systolic heart failure, DE x 2 in 2001, 1994, kidney stones, gout bilateral feet/ toes, hx bilat tinnitis, stomach ulcers 2020 Last Myocardial Infarction Date:: 2001 History of Any Multi-Drug Resistant Organisms: None Reported Past Surgical History: Bowel Resection, Cardiac Ablation, Cholecystectomy, Heart Catheterization, Heart Catheterization With Stent, Joint Replacement, Orthopedic Surgery Additional Past Surgical History / Comment(s): PCIs with total 6 stents per patient, cardiac ablation-AVRNT, EPS, R caratid stent, R knee arthroscopy, bilateral total knee replacements x2-L side became infected-had I&D, bilateral shoulder rotator cuff surgeries with R side done 3 times, L ankle surgery, bilateral carpal tunnel releases, colonoscopy. EGD lft shoulder x1. Low anterior partial colon resection Nov 2023. Past Anesthesia/Blood Transfusion Reactions: No Reported Reaction Additional Past Anesthesia/Blood Transfusion Reaction / Comment(s): never had a blood tranfusion Date of Last Stent Placement:: 02/05/19 Smoking Status: Former smoker - Past Family History Father History Unknown: Yes Additional Family Medical History / Comment(s): Pt does not know his father's history. His parents were when he was 6 yrs old. Mother History Unknown: Yes Family Medical History: Cancer Additional Family Medical History / Comment(s): Pt states mother had some form of cancer which she from at the age of 77yrs. Medications and Allergies Home Medications Medication Instructions Recorded Confirmed Type metFORMIN HCL [Glucophage] 1,000 mg PO BID 06/07/14 03/15/24 History Nitroglycerin Sl Tabs [Nitrostat] 0.4 mg SL Q5M PRN 07/17/21 03/15/24 History allopurinoL [Zyloprim] 100 mg PO QAM 07/17/21 03/15/24 History carvediloL [Coreg] 12.5 mg PO BID 11/27/21 03/15/24 History Aspirin EC [Ecotrin Low Dose] 81 mg PO QAM 02/10/22 03/15/24 History lisinopriL [Zestril] 2.5 mg PO QAM 02/10/22 03/15/24 History Atorvastatin [Lipitor] 80 mg PO QAM 03/07/22 03/15/24 History Albuterol Inhaler [Ventolin Hfa 2 puff INHALATION RT-Q4H PRN 07/22/23 03/15/24 History Inhaler] Insulin NPH Hum/Reg Insulin Hm 30 unit SQ BID@0800,1700 10/16/23 03/15/24 History [NovoLIN 70-30 100 Unit/ml Vial] Acetaminophen Tab [Tylenol] 500 mg PO Q6H PRN #40 tablet 02/26/24 03/15/24 Rx Ondansetron Odt [Zofran ODT] 4 mg PO Q8HR PRN #10 tab 02/26/24 03/15/24 Rx Ferrous Sulfate [Iron (65 MG 325 mg PO QAM 03/12/24 03/15/24 History Elemental)] Magnesium 250 mg PO QAM 03/12/24 03/15/24 History Allergies Allergy/AdvReac Type Severity Reaction Status Date / Time No Known Allergies Allergy Verified 03/15/24 10:03 Surgical - Exam Vital Signs Temp Pulse Resp BP Pulse Ox 97.1 F L 66 20 129/60 98 03/15/24 10:14 03/15/24 10:14 03/15/24 10:14 03/15/24 10:14 03/15/24 10:14 - General well developed, well nourished, no distress - Eyes PERRL - ENT normal pinna - Neck no masses - Respiratory normal expansion - Cardiovascular Rhythm: regular - Abdomen Abdomen: soft, non tender Results - Labs Abnormal Lab Results - Last 24 Hours (Table) 03/15/24 Range/Units 10:25 POC Glucose (mg/dL) 169 H (70-110) mg/dL Assessment and Plan Assessment: GERD, diverticula is. We'll perform EGD and colonoscopy.
--- NOTE | 2024-03-15 11:56 | P.OP ---
Date of Procedure: 03/15/24 Preoperative Diagnosis: GERD Diverticulitis Postoperative Diagnosis: antral gastritis Mild esophagitis Mild diverticulosis Procedure(s) Performed: colonoscopy Anesthesia: MAC Surgeon: Julien Quiroz Pathology: other (antrum, esophagus) Condition: stable Disposition: PACU Description of Procedure: the patient was placed on the endoscopy table in the lateral position. He received IV sedation. The gastric scope was placed oropharynx passed in the esophagus and stomach. Scope was placed through the pylorus. The first and second portion of the duodenum appeared normal. The scope was then brought back the antrum this was mildly inflamed. A biopsies performed. The scope was then retroflexed and the remainder the stomach appeared normal. The GE junction was at 40 cm the distal esophagus appeared inflamed. The proximal esophagus appeared normal. Scope withdrawn for patient. Next digital rectal exam was performed. this revealed no abnormalities. The flexible colonoscope was then placed the patient's anus and passed throughout the entire colon. The ileocecal valve was visualized. The cecum, ascending and transverse colon appeared normal. In the descending and sigmoid colon was a few scattered diverticuli. Scope was then brought back the rectum and this appeared normal. Scope withdrawn for patient.
[2024-03-15 12:10] VITALS: RESP 16
[2024-03-15 12:13] LABS: Glucose,Whole Blood 133 mg/dL (70-110)
[2024-03-15 12:54] VITALS: BP 105/63; PULSE 57
== END 2024-03-15 12:55 | disposition home or self-care (01) ==
LOC: ORWHC2ENDO 09:46
PROVIDERS: ATTEND Surgery
DX: K21.00 Gastro-esophageal reflux disease with esophagitis, without bleeding (principal); K29.50 Unspecified chronic gastritis without bleeding; K57.30 Diverticulosis of large intestine without perforation or abscess without bleeding; I25.10 Atherosclerotic heart disease of native coronary artery without angina pectoris; J44.9 Chronic obstructive pulmonary disease, unspecified; E11.9 Type 2 diabetes mellitus without complications; I11.0 Hypertensive heart disease with heart failure; I50.9 Heart failure, unspecified; I25.2 Old myocardial infarction; Z87.442 Personal history of urinary calculi; Z90.49 Acquired absence of other specified parts of digestive tract; Z95.5 Presence of coronary angioplasty implant and graft; Z87.891 Personal history of nicotine dependence; Z79.84 Long term (current) use of oral hypoglycemic drugs; Z79.899 Other long term (current) drug therapy; Z79.51 Long term (current) use of inhaled steroids; Z79.82 Long term (current) use of aspirin; Z79.4 Long term (current) use of insulin; Z98.890 Other specified postprocedural states
CPT/HCPCS: 45378; 43239; J2001; J2704; 88305

== ENCOUNTER 2024-05-08 18:11 | Inpatient (IN) | payer MEDICARE ==
--- NOTE | 2024-05-08 19:00 | ED ---
General Adult HPI - General Chief complaint: Abdominal Pain Stated complaint: abdominal pain Time Seen by Provider: 05/08/24 18:17 Source: patient, EMS, RN notes reviewed, old records reviewed Mode of arrival: EMS - History of Present Illness Initial comments: 78 male presenting with generalized abdominal pain and fever. Symptoms began in the past 24 to 48 hours. Patient has previous history of diverticulitis status post resection. Patient states he has had diarrhea which is a chronic issue for him. No vomiting. Patient does endorse sore throat and cough as well. - Related Data Home Medications Medication Instructions Recorded Confirmed metFORMIN HCL [Glucophage] 1,000 mg PO BID 06/07/14 05/09/24 Nitroglycerin Sl Tabs [Nitrostat] 0.4 mg SL Q5M PRN 07/17/21 05/09/24 allopurinoL [Zyloprim] 100 mg PO DAILY 07/17/21 05/09/24 carvediloL [Coreg] 12.5 mg PO BID 11/27/21 05/09/24 Aspirin EC [Ecotrin Low Dose] 81 mg PO DAILY 02/10/22 05/09/24 lisinopriL [Zestril] 2.5 mg PO DAILY 02/10/22 05/09/24 Atorvastatin [Lipitor] 80 mg PO DAILY 03/07/22 05/09/24 Albuterol Inhaler [Ventolin Hfa 2 puff INHALATION RT-Q4H PRN 07/22/23 05/09/24 Inhaler] Insulin NPH Hum/Reg Insulin Hm 30 unit SQ BID@0800,1700 10/16/23 05/09/24 [NovoLIN 70-30 100 Unit/ml Vial] Ferrous Sulfate [Iron (65 MG 325 mg PO DAILY 03/12/24 05/09/24 Elemental)] Magnesium 250 mg PO DAILY 03/12/24 05/09/24 Acetaminophen Tab [Tylenol] 500 - 1,000 mg PO Q6H PRN MDD 8 05/09/24 05/09/24 TABS Previous Rx's Medication Instructions Recorded Ondansetron Odt [Zofran ODT] 4 mg PO Q8HR PRN #10 tab 02/26/24 Allergies Allergy/AdvReac Type Severity Reaction Status Date / Time No Known Allergies Allergy Verified 03/15/24 10:03 Review of Systems ROS Statement: Those systems with pertinent positive or pertinent negative responses have been documented in the HPI. ROS Other: All systems not noted in ROS Statement are negative. Past Medical History Past Medical History: Coronary Artery Disease (CAD), Chest Pain / Angina, Heart Failure, COPD, Diabetes Mellitus, GERD/Reflux, Hearing Disorder / Deafness, Hyperlipidemia, Hypertension, Myocardial Infarction ([place]), Pneumonia, Supraventricular Tachycardia (SVT), Vascular Disorder Additional Past Medical History / Comment(s): Stomach pain, recent hospitalization for diverticulitis. Ischemic CMP, nonsustained ventriclar arrhythmia, systolic heart failure, [place] x 2 in 2001, 1994, kidney stones, gout bilateral feet/ toes, hx bilat tinnitis, stomach ulcers 2020 Last Myocardial Infarction Date:: 2001 History of Any Multi-Drug Resistant Organisms: None Reported Past Surgical History: Bowel Resection, Cardiac Ablation, Cholecystectomy, Heart Catheterization, Heart Catheterization With Stent, Joint Replacement, Orthopedic Surgery Additional Past Surgical History / Comment(s): PCIs with total 6 stents per patient, cardiac ablation-AVRNT, EPS, R caratid stent, R knee arthroscopy, bilateral total knee replacements x2-L side became infected-had I&D, bilateral shoulder rotator cuff surgeries with R side done 3 times, L ankle surgery, bilateral carpal tunnel releases, colonoscopy. EGD lft shoulder x1. Low anterior partial colon resection Nov 2023. Past Anesthesia/Blood Transfusion Reactions: No Reported Reaction Additional Past Anesthesia/Blood Transfusion Reaction / Comment(s): never had a blood tranfusion Date of Last Stent Placement:: 02/05/19 Past Psychological History: No Psychological Hx Reported Smoking Status: Former smoker - Past Family History Father History Unknown: Yes Additional Family Medical History / Comment(s): Pt does not know his father's history. His parents were when he was 6 yrs old. Mother History Unknown: Yes Family Medical History: Cancer Additional Family Medical History / Comment(s): Pt states mother had some form of cancer which she from at the age of 77yrs. General Exam General appearance: alert, in no apparent distress Head exam: Present: atraumatic, normocephalic Eye exam: Present: normal appearance, PERRL ENT exam: Present: normal exam Neck exam: Present: normal inspection. Absent: tenderness Respiratory exam: Present: normal lung sounds bilaterally. Absent: respiratory distress, wheezes Cardiovascular Exam: Present: regular rate, normal rhythm GI/Abdominal exam: Present: soft, distended, tenderness Extremities exam: Present: normal inspection, full ROM. Absent: tenderness Neurological exam: Present: alert, oriented X3 Psychiatric exam: Present: normal affect, normal mood Skin exam: Present: warm, dry, intact Course Vital Signs 05/08/24 05/08/24 05/09/24 18:12 23:06 00:49 Temperature 103 F H 98.0 F Pulse Rate 87 79 78 Respiratory 18 17 18 Rate Blood Pressure 133/59 102/44 108/47 O2 Sat by Pulse 95 97 95 Oximetry 05/09/24 05/09/24 05:43 07:25 Temperature 101.8 F H 101.2 F H Pulse Rate 87 Respiratory 17 Rate Blood Pressure 130/60 O2 Sat by Pulse 97 Oximetry Medical Decision Making - Medical Decision Making Was pt. sent in by a medical professional or institution (MARTIN Mcadams, FORECLOSURE SPECIALIST, urgent care, hospital, or detention...) When possible be specific @ -[No] Did you speak to anyone other than the patient for history (EMS, parent, family, police, friend...)? What history was obtained from this source @ -[No] Did you review nursing and triage notes (agree or disagree)? Why? @ -[I reviewed and agree with nursing and triage notes] Were old charts reviewed (outside hosp., previous admission, EMS record, old EKG, old radiological studies, urgent care reports/EKG's, detention records)? Report findings @ -[No old charts were reviewed] Differential abdominal pain admitted EKG interpreted by me (3pts min.). @ -[As above] X-rays interpreted by me (1pt min.). @ -Abdominal x-ray negative for acute process. CT interpreted by me (1pt min.). @ -CT abdomen ordered, results pending U/S interpreted by me (1pt. min.). @ -[None done] What testing was considered but not performed or refused? (CT, X-rays, U/S, labs)? Why? @ -[None] What meds were considered but not given or refused? Why? @ -[None] Did you discuss the management of the patient with other professionals (professionals i.e. MARTIN Mcadams, FORECLOSURE SPECIALIST, lab, RT, psych nurse, pediatric social worker, barrel roller operator, teacher, plant protection officer, egg caser)? Give summary @ -[No] Was smoking cessation discussed for >3mins.? @ -[No] Was critical care preformed (if so, how long)? @ -[No] Were there social determinants of health that impacted care today? How? (Homelessness, low income, unemployed, alcoholism, drug addiction, transportation, low edu. Level, literacy, decrease access to med. care, group home, rehab)? @ -[No] Was there de-escalation of care discussed even if they declined (Discuss DNR or withdrawal of care, Hospice)? DNR status @ -[No] What co-morbidities impacted this encounter? (DM, HTN, Smoking, COPD, CAD, Cancer, CVA, ARF, Chemo, Hep., AIDS, mental health diagnosis, sleep apnea, morbid obesity)? @Status post colectomy, history of diverticulitis chronic diarrhea Was patient admitted / discharged? Hospital course, mention meds given and route, prescriptions, significant lab abnormalities, going to OR and other pertinent info. @ -[Care signed out at shift change awaiting laboratory testing and CT imaging. Dr. Stone - Lab Data Result diagrams: 05/11/24 06:34 05/11/24 06:34 Lab Results 05/08/24 05/08/24 05/08/24 Range/Units 18:58 18:58 18:58 WBC 6.7 (3.8-10.6) k/uL RBC 4.08 L (4.30-5.90) m/uL Hgb 12.5 L (13.0-17.5) gm/dL Hct 38.9 L (39.0-53.0) % MCV 95.5 (80.0-100.0) fL MCH 30.8 (25.0-35.0) pg MCHC 32.2 (31.0-37.0) g/dL RDW 15.0 (11.5-15.5) % Plt Count 68 L (150-450) k/uL Estimated Plt Count (Adequate) MPV 8.5 Immature Gran % (Auto) % Absolute Nucleated RBC % Neutrophils % 83 % Lymphocytes % 9 % Monocytes % 6 % Eosinophils % 1 % Basophils % 0 % Immature Gran # (0.00-0.04) X 10*3/uL Neutrophils # 5.6 (1.3-7.7) k/uL Lymphocytes # 0.6 L (1.0-4.8) k/uL Monocytes # 0.4 (0-1.0) k/uL Eosinophils # 0.1 (0-0.7) k/uL Basophils # 0.0 (0-0.2) k/uL NRBC/100 WBC Diff (0.00-0.01) X 10*3/uL Manual Slide Review Immature Plt Fraction (1.1-6.1) % RBC Morphology (Normal) PT 12.2 (10.0-12.5) sec INR 1.1 (<1.2) APTT 23.9 (22.0-30.0) sec Sodium 135 L (137-145) mmol/L Potassium 4.3 (3.5-5.1) mmol/L Chloride 104 (98-107) mmol/L Carbon Dioxide 20 L (22-30) mmol/L Anion Gap 11 mmol/L BUN 12 (9-20) mg/dL Creatinine 0.89 (0.66-1.25) mg/dL Est GFR (CKD-EPI) (>=60) Est GFR (CKD-EPI)AfAm >90 (>60 ml/min/1.73 sqM) Est GFR (CKD-EPI)NonAf 83 (>60 ml/min/1.73 sqM) BUN/Creatinine Ratio (12.00-20.00) Ratio Glucose 184 H (74-99) mg/dL POC Glucose (mg/dL) (70-110) mg/dL POC Glu [place] ID Estimated Ave Glu mg/dL mg/dL Hemoglobin A1c (<=6.0) % Lactic Ac Sepsis Rflx Plasma Lactic Acid Evgeny (0.7-2.0) mmol/L Calcium 9.1 (8.4-10.2) mg/dL Total Bilirubin 1.8 H (0.2-1.3) mg/dL AST 51 (17-59) U/L ALT 33 (4-49) U/L Alkaline Phosphatase 119 (38-126) U/L Total Protein 7.2 (6.3-8.2) g/dL Albumin 4.2 (3.5-5.0) g/dL Amylase 52 (30-110) U/L Lipase 108 (23-300) U/L Vitamin B12 (200.0-944.0) pg/mL RBC Folate (280 - 791) ng/mL Urine Color Urine Appearance (Clear) Urine pH (5.0-8.0) Ur Specific [place] (1.001-1.035) Urine Protein (Negative) Urine Glucose (UA) (Negative) Urine Ketones (Negative) Urine Blood (Negative) Urine Nitrite (Negative) Urine Bilirubin (Negative) Urine Urobilinogen (<2.0) mg/dL Ur Leukocyte Esterase (Negative) Urine RBC (0-5) /hpf Urine WBC (0-5) /hpf Ur Squamous Epith Cells (0-4) /hpf Urine Bacteria (None) /hpf Hyaline Casts (0-2) /lpf Urine Mucus (None) /hpf Influenza Type A (PCR) (Not Detectd) Influenza Type B (PCR) (Not Detectd) RSV (PCR) (Not Detectd) SARS-CoV-2 (PCR) (Not Detectd) 05/08/24 05/08/24 05/08/24 Range/Units 18:58 18:58 18:58 WBC (3.8-10.6) k/uL RBC (4.30-5.90) m/uL Hgb (13.0-17.5) gm/dL Hct (39.0-53.0) % MCV (80.0-100.0) fL MCH (25.0-35.0) pg MCHC (31.0-37.0) g/dL RDW (11.5-15.5) % Plt Count (150-450) k/uL Estimated Plt Count (Adequate) MPV Immature Gran % (Auto) % Absolute Nucleated RBC % Neutrophils % % Lymphocytes % % Monocytes % % Eosinophils % % Basophils % % Immature Gran # (0.00-0.04) X 10*3/uL Neutrophils # (1.3-7.7) k/uL Lymphocytes # (1.0-4.8) k/uL Monocytes # (0-1.0) k/uL Eosinophils # (0-0.7) k/uL Basophils # (0-0.2) k/uL NRBC/100 WBC Diff (0.00-0.01) X 10*3/uL Manual Slide Review Immature Plt Fraction (1.1-6.1) % RBC Morphology (Normal) PT (10.0-12.5) sec INR (<1.2) APTT (22.0-30.0) sec Sodium (137-145) mmol/L Potassium (3.5-5.1) mmol/L Chloride (98-107) mmol/L Carbon Dioxide (22-30) mmol/L Anion Gap mmol/L BUN (9-20) mg/dL Creatinine (0.66-1.25) mg/dL Est GFR (CKD-EPI) (>=60) Est GFR (CKD-EPI)AfAm (>60 ml/min/1.73 sqM) Est GFR (CKD-EPI)NonAf (>60 ml/min/1.73 sqM) BUN/Creatinine Ratio (12.00-20.00) Ratio Glucose (74-99) mg/dL POC Glucose (mg/dL) (70-110) mg/dL POC Glu [place] ID Estimated Ave Glu mg/dL mg/dL Hemoglobin A1c (<=6.0) % Lactic Ac Sepsis Rflx Plasma Lactic Acid Evgeny 2.8 H* (0.7-2.0) mmol/L Calcium (8.4-10.2) mg/dL Total Bilirubin (0.2-1.3) mg/dL AST (17-59) U/L ALT (4-49) U/L Alkaline Phosphatase (38-126) U/L Total Protein (6.3-8.2) g/dL Albumin (3.5-5.0) g/dL Amylase (30-110) U/L Lipase (23-300) U/L Vitamin B12 (200.0-944.0) pg/mL RBC Folate (280 - 791) ng/mL Urine Color Yellow Urine Appearance Cloudy (Clear) Urine pH 7.5 (5.0-8.0) Ur Specific [place] 1.020 (1.001-1.035) Urine Protein Trace H (Negative) Urine Glucose (UA) 1+ H (Negative) Urine Ketones Negative (Negative) Urine Blood Negative (Negative) Urine Nitrite Positive (Negative) Urine Bilirubin Negative (Negative) Urine Urobilinogen <2.0 (<2.0) mg/dL Ur Leukocyte Esterase Moderate H (Negative) Urine RBC 5 (0-5) /hpf Urine WBC 109 H (0-5) /hpf Ur Squamous Epith Cells <1 (0-4) /hpf Urine Bacteria Many H (None) /hpf Hyaline Casts 4 H (0-2) /lpf Urine Mucus Rare H (None) /hpf Influenza Type A (PCR) Not Detected (Not Detectd) Influenza Type B (PCR) Not Detected (Not Detectd) RSV (PCR) Not Detected (Not Detectd) SARS-CoV-2 (PCR) Not Detected (Not Detectd) 05/08/24 05/08/24 05/09/24 Range/Units 20:18 23:03 20:42 WBC (3.8-10.6) k/uL RBC (4.30-5.90) m/uL Hgb (13.0-17.5) gm/dL Hct (39.0-53.0) % MCV (80.0-100.0) fL MCH (25.0-35.0) pg MCHC (31.0-37.0) g/dL RDW (11.5-15.5) % Plt Count (150-450) k/uL Estimated Plt Count (Adequate) MPV Immature Gran % (Auto) % Absolute Nucleated RBC % Neutrophils % % Lymphocytes % % Monocytes % % Eosinophils % % Basophils % % Immature Gran # (0.00-0.04) X 10*3/uL Neutrophils # (1.3-7.7) k/uL Lymphocytes # (1.0-4.8) k/uL Monocytes # (0-1.0) k/uL Eosinophils # (0-0.7) k/uL Basophils # (0-0.2) k/uL NRBC/100 WBC Diff (0.00-0.01) X 10*3/uL Manual Slide Review Immature Plt Fraction (1.1-6.1) % RBC Morphology (Normal) PT (10.0-12.5) sec INR (<1.2) APTT (22.0-30.0) sec Sodium (137-145) mmol/L Potassium (3.5-5.1) mmol/L Chloride (98-107) mmol/L Carbon Dioxide (22-30) mmol/L Anion Gap mmol/L BUN (9-20) mg/dL Creatinine (0.66-1.25) mg/dL Est GFR (CKD-EPI) (>=60) Est GFR (CKD-EPI)AfAm (>60 ml/min/1.73 sqM) Est GFR (CKD-EPI)NonAf (>60 ml/min/1.73 sqM) BUN/Creatinine Ratio (12.00-20.00) Ratio Glucose (74-99) mg/dL POC Glucose (mg/dL) 180 H (70-110) mg/dL POC Glu [place] ID [place] Estimated [address] Glu mg/dL mg/dL Hemoglobin A1c (<=6.0) % Lactic Ac Sepsis Rflx Y Plasma Lactic Acid Evgeny 1.9 (0.7-2.0) mmol/L Calcium (8.4-10.2) mg/dL Total Bilirubin (0.2-1.3) mg/dL AST (17-59) U/L ALT (4-49) U/L Alkaline Phosphatase (38-126) U/L Total Protein (6.3-8.2) g/dL Albumin (3.5-5.0) g/dL Amylase (30-110) U/L Lipase (23-300) U/L Vitamin B12 (200.0-944.0) pg/mL RBC Folate (280 - 791) ng/mL Urine Color Urine Appearance (Clear) Urine pH (5.0-8.0) Ur Specific [place] (1.001-1.035) Urine Protein (Negative) Urine Glucose (UA) (Negative) Urine Ketones (Negative) Urine Blood (Negative) Urine Nitrite (Negative) Urine Bilirubin (Negative) Urine Urobilinogen (<2.0) mg/dL Ur Leukocyte Esterase (Negative) Urine RBC (0-5) /hpf Urine WBC (0-5) /hpf Ur Squamous Epith Cells (0-4) /hpf Urine Bacteria (None) /hpf Hyaline Casts (0-2) /lpf Urine Mucus (None) /hpf Influenza Type A (PCR) (Not Detectd) Influenza Type B (PCR) (Not Detectd) RSV (PCR) (Not Detectd) SARS-CoV-2 (PCR) (Not Detectd) 05/10/24 05/10/24 05/10/24 Range/Units 06:24 06:31 06:31 WBC (3.8-10.6) k/uL RBC (4.30-5.90) m/uL Hgb (13.0-17.5) gm/dL Hct (39.0-53.0) % MCV (80.0-100.0) fL MCH (25.0-35.0) pg MCHC (31.0-37.0) g/dL RDW (11.5-15.5) % Plt Count (150-450) k/uL Estimated Plt Count (Adequate) MPV Immature Gran % (Auto) % Absolute Nucleated RBC % Neutrophils % % Lymphocytes % % Monocytes % % Eosinophils % % Basophils % % Immature Gran # (0.00-0.04) X 10*3/uL Neutrophils # (1.3-7.7) k/uL Lymphocytes # (1.0-4.8) k/uL Monocytes # (0-1.0) k/uL Eosinophils # (0-0.7) k/uL Basophils # (0-0.2) k/uL NRBC/100 WBC Diff (0.00-0.01) X 10*3/uL Manual Slide Review Immature Plt Fraction (1.1-6.1) % RBC Morphology (Normal) PT (10.0-12.5) sec INR (<1.2) APTT (22.0-30.0) sec Sodium (137-145) mmol/L Potassium (3.5-5.1) mmol/L Chloride (98-107) mmol/L Carbon Dioxide (22-30) mmol/L Anion Gap mmol/L BUN (9-20) mg/dL Creatinine (0.66-1.25) mg/dL Est GFR (CKD-EPI) (>=60) Est GFR (CKD-EPI)AfAm (>60 ml/min/1.73 sqM) Est GFR (CKD-EPI)NonAf (>60 ml/min/1.73 sqM) BUN/Creatinine Ratio (12.00-20.00) Ratio Glucose (74-99) mg/dL POC Glucose (mg/dL) 152 H (70-110) mg/dL POC Glu [place] ID [place] Estimated [address] Glu mg/dL 157 mg/dL Hemoglobin A1c 7.1 H (<=6.0) % Lactic Ac Sepsis Rflx Plasma Lactic Acid Evgeny (0.7-2.0) mmol/L Calcium (8.4-10.2) mg/dL Total Bilirubin (0.2-1.3) mg/dL AST (17-59) U/L ALT (4-49) U/L Alkaline Phosphatase (38-126) U/L Total Protein (6.3-8.2) g/dL Albumin (3.5-5.0) g/dL Amylase (30-110) U/L Lipase (23-300) U/L Vitamin B12 (200.0-944.0) pg/mL RBC Folate 568 (280 - 791) ng/mL Urine Color Urine Appearance (Clear) Urine pH (5.0-8.0) Ur Specific [place] (1.001-1.035) Urine Protein (Negative) Urine Glucose (UA) (Negative) Urine Ketones (Negative) Urine Blood (Negative) Urine Nitrite (Negative) Urine Bilirubin (Negative) Urine Urobilinogen (<2.0) mg/dL Ur Leukocyte Esterase (Negative) Urine RBC (0-5) /hpf Urine WBC (0-5) /hpf Ur Squamous Epith Cells (0-4) /hpf Urine Bacteria (None) /hpf Hyaline Casts (0-2) /lpf Urine Mucus (None) /hpf Influenza Type A (PCR) (Not Detectd) Influenza Type B (PCR) (Not Detectd) RSV (PCR) (Not Detectd) SARS-CoV-2 (PCR) (Not Detectd) 05/10/24 05/10/24 Range/Units 06:31 06:31 WBC 5.47 (3.8-10.6) k/uL RBC 3.66 L (4.30-5.90) m/uL Hgb 11.1 L (13.0-17.5) gm/dL Hct 34.9 L (39.0-53.0) % MCV 95.4 (80.0-100.0) fL MCH 30.3 (25.0-35.0) pg MCHC 31.8 L (31.0-37.0) g/dL RDW 15.0 H (11.5-15.5) % Plt Count 47 L (150-450) k/uL Estimated Plt Count Sig Decrease (Adequate) MPV 11.3 Immature Gran % (Auto) 1.10 % Absolute Nucleated RBC 0 % Neutrophils % 79.3 % Lymphocytes % 11.2 % Monocytes % 8.0 % Eosinophils % 0.2 % Basophils % 0.2 % Immature Gran # 0.06 H (0.00-0.04) X 10*3/uL Neutrophils # 4.34 (1.3-7.7) k/uL Lymphocytes # 0.61 L (1.0-4.8) k/uL Monocytes # 0.44 (0-1.0) k/uL Eosinophils # 0.01 L (0-0.7) k/uL Basophils # 0.01 (0-0.2) k/uL NRBC/100 WBC Diff 0 (0.00-0.01) X 10*3/uL Manual Slide Review Morph Only Immature Plt Fraction 5.5 (1.1-6.1) % RBC Morphology Normal (Normal) PT (10.0-12.5) sec INR (<1.2) APTT (22.0-30.0) sec Sodium 139 (137-145) mmol/L Potassium 4.5 (3.5-5.1) mmol/L Chloride 105 (98-107) mmol/L Carbon Dioxide 19.2 L (22-30) mmol/L Anion Gap 14.80 H mmol/L BUN 18.3 (9-20) mg/dL Creatinine 1.2 (0.66-1.25) mg/dL Est GFR (CKD-EPI) 63 (>=60) Est GFR (CKD-EPI)AfAm (>60 ml/min/1.73 sqM) Est GFR (CKD-EPI)NonAf (>60 ml/min/1.73 sqM) BUN/Creatinine Ratio 15.25 (12.00-20.00) Ratio Glucose 135 H (74-99) mg/dL POC Glucose (mg/dL) (70-110) mg/dL POC Glu [place] ID Estimated Ave Glu mg/dL mg/dL Hemoglobin A1c (<=6.0) % Lactic Ac Sepsis Rflx Plasma Lactic Acid Evgeny (0.7-2.0) mmol/L Calcium 8.6 L (8.4-10.2) mg/dL Total Bilirubin (0.2-1.3) mg/dL AST (17-59) U/L ALT (4-49) U/L Alkaline Phosphatase (38-126) U/L Total Protein (6.3-8.2) g/dL Albumin (3.5-5.0) g/dL Amylase (30-110) U/L Lipase (23-300) U/L Vitamin B12 <150.0 L (200.0-944.0) pg/mL RBC Folate (280 - 791) ng/mL Urine Color Urine Appearance (Clear) Urine pH (5.0-8.0) Ur Specific [place] (1.001-1.035) Urine Protein (Negative) Urine Glucose (UA) (Negative) Urine Ketones (Negative) Urine Blood (Negative) Urine Nitrite (Negative) Urine Bilirubin (Negative) Urine Urobilinogen (<2.0) mg/dL Ur Leukocyte Esterase (Negative) Urine RBC (0-5) /hpf Urine WBC (0-5) /hpf Ur Squamous Epith Cells (0-4) /hpf Urine Bacteria (None) /hpf Hyaline Casts (0-2) /lpf Urine Mucus (None) /hpf Influenza Type A (PCR) (Not Detectd) Influenza Type B (PCR) (Not Detectd) RSV (PCR) (Not Detectd) SARS-CoV-2 (PCR) (Not Detectd) Disposition Clinical Impression: Fever, Abdominal pain Disposition: ADMITTED IP TO THIS HOSP Condition: Stable Is patient prescribed a controlled substance at d/c from ED?: No
[2024-05-08] MEDS: ACETAMINOPHEN IV (For NPO) 1,000 MG in EMPTY BAG 1 BAG IVPB STA (19:11)
[2024-05-08] MEDS: SODIUM CHLORIDE 0.9% 1,000 ML IV STA (19:13)
--- NOTE | 2024-05-08 20:06 | XR ---
EXAMINATION TYPE: XR abdomen 2V DATE OF EXAM: 05/08/2024 8:01 PM CLINICAL INDICATION:Male, 78 years old with history of fever; [facility] COMPARISON: None. TECHNIQUE: Two views of the abdomen were obtained. FINDINGS: The bowel gas pattern is nonspecific without dilated loops of small or large bowel. There i s no evidence for organomegaly or pneumoperitoneum. The osseous structures are intact. No abnormal calcifications are present. Fecal material and gas are demonstrated throughout the colon and rectum. Multilevel degeneration changes of the spine. IMPRESSION: Nonspecific bowel gas pattern without radiographic evidence for acute process.
[2024-05-08 20:13] LABS: ALT 33 U/L (4-49); AST 51 U/L (17-59); African American GFR (CKD) >90 (>60 ml/min/1.73 sqM); Albumin 4.2 g/dL (3.5-5.0); Alkaline Phosphatase 119 U/L (38-126); Amylase 52 U/L (30-110); Anion Gap 11 mmol/L; Blood Urea Nitrogen 12 mg/dL (9-20); Calcium 9.1 mg/dL (8.4-10.2); Carbon Dioxide 20 mmol/L (22-30); Chloride 104 mmol/L (98-107); Glucose 184 mg/dL (74-99); INR 1.1 (<1.2); Lipase 108 U/L (23-300); Non-African American GFR(CKD) 83 (>60 ml/min/1.73 sqM); Partial Thromboplastin Time 23.9 sec (22.0-30.0); Potassium 4.3 mmol/L (3.5-5.1); Prothrombin Time 12.2 sec (10.0-12.5); Sodium 135 mmol/L (137-145); Total Bilirubin 1.8 mg/dL (0.2-1.3); Total Protein 7.2 g/dL (6.3-8.2)
[2024-05-08 20:23] LABS: Appearance,Urine Cloudy (Clear); Bacteria,Urine Many /hpf; Bilirubin,Urine Negative (Negative); Blood,Urine Negative (Negative); Color,Urine Yellow; Glucose,Urine (UA) 1+ (Negative); Hyaline Casts,Urine 4 /lpf (0-2); Ketones,Urine Negative (Negative); Leukocyte Esterase,Urine Moderate (Negative); Mucus,Urine Rare /hpf; Nitrite,Urine Positive (Negative); PH, Urine 7.5 (5.0-8.0); Protein,Urine Trace (Negative); RBC,Urine 5 /hpf (0-5); Squamous Epithelial Cell,Urine <1 /hpf (0-4); Urobilinogen,Urine <2.0 mg/dL (<2.0); WBC,Urine 109 /hpf (0-5)
[2024-05-08 20:27] LABS: Basophils % (A) 0 %; Eosinophils # (A) 0.1 k/uL (0-0.7); Eosinophils % (A) 1 %; HCT 38.9 % (39.0-53.0); HGB 12.5 gm/dL (13.0-17.5); Lymphocytes # (A) 0.6 k/uL (1.0-4.8); Lymphocytes % (A) 9 %; MCH 30.8 pg (25.0-35.0); MCHC 32.2 g/dL (31.0-37.0); MCV 95.5 fL (80.0-100.0); Mean Platelet Volume 8.5; Monocytes # (A) 0.4 k/uL (0-1.0); Monocytes % (A) 6 %; Neutrophils # (A) 5.6 k/uL (1.3-7.7); Neutrophils % (A) 83 %; RBC 4.08 m/uL (4.30-5.90); WBC 6.7 k/uL (3.8-10.6)
[2024-05-08 20:31] LABS: Platelet Count 68 k/uL (150-450)
--- NOTE | 2024-05-08 21:40 | CT ---
EXAMINATION TYPE: CT abdomen pelvis w con CT DLP: 2277 mGycm, Automated exposure control for dose reduction was used. DATE OF EXAM: 05/08/2024 9:22 PM COMPARISON: CT abdomen pelvis most recent from 02/28/2024 CLINICAL INDICATION:Male, 78 years old with history of abdominal pain/fever; Abdominal pain/fever TECHNIQUE: Axial CT abdomen pelvis w con;Sagittal and coronal reformats were created on a separate w orkstation. Contrast used:100 mL of Isovue 300 with IV Contrast, (none if empty) Oral contrast used: without Oral Contrast (none if empty) FINDINGS: LOWER CHEST: The heart is moderately enlarged for size. Coronary artery atherosclerosis. ABDOMEN LIVER: Nodular contour to liver. GALLBLADDER AND BILE DUCTS: The gallbladder is surgically absent. PANCREAS: Unremarkable. SPLEEN: Enlarged measuring up to 16.9 cm. ADRENAL GLANDS: Unremarkable. KIDNEYS AND URETERS: No hydronephrosis. Left renal cyst. Nonobstructing bilateral renal calculi. PELVIS BLADDER: Unremarkable REPRODUCTIVE: Unremarkable. ABDOMEN & PELVIS STOMACH AND BOWEL: No evidence of bowel obstruction. Postsurgical changes in the sigmoid:. Fat strand ing changes in the left lower abdomen without definitive source identified similar to 02/28/2024. PERITONEUM/RETROPERITONEUM: No evidence of pneumoperitoneum or free fluid. VASCULATURE: Mild atherosclerotic calcifications are present throughout the abdominal aorta and its b ranches. No evidence of aortic aneurysm. Small varices and upper abdomen. MUSCULOSKELETAL: No acute osseous abnormalities. Mild disc degeneration changes are present throughou t the thoracolumbar spine. LYMPH NODES: No gross evidence for lymphadenopathy. SOFT TISSUE/ABDOMINAL WALL: Bilateral fat-containing inguinal hernias. Post surgical changes anterior abdomen. IMPRESSION: 1. Fat stranding changes in the left abdomen without definitive etiology. No evidence for bowel obstr uction, bowel wall thickening, or evidence for diverticulitis. 2. Nodular contour to liver suggestive of cirrhosis with portal hypertension with splenomegaly and sm all varices in the upper abdomen. 3. Nonobstructing bilateral renal calculi.
[2024-05-09] MEDS ORDERED: NALOXONE 0.4 MG/ML 1 ML VIAL IV PRN (00:23)
[2024-05-09] MEDS ORDERED: ONDANSETRON 4 MG/2 ML VIAL IVP PRN (00:23)
[2024-05-09] MEDS ORDERED: ALBUTEROL NEBULIZED 2.5 MG/3 ML INHALATION PRN (00:25)
[2024-05-09] MEDS: SODIUM CHLORIDE 0.9% 1,000 ML IV SCH ×2 (00:40→00:56)
[2024-05-09] MEDS: ACETAMINOPHEN TAB 325 MG TAB PO PRN (05:50)
[2024-05-09] MEDS: carvediloL 12.5 MG TAB PO SCH (10:40)
[2024-05-09] MEDS: ATORVASTATIN 80 MG TAB PO SCH (10:51)
[2024-05-09] MEDS: ASPIRIN 81 MG PO SCH (10:52)
[2024-05-09] MEDS: metFORMIN 500 MG TAB PO SCH (10:52)
[2024-05-09] MEDS: FERROUS SULFATE 325 MG TAB PO SCH (10:56)
[2024-05-09] MEDS: FAMOTIDINE 20 MG TAB PO SCH (10:56)
[2024-05-09] MEDS: HEPARIN SODIUM,PORCINE 5,000 UNIT/ML 1 ML VIAL SQ SCH (14:57)
[2024-05-09] MEDS ORDERED: DEXTROSE 50% SYRINGE 50 ML IVP PRN ×2 (19:51)
--- NOTE | 2024-05-09 19:56 | P.HPIM ---
History of Present Illness H&P Date: 05/09/24 Chief Complaint: Fever Patient is a 78-year-old male with a past medical history of coronary artery disease status post stent placement, hypertension, diabetes type 2 insulin- dependent, hearing disorder/deafness, hypertension, hyperlipidemia, history of [place], SVT, chronic CHF with mildly reduced ejection fraction 40 to 45% and low anterior resection of the colon and history of diverticulitis and prior history of smoking and obesity. Patient presents to ER with complaints of abdominal pain and fever. Patient states that his abdominal pain is mainly in the lower abdomen. He has been having symptoms worsening for the past 1 to 2 days. Patient also has a history of. Diverticulitis. Otherwise denies any recent diarrhea. No complaints of vomiting. Was nauseated. Abdominal x-ray showed nonspecific bowel gas pattern without radiographic evidence for acute process. CT of the abdomen pelvis showed fat stranding changes in the left abdomen without definitive etiology. No evidence for bowel obstruction bowel wall thickening or evidence for diverticulitis. Nodular contour of the liver suggestive of cirrhosis with portal hypertension with splenomegaly and small varices in the upper abdomen. Nonobstructing bilateral renal calculi. Laboratory data showed WBC 6.7 hemoglobin 12.5 and platelets 68 Sodium 135 potassium 4.3 chloride 104 bicarb is 20 BUN 12 and creatinine 0.89 and blood sugar 184 lactic acid 2.8 and total bili 1.8 AST ALT alk phos within normal limits amylase 52 and lipase 108 Urinalysis showed trace protein 1+ glucose moderate leukocyte esterase with WBCs 109 and many bacteria Urine influenza A B RSV and COVID-19 PCR not detected. Patient was febrile with Tmax 103 F on admission. Review of Systems Constitutional: Did have fever and chills.. Patient does have generalized weakness. No loss of appetite. Abdomen: Patient denied nausea vomiting and diarrhea. Lower abdominal pain. Cardiovascular: Patient denies any chest pain or short of breath no palpitations. Respiratory: patient denied any cough or sputum production. No shortness of breath Neurologic: Patient denied any numbness or tingling. no headache. Musculoskeletal: Patient denies any complaints of joint swelling or deformity. Skin: Negative Psychiatric: Negative Endocrine: No heat or cold intolerance. No recent weight gain. Genitourinary: No dysuria or hematuria. All other 14 point ROS negative except the above Past Medical History Past Medical History: Coronary Artery Disease (CAD), Chest Pain / Angina, Heart Failure, COPD, Diabetes Mellitus, GERD/Reflux, Hearing Disorder / Deafness, Hyperlipidemia, Hypertension, Myocardial Infarction (FL), Pneumonia, Supraventricular Tachycardia (SVT), Vascular Disorder Additional Past Medical History / Comment(s): Stomach pain, recent hospitalization for diverticulitis. Ischemic CMP, nonsustained ventriclar arrhythmia, systolic heart failure, [place] x 2 in 2001, 1994, kidney stones, gout bilateral feet/ toes, hx bilat tinnitis, stomach ulcers 2020 Last Myocardial Infarction Date:: 2001 History of Any Multi-Drug Resistant Organisms: None Reported Past Surgical History: Bowel Resection, Cardiac Ablation, Cholecystectomy, Heart Catheterization, Heart Catheterization With Stent, Joint Replacement, Orthopedic Surgery Additional Past Surgical History / Comment(s): PCIs with total 6 stents per patient, cardiac ablation-AVRNT, EPS, R caratid stent, R knee arthroscopy, bilateral total knee replacements x2-L side became infected-had I&D, bilateral shoulder rotator cuff surgeries with R side done 3 times, L ankle surgery, bilateral carpal tunnel releases, colonoscopy. EGD lft shoulder x1. Low anterior partial colon resection Nov 2023. Past Anesthesia/Blood Transfusion Reactions: No Reported Reaction Additional Past Anesthesia/Blood Transfusion Reaction / Comment(s): never had a blood tranfusion Date of Last Stent Placement:: 02/05/19 Past Psychological History: No Psychological Hx Reported Smoking Status: Former smoker - Past Family History Father History Unknown: Yes Additional Family Medical History / Comment(s): Pt does not know his father's history. His parents were when he was 6 yrs old. Mother History Unknown: Yes Family Medical History: Cancer Additional Family Medical History / Comment(s): Pt states mother had some form of cancer which she from at the age of 77yrs. Medications and Allergies Home Medications Medication Instructions Recorded Confirmed Type metFORMIN HCL [Glucophage] 1,000 mg PO BID 06/07/14 05/09/24 History Nitroglycerin Sl Tabs [Nitrostat] 0.4 mg SL Q5M PRN 07/17/21 05/09/24 History allopurinoL [Zyloprim] 100 mg PO DAILY 07/17/21 05/09/24 History carvediloL [Coreg] 12.5 mg PO BID 11/27/21 05/09/24 History Aspirin EC [Ecotrin Low Dose] 81 mg PO DAILY 02/10/22 05/09/24 History lisinopriL [Zestril] 2.5 mg PO DAILY 02/10/22 05/09/24 History Atorvastatin [Lipitor] 80 mg PO DAILY 03/07/22 05/09/24 History Albuterol Inhaler [Ventolin Hfa 2 puff INHALATION RT-Q4H PRN 07/22/23 05/09/24 History Inhaler] Insulin NPH Hum/Reg Insulin Hm 30 unit SQ BID@0800,1700 10/16/23 05/09/24 History [NovoLIN 70-30 100 Unit/ml Vial] Ondansetron Odt [Zofran ODT] 4 mg PO Q8HR PRN #10 tab 02/26/24 05/09/24 Rx Ferrous Sulfate [Iron (65 MG 325 mg PO DAILY 03/12/24 05/09/24 History Elemental)] Magnesium 250 mg PO DAILY 03/12/24 05/09/24 History Acetaminophen Tab [Tylenol] 500 - 1,000 mg PO Q6H PRN MDD 8 05/09/24 05/09/24 History TABS Allergies Allergy/AdvReac Type Severity Reaction Status Date / Time No Known Allergies Allergy Verified 03/15/24 10:03 Physical Exam Vitals: Vital Signs Temp Pulse Pulse Resp BP BP Pulse Ox 05/09/24 08:00 98.8 F 80 16 109/63 95 05/09/24 07:25 101.2 F H 05/09/24 05:43 101.8 F H 87 17 130/60 97 05/09/24 00:49 78 18 108/47 95 05/08/24 23:06 98.0 F 79 17 102/44 97 05/08/24 18:12 103 F H 87 18 133/59 95 Intake and Output 05/08/24 05/09/24 05/09/24 22:59 06:59 14:59 Intake Total 118 Balance 118 Intake: Oral 118 Other: # Voids 1 Weight 109.769 kg PHYSICAL EXAMINATION: Patient is lying in the bed comfortably, no acute distress, awake alert and oriented. Obese. HEENT: Normocephalic. Neck is supple. Pupils reactive. Nostrils clear. Oral cavity is moist. Neck reveals no JVD, carotid bruits, or thyromegaly. CHEST EXAMINATION: Trachea is central. Symmetrical expansion. Lung dash clear to auscultation and percussion. CARDIAC: Normal S1, S2 with no gallops. No murmurs ABDOMEN: Soft. Bowel sounds present. Nontender.. No organomegaly. No abdominal bruits. Extremities: reveal no edema. No clubbing or cyanosis Neurologically awake, alert, oriented x3 with well-coordinated movements. No focal deficits noted Skin: No rash or skin lesions. Psychiatric: Coperative. Nonsuicidal Musculoskeletal: No joint swelling or deformity. Normal range of motion. Results CBC & Chem 7: 05/08/24 18:58 05/08/24 18:58 Labs: Abnormal Lab Results - Last 24 Hours (Table) 05/08/24 05/08/24 05/08/24 Range/Units 18:58 18:58 18:58 RBC 4.08 L (4.30-5.90) m/uL Hgb 12.5 L (13.0-17.5) gm/dL Hct 38.9 L (39.0-53.0) % Plt Count 68 L (150-450) k/uL Lymphocytes # 0.6 L (1.0-4.8) k/uL Sodium 135 L (137-145) mmol/L Carbon Dioxide 20 L (22-30) mmol/L Glucose 184 H (74-99) mg/dL Plasma Lactic Acid Evgeny (0.7-2.0) mmol/L Total Bilirubin 1.8 H (0.2-1.3) mg/dL Urine Protein Trace H (Negative) Urine Glucose (UA) 1+ H (Negative) Ur Leukocyte Esterase Moderate H (Negative) Urine WBC 109 H (0-5) /hpf Urine Bacteria Many H (None) /hpf Hyaline Casts 4 H (0-2) /lpf Urine Mucus Rare H (None) /hpf 05/08/24 Range/Units 18:58 RBC (4.30-5.90) m/uL Hgb (13.0-17.5) gm/dL Hct (39.0-53.0) % Plt Count (150-450) k/uL Lymphocytes # (1.0-4.8) k/uL Sodium (137-145) mmol/L Carbon Dioxide (22-30) mmol/L Glucose (74-99) mg/dL Plasma Lactic Acid Evgeny 2.8 H* (0.7-2.0) mmol/L Total Bilirubin (0.2-1.3) mg/dL Urine Protein (Negative) Urine Glucose (UA) (Negative) Ur Leukocyte Esterase (Negative) Urine WBC (0-5) /hpf Urine Bacteria (None) /hpf Hyaline Casts (0-2) /lpf Urine Mucus (None) /hpf Thrombosis Risk Factor Assmnt - DVT/VTE Prophylaxis DVT/VTE Prophylaxis: Pharmacologic Prophylaxis ordered Assessment and Plan Assessment: Acute urinary tract infection. Patient presented with fever and lower abdominal pain Hypovolemic hyponatremia Chronic thrombocytopenia Liver cirrhosis with portal hypertension with splenomegaly and small varices in the upper abdomen Coronary artery disease history of stent placement Chronic CHF with systolic dysfunction ejection fraction 40 to 45% History of [place] Hearing disorder/deafness Diabetes type 2 insulin-dependent COPD Prior history of smoking Hypertension History of SVT History of bowel resection and diverticulitis DVT prophylaxis with heparin subcu Obesity with BMI 37.9 DVT prophylax with PPI Plan: Patient will be continued on IV hydration with normal saline. Monitor respiratory status closely. Continue with antibiotics ceftriaxone and follow-up urine culture report. Continue with insulin sliding scale and insulin regimen Continue with aspirin statin beta-blockers and lisinopril. Follow-up vitamin B12 and folate levels Postvoid residual was ordered. Continue to follow closely. Time with Patient: Greater than 30
[2024-05-09 20:44] LABS: Glucose,Whole Blood 180 mg/dL (70-110)
[2024-05-09] MEDS: PANTOPRAZOLE 40 MG TABLET PO SCH (20:45)
[2024-05-09] MEDS: INSULIN ASPART (NovoLOG) 100 UNIT/ML VIAL SQ SCH (20:48)
[2024-05-10 06:26] LABS: Glucose,Whole Blood 152 mg/dL (70-110)
[2024-05-10 10:43] LABS: BUN/Creat Ratio 15.25 Ratio (12.00-20.00); Blood Urea Nitrogen 18.3 mg/dL (9.0-27.0); Calcium 8.6 mg/dL (8.7-10.3); Carbon Dioxide 19.2 mmol/L (21.6-31.8); Chloride 105 mmol/L (96-109); Glucose 135 mg/dL (70-110); Potassium 4.5 mmol/L (3.5-5.5); Sodium 139 mmol/L (135-145)
[2024-05-10 10:45] LABS: Basophils # (A) 0.01 X 10*3/uL (0.00-0.10); Basophils % (A) 0.2 %; Eosinophils # (A) 0.01 X 10*3/uL (0.04-0.35); Eosinophils % (A) 0.2 %; HCT 34.9 % (39.6-50.0); HGB 11.1 g/dL (13.0-17.0); Immature Platelet Fraction 5.5 % (1.1-6.1); Lymphocytes # (A) 0.61 X 10*3/uL (0.90-5.00); Lymphocytes % (A) 11.2 %; MCH 30.3 pg (27.0-32.0); MCHC 31.8 g/dL (32.0-37.0); MCV 95.4 FL (80.0-97.0); Mean Platelet Volume 11.3 FL (9.5-12.2); Monocytes # (A) 0.44 X 10*3/uL (0.20-1.00); NRBC Per 100 WBC 0 X 10*3/uL (0.00-0.01); Neutrophils # (A) 4.34 X 10*3/uL (1.80-7.70); Neutrophils % (A) 79.3 %; Platelet Count 47 X 10*3/uL (140-440); RBC 3.66 X 10*6/uL (4.40-5.60); RBC Morphology Normal (Normal); WBC 5.47 X 10*3/uL (4.50-10.00)
[2024-05-10 10:52] LABS: Vitamin B12 <150.0 pg/mL (200.0-944.0)
[2024-05-10 11:45] LABS: Glucose,Whole Blood 183 mg/dL (70-110)
[2024-05-10] MEDS: INSULN ASP PRT/INSULIN ASPART 100 UNIT/ML 10 ML VIAL SQ SCH (12:05)
[2024-05-10] MEDS: allopurinoL 100 MG TAB PO SCH (12:07)
[2024-05-10 17:24] LABS: Glucose,Whole Blood 183 mg/dL (70-110)
[2024-05-10] MEDS: CYANOCOBALAMIN 1,000 MCG/ML 1 ML VIAL IM ONE (18:30)
[2024-05-10 21:11] LABS: Glucose,Whole Blood 186 mg/dL (70-110)
--- NOTE | 2024-05-11 05:44 | P.PN ---
Subjective Progress Note Date: 05/10/24 Patient is a 78-year-old male with a past medical history of coronary artery disease status post stent placement, hypertension, diabetes type 2 insulin- dependent, hearing disorder/deafness, hypertension, hyperlipidemia, history of [place], SVT, chronic CHF with mildly reduced ejection fraction 40 to 45% and low anterior resection of the colon and history of diverticulitis and prior history of smoking and obesity. Patient presents to ER with complaints of abdominal pain and fever. Patient states that his abdominal pain is mainly in the lower abdomen. He has been having symptoms worsening for the past 1 to 2 days. Patient also has a history of. Diverticulitis. Otherwise denies any recent diarrhea. No complaints of vomiting. Was nauseated. Abdominal x-ray showed nonspecific bowel gas pattern without radiographic evidence for acute process. CT of the abdomen pelvis showed fat stranding changes in the left abdomen without definitive etiology. No evidence for bowel obstruction bowel wall th ickening or evidence for diverticulitis. Nodular contour of the liver suggestive of cirrhosis with portal hypertension with splenomegaly and small varices in the upper abdomen. Nonobstructing bilateral renal calculi. Laboratory data showed WBC 6.7 hemoglobin 12.5 and platelets 68 Sodium 135 potassium 4.3 chloride 104 bicarb is 20 BUN 12 and creatinine 0.89 and blood sugar 184 lactic acid 2.8 and total bili 1.8 AST ALT alk phos within normal limits amylase 52 and lipase 108 Urinalysis showed trace protein 1+ glucose moderate leukocyte esterase with WBCs 109 and many bacteria Urine influenza A B RSV and COVID-19 PCR not detected. Patient was febrile with Tmax 103 F on admission. 05/10/2024 Patient seen in follow-up today with no acute overnight issues noted. Patient continues to have voiding with no difficulties and reports to being frequently. Patient denies burning or pain at this time with urination. Preliminary urine culture showing gram-negative bacilli and awaiting finalized cultures to determine discharge antibiotics. Patient is now afebrile with no reported chest pain or shortness of breath. Patient has been up and walking with no difficulties. Will refer to outpatient urology regarding nonobstructing stones and further evaluation. Review of systems: Constitutional: reports of feeling fatigued today, no fever, or chills Cardiovascular: No reports of chest pain or palpitations Respiratory: No reports of shortness of breath or cough GI: No reports of nausea, vomiting, or diarrhea : No reports of dysuria or retention, reports urinating frequently Neurovascular: No reports of weakness or numbness All medications have been reviewed PHYSICAL EXAMINATION: Patient is lying in the bed comfortably, no acute distress, awake alert and oriented. Obese. HEENT: Normocephalic. Neck is supple. Pupils reactive. Nostrils clear. Oral cavity is moist. Neck reveals no JVD, carotid bruits, or thyromegaly. CHEST EXAMINATION: Trachea is central. Symmetrical expansion. Lung dash clear to auscultation and percussion. CARDIAC: Normal S1, S2 with no gallops. No murmurs ABDOMEN: Soft. Obese. Bowel sounds present. Nontender.. No organomegaly. No abdominal bruits. Extremities: reveal no edema. No clubbing or cyanosis Neurologically awake, alert, oriented x3 with well-coordinated movements. No focal deficits noted Skin: No rash or skin lesions. Psychiatric: Cooperative. Non-suicidal Musculoskeletal: No joint swelling or deformity. Normal range of motion. Assessment: Acute urinary tract infection. Present on admission. Patient presented with f ever and lower abdominal pain Hypovolemic hyponatremia Chronic thrombocytopenia Liver cirrhosis with portal hypertension with splenomegaly and small varices in the upper abdomen Coronary artery disease history of stent placement Chronic CHF with systolic dysfunction ejection fraction 40 to 45% History of [place] Hearing disorder/deafness Diabetes type 2 insulin-dependent COPD not in exacerbation Prior history of smoking Hypertension History of SVT History of bowel resection and diverticulitis DVT prophylaxis with heparin subcu Obesity with BMI 37.9 DVT prophylax with PPI Plan: Patient will be continued on IV hydration with normal saline. Monitor respiratory status closely. Patient is eating and drinking more will discontinue fluids Continue with antibiotics ceftriaxone and follow-up urine culture report. Preliminary showing gram-negative bacilli. Blood cultures are negative Continue with insulin sliding scale and insulin regimen and adjust accordingly Postvoid residual was ordered. Continue to follow closely. Patient will need urology follow-up outpatient for further evaluation of nonobstructing stones Will follow-up with repeat labs and currently awaiting cultures to determine d ischarge antibiotics Possible discharge planning in the next 24 to 48 hours The impression and plan of care has been dictated by Kelly Sumner, Nurse Practitioner as directed. Dr. Sinan MD I have performed a history and examination and MDM of this patient, discussed the same with the dictator, and agree with the dictator's assessment and plan as written ,documented as a scribe. Based on total visit time, I have performed more than 50% of the visit. Objective - Vital Signs Vital signs: Vital Signs Temp 98.6 F 05/10/24 06:55 Pulse 89 05/10/24 06:55 Resp 18 05/10/24 06:55 BP 120/56 05/10/24 06:55 Pulse Ox 96 05/10/24 06:55 FiO2 Intake & Output 05/09/24 05/10/24 05/10/24 18:59 06:59 18:59 Intake Total 236 118 Output Total 200 Balance 36 118 Weight 109.769 kg Intake: Oral 236 118 Output: Urine 200 Other: Voiding Method Toilet Toilet # Voids 1 3 3 - Labs CBC & Chem 7: 05/10/24 06:31 05/10/24 06:31 Labs: Abnormal Lab Results - Last 24 Hours (Table) 05/09/24 05/10/24 05/10/24 Range/Units 20:42 06:24 06:31 POC Glucose (mg/dL) 180 H 152 H (70-110) mg/dL Hemoglobin A1c 7.1 H (<=6.0) % Microbiology - Last 24 Hours (Table) 05/08/24 18:58 Urine Culture - Preliminary Urine,Voided Gram Neg Bacilli 05/08/24 19:25 Blood Culture - Preliminary Blood 05/08/24 19:10 Blood Culture - Preliminary Blood
[2024-05-11 06:20] LABS: Glucose,Whole Blood 138 mg/dL (70-110)
[2024-05-11] MEDS: HEPARIN SODIUM,PORCINE 5,000 UNIT/ML 1 ML VIAL SQ SCH (08:42)
[2024-05-11] MEDS: FAMOTIDINE 20 MG TAB PO SCH (08:42)
[2024-05-11] MEDS: CYANOCOBALAMIN 1,000 MCG/ML 1 ML VIAL IM SCH (08:42)
[2024-05-11 10:26] LABS: BUN/Creat Ratio 17.75 Ratio (12.00-20.00); Blood Urea Nitrogen 21.3 mg/dL (9.0-27.0); Carbon Dioxide 19.1 mmol/L (21.6-31.8); Chloride 106 mmol/L (96-109); Glucose 153 mg/dL (70-110); Potassium 4.4 mmol/L (3.5-5.5); Sodium 138 mmol/L (135-145)
--- NOTE | 2024-05-11 10:28 | XR ---
EXAMINATION TYPE: XR chest 2V DATE OF EXAM: 05/11/2024 9:40 AM CLINICAL INDICATION:Male, 78 years old with history of fever, sob; COMPARISON: Chest radiographs from 10/16/2023 TECHNIQUE: XR chest 2V Frontal and lateral views of the chest. FINDINGS: Lungs/Pleura: There is no evidence of pleural effusion, focal consolidation, or pneumothorax. Pulmonary vascularity: Unremarkable. Heart/mediastinum: Cardiomediastinal silhouette is unremarkable. Musculoskeletal: No acute osseous pathology. Right shoulder arthroplasty changes. IMPRESSION: No acute cardiopulmonary disease/process.
[2024-05-11 10:41] LABS: Basophils # (A) 0.01 X 10*3/uL (0.00-0.10); Basophils % (A) 0.3 %; Eosinophils # (A) 0 X 10*3/uL (0.04-0.35); Eosinophils % (A) 0 %; HGB 10.8 g/dL (13.0-17.0); Immature Platelet Fraction 4.7 % (1.1-6.1); Lymphocytes # (A) 0.34 X 10*3/uL (0.90-5.00); Lymphocytes % (A) 10.7 %; MCH 30.1 pg (27.0-32.0); MCHC 30.9 g/dL (32.0-37.0); MCV 97.5 FL (80.0-97.0); Mean Platelet Volume 11.6 FL (9.5-12.2); Monocytes # (A) 0.37 X 10*3/uL (0.20-1.00); Monocytes % (A) 11.6 %; NRBC Per 100 WBC 0 X 10*3/uL (0.00-0.01); Neutrophils # (A) 2.45 X 10*3/uL (1.80-7.70); Neutrophils % (A) 76.8 %; Platelet Count 47 X 10*3/uL (140-440); RBC 3.59 X 10*6/uL (4.40-5.60); RDW 14.9 % (11.5-14.5); WBC 3.19 X 10*3/uL (4.50-10.00)
[2024-05-11 12:09] LABS: Glucose,Whole Blood 158 mg/dL (70-110)
[2024-05-11 17:07] LABS: Glucose,Whole Blood 142 mg/dL (70-110)
[2024-05-11 21:10] LABS: Glucose,Whole Blood 202 mg/dL (70-110)
--- NOTE | 2024-05-11 22:51 | P.CONS ---
History of Present Illness - Reason for Consult Consult date: 05/11/24 UTI, febrile Requesting physician: Kelly Sumner - Chief Complaint Fever and abdominal pain x few days - History of Present Illness Patient is a 78-year-old male with a past medical history significant for coronary artery disease diabetes mellitus , COPD hypertension hyperlipidemia presenting to the hospital 3 days ago for evaluation of generalized abdominal pain and fever patient symptom has been going on for a day or 2 before presentation to the hospital patient denies having any headache or URI symptoms no chest pain shortness of breath or cough did have some nausea but no vomiting no abdominal pain did have diarrhea which is chronic for him did have some difficulty urination but denies any significant burning of urine or suprapubic or flank pain patient on presentation to the hospital did have a temperature of 103 F and spike another fever of 102.9 F this morning prompting this consultation patient was not tachycardic hypotensive or hypoxic he did have a white count of 6.7 on admission which is slightly down to 3.19 creatinine is 1.2 urine has been cloudy influenza RSV COVID testing was negative urine culture finalized with Klebsiella that is a sensitive pathogen blood cultures are currently pending patient did have a CT of abdominal pelvis 5 stranding changes in the left abdominal without definitive etiology no evidence for bowel ob struction nonobstructive bilateral renal calculi chest x-ray no acute cardiopulmonary disease process Review of Systems Positive point and negatives has been mentioned in the HPI, complete review of systems was performed and all other systems are negative Past Medical History Past Medical History: Coronary Artery Disease (CAD), Chest Pain / Angina, Heart Failure, COPD, Diabetes Mellitus, GERD/Reflux, Hearing Disorder / Deafness, Hyperlipidemia, Hypertension, Myocardial Infarction (PR), Pneumonia, Supraventricular Tachycardia (SVT), Vascular Disorder Additional Past Medical History / Comment(s): Stomach pain, recent hospitalization for diverticulitis. Ischemic CMP, nonsustained ventriclar arrhythmia, systolic heart failure, PR x 2 in 2001, 1994, kidney stones, gout bilateral feet/ toes, hx bilat tinnitis, stomach ulcers 2020 Last Myocardial Infarction Date:: 2001 History of Any Multi-Drug Resistant Organisms: None Reported Past Surgical History: Bowel Resection, Cardiac Ablation, Cholecystectomy, Heart Catheterization, Heart Catheterization With Stent, Joint Replacement, Orthopedic Surgery Additional Past Surgical History / Comment(s): PCIs with total 6 stents per patient, cardiac ablation-AVRNT, EPS, R caratid stent, R knee arthroscopy, bilateral total knee replacements x2-L side became infected-had I&D, bilateral shoulder rotator cuff surgeries with R side done 3 times, L ankle surgery, bilateral carpal tunnel releases, colonoscopy. EGD lft shoulder x1. Low anterior partial colon resection Nov 2023. Past Anesthesia/Blood Transfusion Reactions: No Reported Reaction Additional Past Anesthesia/Blood Transfusion Reaction / Comm: never had a blood tranfusion Date of Last Stent Placement:: 02/05/19 Past Psychological History: No Psychological Hx Reported Smoking Status: Former smoker - Past Family History Father History Unknown: Yes Additional Family Medical History / Comment(s): Pt does not know his father's history. His parents were when he was 6 yrs old. Mother History Unknown: Yes Family Medical History: Cancer Additional Family Medical History / Comment(s): Pt states mother had some form of cancer which she from at the age of 77yrs. Medications and Allergies Home Medications Medication Instructions Recorded Confirmed Type metFORMIN HCL [Glucophage] 1,000 mg PO BID 06/07/14 05/09/24 History Nitroglycerin Sl Tabs [Nitrostat] 0.4 mg SL Q5M PRN 07/17/21 05/09/24 History allopurinoL [Zyloprim] 100 mg PO DAILY 07/17/21 05/09/24 History carvediloL [Coreg] 12.5 mg PO BID 11/27/21 05/09/24 History Aspirin EC [Ecotrin Low Dose] 81 mg PO DAILY 02/10/22 05/09/24 History Atorvastatin [Lipitor] 80 mg PO DAILY 03/07/22 05/09/24 History Albuterol Inhaler [Ventolin Hfa 2 puff INHALATION RT-Q4H PRN 07/22/23 05/09/24 History Inhaler] Insulin NPH Hum/Reg Insulin Hm 30 unit SQ BID@0800,1700 10/16/23 05/09/24 History [NovoLIN 70-30 100 Unit/ml Vial] Ondansetron Odt [Zofran ODT] 4 mg PO Q8HR PRN #10 tab 02/26/24 05/09/24 Rx Ferrous Sulfate [Iron (65 MG 325 mg PO DAILY 03/12/24 05/09/24 History Elemental)] Magnesium 250 mg PO DAILY 03/12/24 05/09/24 History Acetaminophen Tab [Tylenol] 500 - 1,000 mg PO Q6H PRN MDD 8 05/09/24 05/09/24 History TABS Ciprofloxacin HCl [Cipro] 500 mg PO BID 10 Days #20 tab 05/14/24 Rx Cyanocobalamin (Vitamin B-12) 1,000 mcg PO DAILY #30 tablet 05/14/24 Rx [Vitamin B-12] Allergies Allergy/AdvReac Type Severity Reaction Status Date / Time No Known Allergies Allergy Verified 03/15/24 10:03 Physical Exam Vitals: Vital Signs Temp Pulse Resp BP Pulse Ox 05/11/24 10:15 99.7 F H 72 20 97/53 97 05/11/24 08:42 20 05/11/24 08:20 24 05/11/24 07:10 102.9 F H 85 18 99/45 93 L 05/11/24 06:47 85 20 95 05/11/24 00:04 99.9 F H 42 L 20 105/45 96 05/10/24 23:10 100.6 F H 85 05/10/24 19:49 102.9 F H 94 20 133/72 94 L 05/10/24 15:50 100.1 F H 79 18 113/56 96 Intake and Output 05/10/24 05/11/24 05/11/24 22:59 06:59 14:59 Intake Total 150 118 Balance 150 118 Intake: Oral 150 118 Other: Voiding Method Toilet Toilet # Voids 2 GENERAL DESCRIPTION: Elderly male lying in bed, no distress. No tachypnea or accessory muscle of respiration use. HEENT: Shows Pallor , no scleral icterus. Oral mucous membrane is dry. No phar yngeal erythema or thrush NECK: Trachea central, no thyromegaly. LUNGS: Unlabored breathing. Clear to auscultation anteriorly. No wheeze or crackle. HEART: S1, S2, regular rate and rhythm. No loud murmur ABDOMEN: Soft, no tenderness , guarding or rigidity, no organomegaly EXTREMITIES: No edema of feet. SKIN: No rash, no masses palpable. NEUROLOGICAL: The patient is awake, alert, oriented x3, mood and affect normal. Results CBC & Chem 7: 05/12/24 06:35 05/12/24 06:35 Labs: Abnormal Lab Results - Last 24 Hours (Table) 05/10/24 05/10/24 05/10/24 Range/Units 11:43 17:22 21:09 WBC (4.50-10.00) X 10*3/uL RBC (4.40-5.60) X 10*6/uL Hgb (13.0-17.0) g/dL Hct (39.6-50.0) % MCV (80.0-97.0) FL MCHC (32.0-37.0) g/dL RDW (11.5-14.5) % Plt Count (140-440) X 10*3/uL Lymphocytes # (0.90-5.00) X 10*3/uL Eosinophils # (0.04-0.35) X 10*3/uL Carbon Dioxide (21.6-31.8) mmol/L Anion Gap (4.00-12.00) mmol/L Glucose (70-110) mg/dL POC Glucose (mg/dL) 183 H 183 H 186 H (70-110) mg/dL Calcium (8.7-10.3) mg/dL 05/11/24 05/11/24 05/11/24 Range/Units 06:18 06:34 06:34 WBC 3.19 L (4.50-10.00) X 10*3/uL RBC 3.59 L (4.40-5.60) X 10*6/uL Hgb 10.8 L (13.0-17.0) g/dL Hct 35.0 L (39.6-50.0) % MCV 97.5 H (80.0-97.0) FL MCHC 30.9 L (32.0-37.0) g/dL RDW 14.9 H (11.5-14.5) % Plt Count 47 L (140-440) X 10*3/uL Lymphocytes # 0.34 L (0.90-5.00) X 10*3/uL Eosinophils # 0 L (0.04-0.35) X 10*3/uL Carbon Dioxide 19.1 L (21.6-31.8) mmol/L Anion Gap 12.90 H (4.00-12.00) mmol/L Glucose 153 H (70-110) mg/dL POC Glucose (mg/dL) 138 H (70-110) mg/dL Calcium 8.0 L (8.7-10.3) mg/dL Microbiology - Last 24 Hours (Table) 05/08/24 19:25 Blood Culture - Preliminary Blood 05/08/24 19:10 Blood Culture - Preliminary Blood 05/08/24 18:58 Urine Culture - Preliminary Urine,Voided Gram Neg Bacilli Assessment and Plan (1) Fever Status: Acute Code(s): R50.9 - FEVER, UNSPECIFIED SNOMED Code(s): 611156239 (2) UTI (urinary tract infection) Status: Acute Code(s): N39.0 - URINARY TRACT INFECTION, SITE NOT SPECIFIED SNOMED Code(s): 06522775 (3) Sepsis Status: Acute Code(s): A41.9 - SEPSIS, UNSPECIFIED ORGANISM SNOMED Code(s): 47033180 Plan: 1patient presented to hospital with fever and abdominal pain in this patient who did have a positive UA with urine culture positive for Klebsiella concerning for pyelonephritis likely etiology CT abdominal pelvis did not show evidence of colitis or abdominal abscess. Also no mention of any hydronephrosis 2patient did have improvement in his fever pattern as well as clinically mention some improvement as she will continue patient on Rocephin 2 g daily for another 24 to 48-hour before transition to oral antibiotic this was discussed with [employer] for admitting team We will follow on clinical condition and cultures to further adjust medication if needed Thank you for this consultation we will follow the patient along with you Dictation was produced using [employer] dictation software. please excuse any grammatical, word or spelling errors. Time with Patient: Greater than 30
--- NOTE | 2024-05-12 01:42 | P.PN ---
Subjective Progress Note Date: 05/11/24 Patient is a 78-year-old male with a past medical history of coronary artery disease status post stent placement, hypertension, diabetes type 2 insulin- dependent, hearing disorder/deafness, hypertension, hyperlipidemia, history of NE, SVT, chronic CHF with mildly reduced ejection fraction 40 to 45% and low anterior resection of the colon and history of diverticulitis and prior history of smoking and obesity. Patient presents to ER with complaints of abdominal pain and fever. Patient states that his abdominal pain is mainly in the lower abdomen. He has been having symptoms worsening for the past 1 to 2 days. Patient also has a history of. Diverticulitis. Otherwise denies any recent diarrhea. No complaints of vomiting. Was nauseated. Abdominal x-ray showed nonspecific bowel gas pattern without radiographic evidence for acute process. CT of the abdomen pelvis showed fat stranding changes in the left abdomen without definitive etiology. No evidence for bowel obstruction bowel wall th ickening or evidence for diverticulitis. Nodular contour of the liver suggestive of cirrhosis with portal hypertension with splenomegaly and small varices in the upper abdomen. Nonobstructing bilateral renal calculi. Laboratory data showed WBC 6.7 hemoglobin 12.5 and platelets 68 Sodium 135 potassium 4.3 chloride 104 bicarb is 20 BUN 12 and creatinine 0.89 and blood sugar 184 lactic acid 2.8 and total bili 1.8 AST ALT alk phos within normal limits amylase 52 and lipase 108 Urinalysis showed trace protein 1+ glucose moderate leukocyte esterase with WBCs 109 and many bacteria Urine influenza A B RSV and COVID-19 PCR not detected. Patient was febrile with Tmax 103 F on admission. 05/10/2024 Patient seen in follow-up today with no acute overnight issues noted. Patient continues to have voiding with no difficulties and reports to being frequently. Patient denies burning or pain at this time with urination. Preliminary urine culture showing gram-negative bacilli and awaiting finalized cultures to determine discharge antibiotics. Patient is now afebrile with no reported chest pain or shortness of breath. Patient has been up and walking with no difficulties. Will refer to outpatient urology regarding nonobstructing stones and further evaluation. 05/11/2024 Patient is seen in follow-up today continuing to have fevers of 102 overnight maintained on ceftriaxone while waiting for urine culture. Urine culture finalized showing Klebsiella with rob sensitivity blood cultures remain negative. Patient continues to be febrile and will have infectious disease evaluate the patient and appreciate input and recommendations regarding antibiotics. Patient reports his voiding and initially on admission was incontinent and having frequent dribbling and not making it to the bathroom. Patient reports he is able to make it to the bathroom and denies any difficulty in voiding or pain or urgency. Will continue gentle IV hydration and follow-up with repeat labs as patient does have history of heart failure. Encouraged to increase activity as tolerated. Will add procalcitonin along with CRP Review of systems: Constitutional: reports of feeling fatigued today although a little better, continued fevers throughout the night, or chills Cardiovascular: No reports of chest pain or palpitations Respiratory: No reports of shortness of breath or cough GI: No reports of nausea, vomiting, or diarrhea, reports not eating much. Likes to eat home food : No reports of dysuria or retention, reports urinating frequently, incontinence has improved Neurovascular: No reports of weakness or numbness All medications have been reviewed PHYSICAL EXAMINATION: Patient is sitting up in the chair, no acute distress, awake alert and oriented. Obese. HEENT: Normocephalic. Neck is supple. Pupils reactive. Nostrils clear. Oral cavity is moist. Neck reveals no JVD, carotid bruits, or thyromegaly. CHEST EXAMINATION: Trachea is central. Symmetrical expansion. Lung dash clear to auscultation and percussion. CARDIAC: Normal S1, S2 with no gallops. No murmurs ABDOMEN: Soft. Obese. Bowel sounds present. Nontender.. No organomegaly. No abdominal bruits. Extremities: reveal no edema. No clubbing or cyanosis Neurologically awake, alert, oriented x3 with well-coordinated movements. No focal deficits noted Skin: No rash or skin lesions. Psychiatric: Cooperative. Non-suicidal Musculoskeletal: No joint swelling or deformity. Normal range of motion. Assessment: Acute urinary tract infection. Present on admission. Patient presented with fever and lower abdominal pain. 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 Monitor respiratory status closely. Patient is eating and drinking more will discontinue fluids Continue with antibiotics ceftriaxone and follow-up urine culture report. Cultures finalized showing Klebsiella with rob sensitivity. Blood cultures are negative. Patient continues to have fevers and will consult infectious disease and appreciate input and recommendations. Hopeful for transitioning to oral steroids on discharge Continue with insulin sliding scale and insulin regimen and adjust accordingly Postvoid residual was ordered. Continue to follow closely. Patient will need urology follow-up outpatient for further evaluation of nonobstructing stones Will follow-up with repeat labs and replace electrolytes per protocol Monitor for continued fevers and treat accordingly Possible discharge planning in the next 24 to 48 hours The impression and plan of care has been dictated by Kelly Sumner, Nurse Practitioner as directed. Dr. Sinan MD I have performed a history and examination and MDM of this patient, discussed the same with the dictator, and agree with the dictator's assessment and plan as written ,documented as a scribe. Based on total visit time, I have performed more than 50% of the visit. Objective - Vital Signs Vital signs: Vital Signs Temp 102.9 F H 05/11/24 07:10 Pulse 85 05/11/24 07:10 Resp 24 05/11/24 08:20 BP 99/45 05/11/24 07:10 Pulse Ox 93 L 05/11/24 07:10 FiO2 Intake & Output 05/10/24 05/11/24 05/11/24 18:59 06:59 18:59 Intake Total 236 150 118 Balance 236 150 118 Intake: Oral 236 150 118 Other: Voiding Method Toilet Toilet # Voids 3 2 - Labs CBC & Chem 7: 05/11/24 06:34 05/11/24 06:34 Labs: Abnormal Lab Results - Last 24 Hours (Table) 05/10/24 05/10/24 05/10/24 Range/Units 06:31 06:31 06:31 RBC 3.66 L (4.40-5.60) X 10*6/uL Hgb 11.1 L (13.0-17.0) g/dL Hct 34.9 L (39.6-50.0) % MCHC 31.8 L (32.0-37.0) g/dL RDW 15.0 H (11.5-14.5) % Plt Count 47 L (140-440) X 10*3/uL Immature Gran # 0.06 H (0.00-0.04) X 10*3/uL Lymphocytes # 0.61 L (0.90-5.00) X 10*3/uL Eosinophils # 0.01 L (0.04-0.35) X 10*3/uL Carbon Dioxide 19.2 L (21.6-31.8) mmol/L Anion Gap 14.80 H (4.00-12.00) mmol/L Glucose 135 H (70-110) mg/dL POC Glucose (mg/dL) (70-110) mg/dL Hemoglobin A1c 7.1 H (<=6.0) % Calcium 8.6 L (8.7-10.3) mg/dL Vitamin B12 <150.0 L (200.0-944.0) pg/mL 05/10/24 05/10/24 05/10/24 Range/Units 11:43 17:22 21:09 RBC (4.40-5.60) X 10*6/uL Hgb (13.0-17.0) g/dL Hct (39.6-50.0) % MCHC (32.0-37.0) g/dL RDW (11.5-14.5) % Plt Count (140-440) X 10*3/uL Immature Gran # (0.00-0.04) X 10*3/uL Lymphocytes # (0.90-5.00) X 10*3/uL Eosinophils # (0.04-0.35) X 10*3/uL Carbon Dioxide (21.6-31.8) mmol/L Anion Gap (4.00-12.00) mmol/L Glucose (70-110) mg/dL POC Glucose (mg/dL) 183 H 183 H 186 H (70-110) mg/dL Hemoglobin A1c (<=6.0) % Calcium (8.7-10.3) mg/dL Vitamin B12 (200.0-944.0) pg/mL 05/11/24 Range/Units 06:18 RBC (4.40-5.60) X 10*6/uL Hgb (13.0-17.0) g/dL Hct (39.6-50.0) % MCHC (32.0-37.0) g/dL RDW (11.5-14.5) % Plt Count (140-440) X 10*3/uL Immature Gran # (0.00-0.04) X 10*3/uL Lymphocytes # (0.90-5.00) X 10*3/uL Eosinophils # (0.04-0.35) X 10*3/uL Carbon Dioxide (21.6-31.8) mmol/L Anion Gap (4.00-12.00) mmol/L Glucose (70-110) mg/dL POC Glucose (mg/dL) 138 H (70-110) mg/dL Hemoglobin A1c (<=6.0) % Calcium (8.7-10.3) mg/dL Vitamin B12 (200.0-944.0) pg/mL Microbiology - Last 24 Hours (Table) 05/08/24 19:25 Blood Culture - Preliminary Blood 05/08/24 19:10 Blood Culture - Preliminary Blood 05/08/24 18:58 Urine Culture - Preliminary Urine,Voided Gram Neg Bacilli
[2024-05-12 06:37] LABS: Glucose,Whole Blood 126 mg/dL (70-110)
[2024-05-12 10:29] LABS: BUN/Creat Ratio 15.91 Ratio (12.00-20.00); Blood Urea Nitrogen 17.5 mg/dL (9.0-27.0); Calcium 8.1 mg/dL (8.7-10.3); Carbon Dioxide 17.2 mmol/L (21.6-31.8); Chloride 108 mmol/L (96-109); Glucose 132 mg/dL (70-110); Sodium 139 mmol/L (135-145)
[2024-05-12 11:02] LABS: Basophils # (A) 0.01 X 10*3/uL (0.00-0.10); Basophils % (A) 0.4 %; Eosinophils # (A) 0 X 10*3/uL (0.04-0.35); Eosinophils % (A) 0 %; HGB 10.4 g/dL (13.0-17.0); Immature Platelet Fraction 5.2 % (1.1-6.1); Lymphocytes % (A) 20.8 %; MCH 30.1 pg (27.0-32.0); MCHC 31.5 g/dL (32.0-37.0); MCV 95.4 FL (80.0-97.0); Mean Platelet Volume 11.5 FL (9.5-12.2); Monocytes # (A) 0.46 X 10*3/uL (0.20-1.00); Monocytes % (A) 19.2 %; NRBC Per 100 WBC 0 X 10*3/uL (0.00-0.01); Neutrophils # (A) 1.42 X 10*3/uL (1.80-7.70); Neutrophils % (A) 59.2 %; Platelet Count 56 X 10*3/uL (140-440); RBC 3.46 X 10*6/uL (4.40-5.60); RDW 15.1 % (11.5-14.5)
[2024-05-12 12:04] LABS: Glucose,Whole Blood 211 mg/dL (70-110)
--- NOTE | 2024-05-12 16:31 | P.PN ---
Subjective Progress Note Date: 05/12/24 Patient is a 78-year-old male with a past medical history of coronary artery disease status post stent placement, hypertension, diabetes type 2 insulin- dependent, hearing disorder/deafness, hypertension, hyperlipidemia, history of PR, SVT, chronic CHF with mildly reduced ejection fraction 40 to 45% and low anterior resection of the colon and history of diverticulitis and prior history of smoking and obesity. Patient presents to ER with complaints of abdominal pain and fever. Patient states that his abdominal pain is mainly in the lower abdomen. He has been having symptoms worsening for the past 1 to 2 days. Patient also has a history of. Diverticulitis. Otherwise denies any recent diarrhea. No complaints of vomiting. Was nauseated. Abdominal x-ray showed nonspecific bowel gas pattern without radiographic evidence for acute process. CT of the abdomen pelvis showed fat stranding changes in the left abdomen without definitive etiology. No evidence for bowel obstruction bowel wall th ickening or evidence for diverticulitis. Nodular contour of the liver suggestive of cirrhosis with portal hypertension with splenomegaly and small varices in the upper abdomen. Nonobstructing bilateral renal calculi. Laboratory data showed WBC 6.7 hemoglobin 12.5 and platelets 68 Sodium 135 potassium 4.3 chloride 104 bicarb is 20 BUN 12 and creatinine 0.89 and blood sugar 184 lactic acid 2.8 and total bili 1.8 AST ALT alk phos within normal limits amylase 52 and lipase 108 Urinalysis showed trace protein 1+ glucose moderate leukocyte esterase with WBCs 109 and many bacteria Urine influenza A B RSV and COVID-19 PCR not detected. Patient was febrile with Tmax 103 F on admission. 05/10/2024 Patient seen in follow-up today with no acute overnight issues noted. Patient continues to have voiding with no difficulties and reports to being frequently. Patient denies burning or pain at this time with urination. Preliminary urine culture showing gram-negative bacilli and awaiting finalized cultures to determine discharge antibiotics. Patient is now afebrile with no reported chest pain or shortness of breath. Patient has been up and walking with no difficulties. Will refer to outpatient urology regarding nonobstructing stones and further evaluation. 05/11/2024 Patient is seen in follow-up today continuing to have fevers of 102 overnight maintained on ceftriaxone while waiting for urine culture. Urine culture finalized showing Klebsiella with rob sensitivity blood cultures remain negative. Patient continues to be febrile and will have infectious disease evaluate the patient and appreciate input and recommendations regarding antibiotics. Patient reports his voiding and initially on admission was incontinent and having frequent dribbling and not making it to the bathroom. Patient reports he is able to make it to the bathroom and denies any difficulty in voiding or pain or urgency. Will continue gentle IV hydration and follow-up with repeat labs as patient does have history of heart failure. Encouraged to increase activity as tolerated. Will add procalcitonin along with CRP 05/12/2024 Patient is seen in follow-up today did have an overnight fever 1 time of 101 F ahrenheit. Infectious disease following and patient is maintained on antibiotics in the form of ceftriaxone as urine culture show Klebsiella with multiple sensitivities. Patient was reporting some lower left abdominal pain and cramping and continues to have incontinence and dribbling with frequent urination will consult urology and appreciate input and recommendations as there was noted bilateral renal calculi nonobstructing. Patient denies any previous history of kidney stones. Patient currently afebrile and tolerating oral intake with no reported nausea or vomiting. Will discontinue IV fluids. Procalcitonin was noted to be 0.57 and CRP is 5.5. Continue monitoring blood sugars and will adjust insulins accordingly. Encouraged increase activity as tolerated. Review of systems: Constitutional: reports of feeling fatigued today although a little better, continued fevers throughout the night, or chills Cardiovascular: No reports of chest pain or palpitations Respiratory: No reports of shortness of breath or cough GI: No reports of nausea, vomiting, or diarrhea, reports not eating much. Likes to eat home food : No reports of dysuria or retention, reports urinating frequently, incontinence has improved Neurovascular: No reports of weakness or numbness All medications have been reviewed PHYSICAL EXAMINATION: Patient is sitting up in the chair, no acute distress, awake alert and oriented. Obese. HEENT: Normocephalic. Neck is supple. Pupils reactive. Nostrils clear. Oral cavity is moist. Neck reveals no JVD, carotid bruits, or thyromegaly. CHEST EXAMINATION: Trachea is central. Symmetrical expansion. Lung dash clear to auscultation and percussion. CARDIAC: Normal S1, S2 with no gallops. No murmurs ABDOMEN: Soft. Obese. Bowel sounds present. Nontender.. No organomegaly. No abdominal bruits. Extremities: reveal no edema. No clubbing or cyanosis Neurologically awake, alert, oriented x3 with well-coordinated movements. No focal deficits noted Skin: No rash or skin lesions. Psychiatric: Cooperative. Non-suicidal Musculoskeletal: No joint swelling or deformity. Normal range of motion. Assessment: Acute urinary tract infection. Present on admission. Patient presented with fever and lower abdominal pain. Cultures finalized with Klebsiella Hypovolemic hyponatremia, improving on IV fluids. Bilateral nonobstructing renal calculi noted on imaging no hydronephrosis noted Chronic thrombocytopenia Liver cirrhosis with portal hypertension with splenomegaly and small varices in the upper abdomen Coronary artery disease history of stent placement Chronic CHF with systolic dysfunction ejection fraction 40 to 45%, not in exacerbation History of PR Hearing disorder/deafness Diabetes type 2 insulin-dependent COPD not in exacerbation Prior history of smoking Hypertension History of SVT History of bowel resection and diverticulitis DVT prophylaxis with heparin subcu Obesity with BMI 37.9 GI prophylaxis Full code Plan: Patient was continued on IV hydration with normal saline. Sodium improved and patient is eating and drinking and will discontinue fluids. Monitor respiratory status closely. Continue with antibiotics in the form of ceftriaxone. Cultures finalized showing Klebsiella with rob sensitivity. Blood cultures are negative. Patient continues to have fevers although less frequent and is improving. Patient is reporting some lower abdominal left pain and cramping and will consult urology and appreciate input and recommendations as there was noted kidney stones that are nonobstructing on imaging Continue with insulin sliding scale and insulin regimen and adjust accordingly Postvoid residual was ordered. Continue to follow closely. Patient will need urology follow-up outpatient as well Will follow-up with repeat labs and replace electrolytes per protocol Monitor for continued fevers and treat accordingly Encouraged to increase activity as tolerated The impression and plan of care has been dictated by Kelly Sumner, Nurse Practitioner as directed. Dr. Sinan MD I have performed a history and examination and MDM of this patient, discussed the same with the dictator, and agree with the dictator's assessment and plan as written ,documented as a scribe. Based on total visit time, I have performed more than 50% of the visit. Objective - Vital Signs Vital signs: Vital Signs Temp 98.9 F 05/12/24 13:38 Pulse 74 05/12/24 13:38 Resp 18 05/12/24 13:38 BP 111/67 05/12/24 13:38 Pulse Ox 97 05/12/24 13:38 FiO2 Intake & Output 05/11/24 05/12/24 05/12/24 18:59 06:59 18:59 Intake Total 476 59 Output Total 100 Balance 476 -100 59 Intake: Oral 476 59 Output: Urine 100 Other: Voiding Method Toilet Toilet Urinal # Voids 4 1 2 # Bowel Movements 2 1 - Labs CBC & Chem 7: 05/12/24 06:35 05/12/24 06:35 Labs: Abnormal Lab Results - Last 24 Hours (Table) 05/11/24 05/11/24 05/11/24 Range/Units 17:04 21:06 23:32 WBC (4.50-10.00) X 10*3/uL RBC (4.40-5.60) X 10*6/uL Hgb (13.0-17.0) g/dL Hct (39.6-50.0) % MCHC (32.0-37.0) g/dL RDW (11.5-14.5) % Plt Count (140-440) X 10*3/uL Neutrophils # (1.80-7.70) X 10*3/uL Lymphocytes # (0.90-5.00) X 10*3/uL Eosinophils # (0.04-0.35) X 10*3/uL Carbon Dioxide (21.6-31.8) mmol/L Anion Gap (4.00-12.00) mmol/L Glucose (70-110) mg/dL POC Glucose (mg/dL) 142 H 202 H (70-110) mg/dL Calcium (8.7-10.3) mg/dL C-Reactive Protein 5.5 H (<1.0) mg/dL Procalcitonin (0.02-0.09) ng/mL 05/11/24 05/12/24 05/12/24 Range/Units 23:32 06:35 06:35 WBC 2.40 L (4.50-10.00) X 10*3/uL RBC 3.46 L (4.40-5.60) X 10*6/uL Hgb 10.4 L (13.0-17.0) g/dL Hct 33.0 L (39.6-50.0) % MCHC 31.5 L (32.0-37.0) g/dL RDW 15.1 H (11.5-14.5) % Plt Count 56 L (140-440) X 10*3/uL Neutrophils # 1.42 L (1.80-7.70) X 10*3/uL Lymphocytes # 0.50 L (0.90-5.00) X 10*3/uL Eosinophils # 0 L (0.04-0.35) X 10*3/uL Carbon Dioxide 17.2 L (21.6-31.8) mmol/L Anion Gap 13.80 H (4.00-12.00) mmol/L Glucose 132 H (70-110) mg/dL POC Glucose (mg/dL) (70-110) mg/dL Calcium 8.1 L (8.7-10.3) mg/dL C-Reactive Protein (<1.0) mg/dL Procalcitonin 0.57 H (0.02-0.09) ng/mL 05/12/24 05/12/24 Range/Units 06:36 12:00 WBC (4.50-10.00) X 10*3/uL RBC (4.40-5.60) X 10*6/uL Hgb (13.0-17.0) g/dL Hct (39.6-50.0) % MCHC (32.0-37.0) g/dL RDW (11.5-14.5) % Plt Count (140-440) X 10*3/uL Neutrophils # (1.80-7.70) X 10*3/uL Lymphocytes # (0.90-5.00) X 10*3/uL Eosinophils # (0.04-0.35) X 10*3/uL Carbon Dioxide (21.6-31.8) mmol/L Anion Gap (4.00-12.00) mmol/L Glucose (70-110) mg/dL POC Glucose (mg/dL) 126 H 211 H (70-110) mg/dL Calcium (8.7-10.3) mg/dL C-Reactive Protein (<1.0) mg/dL Procalcitonin (0.02-0.09) ng/mL Microbiology - Last 24 Hours (Table) 05/08/24 19:25 Blood Culture - Preliminary Blood 05/08/24 19:10 Blood Culture - Preliminary Blood 05/08/24 18:58 Urine Culture - Final Urine,Voided Klebsiella pneumoniae
[2024-05-12 17:12] LABS: Glucose,Whole Blood 161 mg/dL (70-110)
[2024-05-12 21:17] LABS: Glucose,Whole Blood 125 mg/dL (70-110)
[2024-05-13 05:56] LABS: Glucose,Whole Blood 135 mg/dL (70-110)
[2024-05-13 11:09] LABS: Glucose,Whole Blood 139 mg/dL (70-110)
--- NOTE | 2024-05-13 13:44 | P.GSCN ---
History of Present Illness Consult date: 05/13/24 Reason for Consult: Bilateral renal stones History of present illness: This is a 78-year-old male admitted to the hospital with a Klebsiella pneumoniae UTI. Patient presented to the hospital with abdominal pain associated with a fever of 103. Urine analysis was positive on presentation, and urine culture is growing E. coli. He denies any dysuria or gross hematuria, but was having urgency with urge incontinence which is of new onset. Denies any flank pain. No previous history of kidney stones or bladder infections. No previous hernandez rgeries. In the ER he underwent a CT abdomen pelvis that showed evidence of bilateral nonobstructing renal stones fairly small, no evidence of hydronephrosis or any ureteral stones or any bladder pathology. Past Medical History Past Medical History: Coronary Artery Disease (CAD), Chest Pain / Angina, Heart Failure, COPD, Diabetes Mellitus, GERD/Reflux, Hearing Disorder / Deafness, Hyperlipidemia, Hypertension, Myocardial Infarction (AK), Pneumonia, Supra ventricular Tachycardia (SVT), Vascular Disorder Additional Past Medical History / Comment(s): Stomach pain, recent hospitalization for diverticulitis. Ischemic CMP, nonsustained ventriclar arrhythmia, systolic heart failure, AK x 2 in 2001, 1994, kidney stones, gout bilateral feet/ toes, hx bilat tinnitis, stomach ulcers 2020 Last Myocardial Infarction Date:: 2001 History of Any Multi-Drug Resistant Organisms: None Reported Past Surgical History: Bowel Resection, Cardiac Ablation, Cholecystectomy, Heart Catheterization, Heart Catheterization With Stent, Joint Replacement, Orthopedic Surgery Additional Past Surgical History / Comment(s): PCIs with total 6 stents per patient, cardiac ablation-AVRNT, EPS, R caratid stent, R knee arthroscopy, bilateral total knee replacements x2-L side became infected-had I&D, bilateral shoulder rotator cuff surgeries with R side done 3 times, L ankle surgery, bilateral carpal tunnel releases, colonoscopy. EGD lft shoulder x1. Low anterior partial colon resection Nov 2023. Past Anesthesia/Blood Transfusion Reactions: No Reported Reaction Additional Past Anesthesia/Blood Transfusion Reaction / Comm: never had a blood tranfusion Date of Last Stent Placement:: 02/05/19 Past Psychological History: No Psychological Hx Reported Smoking Status: Former smoker - Past Family History Father History Unknown: Yes Additional Family Medical History / Comment(s): Pt does not know his father's history. His parents were when he was 6 yrs old. Mother History Unknown: Yes Family Medical History: Cancer Additional Family Medical History / Comment(s): Pt states mother had some form of cancer which she from at the age of 77yrs. Medications and Allergies Home Medications Medication Instructions Recorded Confirmed Type metFORMIN HCL [Glucophage] 1,000 mg PO BID 06/07/14 05/09/24 History Nitroglycerin Sl Tabs [Nitrostat] 0.4 mg SL Q5M PRN 07/17/21 05/09/24 History allopurinoL [Zyloprim] 100 mg PO DAILY 07/17/21 05/09/24 History carvediloL [Coreg] 12.5 mg PO BID 11/27/21 05/09/24 History Aspirin EC [Ecotrin Low Dose] 81 mg PO DAILY 02/10/22 05/09/24 History lisinopriL [Zestril] 2.5 mg PO DAILY 02/10/22 05/09/24 History Atorvastatin [Lipitor] 80 mg PO DAILY 03/07/22 05/09/24 History Albuterol Inhaler [Ventolin Hfa 2 puff INHALATION RT-Q4H PRN 07/22/23 05/09/24 History Inhaler] Insulin NPH Hum/Reg Insulin Hm 30 unit SQ BID@0800,1700 10/16/23 05/09/24 Hist ory [NovoLIN 70-30 100 Unit/ml Vial] Ondansetron Odt [Zofran ODT] 4 mg PO Q8HR PRN #10 tab 02/26/24 05/09/24 Rx Ferrous Sulfate [Iron (65 MG 325 mg PO DAILY 03/12/24 05/09/24 History Elemental)] Magnesium 250 mg PO DAILY 03/12/24 05/09/24 History Acetaminophen Tab [Tylenol] 500 - 1,000 mg PO Q6H PRN MDD 8 05/09/24 05/09/24 History TABS Allergies Allergy/AdvReac Type Severity Reaction Status Date / Time No Known Allergies Allergy Verified 03/15/24 10:03 Surgical - Exam Vital Signs Temp Pulse Resp BP Pulse Ox 103 F H 87 18 133/59 95 05/08/24 18:12 05/08/24 18:12 05/08/24 18:12 05/08/24 18:12 05/08/24 18:12 - General no distress, no pain - Eyes normal ocular movement, no pale - ENT normal nares, normal mucosa - Respiratory normal expansion, normal respiratory effort - Abdomen Abdomen: soft, non tender - Psychiatric oriented to time, oriented to person, oriented to place Results - Labs 05/12/24 06:35 05/12/24 06:35 Abnormal Lab Results - Last 24 Hours (Table) 05/12/24 05/12/24 05/13/24 Range/Units 17:08 21:15 05:55 POC Glucose (mg/dL) 161 H 125 H 135 H (70-110) mg/dL 05/13/24 Range/Units 11:08 POC Glucose (mg/dL) 139 H (70-110) mg/dL Assessment and Plan Assessment: 78-year-old male manage to the hospital with a UTI. Infectious disease is on board. Urology is consulted for UTI and bilateral ureteral renal stones. Will defer to UTI management as per infectious disease, patient and is not having any urinary symptoms at baseline. I reviewed his CT scan the stones are fairly small and nonobstructive, no evidence of hydronephrosis or any large calculi. At this point given the lack of symptoms and the size of the stones no further intervention is needed from urology standpoint
[2024-05-13 17:14] LABS: Glucose,Whole Blood 151 mg/dL (70-110)
--- NOTE | 2024-05-13 17:46 | P.PN ---
Subjective Progress Note Date: 05/12/24 Principal diagnosis: Reason for follow-up is Klebsiella UTI/pyelonephritis Patient is a 78-year-old male with a past medical history significant for coronary artery disease diabetes mellitus , COPD hypertension hyperlipidemia presenting to the hospital for evaluation of generalized abdominal pain and fever, patient has been diagnosed with symptomatic urinary tract infection urine with Klebsiella. On today's evaluation that is 05/12/2024, patient did have a fever of 101 F at 2 AM the patient is afebrile since then patient is currently breathing comfortably currently on room air denies any chest pain shortness of breath or cough no nausea vomiting and no diarrhea Patient white count is 2.40 creatinine is 1.1 Objective - Vital Signs Vital signs: Vital Signs Temp 98.2 F 05/12/24 07:00 Pulse 64 05/12/24 07:00 Resp 17 05/12/24 07:00 BP 107/62 05/12/24 07:00 Pulse Ox 97 05/12/24 07:00 FiO2 Intake & Output 05/11/24 05/12/24 05/12/24 18:59 06:59 18:59 Intake Total 476 59 Output Total 100 Balance 476 -100 59 Intake: Oral 476 59 Output: Urine 100 Other: Voiding Method Toilet Toilet Urinal # Voids 4 1 # Bowel Movements 2 1 - Exam GENERAL DESCRIPTION: An elderly male lying in bed in no distress RESPIRATORY SYSTEM: Unlabored breathing , decreased breath sounds at bases HEART: S1 S2 regular rate and rhythm , ABDOMEN: Soft , no tenderness EXTREMITIES: No edema feet - Labs CBC & Chem 7: 05/12/24 06:35 05/12/24 06:35 Labs: Abnormal Lab Results - Last 24 Hours (Table) 05/11/24 05/11/24 05/11/24 Range/Units 06:34 06:34 12:08 WBC 3.19 L (4.50-10.00) X 10*3/uL RBC 3.59 L (4.40-5.60) X 10*6/uL Hgb 10.8 L (13.0-17.0) g/dL Hct 35.0 L (39.6-50.0) % MCV 97.5 H (80.0-97.0) FL MCHC 30.9 L (32.0-37.0) g/dL RDW 14.9 H (11.5-14.5) % Plt Count 47 L (140-440) X 10*3/uL Lymphocytes # 0.34 L (0.90-5.00) X 10*3/uL Eosinophils # 0 L (0.04-0.35) X 10*3/uL Carbon Dioxide 19.1 L (21.6-31.8) mmol/L Anion Gap 12.90 H (4.00-12.00) mmol/L Glucose 153 H (70-110) mg/dL POC Glucose (mg/dL) 158 H (70-110) mg/dL Calcium 8.0 L (8.7-10.3) mg/dL C-Reactive Protein (<1.0) mg/dL Procalcitonin (0.02-0.09) ng/mL 05/11/24 05/11/24 05/11/24 Range/Units 17:04 21:06 23:32 WBC (4.50-10.00) X 10*3/uL RBC (4.40-5.60) X 10*6/uL Hgb (13.0-17.0) g/dL Hct (39.6-50.0) % MCV (80.0-97.0) FL MCHC (32.0-37.0) g/dL RDW (11.5-14.5) % Plt Count (140-440) X 10*3/uL Lymphocytes # (0.90-5.00) X 10*3/uL Eosinophils # (0.04-0.35) X 10*3/uL Carbon Dioxide (21.6-31.8) mmol/L Anion Gap (4.00-12.00) mmol/L Glucose (70-110) mg/dL POC Glucose (mg/dL) 142 H 202 H (70-110) mg/dL Calcium (8.7-10.3) mg/dL C-Reactive Protein 5.5 H (<1.0) mg/dL Procalcitonin (0.02-0.09) ng/mL 05/11/24 05/12/24 Range/Units 23:32 06:36 WBC (4.50-10.00) X 10*3/uL RBC (4.40-5.60) X 10*6/uL Hgb (13.0-17.0) g/dL Hct (39.6-50.0) % MCV (80.0-97.0) FL MCHC (32.0-37.0) g/dL RDW (11.5-14.5) % Plt Count (140-440) X 10*3/uL Lymphocytes # (0.90-5.00) X 10*3/uL Eosinophils # (0.04-0.35) X 10*3/uL Carbon Dioxide (21.6-31.8) mmol/L Anion Gap (4.00-12.00) mmol/L Glucose (70-110) mg/dL POC Glucose (mg/dL) 126 H (70-110) mg/dL Calcium (8.7-10.3) mg/dL C-Reactive Protein (<1.0) mg/dL Procalcitonin 0.57 H (0.02-0.09) ng/mL Microbiology - Last 24 Hours (Table) 05/08/24 19:25 Blood Culture - Preliminary Blood 05/08/24 19:10 Blood Culture - Preliminary Blood 05/08/24 18:58 Urine Culture - Final Urine,Voided Klebsiella pneumoniae Assessment and Plan (1) Fever Current Visit: Yes Status: Acute Code(s): R50.9 - FEVER, UNSPECIFIED SNOMED Code(s): 053673502 (2) UTI (urinary tract infection) Current Visit: Yes Status: Acute Code(s): N39.0 - URINARY TRACT INFECTION, SITE NOT SPECIFIED SNOMED Code(s): 94088168 Plan: 1patient presented to hospital with fever and abdominal pain in this patient who did have a positive UA with urine culture positive for Klebsiella concerning for pyelonephritis likely etiology CT abdominal pelvis did not show evidence of colitis or abdominal abscess. Also no mention of any hydronephrosis 2patient did have improvement in his fever pattern and showed clinical improvement as well we will continue patient on IV Rocephin for another day or 2 before transition to oral antibiotics Dictation was produced using [employer] dictation software. please excuse any grammatical, word or spelling errors. Time with Patient: Less than 30
--- NOTE | 2024-05-13 17:47 | P.PN ---
Subjective Progress Note Date: 05/13/24 Principal diagnosis: Reason for follow-up is Klebsiella UTI/pyelonephritis Patient is a 78-year-old male with a past medical history significant for coronary artery disease diabetes mellitus , COPD hypertension hyperlipidemia presenting to the hospital for evaluation of generalized abdominal pain and fever, patient has been diagnosed with symptomatic urinary tract infection urine with Klebsiella. On today's evaluation that is 05/13/2024, Patient did have improvement of his fever pattern with a low-grade fever 100.2 at 7 AM the patient is afebrile since then patient is breathing comfortably on room air denies any chest pain shortness of breath or cough no nausea vomiting no abdominal pain no diarrhea No new labs obtained today blood culture negative Objective - Vital Signs Vital signs: Vital Signs Temp 100.2 F H 05/13/24 07:00 Pulse 68 05/13/24 08:00 Resp 20 05/13/24 08:00 BP 114/58 05/13/24 07:00 Pulse Ox 95 05/13/24 07:00 FiO2 Intake & Output 05/12/24 05/13/24 05/13/24 18:59 06:59 18:59 Intake Total 59 590 Balance 59 590 Intake: Oral 59 590 Other: Voiding Method Toilet Toilet Urinal Urinal # Voids 2 2 - Exam GENERAL DESCRIPTION: An elderly male lying in bed in no distress RESPIRATORY SYSTEM: Unlabored breathing , decreased breath sounds at bases HEART: S1 S2 regular rate and rhythm , ABDOMEN: Soft , no tenderness EXTREMITIES: No edema feet - Labs CBC & Chem 7: 05/12/24 06:35 05/12/24 06:35 Labs: Abnormal Lab Results - Last 24 Hours (Table) 05/12/24 05/12/24 05/13/24 Range/Units 17:08 21:15 05:55 POC Glucose (mg/dL) 161 H 125 H 135 H (70-110) mg/dL 05/13/24 Range/Units 11:08 POC Glucose (mg/dL) 139 H (70-110) mg/dL Assessment and Plan (1) Fever Current Visit: Yes Status: Acute Code(s): R50.9 - FEVER, UNSPECIFIED SNOMED Code(s): 973928169 (2) UTI (urinary tract infection) Current Visit: Yes Status: Acute Code(s): N39.0 - URINARY TRACT INFECTION, SITE NOT SPECIFIED SNOMED Code(s): 80108859 Plan: 1patient presented to hospital with fever and abdominal pain in this patient who did have a positive UA with urine culture positive for Klebsiella concerning for pyelonephritis likely etiology CT abdominal pelvis did not show evidence of colitis or abdominal abscess. Also no mention of any hydronephrosis 2patient did have improvement in his fever pattern and blood culture has been negative continue with Rocephin and finishing therapy with oral Cipro 500 mg twice a day for 10 days on discharge Dictation was produced using [employer] dictation software. please excuse any grammatical, word or spelling errors. Time with Patient: Less than 30
--- NOTE | 2024-05-13 19:16 | CDI ---
Documentation Clarification Form Date: 05/13/2024 06:52:02 PM From: Alma Rosa Armendariz RN, CCDS Phone: [phone] Admit Date: 05/10/2024 09:18:00 AM Patient Name: Vasquez Johnson Visit Number: [id number] Discharge Date: ATTENTION: The Clinical Documentation Specialists (CDI) and [facility] Coding Staff appreciate your assistance in clarifying documentation. Please respond to the clarification below the line at the bottom and electronically sign. The CDI & [facility] Coding staff will review the response and follow-up if needed. Please note: Queries are made part of the Legal Health Record. If you have any questions, please contact the author of this message via ITS. Dr. Carey Thomas The patient has presenting to the hospital 3 days ago for evaluation of generalized abdominal pain and fever. On presentation to the hospital did have a temperature of 103 F and spike another fever of 102.9 F Based on this information and the findings below, is there an additional diagnosis that is clinically appropriate for this patient? History/Risk Factors: Coronary Artery Disease (CAD), Heart Failure, COPD, Diabetes Mellitus, GERD/Reflux, Clinical Indicators: 78-year-old male present with generalized pain lower abdomen and fever. WBC WBC 5.47 Lactic acid: 2.8 Blood cultures: Pending 05/08 Urine: Urine Nitrite -Positive, Ur Leukocyte Esterase-moderate; Urine Bacteria-Many Urine culture: finalized with Klebsiella pneumoniae CT of abdominal pelvis 5 stranding changes in the left abdominal without definitive etiology no evidence for bowel obstruction 05/10 VS (15:50) 113.56 79 18 100.1, VS (19:49) 102.9 94 05/11 CXR: No acute process Treatment: Rocephin 2 GM IVPB Daily .9 NS 1,000 Bolus 05/08 Is there an additional diagnosis that is clinically appropriate for this patient? [ x ] Sepsis, secondary to UTI culture positive for Klebsiella pneumoniae, present on admission [ ] Sepsis ruled out [ ] No additional diagnosis/not clinically significant [ ] Other, please specify [ ] Unable to determine SIRS Criteria: 2 or more of the following may indicate SIRS Temperature < 96.8F (36C) or > 101.0F (38.3C) Heart Rate > 90 bpm Respiratory Rate > 20 breaths/min or PaCO2 < 32 mmHg White Blood Cell Count > 12,000 or < 4,000 cells/mm3 or > 10% bands (Template Last Reviewed: November 2022) [facility]
[2024-05-13 20:43] LABS: Glucose,Whole Blood 167 mg/dL (70-110)
[2024-05-14 05:37] LABS: Glucose,Whole Blood 145 mg/dL (70-110)
--- NOTE | 2024-05-14 06:28 | P.PN ---
Subjective Progress Note Date: 05/13/24 Patient is a 78-year-old male with a past medical history of coronary artery disease status post stent placement, hypertension, diabetes type 2 insulin- dependent, hearing disorder/deafness, hypertension, hyperlipidemia, history of NH, SVT, chronic CHF with mildly reduced ejection fraction 40 to 45% and low anterior resection of the colon and history of diverticulitis and prior history of smoking and obesity. Patient presents to ER with complaints of abdominal pain and fever. Patient states that his abdominal pain is mainly in the lower abdomen. He has been having symptoms worsening for the past 1 to 2 days. Patient also has a history of. Diverticulitis. Otherwise denies any recent diarrhea. No complaints of vomiting. Was nauseated. Abdominal x-ray showed nonspecific bowel gas pattern without radiographic evidence for acute process. CT of the abdomen pelvis showed fat stranding changes in the left abdomen without definitive etiology. No evidence for bowel obstruction bowel wall th ickening or evidence for diverticulitis. Nodular contour of the liver suggestive of cirrhosis with portal hypertension with splenomegaly and small varices in the upper abdomen. Nonobstructing bilateral renal calculi. Laboratory data showed WBC 6.7 hemoglobin 12.5 and platelets 68 Sodium 135 potassium 4.3 chloride 104 bicarb is 20 BUN 12 and creatinine 0.89 and blood sugar 184 lactic acid 2.8 and total bili 1.8 AST ALT alk phos within normal limits amylase 52 and lipase 108 Urinalysis showed trace protein 1+ glucose moderate leukocyte esterase with WBCs 109 and many bacteria Urine influenza A B RSV and COVID-19 PCR not detected. Patient was febrile with Tmax 103 F on admission. 05/10/2024 Patient seen in follow-up today with no acute overnight issues noted. Patient continues to have voiding with no difficulties and reports to being frequently. Patient denies burning or pain at this time with urination. Preliminary urine culture showing gram-negative bacilli and awaiting finalized cultures to determine discharge antibiotics. Patient is now afebrile with no reported chest pain or shortness of breath. Patient has been up and walking with no difficulties. Will refer to outpatient urology regarding nonobstructing stones and further evaluation. 05/11/2024 Patient is seen in follow-up today continuing to have fevers of 102 overnight maintained on ceftriaxone while waiting for urine culture. Urine culture finalized showing Klebsiella with rob sensitivity blood cultures remain negative. Patient continues to be febrile and will have infectious disease evaluate the patient and appreciate input and recommendations regarding antibiotics. Patient reports his voiding and initially on admission was incontinent and having frequent dribbling and not making it to the bathroom. Patient reports he is able to make it to the bathroom and denies any difficulty in voiding or pain or urgency. Will continue gentle IV hydration and follow-up with repeat labs as patient does have history of heart failure. Encouraged to increase activity as tolerated. Will add procalcitonin along with CRP 05/12/2024 Patient is seen in follow-up today did have an overnight fever 1 time of 101 F ahrenheit. Infectious disease following and patient is maintained on antibiotics in the form of ceftriaxone as urine culture show Klebsiella with multiple sensitivities. Patient was reporting some lower left abdominal pain and cramping and continues to have incontinence and dribbling with frequent urination will consult urology and appreciate input and recommendations as there was noted bilateral renal calculi nonobstructing. Patient denies any previous history of kidney stones. Patient currently afebrile and tolerating oral intake with no reported nausea or vomiting. Will discontinue IV fluids. Procalcitonin was noted to be 0.57 and CRP is 5.5. Continue monitoring blood sugars and will adjust insulins accordingly. Encouraged increase activity as tolerated. 05/13/2024 Patient is seen in follow-up today maintained on antibiotics with infectious disease following. Urology consulted and appreciate input and recommendations as patient was experiencing some left abdominal pain that was radiating and cramps noted. Patient continues to have intermittent fevers and will monitor fo r resolution. Continue on antibiotics per infectious disease and will likely transition to oral on discharge. Patient reports feeling improved and would like to go home. Patient is agreeable to monitor overnight Review of systems: Constitutional: reports of feeling improved today, continued fevers throughout the night, or chills Cardiovascular: No reports of chest pain or palpitations Respiratory: No reports of shortness of breath or cough GI: No reports of nausea, vomiting, or diarrhea, reports not eating much. Likes to eat home food : No reports of dysuria or retention, reports urinating frequently, incontinence has improved Neurovascular: No reports of weakness or numbness All medications have been reviewed PHYSICAL EXAMINATION: Patient is sitting up in the chair, no acute distress, awake alert and oriented. Obese. HEENT: Normocephalic. Neck is supple. Pupils reactive. Nostrils clear. Oral cavity is moist. Neck reveals no JVD, carotid bruits, or thyromegaly. CHEST EXAMINATION: Trachea is central. Symmetrical expansion. Lung dash clear to auscultation and percussion. CARDIAC: Normal S1, S2 with no gallops. No murmurs ABDOMEN: Soft. Obese. Bowel sounds present. Nontender.. No organomegaly. No abdominal bruits. Extremities: reveal no edema. No clubbing or cyanosis Neurologically awake, alert, oriented x3 with well-coordinated movements. No focal deficits noted Skin: No rash or skin lesions. Psychiatric: Cooperative. Non-suicidal Musculoskeletal: No joint swelling or deformity. Normal range of motion. Assessment: Acute urinary tract infection. Present on admission. Patient presented with fever and lower abdominal pain. 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 Sodium improved and patient is eating and drinking and have discontinue fluids. Continue with antibiotics in the form of ceftriaxone. Cultures finalized showing Klebsiella with rob sensitivity. Blood cultures are negative. Patient continues to have fevers although less frequent and is improving. Patient was reporting some lower abdominal left pain and cramping and urology has evaluated recommending continued antibiotics for resolution of infection and outpatient follow-up Continue with insulin sliding scale and insulin regimen and adjust accordingly Monitor for continued fevers and treat accordingly Encouraged to increase activity as tolerated Discharge planning in the next 24 hours if patient remains afebrile The impression and plan of care has been dictated by Kelly Sumner, Nurse Practitioner as directed. Dr. Micah MD I have performed a history and examination and MDM of this patient, discussed the same with the dictator, and agree with the dictator's assessment and plan as written ,documented as a scribe. Based on total visit time, I have performed more than 50% of the visit. Objective - Vital Signs Vital signs: Vital Signs Temp 100.2 F H 05/13/24 07:00 Pulse 69 05/13/24 07:00 Resp 20 05/13/24 07:00 BP 114/58 05/13/24 07:00 Pulse Ox 95 05/13/24 07:00 FiO2 Intake & Output 05/12/24 05/13/24 05/13/24 18:59 06:59 18:59 Intake Total 59 590 Balance 59 590 Intake: Oral 59 590 Other: Voiding Method Toilet Urinal # Voids 2 2 - Labs CBC & Chem 7: 05/12/24 06:35 05/12/24 06:35 Labs: Abnormal Lab Results - Last 24 Hours (Table) 05/12/24 05/12/24 05/12/24 Range/Units 06:35 06:35 12:00 WBC 2.40 L (4.50-10.00) X 10*3/uL RBC 3.46 L (4.40-5.60) X 10*6/uL Hgb 10.4 L (13.0-17.0) g/dL Hct 33.0 L (39.6-50.0) % MCHC 31.5 L (32.0-37.0) g/dL RDW 15.1 H (11.5-14.5) % Plt Count 56 L (140-440) X 10*3/uL Neutrophils # 1.42 L (1.80-7.70) X 10*3/uL Lymphocytes # 0.50 L (0.90-5.00) X 10*3/uL Eosinophils # 0 L (0.04-0.35) X 10*3/uL Carbon Dioxide 17.2 L (21.6-31.8) mmol/L Anion Gap 13.80 H (4.00-12.00) mmol/L Glucose 132 H (70-110) mg/dL POC Glucose (mg/dL) 211 H (70-110) mg/dL Calcium 8.1 L (8.7-10.3) mg/dL 05/12/24 05/12/24 05/13/24 Range/Units 17:08 21:15 05:55 WBC (4.50-10.00) X 10*3/uL RBC (4.40-5.60) X 10*6/uL Hgb (13.0-17.0) g/dL Hct (39.6-50.0) % MCHC (32.0-37.0) g/dL RDW (11.5-14.5) % Plt Count (140-440) X 10*3/uL Neutrophils # (1.80-7.70) X 10*3/uL Lymphocytes # (0.90-5.00) X 10*3/uL Eosinophils # (0.04-0.35) X 10*3/uL Carbon Dioxide (21.6-31.8) mmol/L Anion Gap (4.00-12.00) mmol/L Glucose (70-110) mg/dL POC Glucose (mg/dL) 161 H 125 H 135 H (70-110) mg/dL Calcium (8.7-10.3) mg/dL
[2024-05-14 08:14] VITALS: BP 135/76; PULSE 69; RESP 17; TEMP 98.3
[2024-05-14 12:02] LABS: Glucose,Whole Blood 155 mg/dL (70-110)
--- NOTE | 2024-05-14 17:39 | P.PN ---
Subjective Progress Note Date: 05/14/24 Principal diagnosis: Reason for follow-up is Klebsiella UTI/pyelonephritis Patient is a 78-year-old male with a past medical history significant for coronary artery disease diabetes mellitus , COPD hypertension hyperlipidemia presenting to the hospital for evaluation of generalized abdominal pain and fever, patient has been diagnosed with symptomatic urinary tract infection urine with Klebsiella. On today's evaluation that is 05/14/2024,the patient denies any fever or any chills, patient is breathing comfortably on room air, the patient denies chest pain shortness of breath and no significant cough, patient denies abdominal pain, no nausea vomiting or diarrhea. Patient mention feeling better wants to go home. No new labs has been obtained today Objective - Vital Signs Vital signs: Vital Signs Temp 98.3 F 05/14/24 07:40 Pulse 69 05/14/24 07:40 Resp 17 05/14/24 07:40 BP 135/76 05/14/24 07:40 Pulse Ox 97 05/14/24 07:40 FiO2 Intake & Output 05/13/24 05/14/24 05/14/24 18:59 06:59 18:59 Other: Voiding Method Toilet Toilet Diaper Urinal Incontinent # Voids 1 4 - Exam GENERAL DESCRIPTION: An elderly male lying in bed in no distress RESPIRATORY SYSTEM: Unlabored breathing , decreased breath sounds at bases HEART: S1 S2 regular rate and rhythm , ABDOMEN: Soft , no tenderness EXTREMITIES: No edema feet - Labs CBC & Chem 7: 05/12/24 06:35 05/12/24 06:35 Labs: Abnormal Lab Results - Last 24 Hours (Table) 05/13/24 05/13/24 05/14/24 Range/Units 17:12 20:42 05:35 POC Glucose (mg/dL) 151 H 167 H 145 H (70-110) mg/dL 05/14/24 Range/Units 12:01 POC Glucose (mg/dL) 155 H (70-110) mg/dL Microbiology - Last 24 Hours (Table) 05/08/24 19:25 Blood Culture - Final Blood 05/08/24 19:10 Blood Culture - Final Blood Assessment and Plan (1) Fever Status: Acute Code(s): R50.9 - FEVER, UNSPECIFIED SNOMED Code(s): 755948752 (2) UTI (urinary tract infection) Status: Acute Code(s): N39.0 - URINARY TRACT INFECTION, SITE NOT SPECIFIED SNOMED Code(s): 77826324 Plan: 1patient presented to hospital with fever and abdominal pain in this patient who did have a positive UA with urine culture positive for Klebsiella concerning for pyelonephritis likely etiology CT abdominal pelvis did not show evidence of colitis or abdominal abscess. Also no mention of any hydronephrosis 2patient did have improvement in his fever pattern and blood culture has been negative patient to finish therapy with oral Cipro 500 mg twice a day for 10 days on discharge this was discussed with the [employer] for admitting team working on discharge Dictation was produced using [employer] dictation software. please excuse any grammatical, word or spelling errors. Time with Patient: Less than 30
--- NOTE | 2024-05-17 09:40 | P.DS ---
Providers Date of admission: 05/10/24 09:18 Expected date of discharge: 05/14/24 Attending physician: Alexandra Torres Consults: 05/11/24 09:11 Consult Physician Urgent Consulting Provider: Carey Thomas Consult Reason/Comments: uti, febrile Do you want consulting provider notified?: Yes 05/12/24 11:55 Consult Physician Urgent Consulting Provider: Casey Castillo Consult Reason/Comments: b/l renal calculi, uti Do you want consulting provider notified?: Yes Primary care physician: [facility] Course: Final diagnosis Acute urinary tract infection. Present on admission. Patient presented with fever and lower abdominal pain. 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 Patient will follow-up with Dr. Alayna Izaguirre in the outpatient setting upon discharge. Patient is to continue with current antibiotics and outpatient follow-up with infectious disease as well as urology as scheduled. Total time taken is greater than 35 minutes. Hospital course This is a 78-year-old male who was recently admitted with fevers with acute urinary tract infection with sepsis present on admission. Patient noted to have Klebsiella finalizing on the urine cultures and also noted to have bilateral nonobstructing renal calculi on imaging with no hydronephrosis noted. Patient evaluated by urology recommending clearance of the infection with outpatient follow-up for further surgical intervention if needed for renal stones. Patient continued to have fevers and infectious disease following maintained on antibiotics and will continue with oral Cipro on discharge with close outpatient follow-up. Patient is afebrile and reports to feeling well and would like to go home. Please refer to other consultation notes for further HPI. Currently no reports of chest pain, shortness of breath, or palpitations. Blood cultures remain negative. no reports of nausea or vomiting and patient is tolerating diet. Patient will be discharged home today. Physical exam: Gen: This is a 78-year-old male who is awake, alert and oriented x 3, well- developed, well-nourished, obese HEENT: Head is atraumatic, normocephalic. Pupils equal, round. Sclerae is anicteric. NECK: Supple. No JVD. No lymphadenopathy. No thyromegaly. LUNGS: Clear to auscultation. No wheezes or rhonchi. No intercostal retractions. HEART: Regular rate and rhythm. No murmur. ABDOMEN: Soft. Obese. Bowel sounds are present. No masses. No tenderness. EXTREMITIES: No pedal edema. No calf tenderness. NEUROLOGICAL: Patient is awake, alert and oriented x3. Cranial nerves 2 through 12 are grossly intact. Please refer to medication reconciliation sheet for a list of medications. The impression and plan of care has been dictated by Kelly Sumner, Nurse Practitioner as directed. Dr. Micah MD I have performed a history and examination and MDM of this patient, discussed the same with the dictator, and agree with the dictator's assessment and plan as written ,documented as a scribe. Based on total visit time, I have performed more than 50% of the visit. Patient Condition at Discharge: Stable Plan - Discharge Summary Discharge Rx Participant: Yes New Discharge Prescriptions: New Cyanocobalamin (Vitamin B-12) [Vitamin B-12] 1,000 mcg PO DAILY #30 tablet Ciprofloxacin HCl [Cipro] 500 mg PO BID 10 Days #20 tab Continue metFORMIN HCL [Glucophage] 1,000 mg PO BID allopurinoL [Zyloprim] 100 mg PO DAILY carvediloL [Coreg] 12.5 mg PO BID Insulin NPH Hum/Reg Insulin Hm [NovoLIN 70-30 100 Unit/ml Vial] 30 unit SQ BID@0800,1700 Nitroglycerin Sl Tabs [Nitrostat] 0.4 mg SL Q5M PRN PRN Reason: Chest Pain Aspirin EC [Ecotrin Low Dose] 81 mg PO DAILY Atorvastatin [Lipitor] 80 mg PO DAILY Albuterol Inhaler [Ventolin Hfa Inhaler] 2 puff INHALATION RT-Q4H PRN PRN Reason: Shortness Of Breath Ondansetron Odt [Zofran ODT] 4 mg PO Q8HR PRN #10 tab PRN Reason: Nausea Ferrous Sulfate [Iron (65 MG Elemental)] 325 mg PO DAILY Magnesium 250 mg PO DAILY Acetaminophen Tab [Tylenol] 500 - 1,000 mg PO Q6H PRN MDD 8 TABS PRN Reason: Pain Discontinued lisinopriL [Zestril] 2.5 mg PO DAILY Discharge Medication List metFORMIN HCL [Glucophage] 1,000 mg PO BID 06/07/14 [History] Nitroglycerin Sl Tabs [Nitrostat] 0.4 mg SL Q5M PRN 07/17/21 [History] allopurinoL [Zyloprim] 100 mg PO DAILY 07/17/21 [History] carvediloL [Coreg] 12.5 mg PO BID 11/27/21 [History] Aspirin EC [Ecotrin Low Dose] 81 mg PO DAILY 02/10/22 [History] Atorvastatin [Lipitor] 80 mg PO DAILY 03/07/22 [History] Albuterol Inhaler [Ventolin Hfa Inhaler] 2 puff INHALATION RT-Q4H PRN 07/22/23 [History] Insulin NPH Hum/Reg Insulin Hm [NovoLIN 70-30 100 Unit/ml Vial] 30 unit SQ BID@0800,1700 10/16/23 [History] Ondansetron Odt [Zofran ODT] 4 mg PO Q8HR PRN #10 tab 02/26/24 [Rx] Ferrous Sulfate [Iron (65 MG Elemental)] 325 mg PO DAILY 03/12/24 [History] Magnesium 250 mg PO DAILY 03/12/24 [History] Acetaminophen Tab [Tylenol] 500 - 1,000 mg PO Q6H PRN MDD 8 TABS 05/09/24 [History] Ciprofloxacin HCl [Cipro] 500 mg PO BID 10 Days #20 tab 05/14/24 [Rx] Cyanocobalamin (Vitamin B-12) [Vitamin B-12] 1,000 mcg PO DAILY #30 tablet 05/14/24 [Rx] Follow up Appointment(s)/Referral(s): Casey Castillo MD [STAFF PHYSICIAN] - 1 Week (office will call with appointment time) Carey Thomas MD [STAFF PHYSICIAN] - 10 Days (office closed at time of discharge Please call Friday to schedule appointment ) Carrie Bains MD [Primary Care Provider] - 1-2 days Patient Instructions/Handouts: Urinary Tract Infection in Men (DC) Activity/Diet/Wound Care/Special Instructions: Activity limited until follow-up Follow-up with primary care provider on discharge Continue taking medications as prescribed until finished Follow-up with urology outpatient Discharge Disposition: HOME SELF-CARE
== END 2024-05-14 14:06 | disposition home or self-care (01) | DRG 872 ==
LOC: EC 18:11 → 6NMEDSUR 05-09 00:25 → OBSVTOIN 05-10 09:18 → 1SOBS 05-12 19:02 → 4SSUR 05-13 16:41
PROVIDERS: ADMIT Hospitalist; ATTEND Hospitalist
DX: A41.59 Other Gram-negative sepsis (principal); K76.6 Portal hypertension; I50.22 Chronic systolic (congestive) heart failure; E87.1 Hypo-osmolality and hyponatremia; N12 Tubulo-interstitial nephritis, not specified as acute or chronic; E66.9 Obesity, unspecified; I25.2 Old myocardial infarction; R65.20 Severe sepsis without septic shock; K74.60 Unspecified cirrhosis of liver; I11.0 Hypertensive heart disease with heart failure; I25.5 Ischemic cardiomyopathy; Z20.822 Contact with and (suspected) exposure to COVID-19; F17.210 Nicotine dependence, cigarettes, uncomplicated; E78.5 Hyperlipidemia, unspecified; D69.6 Thrombocytopenia, unspecified; Z68.37 Body mass index [BMI] 37.0-37.9, adult; E86.1 Hypovolemia; J44.9 Chronic obstructive pulmonary disease, unspecified; I25.10 Atherosclerotic heart disease of native coronary artery without angina pectoris; Z79.4 Long term (current) use of insulin; Z79.82 Long term (current) use of aspirin; Z79.84 Long term (current) use of oral hypoglycemic drugs; Z79.899 Other long term (current) drug therapy; Z87.11 Personal history of peptic ulcer disease; Z87.442 Personal history of urinary calculi; Z90.49 Acquired absence of other specified parts of digestive tract; Z96.653 Presence of artificial knee joint, bilateral; Z95.5 Presence of coronary angioplasty implant and graft; Z87.19 Personal history of other diseases of the digestive system; Z86.73 Personal history of transient ischemic attack (TIA), and cerebral infarction without residual deficits; Z87.01 Personal history of pneumonia (recurrent); R32 Unspecified urinary incontinence
CPT/HCPCS: 36415; 71046; 74019; 74177; 80048; 80053; 81001; 82150; 82607; 82747; 83036; 83605; 83690; 84145; 85025; 85610; 85730; 86140; 87040; 87077; 87086; 87186; 87636; 96361; 96365; 96366; 96367; 99285

== ENCOUNTER → 2024-10-14 | Outpatient (CLI) | payer MEDICARE ==
--- NOTE | 2024-10-14 15:45 | US ---
EXAMINATION TYPE: US extremity nonvasc mass RT DATE OF EXAM: 10/14/2024 COMPARISON: NONE CLINICAL INDICATION: Male, 79 years old with history of M78.89 SOFT TISSUE MASS; Swelling in right up per forearm/anterior elbow since patient had an IV at the location 7 months ago. No pain TECHNIQUE: Scanned right upper forearm/anterior elbow. FINDINGS/IMPRESSION: No abnormalities seen by ultrasound at this time. No definitive masses or fluid collections. Consider follow-up MRI if there is continued clinical concern. [facility], , 10/14/2024 3:42 PM
== END | disposition home or self-care (01) ==
LOC: RADUSWWP 15:13
PROVIDERS: ATTEND Family Medicine
DX: M79.89 Other specified soft tissue disorders (principal)

== ENCOUNTER 2025-05-19 19:07 | Emergency (ER) | payer MEDICARE ==
[2025-05-19 19:23] VITALS: RESP 18
[2025-05-19] MEDS: DIPH,PERTUS(ACELL)TETVAC-LF 0.5 ML VIAL IM ONE (23:36)
[2025-05-19] MEDS: TOPICAL SKIN ADHESIVE 1 EACH AMP TOPICAL ONE (23:36)
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
--- NOTE | 2025-05-19 23:57 | XR ---
EXAMINATION TYPE: XR toes RT DATE OF EXAM: 05/19/2025 11:51 PM INDICATION: Patient age:Male; 79 years old; Reason for study: injury; PHH. pain COMPARISON: Foot radiograph 04/04/2017 TECHNIQUE: The toes of the right foot was examined in the AP, oblique, and lateral projections. FINDINGS: Diffuse bone demineralization. No evidence of any acute osseous pathology. No evidence of soft tissu e swelling. Joints are preserved. Incidental note is made of symphalangism of the fifth distal interp halangeal joint. No radiopaque foreign body. IMPRESSION: No evidence of acute fracture. No radiopaque foreign body. [facility], , 05/19/2025 11:55 PM
[2025-05-20 00:31] VITALS: BP 121/79; PULSE 64; TEMP 98.1
== END 2025-05-20 02:02 | disposition home or self-care (01) ==
LOC: EC 19:07
DX: S91.114A Laceration without foreign body of right lesser toe(s) without damage to nail, initial encounter (principal); Z23 Encounter for immunization; Z87.891 Personal history of nicotine dependence; W31.9XXA Contact with unspecified machinery, initial encounter
CPT/HCPCS: 12002; 90471; 90715; 99283